=== PATIENT | male | born 1975 | race Caucasian/White ===

== ENCOUNTER 2017-04-14 18:55 | Emergency (ER) | payer BC ==
[~2017-04-14] VITALS: Ht 193 cm; Wt 93.2 kg
[~2017-04-14 18:55] MED LIST: ACET325T96 PO; AMPH20TA2 PO; OMEP20CA59 PO; PRO BIOTIC PO; VENL150C56 PO
[2017-04-14 19:00] VITALS: TEMP 36.8; Ht 193 cm; Wt 93.2 kg
[2017-04-14] MEDS ORDERED: ESCI1TAB6 PO (19:06)
[2017-04-14] MEDS ORDERED: LXP10 PO (19:06)
[2017-04-14] MEDS ORDERED: ATV5X PO (19:06)
[2017-04-14] MEDS ORDERED: OXYCODONE HCL IR 5 MG TAB (IMMEDIATE RELEASE) PO STA (19:14)
[2017-04-14] MEDS ORDERED: ONDANSETRON 4MG OD TAB PO ONE (19:15)
--- NOTE | 2017-04-14 20:13 | DIAGNOSTIC IMAGING REPORT ---
RIGHT RIBS UNILATERAL WITH PA CHEST CLINICAL HISTORY: right rib pain fall Right COMPARISON STUDY: Chest 11/28/2012. FINDINGS: The lungs are clear. The heart is normal in size. No pleural effusions. No pneumothorax. No rib fractures. IMPRESSION: No rib fractures. No pneumothorax. Electronically signed by: Eric Renee M.D. 04/14/2017 8:11 PM Dictated Date/Time: 04/14/2017 8:09 PM
--- NOTE | 2017-04-14 20:15 | EMERGENCY ROOM VISIT NOTE ---
History First contact with patient: 19:08 Chief Complaint: RIB PAIN Stated Complaint: FELL OUT OF H[place]MOCK, RIGHT CHEST/RIB PAIN History of Present Illness The patient is a 42 year old male who presents to the Emergency Room with complaints of right anterior rib pain. The patient states that he went to get into a freestanding hammock and missed and fell out. He states that he fell onto the ground, striking his right ribs on the concrete and the base of the hammock. The patient complains of marked pain in the right lower anterior and lateral ribs. He rates his discomfort an 8/10. He took ibuprofen with no significant improvement. He states he also scraped his left foot on the concrete but denies any pain in his foot. He is able to walk without difficulty. He denies striking his head or having loss of consciousness. He denies any nausea or vomiting. He denies any abdominal pain. Review of Systems A 10 system review of systems was completed with positives and pertinent negatives listed in the HPI. Past Medical/Surgical History Medical Problems: (1) ALS (amyotrophic lateral sclerosis) (2) Bronchitis (3) Depression (4) Vasectomy Social History Smoking Status: Never Smoker Alcohol Use: occasionally Drug Use: none Marital Status: Occupation Status: employed Current/Historical Medications Scheduled Amphetamine-Dextroamphetamine 20MG (Adderall 20MG), 20 MG PO BID Escitalopram Oxalate (Lexapro), 1 TAB PO DAILY Escitalopram Oxalate (Escitalopram Oxalate), 1 TAB PO DAILY Lorazepam (Lorazepam), 2 TAB PO HS Omeprazole (Prilosec), 20 MG PO QAM Scheduled PRN Oxycodone Ir (Roxicodone Ir), 1-2 TAB PO Q4H PRN for Pain Physical Exam Vital Signs Date Time Temp Pulse Resp B/P (MAP) Pulse Ox O2 Delivery O2 Flow Rate FiO2 04/14/17 22:18 82 20 126/76 98 04/14/17 21:15 90 18 128/81 98 Room Air 04/14/17 19:00 36.8 105 18 135/85 95 Room Air Physical Exam VITALS: Vitals are noted on the nurse's note and reviewed by myself. Vital signs stable. The patient is afebrile. He is not hypoxic. GENERAL: This is a 42-year-old male, in no acute distress, nondiaphoretic, well- developed well-nourished. SKIN: The skin was without rashes, erythema, edema, or bruising. There is no tenting of the skin. Capillary reflex less than 2 seconds. HEAD: Normocephalic atraumatic. EARS: The external ears are normal in appearance. EYES: Pupils equal round and reactive to light and accommodation. Conjunctivae without injection, sclerae without icterus. Extraocular movements intact. NOSE: Patent, turbinates without inflammation or discharge. MOUTH: Mucous membranes moist. Tonsils are not enlarged. Pharynx without erythema or exudate. Uvula midline. Airway patent. Tongue does not deviate. NECK: Supple without nuchal rigidity. No JVD. HEART: Regular rate and rhythm without murmurs gallops or rubs. LUNGS: Clear to auscultation bilaterally without wheezes, rales or rhonchi. There is marked anterior chest wall tenderness. No retractions or accessory muscle use. ABDOMEN: Positive bowel sounds x 4. Soft, nontender, without masses or organomegaly. MUSCULOSKELETAL: No muscle atrophy, erythema, or edema noted. Full range of motion in all extremities. No tenderness to palpation. Normal gait. Strength 5/5 throughout. NEURO: Patient was alert and oriented to person place and time. No focal neurological deficits. Medical Decision & Procedures ER Provider Diagnostic Interpretation: RIGHT RIBS UNILATERAL WITH PA CHEST CLINICAL HISTORY: right rib pain fall Right COMPARISON STUDY: Chest 11/28/2012. FINDINGS: The lungs are clear. The heart is normal in size. No pleural effusions. No pneumothorax. No rib fractures. IMPRESSION: No rib fractures. No pneumothorax. Laboratory Results 04/14/17 20:44 Red Blood Count 4.83, Mean Corpuscular Volume 89.9, Mean Corpuscular Hemoglobin 31.3, Mean Corpuscular Hemoglobin Concent 34.8, Mean Platelet Volume 10.7, Neutrophils (%) (Auto) 64.0, Lymphocytes (%) (Auto) 26.1, Monocytes (%) (Auto) 7.4, Eosinophils (%) (Auto) 2.0, Basophils (%) (Auto) 0.5, Neutrophils # (Auto) 3.52, Lymphocytes # (Auto) 1.44, Monocytes # (Auto) 0.41, Eosinophils # (Auto) 0.11, Basophils # (Auto) 0.03 Test 04/14/17 20:44 04/14/17 20:48 White Blood Count 5.51 K/uL (4.8-10.8) Red Blood Count 4.83 M/uL (4.7-6.1) Hemoglobin 15.1 g/dL (14.0-18.0) Hematocrit 43.4 % (42-52) Mean Corpuscular Volume 89.9 fL (80-100) Mean Corpuscular Hemoglobin 31.3 pg (25-34) Mean Corpuscular Hemoglobin Concent 34.8 g/dl (32-36) Platelet Count 232 K/uL (130-400) Mean Platelet Volume 10.7 fL (7.4-10.4) Neutrophils (%) (Auto) 64.0 % Lymphocytes (%) (Auto) 26.1 % Monocytes (%) (Auto) 7.4 % Eosinophils (%) (Auto) 2.0 % Basophils (%) (Auto) 0.5 % Neutrophils # (Auto) 3.52 K/uL (1.4-6.5) Lymphocytes # (Auto) 1.44 K/uL (1.2-3.4) Monocytes # (Auto) 0.41 K/uL (0.11-0.59) Eosinophils # (Auto) 0.11 K/uL (0-0.5) Basophils # (Auto) 0.03 K/uL (0-0.2) RDW Standard Deviation 38.8 fL (36.4-46.3) RDW Coefficient of Variation 12.0 % (11.5-14.5) Immature Granulocyte % (Auto) 0.0 % Immature Granulocyte # (Auto) 0.00 K/uL (0.00-0.02) Bedside Hemoglobin 15.0 g/dl (14.0-18.0) Bedside Hematocrit 44 % (42-52) Bedside Sodium 141 mEq/L (135-144) Bedside Potassium 3.6 mEq/L (3.3-5.0) Bedside Chloride 100 mEq/L (101-112) Bedside Total CO2 24 mEq/l (24-31) Anion Gap 22.0 mmol/L (16-25) Bedside Blood Urea Nitrogen 8 mg/dl (7-18) Bedside Creatinine 0.9 mg/dl (0.6-1.3) Bedside Glucose (other) 113 mg/dl (70-99) Bedside Ionized Calcium ([place]) 1.22 mmol/l (1.12-1.32) Medications Administered Medications (Trade) Dose Ordered Sig/Terrell Route Start Time Stop Time Status Last Admin Dose Admin Oxycodone HCl (Roxicodone Immediate Rel Tab) 5 mg NOW STAT PO 04/14/17 19:14 04/14/17 19:15 DC 04/14/17 19:29 5 MG Ondansetron HCl (Zofran Odt) 4 mg ONE ONCE PO 04/14/17 19:15 04/14/17 19:16 DC 04/14/17 19:29 4 MG Oxycodone HCl (Roxicodone Immediate Rel 5MG Home Pack) 1 homepack UD ONCE PO 04/14/17 21:00 04/14/17 21:01 DC 04/14/17 22:10 1 HOMEPACK ED Course The patient was seen and examined. Previous visits were reviewed. The patient sustained a mechanical fall just prior to arrival. He complains of right anterior and lateral rib pain. An x-ray does not reveal any acute rib fracture , pneumothorax or hemothorax. The patient was given OxyIR and Zofran in the emergency department. The patient did not initially have any abdominal tenderness on examination. After the studies were obtained, I did a repeat abdominal examination. The patient does have mild tenderness in the right upper quadrant. An IV was initiated, i-STAT and CBC were obtained. CT scan of the abdomen and pelvis with IV and oral contrast, trauma prep, was ordered. At the time of sign out, CT scan of the abdomen and pelvis was pending. The case was signed out to Lis Steele PA-C. Please see her dictation for CT results and disposition. The patient will be treated with oxycodone for the rib contusion. He should follow-up with his family doctor in one week for a recheck and repeat x-ray. He should return with any worsening symptoms. Medical Decision DIFFERENTIAL DIAGNOSIS: Aortic dissection, myocarditis, pericarditis, cervical disc disease, costochondritis, herpes zoster, rib fracture, pleuritis, pneumonia , pulmonary embolus, tension pneumothorax, anxiety disorder, somatoform disorder , choledocholithiasis, status, esophagitis, esophageal spasm, esophageal reflux , esophageal rupture, pancreatitis, peptic ulcer disease, cardiac ischemia, ST elevation [place], acute coronary syndrome, arrhythmia, coronary artery vasospasm. vavular heart disease, coronary artery disease, among others. [facility] Drug Monitoring Program Search Results: patient reviewed within database, no issues identified Impression Primary Impression: Rib pain on right side Additional Impressions: Fall Upper abdominal pain Departure Information Dispostion Home / Self-Care Condition GOOD Prescriptions Oxycodone Ir (Roxicodone Ir) 5 Mg Tab 1-2 TAB PO Q4H Y for Pain, #36 TAB For Initial Treatment Prov: Rachna Lott PA-C 04/14/17 Referrals Vinayak Guillen M.D.([facility]) (PCP) Patient Instructions ED Contusion Rib, [facility] Additional Instructions Ibuprofen 600 mg every 6-8 hours or moderate pain Oxy IR 1-2 tablets every 4-6 hrs as needed for worse pain. No driving or alcohol use with Oxy IR. Contact your family doctor to schedule a follow-up appointment in 1 week for recheck and potential repeat x-rays if symptoms persist Return with any worsening symptoms Problem Qualifiers
[2017-04-14] MEDS ORDERED: OPTIRAY 320 IV PRN (20:45)
[2017-04-14] MEDS ORDERED: OXYC1TAB3 PO (20:47)
[2017-04-14] MEDS ORDERED: OXYCODONE IR HOME PACK PO ONE (21:00)
[2017-04-14 21:05] LABS: ISTAT CREATININE 0.9 mg/dl (0.6-1.3); ISTAT IONIZED CALCIUM 1.22 mmol/l (1.12-1.32)
[2017-04-14 21:25] LABS: BASO % 0.5 %; BASO ABS # 0.03 K/uL (0-0.2); COMPLETE YES; HEMATOCRIT 43.4 % (42-52); LYMPH % 26.1 %; LYMPH ABS # 1.44 K/uL (1.2-3.4); MEAN CELL VOLUME 89.9 fL (80-100); MEAN CORPUSCULAR HEMOGLOBIN 31.3 pg (25-34); MEAN CORPUSCULAR HGB CONC 34.8 g/dl (32-36); MEAN PLATELET VOLUME 10.7 fL (7.4-10.4); MONO % 7.4 %; PLATELET COUNT 232 K/uL (130-400); RED BLOOD COUNT 4.83 M/uL (4.7-6.1); WHITE BLOOD COUNT 5.51 K/uL (4.8-10.8)
--- NOTE | 2017-04-14 21:32 | DIAGNOSTIC IMAGING REPORT ---
ABDOMEN AND PELVIS CT WITH IV AND ORAL CONTRAST CT DOSE: 463.93 mGy.cm HISTORY: Right upper quadrant pain. Fall. TECHNIQUE: Multiaxial CT images of the abdomen and pelvis were performed following the use of intravenous and oral contrast. A dose lowering technique was utilized adhering to the principles of ALARA. COMPARISON STUDY: Abdomen and pelvis CT 11/28/2012. FINDINGS: The lung bases are clear. No pneumoperitoneum. No pneumatosis. No fractures within the visualized osseous structures. Stable 5 mm hypodense lesion within the inferior right hepatic lobe. This is too small to characterize but favors a cyst. The spleen, pancreas, gallbladder, adrenal glands, and kidneys are unremarkable. No retroperitoneal lymphadenopathy. Normal bladder. No bowel wall thickening or obstruction. The appendix appears surgically absent. IMPRESSION: No acute traumatic process within the abdomen or pelvis. Electronically signed by: Eric Renee M.D. 04/14/2017 9:31 PM Dictated Date/Time: 04/14/2017 9:24 PM
--- NOTE | 2017-04-14 22:05 | EMERGENCY ROOM VISIT NOTE ---
ED Visit Note ED NOTE: Care of this 42-year-old white male patient was signed out to me from Elham Lott PA-C, at change of shift. Please refer to her dictation for the complete history, physical and ED course to this point. Briefly, patient and a fall, injuring his right ribs. Initial rib and chest x-rays were negative for acute fracture or pneumothorax. On repeat examination the patient had right upper quadrant pain, thus CT scan of the abdomen and pelvis with IV contrast was ordered. CT scan did not note any acute post traumatic findings in the abdomen or the pelvis. Radiographic studies were reviewed with the patient and his significant other. Supportive care measures were reinforced. He was given an oxycodone home pack. ABDOMEN AND PELVIS CT WITH IV AND ORAL CONTRAST CT DOSE: 463.93 mGy.cm HISTORY: Right upper quadrant pain. Fall. TECHNIQUE: Multiaxial CT images of the abdomen and pelvis were performed following the use of intravenous and oral contrast. A dose lowering technique was utilized adhering to the principles of ALARA. COMPARISON STUDY: Abdomen and pelvis CT 11/28/2012. FINDINGS: The lung bases are clear. No pneumoperitoneum. No pneumatosis. No fractures within the visualized osseous structures. Stable 5 mm hypodense lesion within the inferior right hepatic lobe. This is too small to characterize but favors a cyst. The spleen, pancreas, gallbladder, adrenal glands, and kidneys are unremarkable. No retroperitoneal lymphadenopathy. Normal bladder. No bowel wall thickening or obstruction. The appendix appears surgically absent. IMPRESSION: No acute traumatic process within the abdomen or pelvis.
[2017-04-14 22:18] VITALS: BP 126/76; PULSE 82; O2SAT 98
== END 2017-04-14 22:22 | disposition home or self-care (01) ==
LOC: C.EDB 18:57 → C.EDD 22:22
DX: S29.9XXA Unspecified injury of thorax, initial encounter (principal); R07.81 Pleurodynia; W17.89XA Other fall from one level to another, initial encounter; F32.9 Major depressive disorder, single episode, unspecified; Z79.899 Other long term (current) drug therapy

== ENCOUNTER 2020-02-14 16:17 | Inpatient (IN) ==
[2020-02-14 16:53] LABS: Basophils # (auto) 0.03 K/uL (0-0.2); Basophils % (auto) 0.5 %; Eosinophils # (auto) 0.05 K/uL (0-0.5); Eosinophils % (auto) 0.8 %; Hematocrit (blood only) 48.2 % (42-52); Hemoglobin 16.6 g/dL (14.0-18.0); Immature Granulocytes # (auto) 0.01 K/uL (0.00-0.02); Immature Granulocytes % (auto) 0.2 %; Lymphocytes # (auto) 1.21 K/uL (1.2-3.4); Lymphocytes % (auto) 18.9 %; Mean Corpuscular Hgb Conc 34.4 g/dL (32-36); Mean Corpuscular Volume 92.9 fL (80-100); Monocytes # (auto) 0.46 K/uL (0.11-0.59); Monocytes % (auto) 7.2 %; Neutrophils # (auto) 4.63 K/uL (1.4-6.5); Neutrophils % (auto) 72.4 %; Platelet Count 169 K/uL (130-400); RDW Coefficient of Variation 12.7 % (11.5-14.5); RDW Standard Deviation 42.8 fL (36.4-46.3); Red Blood Count 5.19 M/uL (4.7-6.1); White Blood Count 6.39 K/uL (4.8-10.8)
[2020-02-14 16:54] LABS: Albumin Level 3.7 gm/dl (3.4-5.0); BUN Creatinine Ratio 16.4 (10-20); Calcium 8.3 mg/dl (8.5-10.1); Creatinine Clr Calc Pharmacy 161.2 ml/min; Est GFR (African American) 135.4; Est GFR (Non-African American) 116.9; Potassium 3.5 mmol/L (3.5-5.1)
[2020-02-14 16:57] LABS: INR 1.1 (0.9-1.1); Partial Thromboplastin Ratio 0.9; Partial Thromboplastin Time 25.9 Seconds (21.0-31.0); Prothrombin Time 11.9 Seconds (9.0-12.0)
[2020-02-14] MEDS ORDERED: OPTIRAY 320 125ml IV PRN (17:07)
[2020-02-14 17:18] LABS: Albumin Globulin Ratio 0.9 (0.9-2); Bilirubin,Total 0.8 mg/dl (0.2-1); Globulin 3.9 gm/dl (2.5-4.0); Total Protein 7.6 gm/dl (6.4-8.2); Troponin I 0.069 ng/ml (0-0.045)
--- NOTE | 2020-02-14 17:26 | Emergency Department Note ---
History of Present Illness General Chief complaint: Chest Pain Stated complaint: CHEST PAIN, SOB Time Seen by Provider: 02/14/20 16:42 Source: patient Limitations: no limitations History of Present Illness Provider complaint: sob Onset (ago): hour(s) Location: chest Radiation: non-radiation Severity: moderate Maximum Pain Intensity: 2 Exacerbated By: + movement Associated symptoms: no cough, no nausea/vomiting and no syncope Treatments prior to arrival: none This is a 44-year-old male with a history of ALS who presents after sudden onset of shortness of breath today. Patient states he has felt well and been working from home and abruptly noted that he was short of breath which was worse when he attempted to walk to the bathroom. Patient states he did feel lightheaded and dizzy but did not pass out. Patient had a sense of rapid heart rate accompanying this, no skipping or fluttering. Patient denies any prior history of asthma or COPD, denies any was ever smoker. No prior history of heart problems. Patient states that this point the ALS had not yet affected his breathing in any way. Patient states he does have chronic lower extremity edema, right greater than left, and recently has started wearing compression stockings. No history of DVT/PE in him or any family member. No other recent change in diet or medication. Patient does feel improved with the oxygen that was applied here by nursing staff. Pt seen during a time of high acuity and national emergency pandemic while wearing PPE. Home Medications Home Medications Medication Instructions Recorded Confirmed Type dextroamphetamine-amphetamine 30 mg PO BID 01/31/19 02/14/20 History escitalopram oxalate 20 mg PO QAM 01/31/19 02/14/20 History omeprazole 20 mg PO QAM 01/31/19 02/14/20 History lorazepam [Ativan] 1 mg PO DIRECTED PRN 06/17/19 02/14/20 History multivitamin 1 tab PO DAILY 07/09/19 02/14/20 History mirtazapine 15 mg PO HS 02/14/20 02/14/20 History ondansetron HCl [Zofran] 4 mg PO BID PRN 02/14/20 02/14/20 History Allergies Allergy/AdvReac Type Severity Reaction Status Date / Time tramadol AdvReac Unknown GI Verified 02/14/20 17:48 discomfort Past Med/Surg History Medical History ADD (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 ALS (amyotrophic lateral sclerosis) (Acute) GERD (gastroesophageal reflux disease) Surgical History H/O rhinoplasty History of vasectomy S/P left knee arthroscopy Family History Father Pulmonary embolism Mother Hypertension Social History Preferred Language: Thai Communication Ability: Effective Clerical Order Filler Required: No Beliefs That Will Affect Care: None marital status: Current Living Situation: Family current occupational status: employed Other Information That Helps Us Care for You: No Feels Safe at Home: Yes Safety Concerns: Feels Safe At This Time Smoking Status: Never smoker Do You Dip or Chew Tobacco: No ; Second Hand Exposure: No ; Tobacco Cessation Education Requested by Patient: No Hx Alcohol Use: Yes Alcohol type: hard liquor Hx Substance Use: No Review of Systems See HPI for pertinent positives & negatives. and A total of 10 systems reviewed and were otherwise negative Physical Exam Vital Signs Vital Signs - 24 hr 02/14/20 16:17 02/14/20 16:18 02/14/20 16:37 Temperature 37.0 C Temperature Source Oral Pulse Rate 143 H 144 H Pulse Rate from SpO2 Sensor 144 H Respiratory Rate 28 H 26 H Blood Pressure 129/99 129/99 Blood Pressure Mean 111 109 Pulse Oximetry 93 93 Oxygen Delivery Method Room Air Nasal Cannula Oxygen Flow Rate 2 Sepsis Recent Fever Within 48 Hours No Sepsis New/Unexplained Change in Mental Status No Sepsis Action Taken by Nursing No Action Required Oxygen Flow Rate - Titration Pulse Oximetry Post Tiitration 02/14/20 16:40 02/14/20 16:43 02/14/20 16:44 Temperature Temperature Source Pulse Rate 132 H Pulse Rate from SpO2 Sensor 132 H Respiratory Rate 22 Blood Pressure 123/98 Blood Pressure Mean 102 Pulse Oximetry 89 L 89 L 96 Oxygen Delivery Method Room Air Nasal Cannula Room Air Oxygen Flow Rate 0 2 Sepsis Recent Fever Within 48 Hours Sepsis New/Unexplained Change in Mental Status Sepsis Action Taken by Nursing Oxygen Flow Rate - Titration 2 4 Pulse Oximetry Post Tiitration 89 L 92 02/14/20 17:00 02/14/20 17:20 02/14/20 17:30 Temperature Temperature Source Pulse Rate 139 H 130 H 130 H Pulse Rate from SpO2 Sensor 139 H 131 H 129 H Respiratory Rate 27 H 28 H 27 H Blood Pressure 115/93 127/97 122/96 Blood Pressure Mean 97 121 99 Pulse Oximetry 97 100 98 Oxygen Delivery Method Nasal Cannula Oxygen Flow Rate 4 Sepsis Recent Fever Within 48 Hours Sepsis New/Unexplained Change in Mental Status Sepsis Action Taken by Nursing Oxygen Flow Rate - Titration Pulse Oximetry Post Tiitration 02/14/20 18:00 Temperature Temperature Source Pulse Rate 135 H Pulse Rate from SpO2 Sensor 135 H Respiratory Rate 24 Blood Pressure 130/102 H Blood Pressure Mean 105 Pulse Oximetry 99 Oxygen Delivery Method Nasal Cannula Oxygen Flow Rate 4 Sepsis Recent Fever Within 48 Hours Sepsis New/Unexplained Change in Mental Status Sepsis Action Taken by Nursing Oxygen Flow Rate - Titration Pulse Oximetry Post Tiitration GENERAL: alert, well appearing, well nourished, no distress, non-toxic EYE EXAM: normal conjunctiva, PERRL and EOM's grossly intact OROPHARYNX: no exudate, no erythema, lips, buccal mucosa, and tongue normal and mucous membranes are moist NECK: supple, no nuchal rigidity, no adenopathy, non-tender LUNGS: Clear to auscultation. Normal chest wall mechanics, no w/r/r HEART: no murmurs, S1 normal and S2 normal, sinus tachycardia at 140 on telemetry ABDOMEN: abdomen soft, non-tender, normo-active bowel sounds, no masses, no rebound or guarding. BACK: Back is symmetrical on inspection and there is no deformity, no midline tenderness, no CVA tenderness. SKIN: no rashes and no bruising UPPER EXTREMITIES: upper extremities are grossly normal. FROM, nml pulses b/l. Mild muscular atrophy noted bilaterally. LOWER EXTREMITIES: Bilateral 2+ pitting edema, right greater than left. No palpable mass, no calf tenderness FROM, nml pulses b/l. Mild muscular atrophy noted. NEURO EXAM: Normal sensorium, cranial nerves II-XII grossly intact, normal speech, no gross weakness of arms, no gross weakness of legs. Gross sensation intact. Course Course 1731: Pt updated on results. 1740: Discussed with Dr. Gunter. States heparin vs tPA should discussed with the patient. 1750: Patient comfortable with the plan to initiate heparin. He is aware that should his condition worsen they could reconsider additional use of TPA. 1800: Case discussed with Estephanie Keenan hospitalist service. Dr. Powers will at the accepting attending. Administered Medications Acetaminophen (Tylenol) 650 mg PO Q4H PRN PRN Reason: Pain Stop: 03/16/20 19:56 Last Admin: 02/15/20 20:11 Dose: 650 mg Documented by: [id number] Amphetamine/Dextroamphetamine (Adderall) 30 mg PO BID@0800,1200 [facility] Stop: 02/29/20 07:59 Last Admin: 02/15/20 12:54 Dose: Not Given Documented by: [id number] Admin: 02/15/20 07:59 Dose: Not Given Documented by: [id number] Escitalopram Oxalate (Lexapro Tab) 20 mg PO QAM [facility] Stop: 03/16/20 08:59 Last Admin: 02/15/20 07:54 Dose: 20 mg Documented by: [id number] Heparin Sodium/Dextrose (Heparin Sodium/Dextrose) 25,000 units in 500 mls @ 27 mls/hr IV .[id number] [facility]; Protocol Stop: 03/15/20 17:59 Last Titration: 02/15/20 19:10 Dose: 1,350 units/hr, 27 mls/hr Documented by: [id number] Cosigned by: [id number] Admin: 02/15/20 13:45 Dose: 1,350 units/hr, 27 mls/hr Documented by: [id number] Cosigned by: [id number] Titration: 02/15/20 12:47 Dose: 1,350 units/hr, 27 mls/hr Documented by: [id number] Cosigned by: [id number] Titration: 02/15/20 07:17 Dose: 1,350 units/hr, 27 mls/hr Documented by: [id number] Cosigned by: [id number] Titration: 02/15/20 00:59 Dose: 1,350 units/hr, 27 mls/hr Documented by: [id number] Cosigned by: [id number] Admin: 02/14/20 18:43 Dose: 1,450 units/hr, 29 mls/hr Documented by: [id number] Cosigned by: [id number] Lorazepam (Ativan) 1 mg PO DAILY PRN PRN Reason: Anxiety/Agitation Stop: 03/16/20 13:07 Last Admin: 02/15/20 13:45 Dose: 1 mg Documented by: [id number] Lorazepam (Ativan) 1 mg PO HS PRN PRN Reason: Insomnia Stop: 03/16/20 22:15 Last Admin: 02/15/20 22:35 Dose: 1 mg Documented by: [id number] Mirtazapine (Remeron) 15 mg PO HS [facility] Stop: 03/15/20 20:59 Last Admin: 02/15/20 20:10 Dose: 15 mg Documented by: [id number] Admin: 02/14/20 21:27 Dose: 15 mg Documented by: [id number] Multivitamins (Multivitamin Tab) 1 tab PO DAILY [facility] Stop: 03/16/20 08:59 Last Admin: 02/15/20 07:54 Dose: 1 tab Documented by: [id number] Pantoprazole Sodium (Protonix) 40 mg PO QAM [facility] Stop: 03/16/20 08:59 Last Admin: 02/15/20 07:54 Dose: 40 mg Documented by: [id number] Discontinued Medications Heparin Sodium (Porcine) (Heparin Sodium (Porcine)) Confirm Administered Dose 5,000 units .ROUTE .STK-MED ONE Stop: 02/14/20 18:39 Last Admin: 02/14/20 20:24 Dose: Not Given Documented by: [id number] Admin: 02/14/20 18:44 Dose: 5,000 units Documented by: [id number] Cosigned by: [id number] Heparin Sodium (Porcine) (Heparin Sodium (Porcine)) Confirm Administered Dose 5,000 units .ROUTE .STK-MED ONE Stop: 02/14/20 18:40 Last Admin: 02/14/20 18:45 Dose: Not Given Documented by: [id number] Heparin Sodium/Dextrose () 1 ea IV NOW STA; Protocol Stop: 02/14/20 17:57 Last Admin: 02/14/20 18:44 Dose: 1 ea Documented by: [id number] Ioversol (Optiray 320 125ml) 120 ml IV ONCE PRN PRN Reason: Interaction Checking Stop: 02/18/20 17:06 Last Admin: 02/14/20 17:07 Dose: 120 ml Documented by: [id number] Lorazepam (Ativan) 0.5 mg PO NOW STA Stop: 02/14/20 21:28 Last Admin: 02/14/20 21:40 Dose: 0.5 mg Documented by: [id number] Critical Care Time Critical Care Time: Yes Total Critical Care Time: 62 Critical care of 62 min performed to assess and manage high likelihood of life- threatening PE, involving labs/imaging/anticoagulation performed with assessment to evaluate submassive PE diagnosis with frequent reassessment. This time includes bedside time, treatment discussions with patient/family/consultants, documentation time and excludes procedure time. Medical Decision Making Differential Diagnosis Differential diagnoses includes but is not limited to pneumonia, bronchitis, COPD/Asthma exacerbation, pneumothorax, pulmonary embolism, congestive heart failure, acute coronary syndrome Medical Records Attestation: I reviewed the patient's medical records. Home Medications Current Medication List: was personally reviewed by me Laboratory Data Attestation: I reviewed the patient's lab results. Result diagrams: 02/15/20 04:21 02/15/20 04:21 Lab Results 02/14/20 02/14/20 02/14/20 Range/Units 16:30 16:30 16:30 WBC 6.39 (4.8-10.8) K/uL RBC 5.19 (4.7-6.1) M/uL Hgb 16.6 (14.0-18.0) g/dL Hct 48.2 (42-52) % MCV 92.9 (80-100) fL MCH 32.0 (25-34) pg MCHC 34.4 (32-36) g/dL RDW Std Deviation 42.8 (36.4-46.3) fL RDW Coeff of Hussain 12.7 (11.5-14.5) % Plt Count 169 (130-400) K/uL MPV 11.0 H (7.4-10.4) fL Immature Gran % (Auto) 0.2 % Neut % (Auto) 72.4 % Lymph % (Auto) 18.9 % Martin % (Auto) 7.2 % Eos % (Auto) 0.8 % Baso % (Auto) 0.5 % Immature Gran # (Auto) 0.01 (0.00-0.02) K/uL Neut # (Auto) 4.63 (1.4-6.5) K/uL Lymph # (Auto) 1.21 (1.2-3.4) K/uL Martin # (Auto) 0.46 (0.11-0.59) K/uL Eos # (Auto) 0.05 (0-0.5) K/uL Baso # (Auto) 0.03 (0-0.2) K/uL PT 11.9 (9.0-12.0) Seconds INR 1.1 (0.9-1.1) APTT 25.9 (21.0-31.0) Seconds PTT Ratio 0.9 Sodium 142 (136-145) mmol/L Potassium 3.5 (3.5-5.1) mmol/L Chloride 109 H (98-107) mmol/L Carbon Dioxide 26 (21-32) mmol/L Anion Gap 7.0 (3-11) BUN 11 (7-18) mg/dl Creatinine 0.67 (0.6-1.4) mg/dl Est Cr Clr Drug Dosing 161.2 ml/min Est GFR ( Amer) 135.4 Est GFR (Non-Af Amer) 116.9 BUN/Creatinine Ratio 16.4 (10-20) Glucose 96 (70-99) mg/dl Calcium 8.3 L (8.5-10.1) mg/dl Total Bilirubin 0.8 (0.2-1) mg/dl AST 35 (15-37) U/L ALT 71 (12-78) U/L Alkaline Phosphatase 161 H (45-117) U/L Troponin I 0.069 H* (0-0.045) ng/ml Total Protein 7.6 (6.4-8.2) gm/dl Albumin 3.7 (3.4-5.0) gm/dl Globulin 3.9 (2.5-4.0) gm/dl Albumin/Globulin Ratio 0.9 (0.9-2) Lipase 112 (73-393) U/L Imaging Data Radiologist's Impression: [place], [place] [phone] CT Scan Report Patient: CRIS STEEN Date: 02/14/20 MR#: [id number]: [id number] Acct ID:[id number]: [address] Date: [address] Zip: [place] [address] Age: 44Location: ED Sex: M Room/Bed: Att Phy:Diagnosis: CHEST PAIN, SOB Rema Phy: Vinayak Guillen MD(JOBY)Service Date: 02/14/20 [facility] Phy: Vinayak Guillen MD(JOBY)Interpreting Phy: Beau Hunt MD Admit Phy: Ordering Phy: Erica Barbour, cc: ~ CT ANGIOGRAM OF THE CHEST CLINICAL HISTORY: Atypical chest pain and shortness of breath. Possible pulmonary embolism. COMPARISON STUDY: Chest x-ray April 2017 TECHNIQUE: Following the IV administration of 320 mL of Optiray-320, CT angiogram of the thorax was performed from the thoracic inlet to the lung bases utilizing the pulmonary embolus protocol. Images are reviewed in the axial, sagittal, and coronal planes. IV contrast was administered without complication. MIP imaging was performed. A dose lowering technique was utilized adhering to the principles of ALARA. CT DOSE: 559.53 mGycm FINDINGS: There is a partially visualized nonspecific 9 mm right lobe hepatic hypodensity. No pathologically enlarged axillary mediastinal or hilar lymph nodes were visualized. There was no evidence of thoracic aortic dilatation. There are extensive bilateral pulmonary artery filling defects with a saddle embolus measuring 7 mm in diameter. There is slight flattening of the interventricular septum raises the possibility of mild right ventricular strain. No pleural effusions are visualized. There is a 7 mm left upper lobe pulmonary nodule. Follow-up per Fleischner criteria is recommended. There is bilateral gynecomastia IMPRESSION: 1. Extensive bilateral pulmonary embolism with a saddle embolus measuring 7 mm in diameter. Equivocal evidence of right ventricular strain 2. 7 mm left upper lobe pulmonary nodule. Please refer to below summary of Fleischner criteria recommendations for follow-up of incidental CT nodules (Cecelia Yang, Guidelines for management of small pulmonary nodules detected on CT scans: A statement from the Fleischner Society, Radiology 237: [phone].) SOLID NODULES Solitary nodule size: <6 mm * low risk patients: no follow-up needed * high risk patients: optional CT at 12 months Solitary nodule size: 6-8 mm * low risk patients: follow-up at 6-12 months, then consider further follow-up at 18-24 months * high risk patients: initial follow-up CT at 6-12 months and then at 18-24 months if no change Solitary nodule size: >8 mm * either low or high risk patients - consider follow-up CT at 3 months, and/or CT-PET, and/or biopsy Multiple nodules size: <6 mm * low risk patients: no routine follow-up * high risk patients: optional CT at 12 months Multiple nodules size: 6-8 mm * low risk patients: follow-up at 3-6 months, then consider further follow-up at 18-24 months * high risk patients: follow-up at 3-6 months, then at 18-24 months if no change Multiple nodules size: >8 mm * low risk patients: follow-up at 3-6 months, then consider further follow-up at 18-24 months * high risk patients: follow-up at 3-6 months, then at 18-24 months if no change Note: newly detected indeterminate nodule in persons 35 years of age or older. * low risk patients: minimal or absent history of smoking and/or other known risk factors * high risk patients: history of smoking or of other known risk factors (e.g. first degree relative with lung cancer, or exposure to asbestos, radon, uranium) * if a nodule up to 8 mm is partly solid or is ground glass further follow-up is required after 24 months to exclude possible slow growing adenocarcinoma (DEDRA) SUBSOLID NODULES Solitary pure ground-glass nodule * nodule size <6 mm - no CT follow-up required * nodule size >=6 mm - follow-up CT at 6-12 months, then every 2 years until 5 years Solitary part-solid nodule * nodule size <6 mm - no CT follow-up required * nodule size >=6 mm - follow-up CT at 3-6 months. If unchanged, and solid component remains <6 mm, then annual follow-up for 5 years Multiple subsolid nodules * nodule size <6 mm - follow-up CT at 3-6 months, consider further follow-up at 2 and 4 years if stable * nodule size >=6 mm - follow-up CT at 3-6 months, subsequent management based on the most suspicious nodule(s) ACT 112: Negative or not required by law. Electronically signed by: Beau Hunt M.D. 02/14/2020 5:24 PM ECG Data Attestation: I personally reviewed and interpreted this ECG as follows: Indication: + SOB/dyspnea Rate (beats per minute): 139 Rhythm: + sinus tachycardia ECG Intervals/blocks: + Normal QRS and + Normal QT ECG [place]: + Normal ECG ST segments: + Normal ST segments Blood Pressure Blood Pressure Findings: Normal blood pressure MDM Narrative Pt here ill appearing with tachycardia, tachypnea, and hypoxia. Given abrupt onset of symptoms and lack of other symptoms or history to suggest alternative etiology, high concern for PE. Discussed with pt labs and CT instead of cxr. Pt sent to CT CHEMO with nurse while on oxygen. BP stable despite other VS abnormalities. CT revealed saddle PE with RV strain. Given elevated trop and significant symptoms, I discussed the case with Dr. Gunter as while pt with a submassive PE, I felt he may be a good candidate for tPA. Dr Gunter stated the decision could be left up to the patient. Discussed risks/benefits of tPA vs heparin drip with the patient and he opted for heparin. CAse discussed with hospitalist. An order was placed for continuous cardiac monitoring. The monitor shows a rate of _138_ with sinus tachycardia_ rhythm. Impression & Plan Pulmonary embolism, Dyspnea, Tachycardia, Elevated troponin, ALS (amyotrophic lateral sclerosis) Discharge Plan Visit Data *Final* Discharge Date/Time: 02/14/20 18:56 Chief Complaint: Chest Pain Stated Complaint: CHEST PAIN, SOB ED Provider: Erica Barbour Discharge Problem: Pulmonary embolism, Dyspnea, Tachycardia, Elevated troponin, ALS (amyotrophic lateral sclerosis) Patient Disposition: Admitted As Inpatient Discharge Instructions Interventions: ED Discharge Assessment Last Done: 02/14/20 18:56
[2020-02-14] MEDS ORDERED: HEPARIN SOD 5,000 UNIT/0.5 ML VIAL ONE (18:39)
[2020-02-14] MEDS: HEPARIN SODIUM/DEXTROSE 25,000 UNITS/500 ML BAG IV SCH (18:43)
[2020-02-14] MEDS: HEPARIN SOD 5,000 UNIT/0.5 ML VIAL ONE ×2 (18:44→20:24)
[2020-02-14] MEDS ORDERED: ICU PROTOCOL FOR HYPERGLYCEMIA PRN (19:24)
--- NOTE | 2020-02-14 20:16 | History & Physical Report ---
Date of Service February 14, 2020 Assessment & Plan (1) Acute saddle pulmonary embolism: (2) Elevated troponin: -Admit to ICU -Patient presenting from home with reports of sudden onset of shortness of breath -In the ED, CTA chest showing extensive bilateral pulmonary embolism with saddle pulmonary embolism, possible right heart strain -Possible provoked PE due to patient's somewhat sedentary state secondary to ALS. Patient also reports his father had pulmonary embolism. -Tachycardic, tachypneic, hypoxic. Oxygen saturations improved with 4 L of oxygen via nasal cannula. BP stable -IV heparin bolus and drip started in ED, will continue -Initial troponin 0.069, continue to trend, likely secondary to demand ischemia/right heart strain -Echo -BL LE venous Doppler (3) ALS (amyotrophic lateral sclerosis): -No acute issues -Follows with neurology at [facility] (4) ADD (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: -Continue Adderall (5) GERD (gastroesophageal reflux disease): -Continue PPI (6) Pulmonary nodule: -CT chest shows 7 mm left upper lobe pulmonary nodule -Outpatient follow-up (7) DVT prophylaxis: -On IV heparin drip Admission and Anticipated Discharge Date Admission Date: February 14, 2020 History of Present Illness Chief Complaint: Shortness of breath Primary Care Provider: Vinayak Guillen MD 44-year-old male with PMH ALS, ADD, GERD, and other problems listed below who presents to the ED for evaluation of shortness of breath. Patient reports that he had sudden onset of shortness of breath while sitting at his computer desk today. He reports associated lightheadedness and dizziness however no syncopal event. No chest pain. Over the past 1 month, patient has noted increasing swelling to his legs and feet, right greater than left. He has been intermittently using compression stockings. Patient reports he otherwise has been feeling well recently. Patient has ALS and continues to be ambulatory with a walker. No abdominal pain, nausea, vomiting, diarrhea. Denies cough and sputum production. No fevers or chills. He denies any urinary symptoms. In the ED, CTA chest shows extensive bilateral pulmonary embolism with saddle pulmonary embolism, possible evidence of right heart strain. Labs show mildly elevated troponin 0.069. Patient is tachycardic, tachypneic, hypoxic room air. BP is stable. Oxygen saturations improved with oxygen via nasal cannula. Patient was given a heparin bolus and started on a drip. Allergies Allergy/AdvReac Type Severity Reaction Status Date / Time tramadol AdvReac Unknown GI Verified 02/14/20 17:48 discomfort Home Medications Home Medications Medication Instructions Recorded Confirmed Type dextroamphetamine-amphetamine 30 mg PO BID 01/31/19 02/14/20 History escitalopram oxalate 20 mg PO QAM 01/31/19 02/14/20 History omeprazole 20 mg PO QAM 01/31/19 02/14/20 History lorazepam [Ativan] 1 mg PO DIRECTED PRN 06/17/19 02/14/20 History multivitamin 1 tab PO DAILY 07/09/19 02/14/20 History mirtazapine 15 mg PO HS 02/14/20 02/14/20 History ondansetron HCl [Zofran] 4 mg PO BID PRN 02/14/20 02/14/20 History Past Med/Surg History Medical History ADD (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 ALS (amyotrophic lateral sclerosis) (Acute) GERD (gastroesophageal reflux disease) Surgical History H/O rhinoplasty History of vasectomy S/P left knee arthroscopy Family History Father Pulmonary embolism Mother Hypertension Social History Preferred Language: Tanzanian Communication Ability: Effective Ctc Operator Required: No Beliefs That Will Affect Care: None marital status: Current Living Situation: Family current occupational status: employed Other Information That Helps Us Care for You: No Feels Safe at Home: Yes Safety Concerns: Feels Safe At This Time Smoking Status: Never smoker Do You Dip or Chew Tobacco: No ; Second Hand Exposure: No ; Tobacco Cessation Education Requested by Patient: No Hx Alcohol Use: Yes Alcohol type: hard liquor Hx Substance Use: No Review of Systems Review of Systems: ROS per HPI, all other systems reviewed and negative Physical Exam Constitutional: WD/WN, vitals as above Eyes: PERRL, conjunctivae normal, anicteric sclerae ENMT: external ear and nose normal, oropharynx normal Respiratory: normal respiratory effort, lungs clear to auscultation Cardiovascular: Rate/Rhythm: regular rhythm and + tachycardic Vessels: normal peripheral pulses Extremities: + edema (+3 edema RLE, +2 edema LLE) Gastrointestinal (Abdomen): normal bowel sounds, soft, nontender, no hepatosplenomegaly Musculoskeletal: Extremities: no cyanosis and no clubbing Some mild weakness noted throughout secondary to ALS Skin: no rashes, warm and dry Neurologic: PERRL, EOMI, accommodation nl, no face palsy, no dysarthria Psychiatric: A+Ox3, euthymic affect Results & Data Results & Data ([facility]) Vital Signs (Past 12 Hours) Vital Signs Temp Pulse Pulse Resp BP BP Pulse Ox 02/14/20 19:38 37 C 119 H 27 H 118/93 99 02/14/20 18:30 131 H 28 H 130/92 97 02/14/20 18:00 135 H 24 130/102 H 99 02/14/20 17:30 130 H 27 H 122/96 98 02/14/20 17:20 130 H 28 H 127/97 100 02/14/20 17:00 139 H 27 H 115/93 97 02/14/20 16:44 132 H 22 123/98 96 02/14/20 16:43 89 L 02/14/20 16:40 89 L 02/14/20 16:18 37.0 C 144 H 26 H 129/99 93 02/14/20 16:17 143 H 28 H 129/99 93 Laboratory Results Short CBC 02/14/20 Range/Units 16:30 WBC 6.39 (4.8-10.8) K/uL Hgb 16.6 (14.0-18.0) g/dL Hct 48.2 (42-52) % Plt Count 169 (130-400) K/uL BMP 02/14/20 16:30 Sodium 142 Potassium 3.5 Chloride 109 H Carbon Dioxide 26 BUN 11 Creatinine 0.67 Glucose 96 Calcium 8.3 L Cardiac Enzymes 02/14/20 Range/Units 16:30 Troponin I 0.069 H* (0-0.045) ng/ml Liver Function 02/14/20 Range/Units 16:30 Total Bilirubin 0.8 (0.2-1) mg/dl AST 35 (15-37) U/L ALT 71 (12-78) U/L Alkaline Phosphatase 161 H (45-117) U/L Albumin 3.7 (3.4-5.0) gm/dl Diagnostic Findings CHEST CTA IMPRESSION: 1. Extensive bilateral pulmonary embolism with a saddle embolus measuring 7 mm in diameter. Equivocal evidence of right ventricular strain 2. 7 mm left upper lobe pulmonary nodule. Code Status & VTE Plan Code Status Patient is a full code as per my discussion with him. VTE Prophylaxis Plan VTE Prophylaxis will be ordered: No Supervising Physician Co-Signing Physician Notes Attending Addendum: care coordinated with FREDDIE Landaverde please refer to her notes for full details, I agree with her notes patient seen and examined, records reviewed by myself as well on exam, patient seen sitting up in bed, comfortable, having dinner States he feels improved compared to admission, comfortable on 2 L of nasal cannula Denies active shortness of breath, chest pain, palpitations, dizziness, nausea no other symptoms VS noted and reviewed oriented x 3 , not in distress, speaks in sentences with no effort nor accessory muscle use Tachycardic, regular rhythm, no murmurs clear breath sounds bilaterally non distended, soft, nontender Positive grade 1 right lower extremity edema, erythema, warmth Positive motor strength 4/5 on all extremities WBC 6.3 Hg 16[address] angios: IMPRESSION: 1. Extensive bilateral pulmonary embolism with a saddle embolus measuring 7 mm in diameter. Equivocal evidence of right ventricular strain 2. 7 mm left upper lobe pulmonary nodule. ASSESSMENT AND PLAN Acute bilateral pulmonary embolism Risk factor: Poor mobility secondary to ALS Troponin mildly elevated Cardiogram ordered Monitor closely in the ICU Continue Heparin drip If patient decompensates, may need TPA Possible right lower extremity DVT Already on anticoagulation with heparin Doppler studies ordered other diagnoses and plan of care as per FREDDIE Antonio MD
--- NOTE | 2020-02-14 20:20 | Critical Care Consultation ---
Date of Consultation February 14, 2020 Assessment & Plan (1) Acute saddle pulmonary embolism: - Patient presented to the ED after sudden onset of shortness of breath found to be hypoxic and tachycardic. - CTA of the chest showed extensive bilateral pulmonary embolism with a saddle embolus measuring 7 mm in diameter. Equivocal evidence of right ventricular strain (would be consistent with tachycardia and mildly elevated troponin) -Currently he is maintaining sats with 4 L nasal cannula which has somewhat relieved symptomatic dyspnea, will wean as tolerated -He is started on heparin drip, however he is considered to be high risk for decompensation given size of PE. In the event of decompensation, will administer TPA. This plan has been discussed with the patient. No contraindications identified. -Denies smoking or history of pulmonary disease -Blood pressure stable without need for vasopressors at this time Continuous hemodynamic monitoring in ICU for now -Concern for culprit DVT in the right lower extremity with unilateral swelling x1 month. Will follow-up lower extremity Doppler -Follow-up echo (2) ALS (amyotrophic lateral sclerosis): Currently no acute issues, follows with neurology at [facility] Present on Admission?: Yes (3) Elevated troponin: Mildly elevated troponin 0.06, likely secondary to right heart strain secondary to PE No ST elevations on EKG Is already on heparin drip for PE, will continue to trend for now (4) GERD (gastroesophageal reflux disease): Continue PPI Present on Admission?: Yes (5) ADD (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: Continue home meds Present on Admission?: Yes (6) DVT prophylaxis: SCDs, currently on heparin drip (7) Pulmonary nodule: CTA revealed incidental finding of 7 mm left upper lobe pulmonary nodule, will likely need follow-up imaging as outpatient History of Present Illness Attending Physician: Rey Antonio MD History of Present Illness Mr. Moffett is a pleasant 44-year-old male with PMH of ALS, GERD. He is semi- independent at home but is lost some dexterity in his hands and requires a walker to ambulate. He presented to the emergency department earlier today after experiencing a sudden onset of shortness of breath while he was working from home. Prior to this event, patient had recently started having unilateral swelling in the right lower extremity without pain, and was thought to be attributed with ALS and was wearing compression stockings. On arrival to the ED he was found to be hypoxic and tachycardic, and required supplemental oxygen. He was taken for a CTA of the chest which revealed an extensive saddle pulmonary embolism with evidence of right heart strain. Blood pressure has continued to be hemodynamically stable and options of heparin drip with bolus and TPA were discussed with the patient. Patient elected for heparin drip, will administer TPA if patient begins to decompensate. Thus far he has not shown evidence of decompensation, and is currently maintaining sats on 4 L nasal cannula, not requiring vasopressors, heart rate 120s to 130s. Patient admitted to ICU for close observation overnight as he is high risk for clinical decompensation which would indicate need for emergent TPA administration. Currently patient reports mild shortness of breath which he states has improved since oxygen has been administered and he does report a very mild and dull chest pain which he thinks is associated with breathing. He denies headache, dizziness, sore throat, recent illness, fevers, palpitations, nausea or vomiting, abdominal pain. He denies history of bleeding disorders, GI bleed, or hemorrhages. He does report a recent fall from a week ago which he states he fell on his shoulder and did not hit his head. There is a small healing bruise on the left arm. He has no history of recent surgeries. Allergies Allergy/AdvReac Type Severity Reaction Status Date / Time tramadol AdvReac Unknown GI Verified 02/14/20 17:48 discomfort Home Medications Home Medications Medication Instructions Recorded Confirmed Type dextroamphetamine-amphetamine 30 mg PO BID 01/31/19 02/14/20 History escitalopram oxalate 20 mg PO QAM 01/31/19 02/14/20 History omeprazole 20 mg PO QAM 01/31/19 02/14/20 History lorazepam [Ativan] 1 mg PO DIRECTED PRN 06/17/19 02/14/20 History multivitamin 1 tab PO DAILY 07/09/19 02/14/20 History mirtazapine 15 mg PO HS 02/14/20 02/14/20 History ondansetron HCl [Zofran] 4 mg PO BID PRN 02/14/20 02/14/20 History Patient History Medical History ADD (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 ALS (amyotrophic lateral sclerosis) (Acute) GERD (gastroesophageal reflux disease) Surgical History H/O rhinoplasty History of vasectomy S/P left knee arthroscopy Family History Father Pulmonary embolism Mother Hypertension Social History Preferred Language: Serbian Communication Ability: Effective Ash Pit Worker Required: No Beliefs That Will Affect Care: None marital status: Current Living Situation: Family current occupational status: employed Other Information That Helps Us Care for You: No Feels Safe at Home: Yes Safety Concerns: Feels Safe At This Time Smoking Status: Never smoker Do You Dip or Chew Tobacco: No ; Second Hand Exposure: No ; Tobacco Cessation Education Requested by Patient: No Hx Alcohol Use: Yes Alcohol type: hard liquor Hx Substance Use: No Review of Systems Review of Systems: All systems reviewed & are unremarkable except as noted in HPI & below Physical Exam Constitutional: cooperative and comfortable Eyes: PERRL, conjunctivae normal, anicteric sclerae ENMT: external ear and nose normal, oropharynx normal Neck: trachea midline, no thyromegaly Respiratory: normal respiratory effort, lungs clear to auscultation symmetric chest movement; no labored breathing and does not use accessory muscles Mild tachypnea with respiratory rate in the low 20s Cardiovascular: RRR, no murmur, no edema Rate/Rhythm: + tachycardic Heart Sounds: normal S1 and normal S2 Vessels: no JVD Extremities: normal capillary refill Unilateral edema in the right lower extremity Gastrointestinal (Abdomen): normal bowel sounds, soft, nontender, no hepatosplenomegaly Skin: no rashes, warm and dry Neurologic: Generalized weakness and decreased dexterity and be upper and lower extremities Psychiatric: A+Ox3, euthymic affect Results & Data Results & Data ([facility]) Vital Signs (Past 12 Hours) Vital Signs Temp Pulse Pulse Resp BP BP Pulse Ox 02/14/20 19:38 37 C 119 H 27 H 118/93 99 02/14/20 18:30 131 H 28 H 130/92 97 02/14/20 18:00 135 H 24 130/102 H 99 02/14/20 17:30 130 H 27 H 122/96 98 02/14/20 17:20 130 H 28 H 127/97 100 02/14/20 17:00 139 H 27 H 115/93 97 02/14/20 16:44 132 H 22 123/98 96 02/14/20 16:43 89 L 02/14/20 16:40 89 L 02/14/20 16:18 37.0 C 144 H 26 H 129/99 93 02/14/20 16:17 143 H 28 H 129/99 93 Laboratory Results Laboratory Results - last 24 hr 02/14/20 02/14/20 02/14/20 16:30 16:30 16:30 WBC 6.39 RBC 5.19 Hgb 16.6 Hct 48.2 MCV 92.9 MCH 32.0 MCHC 34.4 RDW Std Deviation 42.8 RDW Coeff of Hussain 12.7 Plt Count 169 MPV 11.0 H Immature Gran % (Auto) 0.2 Neut % (Auto) 72.4 Lymph % (Auto) 18.9 Crosby % (Auto) 7.2 Eos % (Auto) 0.8 Baso % (Auto) 0.5 Immature Gran # (Auto) 0.01 Neut # (Auto) 4.63 Lymph # (Auto) 1.21 Crosby # (Auto) 0.46 Eos # (Auto) 0.05 Baso # (Auto) 0.03 PT 11.9 INR 1.1 APTT 25.9 PTT Ratio 0.9 Sodium 142 Potassium 3.5 Chloride 109 H Carbon Dioxide 26 Anion Gap 7.0 BUN 11 Creatinine 0.67 Est Cr Clr Drug Dosing 161.2 Est GFR ( Amer) 135.4 Est GFR (Non-Af Amer) 116.9 BUN/Creatinine Ratio 16.4 Glucose 96 POC Glucose Calcium 8.3 L Total Bilirubin 0.8 AST 35 ALT 71 Alkaline Phosphatase 161 H Troponin I 0.069 H* Total Protein 7.6 Albumin 3.7 Globulin 3.9 Albumin/Globulin Ratio 0.9 Lipase 112 Nasal Screen MRSA (PCR) 02/14/20 02/14/20 19:52 19:58 WBC RBC Hgb Hct MCV MCH MCHC RDW Std Deviation RDW Coeff of Hussain Plt Count MPV Immature Gran % (Auto) Neut % (Auto) Lymph % (Auto) Crosby % (Auto) Eos % (Auto) Baso % (Auto) Immature Gran # (Auto) Neut # (Auto) Lymph # (Auto) Crosby # (Auto) Eos # (Auto) Baso # (Auto) PT INR APTT PTT Ratio Sodium Potassium Chloride Carbon Dioxide Anion Gap BUN Creatinine Est Cr Clr Drug Dosing Est GFR ( Amer) Est GFR (Non-Af Amer) BUN/Creatinine Ratio Glucose POC Glucose 109 H Calcium Total Bilirubin AST ALT Alkaline Phosphatase Troponin I Total Protein Albumin Globulin Albumin/Globulin Ratio Lipase Nasal Screen MRSA (PCR) [place] [address] Inpt Consult Level 5 Patient Type New History Comprehensive Exam Comprehensive Diagnoses Acute saddle pulmonary embolism I26.92 ALS (amyotrophic lateral sclerosis) G12.21 Elevated troponin R79.89 GERD (gastroesophageal reflux disease) K21.9 ADD (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 F98.8 DVT prophylaxis Z29.9 Pulmonary nodule R91.1
[2020-02-14] MEDS ORDERED: LORazepam 0.5 MG TAB PO STA (21:27)
[2020-02-14] MEDS: MIRTAZAPINE TAB 15 MG TAB PO SCH (21:27)
[2020-02-15 00:54] LABS: Partial Thromboplastin Ratio 2.6
[2020-02-15 00:57] LABS: Partial Thromboplastin Time 73.1 Seconds (21.0-31.0)
[2020-02-15 04:50] LABS: Hemoglobin 15.5 g/dL (14.0-18.0); Mean Corpuscular Hemoglobin 31.6 pg (25-34); Mean Corpuscular Hgb Conc 33.7 g/dL (32-36); Mean Corpuscular Volume 93.7 fL (80-100); Mean Platelet Volume 11.3 fL (7.4-10.4); Platelet Count 173 K/uL (130-400); RDW Coefficient of Variation 12.9 % (11.5-14.5); RDW Standard Deviation 43.6 fL (36.4-46.3); Red Blood Count 4.91 M/uL (4.7-6.1); White Blood Count 7.97 K/uL (4.8-10.8)
[2020-02-15 05:10] LABS: BUN Creatinine Ratio 13.4 (10-20); Calcium 8.7 mg/dl (8.5-10.1); Creatinine Clr Calc Pharmacy 143.4 ml/min; Est GFR (African American) 127.2; Est GFR (Non-African American) 109.8; Potassium 3.6 mmol/L (3.5-5.1)
[2020-02-15 05:28] LABS: Troponin I 0.588 ng/ml (0-0.045)
--- NOTE | 2020-02-15 06:43 | Electrocardiogram Report ---
Test Reason : Blood Pressure : / mmHG Vent. Rate : 139 BPM Atrial Rate : 139 BPM P-R Int : 134 ms QRS Dur : 086 ms QT Int : 286 ms P-R-T Axes : 065 060 079 degrees QTc Int : 435 ms Poor data quality, interpretation may be adversely affected Sinus tachycardia Nonspecific ST and T wave abnormality Abnormal ECG When compared with ECG of 17-NOV-2010 21:09, Nonspecific T wave abnormality, improved in Anterolateral leads Confirmed by Rakesh Morris ([id number]) on 02/15/2020 6:42:24 AM Referred By: REFERRED SELF Confirmed By:Rakesh Morris
--- NOTE | 2020-02-15 07:15 | Ultrasound Report ---
US venous doppler LE BI CLINICAL HISTORY: Leg swelling COMPARISON STUDY: No previous studies for comparison. FINDINGS: Grayscale, color-flow, Doppler spectral waveform analysis was performed On the left, the veins were fully compressible from the groin to the popliteal fossa. There is normal augmentation. There is normal color-flow. The calf veins on the left. On the right, the common femoral superficial femoral veins appear patent. There is thrombus within th e right popliteal vein extending into the trifurcation veins of the calf. Note is also made of thromb us within perforating veins within the right popliteal fossa. IMPRESSION: 1. Acute right lower extremity DVT 2. No evidence of left lower extremity DVT ACT 112: Negative or not required by law. Electronically signed by: Beau Hunt M.D. 02/15/2020 7:13 AM
[2020-02-15 07:30] LABS: Partial Thromboplastin Ratio 2.4
[2020-02-15 07:31] LABS: Partial Thromboplastin Time 65.8 Seconds (21.0-31.0)
[2020-02-15] MEDS: MULTIVITAMIN TAB PO SCH (07:54)
[2020-02-15] MEDS: ESCITALOPRAM OXALATE 20 MG TAB PO SCH (07:54)
[2020-02-15] MEDS: PANTOprazole 40 MG TAB PO SCH (07:54)
[2020-02-15] MEDS: AMPHETAMINE ASP/SULF/DEXTRAMPH 10 MG TAB PO SCH ×2 (07:59→12:54)
--- NOTE | 2020-02-15 09:21 | Critical Care Progress Note ---
Date of Service February 15, 2020 Assessment & Plan (1) Acute saddle pulmonary embolism: Impression: 44-year-old male with history of ALS admitted with submassive PE with borderline hemodynamics. Is admitted to ICU for observation. Options for lytics were discussed with the patient initially however he elected to proceed with heparin. He is done well with improvement in his hemodynamics over night. Recommendations: 1. Submassive PE with right heart strain: Heart rate oxygenation and clinical status are improving with heparin. Continue heparin. He will need heparin for at least 5 days. Will check formal echo cardiogram. Troponin decreasing. May require follow-up echocardiogram in 3 months if significant pulmonary hypertension is identified. Given the idiopathic nature of his clot and large clot burden, would recommend lifelong anticoagulation unless there is a significant contraindication. No indication for testing for inherited thrombophilia as it would be unlikely to alter management. Would continue telemetry. If the patient's condition should worsen, salvage thrombolysis could be considered. 2. Lower extremity DVT: Should be treated by heparin. No sign of phlegmasia cerulea dolens. No indication for IVC interruption. 3. Left upper lobe pulmonary nodule. The patient will require a follow-up CT scan in 6 to 12 months. 4. ALS: Continue expectant management. Patient appears to be hemodynamically stable with his PE. At this point time he appears stable to transfer out of the ICU to the floor on telemetry. He was advised to monitor for signs of increasing shortness of breath, chest pain, palpitations, syncope, or presyncope and should notify us immediately. Will continue to follow for pulmonary issues. (2) Cor pulmonale, acute: (3) Acute hypoxemic respiratory failure: Admission and Anticipated Discharge Date Admission Date: February 14, 2020 Subjective Patient states his breathing is better. He is not experience any palpitations or chest pain or chest pressure. No lower extremity pain or swelling. He is on 4 L of oxygen and feels that his breathing is comfortable currently. No hemoptysis. Review of Systems Review of Systems: Please refer to admission H&P. No additions or deletions Physical Exam Constitutional: WD/WN, vitals as above Neck: trachea midline, no thyromegaly Respiratory: normal respiratory effort, lungs clear to auscultation Cardiovascular: Rate/Rhythm: regular rate and + tachycardic Heart Sounds: normal S1 and normal S2 No accentuated S2 or S3. No RV heave or tap Gastrointestinal (Abdomen): normal bowel sounds, soft, nontender, no hepatosplenomegaly Musculoskeletal: Extremities: extremities normal to inspection Skin: no rashes, warm and dry Neurologic: Nonfocal exam Lymphatic: no cervical lymphadenopathy Results & Data Results & Data ([facility]) Vital Signs (Past 12 Hours) Vital Signs Temp Pulse Resp BP Pulse Ox 02/15/20 06:00 93 H 17 98 02/15/20 05:27 94 H 16 93/75 L 97 02/15/20 05:00 96 H 22 97 02/15/20 04:27 96 H 15 107/77 97 02/15/20 04:00 36.6 C 96 H 17 98 02/15/20 03:27 104 H 17 108/79 97 02/15/20 03:00 98 H 17 98 02/15/20 02:27 102 H 15 108/81 98 02/15/20 02:00 104 H 18 97 02/15/20 01:27 104 H 17 97/74 L 96 02/15/20 01:00 111 H 19 96 02/15/20 00:27 109 H 15 115/88 97 02/15/20 00:00 107 H 17 96 02/14/20 23:27 126 H 24 119/93 96 02/14/20 23:00 112 H 25 H 99 02/14/20 22:58 112 H 02/14/20 22:56 37.5 C 02/14/20 22:27 111 H 17 106/85 97 02/14/20 22:00 114 H 19 99 02/14/20 21:28 124 H 20 118/87 97 Laboratory Results 02/15/20 04:21 02/15/20 04:21 Diagnostic Findings No new films Coding Level of Care Code 79880 Subseq Hosp Care Lvl 3 Diagnoses Acute saddle pulmonary embolism I26.92 Cor pulmonale, acute I26.09 Acute hypoxemic respiratory failure J96.01
[2020-02-15] MEDS: LORazepam 1 MG TAB PO PRN ×2 (13:45→22:35)
[2020-02-15] MEDS: HEPARIN SODIUM/DEXTROSE 25,000 UNITS/500 ML BAG IV SCH (13:45)
--- NOTE | 2020-02-15 14:56 | Hospitalist Progress Note ---
Date of Service February 15, 2020 Assessment & Plan (1) Acute saddle pulmonary embolism: (2) Elevated troponin: Acute saddle pulmonary embolism Acute right lower extremity DVT CTA:Extensive bilateral pulmonary embolism with a saddle embolus measuring 7 mm in diameter. Equivocal evidence of right ventricular strain. 7 mm left upper lobe pulmonary nodule. Venous Doppler: Acute right lower extremity DVT. No evidence of left lower extremity DVT Head CT:No acute intracranial abnormality. Mild right posterior scalp swelling. ECHO: The left ventricle is normal in size. There is normal left ventricular wall thickness. Flattened septum is consistent with RV pressure/volume overload. EF 50 to 55%. The right ventricle is moderate to severely dilated. The inferior vena cava is moderately dilated. The right ventricle systolic pressure is elevated at 40 to 50 mmHg. Hypercoagulable work-up as outpatient Continue IV heparin Monitor for hemodynamic changes Supplemental oxygen as needed Appreciate critical care input Likely would require lifelong anticoagulation Monitor for any bleeding issues Needs repeat echo in 3 months Urinary retention Bladder scan PRN We will consider Jean Baptiste placement if requires recurrent straight cath (3) ALS (amyotrophic lateral sclerosis): Follows with neurology at [facility] Stable (4) ADD (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: Continue Adderall (5) GERD (gastroesophageal reflux disease): Continue PPI (6) Pulmonary nodule: CT as above Will need repeat CT chest in 6 to 12 months (7) DVT prophylaxis: On IV heparin drip Admission and Anticipated Discharge Date Admission Date: February 14, 2020 Subjective Patient is seen and examined at bedside Has mild pleuritic chest discomfort Tachycardic on monitor Had urinary retention Denies any leg pain Also denies any shortness of breath, dizziness, nausea, abdominal pain Offers no other complaints Review of Systems Review of Systems: All systems reviewed & are unremarkable except as noted in HPI & below Physical Exam Physical Exam: Physical Exam: Vitals signs as noted above General Appearance:Moderately built and nourished, no apparent distress Head: normocephalic, Atraumatic Eyes: normal inspection, EOMI Neck: supple, Trachea midline Respiratory/Chest: Normal breath sounds, CTA, No accessory muscle use Cardiovascular: S1, S2, No murmur, +Tachycardia Abdomen/GI:Soft, Non tender, Bowel sounds present Extremities/Musculoskelatal:normal inspection, no edema Neurologic/Psych:AAOX3, R>L Extremity weakness due to ALS, movies all extremities Skin: normal color, warm Results & Data Results & Data ([facility]) Vital Signs (Past 12 Hours) Vital Signs Temp Pulse Resp BP Pulse Ox 02/15/20 09:00 111 H 20 98 02/15/20 08:27 111 H 18 113/80 96 02/15/20 08:00 112 H 27 H 96 02/15/20 07:27 37 C 101 H 18 102/79 99 02/15/20 07:00 98 H 18 100 02/15/20 06:00 93 H 17 98 02/15/20 05:27 94 H 16 93/75 L 97 02/15/20 05:00 96 H 22 97 02/15/20 04:27 96 H 15 107/77 97 02/15/20 04:00 36.6 C 96 H 17 98 02/15/20 03:27 104 H 17 108/79 97 02/15/20 03:00 98 H 17 98 Laboratory Results Short CBC 02/14/20 02/15/20 Range/Units 16:30 04:21 WBC 6.39 7.97 (4.8-10.8) K/uL Hgb 16.6 15.5 (14.0-18.0) g/dL Hct 48.2 46.0 (42-52) % Plt Count 169 173 (130-400) K/uL BMP 02/14/20 02/15/20 16:30 04:21 Sodium 142 144 Potassium 3.5 3.6 Chloride 109 H 108 H Carbon Dioxide 26 31 BUN 11 11 Creatinine 0.67 0.78 Glucose 96 111 H Calcium 8.3 L 8.7 Cardiac Enzymes 02/14/20 02/14/20 02/15/20 Range/Units 16:30 21:43 04:21 Troponin I 0.069 H* 1.000 H* 0.588 H* (0-0.045) ng/ml Liver Function 02/14/20 Range/Units 16:30 Total Bilirubin 0.8 (0.2-1) mg/dl AST 35 (15-37) U/L ALT 71 (12-78) U/L Alkaline Phosphatase 161 H (45-117) U/L Albumin 3.7 (3.4-5.0) gm/dl
[2020-02-15] MEDS: MIRTAZAPINE TAB 15 MG TAB PO SCH (20:10)
[2020-02-15] MEDS: ACETAMINOPHEN 325 MG TAB PO PRN (20:11)
[2020-02-16 04:31] LABS: Hematocrit (blood only) 44.4 % (42-52); Hemoglobin 14.9 g/dL (14.0-18.0); Mean Corpuscular Hemoglobin 31.5 pg (25-34); Mean Corpuscular Hgb Conc 33.6 g/dL (32-36); Mean Corpuscular Volume 93.9 fL (80-100); Platelet Count 168 K/uL (130-400); RDW Coefficient of Variation 12.8 % (11.5-14.5); RDW Standard Deviation 44.1 fL (36.4-46.3); Red Blood Count 4.73 M/uL (4.7-6.1); White Blood Count 6.46 K/uL (4.8-10.8)
[2020-02-16 04:50] LABS: BUN Creatinine Ratio 13.2 (10-20); Calcium 8.4 mg/dl (8.5-10.1); Creatinine Clr Calc Pharmacy 170.3 ml/min; Est GFR (African American) 136.3; Est GFR (Non-African American) 117.6; Potassium 3.8 mmol/L (3.5-5.1)
[2020-02-16 05:24] LABS: Partial Thromboplastin Ratio 2.2
[2020-02-16 05:45] LABS: Partial Thromboplastin Time 61.4 Seconds (21.0-31.0)
[2020-02-16] MEDS: AMPHETAMINE ASP/SULF/DEXTRAMPH 10 MG TAB PO SCH ×2 (07:53→13:04)
[2020-02-16] MEDS: ESCITALOPRAM OXALATE 20 MG TAB PO SCH (07:53)
[2020-02-16] MEDS: MULTIVITAMIN TAB PO SCH (07:53)
[2020-02-16] MEDS: PANTOprazole 40 MG TAB PO SCH (07:53)
[2020-02-16] MEDS: HEPARIN SODIUM/DEXTROSE 25,000 UNITS/500 ML BAG IV SCH (09:45)
--- NOTE | 2020-02-16 10:07 | Critical Care Progress Note ---
Date of Service February 16, 2020 Assessment & Plan (1) Acute saddle pulmonary embolism: Impression: 44-year-old male with history of ALS admitted with submassive PE with borderline hemodynamics. Is admitted to ICU for observation. Options for lytics were discussed with the patient initially however he elected to proceed with heparin. He is done well with improvement in his hemodynamics over night. Recommendations: 1. Submassive PE with right heart strain: Heart rate oxygenation and clinical status are improving with heparin. Continue heparin. He will need heparin for at least 5 days. Can start oral anticoagulation in the next 24 to 48 hours if his hematuria clears. Could use novel oral anticoagulant or Coumadin. If Coumadin is selected, will require 24 hours overlap with INR greater than or equal to 2 prior to discontinuation of Coumadin. Given the findings on his echo, the patient will require follow-up echocardiogram in 3 months. Given the idiopathic nature of his clot and large clot burden, would recommend lifelong anticoagulation unless there is a significant contraindication. No indication for testing for inherited thrombophilia as it would be unlikely to alter management. Would continue telemetry. If the patient's condition should worsen, salvage thrombolysis could be considered. 2. Lower extremity DVT: Should be treated by heparin. No sign of phlegmasia cerulea dolens. No indication for IVC interruption. 3. Left upper lobe pulmonary nodule. The patient will require a follow-up CT scan in 6 to 12 months. 4. ALS: Continue expectant management. 5. Urinary retention now with hematuria post Jean Baptiste placement: This will be complicated by a need for longstanding anticoagulation. Defer to primary service who ordered Jean Baptiste placement 6. PT OT consultations and out of bed as tolerated. Patient appears to be hemodynamically stable with his PE. Okay to transfer out of the ICU to the floor on telemetry. He was advised to monitor for signs of increasing shortness of breath, chest pain, palpitations, syncope, or presyncope and should notify us immediately. Will continue to follow for pulmonary issues. (2) Cor pulmonale, acute: (3) Acute hypoxemic respiratory failure: Admission and Anticipated Discharge Date Admission Date: February 14, 2020 Subjective Patient is awake alert and conversant. No chest pain or palpitations. His heart rate is decreased down below 100. He remains bedbound. He would like to get out of bed. He is experiencing significant hematuria. He had a Jean Baptiste catheter placed due to him feeling that he could not void. Review of Systems Review of Systems: Unchanged from prior Physical Exam Constitutional: WD/WN, vitals as above Neck: trachea midline, no thyromegaly Respiratory: normal respiratory effort, lungs clear to auscultation Cardiovascular: Rate/Rhythm: regular rate and + tachycardic Heart Sounds: normal S1 and normal S2 Gastrointestinal (Abdomen): normal bowel sounds, soft, nontender, no hepatosplenomegaly Musculoskeletal: Extremities: extremities normal to inspection Skin: no rashes, warm and dry Lymphatic: no cervical lymphadenopathy Results & Data Results & Data ([facility]) Vital Signs (Past 12 Hours) Vital Signs Temp Pulse Resp BP Pulse Ox 02/16/20 08:30 111 H 20 98 02/16/20 08:28 102 H 14 102/72 98 02/16/20 08:00 36.8 C 106 H 20 97 02/16/20 07:30 108 H 18 96 02/16/20 07:28 104 H 22 103/82 96 02/16/20 07:00 76 13 98 02/16/20 06:00 65 14 97 02/16/20 05:30 84 16 109/68 98 02/16/20 05:00 79 15 99 02/16/20 04:30 75 15 94/72 L 98 02/16/20 04:00 37 C 70 20 98 02/16/20 03:30 79 13 101/71 96 02/16/20 03:00 80 15 97 02/16/20 02:30 83 18 89/65 L 96 02/16/20 02:00 81 16 98 02/16/20 01:30 81 18 85/64 L 98 02/16/20 01:00 88 15 97 02/16/20 00:29 89 17 90/63 L 98 02/16/20 00:28 90 19 90/63 L 98 02/16/20 00:00 36.9 C 93 H 16 97 02/15/20 23:30 92 H 16 90/57 L 97 02/15/20 23:00 93 H 17 96 02/15/20 22:30 89 16 95/6 L 96 Laboratory Results 02/16/20 04:08 02/16/20 04:08 Diagnostic Findings Echo: 02/15/2020. Left ventricular normal size and function. Flattened septum consistent with RV volume pressure overload. EF of 50 to 55%. Dilatation of the right ventricle with right ventricular systolic pressure estimated at 40-50 Coding Level of Care Code 56317 Subseq Hosp Care Lvl 3 Diagnoses Acute saddle pulmonary embolism I26.92 Cor pulmonale, acute I26.09 Acute hypoxemic respiratory failure J96.01
[2020-02-16] MEDS: LORazepam 1 MG TAB PO PRN ×2 (13:30→21:19)
--- NOTE | 2020-02-16 13:55 | Hospitalist Progress Note ---
Date of Service February 16, 2020 Assessment & Plan (1) Acute saddle pulmonary embolism: (2) Elevated troponin: Acute saddle pulmonary embolism Acute right lower extremity DVT CTA:Extensive bilateral pulmonary embolism with a saddle embolus measuring 7 mm in diameter. Equivocal evidence of right ventricular strain. 7 mm left upper lobe pulmonary nodule. Venous Doppler: Acute right lower extremity DVT. No evidence of left lower extremity DVT Head CT:No acute intracranial abnormality. Mild right posterior scalp swelling. ECHO: The left ventricle is normal in size. There is normal left ventricular wall thickness. Flattened septum is consistent with RV pressure/volume overload. EF 50 to 55%. The right ventricle is moderate to severely dilated. The inferior vena cava is moderately dilated. The right ventricle systolic pressure is elevated at 40 to 50 mmHg. Hypercoagulable work-up as outpatient Continue IV heparin Monitor for hemodynamic changes Supplemental oxygen as needed Appreciate critical care input Likely would require lifelong anticoagulation Needs repeat echo in 3 months Consider starting on oral anticoagulation next 24 to 48 hours if no recurrence of hematuria Urinary retention Hematuria Likely due to traumatic catheter monitor H&H Consider Urology eval as needed No gross hematuria currently (3) ALS (amyotrophic lateral sclerosis): Follows with neurology at [facility] Stable (4) ADD (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: Continue Adderall (5) GERD (gastroesophageal reflux disease): Continue PPI (6) Pulmonary nodule: CT as above Will need repeat CT chest in 6 to 12 months (7) DVT prophylaxis: On IV heparin drip Admission and Anticipated Discharge Date Admission Date: February 14, 2020 Subjective Patient is seen and examined at bedside Had hematuria overnight Tachycardia better Pleuritic chest discomfort improved Denies any leg pain Also denies any shortness of breath, dizziness, nausea, abdominal pain Offers no other complaints on IV heparin Review of Systems Review of Systems: All systems reviewed & are unremarkable except as noted in HPI & below Physical Exam Physical Exam: Physical Exam: Vitals signs as noted above General Appearance:Moderately built and nourished, no apparent distress Head: normocephalic, Atraumatic Eyes: normal inspection, EOMI Neck: supple, Trachea midline Respiratory/Chest: Normal breath sounds, CTA, No accessory muscle use Cardiovascular: S1, S2, No murmur, +Tachycardia Abdomen/GI:Soft, Non tender, Bowel sounds present Extremities/Musculoskelatal:normal inspection, no edema Neurologic/Psych:AAOX3, R>L Extremity weakness due to ALS, moves all extremities Skin: normal color, warm Results & Data Results & Data ([facility]) Vital Signs (Past 12 Hours) Vital Signs Temp Pulse Resp BP Pulse Ox 02/16/20 12:28 85 13 89/66 L 94 02/16/20 12:00 36.8 C 93 H 15 93 02/16/20 11:28 100 H 21 106/78 94 02/16/20 10:28 91 H 19 99/73 L 97 02/16/20 10:00 94 H 18 96 02/16/20 09:28 109 H 17 116/100 97 02/16/20 08:30 111 H 20 98 02/16/20 08:28 102 H 14 102/72 98 02/16/20 08:00 36.8 C 106 H 20 97 02/16/20 07:30 108 H 18 96 02/16/20 07:28 104 H 22 103/82 96 02/16/20 07:00 76 13 98 02/16/20 06:00 65 14 97 02/16/20 05:30 84 16 109/68 98 02/16/20 05:00 79 15 99 02/16/20 04:30 75 15 94/72 L 98 02/16/20 04:00 37 C 70 20 98 02/16/20 03:30 79 13 101/71 96 02/16/20 03:00 80 15 97 02/16/20 02:30 83 18 89/65 L 96 02/16/20 02:00 81 16 98 Laboratory Results Short CBC 02/16/20 Range/Units 04:08 WBC 6.46 (4.8-10.8) K/uL Hgb 14.9 (14.0-18.0) g/dL Hct 44.4 (42-52) % Plt Count 168 (130-400) K/uL BMP 02/16/20 04:08 Sodium 141 Potassium 3.8 Chloride 106 Carbon Dioxide 30 BUN 9 Creatinine 0.66 Glucose 102 H Calcium 8.4 L
[2020-02-16 16:19] LABS: Hematocrit (blood only) 42.7 % (42-52); Hemoglobin 14.6 g/dL (14.0-18.0)
[2020-02-16] MEDS: ACETAMINOPHEN 325 MG TAB PO PRN (19:39)
[2020-02-16] MEDS: MIRTAZAPINE TAB 15 MG TAB PO SCH (21:19)
[2020-02-17] MEDS: HEPARIN SODIUM/DEXTROSE 25,000 UNITS/500 ML BAG IV SCH (04:16)
[2020-02-17 04:51] LABS: Hematocrit (blood only) 46.4 % (42-52); Hemoglobin 15.5 g/dL (14.0-18.0); Mean Corpuscular Hemoglobin 31.4 pg (25-34); Mean Corpuscular Hgb Conc 33.4 g/dL (32-36); Mean Corpuscular Volume 94.1 fL (80-100); Mean Platelet Volume 11.2 fL (7.4-10.4); Platelet Count 183 K/uL (130-400); RDW Coefficient of Variation 12.7 % (11.5-14.5); RDW Standard Deviation 43.4 fL (36.4-46.3); Red Blood Count 4.93 M/uL (4.7-6.1); White Blood Count 5.96 K/uL (4.8-10.8)
[2020-02-17 05:09] LABS: BUN Creatinine Ratio 13.6 (10-20); Calcium 8.7 mg/dl (8.5-10.1); Creatinine Clr Calc Pharmacy 158.5 ml/min; Est GFR (Non-African American) 114.8; Potassium 3.8 mmol/L (3.5-5.1)
[2020-02-17 05:16] LABS: Partial Thromboplastin Ratio 1.8
[2020-02-17 05:25] LABS: Partial Thromboplastin Time 50.7 Seconds (21.0-31.0)
[2020-02-17] MEDS: AMPHETAMINE ASP/SULF/DEXTRAMPH 10 MG TAB PO SCH ×2 (08:05→11:55)
[2020-02-17] MEDS: PANTOprazole 40 MG TAB PO SCH (08:05)
[2020-02-17] MEDS: MULTIVITAMIN TAB PO SCH (08:05)
[2020-02-17] MEDS: ESCITALOPRAM OXALATE 20 MG TAB PO SCH (08:05)
--- NOTE | 2020-02-17 14:32 | Pulmonology Progress Note ---
Date of Service February 17, 2020 Assessment & Plan (1) Acute saddle pulmonary embolism: Impression: 44-year-old male with history of ALS admitted with submassive PE with borderline hemodynamics. Is admitted to ICU for observation. Options for lytics were discussed with the patient initially however he elected to proceed with heparin. He is done well with improvement in his hemodynamics overnight. Recommendations: 1. Submassive PE with right heart strain: Continue anticoagulation with he pallavi. Would recommend switching to a novel anticoagulant upon discharge. Will likely need a follow-up echo in 2 to 3 months to follow-up on the acute cor pulmonale. Will need pulmonary follow-up. 2. Lower extremity DVT: Continue anticoagulation as above. 3. Left upper lobe pulmonary nodule. The patient will require a follow-up CT scan in 6 to 12 months. 4. ALS: Continue expectant management. Pulmonary will sign off. Please call us with questions. Thank you for the consult. (2) Cor pulmonale, acute: (3) Acute hypoxemic respiratory failure: Admission and Anticipated Discharge Date Admission Date: February 14, 2020 Subjective Patient denies any chest pain, fevers, chills, night sweats or shortness of breath. Saturating well on room air. Physical Exam Constitutional: WD/WN, vitals as above Eyes: PERRL, conjunctivae normal, anicteric sclerae Neck: trachea midline, no thyromegaly Respiratory: normal respiratory effort, lungs clear to auscultation Cardiovascular: Rate/Rhythm: regular rate and regular rhythm Heart Sounds: normal S1 and normal S2 Gastrointestinal (Abdomen): normal bowel sounds, soft, nontender, no hepatosplenomegaly Musculoskeletal: Extremities: extremities normal to inspection Skin: no rashes, warm and dry Lymphatic: no cervical lymphadenopathy Results & Data Results & Data ([facility]) Vital Signs (Past 12 Hours) Vital Signs Temp Pulse Pulse Resp BP BP Pulse Ox 02/17/20 11:00 99.0 F 87 21 98/78 L 98 02/17/20 08:14 99.0 F 98 H 20 110/78 100 02/17/20 08:00 70 02/17/20 04:09 98.2 F 91 H 18 103/68 96 PG Care Time/CCT Total # of Minutes Spent Total Time Spent with Patient: Total time spent is greater than 50% in coor dination of care (as documented) at patient's floor/unit and/or counseling patient: Coding Level of Care Code 03711 Subseq Hosp Care Lvl 2 Diagnoses Acute saddle pulmonary embolism I26.92 Cor pulmonale, acute I26.09 Acute hypoxemic respiratory failure J96.01
[2020-02-17] MEDS ORDERED: LOPERAMIDE HCL 2 MG CAP PO PRN (16:41)
--- NOTE | 2020-02-17 19:20 | Hospitalist Progress Note ---
Date of Service February 17, 2020 Assessment & Plan (1) Acute saddle pulmonary embolism: (2) Elevated troponin: Acute saddle pulmonary embolism Acute right lower extremity DVT CTA:Extensive bilateral pulmonary embolism with a saddle embolus measuring 7 mm in diameter. Equivocal evidence of right ventricular strain. 7 mm left upper lobe pulmonary nodule. Venous Doppler: Acute right lower extremity DVT. No evidence of left lower extremity DVT Head CT:No acute intracranial abnormality. Mild right posterior scalp swelling. ECHO: The left ventricle is normal in size. There is normal left ventricular wall thickness. Flattened septum is consistent with RV pressure/volume overload. EF 50 to 55%. The right ventricle is moderate to severely dilated. The inferior vena cava is moderately dilated. The right ventricle systolic pressure is elevated at 40 to 50 mmHg. Hypercoagulable work-up as outpatient Continue IV heparin Monitor for hemodynamic changes Appreciate critical care input Likely would require lifelong anticoagulation Needs repeat echo in 3 months Saturating well on room air Pleuritic chest discomfort resolved Patient prefers to be switched to Eliquis as able Plan to switch to oral anticoagulants as able Urinary retention Hematuria Likely due to traumatic catheter monitor H&H Consider Urology eval as needed hematuria resolving Hb stable (3) ALS (amyotrophic lateral sclerosis): Follows with neurology at [facility] Stable (4) ADD (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: Continue Adderall (5) GERD (gastroesophageal reflux disease): Continue PPI (6) Pulmonary nodule: CT as above Will need repeat CT chest in 6 to 12 months (7) DVT prophylaxis: On IV heparin drip Admission and Anticipated Discharge Date Admission Date: February 14, 2020 Subjective Patient is seen and examined at bedside Hematuria resolving Hb stable Saturating well on room air No new complaints Pleuritic chest discomfort resolved Reports diarrhea from IBS (says usual for him) Denies chest pain, SOB, dizziness, nausea, abdominal pain on IV heparin Review of Systems Review of Systems: All systems reviewed & are unremarkable except as noted in HPI & below Physical Exam Physical Exam: Physical Exam: Vitals signs as noted above General Appearance:Moderately built and nourished, no apparent distress Head: normocephalic, Atraumatic Eyes: normal inspection, EOMI Neck: supple, Trachea midline Respiratory/Chest: Normal breath sounds, CTA, No accessory muscle use Cardiovascular: S1, S2, No murmur, +Tachycardia Abdomen/GI:Soft, Non tender, Bowel sounds present Extremities/Musculoskelatal:normal inspection, no edema Neurologic/Psych:AAOX3, R>L Extremity weakness due to ALS, moves all extremities Skin: normal color, warm Results & Data Results & Data ([facility]) Vital Signs (Past 12 Hours) Vital Signs Temp Pulse Pulse Resp BP Pulse Ox 02/17/20 16:35 37.1 C 95 H 22 120/74 97 02/17/20 16:00 86 02/17/20 11:00 37.2 C 87 21 98/78 L 98 02/17/20 08:14 37.2 C 98 H 20 110/78 100 02/17/20 08:00 70 Laboratory Results Short CBC 02/17/20 Range/Units 04:08 WBC 5.96 (4.8-10.8) K/uL Hgb 15.5 (14.0-18.0) g/dL Hct 46.4 (42-52) % Plt Count 183 (130-400) K/uL BMP 02/17/20 04:08 Sodium 141 Potassium 3.8 Chloride 107 Carbon Dioxide 30 BUN 9 Creatinine 0.70 Glucose 93 Calcium 8.7
[2020-02-17] MEDS: LORazepam 1 MG TAB PO PRN (21:38)
[2020-02-17] MEDS: MIRTAZAPINE TAB 15 MG TAB PO SCH (21:38)
[2020-02-18] MEDS: HEPARIN SODIUM/DEXTROSE 25,000 UNITS/500 ML BAG IV SCH ×2 (00:01→10:52)
[2020-02-18 04:54] LABS: Hematocrit (blood only) 45.4 % (42-52); Hemoglobin 15.6 g/dL (14.0-18.0); Mean Corpuscular Hemoglobin 31.5 pg (25-34); Mean Corpuscular Hgb Conc 34.4 g/dL (32-36); Mean Corpuscular Volume 91.5 fL (80-100); Platelet Count 202 K/uL (130-400); RDW Coefficient of Variation 12.6 % (11.5-14.5); RDW Standard Deviation 41.8 fL (36.4-46.3); Red Blood Count 4.96 M/uL (4.7-6.1); White Blood Count 6.29 K/uL (4.8-10.8)
[2020-02-18 05:01] LABS: Partial Thromboplastin Ratio 1.8
[2020-02-18] MEDS ORDERED: KETOROLAC TROMETHAMINE 15 MG/ML VIAL IV PRN (08:58)
[2020-02-18] MEDS: AMPHETAMINE ASP/SULF/DEXTRAMPH 10 MG TAB PO SCH ×2 (09:14→10:55)
[2020-02-18] MEDS: MoRPHine SULFATE 2 MG/ML CARP IV PRN ×3 (09:14→22:25)
[2020-02-18] MEDS: PANTOprazole 40 MG TAB PO SCH (10:53)
[2020-02-18] MEDS: MULTIVITAMIN TAB PO SCH (10:53)
[2020-02-18] MEDS: ESCITALOPRAM OXALATE 20 MG TAB PO SCH (10:53)
[2020-02-18] MEDS: ACETAMINOPHEN 325 MG TAB PO PRN ×2 (11:07→20:46)
[2020-02-18] MEDS: LORazepam 1 MG TAB PO PRN (16:27)
--- NOTE | 2020-02-18 16:58 | Electrocardiogram Report ---
Test Reason : Blood Pressure : / mmHG Vent. Rate : 098 BPM Atrial Rate : 098 BPM P-R Int : 140 ms QRS Dur : 088 ms QT Int : 370 ms P-R-T Axes : 055 033 055 degrees QTc Int : 472 ms Normal sinus rhythm Normal ECG When compared with ECG of 14-FEB-2020 16:18, HR has decreased by 42 bpm Confirmed by Rakesh Morris [id number] on 02/18/2020 4:58:19 PM Referred By: REFERRED SELF Confirmed By:Rakesh Morris
--- NOTE | 2020-02-18 17:20 | Hospitalist Progress Note ---
Date of Service February 18, 2020 Assessment & Plan (1) Acute saddle pulmonary embolism: (2) Elevated troponin: Acute saddle pulmonary embolism Acute right lower extremity DVT CTA:Extensive bilateral pulmonary embolism with a saddle embolus measuring 7 mm in diameter. Equivocal evidence of right ventricular strain. 7 mm left upper lobe pulmonary nodule. Venous Doppler: Acute right lower extremity DVT. No evidence of left lower extremity DVT Head CT:No acute intracranial abnormality. Mild right posterior scalp swelling. ECHO: The left ventricle is normal in size. There is normal left ventricular wall thickness. Flattened septum is consistent with RV pressure/volume overload. EF 50 to 55%. The right ventricle is moderate to severely dilated. The inferior vena cava is moderately dilated. The right ventricle systolic pressure is elevated at 40 to 50 mmHg. Hypercoagulable work-up as outpatient Continue IV heparin Monitor for hemodynamic changes Appreciate critical care input Likely would require lifelong anticoagulation Needs repeat echo in 3 months Saturating well on room air Pleuritic chest intermittently Plan to transition to Eliquis tomorrow if no recurrence of hematuria Urinary retention Hematuria Likely due to traumatic catheter monitor H&H Consider Urology eval as needed hematuria resolved Hb stable Voiding trial tomorrow (3) ALS (amyotrophic lateral sclerosis): Follows with neurology at [facility] Stable (4) ADD (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: Continue Adderall (5) GERD (gastroesophageal reflux disease): Continue PPI (6) Pulmonary nodule: CT as above Will need repeat CT chest in 6 to 12 months (7) DVT prophylaxis: On IV heparin drip Admission and Anticipated Discharge Date Admission Date: February 14, 2020 Subjective Patient is seen and examined at bedside Hematuria resolved Patient prefers to do voiding trial tomorrow Had transient right sided pleuritic pain this morning Saturating well on room air Denies SOB, dizziness, nausea, abdominal pain on IV heparin Review of Systems Review of Systems: All systems reviewed & are unremarkable except as noted in HPI & below Physical Exam Physical Exam: Physical Exam: Vitals signs as noted above General Appearance:Moderately built and nourished, no apparent distress Head: normocephalic, Atraumatic Eyes: normal inspection, EOMI Neck: supple, Trachea midline Respiratory/Chest: Normal breath sounds, CTA, No accessory muscle use Cardiovascular: S1, S2, No murmur Abdomen/GI:Soft, Non tender, Bowel sounds present Extremities/Musculoskelatal:normal inspection, no edema Neurologic/Psych:AAOX3, R>L Extremity weakness due to ALS, moves all extremities Skin: normal color, warm Results & Data Results & Data ([facility]) Vital Signs (Past 12 Hours) Vital Signs Temp Pulse Resp BP BP Pulse Ox 02/18/20 11:22 37.0 C 86 21 119/78 98 02/18/20 07:38 36.8 C 80 15 108/74 96 Laboratory Results Short CBC 02/18/20 Range/Units 04:17 WBC 6.29 (4.8-10.8) K/uL Hgb 15.6 (14.0-18.0) g/dL Hct 45.4 (42-52) % Plt Count 202 (130-400) K/uL Cardiac Enzymes 02/18/20 Range/Units 09:06 Troponin I < 0.015 (0-0.045) ng/ml
[2020-02-18] MEDS: MIRTAZAPINE TAB 15 MG TAB PO SCH (21:20)
[2020-02-19] MEDS: LORazepam 1 MG TAB PO PRN ×3 (00:33→21:13)
[2020-02-19] MEDS: HEPARIN SODIUM/DEXTROSE 25,000 UNITS/500 ML BAG IV SCH ×2 (04:45→21:12)
[2020-02-19 07:19] LABS: Hemoglobin 15.8 g/dL (14.0-18.0); Mean Corpuscular Hemoglobin 31.3 pg (25-34); Mean Corpuscular Hgb Conc 33.6 g/dL (32-36); Mean Corpuscular Volume 93.3 fL (80-100); Mean Platelet Volume 11.1 fL (7.4-10.4); Platelet Count 205 K/uL (130-400); RDW Coefficient of Variation 12.7 % (11.5-14.5); Red Blood Count 5.04 M/uL (4.7-6.1); White Blood Count 5.87 K/uL (4.8-10.8)
[2020-02-19 07:44] LABS: Partial Thromboplastin Ratio 1.9
[2020-02-19 07:46] LABS: BUN Creatinine Ratio 11.3 (10-20); Calcium 8.8 mg/dl (8.5-10.1); Creatinine Clr Calc Pharmacy 170.9 ml/min; Est GFR (African American) 135.4; Est GFR (Non-African American) 116.9; Potassium 3.7 mmol/L (3.5-5.1)
[2020-02-19 07:52] LABS: Partial Thromboplastin Time 52.1 Seconds (21.0-31.0)
[2020-02-19] MEDS: PANTOprazole 40 MG TAB PO SCH (08:01)
[2020-02-19] MEDS: MULTIVITAMIN TAB PO SCH (08:01)
[2020-02-19] MEDS: ESCITALOPRAM OXALATE 20 MG TAB PO SCH (08:02)
[2020-02-19] MEDS: AMPHETAMINE ASP/SULF/DEXTRAMPH 10 MG TAB PO SCH ×2 (08:02→13:06)
--- NOTE | 2020-02-19 13:37 | Hospitalist Progress Note ---
Date of Service February 19, 2020 Assessment & Plan (1) Acute saddle pulmonary embolism: Acute saddle pulmonary embolism Acute right lower extremity DVT likely secondary to prolonged bedrest given the history of ALS CTA:Extensive bilateral pulmonary embolism with a saddle embolus measuring 7 mm in diameter. Equivocal evidence of right ventricular strain. 7 mm left upper lobe pulmonary nodule. Venous Doppler: Acute right lower extremity DVT. No evidence of left lower extremity DVT Head CT:No acute intracranial abnormality. Mild right posterior scalp swelling. ECHO: The left ventricle is normal in size. There is normal left ventricular wall thickness. Flattened septum is consistent with RV pressure/volume overload. EF 50 to 55%. The right ventricle is moderate to severely dilated. The inferior vena cava is moderately dilated. The right ventricle systolic pressure is elevated at 40 to 50 mmHg. Has been on intravenous heparin for the last few days Plan to start Eliquis on discharge tomorrow Denies any significant symptoms Hypercoagulable work-up as outpatient Continue IV heparin Monitor for hemodynamic changes Appreciate critical care input Likely would require lifelong anticoagulation-given the history of ALS and decreased mobility Needs repeat echo in 3 months Saturating well on room air Pleuritic chest intermittently Plan to transition to Eliquis tomorrow if no recurrence of hematuria (2) Elevated troponin: Urinary retention Hematuria Likely due to traumatic catheter monitor H&H Consider Urology eval as needed hematuria resolved We will DC Jean Baptiste catheter today (3) ALS (amyotrophic lateral sclerosis): Follows with neurology at [facility] Stable-has right-sided weakness more than the left (4) ADD (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: Continue Adderall (5) GERD (gastroesophageal reflux disease): Continue PPI (6) Pulmonary nodule: CT as above Will need repeat CT chest in 6 to 12 months (7) DVT prophylaxis: On IV heparin drip Admission and Anticipated Discharge Date Admission Date: February 14, 2020 Anticipated date of discharge: 02/20/20 Subjective Patient was seen and examined in medical telemetry unit He has ALS with right side being affected more than the left and was admitted with saddle pulmonary emboli Remains generally weak but denies any other significant symptoms He has been getting physical therapy and states that he wants to go home Review of Systems Review of Systems: All systems reviewed and are unremarkable except as noted below Musculoskeletal: Has ALS with right-side being affected more than the left. Has neurogenic bladder with occasional incontinence Physical Exam Physical Exam: Lying in bed without any acute distress Constitutional: well developed, well nourished and + ill appearing; no acute distress ENMT: external ear and nose normal, oropharynx normal Neck: trachea midline, no thyromegaly Respiratory: normal respiratory effort, lungs clear to auscultation Cardiovascular: Rate/Rhythm: regular rate and regular rhythm Heart Sounds: no murmur Gastrointestinal (Abdomen): Inspection/Auscultation: abdomen normal to inspection and normal bowel sounds; abdomen not distended Percussion/Palpation: abdomen soft; abdomen nontender Musculoskeletal: Has deformities involving the flexures joints in the limbs. No acute arthritis in any joints. Neurologic: moves all extremities (With decreased movements more on the right than the left side) Speech / Cognition: normal speech Motor/Sensory: no tremor Has flexural deformities involving the extremities Lymphatic: no cervical or axillary lymphadenopathy Results & Data Results & Data ([facility]) Vital Signs (Past 12 Hours) Vital Signs Temp Pulse Pulse Resp BP BP Pulse Ox 02/19/20 11:34 36.5 C 99 H 16 106/72 97 02/19/20 10:00 80 02/19/20 07:33 37.2 C 89 16 96/59 L 94 02/19/20 04:43 36.6 C 91 H 20 102/69 96 02/19/20 01:59 105 H Laboratory Results Short CBC 02/19/20 Range/Units 06:50 WBC 5.87 (4.8-10.8) K/uL Hgb 15.8 (14.0-18.0) g/dL Hct 47.0 (42-52) % Plt Count 205 (130-400) K/uL BMP 02/19/20 06:50 Sodium 138 Potassium 3.7 Chloride 104 Carbon Dioxide 29 BUN 8 Creatinine 0.67 Glucose 94 Calcium 8.8 Cardiac Enzymes 02/18/20 Range/Units 16:46 Troponin I < 0.015 (0-0.045) ng/ml Medications Administered Current Inpatient Medications Acetaminophen (Tylenol) 650 mg PO Q4H PRN PRN Reason: Pain Stop: 03/16/20 19:56 Last Admin: 02/18/20 20:46 Dose: 650 mg Documented by: Amphetamine/Dextroamphetamine (Adderall) 30 mg PO BID@0800,1200 [facility] Stop: 02/29/20 07:59 Last Admin: 02/19/20 13:06 Dose: Not Given Documented by: Escitalopram Oxalate (Lexapro Tab) 20 mg PO QAM [facility] Stop: 03/16/20 08:59 Last Admin: 02/19/20 08:02 Dose: 20 mg Documented by: Heparin Sodium/Dextrose (Heparin Sodium/Dextrose) 25,000 units in 500 mls @ 27 mls/hr IV .[id number] [facility]; Protocol Stop: 03/15/20 17:59 Last Titration: 02/19/20 09:00 Dose: 1,350 units/hr, 27 mls/hr Documented by: Loperamide HCl (Imodium) 2 mg PO PRN PRN PRN Reason: Diarrhea Stop: 03/18/20 16:40 Last Admin: 02/17/20 17:00 Dose: 2 mg Documented by: Lorazepam (Ativan) 1 mg PO DAILY PRN PRN Reason: Anxiety/Agitation Stop: 03/16/20 13:07 Last Admin: 02/18/20 16:27 Dose: 1 mg Documented by: Lorazepam (Ativan) 1 mg PO HS PRN PRN Reason: Insomnia Stop: 03/16/20 22:15 Last Admin: 02/19/20 00:33 Dose: 1 mg Documented by: Mirtazapine (Remeron) 15 mg PO HS [facility] Stop: 03/15/20 20:59 Last Admin: 02/18/20 21:20 Dose: 15 mg Documented by: Morphine Sulfate (Morphine Sulfate) 2 mg IV Q6H PRN PRN Reason: Pain Stop: 03/03/20 09:03 Last Admin: 02/18/20 22:25 Dose: 2 mg Documented by: Multivitamins (Multivitamin Tab) 1 tab PO DAILY [facility] Stop: 03/16/20 08:59 Last Admin: 02/19/20 08:01 Dose: 1 tab Documented by: Pantoprazole Sodium (Protonix) [facility] Stop: 03/16/20 08:59 Last Admin: 02/19/20 08:01 Dose: 40 mg Documented by:
[2020-02-19] MEDS: ACETAMINOPHEN 325 MG TAB PO PRN (18:31)
[2020-02-19] MEDS: MIRTAZAPINE TAB 15 MG TAB PO SCH (21:13)
[2020-02-20] MEDS: HEPARIN SODIUM/DEXTROSE 25,000 UNITS/500 ML BAG IV SCH (02:23)
[2020-02-20 08:22] LABS: Basophils # (auto) 0.02 K/uL (0-0.2); Basophils % (auto) 0.4 %; Eosinophils # (auto) 0.15 K/uL (0-0.5); Eosinophils % (auto) 3.2 %; Hematocrit (blood only) 45.8 % (42-52); Hemoglobin 15.8 g/dL (14.0-18.0); Immature Granulocytes # (auto) 0.01 K/uL (0.00-0.02); Immature Granulocytes % (auto) 0.2 %; Lymphocytes # (auto) 1.25 K/uL (1.2-3.4); Lymphocytes % (auto) 26.4 %; Mean Corpuscular Hemoglobin 31.7 pg (25-34); Mean Corpuscular Hgb Conc 34.5 g/dL (32-36); Mean Platelet Volume 11.3 fL (7.4-10.4); Monocytes # (auto) 0.52 K/uL (0.11-0.59); Neutrophils # (auto) 2.78 K/uL (1.4-6.5); Neutrophils % (auto) 58.8 %; Platelet Count 200 K/uL (130-400); RDW Coefficient of Variation 12.7 % (11.5-14.5); RDW Standard Deviation 42.4 fL (36.4-46.3); Red Blood Count 4.98 M/uL (4.7-6.1); White Blood Count 4.73 K/uL (4.8-10.8)
[2020-02-20] MEDS: ESCITALOPRAM OXALATE 20 MG TAB PO SCH (08:43)
[2020-02-20] MEDS: PANTOprazole 40 MG TAB PO SCH (08:43)
[2020-02-20] MEDS: MULTIVITAMIN TAB PO SCH (08:43)
[2020-02-20 08:44] LABS: BUN Creatinine Ratio 14.4 (10-20); Calcium 9.3 mg/dl (8.5-10.1); Creatinine Clr Calc Pharmacy 183.2 ml/min; Est GFR (African American) 140.8; Est GFR (Non-African American) 121.5; Magnesium 2.3 mg/dl (1.8-2.4); Potassium 3.9 mmol/L (3.5-5.1)
[2020-02-20 08:45] LABS: Phosphorus 3.5 mg/dl (2.5-4.9)
[2020-02-20] MEDS: AMPHETAMINE ASP/SULF/DEXTRAMPH 10 MG TAB PO SCH ×2 (08:48→13:13)
[2020-02-20 10:39] LABS: Partial Thromboplastin Ratio 1.9
[2020-02-20 10:41] LABS: Partial Thromboplastin Time 53.9 Seconds (21.0-31.0)
--- NOTE | 2020-02-20 10:52 | Hospitalist Progress Note ---
Date of Service February 20, 2020 Assessment & Plan (1) Acute saddle pulmonary embolism: Acute saddle pulmonary embolism Acute right lower extremity DVT likely secondary to prolonged bedrest given the history of ALS CTA:Extensive bilateral pulmonary embolism with a saddle embolus measuring 7 mm in diameter. Equivocal evidence of right ventricular strain. 7 mm left upper lobe pulmonary nodule. Venous Doppler: Acute right lower extremity DVT. No evidence of left lower extremity DVT Head CT:No acute intracranial abnormality. Mild right posterior scalp swelling. ECHO: The left ventricle is normal in size. There is normal left ventricular wall thickness. Flattened septum is consistent with RV pressure/volume overload. EF 50 to 55%. The right ventricle is moderate to severely dilated. The inferior vena cava is moderately dilated. The right ventricle systolic pressure is elevated at 40 to 50 mmHg. Has been on intravenous heparin for the last few days Plan to start Eliquis on discharge tomorrow Denies any significant symptoms Will start Eliquis 10 mg twice daily for 7 days and then 5 mg twice daily to continue Most likely going to be a lifelong medication given his history of ALS with decreased movements Hypercoagulable work-up as outpatient Continue IV heparin Monitor for hemodynamic changes Appreciate critical care input Likely would require lifelong anticoagulation-given the history of ALS and decreased mobility Needs repeat echo in 3 months Saturating well on room air Pleuritic chest intermittently Plan to transition to Eliquis tomorrow if no recurrence of hematuria (2) Elevated troponin: Urinary retention Hematuria Likely due to traumatic catheter monitor H&H Consider Urology eval as needed hematuria resolved We will DC Jean Baptiste catheter on 02/19/2020 Has been passing urine normally (3) ALS (amyotrophic lateral sclerosis): Follows with neurology at [facility] Stable-has right-sided weakness more than the left No worsening and/or new symptoms secondary to ALS (4) ADD (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: Continue Adderall (5) GERD (gastroesophageal reflux disease): Continue PPI (6) Pulmonary nodule: CT as above Will need repeat CT chest in 6 to 12 months (7) DVT prophylaxis: On IV heparin drip Admission and Anticipated Discharge Date Admission Date: February 14, 2020 Anticipated date of discharge: 02/20/20 Subjective Patient was seen and examined in medical telemetry unit He has ALS with right side being affected more than the left and was admitted with saddle pulmonary emboli Remains generally weak but denies any other significant symptoms He has been getting physical therapy and states that he wants to go home 02/20/2020 The patient was seen and examined in medical floor He does not have any complaints as of today Denies any fever and/or chills, any abdominal pain nausea and or vomiting or any problem with urination Will be discharged home this afternoon Review of Systems Review of Systems: All systems reviewed and are unremarkable except as noted below Musculoskeletal: Has ALS with right-side being affected more than the left. Has neurogenic bladder with occasional incontinence Physical Exam Physical Exam: Sitting on a chair without any acute distress Constitutional: well developed, well nourished and + ill appearing; no acute distress ENMT: external ear and nose normal, oropharynx normal Neck: trachea midline, no thyromegaly Respiratory: normal respiratory effort, lungs clear to auscultation Cardiovascular: Rate/Rhythm: regular rate and regular rhythm Heart Sounds: no murmur Gastrointestinal (Abdomen): Inspection/Auscultation: abdomen normal to inspection and normal bowel sounds; abdomen not distended Percussion/Palpation: abdomen soft; abdomen nontender Neurologic: moves all extremities (With decreased movements more on the right than the left side) Speech / Cognition: normal speech Motor/Sensory: no tremor Lymphatic: no cervical or axillary lymphadenopathy Results & Data Results & Data ([facility]) Vital Signs (Past 12 Hours) Vital Signs Temp Pulse Pulse Resp BP Pulse Ox 02/20/20 07:13 62 02/20/20 06:48 36.7 C 73 15 92/58 L 96 02/20/20 03:39 36.5 C 77 15 99/61 L 96 02/19/20 23:39 36.3 C L 88 15 101/60 95 02/19/20 22:53 114 H Laboratory Results Short CBC 02/20/20 Range/Units 07:50 WBC 4.73 L (4.8-10.8) K/uL Hgb 15.8 (14.0-18.0) g/dL Hct 45.8 (42-52) % Plt Count 200 (130-400) K/uL BMP 02/20/20 07:50 Sodium 138 Potassium 3.9 Chloride 104 Carbon Dioxide 28 BUN 9 Creatinine 0.61 Glucose 91 Calcium 9.3 Medications Administered Current Inpatient Medications Acetaminophen (Tylenol) 650 mg PO Q4H PRN PRN Reason: Pain Stop: 03/16/20 19:56 Last Admin: 02/19/20 18:31 Dose: 650 mg Documented by: Amphetamine/Dextroamphetamine (Adderall) 30 mg PO BID@0800,1200 [facility] Stop: 02/29/20 07:59 Last Admin: 02/20/20 08:48 Dose: Not Given Documented by: Escitalopram Oxalate (Lexapro Tab) [facility] Stop: 03/16/20 08:59 Last Admin: 02/20/20 08:43 Dose: 20 mg Documented by: Heparin Sodium/Dextrose (Heparin Sodium/Dextrose) 25,000 units in 500 mls @ 27 mls/hr IV .[id number] [facility]; Protocol Stop: 03/15/20 17:59 Last Titration: 02/20/20 10:49 Dose: 1,350 units/hr, 27 mls/hr Documented by: Loperamide HCl (Imodium) 2 mg PO PRN PRN PRN Reason: Diarrhea Stop: 03/18/20 16:40 Last Admin: 02/17/20 17:00 Dose: 2 mg Documented by: Lorazepam (Ativan) 1 mg PO DAILY PRN PRN Reason: Anxiety/Agitation Stop: 03/16/20 13:07 Last Admin: 02/19/20 14:28 Dose: 1 mg Documented by: Lorazepam (Ativan) 1 mg PO HS PRN PRN Reason: Insomnia Stop: 03/16/20 22:15 Last Admin: 02/19/20 21:13 Dose: 1 mg Documented by: Mirtazapine (Remeron) 15 mg PO HS [facility] Stop: 03/15/20 20:59 Last Admin: 02/19/20 21:13 Dose: 15 mg Documented by: Morphine Sulfate (Morphine Sulfate) 2 mg IV Q6H PRN PRN Reason: Pain Stop: 03/03/20 09:03 Last Admin: 02/18/20 22:25 Dose: 2 mg Documented by: Multivitamins (Multivitamin Tab) 1 tab PO DAILY [facility] Stop: 03/16/20 08:59 Last Admin: 02/20/20 08:43 Dose: 1 tab Documented by: Pantoprazole Sodium (Protonix) 40 mg PO [facility] Stop: 03/16/20 08:59 Last Admin: 02/20/20 08:43 Dose: 40 mg Documented by:
[2020-02-20] MEDS ORDERED: APIXABAN 5 MG TABLET PO SCH (11:00)
[2020-02-20] MEDS: ACETAMINOPHEN 325 MG TAB PO PRN (11:44)
--- NOTE | 2020-02-21 08:25 | Discharge Summary ---
Date of Service February 21, 2020 Admission HPI Per Admitting Provider 44-year-old male with PMH ALS, ADD, GERD, and other problems listed below who presents to the ED for evaluation of shortness of breath. Patient reports that he had sudden onset of shortness of breath while sitting at his computer desk today. He reports associated lightheadedness and dizziness however no syncopal event. No chest pain. Over the past 1 month, patient has noted increasing swelling to his legs and feet, right greater than left. He has been intermittently using compression stockings. Patient reports he otherwise has been feeling well recently. Patient has ALS and continues to be ambulatory with a walker. No abdominal pain, nausea, vomiting, diarrhea. Denies cough and sputum production. No fevers or chills. He denies any urinary symptoms. In the ED, CTA chest shows extensive bilateral pulmonary embolism with saddle pulmonary embolism, possible evidence of right heart strain. Labs show mildly elevated troponin 0.069. Patient is tachycardic, tachypneic, hypoxic room air. BP is stable. Oxygen saturations improved with oxygen via nasal cannula. Patient was given a heparin bolus and started on a drip. Admission Exam Per Admitting Provider Constitutional: WD/WN, vitals as above Eyes: PERRL, conjunctivae normal, anicteric sclerae ENMT: external ear and nose normal, oropharynx normal Respiratory: normal respiratory effort, lungs clear to auscultation Cardiovascular: Rate/Rhythm: regular rhythm and + tachycardic Vessels: normal peripheral pulses Extremities: + edema (+3 edema RLE, +2 edema LLE) Gastrointestinal (Abdomen): normal bowel sounds, soft, nontender, no hepatosplenomegaly Musculoskeletal: Extremities: no cyanosis and no clubbing Some mild weakness noted throughout secondary to ALS Skin: no rashes, warm and dry Neurologic: PERRL, EOMI, accommodation nl, no face palsy, no dysarthria Psychiatric: A+Ox3, euthymic affect Principal Diagnosis Acute saddle pulmonary embolism, right lower extremity DVT, amyotrophic lateral sclerosis, Discharge Exam Constitutional well developed, well nourished and + ill appearing; no acute distress ENMT external ear and nose normal, oropharynx normal Neck trachea midline, no thyromegaly Respiratory normal respiratory effort, lungs clear to auscultation Cardiovascular Rate/Rhythm: regular rate and regular rhythm Heart Sounds: no murmur Gastrointestinal (Abdomen) Inspection/Auscultation: abdomen normal to inspection and normal bowel sounds; abdomen not distended Percussion/Palpation: abdomen soft; abdomen nontender Neurologic moves all extremities (With decreased movements more on the right than the left side) Speech / Cognition: normal speech Motor/Sensory: no tremor Lymphatic no cervical or axillary lymphadenopathy Discharge Data Allergies Allergy/AdvReac Type Severity Reaction Status Date / Time tramadol AdvReac Unknown GI Verified 02/14/20 17:48 discomfort Consultations 02/14/20 18:03 ED Decision to Admit Stat 02/14/20 19:24 Consult Case Management - Discharge Planning Routine Consult [employer] Routine Ordered Studies 02/14/20 16:57 CT angio chest PE protocol Stat 02/14/20 19:24 US venous doppler [facility] Urgent Hospital Course (1) Acute saddle pulmonary embolism: Acute saddle pulmonary embolism Acute right lower extremity DVT likely secondary to prolonged bedrest given the history of ALS CTA:Extensive bilateral pulmonary embolism with a saddle embolus measuring 7 mm in diameter. Equivocal evidence of right ventricular strain. 7 mm left upper lobe pulmonary nodule. Venous Doppler: Acute right lower extremity DVT. No evidence of left lower extremity DVT Head CT:No acute intracranial abnormality. Mild right posterior scalp swelling. ECHO: The left ventricle is normal in size. There is normal left ventricular wall thickness. Flattened septum is consistent with RV pressure/volume overload. EF 50 to 55%. The right ventricle is moderate to severely dilated. The inferior vena cava is moderately dilated. The right ventricle systolic pressure is elevated at 40 to 50 mmHg. Has been on intravenous heparin for the last few days Plan to start Eliquis on discharge tomorrow Denies any significant symptoms Will start Eliquis 10 mg twice daily for 7 days and then 5 mg twice daily to continue Most likely going to be a lifelong medication given his history of ALS with decreased movements Hypercoagulable work-up as outpatient Continue IV heparin Monitor for hemodynamic changes Appreciate critical care input Likely would require lifelong anticoagulation-given the history of ALS and decreased mobility Needs repeat echo in 3 months Saturating well on room air Pleuritic chest intermittently Plan to transition to Eliquis tomorrow if no recurrence of hematuria (2) Elevated troponin: Urinary retention Hematuria Likely due to traumatic catheter monitor H&H Consider Urology eval as needed hematuria resolved We will DC Jean Baptiste catheter on 02/19/2020 Has been passing urine normally (3) ALS (amyotrophic lateral sclerosis): Follows with neurology at [facility] Stable-has right-sided weakness more than the left No worsening and/or new symptoms secondary to ALS (4) ADD (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: Continue Adderall (5) GERD (gastroesophageal reflux disease): Continue PPI (6) Pulmonary nodule: CT as above Will need repeat CT chest in 6 to 12 months (7) DVT prophylaxis: On IV heparin drip Total Time Total Time Spent Total Time Spent (In Minutes): 35 minutes Total Time Includes: Examination of the Patient, Discharge Planning, Medication Reconciliation and Communication With Other Providers Discharge Plan Discharge Items Patient Disposition: Home - Home Health Services Reason For Visit: SADDLE PE Discharge Diagnosis: Acute saddle pulmonary embolism, right lower extremity DVT, amyotrophic lateral sclerosis, Condition on Discharge: Fair Activity: Resume your previous activity Non-emergency contact: Primary Care Provider Call non-emergency contact if: you have any medication questions and your symptoms worsen Follow-up/Referrals: Vinayak Guillen MD [Primary Care Provider] - 02/26/20 11:20 am (02/26/2020 11:20 AM Provider Vinayak Guillen MD Department Family Practice [facility] ) Diet: Regular Addtl Attending Provider Instructions: Please take precaution to avoid fall Continue Eliquis as advised You have a benign looking 7 mm left upper lobe pulmonary nodule: Follow-up CT recommended at 6 to 12-month. Pending Studies at Discharge: No Stand-Alone Forms: My [facility], Smoking Cessation Medications and DC Order Prescriptions: New Eliquis 5 mg tablet 5 mg PO UD Qty: 60 RF: 0 Continued dextroamphetamine-amphetamine 20 mg tablet 30 mg PO BID RF: 0 omeprazole 20 mg capsule,delayed release(DR/EC) 20 mg PO QAM RF: 0 escitalopram oxalate 20 mg tablet 20 mg PO QAM RF: 0 lorazepam [Ativan] 1 mg Tablet 1 mg PO DIRECTED PRN (Reason: Sleep) RF: 0 multivitamin Tablet 1 tab PO DAILY RF: 0 ondansetron HCl [Zofran] 4 mg tablet 4 mg PO BID PRN (Reason: Nausea) RF: 0 mirtazapine 15 mg tablet 15 mg PO HS RF: 0 Discharge Orders: Discharge Order (Routine); Ordered 02/20/20 Ordered By: Samuel Piedra Admission Data Admit Date/Time: 02/14/20 18:13 Attending Provider: Samuel Piedra Admit Provider: Rey Antonio Primary Care Provider: Vinayak Guillen Other Providers: Rey Antonio ; Artie Gunter ; Miki Butterfield ; [facility], [facility] Other Interventions: Discharge Summary Assessment (RN) Last Done: 02/20/20 13:10 DC Date/Time DO NOT enter until pt leaves facility: 02/20/20 14:28
== END 2020-02-20 14:28 | disposition home health service (06) | DRG 175 ==
LOC: ED 16:17 → 1E 18:13 → SUATTDRO 18:13 → 1E 18:56 → 2W 02-18 17:32 → UNDODISIN 02-20 13:45

== ENCOUNTER 2023-08-14 18:46 | Inpatient (IN) ==
[2023-08-14] MEDS: SODIUM CHLORIDE 0.9% 1,000 ML IV SCH ×2 (19:00→20:02)
--- NOTE | 2023-08-14 19:07 | Emergency Department Note ---
Impression & Plan Weakness, ALS (amyotrophic lateral sclerosis), Abdominal pain ED Provider Note NAME: CRIS STEEN AGE: 48 SEX: M : 1975 ARRIVES VIA: Ambulance INFORMANT: Patient ED PROVIDER(S): Austin Gomez DO CHIEF COMPLAINT: weakness HPI: Patient is a 48-year-old male who presents the ER with a past medical history of PE, ALS, ADD, GERD for weakness. He had COVID 3 weeks ago and since being home he has not been eating or drinking much. He feels very weak. He denies any headache or change in vision. No chest pain or shortness of breath. He admits to belly pain. No dysuria, urgency, or frequency. No other exacerbating or remitting factors. Additional history obtained from who was present at bedside who notes that she is able to take care of him. ADDITIONAL HISTORY OBTAINED: Per HPI Chronic Medical/Social Conditions Affecting Care: Per HPI PAST MEDICAL HISTORY:See Below PAST SURGICAL HISTORY:See Below FAMILY HISTORY:See Below SOCIAL HISTORY:See Below HOME MEDICATIONS:See Below ALLERGIES:See Below VITALS:See Below PHYSICAL EXAMINATION: GENERAL: Sitting up in bed, alert, well appearing, well nourished, no distress, non-toxic EYE EXAM: normal conjunctiva. PERRL and EOM's grossly intact. OROPHARYNX: mucous membranes are dry NECK: supple, no nuchal rigidity, no adenopathy, non-tender LUNGS: Clear to auscultation. Normal chest wall mechanics HEART: no murmurs, S1 normal and S2 normal ABDOMEN: abdomen soft, non-tender, normo-active bowel sounds, no masses, no rebound or guarding. SKIN: no rashes and no bruising UPPER EXTREMITIES: upper extremities are grossly normal. LOWER EXTREMITIES: No pitting edema. NEURO EXAM: Normal sensorium, cranial nerves II-XII grossly intact, normal speech, no gross weakness of arms, no weakness of legs. MEDICAL DECISION MAKING: Patient is a 48-year-old male who presents ER with past medical history of ALS for the above-stated complaint. IV established blood work was obtained. Labs show mild leukopenia at 4.3 thousand. No significant anemia. BMP with mild hypokalemia at 3.1. Mag slightly low at 1.5. LFTs bilirubin was unremarkable. Potassium was repleted orally. Troponin was negative. Lipase is normal. UA was clean. CT abdomen pelvis showed ileus versus enteritis with a slightly dilated small bowel at 2.9. Patient was updated and would prefer to stay due to the weakness and muscle cramps. External Records Reviewed: Previous admission for saddle PE to the [facility] on March 2020 Consults/Care Managements Discussions: Per MDM Triage Nursing notes reviewed. Limited review of prior medical records performed Vital Signs: reviewed and remarkable for tachy Differential diagnosis: Infection, dehydration, metabolic abnormality, hypo/hyperglycemia, electrolyte disturbance, anemia, hypoxia, cardiac sources, intracerebral event, toxicologic, neurologic, as well as other pathologies. ER treatment provided: See below Diagnostics interpreted by me include EKG and cardiac monitoring as listed below: -Cardiac Monitoring: An order was placed for continuous cardiac monitoring. The monitor shows a rate of 104 with sinus rhythm. -ECG: none -Laboratory studies:Interpreted by me as stated above in MDM and shown below. Imaging studies: Xrays: As interpreted by me: Portable AP upright 1 view of the chest shows no focal CTs show: CT abdomen pelvis as described above Procedures:none Critical Care: None Past Med/Surg History Medical History COVID-19 History of pulmonary embolism ADD (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 GERD (gastroesophageal reflux disease) ALS (amyotrophic lateral sclerosis) Surgical History History of vasectomy H/O rhinoplasty S/P left knee arthroscopy Family History Father Pulmonary embolism Mother Hypertension Social History Smoking Status: Never smoker Second Hand Exposure: No; Do You Dip or Chew Tobacco: No; Hx Alcohol Use: Yes Alcohol type: hard liquor Hx Substance Use: No Preferred Language: Russian Communication Ability: Effective Human Resources Hr Generalist Required: No Beliefs That Will Affect Care: None marital status: Current Living Situation: Family current occupational status: employed Feels Safe at Home: Yes Assistive Devices: Walker Allergies Allergies Allergy/AdvReac Type Severity Reaction Status Date / Time tramadol AdvReac Unknown GI Verified 02/12/21 23:43 discomfort Home Meds Home Medications Medication Instructions Recorded Confirmed dextroamphetamine-amphetamine 20 20 mg PO TID 01/31/19 07/25/23 mg tablet escitalopram oxalate 20 mg tablet 20 mg PO QAM 01/31/19 07/25/23 omeprazole 20 mg capsule,delayed 20 mg PO QAM 01/31/19 07/25/23 release apixaban 5 mg tablet (Eliquis) 5 mg PO BID 11/19/20 07/25/23 mirtazapine 30 mg tablet 30 mg PO HS 02/05/21 07/25/23 Benadryl 2 cap PO HS 07/25/23 07/25/23 gabapentin 100 mg capsule 100 mg PO . @AM,MIDDAY 07/25/23 07/25/23 hyoscyamine sulfate 0.375 mg 0.375 mg PO BID 07/25/23 07/25/23 tablet,extended release,12 hr ipratropium 0.5 mg-albuterol 3 mg 3 ml inhalation Q6H PRN WHEEZING 07/25/23 07/25/23 (2.5 mg base)/3 mL nebulization OR SOB soln Previous Rx's Medication Instructions Recorded clonazepam 0.5 mg tablet (Klonopin) 0.5 mg PO HS #10 tabs 07/18/22 ondansetron 4 mg disintegrating 4 mg PO Q6H PRN nausea and 07/25/23 tablet vomiting #14 tabs Results & Data (ED) Vital Signs Vital Signs - 24 hr 08/14/23 19:00 08/14/23 19:05 08/14/23 19:26 Temperature 36.9 C Temperature Source Oral Pulse Rate 107 H 105 H Pulse Rate [Apical] Respiratory Rate 19 Blood Pressure 133/88 Blood Pressure [Right Arm] Blood Pressure Mean 103 Blood Pressure Mean [Right Arm] Pulse Oximetry 98 98 Oxygen Delivery Method Room Air Room Air Sepsis Recent Fever Within 48 Hours No Sepsis New/Unexplained Change in Mental Status No Sepsis Action Taken by Nursing No Action Required 08/14/23 22:50 08/14/23 23:44 Temperature Temperature Source Pulse Rate 101 H Pulse Rate [Apical] 107 H Respiratory Rate 18 Blood Pressure Blood Pressure [Right Arm] 132/92 Blood Pressure Mean Blood Pressure Mean [Right Arm] 105 Pulse Oximetry 99 Oxygen Delivery Method Room Air Sepsis Recent Fever Within 48 Hours Sepsis New/Unexplained Change in Mental Status Sepsis Action Taken by Nursing Laboratory Data 08/14/23 19:24 08/14/23 19:24 Lab Results 08/14/23 08/14/23 08/14/23 Range/Units 19:21 19:24 Unknown WBC 4.33 L (4.8-10.8) K/ul RBC 4.61 L (4.70-6.10) M/uL Hgb 13.6 L (14.0-18.0) g/dl Hct 42.1 (42.0-52.0) % MCV 91.3 (80.0-100.0) fL MCH 29.5 (25.0-34.0) pg MCHC 32.3 (32.0-36.0) g/dL RDW Std Deviation 42.8 (36.4-46.3) fL RDW Coeff of Hussain 13.0 (11.5-14.5) % Plt Count 215 (130-400) K/uL MPV 11.4 (9.4-12.4) fL Immature Gran % (Auto) 0.2 % Neut % (Auto) 70.2 % Lymph % (Auto) 21.2 % [place] % (Auto) 7.2 % Eos % (Auto) 0.7 % Baso % (Auto) 0.5 % Neut # (Auto) 3.04 (1.40-6.50) K/uL Lymph # (Auto) 0.92 L (1.20-3.40) K/uL [place] # (Auto) 0.31 (0.11-0.59) K/uL Eos # (Auto) 0.03 (0.00-0.50) K/uL Baso # (Auto) 0.02 (0.00-0.20) K/uL Immature Gran # (Auto) 0.01 (0.01-0.20) K/uL APTT 28.5 (21.0-31.0) Seconds PTT Ratio 1.0 Sodium 140 (136-145) mmol/L Potassium 3.1 L (3.5-5.1) mmol/L Chloride 110 H (98-107) mmol/L Carbon Dioxide 23 (21-32) mmol/L Anion Gap 7 (3-11) BUN 7 (6-23) mg/dl Creatinine < 0.20 L (0.6-1.4) mg/dl Est Cr Clr Drug Dosing 539.9 ml/min Est GFR ( Amer) > 150.0 ml/min Est GFR (Non-Af Amer) > 150.0 ml/min BUN/Creatinine Ratio TNP Glucose 74 (70-99(Fasting)) mg/dl Calcium 7.1 L (8.6-10.3) mg/dl Magnesium 1.5 L (1.7-2.4) mg/dl Total Bilirubin 0.4 (0.2-1.0) mg/dl AST 23 (13-39) U/L ALT 22 (7-52) U/L Alkaline Phosphatase 52 (34-104) U/L Troponin I High Sens 3.0 (0-20) pg/ml Total Protein 5.3 L (6.0-8.3) gm/dl Albumin 3.0 L (3.4-5.0) gm/dl Globulin 2.3 L (2.5-4.0) gm/dl Albumin/Globulin Ratio 1.3 (0.9-2) Lipase 14 (11-82) U/L Urine Color Dark Yellow Urine Appearance Clear (Clear) Urine pH 5.0 (4.5-7.5) Ur Specific [place] 1.032 H (1.000-1.030) Urine Protein Negative (Negative) Urine Glucose (UA) Negative (Negative) Urine Ketones 2+ H (Negative) Urine Blood Negative (Negative) Urine Nitrite Positive A (Negative) Urine Bilirubin Negative (Negative) Urine Urobilinogen Negative (Negative) Ur Leukocyte Esterase Negative (Negative) Urine WBC (Auto) 1-5 (0-5) /hpf Urine RBC (Auto) 0-4 (0-4) /hpf U Hyaline Cast (Auto) 0 (0-5) /lpf U Epithel Cells (Auto) 0-5 (0-5) /lpf Urine Bacteria (Auto) Negative (Negative) Urine Yeast Not Reportable Administered Medications Discontinued Medications Sodium Chloride (Nss) 1,000 mls @ 999 mls/hr IV .Q1H1M CESAR Stop: 08/14/23 21:15 Last Infusion: 08/14/23 21:45 Dose: Infused Documented By: NRArsh Admin: 08/14/23 20:02 Dose: 999 mls/hr Documented By: Infusion: 08/14/23 20:02 Dose: Infused Documented By: Admin: 08/14/23 19:00 Dose: 999 mls/hr Documented By: LILO Ioversol (Optiray 320 500ml) 82 ml IV ONCE ONE Stop: 08/14/23 20:48 Last Admin: 08/14/23 20:48 Dose: 82 ml Documented By: PAMELA Morphine Sulfate (Morphine Sulfate 2 Mg/Ml Carp) 2 mg IV NOW STA Stop: 08/14/23 21:52 Last Admin: 08/14/23 21:55 Dose: 2 mg Documented By: LILO Ondansetron HCl (Ondansetron Inj 2 Mg/Ml 2 Ml Vial) 4 mg IV NOW STA Stop: 08/14/23 21:52 Last Admin: 08/14/23 21:55 Dose: 4 mg Documented By: LILO Potassium Chloride (Potassium Chloride Crtab 20 Meq Tabcr) 40 meq PO NOW STA Stop: 08/14/23 21:35 Last Admin: 08/14/23 21:55 Dose: 20 meq Documented By: LILO Potassium Chloride (Potassium Chloride 20 Meq/15 Ml Udc) 40 meq PO NOW STA Stop: 08/14/23 22:40 Last Admin: 08/14/23 22:47 Dose: 20 meq Documented By: LILO Imaging Data Radiologist's Impression: Abdomen/Pelvis CT 08/14/23 19:05 Exam(s): CT ABDOMEN + PELVIS With Contrast IV Amt: 82 ML OPTIRAY 320 EXAM: CT Abdomen and Pelvis With Intravenous Contrast CLINICAL HISTORY: Reason for exam: abd pain. TECHNIQUE: Axial computed tomography images of the abdomen and pelvis with intravenous contrast. CTDI is 18.42 mGy and DLP is 1055.6 mGy-cm. Automated exposure control was utilized for the study. A dose lowering technique was utilized adhering to the principles of ALARA. CONTRAST: Patient received 82 ML OPTIRAY 320 of IV contrast COMPARISON: No relevant prior studies available. FINDINGS: Lung bases: Unremarkable. No mass. No consolidation. ABDOMEN: Liver: Unremarkable. No focal hepatic lesion. Gallbladder and bile ducts: Unremarkable. No calcified stones. No ductal dilation. Pancreas: Atrophy of the pancreas. No ductal dilation. Spleen: Unremarkable. No splenomegaly. Adrenals: Unremarkable. No mass. Kidneys and ureters: Unremarkable. No hydronephrosis or delayed nephrogram. Stomach and bowel: Mild fecal retention, correlate for constipation. Fluid filled small bowel measuring up to 2.9 cm, correlate for enteritis/ileus. No definite bowel obstruction identified however, if symptoms worsen, consider repeat exam with oral contrast. PELVIS: Appendix: No findings to suggest acute appendicitis. Bladder: Unremarkable. No mass. Reproductive: Vasectomy clips. ABDOMEN and PELVIS: Intraperitoneal space: Unremarkable. No free air. No significant fluid collection. Bones/joints: Degenerative changes of the spine. No acute fracture. No dislocation. Soft tissues: Unremarkable. Vasculature: Unremarkable. No abdominal aortic aneurysm. Lymph nodes: Unremarkable. No enlarged lymph nodes. IMPRESSION: Mild fecal retention, correlate for constipation. Fluid filled small bowel measuring up to 2.9 cm, correlate for enteritis/ileus. No definite bowel obstruction identified however, if symptoms worsen, consider repeat exam with oral contrast. Electronically signed by: Chriss Barkley MD 08/14/23 21:54 PM Discharge Plan Visit Data Chief Complaint: Illness ED Provider: Austin Gomez Discharge Problem: Weakness, ALS (amyotrophic lateral sclerosis), Abdominal pain Forms Stand Alone Forms: [facility] Prescriptions Prescriptions: No Action dextroamphetamine-amphetamine 20 mg tablet 20 mg PO TID omeprazole 20 mg capsule,delayed release(DR/EC) 20 mg PO QAM escitalopram oxalate 20 mg tablet 20 mg PO QAM mirtazapine 30 mg tablet 30 mg PO HS clonazepam [Klonopin] 0.5 mg tablet 0.5 mg PO HS Qty: 10 0RF Rx Instructions: administer 30 minutes before bedtime ipratropium-albuterol 0.5 mg-3 mg(2.5 mg base)/3 mL solution for nebulization 3 ml INHALATION Q6H PRN (Reason: WHEEZING OR SOB) hyoscyamine sulfate 0.375 mg tablet extended release 12 hr 0.375 mg PO BID gabapentin 100 mg capsule 100 mg PO . @AM,MIDDAY Rx Instructions: am and midday Benadryl 2 cap PO HS Rx Instructions: unknown dose ondansetron 4 mg tablet,disintegrating 4 mg PO Q6H PRN (Reason: nausea and vomiting) Qty: 14 0RF Eliquis 5 mg tablet 5 mg PO BID Referrals Referrals: Keith Cross MD [Primary Care Provider] - Discharge Problem: Abdominal pain Qualifiers: Abdominal location: unspecified location Qualified Code(s): R10.9 - Unspecified abdominal pain
[2023-08-14 19:44] LABS: Basophils # (auto) 0.02 K/uL (0.00-0.20); Basophils % (auto) 0.5 %; Eosinophils # (auto) 0.03 K/uL (0.00-0.50); Eosinophils % (auto) 0.7 %; Hematocrit (blood only) 42.1 % (42.0-52.0); Hemoglobin 13.6 g/dl (14.0-18.0); Immature Granulocytes # (auto) 0.01 K/uL (0.01-0.20); Immature Granulocytes % (auto) 0.2 %; Lymphocytes # (auto) 0.92 K/uL (1.20-3.40); Lymphocytes % (auto) 21.2 %; Mean Corpuscular Hemoglobin 29.5 pg (25.0-34.0); Mean Corpuscular Hgb Conc 32.3 g/dL (32.0-36.0); Mean Corpuscular Volume 91.3 fL (80.0-100.0); Mean Platelet Volume 11.4 fL (9.4-12.4); Monocytes # (auto) 0.31 K/uL (0.11-0.59); Monocytes % (auto) 7.2 %; Neutrophils # (auto) 3.04 K/uL (1.40-6.50); Neutrophils % (auto) 70.2 %; Platelet Count 215 K/uL (130-400); RDW Standard Deviation 42.8 fL (36.4-46.3); Red Blood Count 4.61 M/uL (4.70-6.10); White Blood Count 4.33 K/ul (4.8-10.8)
[2023-08-14 20:01] LABS: Alanine Aminotransferase 22 U/L (7-52); Albumin Globulin Ratio 1.3 (0.9-2); Alkaline Phosphatase 52 U/L (34-104); Anion Gap 7 (3-11); Aspartate Aminotransferase 23 U/L (13-39); Bilirubin,Total 0.4 mg/dl (0.2-1.0); Blood Urea Nitrogen 7 mg/dl (6-23); Calcium 7.1 mg/dl (8.6-10.3); Carbon Dioxide 23 mmol/L (21-32); Chloride 110 mmol/L (98-107); Creatinine Clr Calc Pharmacy 539.9 ml/min; Est GFR (African American) > 150.0 ml/min; Est GFR (Non-African American) > 150.0 ml/min; Globulin 2.3 gm/dl (2.5-4.0); Glucose 74 mg/dl (70-99(Fasting)); Lipase 14 U/L (11-82); Potassium 3.1 mmol/L (3.5-5.1); Sodium 140 mmol/L (136-145); Total Protein 5.3 gm/dl (6.0-8.3)
[2023-08-14] MEDS ORDERED: OPTIRAY 320 500ml IV ONE (20:47)
[2023-08-14] MEDS ORDERED: POTASSIUM CHLORIDE CRTAB 20 MEQ TABCR PO STA (21:34)
[2023-08-14] MEDS ORDERED: MoRPHine SULFATE 2 MG/ML CARP IV STA (21:51)
[2023-08-14] MEDS ORDERED: ONDANSETRON INJ 2 MG/ML 2 ML VIAL IV STA (21:51)
--- NOTE | 2023-08-14 21:55 | CT Scan Report ---
Exam(s): CT ABDOMEN + PELVIS With Contrast IV Amt: 82 ML OPTIRAY 320 EXAM: CT Abdomen and Pelvis With Intravenous Contrast CLINICAL HISTORY: Reason for exam: abd pain. TECHNIQUE: Axial computed tomography images of the abdomen and pelvis with intravenous contrast. CTDI is 18.42 mGy and DLP is 1055.6 mGy-cm. Automated exposure control was utilized for the study. A dose lowering technique was utilized adhering to the principles of ALARA. CONTRAST: Patient received 82 ML OPTIRAY 320 of IV contrast COMPARISON: No relevant prior studies available. FINDINGS: Lung bases: Unremarkable. No mass. No consolidation. ABDOMEN: Liver: Unremarkable. No focal hepatic lesion. Gallbladder and bile ducts: Unremarkable. No calcified stones. No ductal dilation. Pancreas: Atrophy of the pancreas. No ductal dilation. Spleen: Unremarkable. No splenomegaly. Adrenals: Unremarkable. No mass. Kidneys and ureters: Unremarkable. No hydronephrosis or delayed nephrogram. Stomach and bowel: Mild fecal retention, correlate for constipation. Fluid filled small bowel measuring up to 2.9 cm, correlate for enteritis/ileus. No definite bowel obstruction identified however, if symptoms worsen, consider repeat exam with oral contrast. PELVIS: Appendix: No findings to suggest acute appendicitis. Bladder: Unremarkable. No mass. Reproductive: Vasectomy clips. ABDOMEN and PELVIS: Intraperitoneal space: Unremarkable. No free air. No significant fluid collection. Bones/joints: Degenerative changes of the spine. No acute fracture. No dislocation. Soft tissues: Unremarkable. Vasculature: Unremarkable. No abdominal aortic aneurysm. Lymph nodes: Unremarkable. No enlarged lymph nodes. IMPRESSION: Mild fecal retention, correlate for constipation. Fluid filled small bowel measuring up to 2.9 cm, correlate for enteritis/ileus. No definite bowel obstruction identified however, if symptoms worsen, consider repeat exam with oral contrast. Electronically signed by: Chriss Barkley MD 08/14/23 21:54 PM
[2023-08-14 22:31] LABS: Appearance Urine Clear (Clear); Bacteria Urine Automated Negative (Negative); Bilirubin Urine Negative (Negative); Blood Urine Negative (Negative); Cast Urine Automated 0 /lpf (0-5); Color Urine Dark Yellow; Epithelial Cell Urine Auto 0-5 /lpf (0-5); Glucose Urine UA Negative (Negative); Ketones Urine 2+ (Negative); Leukocyte Esterase Urine Negative (Negative); Nitrite Urine Positive (Negative); Protein Urine Negative (Negative); RBC Urine Automated 0-4 /hpf (0-4); Specific Gravity Urine 1.032 (1.000-1.030); Urobilinogen Urine Negative (Negative)
[2023-08-14] MEDS ORDERED: POTASSIUM CHLORIDE 20 MEQ/15 ML UDC PO STA (22:39)
[2023-08-15] MEDS ORDERED: POTASSIUM CHLORIDE 20 MEQ in LACTATED RINGER'S 1,000 ML IV ONE (00:04)
[2023-08-15 00:25] LABS: Partial Thromboplastin Time 28.5 Seconds (21.0-31.0)
[2023-08-15 00:25] LABS: Magnesium 1.5 mg/dl (1.7-2.4)
[2023-08-15] MEDS ORDERED: SOD PHOSPHATE/SOD BIPHOSPHATE ENEMA 132 ML BTL PR STA (00:41)
[2023-08-15] MEDS ORDERED: MAGNESIUM SULFATE / D5W 1 GM/100 ML BAG IV STA (00:44)
[2023-08-15] MEDS ORDERED: MAGNESIUM SULFATE / D5W 1 GM/100 ML BAG IV ONE (00:55)
[2023-08-15] MEDS ORDERED: KETOROLAC TROMETHAMINE 15 MG/ML VIAL IV ONE (01:02)
[2023-08-15] MEDS ORDERED: cefTRIAXone SODIUM 2,000 MG/50 ML BAG IV STA (01:03)
--- NOTE | 2023-08-15 01:39 | History & Physical Report ---
Date of Service August 15, 2023 Assessment & Plan (1) Sepsis: Plan: Chronic leukopenia with tachycardia Multifactorial: complicated UTI Otitis media left Obstipation symptoms in the setting of progressive disability from ALS, history of IBS as per records Uncontrolled GERD history PE/DVT on Eliquis orthostatic hypotension as per records anxiety/mood disorder/ADD, at baseline Deconditioning post recent COVID illness, improved respiratory symptoms post Paxlovid course Hyperglycemia rule out DM Medical telemetry CS, Ceftriaxone for complicated UTI and otitis media ENT consult for otitis media if without improvement Bowel regimen Increase once daily PPI dose to twice daily dosing PT OT eval Nutrition consult Condom catheter for incontinence symptoms as per request Check hemoglobin A1c DVT prophylaxis. Eliquis Full code Patient requesting updates providers. Ms. Nellie Moffett, contact #[phone]. Text document was generated using Corepair voice recognition software. It may contain grammatical or spelling errors. Kindly contact undersigned for clarification of any documentation item in question. History of Present Illness Chief Complaint: Weakness Primary Care Provider: Keith Cross MD History obtained from patient, family, and records. Medical history significant for history PE/DVT on Eliquis, ALS, orthostatic hypotension as per records, anxiety/mood disorder/ADD, GERD, IBS as per records, chronic back pain. Last [facility] confinement February 2020 for acute saddle PE/DVT. Patient discharged on Eliquis. Recent ER visit 3 weeks ago for cough, GI upset and nausea symptoms attributed to COVID-19 illness. Transient hypotension at the ER. Patient discharged from the ER following hospitalist evaluation. Patient later completed Paxlovid prescription from PCP. Improved cough/congestion symptoms. Increasing generalized weakness since COVID-19 illness. Patient having trouble getting out of bed into his chair. Unable to work. Poor appetite. Denies headache, chest pain, SOB. Worsening GERD symptoms. Achy lower abdominal discomfort with nausea, no emesis. No bowel movement for 5 days which is unusual for him. No improvement with OTC laxatives. Patient also complaining of persistent left ear discomfort/tinnitus attributed to earwax by PCP 2 months ago. Patient unaware of otorrhea symptoms Patient also prescribed topical antibiotic/steroid Rx "to break down the wax" as per . Patient inquiring about medications to make her "stronger and eat better." Condom catheter requested for urinary incontinence symptoms. Patient sent to ER after evaluation by outpatient provider yesterday. 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 Allergies Allergy/AdvReac Type Severity Reaction Status Date / Time tramadol AdvReac Unknown GI Verified 02/12/21 23:43 discomfort Home Medications Medication Instructions Recorded Confirmed Type dextroamphetamine-amphetamine 20 20 mg PO TID 01/31/19 08/15/23 History mg tablet escitalopram oxalate 20 mg tablet 20 mg PO QAM 01/31/19 08/15/23 History omeprazole 20 mg capsule,delayed 20 mg PO QAM 01/31/19 08/15/23 History release apixaban 5 mg tablet (Eliquis) 5 mg PO BID 11/19/20 08/15/23 History mirtazapine 30 mg tablet 15 mg PO HS 02/05/21 08/15/23 History clonazepam 0.5 mg tablet (Klonopin) 0.5 mg PO HS #10 tabs 07/18/22 08/15/23 Rx Benadryl 2 cap PO HS 07/25/23 07/25/23 History gabapentin 100 mg capsule 100 mg PO TID 07/25/23 08/15/23 History hyoscyamine sulfate 0.375 mg 0.375 mg PO BID 07/25/23 08/15/23 History tablet,extended release,12 hr ipratropium 0.5 mg-albuterol 3 mg 3 ml inhalation Q6H PRN WHEEZING 07/25/23 07/25/23 History (2.5 mg base)/3 mL nebulization OR SOB soln ondansetron 4 mg disintegrating 4 mg PO Q6H PRN nausea and 07/25/23 Rx tablet vomiting #14 tabs neomycin 3.5 mg-polymyxin 10,000 08/15/23 History unit-hydrocort 10 mg/mL eye drop,susp Past Med/Surg History Medical History COVID-19 History of pulmonary embolism ADD (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 GERD (gastroesophageal reflux disease) ALS (amyotrophic lateral sclerosis) Surgical History History of vasectomy H/O rhinoplasty S/P left knee arthroscopy Family History Father Pulmonary embolism Mother Hypertension Social History Smoking Status: Never smoker Second Hand Exposure: No; Do You Dip or Chew Tobacco: No; Hx Alcohol Use: Yes Alcohol type: hard liquor Hx Substance Use: No Preferred Language: Macedonian Communication Ability: Effective Architectural Associate Required: No Beliefs That Will Affect Care: None marital status: Current Living Situation: Family current occupational status: employed Feels Safe at Home: Yes Assistive Devices: Walker Review of Systems Review of Systems: As per HPI, all other systems reviewed and negative Physical Exam Physical Exam: GENERAL: Slightly uncomfortable, chronically ill, chronic dysarthria, no respi ratory distress SKIN: Normal color, warm HEENT: [place] palpebral conjunctivae, no ptosis, dry buccal mucosa; : No tragal tenderness, yellow-brown discharge noted at the EAC, TM not fully visualized NECK : Supple, no tenderness CHEST : Decreased breath sounds, no tenderness HEART : RRR, no obvious murmurs ABDOMEN: Some distention, minimal hypogastric tenderness EXTREMITIES : No LE swelling/tenderness, no other conspicuous deformities noted NEUROLOGIC : Coherent, facial asymmetry noted during speech, chronic dysarthria, MMTs; BUE 1/5, BLE 2/5, gait and stance not assessed Results & Data Results & Data Vital Signs (Past 12 Hours) Vital Signs Temp Pulse Pulse Resp BP BP Pulse Ox 08/15/23 00:54 100 H 16 118/87 96 08/14/23 23:44 101 H 08/14/23 22:50 107 H 18 132/92 99 08/14/23 19:26 105 H 08/14/23 19:05 98 08/14/23 19:00 36.9 C 107 H 19 133/88 98 O2 Del Method 08/15/23 00:54 Room Air 08/14/23 23:44 08/14/23 22:50 Room Air 08/14/23 19:26 08/14/23 19:05 Room Air 08/14/23 19:00 Room Air Laboratory Results Laboratory Results WBC 4.33 K/ul (4.8-10.8) L 08/14/23 19: RBC 4.61 M/uL (4.70-6.10) L 08/14/23 19:24 Hgb 13.6 g/dl (14.0-18.0) L 08/14/23 19:24 Hct 42.1 % (42.0-52.0) 08/14/23 19: MCV 91.3 fL (80.0-100.0) 08/14/23 19: MCH 29.5 pg (25.0-34.0) 08/14/23 19: MCHC 32.3 g/dL (32.0-36.0) 08/14/23: RDW Std Deviation 42.8 fL (36.4-46.3) 08/14/23: RDW Coeff of Hussain 13.0 % (11.5-14.5) 08/14/23: Plt Count 215 K/uL (130-400) 08/14/23 19: MPV 11.4 fL (9.4-12.4) 08/14/23 19:24 Immature Gran % (Auto) 0.2 % 08/14/23 19:24 Neut % (Auto) 70.2 % 08/14/23 19:24 Lymph % (Auto) 21.2 % 08/14/23 19:24 [place] % (Auto) 7.2 % 08/14/23 19:24 Eos % (Auto) 0.7 % 08/14/23 19: Baso % (Auto) 0.5 % 08/14/23 19:24 Neut # (Auto) 3.04 K/uL (1.40-6.50) 08/14/23 19:24 Lymph # (Auto) 0.92 K/uL (1.20-3.40) L 08/14/23 19: [place] # (Auto) 0.31 K/uL (0.11-0.59) 08/14/23 19:24 Eos # (Auto) 0.03 K/uL (0.00-0.50) 08/14/23 19:24 Baso # (Auto) 0.02 K/uL (0.00-0.20) 08/14/23 19:24 Immature Gran # (Auto) 0.01 K/uL (0.01-0.20) 08/14/23 19:24 APTT 28.5 Seconds (21.0-31.0) 08/14/23 19:21 PTT Ratio 1.0 08/14/23 19:21 Sodium 140 mmol/L (136-145) 08/14/23 19:24 Potassium 3.1 mmol/L (3.5-5.1) L 08/14/23 19:24 Chloride 110 mmol/L (98-107) H 08/14/23 19:24 Carbon Dioxide 23 mmol/L (21-32) 08/14/23 19:24 Anion Gap 7 (3-11) 08/14/23 19:24 BUN 7 mg/dl (6-23) 08/14/23 19:24 Creatinine < 0.20 mg/dl (0.6-1.4) L 08/14/23 19:24 Est Cr Clr Drug Dosing 539.9 ml/min 08/14/23 19:24 Est GFR ( Amer) > 150.0 ml/min 08/14/23 19:24 Est GFR (Non-Af Amer) > 150.0 ml/min 08/14/23 19:24 BUN/Creatinine Ratio TNP 08/14/23 19:24 Glucose 74 mg/dl (70-99(Fasting)) 08/14/23 19:24 Calcium 7.1 mg/dl (8.6-10.3) L 08/14/23 19:24 Magnesium 1.5 mg/dl (1.7-2.4) L 08/14/23 19:24 Total Bilirubin 0.4 mg/dl (0.2-1.0) 08/14/23 19:24 AST 23 U/L (13-39) 08/14/23 19:24 ALT 22 U/L (7-52) 08/14/23 19:24 Alkaline Phosphatase 52 U/L (34-104) 08/14/23 19:24 Troponin I High Sens 3.0 pg/ml (0-20) 08/14/23 19:24 Total Protein 5.3 gm/dl (6.0-8.3) L 08/14/23 19:24 Albumin 3.0 gm/dl (3.4-5.0) L 08/14/23 19:24 Globulin 2.3 gm/dl (2.5-4.0) L 08/14/23 19:24 Albumin/Globulin Ratio 1.3 (0.9-2) 08/14/23 19:24 Lipase 14 U/L (11-82) 08/14/23 19:24 Urine Color Dark Yellow 08/14/23 Unknown Urine Appearance Clear (Clear) 08/14/23 Unknown Urine pH 5.0 (4.5-7.5) 08/14/23 Unknown Ur Specific [place] 1.032 (1.000-1.030) H 08/14/23 Unknown Urine Protein Negative (Negative) 08/14/23 Unknown Urine Glucose (UA) Negative (Negative) 08/14/23 Unknown Urine Ketones 2+ (Negative) H 08/14/23 Unknown Urine Blood Negative (Negative) 08/14/23 Unknown Urine Nitrite Positive (Negative) A 08/14/23 Unknown Urine Bilirubin Negative (Negative) 08/14/23 Unknown Urine Urobilinogen Negative (Negative) 08/14/23 Unknown Ur Leukocyte Esterase Negative (Negative) 08/14/23 Unknown Urine WBC (Auto) 1-5 /hpf (0-5) 08/14/23 Unknown Urine RBC (Auto) 0-4 /hpf (0-4) 08/14/23 Unknown U Hyaline Cast (Auto) 0 /lpf (0-5) 08/14/23 Unknown U Epithel Cells (Auto) 0-5 /lpf (0-5) 08/14/23 Unknown Urine Bacteria (Auto) Negative (Negative) 08/14/23 Unknown Urine Yeast Not Reportable 08/14/23 Unknown Impressions Abdomen/Pelvis CT 08/14/23 19:05 Exam(s): CT ABDOMEN + PELVIS With Contrast IV Amt: 82 ML OPTIRAY 320 EXAM: CT Abdomen and Pelvis With Intravenous Contrast CLINICAL HISTORY: Reason for exam: abd pain. TECHNIQUE: Axial computed tomography images of the abdomen and pelvis with intravenous contrast. CTDI is 18.42 mGy and DLP is 1055.6 mGy-cm. Automated exposure control was utilized for the study. A dose lowering technique was utilized adhering to the principles of ALARA. CONTRAST: Patient received 82 ML OPTIRAY 320 of IV contrast COMPARISON: No relevant prior studies available. FINDINGS: Lung bases: Unremarkable. No mass. No consolidation. ABDOMEN: Liver: Unremarkable. No focal hepatic lesion. Gallbladder and bile ducts: Unremarkable. No calcified stones. No ductal dilation. Pancreas: Atrophy of the pancreas. No ductal dilation. Spleen: Unremarkable. No splenomegaly. Adrenals: Unremarkable. No mass. Kidneys and ureters: Unremarkable. No hydronephrosis or delayed nephrogram. Stomach and bowel: Mild fecal retention, correlate for constipation. Fluid filled small bowel measuring up to 2.9 cm, correlate for enteritis/ileus. No definite bowel obstruction identified however, if symptoms worsen, consider repeat exam with oral contrast. PELVIS: Appendix: No findings to suggest acute appendicitis. Bladder: Unremarkable. No mass. Reproductive: Vasectomy clips. ABDOMEN and PELVIS: Intraperitoneal space: Unremarkable. No free air. No significant fluid collection. Bones/joints: Degenerative changes of the spine. No acute fracture. No dislocation. Soft tissues: Unremarkable. Vasculature: Unremarkable. No abdominal aortic aneurysm. Lymph nodes: Unremarkable. No enlarged lymph nodes. IMPRESSION: Mild fecal retention, correlate for constipation. Fluid filled small bowel measuring up to 2.9 cm, correlate for enteritis/ileus. No definite bowel obstruction identified however, if symptoms worsen, consider repeat exam with oral contrast. Electronically signed by: Chriss Barkley MD 08/14/23 21:54 PM Diagnostic Findings Chest x-ray as per my interpretation atelectasis, elevated right hemidiaphragm
[2023-08-15] MEDS ORDERED: APIXABAN 5 MG TABLET PO STA (01:44)
[2023-08-15] MEDS ORDERED: DOCUSATE SODIUM/SENNA 50/8.6MG TAB PO STA (01:44)
[2023-08-15] MEDS ORDERED: clonazePAM 0.5 MG TAB PO STA (01:44)
[2023-08-15] MEDS ORDERED: POLYETHYLENE (MIRALAX) 17 GM PACK PO STA (01:44)
[2023-08-15] MEDS ORDERED: ACETAMINOPHEN 325 MG TAB PO PRN (01:50)
[2023-08-15] MEDS ORDERED: POLYETHYLENE (MIRALAX) 17 GM PACK PO PRN (01:50)
[2023-08-15] MEDS ORDERED: PANTOprazole 40 MG TAB PO STA (01:57)
[2023-08-15 04:39] LABS: Basophils # (auto) 0.05 K/uL (0.00-0.20); Eosinophils # (auto) 0.05 K/uL (0.00-0.50); Hematocrit (blood only) 39.2 % (42.0-52.0); Immature Granulocytes # (auto) 0.01 K/uL (0.01-0.20); Immature Granulocytes % (auto) 0.2 %; Lymphocytes # (auto) 1.39 K/uL (1.20-3.40); Lymphocytes % (auto) 26.9 %; Mean Corpuscular Hemoglobin 29.7 pg (25.0-34.0); Mean Corpuscular Hgb Conc 33.2 g/dL (32.0-36.0); Mean Corpuscular Volume 89.5 fL (80.0-100.0); Mean Platelet Volume 11.9 fL (9.4-12.4); Monocytes # (auto) 0.47 K/uL (0.11-0.59); Monocytes % (auto) 9.1 %; Neutrophils # (auto) 3.19 K/uL (1.40-6.50); Neutrophils % (auto) 61.8 %; Platelet Count 233 K/uL (130-400); RDW Coefficient of Variation 13.1 % (11.5-14.5); RDW Standard Deviation 42.9 fL (36.4-46.3); Red Blood Count 4.38 M/uL (4.70-6.10); White Blood Count 5.16 K/ul (4.8-10.8)
[2023-08-15 05:00] LABS: Anion Gap 4 (3-11); BUN Creatinine Ratio 27.3 (10-20); Blood Urea Nitrogen 6 mg/dl (6-23); Calcium 8.2 mg/dl (8.6-10.3); Carbon Dioxide 27 mmol/L (21-32); Chloride 105 mmol/L (98-107); Creatinine Clr Calc Pharmacy 490.8 ml/min; Est GFR (African American) > 150.0 ml/min; Est GFR (Non-African American) > 150.0 ml/min; Glucose 112 mg/dl (70-99(Fasting)); Magnesium 2.5 mg/dl (1.7-2.4); Potassium 4.1 mmol/L (3.5-5.1); Sodium 136 mmol/L (136-145)
[2023-08-15] MEDS ORDERED: LACTULOSE SYRUP 30 GM/45 ML UDP PO STA (05:03)
--- OUTSIDE RECORDS SUMMARY | 2023-08-15 05:05 | External Medical Summary | Summary of Care ---
Author Name Unknown Organization [facility] Address [address] [place] [address] Phone [phone] Care Team Providers Care Needle Polisher Name Role Phone Keith Cross MD Primary Care Provider [phone] Reason for Visit * Reason Onset Date Comments Advice 07/26/2023 Encounter Details Date Type Department Care Team (Late st Contact Info) Description 07/26/2023 Telephone Family Practice [facility] [address] [place] [address] Keith Cross MD [address] [place] [address] Advice Allergies Active Allergy Reactions Criticality Noted Date Comments Tramadol Hcl 12/08/2011 Gi upset documented as of this encounter (statuses as of 07/26/2023) Medications Medication Sig Dispensed Refills Start Date End Date Status escitalopram (LEXAPRO) 10 MG Tablet Take 2 Tablets by mouth in the morning. 0 04/28/2016 Active Amphetamine-Dextro amphetamine 30 MG Tablet Take 1 Tablet by mouth in the morning and 1 Tablet before bedtime. 30mg in the morning and 30 mg at lunch. 0 Active Multiple Vitamins-Minerals (MULTIVITAMIN ADULT) TABS Take by mouth. 0 Active Mirtazapine 30 MG Oral Tablet Take 1 Tablet by mouth at bedtime. 30 Tab 5 04/29/2020 Active Gabapentin 100 MG Oral Capsule (Neurontin) TAKE 1 CAPSULE BY MOUTH TWO TIMES DAILY 0 04/13/2022 Active clonazePAM 0.5 MG Oral Tablet (KlonoPIN) Take 1 Tablet (0.5 mg) by mouth every night at bedtime. 90 Tablet 1 07/18/2022 Active Omeprazole 20 MG Oral Capsule Delayed Release (PriLOSEC)Indicati ons:Gastroesophage al reflux disease without esophagitis 1 daily in the AM 90 Capsule 3 09/29/2022 Active Apixaban 5 MG Oral Tablet (Eliquis) TAKE 1 TABLET BY MOUTH TWO TIMES DAILY 180 Tablet 0 05/17/2023 Active Dicyclomine HCl 10 MG Oral Capsule (Bentyl) TAKE 1 CAPSULE BY MOUTH FOUR TIMES DAILY NEEDED NEEDED FOR DIARRHEA AND ABDOMINAL PAIN 120 Capsule 5 06/19/2023 Active Neomycin-Polymyxin -HC 3.5-49735-5 Otic Solution Administer 4 Drops into ears in the morning and 4 Drops at noon and 4 Drops before bedtime. To affected ear, for 10 days.. 10 mL 1 06/19/2023 Active Hyoscyamine Sulfate ER 0.375 MG Oral Tablet Extended Release 12 Hour (Levbid) Take 1 Tablet by mouth 2 times a day as needed for Cramping. For abdominal pain. Do not cut, crush or chew 60 Tablet 2 06/19/2023 Active Nirmatrelvir&Riton avir 300/100 20 x 150 MG & 10 x 100MG Oral Tablet Therapy Pack (Paxlovid)Indicati ons:COVID-19 Take 2 pink tablets of Nirmatrelvir and 1 white tablet of Ritonavir two times a day by mouth. 30 Tablet 0 07/26/2023 Active HYDROcodone Bit-Homatrop MBr 5-1.5 MG/5ML Oral Solution (Hycodan)Indicatio ns:COVID-19 Take 5 mL by mouth every 6 hours as needed for Cough. 120 mL 0 07/26/2023 Active documented as of this encounter (statuses as of 07/26/2023) Active Problems Problem Noted Date Diagnosed Date Depression with anxiety 06/16/2023 Personal history of DVT (deep vein thrombosis) 0 04/09/2021 History of pulmonary embolism 04/09/2021 ALS (amyotrophic lateral sclerosis) 05/02/2016 Orthostatic hypotension 12/18/2015 GERD (gastroesophageal reflux disease) 6 Irritable bowel syndrome with diarrhea 1 Attention deficit disorder without hyperactivity documented as of this encounter (statuses as of 07/26/2023) Resolved Problems Problem Noted Date Diagnosed Date Resolved Date ALEXA (generalized anxiety disorder) 04/08/2021 06/16/2023 Acute deep vein thrombosis ( DVT) of distal vein of lower extremity 03/03/2020 04/09/2021 Pulmonary embolism 03/03/2020 Hand weakness 12/30/2015 04/08/2021 Chronic maxillary sinusitis 12/18/2015 02/09/2017 Trigger finger 09/15/2015 02/09/2017 Right chronic serous otitis media 09/15/2015 02/09/2017 Penile adhesions 05/22/2015 09/15/2015 Muscle cramps 05/22/2015 09/15/2015 Fatigue 05/11/2015 05/22/2015 Snoring 05/11/2015 09/15/2015 Slow transit constipation 05/11/2015 Strep sore throat 11/14/2014 05/11/2015 Acute sinusitis 10/10/2014 05/11/2015 Dermatitis 03/04/2014 05/11/2015 Vitamin D deficiency 09/24/2013 015 TMJ disease 09/24/2013 04/29/2020 Pain in shoulder 01/25/2013 05/22/2015 Chronic appendicitis 12/05/2012 013 General medical exam 11/07/2012 020 Overview: Sees Dr Rivera--[facility] for cardiovascular condition 11/07/2012 05/22/2015 Nausea 11/07/2012 05/22/2015 Overview: ICD-10 update of inactive term Cervical pain (neck) 11/07/2012 015 Spasm of muscle 11/07/2012 05/22/2015 Left knee pain 05/03/2012 11/07/2012 Back spasm 05/03/2012 11/07/2012 TMJ (temporomandibular joint syndrome) 05/03/2012 11/07/2012 Dizziness - light-headed 02/13/2012 Urticaria 02/13/2012 11/07/2012 Rib pain 12/08/2011 11/07/2012 Acute bronchitis, complicated 11/25/2010 05/26/2011 Malaise and fatigue 01/19/2010 11/07/19 13 Lumbago 01/30/2009 04/08/2021 Other acne 01/30/2009 05/22/2015 Recurrent major depressive d isorder, in full remission 06/16/2023 Overview: ICD-10 update of inactive term documented as of this encounter (statuses as of 07/26/2023) Immunizations Name Administration Dates Next Due COVID-19 mRNA, LNP-s, No Pre serve, 2-Dose Series (Moderna) 02/01/2021,12/28/2020 SEASONAL INFLUENZA, PF, 6 M & Above, IM , (FLULAVAL or FLUZONE) 06/16/2023,07/26/2022,07/09/2021, 0 ,07/05/2018 Season Influenza, Cell Culte r, 18+ Yrs, With Preserv (Flucelvax) 07/25/2013 Seasonal Influenza, Quadriva lent, No Preserve, IM 08/11/2016 Seasonal Influenza, Split, I IV3, With Preserve, Inj 07/24/2014,07/05/2012,06/25/2011, 0 ,05/26/2009 TDAP (age 10 and older)(Boostrix) 09/27/2018 TDAP (age 11 and older)(Adacel) 01/30/2009 documented as of this encounter Social History Tobacco Use Types Packs/Day Years Used Date Smoking Tobacco: Never Smokeless Tobacco: Never Alcohol Use Standard Drinks/Week Comments Yes 0.8 (1 standard drink = 0.6 oz p ure alcohol) rare social PHQ-2 Answer Date Recorded PHQ-2 Score 1 02/26/2020 Hunger Vital Sign Answer Date Recorded Within the past 12 months, y ou worried that your food would run out before you got the money to buy more. Never true 04/20/20 22 Within the past 12 months, t he food you bought just didn't last and you didn't have money to get more. Never true 04/20/2022 Sex and Gender Information Value Date Recorded Sex Assigned at Male 01/03/2019 10:21 AM EDT Gender Identity Male 01/03/2019 10:21 AM EDT Sexual Orientation Straight 01/03/2019 10 :21 AM EDT Job Start Date Occupation Industry Not on file Not on file Not on file documented as of this encounter Miscellaneous Notes * Telephone Encounter - Gee Nathan RN - 07/26/2023 3:00 PM EST Discussed Nellie's previous message with Dr. Cross regarding Paxlovid. Per Dr. Cross, patient doesnot have to take it. Called and spoke with patient's spouse Nellie and informed her of Dr. Cross's previous message andalso of message above. She verbalized understanding. * Telephone Encounter - Alberto Dasilva [facility] - 07/26/2023 2:17 PM EST [facility] the [facility] has to call and verify that patient doesn't have egfr less than 60. And make sure they have an accurate med list. This info was verbally provided to Suleiman ([facility]) so they canfill prescription. Thank you, Suleiman Dasilva, PharmD Clinical Pharmacist [facility] ([facility]) 07/26/23 2:22 PM [phone] * Telephone Encounter - Shannon Harris CPhT - 07/26/2023 2:15 PM EST [employer] calling with questions regarding Paxlovid Rx. Warm transfer to Suleiman Schmidt Thank you, Shannon Harris Tech 1 Assistant Director Of Public Works [facility] ([facility]) (formerly Telepharmacy) 07/26/2023, 2:16 PM * Telephone Encounter - Keith Cross MD - 07/26/2023 2:09 PM EST Paxlovid and Hycodan sent. * Telephone Encounter - Gee Nathan RN - 07/26/2023 1:26 PM EST Received call from patient's spouse Nellie (patient was in background). Please see below: Emergency Department Follow Up: When was patient seen: 07/25/2023 Which ED: [facility] What were they seen for: fever, cough, congestion, body aches, chest pain What testing did they have done: cxr, ekg, lab work, xray , urine tests, and respiratory panel swab What did ED think was wrong (dx): positive covid-19 test Any new medications prescribed: zofran for mucous going down into his stomach; also saline nasal spray; spouse states he was prescribed albuterol nebulizer from [facility] clinic - states nebulizer is giving the patient relief; also states they have suction at home, but have not needed to use that; How is patient feeling today: states patient is experiencing chest pain and body aches from his cough; states patient is taking Tylenol which is helping with fever but not with pain. Patient is requesting pain medication for a few days to get him through while he is coughing Nellie also asking about Paxlovid - she said the hospital told her it can be hard on the GI tract.Nellie said the patient is in a frail spot and does not want to give him anything that will upset his stomach. Nellie said the patient's symptoms started this past Monday07/23/2023. Pharmacy confirmed. Please advise. Nellie can be reached at her mobile number at [phone] documented in this encounter Plan of Treatment Upcoming Encounters Date Type Department Care Team (Late st Contact Info) Description 08/01/2023 11:00 AM EST Telemedicine [facility] [address] [place] [address] Keith Cross MD [address] [place] [id number] 06/17/2024 9:00 AM EDT Office Visit Family Practice [facility] [address] [address] Keith Cross MD [address] [id number] Health Maintenance Due Date Last Done Comments Hepatitis B (1 of 3 - 3-dose series) 1975 Lipid Panel 11/07/2017 11/07/2012 Cologuard 2020 Colonoscopy 2020 Colorectal Cancer Screening 2020 Fecal Occult Blood Test 2020 Sigmoidoscopy 2020 Depression Screening 02/25/2021 02/26/2020 COVID-19 Vaccine (2022- season) 2023 02/01/2021, 12/28/2020 DTaP,Tdap,and Td Vaccines (3 - Td or Tdap) 09/27/2028 09/27/2018, 01/30/2009 Hepatitis C Screening Completed 04/16/2016 Pneumococcal Vaccine: Pediatrics (0 to 5 Years) and At-Risk Patients (6 to 64 Years) Aged Out 12/26/2016 No longer eligible based on patient's age to complete this topic Influenza Vaccine (FLU shot) Completed 02/2023, 07/26/2022, 07/26/2022, Additional history exists GARDASIL-HPV IMMUNIZATION SERIES Aged Out No longer eligible based on patient's age to complete this topic MENINGOCOCCAL (MENACTRA/MENVEO) Aged Out No longer eligible based on patient's age to complete this topic documented as of this encounter Medical Devices Implanted Type Area Silviculture Professor Device Identifier Shelf Expiration Date Model / Serial / Lot Graft Bone Cartilage Costl 6cm - [id number] Implanted:Qty: 1 on 06/22/2016 by Any Tovar MD at [facility] N/A: Nose [employer] 04/16/2021 [id number] / / documented as of this encounter Visit Diagnoses Diagnosis COVID-19- Primary documented in this encounter Advance Directives Latest Code Status on File Code Status Date Activated Date Inactivated Comments Full Code 07/24/2015 7:58 AM 07/24/2015 3:54 PM Thi s order reflects the patients wishes and were consensually agreed upon. Care Teams Needle Polisher Relationship Specialty Start Date End Date Keith Cross MD [address] [place] [id number] PCP - General Family Medicine 03/23/21 documented as of this encounter
--- OUTSIDE RECORDS SUMMARY | 2023-08-15 05:05 | External Medical Summary | Summary of Care ---
Author Name Unknown Organization [facility] Address [address] [place] [address] Phone [phone] Care Team Providers Care Business Continuity Planning Director Name Role Phone Keith Cross MD Primary Care Provider [phone] Reason for Visit * Reason Comments Acute Encounter Details Date Type Department Care Team (Late st Contact Info) Description 08/14/2023 5:00 PM EST Telemedicine [facility] [address] [place] [address] Adin Cox CRNP [address] [place] [address] Post covid-19 condition, unspecified* Allergies Active Allergy Reactions Criticality Noted Date Comments Tramadol Hcl 12/08/2011 Gi upset documented as of this encounter (statuses as of 08/14/2023) Medications Medication Sig Dispensed Refills Start Date [...] the AM 90 Capsule 3 09/29/2022 Active Dicyclomine HCl 10 MG Oral Capsule (Bentyl) TAKE 1 CAPSULE BY MOUTH FOUR TIMES DAILY NEEDED NEEDED FOR DIARRHEA AND ABDOMINAL PAIN 120 Capsule 5 06/19/2023 Active Neomycin-Polymyxin -HC 3.5-68702-0 Otic Solution Administer 4 Drops into ears [...] for Cough. 120 mL 0 07/26/2023 Active Apixaban 5 MG Oral Tablet (Eliquis) TAKE 1 TABLET BY MOUTH TWO TIMES DAILY 180 Tablet 0 08/07/2023 Active documented as of this encounter (statuses as of 08/14/2023) Active Problems Problem Noted Date Diagnosed Date Depression with anxiety 06/16/2023 Personal history of DVT (deep vein thrombosis) 0 04/09/2021 History of pulmonary embolism 04/09/2021 ALS (amyotrophic lateral sclerosis) 05/02/2016 Orthostatic hypotension 12/18/2015 GERD (gastroesophageal reflux disease) 6 Irritable bowel syndrome with diarrhea 1 Attention deficit disorder without hyperactivity documented as of this encounter (statuses as of 08/14/2023) Resolved Problems Problem Noted Date Diagnosed Date [...] as of this encounter (statuses as of 08/14/2023) Immunizations Name Administration Dates Next Due COVID-19 [...] on file documented as of this encounter Progress Notes * Adin Cox CRNP - 08/14/2023 4:56 PM EST Images from the original note were not included. History of Present Illness No chief complaint on file. Patient location: HOME. I was in a hospital or clinic location. After connecting through televideo,patient was verified with two unique identifiers. Patient (or authorized legal sales representative) was then informed that this was a Telemedicine visit and being conducted confidentially over secure lines. Methods to assure confidentiality were taken. Patient acknowledged consent and understanding of pr ivacy and security of the Telemedicine visit. The patient agreed to participate. Brief Clinical History Mr. Moffett is a 48 year old man last seen in Family Medicine 1 month ago (06-16-23). He has h/o ALS (amyotrophic lateral sclerosis) (HCC). Pt was diagnosed with Covid 3 weeks ago. He was [facility] at [facility] where he was diagnosed. Pttook a 5 day course of Paxlovid. He was also using albuterol nebulizer and mucinex at home which gave pt significant improvement as relates to congestion and SOB. However, pt still having a lot of complaints as discussed below. Pt is complaining of fatigue, vertigo, loss of appetite, pain and tingling in the extremities, bodyaches, dehydration, and weakness. Today urinated for the first time in 24 hours. Dark yellow. Pt complains of constipation. Pt had productive cough, sob, and loss of taste but thinks cough has slightly improved. Overall, the patient and his state that they feel overwhelmed by his illness. They feel that they have tried everything and are unable to do anymore than what they have been doing. Patient is progressively getting weaker day by day. Discussed with the patient that should consider hospitalization. There is not much that I can do with the telehealth visit for him at this point. Patient and his agree that they would like to behospitalized. I discussed with them the option of taking the patient in via personal vehicle or calling the ambulance. They feel unable to take the patient in his current condition by personal vehicle. They are planning to call the ambulance. Reviewed last labs Latest Reference Range & Units 09/17/19 15:35 02/20/20 00:00 Sodium 135 - 146 mmol/L 143 Potassium 3.5 - 5.1 mmol/L 4.2 POTASSIUM-OUTSIDE LAB 3.5 - 5.1 MMOL/L 3.9 (E) Chloride 98 - 107 mmol/L 101 CO2 22 - 32 mmol/L 27 BUN 6 - 20 mg/dL 9 Creatinine 0.6 - 1.2 mg/dL 0.8 CREATININE-OUTSIDE LAB 0.6 - 1.4 MG/DL 0.61 (E) Estimated Glomerular Filtration Rate >60 >60.0 EGFR-OUTSIDE LAB ML/MIN/1.73M2 121.5 (E) Anion Gap 7 - 15 mmol/L 15 Glucose 70 - 120 mg/dL 82 GLUCOSE-OUTSIDE LAB 70 - 99 MG/DL 91 (E) Calcium 8.4 - 10.2 mg/dL 10.0 PHOSPHORUS-OUTSIDE LAB 2.5 - 4.9 MG/DL 3.5 (E) Protein 6.0 - 8.3 g/dL 7.3 Folic Acid >4.5 ng/mL >20.0 1,25-DIHYDROXY VITAMIN D Rpt VITD,1,25(OH)2 TOTAL 18 - 72 pg/mL 35 VITD2,1,25(OH)2 pg/mL <8 VITD3,1,25(OH)2 pg/mL 35 TSH 0.27 - 4.2 uIU/mL 0.83 T4, Free 0.9 - 1.7 ng/dL 1.23 CBC WITH WBC DIFFERENTIAL Rpt ! WBC 4.00 - 10.80 K/uL 4.54 RBC 4.50 - 5.25 M/uL 5.61 (H) HGB 14.0 - 16.8 g/dL 17.6 (H) HCT 40.0 - 48.4 % 52.2 (H) PLT 140 - 400 K/uL 231 Vitamin B12 232 - 1,245 pg/mL 446 Albumin 3.8 - 5.0 g/dL 4.6 AST 10 - 50 U/L 33 ALT 10 - 50 U/L 47 Alkaline Phosphatase 0 - 153 U/L 91 Bilirubin, Total 0 - 1.2 mg/dL 0.7 Review of Systems Constitutional: Positive for activity change and fatigue. HENT: Positive for congestion. Eyes: Negative. Respiratory: Positive for shortness of breath. Cardiovascular: Negative. Gastrointestinal: Positive for constipation. Endocrine: Negative. Genitourinary: Positive for decreased urine volume. Musculoskeletal: Positive for myalgias. Skin: Negative. Neurological: Positive for dizziness and weakness. Physical Exam There were no vitals taken for this visit. Unable to do physical exam due to telehealth visit Assessment and Plan (U09.9) Post covid-19 condition, unspecified (primary encounter diagnosis) Plan: The patient has multiple complaints of post COVID syndrome including fatigue, weakness, vertigo, dizziness, loss of appetite, decreased urine output, dehydration. The patient and his are planning to call the ambulance to come to their house and take them [facility] for hospitalization. Wrap-Up Pt is to head to the ER for worsening of post covid symptoms. Pt expresses understanding and satisfaction with plan. Time: I spent a total of 20-29 minutes (exact time 20 mins) on the date of service in preparation, delivery, and documentation of the care provided to Alberto Moffett excluding any time spent in the performance of separately billed services. FREDDIE Marshall documented in this encounter Plan of Treatment Upcoming Encounters Date Type Department Care Team (Late st Contact Info) Description 06/17/2024 9:00 AM EDT Office Visit Family Practice [facility] [address] [place] [address] Keith Cross MD [address] [place] [address] Health Maintenance Due Date Last Done Comments Hepatitis B (1 of 3 - 3-dose series) 1975 Lipid Panel 11/07/2017 11/07/2012 Cologuard 2020 Colonoscopy 2020 Colorectal Cancer Screening 2020 Fecal Occult Blood Test 2020 Sigmoidoscopy 2020 Depression Screening 02/25/2021 02/26/2020 COVID-19 Vaccine (3 - season) 2023 02/01/2021, 12/28/2020 DTaP,Tdap,and Td Vaccines [...] this encounter Medical Devices Implanted Type Area Hazardous Substances Engineer Device Identifier Shelf Expiration Date Model / Serial / Lot Graft Bone Cartilage Costl 6cm - [id number] Implanted:Qty: 1 on 06/22/2016 by Any Tovar MD [place] [facility] [place]: Nose [employer] 04/16/2021 [id number] / / documented as of this encounter Visit Diagnoses Diagnosis Post covid-19 condition, unspecified- Primary documented in this encounter Advance Directives Latest Code Status on File Code Status Date Activated Date Inactivated Comments Full Code 07/24/2015 7:58 AM 07/24/2015 3:54 PM Thi s order reflects the patients wishes and were consensually agreed upon. Care Teams Business Continuity Planning Director Relationship Specialty Start Date End Date Keith Cross MD [address] [facility] [place] [address] PCP - General Family Medicine 03/23/21 documented as of this encounter
--- OUTSIDE RECORDS SUMMARY | 2023-08-15 05:05 | External Medical Summary | Summary of Care ---
Author Name Unknown Organization [facility] Address [address] [place] [address] Phone [phone] Care Team Providers Care Continuity Tester Name Role Phone Keith Cross MD Primary Care Provider [phone] Reason for Visit * Reason Onset Date Comments Advice 07/26/2023 Encounter Details Date Type Department Care Team (Late st Contact Info) Description 07/26/2023 Telephone Family Practice [facility] [address] [place] [address] Keith Cross MD [address] [place] [address] Advice Allergies Active [...] 120 Capsule 5 06/19/2023 Active Neomycin-Polymyxin -HC 3.5-22984-1 Otic Solution Administer 4 Drops into ears [...] encounter Miscellaneous Notes * Telephone Encounter - Alberto Dasilva [facility] - 07/26/2023 2:17 PM EST Per hernandez policy the [facility] has to call and verify that patient doesn't have egfr less than 60. And make sure they have an accurate med list. This info was verbally provided to Suleiman ([facility]) so they canfill prescription. Thank you, Suleiman Dasilva, PharmD Clinical Pharmacist [facility] ([facility]) 07/26/23 2:22 PM [phone] * Telephone Encounter - Shannon Harris CPhT - 07/26/2023 2:15 PM EST [employer] calling with questions regarding Paxlovid Rx. Warm transfer to Suleiman Schmidt Thank you, Shannon Harris, Tech 1 Fly Frame Tender [facility] ([facility]) (formerly Telepharmacy) 07/26/2023, 2:16 PM * Telephone Encounter - Keith Cross MD - 07/26/2023 2:09 PM EST Paxlovid and Hycodan sent. * Telephone Encounter - Gee Nathan RN - 07/26/2023 1:26 PM EST Received call from patient's spouse Nellie (patient was in background). Please see below: Emergency Department Follow Up: When was patient seen: 07/25/2023 Which ED: [facility] ER What were they seen for: fever, [...] states he was prescribed albuterol nebulizer from [facility] clinic - states nebulizer is [...] be reached at her mobile number at [phone] documented in this encounter Plan of Treatment Upcoming Encounters Date Type Department Care Team (Late st Contact Info) Description 08/01/2023 11:00 AM EST Telemedicine Family Practice [facility] [address] [place] [address] Keith Cross MD [address] [place] [address] 06/17/2024 9:00 AM EDT Office Visit Family Practice [facility] [address] [place] [address] Keith Cross MD [address] [place] [address] Health Maintenance Due Date Last Done Comments Hepatitis B (1 of 3 - 3-dose series) 1975 Lipid Panel 11/07/2017 11/07/2012 Cologuard 2020 Colonoscopy 2020 Colorectal Cancer Screening 2020 Fecal Occult Blood Test 2020 Sigmoidoscopy 2020 Depression Screening 02/25/2021 02/26/2020 COVID-19 Vaccine (3 - 2022- season) 2023 02/01/2021, 12/28/2020 DTaP,Tdap,and Td Vaccines [...] this encounter Medical Devices Implanted Type Area Revenue Specialist Device Identifier Shelf Expiration Date Model / Serial / Lot Graft Bone Cartilage Costl 6cm - [id number] Implanted:Qty: 1 on 06/22/2016 by Any Tovar [place] [facility] [place] Nose [employer] 04/16/2021 [id number] / / documented as of this encounter Visit Diagnoses Diagnosis COVID-19- Primary documented in this encounter Advance Directives Latest Code Status on File Code Status Date Activated Date Inactivated Comments Full Code 07/24/2015 7:58 AM 07/24/2015 3:54 PM Thi s order reflects the patients wishes and were consensually agreed upon. Care Teams Continuity Tester Relationship Specialty Start Date End Date Keith Cross MD [address] [place] [address] PCP - General Family Medicine 03/23/21 documented as of this encounter
--- OUTSIDE RECORDS SUMMARY | 2023-08-15 05:05 | External Medical Summary | Summary of Care ---
Author Name Unknown Organization [facility] Address [address] [place] [address] Phone [phone] Care Team Providers Care Juice Standardizer Name Role Phone Jaclyn Gamboa MD Primary Care Provider [phone] Reason for Visit * Reason Comments eRx-Medication Refill Encounter Details Date Type Department Care Team (Late st Contact Info) Description 08/06/2023 Refill Family Practice [facility] [address] [place] [address] Jaclyn Gamboa MD [address] [place] [address] Allergies Active Allergy Reactions Criticality Noted Date Comments Tramadol Hcl 12/08/2011 Gi upset documented as of this encounter (statuses as of 08/07/2023) Medications Medication Sig Dispensed Refills Start Date End Date Status escitalopram (LEXAPRO) 10 MG Tablet Take 2 Tablets by mouth in the morning. 0 6 Active Amphetamine-Dext roamphetamine 30 MG Tablet Take 1 Tablet by mouth in the morning and 1 Tablet before bedtime. 30mg in the morning and 30 mg at lunch. 0 Active Multiple Vitamins-Mineral s (MULTIVITAMIN ADULT) TABS Take by mouth. 0 Active Mirtazapine 30 MG Oral Tablet Take 1 Tablet by mouth at bedtime. 30 Tab 5 0 Active Gabapentin 100 MG Oral Capsule (Neurontin) TAKE 1 CAPSULE BY MOUTH TWO TIMES DAILY 0 2 Active clonazePAM 0.5 MG Oral Tablet (KlonoPIN) Take 1 Tablet (0.5 mg) by mouth every night at bedtime. 90 Tablet 1 2 Active Omeprazole 20 MG Oral Capsule Delayed Release (PriLOSEC)Indica tions:Gastroesop hageal reflux disease without esophagitis 1 daily in the AM 90 Capsule 3 3 Active Dicyclomine HCl 10 MG Oral Capsule (Bentyl) TAKE 1 CAPSULE BY MOUTH FOUR TIMES DAILY NEEDED NEEDED FOR DIARRHEA AND ABDOMINAL PAIN 120 Capsule 5 3 Active Neomycin-Polymyx in-HC 3.5-62817-6 Otic Solution Administer 4 Drops into ears in the morning and 4 Drops at noon and 4 Drops before bedtime. To affected ear, for 10 days.. 10 mL 1 3 Active Hyoscyamine Sulfate ER 0.375 MG Oral Tablet Extended Release 12 Hour (Levbid) Take 1 Tablet by mouth 2 times a day as needed for Cramping. For abdominal pain. Do not cut, crush or chew 60 Tablet 2 3 Active Nirmatrelvir&Rit onavir 300/100 20 x 150 MG & 10 x 100MG Oral Tablet Therapy Pack (Paxlovid)Indica tions:COVID-19 Take 2 pink tablets of Nirmatrelvir and 1 white tablet of Ritonavir two times a day by mouth. 30 Tablet 0 3 Active HYDROcodone Bit-Homatrop MBr 5-1.5 MG/5ML Oral Solution (Hycodan)Indicat ions:COVID-19 Take 5 mL by mouth every 6 hours as needed for Cough. 120 mL 0 3 Active Apixaban 5 MG Oral Tablet (Eliquis) TAKE 1 TABLET BY MOUTH TWO TIMES DAILY 180 Tablet 0 3 Active Apixaban 5 MG Oral Tablet (Eliquis) TAKE 1 TABLET BY MOUTH TWO TIMES DAILY 180 Tablet 0 3 08/07/20 23 Discontinued documented as of this encounter (statuses as of 08/07/2023) Active Problems Problem Noted Date Diagnosed Date Depression with anxiety 06/16/2023 Personal history of DVT (deep vein thrombosis) 0 04/09/2021 History of pulmonary embolism 04/09/2021 ALS (amyotrophic lateral sclerosis) 05/02/2016 Orthostatic hypotension 12/18/2015 GERD (gastroesophageal reflux disease) 6 Irritable bowel syndrome with diarrhea 1 Attention deficit disorder without hyperactivity documented as of this encounter (statuses as of 08/07/2023) Resolved Problems Problem Noted Date Diagnosed Date Resolved Date ALEXA (generalized anxiety disorder) 04/08/2021 06/16/2023 Acute deep vein thrombosis ( DVT) of distal vein of lower extremity 03/03/2020 04/09/2021 Pulmonary embolism 03/03/2020 1 Hand weakness 12/30/2015 04/08/2021 Chronic maxillary sinusitis [...] as of this encounter (statuses as of 08/07/2023) Immunizations Name Administration Dates Next Due COVID-19 mRNA, LNP-s, No Pre serve, 2-Dose Series (Moderna) 02/01/2021,12/28/2020 SEASONAL INFLUENZA, PF, 6 M & Above, IM , (FLULAVAL or FLUZONE) 06/16/2023,07/26/2022,07/09/2021, 0 ,07/05/2018 Season Influenza, Cell Culte r, 18+ Yrs, With Preserv (Flucelvax) 07/25/2013 Seasonal Influenza, Quadriva lent, No Preserve, IM 08/11/2016 Seasonal Influenza, Split, I IV3, With Preserve, Inj 07/24/2014,07/05/2012,06/25/2011, 0 10,05/26/2009 TDAP (age 10 and older)(Boostrix) 09/27/2018 TDAP [...] encounter Miscellaneous Notes * Telephone Encounter - Jaclyn Gamboa MD - 08/07/2023 12:59 PM ESTSigned Prescriptions: Disp Refills Apixaban 5 MG Oral Tablet (Eliquis) 180 Ta*0 Sig: TAKE 1 TABLET BY MOUTH TWO TIMES DAILY Authorizing Provider: JACLYN GAMBOA * Telephone Encounter - Tiffanie Streeter [facility] - 08/07/2023 12:21 PM EST Pending Prescriptions: Disp Refills Eliquis 5 MG Oral Tablet [Pharmacy Med Nam*180 Ta*0 Sig: TAKE 1 TABLET BY MOUTH TWO TIMES DAILY * Telephone Encounter - Tiffanie Streeter RP - 08/07/2023 12:19 PM EST Unable to authorize medication refills for pended medication(s) at this time. Part of the protocol criteria used for refill authorization was not satisfied. Patient needs labs within last year. Last Labs were 02/2020. CMP and CBC on order. Please approve if appropriate. Thank you, Tiffanie Streeter [facility] Clinical Pharmacist Centralized Clinical Pharmacy Services (CCPS) (formerly Telepharmacy) 08/07/23 12:19 PM [phone] * Telephone Encounter - Tiffanie Streeter RPh - 08/07/2023 12:19 PM EST Did you pend patient's preferred pharmacy and medication before forwarding?yes Pharmacy: [id number] [place] [address] [place] Pending Prescriptions: Disp Refills Apixaban 5 MG Oral Tablet (Eliquis) [Phar*180 Ta*0 Sig: TAKE 1 TABLET BY MOUTH TWO TIMES DAILY Last Visit: 06/16/2023 (in office), 04/29/2020 (telemedicine) Next Visit: 06/17/2024 If no future appointments scheduled, and last appointment is greater than a year ago, please schedule patient for a follow-up appointment Last date the medication was ordered: 05/17/2023 Is this request for a controlled substance?No Urine Drug Screen:No results found for this or any previous visit. Patient Phone Numbers Labs: Lab Results Component Value Date/Time CREAT 0.61 02/20/2020 12:00 AM CREAT 0.8 09/17/2019 03:35 PM POTASSIUM 3.9 02/20/2020 12:00 AM POTASSIUM 4.2 09/17/2019 03:35 PM TSH 0.83 09/17/2019 03:35 PM LDLCALC 104 11/07/2012 09:32 AM LDLDIRECT NOT APPLICABLE 11/07/2012 09:32 AM ALT 47 09/17/2019 03:35 PM documented in this encounter Plan of Treatment Upcoming Encounters Date Type Department Care Team (Late st Contact Info) Description 06/17/2024 9:00 AM EDT Office Visit [facility] [address] [address] Jaclyn Gamboa MD [address] [place] [place] [address] Health Maintenance Due Date Last Done Comments [...] this encounter Medical Devices Implanted Type Area Meat And Seafood Clerk Device Identifier Shelf Expiration Date Model / Serial / Lot Graft Bone Cartilage Costl 6cm - [id number] Implanted:Qty: 1 on 06/22/2016 by Any Tovar MD at [place] [facility] [place]A: Nose [employer] 04/16/2021 [id number] / / documented as of this encounter Advance Directives Latest Code Status on File Code Status Date Activated Date Inactivated Comments Full Code 07/24/2015 7:58 AM 07/24/2015 3:54 PM Thi s order reflects the patients wishes and were consensually agreed upon. Care Teams Juice Standardizer Relationship Specialty Start Date End Date Jaclyn Gamboa MD [address] [place] [address] PCP - General Family Medicine 03/23/21 documented as of this encounter
--- OUTSIDE RECORDS SUMMARY | 2023-08-15 05:05 | External Medical Summary | Summary of Care ---
Author Name Unknown Organization [facility] Address [address] [place] [address] Phone [phone] Care Team Providers Care Teacher Of The Deaf/Hard Of Hearing Name Role Phone Keith Cross MD Primary Care Provider [phone] Reason for Visit * Reason Onset Date Comments Advice 08/14/2023 Encounter Details Date Type Department Care Team (Late st Contact Info) Description 08/14/2023 Telephone Family Practice [facility] [address] [facility] [place] [address] Keith Cross MD [address] [facility] [place] [address] Advice Allergies Active Allergy Reactions Criticality [...] 120 Capsule 5 06/19/2023 Active Neomycin-Polymyxin -HC 3.5-85390-9 Otic Solution Administer 4 Drops into ears [...] encounter Miscellaneous Notes * Telephone Encounter - Ruby Mcclain OSA - 08/14/2023 8:36 AM EST Patient gave verbal permission to speak with his advise good for today only. documented in this encounter Plan of Treatment Upcoming Encounters Date Type Department Care Team (Late st Contact Info) Description 08/15/2023 9:00 AM EST Telemedicine [facility] [address] [facility] [place] [address] Liliya Beltran MD [address] [facility] [place] [address] 06/17/2024 9:00 AM EDT Office Visit [facility] [address] [place] [address] Keith Cross MD [address] [place] [address] Health Maintenance Due Date Last Done Comments Hepatitis B (1 of 3 - 3-dose series) 1975 Lipid Panel 11/07/2017 11/07/2012 Cologuard 2020 Colonoscopy 2020 Colorectal Cancer Screening 2020 Fecal Occult Blood Test 2020 Sigmoidoscopy 2020 Depression Screening 02/25/2021 02/26/2020 COVID-19 Vaccine ( season) 2023 02/01/2021, 12/28/2020 DTaP,Tdap,and Td Vaccines [...] this encounter Medical Devices Implanted Type Area Ironmolder Device Identifier Shelf Expiration Date Model / Serial / Lot Graft Bone Cartilage Costl 6cm - [id number] Implanted:Qty: 1 on 06/22/2016 by Any Tovar MD at OR [facility] [place] N/A: Nose [employer] 04/16/2021 [id number] / / documented as of this encounter Advance Directives Latest Code Status on File Code Status Date Activated Date Inactivated Comments Full Code 07/24/2015 7:58 AM 07/24/2015 3:54 PM Thi s order reflects the patients wishes and were consensually agreed upon. Care Teams Teacher Of The Deaf/Hard Of Hearing Relationship Specialty Start Date End Date Keith Cross MD [address] [place] [address] PCP - General Family Medicine 03/23/21 documented as of this encounter
--- OUTSIDE RECORDS SUMMARY | 2023-08-15 05:06 | External Medical Summary | Summary of Care ---
Author Name Unknown Organization [facility] Address [address] [place] [address] Phone [phone] Care Team Providers Care Grinding Wheel Facer Name Role Phone Keith Cross MD Primary Care Provider [phone] Reason for Visit * Reason Onset Date Comments Advice 07/26/2023 Encounter Details Date Type Department Care Team (Late st Contact Info) Description 07/26/2023 Telephone Family Practice [facility] [address] [place] [id number] Keith Cross MD [address] [place] [address] Advice Allergies Active [...] 120 Capsule 5 06/19/2023 Active Neomycin-Polymyxin -HC [id number] Otic Solution Administer 4 Drops into ears [...] Notes * Telephone Encounter - Alberto Dasilva [facility] - 07/26/2023 2:17 PM EST Per hernandez policy the [facility] has to call and verify that patient doesn't have egfr less than 60. And make sure they have an accurate med list. This info was verbally provided to Suleiman ([facility]) so they canfill prescription. Thank you, Suleiman Dasilva, PharmD Clinical Pharmacist [facility] ([facility]) 07/26/23 2:22 PM [phone] * Telephone Encounter - Shannon Harris CPhT - 07/26/2023 2:15 PM EST [employer] calling with questions regarding Paxlovid Rx. Warm transfer to Suleiman Schmidt Thank you, Shannon Harris, Tech 1 Maintenance Apprentice [facility] ([facility]) (formerly Telepharmacy) 07/26/2023, 2:16 PM * Telephone Encounter - Keith Cross MD - 07/26/2023 2:09 PM EST Paxlovid and Hycodan sent. * Telephone Encounter - Gee Nathan RN - 07/26/2023 1:26 PM EST Received call from patient's spouse Nellie (patient was in background). Please see below: Emergency Department Follow Up: When was patient seen: 07/25/2023 Which ED: [facility] ER What were they seen for: fever, [...] states he was prescribed albuterol nebulizer from [facility] clinic - states nebulizer is giving the [...] be reached at her mobile number at [phone] documented in this encounter Plan of Treatment Upcoming Encounters Date Type Department Care Team (Late st Contact Info) Description 08/01/2023 11:00 AM EST Telemedicine Family Practice [facility] [address] [place] [id number] Keith Cross MD [address] [place] [id number] 06/17/2024 9:00 AM EDT Office Visit Family Practice [facility] [address] [place] [address] Keith Cross MD [address] [place] [id number] Health Maintenance Due Date Last Done Comments [...] this encounter Medical Devices Implanted Type Area Senior Sql Server D[employer] Device Identifier Shelf Expiration Date Model / Serial / Lot Graft Bone Cartilage Costl 6cm - [id number] Implanted:Qty: 1 on 06/22/2016 by Any Tovar MD at OR [facility] N/A: Nose [employer] 04/16/2021 [id number] / / documented as of this encounter Visit Diagnoses Diagnosis COVID-19- Primary documented in this encounter Advance Directives Latest Code Status on File Code Status Date Activated Date Inactivated Comments Full Code 07/24/2015 7:58 AM 07/24/2015 3:54 PM Thi s order reflects the patients wishes and were consensually agreed upon. Care Teams Grinding Wheel Facer Relationship Specialty Start Date End Date Keith Cross MD [address] [place] [id number] PCP - General Family Medicine 03/23/21 documented as of this encounter
[2023-08-15 05:57] LABS: Thyroid Stimulating Hormone 1.382 uIu/ml (0.300-4.500)
--- NOTE | 2023-08-15 08:01 | XRay Report ---
SINGLE VIEW CHEST CLINICAL HISTORY: Generalized weakness FINDINGS: An AP, portable, upright chest radiograph is compared to study dated 07/25/2023. The cardio mediastinal silhouette is unremarkable. There is chronic elevation of the right hemidiaphragm and mil d bibasilar atelectasis. Chronic interstitial thickening is similar to previous. The lungs and pleura l spaces are otherwise clear. No pneumothorax is seen. The skeletal structures are osteopenic. The [place] thorax is grossly intact. IMPRESSION: No active disease in the chest. ACT 112: Negative or not required by law. Electronically signed by: Jose Ellington M.D. 08/15/2023 8:00 AM
[2023-08-15 08:52] LABS: Estimated Average Glucose 91 mg/dl; Hemoglobin A1C 4.8 % (4.5-5.6)
[2023-08-15] MEDS ORDERED: NON-FORMULARY MEDICATION (Omeprazole 20 mg capsule,delayed release(DR/EC)) PO SCH (09:00)
[2023-08-15] MEDS ORDERED: GABAPENTIN 100 MG CAP PO SCH (09:00)
[2023-08-15] MEDS: AMPHETAMINE ASP/SULF/DEXTRAMPH 20 MG TAB PO SCH ×3 (09:15→20:47)
[2023-08-15] MEDS: DOCUSATE SODIUM/SENNA 50/8.6MG TAB PO SCH (09:16)
[2023-08-15] MEDS: ESCITALOPRAM OXALATE 20 MG TAB PO SCH (09:16)
[2023-08-15] MEDS: APIXABAN 5 MG TABLET PO SCH ×2 (09:16→20:45)
--- NOTE | 2023-08-15 10:36 | Hospitalist Progress Note ---
Date of Service August 15, 2023 Assessment & Plan (1) Sepsis: Plan: Has chronic leukopenia and tachycardia. Questionable SIRS vs sepsis. Pt felt he may have an ear infection. No pain there, has been hot and cold historically wtih ALS and no clear, billie fever recently. Doubt bacterial ear infection. Also now with questionable GI infection and UA without bacteria but UCx shows Staph species. No known h/o MRSA infection in the past. Cont Rocephin pending culture results and clinical improvement. (2) Abdominal pain: Plan: improved, uncertain if this is related to viral GI illness, but there is no diarrhea and he is now reporting an improvement in his appetite after rehydration efforts overnight. Cont IVF for now. Has a h/o IBS. Cont dicyclomine per home regimen. (3) Neuropathy: Plan: Some intermittent neuropathy of the soles of feet in the past, notably more consistent since recent covid illness. Was on gabapentin 100mg PO TID but not improved. Increase this to 300mg PO TID. Lidocaine patches as needed. Also TSH normal, no evidence of DMII on A1C screening, B12 and folate are WNL, and no evidence of iron deficiency. Vit D was low, however, replacement started. Cont to titrate gabapentin to effect as tolerated. (4) ALS (amyotrophic lateral sclerosis): Plan: chronic, stable. Cont current therapy. Support weakness and turn q2h. Wheelchair bound at baseline. (5) ADD (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: Plan: chronic, stable. Cont Adderall per home regimen. (6) History of pulmonary embolism: Plan: chronic, stable. Continues on apixaban (7) Vitamin D deficiency: Plan: 25 OH Level 12. Ergocalciferol started. Cont 50K units once weekly x 12 weeks as outpatient. DVT prophylaxis. Eliquis Full code Dispo-pending clinical improvement. I spent a total of 60minutes coordinating, documenting, and providing care for this patient excluding time spent in the performance of separately billed services Shira Keating DO [facility] Hospitalist Admission and Anticipated Discharge Date Admission Date: August 15, 2023 Subjective 48-year-old ALS patient presents with worsening neuropathy of the feet. Also noted some abdominal discomfort. Poor p.o. intake prompted a CT abdomen pelvis that revealed a possible fluid-filled small bowel and questionable enteritis. Patient denies any nausea or vomiting. He is feeling better this morning after IV fluids overnight. He was started on Rocephin out of consideration for sepsis. Patient reports no ear pain but feels he may have an ear infection on the left. reports excessive cerumen present that she is treating with drops and irrigation at home. assists with the history at bedside. Outpatient records were reviewed. Physical Exam Physical Exam: CONSTITUTIONAL: WNWD, vitals as above, generally well-appearing, NAD EYES: normal conjunctivae, no scleral icterus ENT: external ear and nose normal, TM clear on the left, external cerumen present on the right, MMM NECK: trachea midline RESPIRATORY: clear to auscultation bilaterally, no crackles, rales or wheezes, normal respiratory effort CARDIOVASCULAR: regular rate and rhythm, S1 and 2 heard without murmurs, gallops or rubs, no JVD, no peripheral edema CHEST: inspection of chest was normal GASTROINTESTINAL: soft, nontender, ND, no guarding MUSCULOSKELETAL: strength 5/5 throughout but limited range of motion and patient is wheelchair bound at baseline, gait not assessed as a result, head is normocephalic and atraumatic, SKIN: warm and dry NEUROLOGIC: patellar DTRs 2+ bilat. PERRL, EOMI, no facial palsy, no dysarthria. Touch, pain and proprioception normal. CN 2-12 grossly intact, no sensory deficit, normal cognition, normal speech, no tremor PSYCHIATRIC: alert cooperative and oriented to person, place and time. Euthymic mood, makes good eye contact, language grossly intact, recent and remote memory grossly intact. Results & Data Results & Data Vital Signs (Past 12 Hours) Vital Signs Pulse Pulse Resp BP BP Pulse Ox O2 Del Method 08/15/23 07:16 85 08/15/23 06:00 92 H 18 116/86 97 Room Air 08/15/23 05:00 84 14 102/82 94 Room Air 08/15/23 04:00 88 15 102/77 98 Room Air 08/15/23 03:00 91 H 15 112/82 98 Room Air 08/15/23 02:47 92 H 16 114/83 98 Room Air 08/15/23 00:54 100 H 16 118/87 96 Room Air 08/14/23 23:44 101 H 08/14/23 22:50 107 H 18 132/92 99 Room Air Laboratory Results Short CBC 08/14/23 08/15/23 Range/Units 19:24 03:42 WBC 4.33 L 5.16 (4.8-10.8) K/ul Hgb 13.6 L 13.0 L (14.0-18.0) g/dl Hct 42.1 39.2 L (42.0-52.0) % Plt Count 215 233 (130-400) K/uL BMP 08/14/23 08/15/23 19:24 03:42 Sodium 140 136 Potassium 3.1 L 4.1 D Chloride 110 H 105 Carbon Dioxide 23 27 BUN 7 6 Creatinine < 0.20 L 0.22 L Glucose 74 112 H Calcium 7.1 L 8.2 L Liver Function 08/14/23 Range/Units 19:24 Total Bilirubin 0.4 (0.2-1.0) mg/dl AST 23 (13-39) U/L ALT 22 (7-52) U/L Alkaline Phosphatase 52 (34-104) U/L Albumin 3.0 L (3.4-5.0) gm/dl Urine 08/14/23 Range/Units Unknown Urine Color Dark Yellow Urine Appearance Clear (Clear) Urine pH 5.0 (4.5-7.5) Ur Specific [place] 1.032 H (1.000-1.030) Urine Protein Negative (Negative) Urine Glucose (UA) Negative (Negative) Diagnostic Findings Chest X-Ray 08/14/23 19:05 SINGLE VIEW CHEST CLINICAL HISTORY: Generalized weakness FINDINGS: An AP, portable, upright chest radiograph is compared to study dated 07/25/2023. The cardiomediastinal silhouette is unremarkable. There is chronic elevation of the right hemidiaphragm and mild bibasilar atelectasis. Chronic interstitial thickening is similar to previous. The lungs and pleural spaces are otherwise clear. No pneumothorax is seen. The skeletal structures are osteopenic. The bony thorax is grossly intact. IMPRESSION: No active disease in the chest. ACT 112: Negative or not required by law. Electronically signed by: Jose Ellington M.D. 08/15/2023 8:00 AM Medications Administered Current Inpatient Medications Acetaminophen (Acetaminophen 325 Mg Tab) 650 mg PO QID PRN PRN Reason: pain/fever Stop: 09/14/23 01:49 Acetaminophen/Codeine Phosphate (Acetaminophen W/Codeine #3 1 Tab) 1 tab PO QID PRN PRN Reason: pain not relieved by tylenol Stop: 09/14/23 01:49 Amphetamine/Dextroamphetamine (Amphetamine Asp/Sulf/Dextramph 20 Mg Tab) 20 mg PO TID [facility] Stop: 08/29/23 08:59 Last Admin: 08/15/23 09:15 Dose: 20 mg Apixaban (Apixaban 5 Mg Tablet) 5 mg PO BID [facility] Stop: 09/14/23 08:59 Last Admin: 08/15/23 09:16 Dose: 5 mg Clonazepam (Clonazepam 0.5 Mg Tab) 0.5 mg PO [facility] Stop: 09/14/23 20:59 Escitalopram Oxalate (Escitalopram Oxalate 20 Mg Tab) 20 mg PO QAM [facility] Stop: 09/14/23 08:59 Last Admin: 08/15/23 09:16 Dose: 20 mg Gabapentin (Gabapentin 100 Mg Cap) 100 mg PO TID [facility] Stop: 09/14/23 08:59 Last Admin: 08/15/23 09:16 Dose: 100 mg Potassium Chloride 20 meq/ (Lactated Ringer's) 1,010 mls @ 75 mls/hr IV .[id number] ONE Stop: 08/15/23 13:23 Last Admin: 08/15/23 02:27 Dose: 75 mls/hr Ceftriaxone Sodium 2,000 mg/ (Dextrose) 70 mls @ 100 mls/hr IV Q24H [facility]; Protocol Stop: 08/26/23 01:59 Mirtazapine (Mirtazapine Tab 15 Mg Tab) 15 mg PO [facility] Stop: 09/14/23 20:59 Pantoprazole Sodium (Pantoprazole 40 Mg Tab) 40 mg PO BID [facility] Stop: 09/14/23 20:59 Polyethylene Glycol (Polyethylene (Miralax) 17 Gm Pack) 17 gm PO DAILY PRN PRN Reason: Constipation Stop: 09/14/23 01:49 Senna/Docusate Sodium (Docusate Sodium/Senna 50/8.6mg Tab) 1 tab PO QAM [facility] Stop: 09/14/23 08:59 Last Admin: 08/15/23 09:16 Dose: 1 tab (2) Abdominal pain Abdominal location: unspecified location Qualified Code(s): R10.9 - Unspecified abdominal pain
[2023-08-15] MEDS ORDERED: ONDANSETRON 4 MG OD TAB PO PRN (13:02)
[2023-08-15 13:56] LABS: C Reactive Protein < 0.50 mg/dl (0-0.5); Iron 69 mcg/dl (35-175); Unsaturated Iron Binding Cap 141 mcg/dl (155-355)
[2023-08-15 14:13] LABS: Ferritin 165.3 ng/ml (8-388); Folate (Folic Acid),Ser orPlas 8.65 ng/ml (>5.38)
[2023-08-15] MEDS: DICYCLOMINE HCL 10 MG CAP PO SCH ×2 (14:29→20:47)
[2023-08-15] MEDS: NEOMYCIN/POLYMYX/HYDROCORT OT SOLN 10 ML BTL OT SCH ×2 (14:30→20:51)
[2023-08-15] MEDS: GABAPENTIN 300 MG CAP PO SCH ×2 (14:30→20:47)
[2023-08-15] MEDS ORDERED: SODIUM CHLORIDE 0.9% 1,000 ML IV SCH (20:15)
[2023-08-15] MEDS: MIRTAZAPINE TAB 15 MG TAB PO SCH (20:46)
[2023-08-15] MEDS: HYOSCYAMINE SULFATE 0.375 MG TABCR PO SCH (20:47)
[2023-08-15] MEDS: clonazePAM 0.25 MG TAB PO SCH (20:48)
[2023-08-15] MEDS: PANTOprazole 40 MG TAB PO SCH (20:49)
[2023-08-15] MEDS ORDERED: clonazePAM 0.5 MG TAB PO SCH (21:00)
[2023-08-16] MEDS ORDERED: cefTRIAXone SODIUM 2,000 MG in DEXTROSE 5% 50 ML IV SCH (02:00)
[2023-08-16] MEDS: ACETAMINOPHEN W/CODEINE #3 1 TAB PO PRN ×3 (04:06→22:54)
--- NOTE | 2023-08-16 04:37 | Communication Note ---
Date of Service: August 16, 2023 Patient with increased junky cough symptoms not present on admission yesterday. Possibly associated with reflux as per RN. Chest x-ray as per my interpretation no obvious infiltrate, elevated right hemidiaphragm COVID-19 swab positive AP Junky cough symptoms possible aspiration pneumonitis ? COVID rebound, history Paxlovid intake Unasyn in place of ceftriaxone (latter antibiotic currently being given for UTI, otitis media) Aspiration precautions, SOAPSTONER eval COVID-19 precautions for now
[2023-08-16] MEDS ORDERED: FAMOTIDINE 20 MG in SYRINGE 3 ML IV ONE (04:45)
[2023-08-16 05:26] LABS: Influenza A virus by PCR Negative (Neg); Influenza B virus by PCR Negative (Neg); RSV by PCR Negative (Neg)
[2023-08-16] MEDS: AMPICILLIN/SULBACTAM SOD 3,000 MG in SODIUM CHLOR 0.9% MINI-B 100 ML IV SCH ×4 (05:31→22:26)
[2023-08-16 05:44] LABS: SARS CoV2 RNA(COVID-19) Ceph POSITIVE (Negative)
[2023-08-16 06:58] LABS: Hematocrit (blood only) 40.7 % (42.0-52.0); Hemoglobin 13.2 g/dl (14.0-18.0); Mean Corpuscular Hemoglobin 29.9 pg (25.0-34.0); Mean Corpuscular Hgb Conc 32.4 g/dL (32.0-36.0); Mean Corpuscular Volume 92.3 fL (80.0-100.0); Mean Platelet Volume 11.6 fL (9.4-12.4); Platelet Count 206 K/uL (130-400); RDW Coefficient of Variation 13.2 % (11.5-14.5); RDW Standard Deviation 44.6 fL (36.4-46.3); Red Blood Count 4.41 M/uL (4.70-6.10); White Blood Count 6.19 K/ul (4.8-10.8)
[2023-08-16 07:30] LABS: Anion Gap 6 (3-11); BUN Creatinine Ratio 21.9 (10-20); Blood Urea Nitrogen 7 mg/dl (6-23); Calcium 8.4 mg/dl (8.6-10.3); Carbon Dioxide 27 mmol/L (21-32); Chloride 106 mmol/L (98-107); Creatinine Clr Calc Pharmacy 273.1 ml/min; Est GFR (African American) > 150.0 ml/min; Est GFR (Non-African American) > 150.0 ml/min; Glucose 84 mg/dl (70-99(Fasting)); Potassium 3.9 mmol/L (3.5-5.1); Sodium 139 mmol/L (136-145)
--- NOTE | 2023-08-16 07:55 | Hospitalist Progress Note ---
Date of Service August 16, 2023 Assessment & Plan (1) Sepsis: Plan: Has chronic leukopenia and tachycardia. Questionable SIRS vs sepsis. Pt felt he may have an ear infection. No pain there, has been hot and cold historically wtih ALS and no clear, billie fever recently. Doubt bacterial ear infection. Also now with questionable GI infection and UA without bacteria but UCx shows Staph species. No known h/o MRSA infection in the past. Cont Rocephin pending culture results and clinical improvement. (2) Abdominal pain: Plan: improved, uncertain if this is related to viral GI illness, but there is no diarrhea and he is now reporting an improvement in his appetite after rehydration efforts overnight. Has a h/o IBS. Cont dicyclomine per home regimen. (3) Neuropathy: Plan: Some intermittent neuropathy of the soles of feet in the past, notably more consistent since recent covid illness. Was on gabapentin 100mg PO TID but not improved. Increase this to 300mg PO TID. Lidocaine patches as needed. Also TSH normal, no evidence of DMII on A1C screening, B12 and folate are WNL, and no evidence of iron deficiency. Vit D was low, however, replacement started. Cont to titrate gabapentin to effect as tolerated. (4) ALS (amyotrophic lateral sclerosis): Plan: chronic, stable. Cont current therapy. Support weakness and turn q2h. Wheelchair bound at baseline. (5) ADD (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: Plan: chronic, stable. Cont Adderall per home regimen. (6) History of pulmonary embolism: Plan: chronic, stable. Continues on apixaban (7) Vitamin D deficiency: Plan: 25 OH Level 12. Ergocalciferol started. Cont 50K units once weekly DVT prophylaxis. Eliquis Full code Dispo-pending clinical improvement. Admission and Anticipated Discharge Date Admission Date: August 15, 2023 Subjective 48-year-old ALS patient presents with worsening neuropathy of the feet. Also noted some abdominal discomfort. Poor p.o. intake prompted a CT abdomen pelvis that revealed a possible fluid-filled small bowel and questionable enteritis. Patient denies any nausea or vomiting. Currently laying in bed in NAD, reports feeling much better since coming to the hospital. He was started on Rocephin out of consideration for sepsis. Pt's also present at the bedside and helps w/ hx. Currently no fever, chills, chest pain, shortness of breath or abd. pain. Overnight reportedly w/ increased cough however pt states he feels well. CXR obtained by rodding anode worker - no signs of pna. Review of Systems Review of Systems: All systems reviewed & are unremarkable except as noted in Subjective Physical Exam Physical Exam: CONSTITUTIONAL: WNWD, M in NAD EYES: normal conjunctivae, no scleral icterus ENT: external ear and nose normal, MMM NECK: supple RESPIRATORY: clear to auscultation bilaterally, no crackles, rales or wheezes, normal respiratory effort CARDIOVASCULAR: regular rate and rhythm, S1 and 2 heard without murmurs CHEST: inspection of chest was normal GASTROINTESTINAL: soft, nontender, ND, no guarding MUSCULOSKELETAL: strength 5/5 throughout but limited range of motion and patient is wheelchair bound at baseline, gait not assessed as a result, head is normocephalic and atraumatic, SKIN: warm and dry NEURO/PSYCH: alert cooperative and oriented to person, place and time. Euthymic mood, normal cognition, normal speech, no tremor Results & Data Results & Data Vital Signs (Past 12 Hours) Vital Signs Temp Pulse Pulse Resp BP Pulse Ox O2 Del Method 08/16/23 07:15 36.8 C 102 H 16 131/87 94 Room Air 08/16/23 04:29 36.6 C 98 H 20 119/75 98 Room Air 08/16/23 00:43 36.6 C 101 H 20 129/86 98 Room Air 08/15/23 22:01 109 H 08/15/23 20:00 Room Air Laboratory Results 08/16/23 08/16/23 08/15/23 Range/Units 06:03 04:44 03:42 WBC 6.19 (4.8-10.8) K/ul RBC 4.41 L (4.70-6.10) M/uL Hgb 13.2 L (14.0-18.0) g/dl Hct 40.7 L (42.0-52.0) % MCV 92.3 (80.0-100.0) fL MCH 29.9 (25.0-34.0) pg MCHC 32.4 (32.0-36.0) g/dL RDW Std Deviation 44.6 (36.4-46.3) fL RDW Coeff of Hussain 13.2 (11.5-14.5) % Plt Count 206 (130-400) K/uL MPV 11.6 (9.4-12.4) fL ESR 15 (0-15) mm/hr Sodium 139 (136-145) mmol/L Potassium 3.9 (3.5-5.1) mmol/L Chloride 106 (98-107) mmol/L Carbon Dioxide 27 (21-32) mmol/L Anion Gap 6 (3-11) BUN 7 (6-23) mg/dl Creatinine 0.32 L (0.6-1.4) mg/dl Est Cr Clr Drug Dosing 273.1 ml/min Est GFR ( Amer) > 150.0 ml/min Est GFR (Non-Af Amer) > 150.0 ml/min BUN/Creatinine Ratio 21.9 H (10-20) Glucose 84 (70-99(Fasting)) mg/dl Estimat Average Glucose 91 mg/dl Hemoglobin A1c 4.8 (4.5-5.6) % Calcium 8.4 L (8.6-10.3) mg/dl Iron 69 (35-175) mcg/dl Unsaturated IBC 141 L (155-355) mcg/dl Ferritin 165.3 (8-388) ng/ml C-Reactive Protein < 0.50 (0-0.5) mg/dl Vitamin B12 716 (180-914) pg/ml 25-OH Vitamin D Total (30-100) ng/ml Folate 8.65 (>5.38) ng/ml SARS-CoV-2 (PCR) POSITIVE A* (Negative) Influenza Type A (PCR) Negative (Neg) Influenza Type B (PCR) Negative (Neg) RSV (RT-PCR) Negative (Neg) 08/14/23 Range/Units 19:21 WBC (4.8-10.8) K/ul RBC (4.70-6.10) M/uL Hgb (14.0-18.0) g/dl Hct (42.0-52.0) % MCV (80.0-100.0) fL MCH (25.0-34.0) pg MCHC (32.0-36.0) g/dL RDW Std Deviation (36.4-46.3) fL RDW Coeff of Hussain (11.5-14.5) % Plt Count (130-400) K/uL MPV (9.4-12.4) fL ESR (0-15) mm/hr Sodium (136-145) mmol/L Potassium (3.5-5.1) mmol/L Chloride (98-107) mmol/L Carbon Dioxide (21-32) mmol/L Anion Gap (3-11) BUN (6-23) mg/dl Creatinine (0.6-1.4) mg/dl Est Cr Clr Drug Dosing ml/min Est GFR ( Amer) ml/min Est GFR (Non-Af Amer) ml/min BUN/Creatinine Ratio (10-20) Glucose (70-99(Fasting)) mg/dl Estimat Average Glucose mg/dl Hemoglobin A1c (4.5-5.6) % Calcium (8.6-10.3) mg/dl Iron (35-175) mcg/dl Unsaturated IBC (155-355) mcg/dl Ferritin (8-388) ng/ml C-Reactive Protein (0-0.5) mg/dl Vitamin B12 (180-914) pg/ml 25-OH Vitamin D Total 12.2 L (30-100) ng/ml Folate (>5.38) ng/ml SARS-CoV-2 (PCR) (Negative) Influenza Type A (PCR) (Neg) Influenza Type B (PCR) (Neg) RSV (RT-PCR) (Neg) Medications Administered Current Inpatient Medications Acetaminophen (Acetaminophen 325 Mg Tab) 650 mg PO QID PRN PRN Reason: pain/fever Stop: 09/14/23 01:49 Acetaminophen/Codeine Phosphate (Acetaminophen W/Codeine #3 1 Tab) 1 tab PO QID PRN PRN Reason: pain not relieved by tylenol Stop: 09/14/23 01:49 Last Admin: 08/16/23 04:06 Dose: 1 tab Amphetamine/Dextroamphetamine (Amphetamine Asp/Sulf/Dextramph 20 Mg Tab) 20 mg PO TID@0800,1100,1430 [facility] Stop: 08/30/23 07:59 Apixaban (Apixaban 5 Mg Tablet) 5 mg PO BID [facility] Stop: 09/14/23 08:59 Last Admin: 08/15/23 20:45 Dose: 5 mg Clonazepam (Clonazepam 0.25 Mg Tab) 0.25 mg PO HS [facility] Stop: 09/14/23 20:59 Last Admin: 08/15/23 20:48 Dose: Not Given Dicyclomine HCl (Dicyclomine Hcl 10 Mg Cap) 10 mg PO TID [facility] Stop: 09/14/23 13:59 Last Admin: 08/15/23 20:47 Dose: 10 mg Ergocalciferol (Ergocalciferol 50,000 Units 1250 Mcg Cap) 50,000 units PO Q5D@0900 [facility] Stop: 08/31/23 09:01 Escitalopram Oxalate (Escitalopram Oxalate 20 Mg Tab) 20 mg PO QAM [facility] Stop: 09/14/23 08:59 Last Admin: 08/15/23 09:16 Dose: 20 mg Gabapentin (Gabapentin 300 Mg Cap) 300 mg PO TID [facility] Stop: 09/14/23 13:59 Last Admin: 08/15/23 20:47 Dose: 300 mg Guaifenesin (Guaifenesin 600 Mg Tabcr) 600 mg PO Q12 [facility] Stop: 09/15/23 08:59 Hyoscyamine (Hyoscyamine Sulfate 0.375 Mg Tabcr) 0.375 mg PO BID [facility] Stop: 09/14/23 20:59 Last Admin: 08/15/23 20:47 Dose: 0.375 mg Ampicillin Sodium/Sulbactam Sodium 3,000 mg/ Sodium Chloride 100 mls @ 100 mls/hr IV Q6H [facility] Stop: 08/23/23 05:14 Last Infusion: 08/16/23 06:42 Dose: Infused Mirtazapine (Mirtazapine Tab 15 Mg Tab) 15 mg PO HS [facility] Stop: 09/14/23 20:59 Last Admin: 08/15/23 20:46 Dose: 15 mg Neomycin/Polymyxin/Hydrocortisone (Neomycin/Polymyx/Hydrocort Ot Soln 10 Ml Btl) 4 drops OT TID [facility] Stop: 09/14/23 13:59 Last Admin: 08/15/23 20:51 Dose: 4 drops Ondansetron HCl (Ondansetron 4 Mg Od Tab) 4 mg PO Q6H PRN PRN Reason: nausea and vomiting Stop: 09/14/23 13:01 Pantoprazole Sodium (Pantoprazole 40 Mg Tab) 40 mg PO BID [facility] Stop: 09/14/23 20:59 Last Admin: 08/15/23 20:49 Dose: 40 mg Polyethylene Glycol (Polyethylene (Miralax) 17 Gm Pack) 17 gm PO DAILY PRN PRN Reason: Constipation Stop: 09/14/23 01:49 Senna/Docusate Sodium (Docusate Sodium/Senna 50/8.6mg Tab) 1 tab PO QAM [facility] Stop: 09/14/23 08:59 Last Admin: 08/15/23 09:16 Dose: 1 tab (2) Abdominal pain Abdominal location: unspecified location Qualified Code(s): R10.9 - Unspecified abdominal pain
--- NOTE | 2023-08-16 08:32 | XRay Report ---
XR chest 1V portable CLINICAL HISTORY: cough TECHNIQUE: Single frontal radiograph of the chest was obtained. Comparison: Comparison is made to chest radiograph 08/14/2023 FINDINGS: No lines and tubes are seen. The cardiomediastinal silhouette is normal. The lungs are clear. No evid ence of pleural effusion or pneumothorax. IMPRESSION: No acute abnormalities and in particular no radiographic evidence of pneumonia. ACT 112: Negative or not required by law. Electronically signed by: Keny Cantu M.D. 08/16/2023 8:31 AM
[2023-08-16] MEDS ORDERED: ERGOCALCIFEROL 50,000 UNITS 1250 MCG CAP PO SCH (09:00)
[2023-08-16] MEDS: DOCUSATE SODIUM/SENNA 50/8.6MG TAB PO SCH (09:22)
[2023-08-16] MEDS: NEOMYCIN/POLYMYX/HYDROCORT OT SOLN 10 ML BTL OT SCH ×3 (09:22→21:10)
[2023-08-16] MEDS: ESCITALOPRAM OXALATE 20 MG TAB PO SCH (09:22)
[2023-08-16] MEDS: HYOSCYAMINE SULFATE 0.375 MG TABCR PO SCH ×2 (09:22→21:16)
[2023-08-16] MEDS: APIXABAN 5 MG TABLET PO SCH ×2 (09:22→21:15)
[2023-08-16] MEDS: DICYCLOMINE HCL 10 MG CAP PO SCH ×3 (09:22→21:15)
[2023-08-16] MEDS: guaiFENesin 600 MG TABCR PO SCH ×2 (09:23→21:16)
[2023-08-16] MEDS: PANTOprazole 40 MG TAB PO SCH ×2 (09:23→21:16)
[2023-08-16] MEDS: GABAPENTIN 300 MG CAP PO SCH ×3 (09:23→21:15)
[2023-08-16] MEDS: AMPHETAMINE ASP/SULF/DEXTRAMPH 20 MG TAB PO SCH ×3 (09:31→15:39)
[2023-08-16] MEDS ORDERED: bisacodyL 10 MG SUPP PR STA (13:23)
[2023-08-16] MEDS: POLYETHYLENE (MIRALAX) 17 GM PACK PO SCH (13:36)
[2023-08-16] MEDS: clonazePAM 0.25 MG TAB PO SCH (21:15)
[2023-08-16] MEDS: MIRTAZAPINE TAB 15 MG TAB PO SCH (21:16)
[2023-08-17 05:22] LABS: Hematocrit (blood only) 42.2 % (42.0-52.0); Hemoglobin 13.5 g/dl (14.0-18.0); Mean Corpuscular Hemoglobin 29.7 pg (25.0-34.0); Platelet Count 202 K/uL (130-400); RDW Coefficient of Variation 13.4 % (11.5-14.5); RDW Standard Deviation 45.6 fL (36.4-46.3); Red Blood Count 4.54 M/uL (4.70-6.10); White Blood Count 4.32 K/ul (4.8-10.8)
[2023-08-17] MEDS: AMPICILLIN/SULBACTAM SOD 3,000 MG in SODIUM CHLOR 0.9% MINI-B 100 ML IV SCH ×2 (05:32→11:23)
[2023-08-17 05:34] LABS: Anion Gap 5 (3-11); BUN Creatinine Ratio 18.2 (10-20); Blood Urea Nitrogen 4 mg/dl (6-23); Calcium 8.5 mg/dl (8.6-10.3); Carbon Dioxide 29 mmol/L (21-32); Chloride 104 mmol/L (98-107); Creatinine Clr Calc Pharmacy 397.3 ml/min; Est GFR (African American) > 150.0 ml/min; Est GFR (Non-African American) > 150.0 ml/min; Glucose 102 mg/dl (70-99(Fasting)); Phosphorus 3.9 mg/dl (2.5-4.9); Potassium 3.7 mmol/L (3.5-5.1); Sodium 138 mmol/L (136-145)
[2023-08-17] MEDS: PANTOprazole 40 MG TAB PO SCH (08:09)
[2023-08-17] MEDS: POLYETHYLENE (MIRALAX) 17 GM PACK PO SCH (08:09)
[2023-08-17] MEDS: HYOSCYAMINE SULFATE 0.375 MG TABCR PO SCH (08:09)
[2023-08-17] MEDS: GABAPENTIN 300 MG CAP PO SCH ×2 (08:10→13:40)
[2023-08-17] MEDS: guaiFENesin 600 MG TABCR PO SCH (08:10)
[2023-08-17] MEDS: ESCITALOPRAM OXALATE 20 MG TAB PO SCH (08:11)
[2023-08-17] MEDS: DOCUSATE SODIUM/SENNA 50/8.6MG TAB PO SCH (08:11)
[2023-08-17] MEDS: APIXABAN 5 MG TABLET PO SCH (08:11)
[2023-08-17] MEDS: DICYCLOMINE HCL 10 MG CAP PO SCH (08:11)
[2023-08-17] MEDS: NEOMYCIN/POLYMYX/HYDROCORT OT SOLN 10 ML BTL OT SCH ×2 (08:12→13:40)
[2023-08-17] MEDS: AMPHETAMINE ASP/SULF/DEXTRAMPH 20 MG TAB PO SCH ×3 (08:17→13:40)
[2023-08-17] MEDS ORDERED: ADVANCED PROBIOTIC 1250 MG CAPSULE PO SCH (11:00)
--- NOTE | 2023-08-17 11:22 | Discharge Summary ---
Date of Service August 17, 2023 Admission HPI Per Admitting Provider History obtained from patient, family, and records. Medical history significant for history PE/DVT on Eliquis, ALS, orthostatic hypotension as per records, anxiety/mood disorder/ADD, GERD, IBS as per records, chronic back pain. Last [facility] confinement February 2020 for acute saddle PE/DVT. Patient discharged on Eliquis. Recent ER visit 3 weeks ago for cough, GI upset and nausea symptoms attributed to COVID-19 illness. Transient hypotension at the ER. Patient discharged from the ER following hospitalist evaluation. Patient later completed Paxlovid prescription from PCP. Improved cough/congestion symptoms. Increasing generalized weakness since COVID-19 illness. Patient having trouble getting out of bed into his chair. Unable to work. Poor appetite. Denies headache, chest pain, SOB. Worsening GERD symptoms. Achy lower abdominal discomfort with nausea, no emesis. No bowel movement for 5 days which is unusual for him. No improvement with OTC laxatives. Patient also complaining of persistent left ear discomfort/tinnitus attributed to earwax by PCP 2 months ago. Patient unaware of otorrhea symptoms Patient also prescribed topical antibiotic/steroid Rx "to break down the wax" as per . Patient inquiring about medications to make her "stronger and eat better." Condom catheter requested for urinary incontinence symptoms. Patient sent to ER after evaluation by outpatient provider yesterday. 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 Admission Exam Per Admitting Provider GENERAL: Slightly uncomfortable, chronically ill, chronic dysarthria, no respiratory distress SKIN: Normal color, warm HEENT: [place] palpebral conjunctivae, no ptosis, dry buccal mucosa; : No tragal tenderness, yellow-brown discharge noted at the EAC, TM not fully visualized NECK : Supple, no tenderness CHEST : Decreased breath sounds, no tenderness HEART : RRR, no obvious murmurs ABDOMEN: Some distention, minimal hypogastric tenderness EXTREMITIES : No LE swelling/tenderness, no other conspicuous deformities noted NEUROLOGIC : Coherent, facial asymmetry noted during speech, chronic dysarthria, MMTs; BUE 1/5, BLE 2/5, gait and stance not assessed Principal Diagnosis Sepsis, UTI in the setting of ALS and recent covid infection Discharge Exam CONSTITUTIONAL: WNWD, M in NAD EYES: normal conjunctivae, no scleral icterus ENT: external ear and nose normal, MMM NECK: supple RESPIRATORY: clear to auscultation bilaterally, no crackles, rales or wheezes, normal respiratory effort CARDIOVASCULAR: regular rate and rhythm, S1 and 2 heard without murmurs CHEST: inspection of chest was normal GASTROINTESTINAL: soft, nontender, ND, no guarding MUSCULOSKELETAL: strength 5/5 throughout but limited range of motion and patient is wheelchair bound at baseline, gait not assessed as a result, head is normocephalic and atraumatic, SKIN: warm and dry NEURO/PSYCH: alert cooperative and oriented to person, place and time. Euthymic mood, normal cognition, normal speech, no tremor Discharge Data Allergies Allergy/AdvReac Type Severity Reaction Status Date / Time lactose AdvReac Unknown Diarrhea Verified 08/15/23 12:12 tramadol AdvReac Unknown GI Verified 02/12/21 23:43 discomfort Consultations 08/14/23 23:53 ED Decision to Admit Stat Ordered Studies 08/14/23 19:05 CT Abd and Pelvis [CT abd pelvis IV con only] Stat FINDINGS: Lung bases: Unremarkable. No mass. No consolidation. ABDOMEN: Liver: Unremarkable. No focal hepatic lesion. Gallbladder and bile ducts: Unremarkable. No calcified stones. No ductal dilation. Pancreas: Atrophy of the pancreas. No ductal dilation. Spleen: Unremarkable. No splenomegaly. Adrenals: Unremarkable. No mass. Kidneys and ureters: Unremarkable. No hydronephrosis or delayed nephrogram. Stomach and bowel: Mild fecal retention, correlate for constipation. Fluid filled small bowel measuring up to 2.9 cm, correlate for enteritis/ileus. No definite bowel obstruction identified however, if symptoms worsen, consider repeat exam with oral contrast. PELVIS: Appendix: No findings to suggest acute appendicitis. Bladder: Unremarkable. No mass. Reproductive: Vasectomy clips. ABDOMEN and PELVIS: Intraperitoneal space: Unremarkable. No free air. No significant fluid collection. Bones/joints: Degenerative changes of the spine. No acute fracture. No dislocation. Soft tissues: Unremarkable. Vasculature: Unremarkable. No abdominal aortic aneurysm. Lymph nodes: Unremarkable. No enlarged lymph nodes. IMPRESSION: Mild fecal retention, correlate for constipation. Fluid filled small bowel measuring up to 2.9 cm, correlate for enteritis/ileus. No definite bowel obstruction identified however, if symptoms worsen, consider repeat exam with oral contrast. Hospital Course (1) Sepsis: Has chronic leukopenia and tachycardia. Questionable SIRS vs sepsis. Pt felt he may have an ear infection. No pain there, has been hot and cold historically wtih ALS and no clear, billie fever recently. Doubt bacterial ear infection. Also now with questionable GI infection and UA without bacteria but UCx shows Staph species. No known h/o MRSA infection in the past. Pt was started on Rocephin, switched to Unasyn, clinically much improved. Ucultx and sensitivities now available. Will discharge on PO Bactrim. (2) Abdominal pain: improved, uncertain if this is related to viral GI illness, but there is no diarrhea and he is now reporting an improvement in his appetite after rehydration. Has a h/o IBS. Cont dicyclomine per home regimen. (3) Neuropathy: Some intermittent neuropathy of the soles of feet in the past, notably more consistent since recent covid illness. Was on gabapentin 100mg PO TID but not improved. Increased this to 300mg PO TID. Lidocaine patches as needed. Also TSH normal, no evidence of DMII on A1C screening, B12 and folate are WNL, and no evidence of iron deficiency. Vit D was low, however, replacement started. Cont to titrate gabapentin to effect as tolerated. (4) ALS (amyotrophic lateral sclerosis): chronic, stable. Cont current therapy. Support weakness and turn q2h. Wheelchair bound at baseline. 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 Cont Adderall per home regimen. (6) History of pulmonary embolism: chronic, stable. Continues on apixaban (7) Vitamin D deficiency: 25 OH Level 12. Ergocalciferol started. Cont 50K units once weekly Total Time Total Time Spent Total Time Spent (In Minutes): 40 Discharge Plan Discharge Items Patient Disposition: Home - Home Health Services Reason For Visit: SEPSIS Discharge Diagnosis: Sepsis, UTI in the setting of ALS and recent covid infection Activity: Per Instructions section Non-emergency contact: Primary Care Provider Call non-emergency contact if: you have any medication questions and your symptoms worsen Follow-up/Referrals: Keith Cross MD [Primary Care Provider] - (Date & Time 08/23/2023 11:00 AM Provider Keith Cross MD Department Family [facility] ) Diet: Regular Addtl Attending Provider Instructions: Follow up with your primary care doctor within 1 week. The appointment was scheduled for you for 08/23/2023. Your gabapentin dose was increased to 300 three times a day. Finish antibiotic course as prescribed. You were also started on vit. D supplement, take it as prescribed and further follow up with your primary care physician. Pending Studies at Discharge: Yes Studies:: final blood cultx results Stand-Alone Forms: My [facility], Smoking Cessation Medications and DC Order Prescriptions: New gabapentin 300 mg Capsule 300 mg PO TID 10 Days Qty: 30 0RF Advanced Probiotic 625 mg (10 billion cell) Capsule 2 cap PO DAILY Qty: 10 0RF ergocalciferol (vitamin D2) 1,250 mcg (50,000 unit) Capsule 50,000 unit PO Q7D Qty: 7 0RF sulfamethoxazole-trimethoprim [Bactrim DS] 800-160 mg tablet 1 tab PO BID 4 Days Qty: 8 0RF Continued dextroamphetamine-amphetamine 20 mg tablet 20 mg PO TID omeprazole 20 mg capsule,delayed release(DR/EC) 20 mg PO QAM escitalopram oxalate 20 mg tablet 20 mg PO QAM mirtazapine 30 mg tablet 15 mg PO HS ipratropium-albuterol 0.5 mg-3 mg(2.5 mg base)/3 mL solution for nebulization 3 ml INHALATION Q6H PRN (Reason: WHEEZING OR SOB) hyoscyamine sulfate 0.375 mg tablet extended release 12 hr 0.375 mg PO BID Benadryl 2 cap PO HS Rx Instructions: unknown dose ondansetron 4 mg tablet,disintegrating 4 mg PO Q6H PRN (Reason: nausea and vomiting) Qty: 14 0RF Eliquis 5 mg tablet 5 mg PO BID [id number] 3.5-10,000-1 mg/mL-unit/mL-% solution 4 drp OTL TID clonazepam 0.5 mg tablet 0.25 mg PO HS dicyclomine 10 mg capsule 10 mg PO TID Discontinued gabapentin 100 mg capsule 100 mg PO TID Rx Instructions: am and midday Discharge Orders: Discharge Order (Routine); Ordered 08/17/23 Ordered By: Amando Garica Admission Data Admit Date/Time: 08/15/23 01:43 Attending Provider: Amando Garcia Admit Provider: Calvin Salazar Primary Care Provider: Keith Cross Other Providers: Calvin Salazar; Shira Keating
== END 2023-08-17 16:09 | disposition home or self-care (01) | DRG 872 ==
LOC: ED 18:46 → SUATTDRO 08-15 01:43 → EDINP 08-15 01:43 → 2N 08-15 02:32 → 2W 08-16 07:45

== ENCOUNTER 2023-11-14 18:34 | Inpatient (IN) ==
--- NOTE | 2023-11-14 19:41 | XRay Report ---
SINGLE VIEW CHEST CLINICAL HISTORY: Atypical chest pain. FINDINGS: An AP, portable, upright chest radiograph is compared to study dated 08/16/2023. Correlation is made with chest CT dated 02/28. The cardiomediastinal silhouette is unremarkable. Chronic intersti tial thickening is similar to previous. There is bibasilar scarring/atelectasis. No airspace consolid ation or large pleural effusion is identified. No pneumothorax is seen. The skeletal structures are o steopenic. The bony thorax is grossly intact. IMPRESSION: No acute cardiopulmonary abnormality. ACT 112: Negative or not required by law. Electronically signed by: Jose Ellington M.D. 11/14/2023 7:40 PM
[2023-11-14 19:56] LABS: Basophils # (auto) 0.07 K/uL (0.00-0.20); Basophils % (auto) 0.6 %; Eosinophils # (auto) 0.07 K/uL (0.00-0.50); Eosinophils % (auto) 0.6 %; Hematocrit (blood only) 45.6 % (42.0-52.0); Hemoglobin 14.6 g/dl (14.0-18.0); Immature Granulocytes # (auto) 0.03 K/uL (0.01-0.20); Immature Granulocytes % (auto) 0.3 %; Lymphocytes # (auto) 0.86 K/uL (1.20-3.40); Lymphocytes % (auto) 7.2 %; Mean Corpuscular Hemoglobin 28.9 pg (25.0-34.0); Mean Corpuscular Volume 90.3 fL (80.0-100.0); Mean Platelet Volume 11.8 fL (9.4-12.4); Monocytes % (auto) 3.4 %; Neutrophils # (auto) 10.51 K/uL (1.40-6.50); Neutrophils % (auto) 87.9 %; Platelet Count 241 K/uL (130-400); RDW Coefficient of Variation 12.4 % (11.5-14.5); RDW Standard Deviation 40.5 fL (36.4-46.3); Red Blood Count 5.05 M/uL (4.70-6.10); White Blood Count 11.94 K/ul (4.8-10.8)
--- NOTE | 2023-11-14 20:15 | Emergency Department Note ---
Impression & Plan SBO (small bowel obstruction), Acute hypoxemic respiratory failure ED Provider Note HISTORY OF PRESENT ILLNESS: Patient is a 48-year-old male presenting with shortness of breath and abdominal pain. provides most of the history secondary to patient's pain level. He has a history of ALS and is not currently on any medications for this. He has become progressively more short of breath in the last 48 hours. reports that he has been coughing up clear mucus and secretions. Reports that the patient has not had a bowel movement in the last few days. Reports that he has been constipated and despite stool softeners at home he has not had a bowel movement. No chest pain. No reported fevers. called 911 given patient's work of breathing. On EMS arrival patient was found to be 90% on room air. He was placed on 4 L nasal cannula with improvement in his saturations. On arrival to the emergency department, the patient reports that he is having generalized abdominal pain for the last 2 to 3 days. ROS: as above PHYSICAL EXAM: Constitutional: Patient appears in moderate distress. HENT: Head: Normocephalic and atraumatic. Eyes: EOMI, PERRL Mouth/Throat: Mucous membranes moist. Neck: Trachea midline. Neck supple. Cardiovascular: Tachycardic with regular rhythm. No murmurs, rubs or gallops. Intact distal pulses. Pulmonary/Chest: No respiratory distress. Breath sounds clear and equal bilaterally. No wheezes or rales. No chest wall tenderness to palpation. Abdominal: Abdomen soft, no rebound or guarding. Generalized tenderness to palpation. Musculoskeletal: No edema, tenderness or deformity noted. Skin: Warm and dry. No rash, erythema, pallor or cyanosis Psychiatric: Appropriate mood and affect for situation. Neurological: Alert and keenly responsive. CN II-XII grossly intact MDM: - Vitals signs showed tachycardia - History obtained via patient and patient's . History as above. - Chronic conditions affecting care: ALS - Differential diagnoses include, but are not limited to: Constipation; small bowel obstruction; pneumonia; viral syndrome; dehydration; electrolyte - Order placed for continuous cardiac monitoring. At this time, monitor showed rate of 110 bpm with normal sinus rhythm, per my interpretation. - External medical records reviewed. Discharge summary dated 08/17/2023 was reviewed. Patient was admitted at that time for sepsis secondary to UTI and recent COVID infection - EKG interpreted by myself showed normal sinus rhythm. Rate 96 bpm. QT 366. No acute ischemic changes. - Laboratory workup interpreted by myself showed leukocytosis (WBC 11.94) with left shift; stable electrolytes; normal troponin; normal procalcitonin; normal lactate - CXR negative for pneumonia, per my interpretation - UA negative for infection - CT abdomen/pelvis wo contrast markedly distended stomach with fluid and gas present and dilated loops of small bowel measuring up to 3.4 cm consistent with a small bowel obstruction - Viral respiratory panel negative. - Patient given 2L NS, 1g IV tylenol and 4 mg IV zofran. - Patient was hypoxic on 4 L nasal cannula with saturations of 88%. Requested high flow nasal cannula be started with improvement in the patient's saturations. - Discussed NG tube placement with patient's . Will plan to take off high flow and attempt on oxime mask for continuous oxygenation with an NG tube in place to help decompress his small bowel obstruction. - Discussion was had with case management rn about patient's case and need for admission - Hospitalist consulted for admission - [facility] ASSESSMENT AND PLAN: Diagnosis: acute hypoxemic respiratory failure; small bowel obstruction Plan: admit Past Med/Surg History Medical History COVID-19 History of pulmonary embolism ADD (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 GERD (gastroesophageal reflux disease) ALS (amyotrophic lateral sclerosis) Surgical History History of vasectomy H/O rhinoplasty S/P left knee arthroscopy Family History Father Pulmonary embolism Mother Hypertension Social History Smoking Status: Never smoker Second Hand Exposure: No; Do You Dip or Chew Tobacco: No; Hx Alcohol Use: No Hx Substance Use: No Preferred Language: Guatemalan Communication Ability: Effective Manager Field Required: No Beliefs That Will Affect Care: None marital status: Current Living Situation: Spouse current occupational status: employed Feels Safe at Home: Yes Assistive Devices: BiPap Allergies Allergies Allergy/AdvReac Type Severity Reaction Status Date / Time lactose AdvReac Unknown Diarrhea Verified 11/14/23 20:29 tramadol AdvReac Unknown GI Verified 11/14/23 20:29 discomfort Home Meds Home Medications Medication Instructions Recorded Confirmed dextroamphetamine-amphetamine 20 20 mg PO TID 01/31/19 11/14/23 mg tablet escitalopram oxalate 20 mg tablet 20 mg PO QAM 01/31/19 11/14/23 omeprazole 20 mg capsule,delayed 20 mg PO QAM 01/31/19 11/14/23 release apixaban 5 mg tablet (Eliquis) 5 mg PO BID 11/19/20 11/14/23 hyoscyamine sulfate 0.375 mg 0.375 mg PO BID 07/25/23 11/14/23 tablet,extended release,12 hr ipratropium 0.5 mg-albuterol 3 mg 3 ml inhalation Q6H PRN WHEEZING 07/25/23 11/14/23 (2.5 mg base)/3 mL nebulization OR SOB soln dicyclomine 10 mg capsule 10 mg PO TID 08/15/23 11/14/23 clonazepam 0.5 mg tablet 0.25 mg PO Q OTHER DAY 11/14/23 11/14/23 gabapentin 300 mg capsule 300 mg PO TID 11/14/23 11/14/23 glycopyrrolate 1 mg tablet 1 mg PO HS 11/14/23 11/14/23 mirtazapine 15 mg tablet 15 mg PO HS 11/14/23 11/14/23 Previous Rx's Medication Instructions Recorded ondansetron 4 mg disintegrating 4 mg PO Q6H PRN nausea and 07/25/23 tablet vomiting #14 tabs ergocalciferol (vitamin D2) 1,250 50,000 unit PO Q7D #7 caps 08/17/23 mcg (50,000 unit) capsule Results & Data (ED) Vital Signs Vital Signs - 24 hr 11/14/23 18:29 11/14/23 18:48 11/14/23 19:36 Temperature 36.9 C Temperature Source Oral Pulse Rate 119 H 110 H Pulse Rate [Finger] Pulse Rhythm Pulse Rhythm [Finger] Pulse Strength [Finger] Respiratory Rate 15 Respiratory Effort / Characteristics Non-Labored Spontaneous Respiratory Depth Normal Normal Respiratory Pattern Regular Regular Blood Pressure 150/113 H Blood Pressure [Right Arm] Blood Pressure Mean 125 Blood Pressure Mean [Right Arm] Pulse Oximetry 97 Oxygen Delivery Method Nasal Cannula Room Air Oxygen Flow Rate 4 Fraction of Inspired Oxygen SaO2/FiO2 Ratio Sepsis Recent Fever Within 48 Hours No Sepsis New/Unexplained Change in Mental Status N/A Sepsis Action Taken by Nursing No Action Required 11/14/23 19:36 11/14/23 19:38 11/14/23 20:27 Temperature Temperature Source Pulse Rate Pulse Rate [Finger] 110 H Pulse Rhythm Irregular Pulse Rhythm [Finger] Pulse Strength [Finger] Respiratory Rate 22 25 H Respiratory Effort / Characteristics Non-Labored Spontaneous Respiratory Depth Respiratory Pattern Blood Pressure Blood Pressure [Right Arm] Blood Pressure Mean Blood Pressure Mean [Right Arm] Pulse Oximetry 93 93 Oxygen Delivery Method Room Air Room Air High Flow Nasal Cannula Oxygen Flow Rate 40 Fraction of Inspired Oxygen 50 SaO2/FiO2 Ratio Sepsis Recent Fever Within 48 Hours Sepsis New/Unexplained Change in Mental Status Sepsis Action Taken by Nursing 11/14/23 21:39 11/14/23 22:10 11/14/23 22:55 Temperature Temperature Source Pulse Rate 110 H Pulse Rate [Finger] 109 H 115 H Pulse Rhythm Pulse Rhythm [Finger] Regular Regular Pulse Strength [Finger] Normal Normal Respiratory Rate 26 H 20 Respiratory Effort / Characteristics SOB on Exertion Respiratory Depth Normal Normal Respiratory Pattern Regular Regular Blood Pressure Blood Pressure [Right Arm] 136/93 132/90 Blood Pressure Mean Blood Pressure Mean [Right Arm] 107 104 Pulse Oximetry 97 Oxygen Delivery Method High Flow Nasal Cannula High Flow Nasal Cannula Oxygen Flow Rate 40 40 Fraction of Inspired Oxygen 40 SaO2/FiO2 Ratio 242 Sepsis Recent Fever Within 48 Hours Sepsis New/Unexplained Change in Mental Status Sepsis Action Taken by Nursing Laboratory Data 11/14/23 19:30 11/14/23 19:30 Lab Results 11/14/23 11/14/23 11/14/23 Range/Units 19:30 20:28 21:13 WBC 11.94 H (4.8-10.8) K/ul RBC 5.05 (4.70-6.10) M/uL Hgb 14.6 (14.0-18.0) g/dl Hct 45.6 (42.0-52.0) % MCV 90.3 (80.0-100.0) fL MCH 28.9 (25.0-34.0) pg MCHC 32.0 (32.0-36.0) g/dL RDW Std Deviation 40.5 (36.4-46.3) fL RDW Coeff of Hussain 12.4 (11.5-14.5) % Plt Count 241 (130-400) K/uL MPV 11.8 (9.4-12.4) fL Immature Gran % (Auto) 0.3 % Neut % (Auto) 87.9 % Lymph % (Auto) 7.2 % Davison % (Auto) 3.4 % Eos % (Auto) 0.6 % Baso % (Auto) 0.6 % Neut # (Auto) 10.51 H (1.40-6.50) K/uL Lymph # (Auto) 0.86 L (1.20-3.40) K/uL Davison # (Auto) 0.40 (0.11-0.59) K/uL Eos # (Auto) 0.07 (0.00-0.50) K/uL Baso # (Auto) 0.07 (0.00-0.20) K/uL Immature Gran # (Auto) 0.03 (0.01-0.20) K/uL PT 11.4 (9.0-12.0) Seconds INR 1.0 (0.9-1.1) APTT 28 (21-31) Seconds PTT Ratio 1.0 Sodium 139 (136-145) mmol/L Potassium 4.1 (3.5-5.1) mmol/L Chloride 100 (98-107) mmol/L Carbon Dioxide 30 (21-32) mmol/L Anion Gap 9 (3-11) BUN 8 (6-23) mg/dl Creatinine 0.22 L (0.6-1.4) mg/dl Est Cr Clr Drug Dosing 396.1 ml/min Est GFR ( Amer) > 150.0 ml/min Est GFR (Non-Af Amer) > 150.0 ml/min BUN/Creatinine Ratio 36.4 H (10-20) Glucose 103 H (70-99(Fasting)) mg/dl Lactate 1.1 (0.4-2.0) mmol/L Calcium 9.6 (8.6-10.3) mg/dl Total Bilirubin 0.5 (0.2-1.0) mg/dl AST 25 (13-39) U/L ALT 17 (7-52) U/L Alkaline Phosphatase 72 (34-104) U/L Troponin I High Sens 4.9 (0-20) pg/ml Total Protein 7.6 (6.0-8.3) gm/dl Albumin 4.3 (3.4-5.0) gm/dl Globulin 3.3 (2.5-4.0) gm/dl Albumin/Globulin Ratio 1.3 (0.9-2) Procalcitonin 0.05 (0-0.5) ng/ml Urine Color Urine Appearance (Clear) Urine pH (4.5-7.5) Ur Specific [place] (1.000-1.030) Urine Protein (Negative) Urine Glucose (UA) (Negative) Urine Ketones (Negative) Urine Blood (Negative) Urine Nitrite (Negative) Urine Bilirubin (Negative) Urine Urobilinogen (Negative) Ur Leukocyte Esterase (Negative) Adenovirus (PCR) Not Detected (NotDetected) B. pertussis DNA (PCR) Not Detected (NotDetected) B.parapertussis DNA PCR Not Detected (NotDetected) C. pneumoniae DNA (PCR) Not Detected (NotDetected) Coronavirus OC43 (PCR) Not Detected (NotDetected) Coronavirus HKU1 (PCR) Not Detected (NotDetected) Coronavirus 229E (PCR) Not Detected (NotDetected) SARS-CoV-2 (PCR) Not Detected (NotDetected) Coronavirus NL63 (PCR) Not Detected (NotDetected) Human Metapneumovir PCR Not Detected (NotDetected) Influenza Type A (PCR) Not Detected (NotDetected) Influenza Type B (PCR) Not Detected (NotDetected) M. pneumoniae (PCR) Not Detected (NotDetected) Parainfluenza 1 (PCR) Not Detected (NotDetected) Parainfluenza 2 (PCR) Not Detected (NotDetected) Parainfluenza 3 (PCR) Not Detected (NotDetected) Parainfluenza 4 (PCR) Not Detected (NotDetected) RSV (PCR) Not Detected (NotDetected) Entero/Rhino (PCR) Not Detected (NotDetected) 11/14/23 Range/Units 22:10 WBC (4.8-10.8) K/ul RBC (4.70-6.10) M/uL Hgb (14.0-18.0) g/dl Hct (42.0-52.0) % MCV (80.0-100.0) fL MCH (25.0-34.0) pg MCHC (32.0-36.0) g/dL RDW Std Deviation (36.4-46.3) fL RDW Coeff of Hussain (11.5-14.5) % Plt Count (130-400) K/uL MPV (9.4-12.4) fL Immature Gran % (Auto) % Neut % (Auto) % Lymph % (Auto) % [place]ison % (Auto) % Eos % (Auto) % Baso % (Auto) % Neut # (Auto) (1.40-6.50) K/uL Lymph # (Auto) (1.20-3.40) K/uL [place] # (Auto) (0.11-0.59) K/uL Eos # (Auto) (0.00-0.50) K/uL Baso # (Auto) (0.00-0.20) K/uL Immature Gran # (Auto) (0.01-0.20) K/uL PT (9.0-12.0) Seconds INR (0.9-1.1) APTT (21-31) Seconds PTT Ratio Sodium (136-145) mmol/L Potassium (3.5-5.1) mmol/L Chloride (98-107) mmol/L Carbon Dioxide (21-32) mmol/L Anion Gap (3-11) BUN (6-23) mg/dl Creatinine (0.6-1.4) mg/dl Est Cr Clr Drug Dosing ml/min Est GFR ( Amer) ml/min Est GFR (Non-Af Amer) ml/min BUN/Creatinine Ratio (10-20) Glucose (70-99(Fasting)) mg/dl Lactate (0.4-2.0) mmol/L Calcium (8.6-10.3) mg/dl Total Bilirubin (0.2-1.0) mg/dl AST (13-39) U/L ALT (7-52) U/L Alkaline Phosphatase (34-104) U/L Troponin I High Sens (0-20) pg/ml Total Protein (6.0-8.3) gm/dl Albumin (3.4-5.0) gm/dl Globulin (2.5-4.0) gm/dl Albumin/Globulin Ratio (0.9-2) Procalcitonin (0-0.5) ng/ml Urine Color Yellow Urine Appearance Clear (Clear) Urine pH 6.5 (4.5-7.5) Ur Specific [place] 1.025 (1.000-1.030) Urine Protein Negative (Negative) Urine Glucose (UA) Negative (Negative) Urine Ketones 1+ H (Negative) Urine Blood Negative (Negative) Urine Nitrite Negative (Negative) Urine Bilirubin Negative (Negative) Urine Urobilinogen Negative (Negative) Ur Leukocyte Esterase Negative (Negative) Adenovirus (PCR) (NotDetected) B. pertussis DNA (PCR) (NotDetected) B.parapertussis DNA PCR (NotDetected) C. pneumoniae DNA (PCR) (NotDetected) Coronavirus OC43 (PCR) (NotDetected) Coronavirus HKU1 (PCR) (NotDetected) Coronavirus 229E (PCR) (NotDetected) SARS-CoV-2 (PCR) (NotDetected) Coronavirus NL63 (PCR) (NotDetected) Human Metapneumovir PCR (NotDetected) Influenza Type A (PCR) (NotDetected) Influenza Type B (PCR) (NotDetected) M. pneumoniae (PCR) (NotDetected) Parainfluenza 1 (PCR) (NotDetected) Parainfluenza 2 (PCR) (NotDetected) Parainfluenza 3 (PCR) (NotDetected) Parainfluenza 4 (PCR) (NotDetected) RSV (PCR) (NotDetected) Entero/Rhino (PCR) (NotDetected) Administered Medications Discontinued Medications Sodium Chloride (Nss) 1,000 mls @ 999 mls/hr IV .Q1H1M ONE Stop: 11/14/23 21:32 Last Infusion: 11/14/23 21:59 Dose: Infused Documented By: Admin: 11/14/23 20:52 Dose: 999 mls/hr Documented By: CLINTON Acetaminophen (Ofirmev) 1,000 mg in 100 mls @ 400 mls/hr IV NOW STA Stop: 11/14/23 21:37 Last Infusion: 11/14/23 21:59 Dose: Infused Documented By: Admin: 11/14/23 21:36 Dose: 400 mls/hr Documented By: CLINTON Ondansetron HCl (Ondansetron Inj 2 Mg/Ml 2 Ml Vial) 4 mg IV NOW STA Stop: 11/14/23 21:42 Last Admin: 11/14/23 21:43 Dose: 4 mg Documented By: CLINTON Imaging Data Radiologist's Impression: Chest X-Ray 11/14/23 18:51 SINGLE VIEW CHEST CLINICAL HISTORY: Atypical chest pain. FINDINGS: An AP, portable, upright chest radiograph is compared to study dated 08/16/2023. Correlation is made with chest CT dated 02/28. The cardiomediastinal silhouette is unremarkable. Chronic interstitial thickening is similar to previous. There is bibasilar scarring/atelectasis. No airspace consolidation or large pleural effusion is identified. No pneumothorax is seen. The skeletal structures are osteopenic. The bony thorax is grossly intact. IMPRESSION: No acute cardiopulmonary abnormality. ACT 112: Negative or not required by law. Electronically signed by: Jose Ellington M.D. 11/14/2023 7:40 PM Abdomen/Pelvis CT 11/14/23 20:21 Exam(s): CT ABDOMEN + PELVIS Without Contrast EXAM: CT Abdomen and Pelvis Without Intravenous Contrast CLINICAL HISTORY: Reason for exam: abdominal pain. TECHNIQUE: Axial computed tomography images of the abdomen and pelvis without intravenous contrast. CTDI is 15.2 mGy and DLP is 870.66 mGy-cm. Automated exposure control was utilized for the study. A dose lowering technique was utilized adhering to the principles of ALARA. COMPARISON: No relevant prior studies available. FINDINGS: Lung bases: Bibasilar atelectasis, left greater than right. ABDOMEN: Liver: Small hepatic cysts. Gallbladder and bile ducts: Unremarkable. No calcified stones. No ductal dilation. Pancreas: Unremarkable. No ductal dilation. Spleen: Unremarkable. No splenomegaly. Adrenals: Unremarkable. No mass. Kidneys and ureters: Unremarkable. No obstructing stones. No hydronephrosis. Stomach and bowel: The stomach is markedly distended fluid and gas. Dilated loops of small bowel measuring up to 3.4 cm, characteristic of moderate small bowel obstruction. No clear transition point. No mucosal thickening. PELVIS: Appendix: Postoperative changes near the cecum may be secondary to prior appendectomy. The appendix is not visualized.. Bladder: Distended. No stones. Reproductive: Postoperative changes in the bilateral scrotal regions. ABDOMEN and PELVIS: Intraperitoneal space: Unremarkable. No free air. No significant fluid collection. Bones/joints: No acute fracture. No dislocation. Soft tissues: Unremarkable. Vasculature: Unremarkable. No abdominal aortic aneurysm. Lymph nodes: Unremarkable. No enlarged lymph nodes. IMPRESSION: The stomach is markedly distended fluid and gas. Dilated loops of small bowel measuring up to 3.4 cm, characteristic of moderate small bowel obstruction. No clear transition point. Electronically signed by: Minoo Mac MD 11/14/23 21:08 PM Discharge Plan Visit Data Chief Complaint: Shortness of Breath/Dyspnea ED Provider: Ceci Anderson Discharge Problem: SBO (small bowel obstruction), Acute hypoxemic respiratory failure Forms Stand Alone Forms: [facility] Prescriptions Prescriptions: No Action dextroamphetamine-amphetamine 20 mg tablet 20 mg PO TID omeprazole 20 mg capsule,delayed release(DR/EC) 20 mg PO QAM escitalopram oxalate 20 mg tablet 20 mg PO QAM ipratropium-albuterol 0.5 mg-3 mg(2.5 mg base)/3 mL solution for nebulization 3 ml INHALATION Q6H PRN (Reason: WHEEZING OR SOB) hyoscyamine sulfate 0.375 mg tablet extended release 12 hr 0.375 mg PO BID ondansetron 4 mg tablet,disintegrating 4 mg PO Q6H PRN (Reason: nausea and vomiting) Qty: 14 0RF Eliquis 5 mg tablet 5 mg PO BID dicyclomine 10 mg capsule 10 mg PO TID ergocalciferol (vitamin D2) 1,250 mcg (50,000 unit) Capsule 50,000 unit PO Q7D Qty: 7 0RF Rx Instructions: Sun glycopyrrolate 1 mg tablet 1 mg PO HS clonazepam 0.5 mg tablet 0.25 mg PO Q OTHER DAY Rx Instructions: Give @ hs gabapentin 300 mg capsule 300 mg PO TID mirtazapine 15 mg tablet 15 mg PO HS Referrals Referrals: Keith Cross MD [Primary Care Provider] -
[2023-11-14 20:30] LABS: Alanine Aminotransferase 17 U/L (7-52); Albumin Globulin Ratio 1.3 (0.9-2); Albumin Level 4.3 gm/dl (3.4-5.0); Alkaline Phosphatase 72 U/L (34-104); Anion Gap 9 (3-11); Aspartate Aminotransferase 25 U/L (13-39); BUN Creatinine Ratio 36.4 (10-20); Bilirubin,Total 0.5 mg/dl (0.2-1.0); Blood Urea Nitrogen 8 mg/dl (6-23); Calcium 9.6 mg/dl (8.6-10.3); Carbon Dioxide 30 mmol/L (21-32); Chloride 100 mmol/L (98-107); Creatinine Clr Calc Pharmacy 396.1 ml/min; Est GFR (African American) > 150.0 ml/min; Est GFR (Non-African American) > 150.0 ml/min; Globulin 3.3 gm/dl (2.5-4.0); Glucose 103 mg/dl (70-99(Fasting)); Potassium 4.1 mmol/L (3.5-5.1); Sodium 139 mmol/L (136-145); Total Protein 7.6 gm/dl (6.0-8.3)
[2023-11-14 20:36] LABS: Troponin I High Sensitivity 4.9 pg/ml (0-20)
[2023-11-14] MEDS: SODIUM CHLORIDE 0.9% 1,000 ML IV ONE (20:52)
--- NOTE | 2023-11-14 21:09 | CT Scan Report ---
Exam(s): CT ABDOMEN + PELVIS Without Contrast EXAM: CT Abdomen and Pelvis Without Intravenous Contrast CLINICAL HISTORY: Reason for exam: abdominal pain. TECHNIQUE: Axial computed tomography images of the abdomen and pelvis without intravenous contrast. CTDI is 15.2 mGy and DLP is 870.66 mGy-cm. Automated exposure control was utilized for the study. A dose lowering technique was utilized adhering to the principles of ALARA. COMPARISON: No relevant prior studies available. FINDINGS: Lung bases: Bibasilar atelectasis, left greater than right. ABDOMEN: Liver: Small hepatic cysts. Gallbladder and bile ducts: Unremarkable. No calcified stones. No ductal dilation. Pancreas: Unremarkable. No ductal dilation. Spleen: Unremarkable. No splenomegaly. Adrenals: Unremarkable. No mass. Kidneys and ureters: Unremarkable. No obstructing stones. No hydronephrosis. Stomach and bowel: The stomach is markedly distended fluid and gas. Dilated loops of small bowel measuring up to 3.4 cm, characteristic of moderate small bowel obstruction. No clear transition point. No mucosal thickening. PELVIS: Appendix: Postoperative changes near the cecum may be secondary to prior appendectomy. The appendix is not visualized.. Bladder: Distended. No stones. Reproductive: Postoperative changes in the bilateral scrotal regions. ABDOMEN and PELVIS: Intraperitoneal space: Unremarkable. No free air. No significant fluid collection. Bones/joints: No acute fracture. No dislocation. Soft tissues: Unremarkable. Vasculature: Unremarkable. No abdominal aortic aneurysm. Lymph nodes: Unremarkable. No enlarged lymph nodes. IMPRESSION: The stomach is markedly distended fluid and gas. Dilated loops of small bowel measuring up to 3.4 cm, characteristic of moderate small bowel obstruction. No clear transition point. Electronically signed by: Minoo Mac MD 11/14/23 21:08 PM
[2023-11-14 21:25] LABS: Adenovirus PCR Not Detected (NotDetected); Bordetella parapertussis PCR Not Detected (NotDetected); Bordetella pertussis PCR Not Detected (NotDetected); Chlamydia pneumoniae PCR Not Detected (NotDetected); Coronavirus 229E PCR Not Detected (NotDetected); Coronavirus CoV-2 (COVID19)PCR Not Detected (NotDetected); Coronavirus HKU1 PCR Not Detected (NotDetected); Coronavirus NL63 PCR Not Detected (NotDetected); Coronavirus OC43PCR Not Detected (NotDetected); Human Metapneumovirus PCR Not Detected (NotDetected); Influenza A PCR Not Detected (NotDetected); Influenza B PCR Not Detected (NotDetected); Mycoplasma pneumoniae PCR Not Detected (NotDetected); Parainfluenza Virus 1 PCR Not Detected (NotDetected); Parainfluenza Virus 2 PCR Not Detected (NotDetected); Parainfluenza Virus 3 PCR Not Detected (NotDetected); Parainfluenza Virus 4 PCR Not Detected (NotDetected); Respiratory Syncytial VirusPCR Not Detected (NotDetected); Rhinovirus/Enterovirus PCR Not Detected (NotDetected)
[2023-11-14] MEDS: ACETAMINOPHEN 1,000 MG/100 ML VIAL IV STA (21:36)
[2023-11-14 21:38] LABS: Partial Thromboplastin Time 28 Seconds (21-31); Prothrombin Time 11.4 Seconds (9.0-12.0)
[2023-11-14] MEDS: ONDANSETRON INJ 2 MG/ML 2 ML VIAL IV STA (21:43)
[2023-11-14 22:21] LABS: Appearance Urine Clear (Clear); Bilirubin Urine Negative (Negative); Blood Urine Negative (Negative); Color Urine Yellow; Glucose Urine UA Negative (Negative); Ketones Urine 1+ (Negative); Leukocyte Esterase Urine Negative (Negative); Nitrite Urine Negative (Negative); Protein Urine Negative (Negative); Specific Gravity Urine 1.025 (1.000-1.030); Urobilinogen Urine Negative (Negative); pH Urine 6.5 (4.5-7.5)
[2023-11-15] MEDS ORDERED: LORazepam 1 MG TAB SL STA (01:20)
--- NOTE | 2023-11-15 01:34 | History & Physical Report ---
Date of Service November 15, 2023 Assessment & Plan (1) Acute hypoxemic respiratory failure: Plan: 48-year-old male with past medical history significant for orthostatic hypotension, irritable bowel syndrome with diarrhea, GERD, ALS, attention deficit disorder without hyperactivity, history of DVT and history of PE, depression with anxiety was brought in because of shortness of breath and abdominal pain. Patient states he did not move his bowels for last 3 to 4 days. States when he came in was having abdominal pain about 4-5/10 in severity associated with nausea currently pain is down to 3/10 in severity. No vomiting. No fevers. No chest pain . Was feeling short of breath. No runny nose or sore throat. No cough. Normal bladder movements. Patient states he is wheelchair-bound for last 3 years. He could not move his extremities. Able to eat regular food and swallows okay but has to be fed. Currently on 5 L he saturating okay. S/p NG tube in the ER.States uses BiPAP while sleeping without oxygen. Acute hypoxemic respiratory failure Currently requiring 5 l oxygen Chest x-ray looks fine. Patient has no vomitings. Does not seem to be aspirated History of PE but patient is on Eliquis But will do CTA chest rule out PE or any other causes Continue oxygen supplementation Probably could be distress from small bowel obstruction with underlying ALS If not improving will consult pulmonary Close monitor Small bowel obstruction S/p NG tube N.p.o. IV fluids IV antiemetics as needed IV Dilaudid as needed Surgery consult in a.m. ALS Nonambulatory status Uses BiPAP while sleeping Close monitor History of DVT and PE Holding Eliquis until able to take p.o. IV heparin Attention deficit disorder without hyperactivity Depression with anxiety Restart home p.o. medications when able to take p.o. Can place him on IV Ativan as needed for now if needed. GERD IV Protonix Neuropathy On gabapentin Restart when able to take p.o. DVT prophylaxis IV heparin Disposition Telemetry Full code Addendum: Ct chest No PE But showing opacification of left and right lower lobe. Placed on iv zosyn and doxy and consulted pulmonary. History of Present Illness Chief Complaint: Shortness of breath and abdominal pain Primary Care Provider: Keith Cross MD 48-year-old male with past medical history significant for orthostatic hypotension, irritable bowel syndrome with diarrhea, GERD, ALS, attention deficit disorder without hyperactivity, history of DVT and history of PE, depr ession with anxiety was brought in because of shortness of breath and abdominal pain. Patient states he did not move his bowels for last 3 to 4 days. States when he came in was having abdominal pain about 4-5/10 in severity associated with nausea currently pain is down to 3/10 in severity. No vomiting. No fevers. No chest pain . Was feeling short of breath. No runny nose or sore throat. No cough. Normal bladder movements. Patient states he is wheelchair- bound for last 3 years. He could not move his extremities. Able to eat regular food and swallows okay but has to be fed. Currently on 5 L he saturating okay. S/p NG tube in the ER.States uses BiPAP while sleeping without oxygen. Past medical history. As mentioned above. Past surgical history. Circumcision. Graft rib cartilage to face. Knee arthroscopy. Rhinoplasty. Appendectomy. Revision of ulnar nerve at elbow left side. Vasectomy. Social history. . No smoking. Alcohol rare. No drug use Family history. Father had blood clot. Depression. Mother had hypertension. Maternal grandfather had mouth cancer. Stroke. Maternal grandmother had hypertension. Paternal grandfather had MT. Allergies Allergy/AdvReac Type Severity Reaction Status Date / Time lactose AdvReac Unknown Diarrhea Verified 11/14/23 20:29 tramadol AdvReac Unknown GI Verified 11/14/23 20:29 discomfort Home Medications Medication Instructions Recorded Confirmed Type dextroamphetamine-amphetamine 20 20 mg PO TID 01/31/19 11/14/23 History mg tablet escitalopram oxalate 20 mg tablet 20 mg PO QAM 01/31/19 11/14/23 History omeprazole 20 mg capsule,delayed 20 mg PO QAM 01/31/19 11/14/23 History release apixaban 5 mg tablet (Eliquis) 5 mg PO BID 11/19/20 11/14/23 History hyoscyamine sulfate 0.375 mg 0.375 mg PO BID 07/25/23 11/14/23 History tablet,extended release,12 hr ipratropium 0.5 mg-albuterol 3 mg 3 ml inhalation Q6H PRN WHEEZING 07/25/23 11/14/23 History (2.5 mg base)/3 mL nebulization OR SOB soln ondansetron 4 mg disintegrating 4 mg PO Q6H PRN nausea and 07/25/23 11/14/23 Rx tablet vomiting #14 tabs dicyclomine 10 mg capsule 10 mg PO TID 08/15/23 11/14/23 History ergocalciferol (vitamin D2) 1,250 50,000 unit PO Q7D #7 caps 08/17/23 11/14/23 Rx mcg (50,000 unit) capsule clonazepam 0.5 mg tablet 0.25 mg PO Q OTHER DAY 11/14/23 11/14/23 History gabapentin 300 mg capsule 300 mg PO TID 11/14/23 11/14/23 History glycopyrrolate 1 mg tablet 1 mg PO HS 11/14/23 11/14/23 History mirtazapine 15 mg tablet 15 mg PO HS 11/14/23 11/14/23 History Past Med/Surg History Medical History COVID-19 History of pulmonary embolism ADD (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 GERD (gastroesophageal reflux disease) ALS (amyotrophic lateral sclerosis) Surgical History History of vasectomy H/O rhinoplasty S/P left knee arthroscopy Family History Father Pulmonary embolism Mother Hypertension Social History Smoking Status: Never smoker Second Hand Exposure: No; Do You Dip or Chew Tobacco: No; Hx Alcohol Use: No Hx Substance Use: No Preferred Language: Thai Communication Ability: Impaired 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 Heart- regular rhythm; no murmur, no gallop. Abdomen- absent bowel sounds, soft, nontender, no distension. Extremities- mild pretibial edema, no erythema seen. Neuro- alert, oriented x 3; PERRL, no facial palsy; no dysarthria; not able to move extremities. Skin- warm & dry Results & Data Results & Data Vital Signs (Past 12 Hours) Vital Signs Temp Pulse Pulse Pulse Resp BP BP 11/15/23 00:00 116 H 20 118/85 11/14/23 23:49 11/14/23 22:55 110 H 11/14/23 22:10 115 H 20 132/90 11/14/23 22:01 110 H 20 11/14/23 21:39 109 H 26 H 136/93 11/14/23 20:27 110 H 25 H 11/14/23 19:38 22 11/14/23 19:36 11/14/23 19:36 11/14/23 18:48 110 H 11/14/23 18:29 36.9 C 119 H 15 150/113 H Pulse Ox O2 Del Method O2 Flow Rate FiO2 11/15/23 00:00 98 Oxymask 5 11/14/23 23:49 96 Oxymask, High Flow Nasal Cannula 40 11/14/23 22:55 11/14/23 22:10 97 High Flow Nasal Cannula 40 40 11/14/23 22:01 97 High Flow Nasal Cannula 40 40 11/14/23 21:39 High Flow Nasal Cannula 40 11/14/23 20:27 93 High Flow Nasal Cannula 40 50 11/14/23 19:38 93 Room Air 11/14/23 19:36 Room Air 11/14/23 19:36 Room Air 11/14/23 18:48 11/14/23 18:29 97 Nasal Cannula 4 Diagnostic Findings Laboratory Results WBC 11.94 K/ul (4.8-10.8) H 11/14/23 19:30 RBC 5.05 M/uL (4.70-6.10) 11/14/23 19:30 Hgb 14.6 g/dl (14.0-18.0) 11/14/23 19:30 Hct 45.6 % (42.0-52.0) 11/14/23 19:30 MCV 90.3 fL (80.0-100.0) 11/14/23 19:30 MCH 28.9 pg (25.0-34.0) 11/14/23 19: MCHC 32.0 g/dL (32.0-36.0) 11/14/23: RDW Std Deviation 40.5 fL (36.4-46.3) 11/14/23: RDW Coeff of Hussain 12.4 % (11.5-14.5) 11/14/23: Plt Count 241 K/uL (130-400) 11/14/23: MPV 11.8 fL (9.4-12.4) 11/14/23 19: Immature Gran % (Auto) 0.3 % 11/14/23 19: Neut % (Auto) 87.9 % 11/14/23 19: Lymph % (Auto) 7.2 % 11/14/23: [place] % (Auto) 3.4 % 11/14/23 19: Eos % (Auto) 0.6 % 11/14/23: Baso % (Auto) 0.6 % 11/14/23 19:30 Neut # (Auto) 10.51 K/uL (1.40-6.50) H 11/14/23 19: Lymph # (Auto) 0.86 K/uL (1.20-3.40) L 11/14/23 19:30 [place] # (Auto) 0.40 K/uL (0.11-0.59) 11/14/23 19: Eos # (Auto) 0.07 K/uL (0.00-0.50) 11/14/23: Baso # (Auto) 0.07 K/uL (0.00-0.20) 11/14/23: Immature Gran # (Auto) 0.03 K/uL (0.01-0.20) 11/14/23 19: PT 11.4 Seconds (9.0-12.0) 11/14/23 19: INR 1.0 (0.9-1.1) 11/14/23 19: APTT 28 Seconds (21-31) 11/14/23: PTT Ratio 1.0 11/14/23 19: Sodium 139 mmol/L (136-145) 11/14/23 19:30 Potassium 4.1 mmol/L (3.5-5.1) 11/14/23 19:30 Chloride 100 mmol/L (98-107) 11/14/23 19:30 Carbon Dioxide 30 mmol/L (21-32) 11/14/23 19:30 Anion Gap 9 (3-11) 11/14/23 19:30 BUN 8 mg/dl (6-23) 11/14/23 19:30 Creatinine 0.22 mg/dl (0.6-1.4) L 11/14/23 19:30 Est Cr Clr Drug Dosing 396.1 ml/min 11/14/23 19:30 Est GFR ( Amer) > 150.0 ml/min 11/14/23 19:30 Est GFR (Non-Af Amer) > 150.0 ml/min 11/14/23 19:30 BUN/Creatinine Ratio 36.4 (10-20) H 11/14/23 19:30 Glucose 103 mg/dl (70-99(Fasting)) H 11/14/23 19:30 Lactate 1.1 mmol/L (0.4-2.0) 11/14/23 21:13 Calcium 9.6 mg/dl (8.6-10.3) 11/14/23 19:30 Total Bilirubin 0.5 mg/dl (0.2-1.0) 11/14/23 19:30 AST 25 U/L (13-39) 11/14/23 19:30 ALT 17 U/L (7-52) 11/14/23 19:30 Alkaline Phosphatase 72 U/L (34-104) 11/14/23 19:30 Troponin I High Sens 4.9 pg/ml (0-20) 11/14/23 19:30 Total Protein 7.6 gm/dl (6.0-8.3) 11/14/23 19:30 Albumin 4.3 gm/dl (3.4-5.0) 11/14/23 19:30 Globulin 3.3 gm/dl (2.5-4.0) 11/14/23 19:30 Albumin/Globulin Ratio 1.3 (0.9-2) 11/14/23 19:30 Procalcitonin 0.05 ng/ml (0-0.5) 11/14/23 19:30 Urine Color Yellow 11/14/23 22:10 Urine Appearance Clear (Clear) 11/14/23 22:10 Urine pH 6.5 (4.5-7.5) 11/14/23 22:10 Ur Specific [place] 1.025 (1.000-1.030) 11/14/23 22:10 Urine Protein Negative (Negative) 11/14/23 22:10 Urine Glucose (UA) Negative (Negative) 11/14/23 22:10 Urine Ketones 1+ (Negative) H 11/14/23 22:10 Urine Blood Negative (Negative) 11/14/23 22:10 Urine Nitrite Negative (Negative) 11/14/23 22:10 Urine Bilirubin Negative (Negative) 11/14/23 22:10 Urine Urobilinogen Negative (Negative) 11/14/23 22:10 Ur Leukocyte Esterase Negative (Negative) 11/14/23 22:10 Adenovirus (PCR) Not Detected (NotDetected) 11/14/23 20:28 B. pertussis DNA (PCR) Not Detected (NotDetected) 11/14/23 20:28 B.parapertussis DNA PCR Not Detected (NotDetected) 11/14/23 20:28 C. pneumoniae DNA (PCR) Not Detected (NotDetected) 11/14/23 20:28 Coronavirus OC43 (PCR) Not Detected (NotDetected) 11/14/23 20:28 Coronavirus HKU1 (PCR) Not Detected (NotDetected) 11/14/23 20:28 Coronavirus 229E (PCR) Not Detected (NotDetected) 11/14/23 20:28 SARS-CoV-2 (PCR) Not Detected (NotDetected) 11/14/23 20:28 Coronavirus NL63 (PCR) Not Detected (NotDetected) 11/14/23 20:28 Human Metapneumovir PCR Not Detected (NotDetected) 11/14/23 20:28 Influenza Type A (PCR) Not Detected (NotDetected) 11/14/23 20:28 Influenza Type B (PCR) Not Detected (NotDetected) 11/14/23 20:28 M. pneumoniae (PCR) Not Detected (NotDetected) 11/14/23 20:28 Parainfluenza 1 (PCR) Not Detected (NotDetected) 11/14/23 20:28 Parainfluenza 2 (PCR) Not Detected (NotDetected) 11/14/23 20:28 Parainfluenza 3 (PCR) Not Detected (NotDetected) 11/14/23 20:28 Parainfluenza 4 (PCR) Not Detected (NotDetected) 11/14/23 20:28 RSV (PCR) Not Detected (NotDetected) 11/14/23 20:28 Entero/Rhino (PCR) Not Detected (NotDetected) 11/14/23 20:28 Impressions Chest X-Ray 11/14/23 18:51 SINGLE VIEW CHEST CLINICAL HISTORY: Atypical chest pain. FINDINGS: An AP, portable, upright chest radiograph is compared to study dated 08/16/2023. Correlation is made with chest CT dated 02/28. The cardiomediastinal silhouette is unremarkable. Chronic interstitial thickening is similar to previous. There is bibasilar scarring/atelectasis. No airspace consolidation or large pleural effusion is identified. No pneumothorax is seen. The skeletal structures are osteopenic. The bony thorax is grossly intact. IMPRESSION: No acute cardiopulmonary abnormality. ACT 112: Negative or not required by law. Electronically signed by: Jose Ellington M.D. 11/14/2023 7:40 PM Abdomen/Pelvis CT 11/14/23 20:21 Exam(s): CT ABDOMEN + PELVIS Without Contrast EXAM: CT Abdomen and Pelvis Without Intravenous Contrast CLINICAL HISTORY: Reason for exam: abdominal pain. TECHNIQUE: Axial computed tomography images of the abdomen and pelvis without intravenous contrast. CTDI is 15.2 mGy and DLP is 870.66 mGy-cm. Automated exposure control was utilized for the study. A dose lowering technique was utilized adhering to the principles of ALARA. COMPARISON: No relevant prior studies available. FINDINGS: Lung bases: Bibasilar atelectasis, left greater than right. ABDOMEN: Liver: Small hepatic cysts. Gallbladder and bile ducts: Unremarkable. No calcified stones. No ductal dilation. Pancreas: Unremarkable. No ductal dilation. Spleen: Unremarkable. No splenomegaly. Adrenals: Unremarkable. No mass. Kidneys and ureters: Unremarkable. No obstructing stones. No hydronephrosis. Stomach and bowel: The stomach is markedly distended fluid and gas. Dilated loops of small bowel measuring up to 3.4 cm, characteristic of moderate small bowel obstruction. No clear transition point. No mucosal thickening. PELVIS: Appendix: Postoperative changes near the cecum may be secondary to prior appendectomy. The appendix is not visualized.. Bladder: Distended. No stones. Reproductive: Postoperative changes in the bilateral scrotal regions. ABDOMEN and PELVIS: Intraperitoneal space: Unremarkable. No free air. No significant fluid collection. Bones/joints: No acute fracture. No dislocation. Soft tissues: Unremarkable. Vasculature: Unremarkable. No abdominal aortic aneurysm. Lymph nodes: Unremarkable. No enlarged lymph nodes. IMPRESSION: The stomach is markedly distended fluid and gas. Dilated loops of small bowel measuring up to 3.4 cm, characteristic of moderate small bowel obstruction. No clear transition point. Electronically signed by: Minoo Mac MD 11/14/23 21:08 PM ECG Additional Comments: ECG. Normal sinus rhythm at rate 96. No acute ST changes seen. Code Status & VTE Plan VTE Prophylaxis Plan VTE Prophylaxis will be ordered: Yes
[2023-11-15] MEDS: OPTIRAY 320 125ml IV ONE (01:52)
[2023-11-15] MEDS ORDERED: Heparin IV Adult Wt-Based Standard *NO* INITIAL Bolus Protocol IV STA (02:14)
[2023-11-15] MEDS: LORazepam 0.5 MG TAB SL STA (02:17)
[2023-11-15] MEDS: D5W AND NSS 1,000 ML IV SCH (02:32)
[2023-11-15] MEDS: HEPARIN SODIUM/DEXTROSE 25,000 UNITS/500 ML BAG IV SCH (02:32)
--- NOTE | 2023-11-15 03:02 | CT Scan Report ---
Exam(s): CTA CHEST IV Amt: 117 ML OPTIRAY 320 EXAM: CT Angiography Chest With Intravenous Contrast CLINICAL HISTORY: Reason for exam: PE. TECHNIQUE: Axial computed tomographic angiography images of the chest with intravenous contrast. CTDI is 13.46 mGy and DLP is 421.08 mGy-cm. Automated exposure control was utilized for the study. A dose lowering technique was utilized adhering to the principles of ALARA. MIP reconstructed images were created and reviewed. COMPARISON: 02/14/2020 FINDINGS: Pulmonary arteries: Unremarkable. No CT evidence of pulmonary embolism. Aorta: No acute findings. No thoracic aortic aneurysm. Lungs: Complete opacification of the left lower lobe bronchi and the medial posterior right lower lobe bronchi. Centrilobular opacities throughout the left lower lobe likely representing endobronchial spread of infection. Pleural space: Unremarkable. No significant effusion. No pneumothorax. Heart: Unremarkable. No cardiomegaly. No significant pericardial effusion. No evidence of RV dysfunction. Bones/joints: No acute fracture. No dislocation. Soft tissues: Unremarkable. Lymph nodes: Unremarkable. No enlarged lymph nodes. Liver: 1.2 cm simple cyst in the posterior right lobe of the liver. Stomach and bowel: Severe gastric distention. IMPRESSION: 1. No CT evidence of pulmonary embolism. 2. Complete opacification of the left lower lobe bronchi and the medial posterior right lower lobe bronchi with centrilobular opacities throughout the left lower lobe likely representing endobronchial spread of infection. 3. Severe gastric distention. Electronically signed by: Curt Pedraza M.D. 11/15/23 03:01 AM
[2023-11-15 04:22] LABS: Basophils # (auto) 0.03 K/uL (0.00-0.20); Basophils % (auto) 0.4 %; Hemoglobin 12.7 g/dl (14.0-18.0); Immature Granulocytes # (auto) 0.02 K/uL (0.01-0.20); Immature Granulocytes % (auto) 0.3 %; Lymphocytes % (auto) 9.9 %; Mean Corpuscular Hemoglobin 28.5 pg (25.0-34.0); Mean Corpuscular Volume 92.1 fL (80.0-100.0); Mean Platelet Volume 11.8 fL (9.4-12.4); Monocytes # (auto) 0.37 K/uL (0.11-0.59); Monocytes % (auto) 5.2 %; Neutrophils # (auto) 5.94 K/uL (1.40-6.50); Neutrophils % (auto) 84.2 %; Platelet Count 219 K/uL (130-400); RDW Coefficient of Variation 12.4 % (11.5-14.5); RDW Standard Deviation 41.6 fL (36.4-46.3); Red Blood Count 4.45 M/uL (4.70-6.10); White Blood Count 7.06 K/ul (4.8-10.8)
[2023-11-15 04:43] LABS: Anion Gap 6 (3-11); Blood Urea Nitrogen 9 mg/dl (6-23); Calcium 8.6 mg/dl (8.6-10.3); Carbon Dioxide 31 mmol/L (21-32); Chloride 102 mmol/L (98-107); Creatinine Clr Calc Pharmacy 435.8 ml/min; Est GFR (African American) > 150.0 ml/min; Est GFR (Non-African American) > 150.0 ml/min; Glucose 127 mg/dl (70-99(Fasting)); Magnesium 1.9 mg/dl (1.7-2.4); Potassium 3.6 mmol/L (3.5-5.1); Sodium 139 mmol/L (136-145)
[2023-11-15] MEDS: PIPER/TAZO 4.5g in D5W MINI-B 100 ML IV ONE (06:52)
--- NOTE | 2023-11-15 07:42 | Electrocardiogram Report ---
Test Reason : Blood Pressure : / mmHG Vent. Rate : 096 BPM Atrial Rate : 096 BPM P-R Int : 128 ms QRS Dur : 084 ms QT Int : 366 ms P-R-T Axes : 043 060 078 degrees QTc Int : 462 ms Normal sinus rhythm Abnormal ECG When compared with ECG of 25-JUL-2023 12:01, T wave inversion no longer evident in Lateral leads Criteria for Possible Old Septal infarct no longer present Confirmed by Keith Sanz ([id number]) on 11/15/2023 7:42:16 AM Referred By: REFERRED SELF Confirmed By:Keith Sanz
[2023-11-15] MEDS: DOXYCYCLINE HYCLATE 100 MG in DEXTROSE 5% MINI-B 100 ML IV SCH (08:21)
[2023-11-15] MEDS: ACETAMINOPHEN 1,000 MG/100 ML VIAL IV PRN (08:21)
--- OUTSIDE RECORDS SUMMARY | 2023-11-15 09:31 | External Medical Summary | Summary of Care ---
Author Name Unknown Organization [facility] Address [address] [place] [address] Phone [phone] Care Team Providers Care Photonics Technician Name Role Phone Keith Cross MD Primary Care Provider [phone] Reason for Visit * Reason Onset Date Comments Hospital Follow-Up 08/18/2023 MARI Encounter Details Date Type Department Care Team ([facility] st Contact Info) Description 08/18/2023 Telephone [place] [address] [place] [address] Vandana England, FARHAT Hospital Follow-Up (MARI) Allergies Active Allergy Reactions Criticality Noted Date Comments Tramadol Hcl 12/08/2011 Gi upset documented as of this encounter (statuses as of 08/21/2023) Medications Medication Sig Dispensed Refills Start Date [...] 120 Capsule 5 06/19/2023 Active Neomycin-Polymyxin -HC [id number] Otic Solution Administer 4 Drops into ears [...] TIMES DAILY 180 Tablet 0 08/07/2023 Active Ondansetron HCl 4 MG Oral Tablet Take 1 Tablet by mouth every 6 hours as needed for Nausea. 30 Tablet 0 08/18/2023 Active documented as of this encounter (statuses as of 08/21/2023) Active Problems Problem Noted Date Diagnosed Date Depression with anxiety 06/16/2023 Personal history of DVT (deep vein thrombosis) 0 04/09/2021 History of pulmonary embolism 04/09/2021 ALS (amyotrophic lateral sclerosis) 05/02/2016 Orthostatic hypotension 12/18/2015 GERD (gastroesophageal reflux disease) 6 Irritable bowel syndrome with diarrhea 1 Attention deficit disorder without hyperactivity documented as of this encounter (statuses as of 08/21/2023) Resolved Problems Problem Noted Date Diagnosed Date [...] as of this encounter (statuses as of 08/21/2023) Immunizations Name Administration Dates Next Due COVID-19 mRNA, LNP-s, No Pre serve, 2-Dose Series (Moderna) 02/01/2021,12/28/2020 SEASONAL INFLUENZA, PF, 6 M & Above, IM , (FLULAVAL or FLUZONE) 06/16/2023,07/26/2022,07/09/2021, 0 20,07/05/2018 Season Influenza, Cell Culte r, 18+ Yrs, [...] encounter Miscellaneous Notes * Telephone Encounter - Vandana England RN - 08/18/2023 1:14 PM EST Transitions of Care Note Reason for Referral:Recent Admission Phone visit for follow up: MRAI #1 Admitted to: [facility], Date: 08/15/2023 Discharged to: Home, Date: 08/17/2023 Diagnosis driving hospitalization: Sepsis, UTI in the setting of ALS and recent Covid Infection Attempted MARI - no answer. Message left to return call [phone] or . Vandana England RN Transitions of Care Note Reason for Referral:Recent Admission Phone visit for follow up: MARI #2 Admitted to: [facility], Date: 08/15/2023 Discharged to: Home, Date: 08/17/2023 Diagnosis driving hospitalization: Sepsis, UTI in the setting of ALS and recent Covid Infection Attempted MARI - no answer. Message left to return call [phone] or . Vandana England RN documented in this encounter Plan of Treatment Upcoming Encounters Date Type Department Care Team (Late st Contact Info) Description 08/23/2023 11:00 AM EST Office Visit [facility] [address] [place] [phone] Keith Cross MD [address] [place] [phone] 06/17/2024 9:00 AM EDT Office Visit [facility] [address] [place] [address] Keith Cross MD [address] [place] [phone] Health Maintenance Due Date Last Done Comments [...] this encounter Medical Devices Implanted Type Area Truck Driver Heavy Device Identifier Shelf Expiration Date Model / Serial / Lot Graft Bone Cartilage Costl 6cm - [id number] Implanted:Qty: 1 on 06/22/2016 by Any Tovar MD at [facility] N/A: Nose [employer] 04/16/2021 [id number] / / documented as of this encounter Advance Directives Latest Code Status on File Code Status Date Activated Date Inactivated Comments Full Code 07/24/2015 7:58 AM 07/24/2015 3:54 PM Thi s order reflects the patients wishes and were consensually agreed upon. Care Teams Photonics Technician Relationship Specialty Start Date End Date Keith Cross MD [address] [place] [id number] PCP - General Family Medicine 03/23/21 documented as of this encounter
--- OUTSIDE RECORDS SUMMARY | 2023-11-15 09:31 | External Medical Summary | Summary of Care ---
Author Name Unknown Organization [facility] Address [address] [place] [address] Phone [phone] Care Team Providers Care Florist Helper Name Role Phone Keith Cross MD Primary Care Provider [phone] Reason for Visit * Reason Onset Date Comments Hospital Follow-Up Covid 4 weeks ago, but went to hospital for Chest pain and dehydrated. That's when they found covid. Hospital Follow-Up 08/23/2023 Encounter Details Date Type Department Care Team (Late st Contact Info) Description 08/23/2023 11:00 AM EST Office [facility] [address] [facility] [place] [address] Keith Cross MD [address] [place] [address] Hospital discharge follow-up*; ALS (amyotrophic lateral sclerosis) (HCC); Personal history of DVT (deep vein thrombosis); History of pulmonary embolism; Irritable bowel syndrome with diarrhea Allergies Active Allergy Reactions Criticality Noted Date Comments Tramadol Hcl 12/08/2011 Gi upset documented as of this encounter (statuses as of 08/23/2023) Medications Medication Sig Dispensed Refills Start Date End Date Status escitalopram (LEXAPRO) 10 MG Tablet Take 2 Tablets by mouth in the morning. 0 04/28/2016 Active Amphetamine-Dext roamphetamine 30 MG Tablet Take 20 mg by mouth in the morning and 20 mg before bedtime. 30mg in the morning and 30 mg at lunch. 0 Active Multiple Vitamins-Mineral s (MULTIVITAMIN ADULT) TABS Take by mouth. 0 Active Mirtazapine 30 MG Oral Tablet Take 1 Tablet by mouth at bedtime. 30 Tab 5 04/29/2020 Active clonazePAM 0.5 MG Oral Tablet (KlonoPIN) Take 1 Tablet (0.5 mg) by mouth every night at bedtime. 90 Tablet 1 07/18/2022 Active Additional Information Patient taking differently: 0.25 mgOral QHS, Reported on 08/23/2023 Omeprazole 20 MG Oral Capsule Delayed Release (PriLOSEC)Indica tions:Gastroesop hageal reflux disease without esophagitis 1 daily in the AM 90 Capsule 3 09/29/2022 Active Dicyclomine HCl 10 MG Oral Capsule (Bentyl) TAKE 1 CAPSULE BY MOUTH FOUR TIMES DAILY NEEDED NEEDED FOR DIARRHEA AND ABDOMINAL PAIN 120 Capsule 5 06/19/2023 Active Neomycin-Polymyx in-HC 3.5-52413-8 Otic Solution Administer 4 Drops into ears [...] or chew 60 Tablet 2 06/19/2023 Active Apixaban 5 MG Oral Tablet (Eliquis) TAKE 1 TABLET BY MOUTH TWO TIMES DAILY 180 Tablet 0 08/07/2023 Active Ondansetron HCl 4 MG Oral Tablet Take 1 Tablet by mouth every 6 hours as needed for Nausea. 30 Tablet 0 08/18/2023 Active Vitamin D (Ergocalciferol) 08454 UNIT Oral Capsule Take 1 Capsule by mouth once a week. 0 Active polyethylene glycol 3350 119 gram OR POWD Take 119 g by mouth once. 0 Active Gabapentin 300 MG Oral Capsule (Neurontin) Take 1 Capsule by mouth in the morning and 1 Capsule at noon and 1 Capsule before bedtime. 90 Capsule 5 08/23/2023 Active Gabapentin 100 MG Oral Capsule (Neurontin) Take 3 Capsules by mouth in the morning and 3 Capsules at noon and 3 Capsules before bedtime. 0 04/13/2022 3 Discontinue d(Discharge d) Nirmatrelvir&Rit onavir 300/100 20 x 150 MG & 10 x 100MG Oral Tablet Therapy Pack (Paxlovid)Indica tions:NICHOLASID-19 Take 2 pink tablets of Nirmatrelvir and 1 white tablet of Ritonavir two times a day by mouth. 30 Tablet 0 07/26/2023 3 Discontinue d(Medicatio n List Clean Up) HYDROcodone Bit-Homatrop MBr 5-1.5 MG/5ML Oral Solution (Hycodan)Indicat ions:COVID-19 Take 5 mL by mouth every 6 hours as needed for Cough. 120 mL 0 07/26/2023 3 Discontinue d(Discharge d) documented as of this encounter (statuses as of 08/23/2023) Active Problems Problem Noted Date Diagnosed Date Depression with anxiety 06/16/2023 Personal history of DVT (deep vein thrombosis) 0 04/09/2021 History of pulmonary embolism 04/09/2021 ALS (amyotrophic lateral sclerosis) 05/02/2016 Orthostatic hypotension 12/18/2015 GERD (gastroesophageal reflux disease) 6 Irritable bowel syndrome with diarrhea 1 Attention deficit disorder without hyperactivity documented as of this encounter (statuses as of 08/23/2023) Resolved Problems Problem Noted Date Diagnosed Date [...] as of this encounter (statuses as of 08/23/2023) Immunizations Name Administration Dates Next Due COVID-19 mRNA, LNP-s, No Pre serve, 2-Dose Series (Moderna) 02/01/2021,12/28/2020 Season Influenza, Cell Cultu re, 18+ Yrs, With Preserv (Flucelvax) 07/25/2013 Seasonal Influenza, PF, 6 M & above, IM , (FluLaval or Fluzone) 06/16/2023,07/26/2022,07/09/2021, 0 20,07/05/2018 Seasonal Influenza, Quadriva lent, No Preserve, IM [...] on file documented as of this encounter Last Filed Vital Signs Vital Sign Reading Time Taken Comments Blood Pressure 110/78 08/23/2023 11:06 AM EST Pulse 88 08/23/2023 11:06 AM EST Temperature - - Respiratory Rate - - Oxygen Saturation - - Inhaled Oxygen Concentration - - Weight - - Height - - Body Mass Index - - documented in this encounter Progress Notes * Keith Cross MD - 08/23/2023 11:07 AM EST SUBJECTIVE: Alberto Moffett is a 48 year old male. Chief Complaint Patient presents with Hospital Follow-Up Covid 4 weeks ago, but went to hospital for Chest pain and dehydrated. That's when they found covid. Hospital Follow-Up HPI: Here with s/o for hospital follow up for COVID with dehydration. He had a rough clinical course dueto his ALS but came out of things relatively unscathed. We reviewed his medication and hospitalization today. Patient Active Problem List Diagnosis Code Irritable bowel syndrome with diarrhea K58.0 Attention deficit disorder without hyperactivity F98.8 GERD (gastroesophageal reflux disease) K21.9 Orthostatic hypotension I95.1 ALS (amyotrophic lateral sclerosis) ([facility]) G12.21 Personal history of DVT (deep vein thrombosis) Z86.718 History of pulmonary embolism Z86.711 Depression with anxiety F41.8 Current Outpatient Medications Medication Sig Dispense Refill escitalopram (LEXAPRO) 10 MG Tablet Take 2 Tablets by mouth in the morning. Amphetamine-Dextroamphetamine 30 MG Tablet Take 20 mg by mouth in the morning and 20 mg before bedtime. 30mg in the morning and 30 mg at lunch. Multiple Vitamins-Minerals (MULTIVITAMIN ADULT) TABS Take by mouth. Mirtazapine 30 MG Oral Tablet Take 1 Tablet by mouth at bedtime. 30 Tab 5 clonazePAM 0.5 MG Oral Tablet (KlonoPIN) Take 1 Tablet (0.5 mg) by mouth every night at bedtime. (Patient taking differently: Take 0.5 Tablets by mouth every night at bedtime.) 90 Tablet 1 Omeprazole 20 MG Oral Capsule Delayed Release (PriLOSEC) 1 daily in the AM 90 Capsule 3 Dicyclomine HCl 10 MG Oral Capsule (Bentyl) TAKE 1 CAPSULE BY MOUTH FOUR TIMES DAILY NEEDED NEEDED FOR DIARRHEA AND ABDOMINAL PAIN 120 Capsule 5 Oajqeans-Gocqsvunw-UA 3.5-51308-9 Otic Solution Administer 4 Drops into ears in the morning and 4 Drops at noon and 4 Drops before bedtime. To affected ear, for 10 days.. 10 mL 1 Hyoscyamine Sulfate ER 0.375 MG Oral Tablet Extended Release 12 Hour (Levbid) Take 1 Tablet by mouth 2 times a day as needed for Cramping. For abdominal pain. Do not cut, crush or chew 60 Tablet 2 Apixaban 5 MG Oral Tablet (Eliquis) TAKE 1 TABLET BY MOUTH TWO TIMES DAILY 180 Tablet 0 Ondansetron HCl 4 MG Oral Tablet Take 1 Tablet by mouth every 6 hours as needed for Nausea. 30 Tablet 0 Vitamin D (Ergocalciferol) 78106 UNIT Oral Capsule Take 1 Capsule by mouth once a week. polyethylene glycol 3350 119 gram OR POWD Take 119 g by mouth once. Gabapentin 300 MG Oral Capsule (Neurontin) Take 1 Capsule by mouth in the morning and 1 Capsule at noon and 1 Capsule before bedtime. 90 Capsule 5 No current facility-administered medications for this visit. Allergy: Review of patient's allergies indicates: Allergen Reactions Ultram [Tramadol Hcl] Gi upset OBJECTIVE: BP 110/78 | Pulse 88 Gen: wheelchair bound 2/2 ALS; no distress Lungs: no rhonchi or wheeze Heart: rrr, no mrg Ext: muscle wasting noted; no edema ASSESSMENT AND PLAN: (Z09) Hospital discharge follow-up (primary encounter diagnosis) Plan: DISCH MED RECON CUR MED LIS (G12.21) ALS (amyotrophic lateral sclerosis) (HCC) Plan: stable -addition of gabapentin 300 mg TID has helped immensely (Z86.718) Personal history of DVT (deep vein thrombosis) Plan: continue eliquis (Z86.711) History of pulmonary embolism Plan: see above (K58.0) Irritable bowel syndrome with diarrhea Plan: stable Follow up as needed. No other complaints were offered at this time. Keith Cross MD documented in this encounter Plan of Treatment Upcoming Encounters Date Type Department Care Team (Late st Contact Info) Description 06/17/2024 9:00 AM EDT Office Visit Family Practice [facility] [address] [place] [place] [address] Keith Cross MD [address] [place] [place] [address] Health Maintenance Due Date Last Done Comments [...] this encounter Medical Devices Implanted Type Area Thermodynamics Professor Device Identifier Shelf Expiration Date Model / Serial / Lot Graft Bone Cartilage Costl 6cm - [id number] Implanted:Qty: 1 on 06/22/2016 by Any Tovar MD at [facility] N/A: Nose [employer] 04/16/2021 [id number] / / documented as of this encounter Visit Diagnoses Diagnosis Hospital discharge follow-up- Primary Other follow-up examination ALS (amyotrophic lateral sclerosis) (HCC) Amyotrophic lateral sclerosis Personal history of DVT (deep vein thrombosis) Personal history of venous thrombosis and embolism History of pulmonary embolism Personal history of pulmonary embolism Irritable bowel syndrome with diarrhea Irritable bowel syndrome documented in this encounter Advance Directives Latest Code Status on File Code Status Date Activated Date Inactivated Comments Full Code 07/24/2015 7:58 AM 07/24/2015 3:54 PM Thi s order reflects the patients wishes and were consensually agreed upon. Care Teams Florist Helper Relationship Specialty Start Date End Date Keith Cross MD [address] [facility] [place] [address] PCP - General Family Medicine 03/23/21 documented as of this encounter"
--- OUTSIDE RECORDS SUMMARY | 2023-11-15 09:31 | External Medical Summary | Summary of Care ---
Author Name Unknown Organization [facility] Address [address] [place] [address] Phone [phone] Care Team Providers Care Mold Carpenter Name Role Phone Jaclyn Gamboa MD Primary Care Provider [phone] Reason for Visit * Reason Comments eRx-Medication Refill Encounter Details Date Type Department Care Team (Late st Contact Info) Description 09/01/2023 Refill Family Practice [facility] [address] [place] [address] Jaclyn Gamboa MD [address] [place] [address] Allergies Active Allergy Reactions Criticality Noted Date Comments Tramadol Hcl 12/08/2011 Gi upset documented as of this encounter (statuses as of 09/05/2023) Medications Medication Sig Dispensed Refills Start Date [...] 120 Capsule 5 06/19/2023 Active Neomycin-Polymyx in-HC 3.5-74443-0 Otic Solution Administer 4 Drops into ears in the morning and 4 Drops at noon and 4 Drops before bedtime. To affected ear, for 10 days.. 10 mL 1 06/19/2023 Active Apixaban 5 MG Oral Tablet (Eliquis) TAKE 1 TABLET BY MOUTH TWO TIMES DAILY 180 Tablet 0 08/07/2023 Active Ondansetron HCl 4 MG Oral Tablet Take 1 Tablet by mouth every 6 hours as needed for Nausea. 30 Tablet 0 08/18/2023 Active polyethylene glycol 3350 119 gram OR POWD Take 119 g by mouth once. 0 Active Gabapentin 300 MG Oral Capsule (Neurontin) Take 1 Capsule by mouth in the morning and 1 Capsule at noon and 1 Capsule before bedtime. 90 Capsule 5 08/23/2023 Active Hyoscyamine Sulfate ER 0.375 MG Oral Tablet Extended Release 12 Hour (Levbid) TAKE 1 TABLET BY MOUTH 2 TIMES A DAY NEEDED FOR CRAMPING OR ABDOMINAL PAIN. DO NOT CUT, CRUSH, OR CHEW 60 Tablet 2 09/05/2023 Active Hyoscyamine Sulfate ER 0.375 MG Oral Tablet Extended Release 12 Hour (Levbid) Take 1 Tablet by mouth 2 times a day as needed for Cramping. For abdominal pain. Do not cut, crush or chew 60 Tablet 2 06/19/2023 09/05/20 23 Discontinued documented as of this encounter (statuses as of 09/05/2023) Active Problems Problem Noted Date Diagnosed Date Depression with anxiety 06/16/2023 Personal history of DVT (deep vein thrombosis) 0 04/09/2021 History of pulmonary embolism 04/09/2021 ALS (amyotrophic lateral sclerosis) 05/02/2016 Orthostatic hypotension 12/18/2015 GERD (gastroesophageal reflux disease) 6 Irritable bowel syndrome with diarrhea 1 Attention deficit disorder without hyperactivity documented as of this encounter (statuses as of 09/05/2023) Resolved Problems Problem Noted Date Diagnosed Date [...] as of this encounter (statuses as of 09/05/2023) Immunizations Name Administration Dates Next Due COVID-19 [...] Telephone Encounter - Jaclyn Gamboa MD - 09/05/2023 9:21 AM ESTSigned Prescriptions: Disp Refills Hyoscyamine Sulfate ER 0.375 MG Oral Table*60 Tab*2 Sig: TAKE 1 TABLET BY MOUTH 2 TIMES A DAY NEEDED FOR CRAMPING OR ABDOMINAL PAIN. DO NOT CUT, CRUSH, OR CHEW Authorizing Provider: JACLYN GAMBOA * Telephone Encounter - Elham Moseley LPN - 09/05/2023 8:58 AM ESTPending Prescriptions: Disp Refills Hyoscyamine Sulfate ER 0.375 MG Oral Table*60 Tab*2 Sig: TAKE 1 TABLET BY MOUTH 2 TIMES A DAY NEEDED FOR CRAMPING OR ABDOMINAL PAIN. DO NOT CUT, CRUSH, OR CHEW * Telephone Encounter - Gloria Lindquist - 09/02/2023 5:19 AM ESTPending Prescriptions: Disp Refills Hyoscyamine Sulfate ER 0.375 MG Oral Table*60 Tab*2 Sig: TAKE 1TABLET BY MOUTH 2 TIMES A DAY NEEDED FOR CRAMPING OR ABDOMINAL PAIN. DO NOT CUT, CRUSH, OR CHEW-- documented in this encounter Plan of Treatment Upcoming Encounters Date Type Department Care Team (Late st Contact Info) Description 06/17/2024 9:00 AM EDT Office Visit [facility] [address] [place] [address] Jaclyn Gamboa MD [address] [place] [address] Health Maintenance Due Date Last Done Comments Hepatitis B (1 of 3 - 3-dose series) 1975 Lipid Panel 11/07/2017 11/07/2012 Cologuard 2020 Colonoscopy 2020 Colorectal Cancer Screening 2020 Fecal Occult Blood Test 2020 Sigmoidoscopy 2020 Depression Screening 02/25/2021 02/26/2020 COVID-19 Vaccine ( - 2022- season) 2023 02/01/2021, 12/28/2020 DTaP,Tdap,and [...] this encounter Medical Devices Implanted Type Area Kier Tender Device Identifier Shelf Expiration Date Model / Serial / Lot Graft Bone Cartilage Costl 6cm - [id number] Implanted:Qty: 1 on 06/22/2016 by Any Tovar MD at OR [facility] N/A: Nose [employer] 04/16/2021 [id number] / / documented as of this encounter Advance Directives Latest Code Status on File Code Status Date Activated Date Inactivated Comments Full Code 07/24/2015 7:58 AM 07/24/2015 3:54 PM Thi s order reflects the patients wishes and were consensually agreed upon. Care Teams Mold Carpenter Relationship Specialty Start Date End Date Jaclyn Gamboa MD [address] [facility] [place] [address] PCP - General Family Medicine 03/23/21 documented as of this encounter
--- OUTSIDE RECORDS SUMMARY | 2023-11-15 09:31 | External Medical Summary | Summary of Care ---
Author Name Unknown Organization [facility] Address [address] [place] [address] Phone [phone] Care Team Providers Care Ranch Hand Livestock Name Role Phone Jaclyn Gamboa MD Primary Care Provider [phone] Reason for Visit * Reason Comments eRx-Medication Refill Encounter Details Date Type Department Care Team (Late st Contact Info) Description 09/13/2023 Refill Family Practice [facility] [address] [place] [address] Jaclyn Gamboa MD [address] [facility] [place] [address] Encounter for long-term (current) use of medications*; Gastroesophageal reflux disease without esophagitis Allergies Active Allergy Reactions Criticality Noted Date Comments Tramadol Hcl 12/08/2011 Gi upset documented as of this encounter (statuses as of 09/14/2023) Medications Medication Sig Dispensed Refills Start Date [...] differently: 0.25 mgOral QHS, Reported on 08/23/2023 Dicyclomine HCl 10 MG Oral Capsule (Bentyl) TAKE 1 CAPSULE BY MOUTH FOUR TIMES DAILY NEEDED NEEDED FOR DIARRHEA AND ABDOMINAL PAIN 120 Capsule 5 06/19/2023 Active Neomycin-Polymyx in-HC 3.5-20559-7 Otic Solution Administer 4 Drops into ears [...] OR CHEW 60 Tablet 2 09/05/2023 Active Vitamin D (Ergocalciferol) 92906 UNIT Oral Capsule Take 1 Capsule by mouth once a week. 12 Capsule 0 09/05/2023 Active Omeprazole 20 MG Oral Capsule Delayed Release (PriLOSEC)Indica tions:Gastroesop hageal reflux disease without esophagitis TAKE 1 CAPSULE BY MOUTH EVERY MORNING 90 Capsule 1 09/14/2023 Active Omeprazole 20 MG Oral Capsule Delayed Release (PriLOSEC)Indica tions:Gastroesop hageal reflux disease without esophagitis 1 daily in the AM 90 Capsule 3 09/29/2022 09/14/19 24 Discontinued documented as of this encounter (statuses as of 09/14/2023) Active Problems Problem Noted Date Diagnosed Date Depression with anxiety 06/16/2023 Personal history of DVT (deep vein thrombosis) 0 04/09/2021 History of pulmonary embolism 04/09/2021 ALS (amyotrophic lateral sclerosis) 05/02/2016 Orthostatic hypotension 12/18/2015 GERD (gastroesophageal reflux disease) 6 Irritable bowel syndrome with diarrhea 1 Attention deficit disorder without hyperactivity documented as of this encounter (statuses as of 09/14/2023) Resolved Problems Problem Noted Date Diagnosed Date [...] as of this encounter (statuses as of 09/14/2023) Immunizations Name Administration Dates Next Due COVID-19 [...] encounter Miscellaneous Notes * Telephone Encounter - Jacquelyn Mahoney RPh - 09/14/2023 8:52 AM ESTSigned Prescriptions: Disp Refills Omeprazole 20 MG Oral Capsule Delayed Rele*90 Cap*1 Sig: TAKE 1CAPSULE BY MOUTH EVERY MORNINGAuthorizing Provider: JACLYN GAMBOA User: JACQUELYN MAHONEY- documented in this encounter Plan of Treatment Upcoming Encounters Date Type Department Care Team (Late st Contact Info) Description 06/17/2024 9:00 AM EDT Office Visit Family [facility] [address] [facility] [place] [address] Jaclyn Gamboa MD [address] [place] [address] Scheduled Orders Name Type Priority Associated Diagnoses Orde r Schedule VITAMIN B12 Lab Routine Encounter for long-term (current) use of medications Expected: 09/21/2023 (Approximate), Expires: 09/14/2024 MAGNESIUM Lab Routine Encounter for long-term (current) use of medications Expected: 09/21/2023 (Approximate), Expires: 09/14/2024 LIPID PANEL WITH DIRECT LDL IF TG IS HIGH Lab Routine Encounter for long-term (current) use of medications Expected: 09/21/2023 (Approximate), Expires: 09/14/2024 Health Maintenance Due Date Last Done Comments [...] this encounter Medical Devices Implanted Type Area Billing And Quality Technician Device Identifier Shelf Expiration Date Model / Serial / Lot Graft Bone Cartilage Costl 6cm - [id number] Implanted:Qty: 1 on 06/22/2016 by Any Tovar MD at OR [facility] N/A: Nose [employer] 04/16/2021 [id number] / / documented as of this encounter Visit Diagnoses Diagnosis Encounter for long-term (current) use of medications- Primary Encounter for long-term (current) use of other medications Gastroesophageal reflux disease without esophagitis Esophageal reflux documented in this encounter Advance Directives Latest Code Status on File Code Status Date Activated Date Inactivated Comments Full Code 07/24/2015 7:58 AM 07/24/2015 3:54 PM Thi s order reflects the patients wishes and were consensually agreed upon. Care Teams Ranch Hand Livestock Relationship Specialty Start Date End Date Jaclyn Gamboa MD [address] [place] [address] PCP - General Family Medicine 03/23/21 documented as of this encounter
--- OUTSIDE RECORDS SUMMARY | 2023-11-15 09:31 | External Medical Summary | Summary of Care ---
Author Name Unknown Organization [facility] Address [address] [place] [address] Phone [phone] Care Team Providers Care Practical Nursing Teacher Name Role Phone Jaclyn Gamboa MD Primary Care Provider [phone] [phone] Reason for Visit * Reason Comments eRx-Medication Refill Encounter Details Date Type Department Care Team (Late st Contact Info) Description 11/01/2023 Refill Family Practice [facility] [address] [place] [address] Jaclyn Gamboa MD [address] [place] [address] Allergies Active Allergy Reactions Criticality Noted Date Comments Tramadol Hcl 12/08/2011 Gi upset documented as of this encounter (statuses as of 11/01/2023) Medications Medication Sig Dispensed Refills Start Date [...] 120 Capsule 5 06/19/2023 Active Neomycin-Polymyx in-HC 3.5-22923-3 Otic Solution Administer 4 Drops into ears in the morning and 4 Drops at noon and 4 Drops before bedtime. To affected ear, for 10 days.. 10 mL 1 06/19/2023 Active Ondansetron HCl 4 MG Oral Tablet [...] OR CHEW 60 Tablet 2 09/05/2023 Active Omeprazole 20 MG Oral Capsule Delayed Release (PriLOSEC)Indica tions:Gastroesop hageal reflux disease without esophagitis TAKE 1 CAPSULE BY MOUTH EVERY MORNING 90 Capsule 1 09/14/2023 Active Vitamin D (Ergocalciferol) 02785 UNIT Oral Capsule Take 1 Capsule by mouth once a week. 12 Capsule 0 10/06/2023 Active Apixaban 5 MG Oral Tablet (Eliquis) TAKE 1 TABLET BY MOUTH TWO TIMES DAILY 180 Tablet 0 11/01/2023 Active Apixaban 5 MG Oral Tablet (Eliquis) TAKE 1 TABLET BY MOUTH TWO TIMES DAILY 180 Tablet 0 08/07/2023 11/01/19 24 Discontinued documented as of this encounter (statuses as of 11/01/2023) Active Problems Problem Noted Date Diagnosed Date Depression with anxiety 06/16/2023 Personal history of DVT (deep vein thrombosis) 0 04/09/2021 History of pulmonary embolism 04/09/2021 ALS (amyotrophic lateral sclerosis) 05/02/2016 Orthostatic hypotension 12/18/2015 GERD (gastroesophageal reflux disease) 6 Irritable bowel syndrome with diarrhea 1 Attention deficit disorder without hyperactivity documented as of this encounter (statuses as of 11/01/2023) Resolved Problems Problem Noted Date Diagnosed Date [...] medical exam 11/07/2012 020 Overview: Sees Dr Rivera--[place] Screening for cardiovascular condition 11/07/2012 05/22/2015 Nausea [...] as of this encounter (statuses as of 11/01/2023) Immunizations Name Administration Dates Next Due COVID-19 [...] Telephone Encounter - Jaclyn Gamboa MD - 11/01/2023 4:48 PM ESTSigned Prescriptions: Disp Refills Apixaban 5 MG Oral Tablet (Eliquis) 180 Ta*0 Sig: TAKE 1 TABLET BY MOUTH TWO TIMES DAILY Authorizing Provider: JACLYN GAMBOA * Telephone Encounter - Jose Manzanares [facility] - 11/01/2023 3:05 PM ESTPending Prescriptions: Disp Refills Eliquis 5 MG Oral Tablet [Pharmacy Med Nam*180 Ta*0 Sig: TAKE 1 TABLET BY MOUTH TWO TIMES DAILY * Telephone Encounter - Jose Manzanares [facility] - 11/01/2023 3:04 PM EST Unable to authorize medication refills at this time. Patient did not meet protocol requirements. Patient needs current labs. Please approve if appropriate. Thanks, Jose Manzanares, R.Ph. Clinical Pharmacist [facility] [phone] 11/01/2023,3:04 PM Pending Prescriptions: Disp Refills Eliquis 5 MG Oral Tablet [Pharmacy Med Nam*180 Ta*0 Sig: TAKE 1 TABLET BY MOUTH TWO TIMES DAILY Last Visit: 08/23/2023 (in office), 04/29/2020 (telemedicine) Next Visit: 06/17/2024 If no future appointments scheduled, and last appointment is greater than a year ago, please schedule patient for a follow-up appointment Last date the medication was ordered: 08-07-23 Pharmacy: [id number]- [place] Is this request for a controlled substance?No [...] 9:00 AM EDT Office Visit Family Practice [facility] [address] [place] [address] Jaclyn Gamboa MD [address] [place] [address] Health Maintenance Due Date Last Done Comments Hepatitis B (1 of 3 - 19+ 3-dose series) 1994 Lipid Panel 11/07/2017 11/07/2012 Cologuard 2020 Colonoscopy [...] this encounter Medical Devices Implanted Type Area Casino Dealer Device Identifier Shelf Expiration Date Model / Serial / Lot Graft Bone Cartilage Costl 6cm - [id number] Implanted:Qty: 1 on 06/22/2016 by Any Tovar MD [place] [facility] [place]/A: Nose [employer] 04/16/2021 [id number] / / documented as of this encounter Advance Directives Latest Code Status on File Code Status Date Activated Date Inactivated Comments Full Code 07/24/2015 7:58 AM 07/24/2015 3:54 PM Thi s order reflects the patients wishes and were consensually agreed upon. Care Teams Practical Nursing Teacher Relationship Specialty Start Date End Date Jaclyn Gamboa MD [address] [facility] [place] [address] PCP - General Family Medicine 03/23/21 documented as of this encounter
--- OUTSIDE RECORDS SUMMARY | 2023-11-15 09:31 | External Medical Summary | Summary of Care ---
Author Name Unknown Organization [facility] Address [address] [place] [address] Phone [phone] Care Team Providers Care Head Refrigeration Engineer Name Role Phone Jaclyn Gamboa MD Primary Care Provider [phone] [phone] Reason for Visit * Reason Onset Date Comments Medication Refill 10/05/2023 Encounter Details Date Type Department Care Team (Late st Contact Info) Description 10/05/[address] [facility] [address] [facility] [place] [address] Jaclyn Gamboa MD [address] [place] [facility] [place] [address] Allergies Active Allergy Reactions Criticality Noted Date Comments Tramadol Hcl 12/08/2011 Gi upset documented as of this encounter (statuses as of 10/06/2023) Medications Medication Sig Dispensed Refills Start Date End Date Status escitalopram (LEXAPRO) 10 MG Tablet Take 2 Tablets by mouth in the morning. 0 04/28/2016 Active Amphetamine-Dextr oamphetamine 30 MG Tablet Take 20 mg by [...] ABDOMINAL PAIN 120 Capsule 5 06/19/2023 Active Neomycin-Polymyxi n-HC 3.5-92557-8 Otic Solution Administer 4 Drops into ears [...] Omeprazole 20 MG Oral Capsule Delayed Release (PriLOSEC)Indicat ions:Gastroesopha geal reflux disease without esophagitis TAKE 1 CAPSULE BY MOUTH EVERY MORNING 90 Capsule 1 09/14/2023 Active Vitamin D (Ergocalciferol) 33942 UNIT Oral Capsule Take 1 Capsule by mouth once a week. 12 Capsule 0 10/06/2023 Active Vitamin D (Ergocalciferol) 47069 UNIT Oral Capsule Take 1 Capsule by mouth once a week. 12 Capsule 0 09/05/2023 Discontinue d(Refill) documented as of this encounter (statuses as of 10/06/2023) Active Problems Problem Noted Date Diagnosed Date Depression with anxiety 06/16/2023 Personal history of DVT (deep vein thrombosis) 0 04/09/2021 History of pulmonary embolism 04/09/2021 ALS (amyotrophic lateral sclerosis) 05/02/2016 Orthostatic hypotension 12/18/2015 GERD (gastroesophageal reflux disease) 6 Irritable bowel syndrome with diarrhea 1 Attention deficit disorder without hyperactivity documented as of this encounter (statuses as of 10/06/2023) Resolved Problems Problem Noted Date Diagnosed Date [...] as of this encounter (statuses as of 10/06/2023) Immunizations Name Administration Dates Next Due COVID-19 [...] Telephone Encounter - Jaclyn Gamboa MD - 10/06/2023 12:05 PM ESTSigned Prescriptions: Disp Refills Vitamin D (Ergocalciferol) 35058 UNIT Oral*12 Cap*0 Sig: Take 1 Capsule by mouth once a week. Authorizing Provider: JACLYN GAMBOA * Telephone Encounter - Carolyn Abdullahi LPN - 10/05/2023 3:01 PM ESTPending Prescriptions: Disp Refills Vitamin D (Ergocalciferol) 45179 UNIT Oral*12 Cap*0 Sig: Take 1 Capsule by mouth once a week. * Telephone Encounter - Glenna Toribio OSA - 10/05/2023 12:02 PM EST Did you pend patient's preferred pharmacy and medication before forwarding?yes Pharmacy: [id number] [place] Pending Prescriptions: Disp Refills Vitamin D (Ergocalciferol) 58331 UNIT Ora*12 Cap*0 Sig: Take 1 Capsule by mouth once a week. Last Visit: 08/23/2023 (in office), 04/29/2020 (telemedicine) Next Visit: 06/17/2024 If no future appointments scheduled, and last appointment is greater than a year ago, please schedule patient for a follow-up appointment Last date the medication was ordered: 09.05.23 Is this request for a controlled substance?No [...] 9:00 AM EDT Office Visit Family Practice [facility] [address] [facility] [place] [address] Jaclyn Gamboa MD 132 [facility] [place] [address] Health Maintenance Due Date Last Done Comments [...] this encounter Medical Devices Implanted Type Area Relationship Consultant Device Identifier Shelf Expiration Date Model / Serial / Lot Graft Bone Cartilage Costl 6cm - [id number] Implanted:Qty: 1 on 06/22/2016 [place] T[place]ar [place] [facility] [place]A: Nose [employer] 04/16/2021 [id number] / / documented as of this encounter Advance Directives Latest Code Status on File Code Status Date Activated Date Inactivated Comments Full Code 07/24/2015 7:58 AM 07/24/2015 3:54 PM Thi s order reflects the patients wishes and were consensually agreed upon. Care Teams Head Refrigeration Engineer Relationship Specialty Start Date End Date Jaclyn Gamboa MD [address] [facility] [place] [address] PCP - General Family Medicine 03/23/21 documented as of this encounter
--- OUTSIDE RECORDS SUMMARY | 2023-11-15 09:31 | External Medical Summary | Continuity of Care Document ---
Author Name Unknown Organization [address] Claudine [place] [address] Address [address] [facility] [address] [place] [id number] Care Team Providers Care Technical Writing Lead/Mgr Name Role Phone Keith Cross Primary Care Physician [phone] [id number] Date[facility]s): 10/24/23 - 10/24/[address] [facility] [place] [address] [facility], [address], Entrance [address] [place] [address] [phone] Encounter Diagnosis Increased oropharyngeal secretions(Discharge Diagnosis) - 10/25/23 Spasm(Discharge Diagnosis) - 10/25/23 Amyotrophic lateral sclerosis(Discharge Diagnosis) - 10/25/23 Neuromuscular respiratory weakness(Discharge Diagnosis) - 10/25/23 Discharge Disposition: Home or Self Care Attending Physician: MD Shawna, [facility]3] Referring Physician: MD Cross Anthony J Allergies, Adverse Reactions, Alerts Substance Reaction Severity Status Ultram gi upset Active Immunizations Given and Recorded Vaccine Date Status Refusal Reason pneumococcal 23-valent vaccine 12/26/16 Given Medications Adderall Start: 07/21/16 9:46:00 EST, 20 mg =, PO, tid, Refills: 0 Start Date: 07/21/16 Status: Ordered albuterol-ipratropium 2.5 mg-0.5 mg/3 mL inhalation solution Start: 07/20/23 11:21:00 EST, 3 mL, inhaled, q6h, Disp# 180 mL, Refills: 3, PRN: as needed for shortness of breath or wheezing, Pharmacy: [id number] Start Date: 07/20/23 Stop Date: 07/14/24 Status: Ordered Benadryl Start: 04/17/23 12:28:00 EDT, 2 tabs, PO, Daily, unknown dose Start Date: 04/17/23 Status: Ordered clonazePAM 0.25 mg oral tablet, disintegrating Start: 07/19/23 12:23:00 EST, 1 tab, PO, qhs Start Date: 07/19/23 Status: Ordered dicyclomine 10 mg oral capsule TAKE 1 CAPSULE BY MOUTH FOUR TIMES DAILY NEEDED FOR DIARRHEA AND ABDOMINAL PAIN Start Date: 11/03/21 Status: Ordered Eliquis 5 mg oral tablet Start: 03/24/21 12:28:00 EDT, 1 tab, PO, bid Start Date: 03/24/21 Status: Ordered gabapentin Start: 05/30/22 11:39:00 EDT, See Instructions, 300mg qNoon, 600mg qHS Start Date: 05/30/22 Status: Ordered glycopyrrolate 1 mg oral tablet Start: 10/25/23 15:10:00 EST, 1 tab, PO, tid, Disp# 90 tab, Refills: 5, PRN: secretions, Pharmacy: [facility][id number] Start Date: 10/25/23 Stop Date: 04/22/24 Status: Ordered guaiFENesin 400 mg oral tablet Start: 10/25/23 15:11:00 EST, 1 tab, PO, qid, Disp# 120 tab, Refills: 5, PRN: secretions, Pharmacy:[id number] Start Date: 10/25/23 Stop Date: 04/22/24 Status: Ordered hyoscyamine 0.375 mg oral tablet, extended release TAKE 1 TABLET BY MOUTH 2 TIMES A DAY NEEDED FOR CRAMPING OR ABDOMINAL PAIN. DO NOT CUT, CRUSH, OR CHEW Start Date: 07/19/23 Status: Ordered Lexapro Start: 05/31/17 12:30:00 EDT, 20 mg =, PO, Daily Start Date: 05/31/17 Status: Ordered LORazepam 1 mg oral tablet Start: 10/20/20 10:40:00 EST, See Instructions, Disp# 120 tab, Refills: 3, TAKE 1 TO 2 TABLETS BY MOUTH AT BEDTIME NEEDED FOR SLEEP AND 1 TABLET IN THE AFTERNOON. MAY TAKE 1 TABLET EVERY 6 HOURS NEEDED FOR ANXIETY, Pharmacy: [facility]... Start Date: 10/20/20 Status: Ordered magnesium oxide 400 mg (241.3 mg elemental magnesium) oral tablet Start: 10/25/23 15:11:00 EST, 1 tab, PO, Daily, Disp# 30 tab, Refills: 5, Pharmacy: [facility][id number] Start Date: 10/25/23 Stop Date: 04/22/24 Status: Ordered mirtazapine Start: 12/28/22 12:27:00 EDT, 15 mg =, PO, qhs Start Date: 12/28/22 Status: Ordered multivitamin Start: 11/03/21 12:26:00 EST, 1 tab, PO, Daily Start Date: 11/03/21 Status: Ordered omeprazole Start: 07/21/16 9:47:00, 20 mg =, PO, Daily Start Date: 07/21/16 Status: Ordered pneumococcal vaccine (PPSV23) Start: 12/26/16 14:45:00, 0.5 mL, IM, ONCE, Disp# 0.5 mL, given to patient Start Date: 12/26/16 Status: Ordered Zofran 4 mg oral tablet Start: 07/15/19 12:29:00 EST, 1 tab, PO, bid, Disp# 60 tab, Refills: 1, PRN: as needed for nausea/vomiting, Pharmacy: [id number] Start Date: 07/15/19 Status: Ordered Problem List Condition Confirmation Course Effective Dates Status Health St atus Informant Amyotrophic lateral sclerosis Confirmed Active IBS (irritable bowel syndrome) Confirmed Active Muscle cramps Confirmed Active High risk medications (not anticoagulants) long-term use Confirmed Active Acid reflux Confirmed Active Tachycardia Confirmed Active Depression Confirmed Active Diagnosis Diagnosis Type Effective Dates Health Status Clinical Service Informant Amyotrophic lateral sclerosis Discharge Diagnosis 10/25/23 Non-Specified Increased oropharyngeal secretions Discharge Diagnosis 10/25/23 Non-Specified Spasm Discharge Diagnosis 10/25/23 Non-Specified Neuromuscular respiratory weakness Discharge Diagnosis 10/25/23 Non-Specified Procedures Procedure Date Related Diagnosis Body Site Status Rhinoplasty 06/2016 Completed Appendectomy 12/2012 Completed Surgery 1 08/2011 Completed Procedure 2 Completed 1ulnar nerve relocation- left 2ongrown toe nail removal Social History Social History Type Response Smoking Status Never smoked cigaret nguyễn Sex Male Patient Care team information Care Team Personnel Name: MD [place], Keith Cooper Position: Referring DIRECT Member Role: Primary Care Provider Address: Address: [facility] [address] [facility] [place] [address] [place] Care Team Related Persons Name: ROLANDO PEMBERTON Address: home No Address Provided
--- OUTSIDE RECORDS SUMMARY | 2023-11-15 09:31 | External Medical Summary | Summary of Care ---
Author Name Unknown Organization [facility] Address [address] [place] [address] Phone [phone] Care Team Providers Care Shingle Trimmer Name Role Phone Jaclyn Gamboa MD Primary Care Provider [phone] Reason for Visit * Reason Onset Date Comments Medication Refill 09/05/2023 Encounter Details Date Type Department Care Team (Late st Contact Info) Description 09/05/2023 Refill Family Practice [facility] [address] [facility] [place] [address] Jaclyn Gamboa MD [address] [place] [facility] [address] Allergies Active Allergy Reactions Criticality Noted [...] (PriLOSEC)Indicat ions:Gastroesopha geal reflux disease without esophagitis 1 daily in the AM 90 Capsule 3 09/29/2022 Active Dicyclomine HCl 10 MG Oral Capsule (Bentyl) TAKE 1 CAPSULE BY MOUTH FOUR TIMES DAILY NEEDED NEEDED FOR DIARRHEA AND ABDOMINAL PAIN 120 Capsule 5 06/19/2023 Active Neomycin-Polymyxi n-HC 3.5-67077-3 Otic Solution Administer 4 Drops into ears [...] before bedtime. 90 Capsule 5 08/23/2023 Active Vitamin D (Ergocalciferol) 42151 UNIT Oral Capsule Take 1 Capsule by mouth once a week. 12 Capsule 0 09/05/2023 Active Vitamin D (Ergocalciferol) 73745 UNIT Oral Capsule Take 1 Capsule by mouth once a week. 0 Discontinue d(Refill) documented as of this encounter [...] Encounter - Jaclyn Gamboa MD - 09/05/2023 8:56 AM ESTSigned Prescriptions: Disp Refills Vitamin D (Ergocalciferol) 61177 UNIT Oral*12 Cap*0 Sig: Take 1 Capsule by mouth once a week. Authorizing Provider: JACLYN GAMBOA * Telephone Encounter - Elham Moseley LPN - 09/05/2023 8:52 AM ESTPending Prescriptions: Disp Refills Vitamin D (Ergocalciferol) 52001 UNIT Oral* Sig: Take 1 Capsule by mouth once a week. * Telephone Encounter - Marylou Guzman OSA - 09/05/2023 8:00 AM EST Did you pend patient's preferred pharmacy and medication before forwarding?no Pharmacy: [facility] [id number] [place] Pending Prescriptions: Disp Refills Vitamin D (Ergocalciferol) 43996 UNIT Ora* Sig: Take 1 Capsule by mouth once a week. Last Visit: 08/23/2023 (in office), 04/29/2020 (telemedicine) Next Visit: 06/17/2024 If no future appointments scheduled, and last appointment is greater than a year ago, please schedule patient for a follow-up appointment Last date the medication was ordered: Self reported Is this request for a controlled substance?No [...] AM EDT Office Visit Family [facility] [address] [place] [address] Jaclyn Gamboa MD [address] [place] [address] Health Maintenance Due Date Last Done Comments [...] this encounter Medical Devices Implanted Type Area Boat Mechanic Device Identifier Shelf Expiration Date Model / Serial / Lot Graft Bone Cartilage Costl 6cm - [id number] Implanted:Qty: 1 on 06/22/2016 by Any Tovar MD at [place] [facility] [place]A: Nose [employer] 04/16/2021 [id number] / / documented as of this encounter Advance Directives Latest Code Status on File Code Status Date Activated Date Inactivated Comments Full Code 07/24/2015 7:58 AM 07/24/2015 3:54 PM Thi s order reflects the patients wishes and were consensually agreed upon. Care Teams Shingle Trimmer Relationship Specialty Start Date End Date Jaclyn Gamboa MD [address] [place] [address] PCP - General Family Medicine 03/23/21 documented as of this encounter
--- OUTSIDE RECORDS SUMMARY | 2023-11-15 09:32 | External Medical Summary | Summary of Care ---
Author Name Unknown Organization [facility] Address [address] [place] [address] Phone [phone] Care Team Providers Care Retail Office Manager Name Role Phone Keith Cross MD Primary Care Provider [phone] [phone] Reason for Visit * Reason Onset Date Comments Hospital Follow-Up 08/18/2023 MARI Encounter Details Date Type Department Care Team ([facility] st Contact Info) Description 08/18/[address] [address] Vandana England, FARHAT Hospital Follow-Up (MARI) Allergies Active Allergy Reactions Criticality Noted Date Comments Tramadol Hcl 12/08/2011 Gi upset documented as of this encounter (statuses as of 08/18/2023) Medications Medication Sig Dispensed Refills Start Date [...] 120 Capsule 5 06/19/2023 Active Neomycin-Polymyxin -HC 3.5-25131-2 Otic Solution Administer 4 Drops into ears [...] as of this encounter (statuses as of 08/18/2023) Active Problems Problem Noted Date Diagnosed Date Depression with anxiety 06/16/2023 Personal history of DVT (deep vein thrombosis) 0 04/09/2021 History of pulmonary embolism 04/09/2021 ALS (amyotrophic lateral sclerosis) 05/02/2016 Orthostatic hypotension 12/18/2015 GERD (gastroesophageal reflux disease) 6 Irritable bowel syndrome with diarrhea 1 Attention deficit disorder without hyperactivity documented as of this encounter (statuses as of 08/18/2023) Resolved Problems Problem Noted Date Diagnosed Date [...] as of this encounter (statuses as of 08/18/2023) Immunizations Name Administration Dates Next Due COVID-19 [...] Admission Phone visit for follow up: MARI #1 Admitted to: [facility], Date: 08/15/2023 Discharged to: Home, Date: 08/17/2023 Diagnosis driving hospitalization: Sepsis, UTI in the setting of ALS and recent Covid Infection New medications: Gabapentin 300 mg, Advanced Probiotic, Vitmain D2, Bactrim DS Discontinued medication: Gabapentin 100 mg Attempted MARI - no answer. Message left to return call [phone] or . Vandana England RN documented in this encounter Plan of Treatment Upcoming Encounters Date Type Department Care Team (Late st Contact Info) Description 08/23/2023 11:00 AM EST Office Visit [facility] [address] [place] [address] Keith Cross MD [address] [place] [address] 06/17/2024 9:00 AM EDT Office Visit [facility] [address] [place] [address] Keith Cross MD [address] [place] [address] Health Maintenance Due Date Last Done Comments Hepatitis B (1 of 3 - 3-dose series) 1975 Lipid Panel 11/07/2017 11/07/2012 Cologuard 2020 Colonoscopy 2020 Colorectal Cancer Screening 2020 Fecal Occult Blood Test 2020 Sigmoidoscopy 2020 Depression Screening 02/25/2021 02/26/2020 COVID-19 Vaccine (3 - 2022-24 season) 2023 02/01/2021, 12/28/2020 DTaP,Tdap,and Td Vaccines [...] this encounter Medical Devices Implanted Type Area Manager Industrial Device Identifier Shelf Expiration Date Model / Serial / Lot Graft Bone Cartilage Costl 6cm - [id number] Implanted:Qty: 1 on 06/22/2016 by Any Tovar MD at [place] [facility] [place] N/A: Nose [employer] 04/16/2021 [id number] / / documented as of this encounter Advance Directives Latest Code Status on File Code Status Date Activated Date Inactivated Comments Full Code 07/24/2015 7:58 AM 07/24/2015 3:54 PM Thi s order reflects the patients wishes and were consensually agreed upon. Care Teams Retail Office Manager Relationship Specialty Start Date End Date Keith Cross MD [address] [facility] [place] [address] PCP - General Family Medicine 03/23/21 documented as of this encounter
--- NOTE | 2023-11-15 09:41 | Surgery Consultation ---
Date of Consultation November 15, 2023 Assessment & Plan (1) Acute hypoxemic respiratory failure: (2) SBO (small bowel obstruction): Plan 48 year-old male with history of ALS, pulmonary embolism, GERD, presented to emergency room with shortness of breath and abdominal pain with associated nausea and no bowel movement for [address] scan with SBO with no clear transition point. He had very distended stomach and NGT placed in which he had 750 cc removed. Abdomen, soft, nondistended, nontender and now passing flatus. Plan: No emergent surgical intervention required at this time. Continue NGT for decompression now given distended stomach Continue IV fluids, pain management and antiemetics as needed Continue medical management will follow along Dr. Cox has seen and examined patient, agrees with above. Supervising Physician Co-Signing Physician Notes I have seen and examined the patient personally and agree with the above assessment and plan. Currently on exam his abdomen is soft, nondistended and nontender. He has been passing flatus. Given his distended stomach, we will continue the NG tube for now. Will advance his diet slowly given his bowel function status. We will continue to follow along. History of Present Illness Reason for Consultation: SBO Requesting Physician: Catie Antonio MD Attending Physician: Rey Antonio MD History of Present Illness 48-year-old male with past medical history significant for orthostatic hypotension, irritable bowel syndrome with diarrhea, GERD, ALS, attention deficit disorder without hyperactivity, history of DVT and history of PE, depression with anxiety was brought in because of shortness of breath and abdominal pain. States he was having some abdominal pain with distention for 3 days. Unable to have bowel movement for 5 days per . Had nausea but no vomiting. Was also having shortness of breath. Currently states he is feeling better but has headache. No abdominal pain. Abdomen does not feel distended any longer and is passing gas. Allergies Allergy/AdvReac Type Severity Reaction Status Date / Time lactose AdvReac Unknown Diarrhea Verified 11/14/23 20:29 tramadol AdvReac Unknown GI Verified 11/14/23 20:29 discomfort Home Medications Medication Instructions Recorded Confirmed Type dextroamphetamine-amphetamine 20 20 mg PO TID 01/31/19 11/14/23 History mg tablet escitalopram oxalate 20 mg tablet 20 mg PO QAM 01/31/19 11/14/23 History omeprazole 20 mg capsule,delayed 20 mg PO QAM 01/31/19 11/14/23 History release apixaban 5 mg tablet (Eliquis) 5 mg PO BID 11/19/20 11/14/23 History hyoscyamine sulfate 0.375 mg 0.375 mg PO BID 07/25/23 11/14/23 History tablet,extended release,12 hr ipratropium 0.5 mg-albuterol 3 mg 3 ml inhalation Q6H PRN WHEEZING 07/25/23 11/14/23 History (2.5 mg base)/3 mL nebulization OR SOB soln ondansetron 4 mg disintegrating 4 mg PO Q6H PRN nausea and 07/25/23 11/14/23 Rx tablet vomiting #14 tabs dicyclomine 10 mg capsule 10 mg PO TID 08/15/23 11/14/23 History ergocalciferol (vitamin D2) 1,250 50,000 unit PO Q7D #7 caps 08/17/23 11/14/23 Rx mcg (50,000 unit) capsule clonazepam 0.5 mg tablet 0.25 mg PO Q OTHER DAY 11/14/23 11/14/23 History gabapentin 300 mg capsule 300 mg PO TID 11/14/23 11/14/23 History glycopyrrolate 1 mg tablet 1 mg PO HS 11/14/23 11/14/23 History mirtazapine 15 mg tablet 15 mg PO HS 11/14/23 11/14/23 History Patient History Medical History COVID-19 History of pulmonary embolism ADD (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 GERD (gastroesophageal reflux disease) ALS (amyotrophic lateral sclerosis) Surgical History History of vasectomy H/O rhinoplasty S/P left knee arthroscopy Family History Father Pulmonary embolism Mother Hypertension Social History Smoking Status: Never smoker Second Hand Exposure: No; Do You Dip or Chew Tobacco: No; Hx Alcohol Use: No Hx Substance Use: No Preferred Language: Kyrgyz Communication Ability: Effective Smash Fixer Required: No Beliefs That Will Affect Care: None marital status: Current Living Situation: Spouse current occupational status: employed Feels Safe at Home: Yes Assistive Devices: Hospital Bed, Mechanical Lift, Nebulizer, Wheelchair and Other Review of Systems Review of Systems: All systems reviewed & are unremarkable except as noted in HPI & below Physical Exam Constitutional: WD/WN, vitals as above cooperative; no acute distress and not ill appearing Respiratory: normal respiratory effort; no respiratory distress, no labored breathing and no retractions Gastrointestinal (Abdomen): Inspection/Auscultation: abdomen normal to inspection; abdomen not distended Percussion/Palpation: abdomen soft; abdomen nontender, no guarding, abdomen not rigid and abdomen not firm NGT with dark bilious/brown output Skin: no rashes, warm and dry Psychiatric: A+Ox3, euthymic affect Results & Data Vital Signs (Past 12 Hours) Vital Signs Pulse Pulse Pulse Resp BP Pulse Ox Pulse Ox 11/15/23 08:36 96 H 11/15/23 07:55 102 H 19 131/85 95 11/15/23 06:34 91 H 20 131/89 96 11/15/23 04:00 103 H 17 123/87 98 11/15/23 03:10 11/15/23 03:10 98 11/15/23 03:00 98 11/15/23 03:00 102 H 20 126/88 98 11/15/23 02:42 105 H 11/15/23 00:00 116 H 20 118/85 98 11/14/23 23:49 96 11/14/23 22:55 110 H 11/14/23 22:10 115 H 20 132/90 97 11/14/23 22:01 110 H 20 97 O2 Del Method O2 Del Method O2 Flow Rate FiO2 11/15/23 08:36 11/15/23 07:55 Room Air 11/15/23 06:34 Room Air 11/15/23 04:00 Oxymask 2 11/15/23 03:10 Oxymask 2 11/15/23 03:10 Oxymask 2 11/15/23 03:00 Oxymask 11/15/23 03:00 Oxymask 2 11/15/23 02:42 11/15/23 00:00 Oxymask 5 11/14/23 23:49 Oxymask, High Flow Nasal Cannula 40 11/14/23 22:55 11/14/23 22:10 High Flow Nasal Cannula 40 40 11/14/23 22:01 High Flow Nasal Cannula 40 40 Laboratory Results 11/15/23 11/15/23 11/15/23 Range/Units 14:51 13:03 11:10 WBC (4.8-10.8) K/ul RBC (4.70-6.10) M/uL Hgb (14.0-18.0) g/dl Hct (42.0-52.0) % MCV (80.0-100.0) fL MCH (25.0-34.0) pg MCHC (32.0-36.0) g/dL RDW Std Deviation (36.4-46.3) fL RDW Coeff of Hussain (11.5-14.5) % Plt Count (130-400) K/uL MPV (9.4-12.4) fL Immature Gran % (Auto) % Neut % (Auto) % Lymph % (Auto) % [place] % (Auto) % Eos % (Auto) % Baso % (Auto) % Neut # (Auto) (1.40-6.50) K/uL Lymph # (Auto) (1.20-3.40) K/uL [place] # (Auto) (0.11-0.59) K/uL Eos # (Auto) (0.00-0.50) K/uL Baso # (Auto) (0.00-0.20) K/uL Immature Gran # (Auto) (0.01-0.20) K/uL PT (9.0-12.0) Seconds INR (0.9-1.1) APTT (21-31) Seconds PTT Ratio Heparin Anti-Xa, Unfract Pending 0.72 H* 1.33 H* (0.3-0.7) IU/ml Sodium (136-145) mmol/L Potassium (3.5-5.1) mmol/L Chloride (98-107) mmol/L Carbon Dioxide (21-32) mmol/L Anion Gap (3-11) BUN (6-23) mg/dl Creatinine (0.6-1.4) mg/dl Est Cr Clr Drug Dosing ml/min Est GFR ( Amer) ml/min Est GFR (Non-Af Amer) ml/min BUN/Creatinine Ratio (10-20) Glucose (70-99(Fasting)) mg/dl Lactate (0.4-2.0) mmol/L Calcium (8.6-10.3) mg/dl Magnesium (1.7-2.4) mg/dl Total Bilirubin (0.2-1.0) mg/dl AST (13-39) U/L ALT (7-52) U/L Alkaline Phosphatase (34-104) U/L Troponin I High Sens (0-20) pg/ml Total Protein (6.0-8.3) gm/dl Albumin (3.4-5.0) gm/dl Globulin (2.5-4.0) gm/dl Albumin/Globulin Ratio (0.9-2) Procalcitonin (0-0.5) ng/ml Urine Color Urine Appearance (Clear) Urine pH (4.5-7.5) Ur Specific [place] (1.000-1.030) Urine Protein (Negative) Urine Glucose (UA) (Negative) Urine Ketones (Negative) Urine Blood (Negative) Urine Nitrite (Negative) Urine Bilirubin (Negative) Urine Urobilinogen (Negative) Ur Leukocyte Esterase (Negative) Adenovirus (PCR) (NotDetected) B. pertussis DNA (PCR) (NotDetected) B.parapertussis DNA PCR (NotDetected) C. pneumoniae DNA (PCR) (NotDetected) Coronavirus OC43 (PCR) (NotDetected) Coronavirus HKU1 (PCR) (NotDetected) Coronavirus 229E (PCR) (NotDetected) SARS-CoV-2 (PCR) (NotDetected) Coronavirus NL63 (PCR) (NotDetected) Human Metapneumovir PCR (NotDetected) Influenza Type A (PCR) (NotDetected) Influenza Type B (PCR) (NotDetected) M. pneumoniae (PCR) (NotDetected) Parainfluenza 1 (PCR) (NotDetected) Parainfluenza 2 (PCR) (NotDetected) Parainfluenza 3 (PCR) (NotDetected) Parainfluenza 4 (PCR) (NotDetected) RSV (PCR) (NotDetected) Entero/Rhino (PCR) (NotDetected) 11/15/23 11/15/23 11/14/23 Range/Units 08:36 03:39 22:10 WBC 7.06 (4.8-10.8) K/ul RBC 4.45 L (4.70-6.10) M/uL Hgb 12.7 L (14.0-18.0) g/dl Hct 41.0 L (42.0-52.0) % MCV 92.1 (80.0-100.0) fL MCH 28.5 (25.0-34.0) pg MCHC 31.0 L (32.0-36.0) g/dL RDW Std Deviation 41.6 (36.4-46.3) fL RDW Coeff of Hussain 12.4 (11.5-14.5) % Plt Count 219 (130-400) K/uL MPV 11.8 (9.4-12.4) fL Immature Gran % (Auto) 0.3 % Neut % (Auto) 84.2 % Lymph % (Auto) 9.9 % [place] % (Auto) 5.2 % Eos % (Auto) 0.0 % Baso % (Auto) 0.4 % Neut # (Auto) 5.94 (1.40-6.50) K/uL Lymph # (Auto) 0.70 L (1.20-3.40) K/uL [place] # (Auto) 0.37 (0.11-0.59) K/uL Eos # (Auto) 0.00 (0.00-0.50) K/uL Baso # (Auto) 0.03 (0.00-0.20) K/uL Immature Gran # (Auto) 0.02 (0.01-0.20) K/uL PT (9.0-12.0) Seconds INR (0.9-1.1) APTT (21-31) Seconds PTT Ratio Heparin Anti-Xa, Unfract > 1.50 H* (0.3-0.7) IU/ml Sodium 139 (136-145) mmol/L Potassium 3.6 (3.5-5.1) mmol/L Chloride 102 (98-107) mmol/L Carbon Dioxide 31 (21-32) mmol/L Anion Gap 6 (3-11) BUN 9 (6-23) mg/dl Creatinine < 0.20 L (0.6-1.4) mg/dl Est Cr Clr Drug Dosing 435.8 ml/min Est GFR ( Amer) > 150.0 ml/min Est GFR (Non-Af Amer) > 150.0 ml/min BUN/Creatinine Ratio TNP (10-20) Glucose 127 H (70-99(Fasting)) mg/dl Lactate (0.4-2.0) mmol/L Calcium 8.6 (8.6-10.3) mg/dl Magnesium 1.9 (1.7-2.4) mg/dl Total Bilirubin (0.2-1.0) mg/dl AST (13-39) U/L ALT (7-52) U/L Alkaline Phosphatase (34-104) U/L Troponin I High Sens (0-20) pg/ml Total Protein (6.0-8.3) gm/dl Albumin (3.4-5.0) gm/dl Globulin (2.5-4.0) gm/dl Albumin/Globulin Ratio (0.9-2) Procalcitonin (0-0.5) ng/ml Urine Color Yellow Urine Appearance Clear (Clear) Urine pH 6.5 (4.5-7.5) Ur Specific [place] 1.025 (1.000-1.030) Urine Protein Negative (Negative) Urine Glucose (UA) Negative (Negative) Urine Ketones 1+ H (Negative) Urine Blood Negative (Negative) Urine Nitrite Negative (Negative) Urine Bilirubin Negative (Negative) Urine Urobilinogen Negative (Negative) Ur Leukocyte Esterase Negative (Negative) Adenovirus (PCR) (NotDetected) B. pertussis DNA (PCR) (NotDetected) B.parapertussis DNA PCR (NotDetected) C. pneumoniae DNA (PCR) (NotDetected) Coronavirus OC43 (PCR) (NotDetected) Coronavirus HKU1 (PCR) (NotDetected) Coronavirus 229E (PCR) (NotDetected) SARS-CoV-2 (PCR) (NotDetected) Coronavirus NL63 (PCR) (NotDetected) Human Metapneumovir PCR (NotDetected) Influenza Type A (PCR) (NotDetected) Influenza Type B (PCR) (NotDetected) M. pneumoniae (PCR) (NotDetected) Parainfluenza 1 (PCR) (NotDetected) Parainfluenza 2 (PCR) (NotDetected) Parainfluenza 3 (PCR) (NotDetected) Parainfluenza 4 (PCR) (NotDetected) RSV (PCR) (NotDetected) Entero/Rhino (PCR) (NotDetected) 11/14/23 11/14/23 11/14/23 Range/Units 21:13 20:28 19:30 WBC 11.94 H (4.8-10.8) K/ul RBC 5.05 (4.70-6.10) M/uL Hgb 14.6 (14.0-18.0) g/dl Hct 45.6 (42.0-52.0) % MCV 90.3 (80.0-100.0) fL MCH 28.9 (25.0-34.0) pg MCHC 32.0 (32.0-36.0) g/dL RDW Std Deviation 40.5 (36.4-46.3) fL RDW Coeff of Hussain 12.4 (11.5-14.5) % Plt Count 241 (130-400) K/uL MPV 11.8 (9.4-12.4) fL Immature Gran % (Auto) 0.3 % Neut % (Auto) 87.9 % Lymph % (Auto) 7.2 % [place] % (Auto) 3.4 % Eos % (Auto) 0.6 % Baso % (Auto) 0.6 % Neut # (Auto) 10.51 H (1.40-6.50) K/uL Lymph # (Auto) 0.86 L (1.20-3.40) K/uL [place] # (Auto) 0.40 (0.11-0.59) K/uL Eos # (Auto) 0.07 (0.00-0.50) K/uL Baso # (Auto) 0.07 (0.00-0.20) K/uL Immature Gran # (Auto) 0.03 (0.01-0.20) K/uL PT 11.4 (9.0-12.0) Seconds INR 1.0 (0.9-1.1) APTT 28 (21-31) Seconds PTT Ratio 1.0 Heparin Anti-Xa, Unfract (0.3-0.7) IU/ml Sodium 139 (136-145) mmol/L Potassium 4.1 (3.5-5.1) mmol/L Chloride 100 (98-107) mmol/L Carbon Dioxide 30 (21-32) mmol/L Anion Gap 9 (3-11) BUN 8 (6-23) mg/dl Creatinine 0.22 L (0.6-1.4) mg/dl Est Cr Clr Drug Dosing 396.1 ml/min Est GFR ( Amer) > 150.0 ml/min Est GFR (Non-Af Amer) > 150.0 ml/min BUN/Creatinine Ratio 36.4 H (10-20) Glucose 103 H (70-99(Fasting)) mg/dl Lactate 1.1 (0.4-2.0) mmol/L Calcium 9.6 (8.6-10.3) mg/dl Magnesium (1.7-2.4) mg/dl Total Bilirubin 0.5 (0.2-1.0) mg/dl AST 25 (13-39) U/L ALT 17 (7-52) U/L Alkaline Phosphatase 72 (34-104) U/L Troponin I High Sens 4.9 (0-20) pg/ml Total Protein 7.6 (6.0-8.3) gm/dl Albumin 4.3 (3.4-5.0) gm/dl Globulin 3.3 (2.5-4.0) gm/dl Albumin/Globulin Ratio 1.3 (0.9-2) Procalcitonin 0.05 (0-0.5) ng/ml Urine Color Urine Appearance (Clear) Urine pH (4.5-7.5) Ur Specific [place] (1.000-1.030) Urine Protein (Negative) Urine Glucose (UA) (Negative) Urine Ketones (Negative) Urine Blood (Negative) Urine Nitrite (Negative) Urine Bilirubin (Negative) Urine Urobilinogen (Negative) Ur Leukocyte Esterase (Negative) Adenovirus (PCR) Not Detected (NotDetected) B. pertussis DNA (PCR) Not Detected (NotDetected) B.parapertussis DNA PCR Not Detected (NotDetected) C. pneumoniae DNA (PCR) Not Detected (NotDetected) Coronavirus OC43 (PCR) Not Detected (NotDetected) Coronavirus HKU1 (PCR) Not Detected (NotDetected) Coronavirus 229E (PCR) Not Detected (NotDetected) SARS-CoV-2 (PCR) Not Detected (NotDetected) Coronavirus NL63 (PCR) Not Detected (NotDetected) Human Metapneumovir PCR Not Detected (NotDetected) Influenza Type A (PCR) Not Detected (NotDetected) Influenza Type B (PCR) Not Detected (NotDetected) M. pneumoniae (PCR) Not Detected (NotDetected) Parainfluenza 1 (PCR) Not Detected (NotDetected) Parainfluenza 2 (PCR) Not Detected (NotDetected) Parainfluenza 3 (PCR) Not Detected (NotDetected) Parainfluenza 4 (PCR) Not Detected (NotDetected) RSV (PCR) Not Detected (NotDetected) Entero/Rhino (PCR) Not Detected (NotDetected) Diagnostic Findings Exam(s): CT ABDOMEN + PELVIS Without Contrast EXAM: CT Abdomen and Pelvis Without Intravenous Contrast CLINICAL HISTORY: Reason for exam: abdominal pain. TECHNIQUE: Axial computed tomography images of the abdomen and pelvis without intravenous contrast. CTDI is 15.2 mGy and DLP is 870.66 mGy-cm. Automated exposure control was utilized for the study. A dose lowering technique was utilized adhering to the principles of ALARA. COMPARISON: No relevant prior studies available. FINDINGS: Lung bases: Bibasilar atelectasis, left greater than right. ABDOMEN: Liver: Small hepatic cysts. Gallbladder and bile ducts: Unremarkable. No calcified stones. No ductal dilation. Pancreas: Unremarkable. No ductal dilation. Spleen: Unremarkable. No splenomegaly. Adrenals: Unremarkable. No mass. Kidneys and ureters: Unremarkable. No obstructing stones. No hydronephrosis. Stomach and bowel: The stomach is markedly distended fluid and gas. Dilated loops of small bowel measuring up to 3.4 cm, characteristic of moderate small bowel obstruction. No clear transition point. No mucosal thickening. PELVIS: Appendix: Postoperative changes near the cecum may be secondary to prior appendectomy. The appendix is not visualized.. Bladder: Distended. No stones. Reproductive: Postoperative changes in the bilateral scrotal regions. ABDOMEN and PELVIS: Intraperitoneal space: Unremarkable. No free air. No significant fluid collection. Bones/joints: No acute fracture. No dislocation. Soft tissues: Unremarkable. Vasculature: Unremarkable. No abdominal aortic aneurysm. Lymph nodes: Unremarkable. No enlarged lymph nodes. IMPRESSION: The stomach is markedly distended fluid and gas. Dilated loops of small bowel measuring up to 3.4 cm, characteristic of moderate small bowel obstruction. No clear transition point.
[2023-11-15 10:05] LABS: ANTI-Xa, UFH(UnfractionatedHep > 1.50 IU/ml (0.3-0.7)
[2023-11-15] MEDS: PANTOprazole 40 MG in SYRINGE 0 ML IV SCH (11:03)
[2023-11-15 11:58] LABS: ANTI-Xa, UFH(UnfractionatedHep 1.33 IU/ml (0.3-0.7)
--- NOTE | 2023-11-15 12:36 | Pulmonary Consultation ---
Date of Consultation November 15, 2023 Assessment & Plan (1) Acute hypoxemic respiratory failure: (2) Pneumonia: Plan Impression: 48-year-old male with ALS admitted with partial small bowel obstruction. CT scan of the chest shows mucoid impaction of the left lower lobe with some associated peripheral tree-in-bud opacities. This is likely secondary to the patient's abdominal process disease unable to perform usual pulmonary toilet including coughing and clearing secretions. Has been initiated on broad- spectrum antibiotics. General surgery consultation is pending. Recommendations: 1. Mucoid impaction left lower lobe: This is a direct sequelae of the patient's abdominal distention and inability to cough and take deep breaths. No indication for bronchoscopy currently. Would recommend addressing his abdominal issues at which point in time pulmonary toilet including incentive spirometry, flutter valve, and consideration for hypertonic saline might be appropriate. Trying to perform these interventions currently would likely be ineffectual due to the patient's current abdominal issues. 2. Hypoxemia: Secondary to #1 3. Cannot rule out a potential infectious component in the left lower lobe. Seems reasonable to treat the patient with antibiotics. Would de-escalate down to Unasyn as the patient does not require antipseudomonal coverage. Can transition to Augmentin once he is able to take orals. Recommend a 7-day course of antimicrobial therapy and follow-up CT imaging in 8 weeks with his outpatient pulmonary providers in [place]. Patient appears to be doing well clinically. Pulmonary will sign off at this point in time. Feel free to contact us with questions or concerns History of Present Illness Attending Physician: Rey Antonio MD History of Present Illness Asked by hospitalist to assist in evaluation management this patient with an abnormal CT scan. History is obtained from discussion with the patient as well as with his at bedside. Patient is a 48-year-old male with a history of ALS. He is followed at the multidisciplinary clinic at [facility] which includes a facility service manager. He does have a BiPAP at home which he uses on a fairly regular basis although has not been able to use it recently due to significant nasal and sinus congestion. He is using saline sinus irrigation which is beneficial. Patient was brought to the emergency room early this morning with shortness of breath and abdominal pain. He has not had a bowel movement in several days. He was found to be mildly hypoxemic. He had a CT of the chest to evaluate for thromboembolic disease which showed no evidence of PE but did show mucoid impaction in the lower lobes. He has been initiated on Zosyn and doxycycline. An NG tube was placed. Surgical consultation is pending for a moderate small bowel obstruction without obvious transition point on CT scan. Allergies Allergy/AdvReac Type Severity Reaction Status Date / Time lactose AdvReac Unknown Diarrhea Verified 11/14/23 20:29 tramadol AdvReac Unknown GI Verified 11/14/23 20:29 discomfort Home Medications Medication Instructions Recorded Confirmed Type dextroamphetamine-amphetamine 20 20 mg PO TID 01/31/19 11/14/23 History mg tablet escitalopram oxalate 20 mg tablet 20 mg PO QAM 01/31/19 11/14/23 History omeprazole 20 mg capsule,delayed 20 mg PO QAM 01/31/19 11/14/23 History release apixaban 5 mg tablet (Eliquis) 5 mg PO BID 11/19/20 11/14/23 History hyoscyamine sulfate 0.375 mg 0.375 mg PO BID 07/25/23 11/14/23 History tablet,extended release,12 hr ipratropium 0.5 mg-albuterol 3 mg 3 ml inhalation Q6H PRN WHEEZING 07/25/23 11/14/23 History (2.5 mg base)/3 mL nebulization OR SOB soln ondansetron 4 mg disintegrating 4 mg PO Q6H PRN nausea and 07/25/23 11/14/23 Rx tablet vomiting #14 tabs dicyclomine 10 mg capsule 10 mg PO TID 08/15/23 11/14/23 History ergocalciferol (vitamin D2) 1,250 50,000 unit PO Q7D #7 caps 08/17/23 11/14/23 Rx mcg (50,000 unit) capsule clonazepam 0.5 mg tablet 0.25 mg PO Q OTHER DAY 11/14/23 11/14/23 History gabapentin 300 mg capsule 300 mg PO TID 11/14/23 11/14/23 History glycopyrrolate 1 mg tablet 1 mg PO HS 11/14/23 11/14/23 History mirtazapine 15 mg tablet 15 mg PO HS 11/14/23 11/14/23 History Patient History Medical History COVID-19 History of pulmonary embolism ADD (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 GERD (gastroesophageal reflux disease) ALS (amyotrophic lateral sclerosis) Surgical History History of vasectomy H/O rhinoplasty S/P left knee arthroscopy Family History Father Pulmonary embolism Mother Hypertension Social History Smoking Status: Never smoker Second Hand Exposure: No; Do You Dip or Chew Tobacco: No; Hx Alcohol Use: No Hx Substance Use: No Preferred Language: Paraguayan Communication Ability: 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 No additions or deletions Physical Exam Constitutional: + ill appearing, + thin and + in distres s Neck: trachea midline, no thyromegaly Respiratory: no respiratory distress, no labored breathing, no cough and not tachypneic Auscultation: + rhonchi; no wheezes Cardiovascular: Rate/Rhythm: regular rate and regular rhythm Heart Sounds: no murmur Gastrointestinal (Abdomen): Inspection/Auscultation: + abdomen distended; + abnormal bowel sounds Neurologic: moves all extremities (With decreased movements more on the right than the left side) Speech / Cognition: normal speech Motor/Sensory: no tremor Lymphatic: no cervical or axillary lymphadenopathy Results & Data Results & Data Vital Signs (Past 12 Hours) Vital Signs Pulse Pulse Resp BP Pulse Ox Pulse Ox O2 Del Method 11/15/23 11:02 99 H 21 116/85 100 Room Air 11/15/23 08:36 96 H 11/15/23 07:55 102 H 19 131/85 95 Room Air 11/15/23 06:34 91 H 20 131/89 96 Room Air 11/15/23 04:00 103 H 17 123/87 98 Oxymask 11/15/23 03:10 Oxymask 11/15/23 03:10 98 Oxymask 11/15/23 03:00 98 11/15/23 03:00 102 H 20 126/88 98 Oxymask 11/15/23 02:42 105 H O2 Del Method O2 Flow Rate 11/15/23 11:02 11/15/23 08:36 11/15/23 07:55 11/15/23 06:34 11/15/23 04:00 2 11/15/23 03:10 2 11/15/23 03:10 2 11/15/23 03:00 Oxymask 11/15/23 03:00 2 11/15/23 02:42 Critical Care Results & Data Vital Signs (Past 12 Hours) Vital Signs Pulse Pulse Resp BP Pulse Ox Pulse Ox O2 Del Method 11/15/23 11:02 99 H 21 116/85 100 Room Air 11/15/23 08:36 96 H 11/15/23 07:55 102 H 19 131/85 95 Room Air 11/15/23 06:34 91 H 20 131/89 96 Room Air 11/15/23 04:00 103 H 17 123/87 98 Oxymask 11/15/23 03:10 Oxymask 11/15/23 03:10 98 Oxymask 11/15/23 03:00 98 11/15/23 03:00 102 H 20 126/88 98 Oxymask 11/15/23 02:42 105 H O2 Del Method O2 Flow Rate 11/15/23 11:02 11/15/23 08:36 11/15/23 07:55 11/15/23 06:34 11/15/23 04:00 2 11/15/23 03:10 2 11/15/23 03:10 2 11/15/23 03:00 Oxymask 11/15/23 03:00 2 11/15/23 02:42 Lab & Micro Results (Past 24 Hours) RBC 4.45 M/uL (4.70-6.10) L 11/15/23 WBC 7.06 K/ul (4.8-10.8) 11/15/23 Hgb 12.7 g/dl (14.0-18.0) L 11/15/23 Hct 41.0 % (42.0-52.0) L 11/15/23 MCV 92.1 fL (80.0-100.0) 11/15/23 MCH 28.5 pg (25.0-34.0) 11/15/23 MCHC 31.0 g/dL (32.0-36.0) L 11/15/23 RDW Standard Deviation 41.6 fL (36.4-46.3) 11/15/23 RDW Coefficient of Variation 12.4 % (11.5-14.5) 11/15/23 Plt Count 219 K/uL (130-400) 11/15/23 MPV 11.8 fL (9.4-12.4) 11/15/23 Neutrophils (%) (Auto) 84.2 % 11/15/23 Lymphocytes (%) (Auto) 9.9 % 11/15/23 Monocytes # (Auto) 0.37 K/uL (0.11-0.59) 11/15/23 Eosinophils # (Auto) 0.00 K/uL (0.00-0.50) 11/15/23 Immature Granulocyte % (Auto) 0.3 % 11/15/23 Neutrophils # (Auto) 5.94 K/uL (1.40-6.50) 11/15/23 Lymphocytes # (Auto) 0.70 K/uL (1.20-3.40) L 11/15/23 Monocytes # (Auto) 0.37 K/uL (0.11-0.59) 11/15/23 Eosinophils # (Auto) 0.00 K/uL (0.00-0.50) 11/15/23 Basophils # (Auto) 0.03 K/uL (0.00-0.20) 11/15/23 Immature Granulocyte # (Auto) 0.02 K/uL (0.01-0.20) 4 Na 139 mmol/L (136-145) 11/15/23 K 3.6 mmol/L (3.5-5.1) 11/15/23 Cl 102 mmol/L (98-107) 11/15/23 CO2 31 mmol/L (21-32) 11/15/23 Anion Gap 6 (3-11) 11/15/23 BUN 9 mg/dl (6-23) 11/15/23 Creatinine < 0.20 mg/dl (0.6-1.4) L 11/15/23 Estimated GFR ( Amer) > 150.0 ml/min 11/15/23 Estimated GFR (Non-Af Amer) > 150.0 ml/min 11/15/23 BUN/Creatinine Ratio TNP 11/15/23 Glu 127 mg/dl (70-99(Fasting)) H 11/15/23 Ca 8.6 mg/dl (8.6-10.3) 11/15/23 Total Bilirubin 0.5 mg/dl (0.2-1.0) 11/14/23 AST 25 U/L (13-39) 11/14/23 ALT 17 U/L (7-52) 11/14/23 Alkaline Phosphatase 72 U/L (34-104) 11/14/23 TP 7.6 gm/dl (6.0-8.3) 11/14/23 Albumin 4.3 gm/dl (3.4-5.0) 11/14/23 Globulin 3.3 gm/dl (2.5-4.0) 11/14/23 Albumin/Globulin Ratio 1.3 (0.9-2) 11/14/23 Mg 1.9 mg/dl (1.7-2.4) 11/15/23 03:39 Calcium Level 8.6 mg/dl (8.6-10.3) 11/15/23 03:39 Prothromb Time International Ratio 1.0 (0.9-1.1) 11/14/23 19:3 0 Diagnostic Findings (Past 24 Hours) Chest X-Ray 11/14/23 18:51 SINGLE VIEW CHEST CLINICAL HISTORY: Atypical chest pain. FINDINGS: An AP, portable, upright chest radiograph is compared to study dated 08/16/2023. Correlation is made with chest CT dated 02/28. The cardiomediastinal silhouette is unremarkable. Chronic interstitial thickening is similar to previous. There is bibasilar scarring/atelectasis. No airspace consolidation or large pleural effusion is identified. No pneumothorax is seen. The skeletal structures are osteopenic. The bony thorax is grossly intact. IMPRESSION: No acute cardiopulmonary abnormality. ACT 112: Negative or not required by law. Electronically signed by: Jose Ellington M.D. 11/14/2023 7:40 PM Abdomen/Pelvis CT 11/14/23 20:21 Exam(s): CT ABDOMEN + PELVIS Without Contrast EXAM: CT Abdomen and Pelvis Without Intravenous Contrast CLINICAL HISTORY: Reason for exam: abdominal pain. TECHNIQUE: Axial computed tomography images of the abdomen and pelvis without intravenous contrast. CTDI is 15.2 mGy and DLP is 870.66 mGy-cm. Automated exposure control was utilized for the study. A dose lowering technique was utilized adhering to the principles of ALARA. COMPARISON: No relevant prior studies available. FINDINGS: Lung bases: Bibasilar atelectasis, left greater than right. ABDOMEN: Liver: Small hepatic cysts. Gallbladder and bile ducts: Unremarkable. No calcified stones. No ductal dilation. Pancreas: Unremarkable. No ductal dilation. Spleen: Unremarkable. No splenomegaly. Adrenals: Unremarkable. No mass. Kidneys and ureters: Unremarkable. No obstructing stones. No hydronephrosis. Stomach and bowel: The stomach is markedly distended fluid and gas. Dilated loops of small bowel measuring up to 3.4 cm, characteristic of moderate small bowel obstruction. No clear transition point. No mucosal thickening. PELVIS: Appendix: Postoperative changes near the cecum may be secondary to prior appendectomy. The appendix is not visualized.. Bladder: Distended. No stones. Reproductive: Postoperative changes in the bilateral scrotal regions. ABDOMEN and PELVIS: Intraperitoneal space: Unremarkable. No free air. No significant fluid collection. Bones/joints: No acute fracture. No dislocation. Soft tissues: Unremarkable. Vasculature: Unremarkable. No abdominal aortic aneurysm. Lymph nodes: Unremarkable. No enlarged lymph nodes. IMPRESSION: The stomach is markedly distended fluid and gas. Dilated loops of small bowel measuring up to 3.4 cm, characteristic of moderate small bowel obstruction. No clear transition point. Electronically signed by: Minoo Mac MD 11/14/23 21:08 PM Chest CTA 11/15/23 01:20 Exam(s): CTA CHEST IV Amt: 117 ML OPTIRAY 320 EXAM: CT Angiography Chest With Intravenous Contrast CLINICAL HISTORY: Reason for exam: PE. TECHNIQUE: Axial computed tomographic angiography images of the chest with intravenous contrast. CTDI is 13.46 mGy and DLP is 421.08 mGy-cm. Automated exposure control was utilized for the study. A dose lowering technique was utilized adhering to the principles of ALARA. MIP reconstructed images were created and reviewed. COMPARISON: 02/14/2020 FINDINGS: Pulmonary arteries: Unremarkable. No CT evidence of pulmonary embolism. Aorta: No acute findings. No thoracic aortic aneurysm. Lungs: Complete opacification of the left lower lobe bronchi and the medial posterior right lower lobe bronchi. Centrilobular opacities throughout the left lower lobe likely representing endobronchial spread of infection. Pleural space: Unremarkable. No significant effusion. No pneumothorax. Heart: Unremarkable. No cardiomegaly. No significant pericardial effusion. No evidence of RV dysfunction. Bones/joints: No acute fracture. No dislocation. Soft tissues: Unremarkable. Lymph nodes: Unremarkable. No enlarged lymph nodes. Liver: 1.2 cm simple cyst in the posterior right lobe of the liver. Stomach and bowel: Severe gastric distention. IMPRESSION: 1. No CT evidence of pulmonary embolism. 2. Complete opacification of the left lower lobe bronchi and the medial posterior right lower lobe bronchi with centrilobular opacities throughout the left lower lobe likely representing endobronchial spread of infection. 3. Severe gastric distention. Electronically signed by: Curt Pedraza M.D. 11/15/23 03:01 AM I & O Totals 24 Hours 11/14/23 11/15/23 11/16/23 06:59 06:59 06:59 Intake Total 1100 / 1100 1363.75 / 1363.75 Output Total 1000 / 1000 Balance 100 / 100 1363.75 / 1363.75 Cumulative 11/14/23 18:29 thru 11/15/23 12:14 Intake Total 2463.75 Output Total 1000 Balance 1463.75 RT Ventilator Mngmt (Last Documented) Ventilator Ordered Settings Respiratory Rate 21 11/15/23 11:02 Fraction of Inspired Oxygen 40 11/14/23 22:10 Ventilator - PT Measurements Respiratory Rate 21 PG Care Time/CCT Total # of Minutes Spent Total Time Spent with Patient: Total time spent is greater than 50% in coordination of care (as documented) at patient's floor/unit and/or counseling patient: Coding Level of Care Code 70268 IN/OBS CONSULT LVL 4,60M Diagnoses Acute hypoxemic respiratory failure J96.01 Pneumonia J18.9
[2023-11-15 13:56] LABS: ANTI-Xa, UFH(UnfractionatedHep 0.72 IU/ml (0.3-0.7)
[2023-11-15] MEDS: AMPICILLIN/SULBACTAM SOD 3,000 MG in SODIUM CHLOR 0.9% MINI-B 100 ML IV SCH (14:24)
[2023-11-15] MEDS ORDERED: PIPERACILLIN/TAZOBACTAM 4.5 GM in DEXTROSE 5% MINI-B 100 ML IV SCH (15:00)
[2023-11-15 15:20] LABS: ANTI-Xa, UFH(UnfractionatedHep 0.53 IU/ml (0.3-0.7)
[2023-11-15] MEDS: HYDROmorphone INJ 0.5 MG/0.5 ML SYR IV PRN (16:50)
--- NOTE | 2023-11-15 18:01 | Hospitalist Progress Note ---
Date of Service November 15, 2023 Assessment & Plan (1) Acute hypoxemic respiratory failure: Plan: per admitting service notes with addendum: 48-year-old male with past medical history significant for orthostatic hypotension, irritable bowel syndrome with diarrhea, GERD, ALS, attention deficit disorder without hyperactivity, history of DVT and history of PE, depression with anxiety was brought in because of shortness of breath and abdominal pain. Patient states he did not move his bowels for last 3 to 4 days. States when he came in was having abdominal pain about 4-5/10 in severity associated with nausea currently pain is down to 3/10 in severity. No vomiting. No fevers. No chest pain . Was feeling short of breath. No runny nose or sore throat. No cough. Normal bladder movements. Patient states he is wheelchair-bound for last 3 years. He could not move his extremities. Able to eat regular food and swallows okay but has to be fed. Currently on 5 L he saturating okay. S/p NG tube in the ER.States uses BiPAP while sleeping without oxygen. Acute hypoxemic respiratory failure Bilateral Lower Lobe Pneumonia Currently requiring 5 l oxygen Chest x-ray looks fine. Patient has no vomitings. Does not seem to be a spirated History of PE but patient is on Eliquis But will do CTA chest rule out PE or any other causes Continue oxygen supplementation Probably could be distress from small bowel obstruction with underlying ALS If not improving will consult pulmonary Close monitor 11/[address] evidence of pulmonary embolism. 2. Complete opacification of the left lower lobe bronchi and the medial posterior right lower lobe bronchi with centrilobular opacities throughout the left lower lobe likely representing endobronchial spread of infection. 3. Severe gastric distention. transitioned to Unasyn IV Day 1 Adult Education Manager consulted Small bowel obstruction S/p NG tube N.p.o. IV fluids IV antiemetics as needed IV Dilaudid as needed Surgery consult in a.m. 11/14 continue conservative measures IV fluids monitor electrolytes ALS Quadriplegia in the setting of ALS Nonambulatory status Uses BiPAP while sleeping Close monitor History of DVT and PE Holding Eliquis until able to take p.o. IV heparin Attention deficit disorder without hyperactivity Depression with anxiety Restart home p.o. medications when able to take p.o. Can place him on IV Ativan as needed for now if needed. GERD IV Protonix Neuropathy On gabapentin Restart when able to take p.o. DVT prophylaxis IV heparin Disposition Telemetry Full code Admission and Anticipated Discharge Date Admission Date: November 15, 2023 Subjective ff up for SBO, pneumonia, etc seen resting in bed, not in distress uncomfortable, reporting laryngeal spasm due to NGT no chest pain, dyspnea, palpitations, dizziness no abdominal pain ,nausea no other new symptoms patient's at bedside supplementing history and ROS Review of Systems Review of Systems: all noted and negative except for above Physical Exam Physical Exam: General- oriented x 3, not in distress, speaks in sentences with no effort or accessory muscle use Eyes- anicteric Neck- no JVD Lungs- mild rhonchi at the bases Heart- normal rate, regular rhythm; no murmurs Abdomen- hypoactive bowel sounds, nondistended, soft, nontender Extremities- no pretibial edema, no calf tenderness Neuro- alert, oriented x 3; (+) weakness on all extremities Skin- warm & dry Results & Data Results & Data Vital Signs (Past 12 Hours) Vital Signs Pulse Pulse Resp BP Pulse Ox O2 Del Method O2 Flow Rate 11/15/23 17:00 84 16 122/80 100 Oxymask 2 11/15/23 15:39 99 H 11/15/23 11:02 99 H 21 116/85 100 Room Air 11/15/23 08:36 96 H 11/15/23 07:55 102 H 19 131/85 95 Room Air 11/15/23 06:34 91 H 20 131/89 96 Room Air all noted and reviewed including below
[2023-11-15] MEDS: LORazepam 0.25 MG in SYRINGE 0.125 ML IV PRN (23:01)
[2023-11-15 23:31] LABS: ANTI-Xa, UFH(UnfractionatedHep 0.44 IU/ml (0.3-0.7)
[2023-11-16] MEDS: ONDANSETRON INJ 2 MG/ML 2 ML VIAL IV PRN (02:47)
[2023-11-16] MEDS ORDERED: PROMETHAZINE HCL 6.25 MG in SODIUM CHLORIDE 0.9% 50 ML IV PRN (03:48)
[2023-11-16] MEDS ORDERED: LORazepam 0.25 MG in SYRINGE 0.125 ML IV PRN (03:49)
--- NOTE | 2023-11-16 04:01 | Communication Note ---
Date of Service: November 16, 2023 Patient with abdominal pain, nausea vomiting episode reminiscent of Lexapro withdrawal as per RN. AP Lexapro withdrawal Resume Lexapro CT abdomen pelvis if abdominal pain unimproved after resumption of medication given ongoing IV anticoagulation.
[2023-11-16] MEDS: PROMETHAZINE HCL 6.25 MG in SODIUM CHLORIDE 0.9% 50 ML IV STA (04:16)
[2023-11-16] MEDS: ESCITALOPRAM OXALATE 20 MG TAB PO SCH (04:19)
[2023-11-16 06:13] LABS: Basophils # (auto) 0.03 K/uL (0.00-0.20); Eosinophils # (auto) 0.03 K/uL (0.00-0.50); Hematocrit (blood only) 36.4 % (42.0-52.0); Hemoglobin 11.7 g/dl (14.0-18.0); Lymphocytes # (auto) 0.67 K/uL (1.20-3.40); Lymphocytes % (auto) 22.3 %; Mean Corpuscular Hemoglobin 29.1 pg (25.0-34.0); Mean Corpuscular Hgb Conc 32.1 g/dL (32.0-36.0); Mean Corpuscular Volume 90.5 fL (80.0-100.0); Mean Platelet Volume 11.5 fL (9.4-12.4); Monocytes # (auto) 0.24 K/uL (0.11-0.59); Neutrophils # (auto) 2.04 K/uL (1.40-6.50); Neutrophils % (auto) 67.7 %; Platelet Count 147 K/uL (130-400); RDW Coefficient of Variation 12.2 % (11.5-14.5); RDW Standard Deviation 40.6 fL (36.4-46.3); Red Blood Count 4.02 M/uL (4.70-6.10); White Blood Count 3.01 K/ul (4.8-10.8)
[2023-11-16] MEDS: DEXTROAMPHETAMINE/AMPHETAMINE IR 20 MG TAB PO SCH (06:14)
[2023-11-16 06:31] LABS: ANTI-Xa, UFH(UnfractionatedHep 0.32 IU/ml (0.3-0.7)
[2023-11-16 06:36] LABS: Alanine Aminotransferase 11 U/L (7-52); Albumin Globulin Ratio 1.4 (0.9-2); Albumin Level 3.3 gm/dl (3.4-5.0); Alkaline Phosphatase 49 U/L (34-104); Anion Gap 4 (3-11); Aspartate Aminotransferase 14 U/L (13-39); Bilirubin,Total 0.3 mg/dl (0.2-1.0); Blood Urea Nitrogen 2 mg/dl (6-23); Calcium 8.2 mg/dl (8.6-10.3); Carbon Dioxide 34 mmol/L (21-32); Chloride 103 mmol/L (98-107); Creatinine Clr Calc Pharmacy 446.6 ml/min; Est GFR (African American) > 150.0 ml/min; Est GFR (Non-African American) > 150.0 ml/min; Globulin 2.3 gm/dl (2.5-4.0); Glucose 106 mg/dl (70-99(Fasting)); Magnesium 1.7 mg/dl (1.7-2.4); Potassium 2.9 mmol/L (3.5-5.1); Sodium 141 mmol/L (136-145); Total Protein 5.6 gm/dl (6.0-8.3)
[2023-11-16] MEDS: PANTOprazole 40 MG TAB PO SCH (08:34)
[2023-11-16] MEDS: GABAPENTIN 300 MG CAP PO SCH (08:35)
--- NOTE | 2023-11-16 10:15 | XRay Report ---
KUB HISTORY: Acute generalized abdominal pain with small bowel obstruction ff up sbo COMPARISON: CT 11/14/2023 FINDINGS: There is decreased gaseous distention of the stomach and small bowel compared to the prior study. Mild persistent mid abdominal small bowel wall thickening with air filled loops of large bowel . Moderate fecal retention of the colon. Surgical clips of the scrotum. No renal calculi. No ureteral calculi. No pneumoperitoneum or pneumatosis. No fracture. IMPRESSION: There is decreased gaseous distention of the stomach and small bowel suggestive of resolving obstruct ion. Continued follow-up recommended. ACT 112: Negative or not required by law. The above report was generated using voice recognition software. It may contain grammatical, syntax o r spelling errors. Electronically signed by: Chang Cadena M.D. 11/16/2023 10:14 AM
--- NOTE | 2023-11-16 11:29 | Surgery Progress Note ---
Date of Service November 16, 2023 Assessment & Plan (1) Acute hypoxemic respiratory failure: (2) SBO (small bowel obstruction): Plan 48 year-old male with history of ALS, pulmonary embolism, GERD, presented to emergency room with shortness of breath and abdominal pain with associated nausea and no bowel movement for [address] scan with SBO with no clear transition point. 11/16/2023: no abdominal pain, n,v NGT removed yesterday KUB with resolving obstruction + bowel function Plan: okay for clear liquids continue medical management Discussed with DR. Cox who agrees with above. Admission and Anticipated Discharge Date Admission Date: November 15, 2023 Subjective no abdominal pain no abdominal bloating no nausea or vomiting had bowel movement yesterday and continues to pass a lot of gas Physical Exam Constitutional: cooperative and comfortable; no acute distress Respiratory: normal respiratory effort; no respiratory distress Gastrointestinal (Abdomen): Inspection/Auscultation: abdomen normal to inspection; abdomen not distended Percussion/Palpation: abdomen soft; abdomen nontender, no guarding, abdomen not rigid and abdomen not firm Skin: no rashes, warm and dry Results & Data Vital Signs (Past 12 Hours) Vital Signs Temp Pulse Pulse Resp BP Pulse Ox O2 Del Method 11/16/23 11:12 36.8 C 87 19 122/79 100 Oxymask 11/16/23 08:00 Oxymask 11/16/23 07:18 36.4 C L 80 16 110/70 99 Oxymask 11/16/23 03:50 35.8 C L 88 20 137/85 100 Oxymask 11/16/23 00:02 36.4 C 91 H 18 144/84 H 99 Oxymask 11/16/23 00:00 93 H O2 Flow Rate 11/16/23 11:12 3.0 11/16/23 08:00 3 11/16/23 07:18 4 11/16/23 03:50 11/16/23 00:02 11/16/23 00:00 Laboratory Results 11/16/23 11/15/23 11/15/23 Range/Units 05:36 22:49 14:51 WBC 3.01 L (4.8-10.8) K/ul RBC 4.02 L (4.70-6.10) M/uL Hgb 11.7 L (14.0-18.0) g/dl Hct 36.4 L (42.0-52.0) % MCV 90.5 (80.0-100.0) fL MCH 29.1 (25.0-34.0) pg MCHC 32.1 (32.0-36.0) g/dL RDW Std Deviation 40.6 (36.4-46.3) fL RDW Coeff of Hussain 12.2 (11.5-14.5) % Plt Count 147 (130-400) K/uL MPV 11.5 (9.4-12.4) fL Immature Gran % (Auto) 0.0 % Neut % (Auto) 67.7 % Lymph % (Auto) 22.3 % [place] % (Auto) 8.0 % Eos % (Auto) 1.0 % Baso % (Auto) 1.0 % Neut # (Auto) 2.04 (1.40-6.50) K/uL Lymph # (Auto) 0.67 L (1.20-3.40) K/uL [place] # (Auto) 0.24 (0.11-0.59) K/uL Eos # (Auto) 0.03 (0.00-0.50) K/uL Baso # (Auto) 0.03 (0.00-0.20) K/uL Immature Gran # (Auto) 0.00 L (0.01-0.20) K/uL Heparin Anti-Xa, Unfract 0.32 0.44 0.53 (0.3-0.7) IU/ml Sodium 141 (136-145) mmol/L Potassium 2.9 L (3.5-5.1) mmol/L Chloride 103 (98-107) mmol/L Carbon Dioxide 34 H (21-32) mmol/L Anion Gap 4 (3-11) BUN 2 L (6-23) mg/dl Creatinine < 0.20 L (0.6-1.4) mg/dl Est Cr Clr Drug Dosing 446.6 ml/min Est GFR ( Amer) > 150.0 ml/min Est GFR (Non-Af Amer) > 150.0 ml/min BUN/Creatinine Ratio TNP Glucose 106 H (70-99(Fasting)) mg/dl Calcium 8.2 L (8.6-10.3) mg/dl Magnesium 1.7 (1.7-2.4) mg/dl Total Bilirubin 0.3 (0.2-1.0) mg/dl AST 14 (13-39) U/L ALT 11 (7-52) U/L Alkaline Phosphatase 49 (34-104) U/L Total Protein 5.6 L D (6.0-8.3) gm/dl Albumin 3.3 L (3.4-5.0) gm/dl Globulin 2.3 L (2.5-4.0) gm/dl Albumin/Globulin Ratio 1.4 (0.9-2) 11/15/23 11/15/23 Range/Units 13:03 11:10 WBC (4.8-10.8) K/ul RBC (4.70-6.10) M/uL Hgb (14.0-18.0) g/dl Hct (42.0-52.0) % MCV (80.0-100.0) fL MCH (25.0-34.0) pg MCHC (32.0-36.0) g/dL RDW Std Deviation (36.4-46.3) fL RDW Coeff of Hussain (11.5-14.5) % Plt Count (130-400) K/uL MPV (9.4-12.4) fL Immature Gran % (Auto) % Neut % (Auto) % Lymph % (Auto) % [place] % (Auto) % Eos % (Auto) % Baso % (Auto) % Neut # (Auto) (1.40-6.50) K/uL Lymph # (Auto) (1.20-3.40) K/uL [place] # (Auto) (0.11-0.59) K/uL Eos # (Auto) (0.00-0.50) K/uL Baso # (Auto) (0.00-0.20) K/uL Immature Gran # (Auto) (0.01-0.20) K/uL Heparin Anti-Xa, Unfract 0.72 H* 1.33 H* (0.3-0.7) IU/ml Sodium (136-145) mmol/L Potassium (3.5-5.1) mmol/L Chloride (98-107) mmol/L Carbon Dioxide (21-32) mmol/L Anion Gap (3-11) BUN (6-23) mg/dl Creatinine (0.6-1.4) mg/dl Est Cr Clr Drug Dosing ml/min Est GFR ( Amer) ml/min Est GFR (Non-Af Amer) ml/min BUN/Creatinine Ratio Glucose (70-99(Fasting)) mg/dl Calcium (8.6-10.3) mg/dl Magnesium (1.7-2.4) mg/dl Total Bilirubin (0.2-1.0) mg/dl AST (13-39) U/L ALT (7-52) U/L Alkaline Phosphatase (34-104) U/L Total Protein (6.0-8.3) gm/dl Albumin (3.4-5.0) gm/dl Globulin (2.5-4.0) gm/dl Albumin/Globulin Ratio (0.9-2) Diagnostic Findings KUB HISTORY: Acute generalized abdominal pain with small bowel obstruction ff up sbo COMPARISON: CT 11/14/2023 FINDINGS: There is decreased gaseous distention of the stomach and small bowel compared to the prior study. Mild persistent mid abdominal small bowel wall thickening with air filled loops of large bowel. Moderate fecal retention of the colon. Surgical clips of the scrotum. No renal calculi. No ureteral calculi. No pneumoperitoneum or pneumatosis. No fracture. IMPRESSION: There is decreased gaseous distention of the stomach and small bowel suggestive of resolving obstruction. Continued follow-up recommended.
[2023-11-16] MEDS: POTASSIUM CHLORIDE / WTR 10 MEQ/100 ML PLCT IV SCH (12:21)
[2023-11-16] MEDS: POTASSIUM CHLORIDE 20 MEQ/15 ML UDC PO STA (12:56)
--- NOTE | 2023-11-16 17:40 | Hospitalist Progress Note ---
Date of Service November 16, 2023 Assessment & Plan (1) Acute hypoxemic respiratory failure: Plan: per admitting service notes with addendum: 48-year-old male with past medical history significant for orthostatic hypotension, irritable bowel syndrome with diarrhea, GERD, ALS, attention deficit disorder without hyperactivity, history of DVT and history of PE, depression with anxiety was brought in because of shortness of breath and abdominal pain. Patient states he did not move his bowels for last 3 to 4 days. States when he came in was having abdominal pain about 4-5/10 in severity associated with nausea currently pain is down to 3/10 in severity. No vomiting. No fevers. No chest pain . Was feeling short of breath. No runny nose or sore throat. No cough. Normal bladder movements. Patient states he is wheelchair-bound for last 3 years. He could not move his extremities. Able to eat regular food and swallows okay but has to be fed. Currently on 5 L he saturating okay. S/p NG tube in the ER.States uses BiPAP while sleeping without oxygen. Acute hypoxemic respiratory failure Bilateral Lower Lobe Pneumonia Currently requiring 5 l oxygen Chest x-ray looks fine. Patient has no vomitings. Does not seem to be a spirated History of PE but patient is on Eliquis But will do CTA chest rule out PE or any other causes Continue oxygen supplementation Probably could be distress from small bowel obstruction with underlying ALS If not improving will consult pulmonary Close monitor 11/[address] evidence of pulmonary embolism. 2. Complete opacification of the left lower lobe bronchi and the medial posterior right lower lobe bronchi with centrilobular opacities throughout the left lower lobe likely representing endobronchial spread of infection. 3. Severe gastric distention. transitioned to Unasyn IV Day 1 Wild Life Photographer consulted 11/15 clinically improving continue Unasyn Day 2 Small bowel obstruction S/p NG tube N.p.o. IV fluids IV antiemetics as needed IV Dilaudid as needed Surgery consult in a.m. 11/14 continue conservative measures IV fluids monitor electrolytes 11/15 clinically improving KUB: SBO resolving clear liquids today ALS Quadriplegia in the setting of ALS Nonambulatory status Uses BiPAP while sleeping Close monitor History of DVT and PE Holding Eliquis until able to take p.o. IV heparin 11/15 transition from heparin to Eliquis tonight at 9pm Attention deficit disorder without hyperactivity Depression with anxiety usual medications resumed GERD Protonix Neuropathy On gabapentin DVT prophylaxis IV heparin-> Rafal Disposition pending lives at home with his Full code Admission and Anticipated Discharge Date Admission Date: November 15, 2023 Subjective ff up for SBO, pneumonia, etc seen resting in bed, awake tries to converse more states he feels improved today abdominal pain is better no nausea breathing also better no other symptoms Review of Systems Review of Systems: all noted and negative except for above Physical Exam Physical Exam: General- oriented x 3, not in distress, speaks in sentences with no effort or accessory muscle use Eyes- anicteric Neck- no JVD Lungs- mild rales at the bases no wheezing good air entry Heart- normal rate, regular rhythm; no murmurs Abdomen- normal bowel sounds, nondistended, soft, no tenderness Extremities- no pretibial edema, no calf tenderness Neuro- alert, oriented x 2; no new gross focal neurologic deficits Skin- warm & dry Results & Data Results & Data Vital Signs (Past 12 Hours) Vital Signs Temp Pulse Pulse Resp BP Pulse Ox O2 Del Method 11/16/23 15:34 105 H 21 144/87 H 100 Oxymask 11/16/23 15:19 81 11/16/23 15:16 36.7 C 96 H 20 128/79 100 Oxymask 11/16/23 11:12 36.8 C 87 19 122/79 100 Oxymask 11/16/23 08:00 Oxymask 11/16/23 07:18 36.4 C L 80 16 110/70 99 Oxymask O2 Flow Rate 11/16/23 15:34 4 11/16/23 15:19 11/16/23 15:16 3 11/16/23 11:12 3.0 11/16/23 08:00 3 11/16/23 07:18 4 all noted and reviewed including below
[2023-11-16] MEDS: MIRTAZAPINE TAB 15 MG TAB PO SCH (20:21)
[2023-11-16] MEDS: APIXABAN 5 MG TABLET PO SCH (21:21)
[2023-11-16] MEDS: clonazePAM 0.25 MG TAB PO SCH (21:21)
[2023-11-17 06:26] LABS: Basophils # (auto) 0.04 K/uL (0.00-0.20); Basophils % (auto) 1.1 %; Eosinophils # (auto) 0.06 K/uL (0.00-0.50); Eosinophils % (auto) 1.6 %; Hematocrit (blood only) 35.1 % (42.0-52.0); Hemoglobin 11.3 g/dl (14.0-18.0); Immature Granulocytes # (auto) 0.01 K/uL (0.01-0.20); Immature Granulocytes % (auto) 0.3 %; Lymphocytes # (auto) 0.93 K/uL (1.20-3.40); Lymphocytes % (auto) 24.9 %; Mean Corpuscular Hemoglobin 29.3 pg (25.0-34.0); Mean Corpuscular Hgb Conc 32.2 g/dL (32.0-36.0); Mean Corpuscular Volume 90.9 fL (80.0-100.0); Monocytes # (auto) 0.32 K/uL (0.11-0.59); Monocytes % (auto) 8.6 %; Neutrophils # (auto) 2.37 K/uL (1.40-6.50); Neutrophils % (auto) 63.5 %; Platelet Count 142 K/uL (130-400); RDW Coefficient of Variation 12.3 % (11.5-14.5); Red Blood Count 3.86 M/uL (4.70-6.10); White Blood Count 3.73 K/ul (4.8-10.8)
[2023-11-17 06:28] LABS: Alanine Aminotransferase 10 U/L (7-52); Albumin Globulin Ratio 1.5 (0.9-2); Albumin Level 3.1 gm/dl (3.4-5.0); Alkaline Phosphatase 46 U/L (34-104); Anion Gap 2 (3-11); Aspartate Aminotransferase 15 U/L (13-39); Bilirubin,Total 0.4 mg/dl (0.2-1.0); Blood Urea Nitrogen 2 mg/dl (6-23); Calcium 8.2 mg/dl (8.6-10.3); Carbon Dioxide 34 mmol/L (21-32); Chloride 104 mmol/L (98-107); Creatinine Clr Calc Pharmacy 467.7 ml/min; Est GFR (African American) > 150.0 ml/min; Est GFR (Non-African American) > 150.0 ml/min; Globulin 2.1 gm/dl (2.5-4.0); Glucose 99 mg/dl (70-99(Fasting)); Magnesium 1.7 mg/dl (1.7-2.4); Potassium 3.5 mmol/L (3.5-5.1); Sodium 140 mmol/L (136-145); Total Protein 5.2 gm/dl (6.0-8.3)
--- NOTE | 2023-11-17 10:54 | Surgery Progress Note ---
Date of Service November 17, 2023 Assessment & Plan (1) Acute hypoxemic respiratory failure: (2) SBO (small bowel obstruction): Plan 48 year-old male with history of ALS, pulmonary embolism, GERD, presented to emergency room with shortness of breath and abdominal pain with associated nausea and no bowel movement for [address] scan with SBO with no clear transition point. He had very distended stomach and NGT placed in which he had 750 cc removed. 11/17/2023: Abdomen, soft, nondistended, nontender and +return of bowel function Plan: SBO resolved Advance diet as tolerated our services signing off Discussed with Dr. liu who agrees with above Admission and Anticipated Discharge Date Admission Date: November 15, 2023 Subjective feeling better no abdominal pain tolerating clear liquids no n,v passing flatus Physical Exam Constitutional: WD/WN, vitals as above cooperative and comfortable; no acute distress and not ill appearing Gastrointestinal (Abdomen): Inspection/Auscultation: abdomen normal to inspection; abdomen not distended Percussion/Palpation: abdomen soft; abdomen nontender, no guarding, abdomen not rigid and abdomen not firm Skin: no rashes, warm and dry Psychiatric: Orientation: alert and oriented x 3 Results & Data Vital Signs (Past 12 Hours) Vital Signs Temp Pulse Pulse Resp BP Pulse Ox O2 Del Method 11/17/23 07:57 36.6 C 61 19 139/66 98 Oxymask 11/17/23 07:26 82 11/17/23 03:00 36.8 C 77 18 100/66 100 Oxymask 11/16/23 23:52 97 H 11/16/23 23:08 O2 Del Method O2 Flow Rate O2 Flow Rate 11/17/23 07:57 4.0 11/17/23 07:26 11/17/23 03:00 11/16/23 23:52 11/16/23 23:08 Oxymask 3 Laboratory Results 11/17/23 Range/Units 05:45 WBC 3.73 L (4.8-10.8) K/ul RBC 3.86 L (4.70-6.10) M/uL Hgb 11.3 L (14.0-18.0) g/dl Hct 35.1 L (42.0-52.0) % MCV 90.9 (80.0-100.0) fL MCH 29.3 (25.0-34.0) pg MCHC 32.2 (32.0-36.0) g/dL RDW Std Deviation 41.0 (36.4-46.3) fL RDW Coeff of Hussain 12.3 (11.5-14.5) % Plt Count 142 (130-400) K/uL MPV 12.0 (9.4-12.4) fL Immature Gran % (Auto) 0.3 % Neut % (Auto) 63.5 % Lymph % (Auto) 24.9 % [place] % (Auto) 8.6 % Eos % (Auto) 1.6 % Baso % (Auto) 1.1 % Neut # (Auto) 2.37 (1.40-6.50) K/uL Lymph # (Auto) 0.93 L (1.20-3.40) K/uL [place] # (Auto) 0.32 (0.11-0.59) K/uL Eos # (Auto) 0.06 (0.00-0.50) K/uL Baso # (Auto) 0.04 (0.00-0.20) K/uL Immature Gran # (Auto) 0.01 (0.01-0.20) K/uL Sodium 140 (136-145) mmol/L Potassium 3.5 D (3.5-5.1) mmol/L Chloride 104 (98-107) mmol/L Carbon Dioxide 34 H (21-32) mmol/L Anion Gap 2 L (3-11) BUN 2 L (6-23) mg/dl Creatinine < 0.20 L (0.6-1.4) mg/dl Est Cr Clr Drug Dosing 467.7 ml/min Est GFR ( Amer) > 150.0 ml/min Est GFR (Non-Af Amer) > 150.0 ml/min BUN/Creatinine Ratio TNP Glucose 99 (70-99(Fasting)) mg/dl Calcium 8.2 L (8.6-10.3) mg/dl Magnesium 1.7 (1.7-2.4) mg/dl Total Bilirubin 0.4 (0.2-1.0) mg/dl AST 15 (13-39) U/L ALT 10 (7-52) U/L Alkaline Phosphatase 46 (34-104) U/L Total Protein 5.2 L (6.0-8.3) gm/dl Albumin 3.1 L (3.4-5.0) gm/dl Globulin 2.1 L (2.5-4.0) gm/dl Albumin/Globulin Ratio 1.5 (0.9-2)
--- NOTE | 2023-11-17 19:25 | Hospitalist Progress Note ---
Date of Service November 17, 2023 Assessment & Plan (1) Acute hypoxemic respiratory failure: Plan: per admitting service notes with addendum: 48-year-old male with past medical history significant for orthostatic hypotension, irritable bowel syndrome with diarrhea, GERD, ALS, attention deficit disorder without hyperactivity, history of DVT and history of PE, depression with anxiety was brought in because of shortness of breath and abdominal pain. Patient states he did not move his bowels for last 3 to 4 days. States when he came in was having abdominal pain about 4-5/10 in severity associated with nausea currently pain is down to 3/10 in severity. No vomiting. No fevers. No chest pain . Was feeling short of breath. No runny nose or sore throat. No cough. Normal bladder movements. Patient states he is wheelchair-bound for last 3 years. He could not move his extremities. Able to eat regular food and swallows okay but has to be fed. Currently on 5 L he saturating okay. S/p NG tube in the ER.States uses BiPAP while sleeping without oxygen. Acute hypoxemic respiratory failure Bilateral Lower Lobe Pneumonia Currently requiring 5 l oxygen Chest x-ray looks fine. Patient has no vomitings. Does not seem to be a spirated History of PE but patient is on Eliquis But will do CTA chest rule out PE or any other causes Continue oxygen supplementation Probably could be distress from small bowel obstruction with underlying ALS If not improving will consult pulmonary Close monitor 11/[address] evidence of pulmonary embolism. 2. Complete opacification of the left lower lobe bronchi and the medial posterior right lower lobe bronchi with centrilobular opacities throughout the left lower lobe likely representing endobronchial spread of infection. 3. Severe gastric distention. transitioned to Unasyn IV Day 1 Functional Mental Disability Teacher consulted 11/15 clinically improving continue Unasyn Day 2 11/16 Continues to improve Home CoughAssist device to be brought in by from home today Continue suctioning as needed Continue Unasyn day #3 Small bowel obstruction S/p NG tube N.p.o. IV fluids IV antiemetics as needed IV Dilaudid as needed Surgery consult in a.m. 11/14 continue conservative measures IV fluids monitor electrolytes 11/15 clinically improving KUB: SBO resolving clear liquids today 11/16 Tolerating clear liquid diet well Will advance to soft diet today ALS Quadriplegia in the setting of ALS Nonambulatory status Uses BiPAP while sleeping Close monitor History of DVT and PE Holding Eliquis until able to take p.o. IV heparin 11/15 transition from heparin to Eliquis tonight at 9pm 11/16 Usual Eliquis has been resumed Attention deficit disorder without hyperactivity Depression with anxiety usual medications resumed GERD Protonix Neuropathy On gabapentin DVT prophylaxis IV heparin->now on usual Eliquis Disposition pending lives at home with his Full code Admission and Anticipated Discharge Date Admission Date: November 15, 2023 Subjective Follow-up for small bowel obstruction, pneumonia with hypoxia, etc. Seen resting in bed, awake and alert Not in distress, answering questions appropriately Patient's at the bedside visiting Patient states he has no abdominal pain today Tolerating clear liquid diet well Positive flatus and BMs Breathing also improving Good amount of mucus retrieved today via deep suctioning by corporate staff accountant No other new symptom Review of Systems Review of Systems: all noted and negative except for above Physical Exam Physical Exam: General- oriented x 3, not in distress, speaks in sentences with no effort or accessory muscle use Eyes- anicteric Neck- no JVD Lungs-mild rhonchi bilaterally, improved compared to yesterday No wheezes Heart- normal rate, regular rhythm; no murmurs Abdomen- normal bowel sounds, nondistended, soft, nontender Extremities- no pretibial edema, no calf tenderness Neuro- alert, oriented x 3; no new gross focal neurologic deficits Skin- warm & dry Results & Data Results & Data Vital Signs (Past 12 Hours) Vital Signs Temp Pulse Pulse Resp BP Pulse Ox O2 Del Method 11/17/23 15:32 111 H 11/17/23 15:26 36.8 C 108 H 16 119/76 100 Oxymask 11/17/23 12:18 36.5 C 93 H 18 113/67 100 Oxymask 11/17/23 07:57 36.6 C 61 19 139/66 98 Oxymask 11/17/23 07:45 Oxymask 11/17/23 07:26 82 O2 Flow Rate 11/17/23 15:32 11/17/23 15:26 5.0 11/17/23 12:18 7 11/17/23 07:57 4.0 11/17/23 07:45 3 11/17/23 07:26 all noted and reviewed including below
[2023-11-18 05:04] LABS: Basophils # (auto) 0.04 K/uL (0.00-0.20); Basophils % (auto) 0.9 %; Eosinophils # (auto) 0.12 K/uL (0.00-0.50); Eosinophils % (auto) 2.6 %; Hemoglobin 11.4 g/dl (14.0-18.0); Lymphocytes # (auto) 1.11 K/uL (1.20-3.40); Lymphocytes % (auto) 24.4 %; Mean Corpuscular Hemoglobin 29.2 pg (25.0-34.0); Mean Corpuscular Hgb Conc 32.6 g/dL (32.0-36.0); Mean Corpuscular Volume 89.7 fL (80.0-100.0); Mean Platelet Volume 12.1 fL (9.4-12.4); Monocytes % (auto) 6.6 %; Neutrophils # (auto) 2.97 K/uL (1.40-6.50); Neutrophils % (auto) 65.5 %; Platelet Count 157 K/uL (130-400); RDW Coefficient of Variation 12.3 % (11.5-14.5); RDW Standard Deviation 39.8 fL (36.4-46.3); White Blood Count 4.54 K/ul (4.8-10.8)
[2023-11-18 05:24] LABS: Alanine Aminotransferase 14 U/L (7-52); Albumin Globulin Ratio 1.5 (0.9-2); Albumin Level 3.1 gm/dl (3.4-5.0); Alkaline Phosphatase 53 U/L (34-104); Anion Gap 3 (3-11); Aspartate Aminotransferase 20 U/L (13-39); Bilirubin,Total 0.4 mg/dl (0.2-1.0); Blood Urea Nitrogen 3 mg/dl (6-23); Calcium 8.2 mg/dl (8.6-10.3); Carbon Dioxide 34 mmol/L (21-32); Chloride 103 mmol/L (98-107); Creatinine Clr Calc Pharmacy 467.7 ml/min; Est GFR (African American) > 150.0 ml/min; Est GFR (Non-African American) > 150.0 ml/min; Globulin 2.1 gm/dl (2.5-4.0); Glucose 94 mg/dl (70-99(Fasting)); Magnesium 1.6 mg/dl (1.7-2.4); Potassium 3.3 mmol/L (3.5-5.1); Sodium 140 mmol/L (136-145); Total Protein 5.2 gm/dl (6.0-8.3)
[2023-11-18] MEDS: MAGNESIUM SULFATE / D5W 1 GM/100 ML BAG IV ONE (06:58)
[2023-11-18] MEDS: POTASSIUM CHLORIDE CRTAB 20 MEQ TABCR PO STA (07:00)
[2023-11-18] MEDS ORDERED: MAGNESIUM SULFATE / D5W 1 GM/100 ML BAG IV ONE (09:23)
[2023-11-18] MEDS: POTASSIUM CHLORIDE 20 MEQ/15 ML UDC PO STA (10:19)
[2023-11-18] MEDS: SCOPOLAMINE 1 MG TDSY TD SCH (14:50)
[2023-11-18] MEDS: ADVANCED PROBIOTIC 625 MG CAPSULE PO SCH (14:50)
[2023-11-18] MEDS: DICLOFENAC SOD 1% GEL 100 GM TUBE EXT SCH (14:56)
--- NOTE | 2023-11-18 15:28 | Hospitalist Progress Note ---
Date of Service November 18, 2023 Assessment & Plan (1) Acute hypoxemic respiratory failure: Plan: per admitting service notes with addendum: 48-year-old male with past medical history significant for orthostatic hypotension, irritable bowel syndrome with diarrhea, GERD, ALS, attention deficit disorder without hyperactivity, history of DVT and history of PE, depression with anxiety was brought in because of shortness of breath and abdominal pain. Patient states he did not move his bowels for last 3 to 4 days. States when he came in was having abdominal pain about 4-5/10 in severity associated with nausea currently pain is down to 3/10 in severity. No vomiting. No fevers. No chest pain . Was feeling short of breath. No runny nose or sore throat. No cough. Normal bladder movements. Patient states he is wheelchair-bound for last 3 years. He could not move his extremities. Able to eat regular food and swallows okay but has to be fed. Currently on 5 L he saturating okay. S/p NG tube in the ER.States uses BiPAP while sleeping without oxygen. Acute hypoxemic respiratory failure Bilateral Lower Lobe Pneumonia Currently requiring 5 l oxygen Chest x-ray looks fine. Patient has no vomitings. Does not seem to be a spirated History of PE but patient is on Eliquis But will do CTA chest rule out PE or any other causes Continue oxygen supplementation Probably could be distress from small bowel obstruction with underlying ALS If not improving will consult pulmonary Close monitor 11/[address] evidence of pulmonary embolism. 2. Complete opacification of the left lower lobe bronchi and the medial posterior right lower lobe bronchi with centrilobular opacities throughout the left lower lobe likely representing endobronchial spread of infection. 3. Severe gastric distention. transitioned to Unasyn IV Day 1 Environmental Education Specialist consulted 11/15 clinically improving continue Unasyn Day 2 11/16 Continues to improve Home CoughAssist device to be brought in by from home today Continue suctioning as needed Continue Unasyn day #3 11/17 clinically improving on room air now continue Unasyn Day # 4 Small bowel obstruction S/p NG tube N.p.o. IV fluids IV antiemetics as needed IV Dilaudid as needed Surgery consult in a.m. 11/14 continue conservative measures IV fluids monitor electrolytes 11/15 clinically improving KUB: SBO resolving clear liquids today 11/16 Tolerating clear liquid diet well Will advance to soft diet today 11/17 tolerating soft diet ALS Quadriplegia in the setting of ALS Nonambulatory status Uses BiPAP while sleeping Close monitor History of DVT and PE Holding Eliquis until able to take p.o. IV heparin 11/15 transition from heparin to Eliquis tonight at 9pm 11/16 Usual Eliquis has been resumed 11/17 on usual Eliquis Attention deficit disorder without hyperactivity Depression with anxiety usual medications resumed GERD Protonix Neuropathy On gabapentin DVT prophylaxis IV heparin->now on usual Eliquis Disposition anticipate d/c home on Monday lives at home with his Full code Admission and Anticipated Discharge Date Admission Date: November 15, 2023 Subjective Follow-up for small bowel obstruction, etc. Seen resting in bed, awake and alert, brighter, comfortable States he continues to feel improved today Breathing is better, less cough No abdominal pain, tolerating diet well Positive BMs Reporting some muscle discomfort- posterior neck No other symptom Review of Systems Review of Systems: all noted and negative except for above Physical Exam Physical Exam: General- oriented x 3, not in distress, speaks in sentences with no effort or accessory muscle use Eyes- anicteric Neck- no JVD Lungs-mild rhonchi at the bases Heart- normal rate, regular rhythm; no murmurs Abdomen- normal bowel sounds, nondistended, soft, nontender Extremities- no pretibial edema, no calf tenderness Neuro- alert, oriented x 3; no new gross focal neurologic deficits Skin- warm & dry Results & Data Results & Data Vital Signs (Past 12 Hours) Vital Signs Temp Pulse Pulse Resp BP Pulse Ox O2 Del Method 11/18/23 15:12 111 H 11/18/23 11:36 74 11/18/23 11:00 36.3 C L 91 H 16 134/81 97 Room Air 11/18/23 08:04 36.6 C 90 16 132/81 98 Room Air 11/18/23 08:00 Room Air all noted and reviewed including below
[2023-11-18] MEDS: CHECK SCOPOLAMINE PATCH PLACEMENT SCH (16:08)
[2023-11-18] MEDS: diphenhydrAMINE HCL 25 MG/10 ML UDC PO ONE (17:40)
--- NOTE | 2023-11-18 20:26 | XRay Report ---
XR chest 1V portable CLINICAL HISTORY: ff pneumonia TECHNIQUE: Single frontal radiograph of the chest was obtained. Comparison: Comparison is made to chest radiograph 11/14/2023 FINDINGS: No lines and tubes are seen. The cardiomediastinal silhouette is normal. Atelectasis is noted in the right lung base. No evidence of pleural effusion or pneumothorax. IMPRESSION: No acute abnormality and in particular no radiographic evidence of pneumonia. ACT 112: Negative or not required by law. Electronically signed by: Keny Cantu M.D. 11/18/2023 8:24 PM
[2023-11-19 05:28] LABS: Basophils # (auto) 0.04 K/uL (0.00-0.20); Basophils % (auto) 0.9 %; Eosinophils # (auto) 0.23 K/uL (0.00-0.50); Eosinophils % (auto) 5.2 %; Hematocrit (blood only) 37.3 % (42.0-52.0); Hemoglobin 12.3 g/dl (14.0-18.0); Immature Granulocytes # (auto) 0.01 K/uL (0.01-0.20); Immature Granulocytes % (auto) 0.2 %; Lymphocytes # (auto) 1.21 K/uL (1.20-3.40); Lymphocytes % (auto) 27.5 %; Mean Corpuscular Hemoglobin 29.4 pg (25.0-34.0); Mean Corpuscular Volume 89.2 fL (80.0-100.0); Mean Platelet Volume 12.2 fL (9.4-12.4); Monocytes # (auto) 0.34 K/uL (0.11-0.59); Monocytes % (auto) 7.7 %; Neutrophils # (auto) 2.57 K/uL (1.40-6.50); Neutrophils % (auto) 58.5 %; Platelet Count 160 K/uL (130-400); RDW Coefficient of Variation 12.5 % (11.5-14.5); RDW Standard Deviation 40.9 fL (36.4-46.3); Red Blood Count 4.18 M/uL (4.70-6.10)
[2023-11-19 06:05] LABS: Alanine Aminotransferase 16 U/L (7-52); Albumin Globulin Ratio 1.3 (0.9-2); Albumin Level 3.3 gm/dl (3.4-5.0); Alkaline Phosphatase 70 U/L (34-104); Anion Gap 5 (3-11); Aspartate Aminotransferase 20 U/L (13-39); Bilirubin,Total 0.3 mg/dl (0.2-1.0); Blood Urea Nitrogen 3 mg/dl (6-23); Calcium 8.7 mg/dl (8.6-10.3); Carbon Dioxide 30 mmol/L (21-32); Chloride 104 mmol/L (98-107); Creatinine Clr Calc Pharmacy 467.7 ml/min; Est GFR (African American) > 150.0 ml/min; Est GFR (Non-African American) > 150.0 ml/min; Globulin 2.5 gm/dl (2.5-4.0); Glucose 101 mg/dl (70-99(Fasting)); Potassium 3.6 mmol/L (3.5-5.1); Sodium 139 mmol/L (136-145); Total Protein 5.8 gm/dl (6.0-8.3)
[2023-11-19] MEDS ORDERED: ACETAMINOPHEN 325 MG TAB PO PRN (12:57)
[2023-11-19] MEDS: DEXTROAMPHETAMINE/AMPHETAMINE IR 20 MG TAB PO SCH (14:38)
--- NOTE | 2023-11-19 15:13 | Hospitalist Progress Note ---
Date of Service November 19, 2023 Assessment & Plan (1) Acute hypoxemic respiratory failure: Plan: per admitting service notes with addendum: 48-year-old male with past medical history significant for orthostatic hypotension, irritable bowel syndrome with diarrhea, GERD, ALS, attention deficit disorder without hyperactivity, history of DVT and history of PE, depression with anxiety was brought in because of shortness of breath and abdominal pain. Patient states he did not move his bowels for last 3 to 4 days. States when he came in was having abdominal pain about 4-5/10 in severity associated with nausea currently pain is down to 3/10 in severity. No vomiting. No fevers. No chest pain . Was feeling short of breath. No runny nose or sore throat. No cough. Normal bladder movements. Patient states he is wheelchair-bound for last 3 years. He could not move his extremities. Able to eat regular food and swallows okay but has to be fed. Currently on 5 L he saturating okay. S/p NG tube in the ER.States uses BiPAP while sleeping without oxygen. Acute hypoxemic respiratory failure Bilateral Lower Lobe Pneumonia Currently requiring 5 l oxygen Chest x-ray looks fine. Patient has no vomitings. Does not seem to be aspirated History of PE but patient is on Eliquis But will do CTA chest rule out PE or any other causes Continue oxygen supplementation Probably could be distress from small bowel obstruction with underlying ALS If not improving will consult pulmonary Close monitor 11/[address] evidence of pulmonary embolism. 2. Complete opacification of the left lower lobe bronchi and the medial posterior right lower lobe bronchi with centrilobular opacities throughout the left lower lobe likely representing endobronchial spread of infection. 3. Severe gastric distention. transitioned to Unasyn IV Day 1 Managing Broker consulted 11/15 clinically improving continue Unasyn Day 2 11/16 Continues to improve Home CoughAssist device to be brought in by from home today Continue suctioning as needed Continue Unasyn day #3 11/17 clinically improving on room air now continue Unasyn Day # 4 11/18 improved on Unasyn Day 5 transition to Augmentin upon discharge Small bowel obstruction S/p NG tube N.p.o. IV fluids IV antiemetics as needed IV Dilaudid as needed Surgery consult in a.m. 11/14 continue conservative measures IV fluids monitor electrolytes 11/15 clinically improving KUB: SBO resolving clear liquids today 11/16 Tolerating clear liquid diet well Will advance to soft diet today 11/17 tolerating soft diet 11/18 (+) BMs doing well on soft diet ALS Quadriplegia in the setting of ALS Nonambulatory status Uses BiPAP while sleeping Close monitor History of DVT and PE Holding Eliquis until able to take p.o. IV heparin 11/15 transition from heparin to Eliquis tonight at 9pm 11/16 Usual Eliquis has been resumed 11/18 on Eliquis Attention deficit disorder without hyperactivity Depression with anxiety usual medications resumed GERD Protonix Neuropathy On gabapentin DVT prophylaxis IV heparin->now on usual Eliquis Disposition anticipate d/c home on Monday lives at home with his Full code Admission and Anticipated Discharge Date Admission Date: November 15, 2023 Subjective ff up for acute hypoxic respiratory failure etc seen resting in bed, comfortable on room air feels fine overall breathing is better, minimal cough no abdominal pain tolerating diet well no other new symptoms Review of Systems Review of Systems: all noted and negative except for above Physical Exam Physical Exam: General- oriented x 3, not in distress, speaks in sentences with no effort or accessory muscle use Eyes- anicteric Neck- no JVD Lungs- clear breath sounds bilaterally, no rales/wheezes Heart- normal rate, regular rhythm; no murmurs Abdomen- normal bowel sounds, nondistended, soft, no tenderness Extremities- no pretibial edema, no calf tenderness Neuro- alert, oriented x 3; no new gross focal neurologic deficits Skin- warm & dry Results & Data Results & Data Vital Signs (Past 12 Hours) Vital Signs Temp Pulse Pulse Resp BP Pulse Ox O2 Del Method 11/19/23 11:25 36.5 C 103 H 18 114/78 98 Room Air 11/19/23 10:44 Room Air 11/19/23 07:52 82 11/19/23 07:30 36.2 C L 96 H 16 115/75 97 Room Air 11/19/23 04:00 36.2 C L 86 18 105/71 94 Room Air all noted and reviewed including below
[2023-11-20 06:29] LABS: Basophils # (auto) 0.04 K/uL (0.00-0.20); Basophils % (auto) 0.8 %; Eosinophils # (auto) 0.28 K/uL (0.00-0.50); Eosinophils % (auto) 5.7 %; Hematocrit (blood only) 40.6 % (42.0-52.0); Hemoglobin 13.4 g/dl (14.0-18.0); Immature Granulocytes # (auto) 0.01 K/uL (0.01-0.20); Immature Granulocytes % (auto) 0.2 %; Lymphocytes # (auto) 1.26 K/uL (1.20-3.40); Lymphocytes % (auto) 25.7 %; Mean Corpuscular Hemoglobin 29.3 pg (25.0-34.0); Mean Corpuscular Volume 88.8 fL (80.0-100.0); Mean Platelet Volume 12.2 fL (9.4-12.4); Monocytes # (auto) 0.36 K/uL (0.11-0.59); Monocytes % (auto) 7.3 %; Neutrophils # (auto) 2.96 K/uL (1.40-6.50); Neutrophils % (auto) 60.3 %; Platelet Count 156 K/uL (130-400); RDW Coefficient of Variation 12.8 % (11.5-14.5); RDW Standard Deviation 41.5 fL (36.4-46.3); Red Blood Count 4.57 M/uL (4.70-6.10); White Blood Count 4.91 K/ul (4.8-10.8)
[2023-11-20 06:37] LABS: Alanine Aminotransferase 20 U/L (7-52); Albumin Globulin Ratio 1.4 (0.9-2); Albumin Level 3.5 gm/dl (3.4-5.0); Alkaline Phosphatase 73 U/L (34-104); Anion Gap 5 (3-11); Aspartate Aminotransferase 27 U/L (13-39); Bilirubin,Total 0.4 mg/dl (0.2-1.0); Blood Urea Nitrogen 3 mg/dl (6-23); Calcium 8.7 mg/dl (8.6-10.3); Carbon Dioxide 30 mmol/L (21-32); Chloride 102 mmol/L (98-107); Creatinine Clr Calc Pharmacy 407.6 ml/min; Est GFR (African American) > 150.0 ml/min; Est GFR (Non-African American) > 150.0 ml/min; Globulin 2.5 gm/dl (2.5-4.0); Glucose 92 mg/dl (70-99(Fasting)); Magnesium 1.9 mg/dl (1.7-2.4); Potassium 3.7 mmol/L (3.5-5.1); Sodium 137 mmol/L (136-145)
--- NOTE | 2023-11-20 11:54 | Discharge Summary ---
Discharge Summary Date of Service November 20, 2023 Notes For Next Care Provider Medication Changes From Visit Augmentin 875 mg p.o. x 3 more tablets to complete 7-day course MiraLAX daily Probiotics daily Admission HPI Per Admitting Provider 48-year-old male with past medical history significant for orthostatic hypotension, irritable bowel syndrome with diarrhea, GERD, ALS, attention deficit disorder without hyperactivity, history of DVT and history of PE, depression with anxiety was brought in because of shortness of breath and abdominal pain. Patient states he did not move his bowels for last 3 to 4 days. States when he came in was having abdominal pain about 4-5/10 in severity associated with nausea currently pain is down to 3/10 in severity. No vomiting. No fevers. No chest pain . Was feeling short of breath. No runny nose or sore throat. No cough. Normal bladder movements. Patient states he is wheelchair-bound for last 3 years. He could not move his extremities. Able to eat regular food and swallows okay but has to be fed. Currently on 5 L he saturating okay. S/p NG tube in the ER.States uses BiPAP while sleeping without oxygen. Past medical history. As mentioned above. Past surgical history. Circumcision. Graft rib cartilage to face. Knee arthroscopy. Rhinoplasty. Appendectomy. Revision of ulnar nerve at elbow left side. Vasectomy. Social history. . No smoking. Alcohol rare. No drug use Family history. Father had blood clot. Depression. Mother had hypertension. Maternal grandfather had mouth cancer. Stroke. Maternal grandmother had hypertension. Paternal grandfather had [place]. Principal Dx & Hospital Course #1 = Principal Diagnosis (1) Acute hypoxemic respiratory failure: per admitting service notes with addendum: 48-year-old male with past medical history significant for orthostatic hypotension, irritable bowel syndrome with diarrhea, GERD, ALS, attention deficit disorder without hyperactivity, history of DVT and history of PE, depression with anxiety was brought in because of shortness of breath and abdominal pain. Patient states he did not move his bowels for last 3 to 4 days. States when he came in was having abdominal pain about 4-5/10 in severity associated with nausea currently pain is down to 3/10 in severity. No vomiting. No fevers. No chest pain . Was feeling short of breath. No runny nose or sore throat. No cough. Normal bladder movements. Patient states he is wheelchair-bound for last 3 years. He could not move his extremities. Able to eat regular food and swallows okay but has to be fed. Currently on 5 L he saturating okay. S/p NG tube in the ER.States uses BiPAP while sleeping without oxygen. Acute hypoxemic respiratory failure Bilateral Lower Lobe Pneumonia Currently requiring 5 l oxygen Chest x-ray looks fine. Patient has no vomitings. Does not seem to be aspirated History of PE but patient is on Eliquis But will do CTA chest rule out PE or any other causes Continue oxygen supplementation /6 CT angiogram of the chest: 1. No CT evidence of pulmonary embolism. 2. Complete opacification of the left lower lobe bronchi and the medial posterior right lower lobe bronchi with centrilobular opacities throughout the left lower lobe likely representing endobronchial spread of infection. 3. Severe gastric distention. Pulmonology service consulted Transition to Unasyn IV Provided with nebs, CoughAssist device, suctioning Patient gradually improved Weaned off oxygen supplement Doing well on room air Finish 1 1/2 days of Augmentin to complete 7-day course of antibiotic therapy Continue with CoughAssist device and suctioning at home Small bowel obstruction S/p NG tube N.p.o. IV fluids IV antiemetics as needed IV Dilaudid as needed General surgery consulted Recommended conservative management Patient clinically improved KUB: SBO resolving Diet advanced slowly Doing well on discharge today Tolerating diet well On Bentyl and Levsin scheduled at home, advised to change to as needed only ALS Quadriplegia in the setting of ALS Nonambulatory status Uses BiPAP while sleeping History of DVT and PE Initial bleed placed on IV heparin Transition to usual Eliquis Attention deficit disorder without hyperactivity Depression with anxiety usual medications resumed GERD Protonix Neuropathy On gabapentin DC home PCP follow-up in 1 week plan of care discussed with patient and his at bedside in detail and at length all questions answered They are understanding, agreeable, comfortable with the plan of care Discharge Exam General- oriented x 3, not in distress, speaks in sentences with no effort or accessory muscle use Eyes- anicteric Neck- no JVD Lungs- clear breath sounds bilaterally, no rales/wheezes Heart- normal rate, regular rhythm; no murmurs Abdomen- normal bowel sounds, nondistended, soft, nontender Extremities- no pretibial edema, no calf tenderness Neuro- alert, oriented x 3; no new gross focal neurologic deficits Skin- warm & dry Updated Medication List Medication Instructions Recorded Confirmed Type dextroamphetamine-amphetamine 20 20 mg PO TID 01/31/19 11/14/23 History mg tablet escitalopram oxalate 20 mg tablet 20 mg PO QAM 01/31/19 11/14/23 History omeprazole 20 mg capsule,delayed 20 mg PO QAM 01/31/19 11/14/23 History release apixaban 5 mg tablet (Eliquis) 5 mg PO BID 11/19/20 11/14/23 History ipratropium 0.5 mg-albuterol 3 mg 3 ml inhalation Q6H PRN WHEEZING 07/25/23 11/14/23 History (2.5 mg base)/3 mL nebulization OR SOB soln ondansetron 4 mg disintegrating 4 mg PO Q6H PRN nausea and 07/25/23 11/14/23 Rx tablet vomiting #14 tabs ergocalciferol (vitamin D2) 1,250 50,000 unit PO Q7D #7 caps 08/17/23 11/14/23 Rx mcg (50,000 unit) capsule clonazepam 0.5 mg tablet 0.25 mg PO Q OTHER DAY 11/14/23 11/14/23 History gabapentin 300 mg capsule 300 mg PO TID 11/14/23 11/14/23 History glycopyrrolate 1 mg tablet 1 mg PO HS 11/14/23 11/14/23 History mirtazapine 15 mg tablet 15 mg PO HS 11/14/23 11/14/23 History amoxicillin 875 mg-potassium 1 tab PO BID #3 tabs 11/20/23 Rx clavulanate 125 mg tablet dicyclomine 10 mg capsule 10 mg PO TID PRN abdominal 11/20/23 11/14/23 Rx cramping 30 days #0 caps hyoscyamine sulfate 0.375 mg 0.375 mg PO BID PRN abdominal 11/20/23 Rx tablet,extended release,12 hr cramping 30 days #14 tabs polyethylene glycol 3350 17 17 g PO DAILY #238 grams 11/20/23 Rx gram/dose oral powder (Miralax) Hospital Stay Data Consultations 11/14/23 23:14 ED Decision to Admit Stat 11/15/23 08:00 Consult General Surgery Routine Consult Pulmonology Routine Diagnostic Imagining Performed Laboratory Results WBC 4.91 K/ul (4.8-10.8) 11/20/23 06:02 RBC 4.57 M/uL (4.70-6.10) L 11/20/23 06:02 Hgb 13.4 g/dl (14.0-18.0) L 11/20/23 06:02 Hct 40.6 % (42.0-52.0) L 11/20/23 06:02 MCV 88.8 fL (80.0-100.0) 11/20/23 06:02 MCH 29.3 pg (25.0-34.0) 11/20/23 06:02 MCHC 33.0 g/dL (32.0-36.0) 11/20/23 06:02 RDW Std Deviation 41.5 fL (36.4-46.3) 11/20/23 06:02 RDW Coeff of Hussain 12.8 % (11.5-14.5) 11/20/23 06:02 Plt Count 156 K/uL (130-400) 11/20/23 06:02 MPV 12.2 fL (9.4-12.4) 11/20/23 06:02 Immature Gran % (Auto) 0.2 % 11/20/23 06:02 Neut % (Auto) 60.3 % 11/20/23 06:02 Lymph % (Auto) 25.7 % 11/20/23 06:02 [place] % (Auto) 7.3 % 11/20/23 06:02 Eos % (Auto) 5.7 % 11/20/23 06:02 Baso % (Auto) 0.8 % 11/20/23 06:02 Neut # (Auto) 2.96 K/uL (1.40-6.50) 11/20/23 06:02 Lymph # (Auto) 1.26 K/uL (1.20-3.40) 11/20/23 06:02 [place] # (Auto) 0.36 K/uL (0.11-0.59) 11/20/23 06:02 Eos # (Auto) 0.28 K/uL (0.00-0.50) 11/20/23 06:02 Baso # (Auto) 0.04 K/uL (0.00-0.20) 11/20/23 06:02 Immature Gran # (Auto) 0.01 K/uL (0.01-0.20) 11/20/23 06:02 PT 11.4 Seconds (9.0-12.0) 11/14/23 19:30 INR 1.0 (0.9-1.1) 11/14/23 19:30 APTT 28 Seconds (21-31) 11/14/23 19:30 PTT Ratio 1.0 11/14/23 19:30 Heparin Anti-Xa, Unfract 0.32 IU/ml (0.3-0.7) 11/16/23 05:36 Sodium 137 mmol/L (136-145) 11/20/23 06:02 Potassium 3.7 mmol/L (3.5-5.1) 11/20/23 06:02 Chloride 102 mmol/L (98-107) 11/20/23 06:02 Carbon Dioxide 30 mmol/L (21-32) 11/20/23 06:02 Anion Gap 5 (3-11) 11/20/23 06:02 BUN 3 mg/dl (6-23) L 11/20/23 06:02 Creatinine < 0.20 mg/dl (0.6-1.4) L 11/20/23 06:02 Est Cr Clr Drug Dosing 407.6 ml/min 11/20/23 06:02 Est GFR ( Amer) > 150.0 ml/min 11/20/23 06:02 Est GFR (Non-Af Amer) > 150.0 ml/min 11/20/23 06:02 BUN/Creatinine Ratio TNP 11/20/23 06:02 Glucose 92 mg/dl (70-99(Fasting)) 11/20/23 06:02 Lactate 1.1 mmol/L (0.4-2.0) 11/14/23 21:13 Calcium 8.7 mg/dl (8.6-10.3) 11/20/23 06:02 Magnesium 1.9 mg/dl (1.7-2.4) 11/20/23 06:02 Total Bilirubin 0.4 mg/dl (0.2-1.0) 11/20/23 06:02 AST 27 U/L (13-39) 11/20/23 06:02 ALT 20 U/L (7-52) 11/20/23 06:02 Alkaline Phosphatase 73 U/L (34-104) 11/20/23 06:02 Troponin I High Sens 4.9 pg/ml (0-20) 11/14/23 19:30 Total Protein 6.0 gm/dl (6.0-8.3) 11/20/23 06:02 Albumin 3.5 gm/dl (3.4-5.0) 11/20/23 06:02 Globulin 2.5 gm/dl (2.5-4.0) 11/20/23 06:02 Albumin/Globulin Ratio 1.4 (0.9-2) 11/20/23 06:02 Procalcitonin 0.05 ng/ml (0-0.5) 11/14/23 19:30 Urine Color Yellow 11/14/23 22:10 Urine Appearance Clear (Clear) 11/14/23 22:10 Urine pH 6.5 (4.5-7.5) 11/14/23 22:10 Ur Specific [place] 1.025 (1.000-1.030) 11/14/23 22:10 Urine Protein Negative (Negative) 11/14/23 22:10 Urine Glucose (UA) Negative (Negative) 11/14/23 22:10 Urine Ketones 1+ (Negative) H 11/14/23 22:10 Urine Blood Negative (Negative) 11/14/23 22:10 Urine Nitrite Negative (Negative) 11/14/23 22:10 Urine Bilirubin Negative (Negative) 11/14/23 22:10 Urine Urobilinogen Negative (Negative) 11/14/23 22:10 Ur Leukocyte Esterase Negative (Negative) 11/14/23 22:10 Adenovirus (PCR) Not Detected (NotDetected) 11/14/23 20:28 B. pertussis DNA (PCR) Not Detected (NotDetected) 11/14/23 20:28 B.parapertussis DNA PCR Not Detected (NotDetected) 11/14/23 20:28 C. pneumoniae DNA (PCR) Not Detected (NotDetected) 11/14/23 20:28 Coronavirus OC43 (PCR) Not Detected (NotDetected) 11/14/23 20:28 Coronavirus HKU1 (PCR) Not Detected (NotDetected) 11/14/23 20:28 Coronavirus 229E (PCR) Not Detected (NotDetected) 11/14/23 20:28 SARS-CoV-2 (PCR) Not Detected (NotDetected) 11/14/23 20:28 Coronavirus NL63 (PCR) Not Detected (NotDetected) 11/14/23 20:28 Human Metapneumovir PCR Not Detected (NotDetected) 11/14/23 20:28 Influenza Type A (PCR) Not Detected (NotDetected) 11/14/23 20:28 Influenza Type B (PCR) Not Detected (NotDetected) 11/14/23 20:28 M. pneumoniae (PCR) Not Detected (NotDetected) 11/14/23 20:28 Parainfluenza 1 (PCR) Not Detected (NotDetected) 11/14/23 20:28 Parainfluenza 2 (PCR) Not Detected (NotDetected) 11/14/23 20:28 Parainfluenza 3 (PCR) Not Detected (NotDetected) 11/14/23 20:28 Parainfluenza 4 (PCR) Not Detected (NotDetected) 11/14/23 20:28 RSV (PCR) Not Detected (NotDetected) 11/14/23 20:28 Entero/Rhino (PCR) Not Detected (NotDetected) 11/14/23 20:28 Impressions Abdomen/Pelvis CT 11/14/23 20:21 Exam(s): CT ABDOMEN + PELVIS Without Contrast EXAM: CT Abdomen and Pelvis Without Intravenous Contrast CLINICAL HISTORY: Reason for exam: abdominal pain. TECHNIQUE: Axial computed tomography images of the abdomen and pelvis without intravenous contrast. CTDI is 15.2 mGy and DLP is 870.66 mGy-cm. Automated exposure control was utilized for the study. A dose lowering technique was utilized adhering to the principles of ALARA. COMPARISON: No relevant prior studies available. FINDINGS: Lung bases: Bibasilar atelectasis, left greater than right. ABDOMEN: Liver: Small hepatic cysts. Gallbladder and bile ducts: Unremarkable. No calcified stones. No ductal dilation. Pancreas: Unremarkable. No ductal dilation. Spleen: Unremarkable. No splenomegaly. Adrenals: Unremarkable. No mass. Kidneys and ureters: Unremarkable. No obstructing stones. No hydronephrosis. Stomach and bowel: The stomach is markedly distended fluid and gas. Dilated loops of small bowel measuring up to 3.4 cm, characteristic of moderate small bowel obstruction. No clear transition point. No mucosal thickening. PELVIS: Appendix: Postoperative changes near the cecum may be secondary to prior appendectomy. The appendix is not visualized.. Bladder: Distended. No stones. Reproductive: Postoperative changes in the bilateral scrotal regions. ABDOMEN and PELVIS: Intraperitoneal space: Unremarkable. No free air. No significant fluid collection. Bones/joints: No acute fracture. No dislocation. Soft tissues: Unremarkable. Vasculature: Unremarkable. No abdominal aortic aneurysm. Lymph nodes: Unremarkable. No enlarged lymph nodes. IMPRESSION: The stomach is markedly distended fluid and gas. Dilated loops of small bowel measuring up to 3.4 cm, characteristic of moderate small bowel obstruction. No clear transition point. Electronically signed by: Minoo Mac MD 11/14/23 21:08 PM Chest CTA 11/15/23 01:20 Exam(s): CTA CHEST IV Amt: 117 ML OPTIRAY 320 EXAM: CT Angiography Chest With Intravenous Contrast CLINICAL HISTORY: Reason for exam: PE. TECHNIQUE: Axial computed tomographic angiography images of the chest with intravenous contrast. CTDI is 13.46 mGy and DLP is 421.08 mGy-cm. Automated exposure control was utilized for the study. A dose lowering technique was utilized adhering to the principles of ALARA. MIP reconstructed images were created and reviewed. COMPARISON: 02/14/2020 FINDINGS: Pulmonary arteries: Unremarkable. No CT evidence of pulmonary embolism. Aorta: No acute findings. No thoracic aortic aneurysm. Lungs: Complete opacification of the left lower lobe bronchi and the medial posterior right lower lobe bronchi. Centrilobular opacities throughout the left lower lobe likely representing endobronchial spread of infection. Pleural space: Unremarkable. No significant effusion. No pneumothorax. Heart: Unremarkable. No cardiomegaly. No significant pericardial effusion. No evidence of RV dysfunction. Bones/joints: No acute fracture. No dislocation. Soft tissues: Unremarkable. Lymph nodes: Unremarkable. No enlarged lymph nodes. Liver: 1.2 cm simple cyst in the posterior right lobe of the liver. Stomach and bowel: Severe gastric distention. IMPRESSION: 1. No CT evidence of pulmonary embolism. 2. Complete opacification of the left lower lobe bronchi and the medial posterior right lower lobe bronchi with centrilobular opacities throughout the left lower lobe likely representing endobronchial spread of infection. 3. Severe gastric distention. Electronically signed by: Curt Pedraza M.D. 11/15/23 03:01 AM KUB X-Ray 11/16/23 08:40 KUB HISTORY: Acute generalized abdominal pain with small bowel obstruction ff up sbo COMPARISON: CT 11/14/2023 FINDINGS: There is decreased gaseous distention of the stomach and small bowel compared to the prior study. Mild persistent mid abdominal small bowel wall thickening with air filled loops of large bowel. Moderate fecal retention of the colon. Surgical clips of the scrotum. No renal calculi. No ureteral calculi. No pneumoperitoneum or pneumatosis. No fracture. IMPRESSION: There is decreased gaseous distention of the stomach and small bowel suggestive of resolving obstruction. Continued follow-up recommended. ACT 112: Negative or not required by law. The above report was generated using voice recognition software. It may contain grammatical, syntax or spelling errors. Electronically signed by: Chang Cadena M.D. 11/16/2023 10:14 AM Chest X-Ray 11/18/23 13:57 XR chest 1V portable CLINICAL HISTORY: ff pneumonia TECHNIQUE: Single frontal radiograph of the chest was obtained. Comparison: Comparison is made to chest radiograph 11/14/2023 FINDINGS: No lines and tubes are seen. The cardiomediastinal silhouette is normal. Atel ectasis is noted in the right lung base. No evidence of pleural effusion or pneumothorax. IMPRESSION: No acute abnormality and in particular no radiographic evidence of pneumonia. ACT 112: Negative or not required by law. Electronically signed by: Keny Cantu M.D. 11/18/2023 8:24 PM Discharge Instructions Given to Patient (Per Discharging Provider) PLEASE REFER TO YOUR NEW MEDICATION LIST AND FOLLOW INSTRUCTIONS CAREFULLY. YOUR NEW MEDICATIONS INCLUDE: Augmentin-antibiotic for pneumonia Miralax- stool softener Please take a probiotic daily for at least 1 month. ([employer] recommended). PLEASE CALL YOUR PRIMARY CARE PHYSICIAN OR RETURN TO THE ER IF WITH WORSENING OF SYMPTOMS, INCLUDING Shortness of breath, cough, fevers or chills, Abdominal pain, nausea vomiting, etc. FOLLOW UP WITH PRIMARY CARE PHYSICIAN OUTLINED ABOVE. Total Time Total Time Spent Total Time Spent (In Minutes): >30 minutes
== END 2023-11-20 15:07 | disposition home or self-care (01) | DRG 388 ==
LOC: ED 18:34 → EDINP 11-15 01:03 → SUATTDRO 11-15 01:03 → 4W 11-15 02:14

== ENCOUNTER 2024-02-05 20:28 | Inpatient (IN) ==
--- OUTSIDE RECORDS SUMMARY | 2024-02-05 20:33 | External Medical Summary | Summary of Care ---
Author Name Unknown Organization [facility] Address [address] [place] [address] Phone [phone] Care Team Providers Care Director Of Physical Therapy Name Role Phone Keith Cross MD Primary Care Provider [phone] Encounter Details Date Type Department Care Team (Late st Contact Info) Description 11/27/2023 11:00 AM EDT Telemedicine Family [facility] [address] [place] [address] Keith Cross MD [address] [place] [address] Hospital discharge follow-up*; Partial small bowel obstruction (HCC); ALS (amyotrophic lateral sclerosis) (HCC); Personal history of DVT (deep vein thrombosis); History of pulmonary embolism; Gastroesophageal reflux disease without esophagitis Allergies Active Allergy Reactions Criticality Noted Date Comments Tramadol Hcl 12/08/2011 Gi upset documented as of this encounter (statuses as of 11/27/2023) Medications Medication Sig Dispensed Refills Start Date [...] 120 Capsule 5 06/19/2023 Active Neomycin-Polymyxi n-HC 3.5-22007-4 Otic Solution Administer 4 Drops into ears [...] Capsule 1 09/14/2023 Active Vitamin D (Ergocalciferol) 62810 UNIT Oral Capsule Take 1 Capsule by mouth once a week. 12 Capsule 0 10/06/2023 Active Apixaban 5 MG Oral Tablet (Eliquis) TAKE 1 TABLET BY MOUTH TWO TIMES DAILY 180 Tablet 0 11/01/2023 Active Scopolamine 1 MG/3DAYS Transdermal Patch 72 Hour (Transderm Scop) Place 1 Patch over 72 hours topically on the skin every 3 days. 10 Patch 12 11/14/2023 Active LORazepam 1 MG Oral Tablet (Ativan) Take 1 Tablet by mouth every 6 hours as needed for Anxiety. 0 11/21/2023 Active Bisacodyl 10 MG Rectal Suppository (Dulcolax) Administer 1 Suppository into the rectum daily as needed for Constipation. Do not use for more than 1 week. 20 Suppository 1 11/27/2023 Active documented as of this encounter (statuses as of 11/27/2023) Active Problems Problem Noted Date Diagnosed Date Depression with anxiety 06/16/2023 Personal history of DVT (deep vein thrombosis) 0 04/09/2021 History of pulmonary embolism 04/09/2021 ALS (amyotrophic lateral sclerosis) 05/02/2016 Orthostatic hypotension 12/18/2015 GERD (gastroesophageal reflux disease) 6 Irritable bowel syndrome with diarrhea 1 Attention deficit disorder without hyperactivity documented as of this encounter (statuses as of 11/27/2023) Resolved Problems Problem Noted Date Diagnosed Date [...] as of this encounter (statuses as of 11/27/2023) Immunizations Name Administration Dates Next Due COVID-19 mRNA, LNP-s, No Pre serve, 2-Dose Series (Moderna) 02/01/2021,12/28/2020 COVID-19 mRNA, LNP-s, No Pre serve, 2-Dose Series (Pfizer) 09/01/2021 Pneumococcal Polysaccharide PPV23 (Pneumovax) 12/26/2016 Season Influenza, Cell Cultu re, 18+ Yrs, With Preserv (Flucelvax) 07/25/2013 Seasonal Influenza Virus Vac cine, Unspecified Formulation 07/26/2022,07/09/2021,09/19/2019,07/05,08/11/2016,07/24/2014,07/05/2012 ,06/25/2011,06/11/2010,05/26/2009 Seasonal Influenza, PF, 6 M & above, IM , (FluLaval or Fluzone) 06/16/2023,07/26/2022,07/09/2021,09/19,07/05/2018 Seasonal Influenza, Quadriva lent, No Preserve, IM 08/11/2016 Seasonal Influenza, Split, I IV3, With Preserve, Inj 07/24/2014,07/05/2012,06/25/2011,06/11,05/26/2009 TDAP (age 10 and older)(Boostrix) 09/27/2018 TDAP [...] as of this encounter Progress Notes * Keith Cross MD - 11/27/2023 11:46 AM EDT Patient location: HOME. I was in a hospital or clinic location. After connecting through televideo,patient was verified with two unique identifiers. Patient (or authorized legal enrollment representative) was then informed that this was a Telemedicine visit and being conducted confidentially over secure lines. Methods to assure confidentiality were taken. Patient acknowledged consent and understanding of pr ivacy and security of the Telemedicine visit. The patient agreed to participate. SUBJECTIVE: Alberto Moffett is a 48 year old male. No chief complaint on file. HPI: Video hospital f/u for PSBO felt to be multifactorial and related to ALS and medication/dehydration. He was treated conservatively and discharged in stable condition. He has not moved his bowel since he completed his antibiotics, however he is not distended and has no pain. He has been eating small meals with yogurt, etc. No fevers/chills. Patient Active Problem List Diagnosis Code Irritable bowel syndrome with diarrhea K58.0 Attention deficit disorder without hyperactivity F98.8 GERD (gastroesophageal reflux disease) K21.9 Orthostatic hypotension I95.1 ALS (amyotrophic lateral sclerosis) ([facility]) G12.21 Personal history of DVT (deep vein thrombosis) Z86.718 History of pulmonary embolism Z86.711 Depression with anxiety F41.8 Current Outpatient Medications Medication Sig Dispense Refill Bisacodyl 10 MG Rectal Suppository (Dulcolax) Administer 1 Suppository into the rectum daily as needed for Constipation. Do not use for more than 1 week. 20 Suppository 1 escitalopram (LEXAPRO) 10 MG Tablet Take 2 [...] every night at bedtime.) 90 Tablet 1 Dicyclomine HCl 10 MG Oral Capsule (Bentyl) TAKE 1 CAPSULE BY MOUTH FOUR TIMES DAILY NEEDED NEEDED FOR DIARRHEA AND ABDOMINAL PAIN 120 Capsule 5 Zlgmxwin-Jettmfhij-SF 3.5-67111-5 Otic Solution Administer 4 Drops into ears in the morning and 4 Drops at noon and 4 Drops before bedtime. To affected ear, for 10 days.. 10 mL 1 Ondansetron HCl 4 MG Oral Tablet Take 1 Tablet by mouth every 6 hours as needed for Nausea. 30 Tablet 0 polyethylene glycol 3350 119 gram OR POWD Take 119 g by mouth once. Gabapentin 300 MG Oral Capsule (Neurontin) Take 1 Capsule by mouth in the morning and 1 Capsule at noon and 1 Capsule before bedtime. 90 Capsule 5 Hyoscyamine Sulfate ER 0.375 MG Oral Tablet Extended Release 12 Hour (Levbid) TAKE 1 TABLET BY MOUTH 2 TIMES A DAY NEEDED FOR CRAMPING OR ABDOMINAL PAIN. DO NOT CUT, CRUSH, OR CHEW 60 Tablet 2 Omeprazole 20 MG Oral Capsule Delayed Release (PriLOSEC) TAKE 1 CAPSULE BY MOUTH EVERY MORNING 90 Capsule 1 Vitamin D (Ergocalciferol) 90958 UNIT Oral Capsule Take 1 Capsule by mouth once a week. 12 Capsule 0 Apixaban 5 MG Oral Tablet (Eliquis) TAKE 1 TABLET BY MOUTH TWO TIMES DAILY 180 Tablet 0 Scopolamine 1 MG/3DAYS Transdermal Patch 72 Hour (Transderm Scop) Place 1 Patch over 72 hours topically on the skin every 3 days. 10 Patch 12 LORazepam 1 MG Oral Tablet (Ativan) Take 1 Tablet by mouth every 6 hours as needed for Anxiety. No current facility-administered medications for this visit. Allergy: Review of patient's allergies indicates: Allergen Reactions Ultram [Tramadol Hcl] Gi upset OBJECTIVE: There were no vitals taken for this visit. Gen: nad ASSESSMENT AND PLAN: (Z09) Hospital discharge follow-up (primary encounter diagnosis) Plan: continue current chronic medications (K56.600) Partial small bowel obstruction (HCC) Plan: okay to use bisacodyl suppository followed by saline enema if needed (G12.21) ALS (amyotrophic lateral sclerosis) (HCC) Plan: management per ALS clinic [facility] (Z86.718) Personal history of DVT (deep vein thrombosis) Plan: continue eliquis (Z86.711) History of pulmonary embolism Plan: continue eliquis (K21.9) Gastroesophageal reflux disease without esophagitis Plan: stable Follow up as needed. No other complaints were offered at this time. Keith Cross MD documented in this encounter Plan of Treatment Upcoming Encounters Date Type Department Care Team (Late st Contact Info) Description 06/17/2024 9:00 AM EDT Office Visit Family [facility] [address] [place] [address] Keith Cross MD [address] [place] [address] Health Maintenance Due Date Last Done Comments Hepatitis B (1 of 3 - 19+ 3-dose series) 1994 Lipid Panel 11/07/2017 11/07/2012 Cologuard 2020 Colonoscopy 2020 Colorectal Cancer Screening 2020 Fecal Occult Blood Test 2020 Sigmoidoscopy 2020 Depression Screening 02/25/2021 02/26/2020 COVID-19 Vaccine (4 - 2022- season) 2023 09/01/2021, 02/01/2021, 12/28/2020 DTaP,Tdap,and Td Vaccines (3 - [...] this encounter Medical Devices Implanted Type Area Die Technician Device Identifier Shelf Expiration Date Model / Serial / Lot Graft Bone Cartilage Costl 6cm - [id number] Implanted:Qty: 1 on 06/22/2016 by Any Tovar MD at [facility] N/A: Nose [employer] 04/16/2021 [id number] / / documented as of this encounter Visit Diagnoses Diagnosis Hospital discharge follow-up- Primary Other follow-up examination Partial small bowel obstruction (HCC) Unspecified intestinal obstruction ALS (amyotrophic lateral sclerosis) (HCC) Amyotrophic lateral sclerosis Personal history of DVT (deep vein thrombosis) Personal history of venous thrombosis and embolism History of pulmonary embolism Personal history of pulmonary embolism Gastroesophageal reflux disease without esophagitis Esophageal reflux documented in this encounter Advance Directives Latest Code Status on File Code Status Date Activated Date Inactivated Comments Full Code 07/24/2015 7:58 AM 07/24/2015 3:54 PM Thi s order reflects the patients wishes and were consensually agreed upon. Care Teams Director Of Physical Therapy Relationship Specialty Start Date End Date Keith Cross MD [address] [place] [address] PCP - General Family Medicine 03/23/21 documented as of this encounter
--- OUTSIDE RECORDS SUMMARY | 2024-02-05 20:33 | External Medical Summary | Summary of Care ---
Author Name Unknown Organization [facility] Address [address] [place] [address] Phone [phone] Care Team Providers Care Wooden Furniture Polisher Name Role Phone Keith Cross MD Primary Care Provider [phone] Reason for Visit * Reason Onset Date Comments Medication Update 11/14/2023 Encounter Details Date Type Department Care Team (Late st Contact Info) Description 11/14/2023 Telephone Family Practice [facility] [address] [facility] [place] [address] Keith Cross MD [address] [facility] [place] [address] Medication Update Allergies Active Allergy Reactions Criticality Noted Date Comments Tramadol Hcl 12/08/2011 Gi upset documented as of this encounter (statuses as of 11/15/2023) Medications Medication Sig Dispensed Refills Start Date End Date Status escitalopram (LEXAPRO) 10 MG Tablet Take 2 Tablets by mouth in the morning. 0 04/28/2016 Active Amphetamine-Dextro amphetamine 30 MG Tablet Take 20 mg by [...] 120 Capsule 5 06/19/2023 Active Neomycin-Polymyxin -HC 3.5-78137-3 Otic Solution Administer 4 Drops into ears [...] (PriLOSEC)Indicati ons:Gastroesophage al reflux disease without esophagitis TAKE 1 CAPSULE BY MOUTH EVERY MORNING 90 Capsule 1 09/14/2023 Active Vitamin D (Ergocalciferol) 37480 UNIT Oral Capsule Take 1 Capsule by mouth once a week. 12 Capsule 0 10/06/2023 Active Apixaban 5 MG Oral Tablet (Eliquis) TAKE 1 TABLET BY MOUTH TWO TIMES DAILY 180 Tablet 0 11/01/2023 Active Scopolamine 1 MG/3DAYS Transdermal Patch 72 Hour (Transderm Scop) Place 1 Patch over 72 hours topically on the skin every 3 days. 10 Patch 12 11/14/2023 Active documented as of this encounter (statuses as of 11/15/2023) Active Problems Problem Noted Date Diagnosed Date Depression with anxiety 06/16/2023 Personal history of DVT (deep vein thrombosis) 0 04/09/2021 History of pulmonary embolism 04/09/2021 ALS (amyotrophic lateral sclerosis) 05/02/2016 Orthostatic hypotension 12/18/2015 GERD (gastroesophageal reflux disease) 6 Irritable bowel syndrome with diarrhea 1 Attention deficit disorder without hyperactivity documented as of this encounter (statuses as of 11/15/2023) Resolved Problems Problem Noted Date Diagnosed Date [...] as of this encounter (statuses as of 11/15/2023) Immunizations Name Administration Dates Next Due COVID-19 [...] encounter Miscellaneous Notes * Telephone Encounter - Alma Rosa Boyd LPN - 11/15/2023 8:32 AM EST Left message for pt to call back. * Telephone Encounter - Keith Cross MD - 11/14/2023 6:08 PM EST Call patient and let him/Nellie know that I sent the patches they requested to the pharmacy documented in this encounter Plan of Treatment Upcoming Encounters Date Type Department Care Team (Late st Contact Info) Description 06/17/2024 9:00 AM EDT Office Visit Family Practice [facility] [address] [place] [address] Keith Cross MD [address] [place] [address] Health Maintenance Due Date Last Done Comments [...] this encounter Medical Devices Implanted Type Area Couples Therapist Device Identifier Shelf Expiration Date Model / Serial / Lot Graft Bone Cartilage Costl 6cm - [id number] Implanted:Qty: 1 on 06/22/2016 by Any Tovar MD at [place] [facility] N/A: Nose [employer] 04/16/2021 [id number] / / documented as of this encounter Advance Directives Latest Code Status on File Code Status Date Activated Date Inactivated Comments Full Code 07/24/2015 7:58 AM 07/24/2015 3:54 PM Thi s order reflects the patients wishes and were consensually agreed upon. Care Teams Wooden Furniture Polisher Relationship Specialty Start Date End Date Keith Cross MD [address] [place] [address] PCP - General Family Medicine 03/23/21 documented as of this encounter
--- OUTSIDE RECORDS SUMMARY | 2024-02-05 20:33 | External Medical Summary | Summary of Care ---
Author Name Unknown Organization [facility] Address [address] [place] [address] Phone [phone] Care Team Providers Care Interior Design Principal Name Role Phone Jaclyn Gamboa MD Primary Care Provider [phone] Reason for Visit * Reason Comments eRx-Medication Refill Encounter Details Date Type Department Care Team (Late st Contact Info) Description 11/01/2023 Refill Family Practice [facility] [address] [place] [address] Jaclyn Gamboa MD [address] [place] [address] Allergies Active Allergy Reactions Criticality Noted Date Comments Tramadol Hcl 12/08/2011 Gi upset documented as of this encounter (statuses as of 11/21/2023) Medications Medication Sig Dispensed Refills Start Date [...] 120 Capsule 5 06/19/2023 Active Neomycin-Polymyx in-HC 3.5-14075-5 Otic Solution Administer 4 Drops into ears [...] Capsule 1 09/14/2023 Active Vitamin D (Ergocalciferol) 61742 UNIT Oral Capsule Take 1 Capsule by [...] as of this encounter (statuses as of 11/21/2023) Active Problems Problem Noted Date Diagnosed Date Depression with anxiety 06/16/2023 Personal history of DVT (deep vein thrombosis) 0 04/09/2021 History of pulmonary embolism 04/09/2021 ALS (amyotrophic lateral sclerosis) 05/02/2016 Orthostatic hypotension 12/18/2015 GERD (gastroesophageal reflux disease) 6 Irritable bowel syndrome with diarrhea 1 Attention deficit disorder without hyperactivity documented as of this encounter (statuses as of 11/21/2023) Resolved Problems Problem Noted Date Diagnosed Date [...] medical exam 11/07/2012 020 Overview: Sees Dr Rivera--[place] Screening for cardiovascular condition 11/07/2012 05/22/2015 Nausea [...] as of this encounter (statuses as of 11/21/2023) Immunizations Name Administration Dates Next Due COVID-19 [...] GAMBOA * Telephone Encounter - Jose Manzanares [facility] - 11/01/2023 3:05 PM ESTPending Prescriptions: Disp Refills Eliquis 5 MG Oral Tablet [Pharmacy Med Nam*180 Ta*0 Sig: TAKE 1 TABLET BY MOUTH TWO TIMES DAILY * Telephone Encounter - Jose Manzanares [facility] - 11/01/2023 3:04 PM EST Unable to authorize medication refills at this time. Patient did not meet protocol requirements. Patient needs current labs. Please approve if appropriate. Thanks, Jose Manzanares, Yannick.Ph. Clinical Pharmacist [facility] [phone] [id number] 11/01/2023,3:04 PM Pending Prescriptions: Disp Refills Eliquis [...] the medication was ordered: 08-07-23 Pharmacy: [facility] [id number] [place] Is this request for a controlled [...] Contact Info) Description 11/27/2023 11:00 AM EDT Office Visit Family Practice [facility] [address] [place] [address] Jaclyn Gamboa MD [address] [place] [address] 06/17/2024 9:00 AM EDT Office Visit Family Practice [facility] [address] [place] [address] Jaclyn Gamboa MD [address] [place] [address] Health Maintenance Due Date Last Done Comments Hepatitis B (1 of 3 - 19+ 3-dose series) 1994 Lipid Panel 11/07/2017 11/07/2012 Cologuard 2020 Colonoscopy 2020 Colorectal Cancer Screening 2020 Fecal Occult Blood Test 2020 Sigmoidoscopy 2020 Depression Screening 02/25/2021 02/26/2020 COVID-19 Vaccine (2022- season) 2023 09/01/2021, 02/01/2021, 12/28/2020 DTaP,Tdap,and Td [...] this encounter Medical Devices Implanted Type Area Mold Stamper And Repairer Device Identifier Shelf Expiration Date Model / Serial / Lot Graft Bone Cartilage Costl 6cm - [id number] Implanted:Qty: 1 on 06/22/2016 by Any Tovar MD at [place] [facility] N/A: Nose [employer] 04/16/2021 [id number] / / documented as of this encounter Advance Directives Latest Code Status on File Code Status Date Activated Date Inactivated Comments Full Code 07/24/2015 7:58 AM 07/24/2015 3:54 PM Thi s order reflects the patients wishes and were consensually agreed upon. Care Teams Interior Design Principal Relationship Specialty Start Date End Date Jaclyn Gamboa MD [address] [place] [address] PCP - General Family Medicine 03/23/21 documented as of this encounter
--- OUTSIDE RECORDS SUMMARY | 2024-02-05 20:33 | External Medical Summary | Summary of Care ---
Author Name Unknown Organization [facility] Address [address] [place] [address] Phone [phone] Care Team Providers Care Painting And Coating Worker Name Role Phone Keith Cross MD Primary Care Provider [phone] Reason for Visit * Reason Onset Date Comments Advice 11/29/2023 Encounter Details Date Type Department Care Team (Late st Contact Info) Description 11/29/2023 Telephone Family Practice [facility] [address] [place] [address] Keith Cross MD [address] [facility] [place] [address] Advice Allergies Active Allergy Reactions Criticality Noted Date Comments Tramadol Hcl 12/08/2011 Gi upset documented as of this encounter (statuses as of 11/29/2023) Medications Medication Sig Dispensed Refills Start Date [...] 120 Capsule 5 06/19/2023 Active Neomycin-Polymyxi n-HC 3.5-38460-2 Otic Solution Administer 4 Drops into ears [...] Capsule 1 09/14/2023 Active Vitamin D (Ergocalciferol) 61394 UNIT Oral Capsule Take 1 Capsule by [...] as of this encounter (statuses as of 11/29/2023) Active Problems Problem Noted Date Diagnosed Date Depression with anxiety 06/16/2023 Personal history of DVT (deep vein thrombosis) 0 04/09/2021 History of pulmonary embolism 04/09/2021 ALS (amyotrophic lateral sclerosis) 05/02/2016 Orthostatic hypotension 12/18/2015 GERD (gastroesophageal reflux disease) 6 Irritable bowel syndrome with diarrhea 1 Attention deficit disorder without hyperactivity documented as of this encounter (statuses as of 11/29/2023) Resolved Problems Problem Noted Date Diagnosed Date [...] as of this encounter (statuses as of 11/29/2023) Immunizations Name Administration Dates Next Due COVID-19 [...] the money to buy more. Never true 11/27/19 24 Within the past 12 months, t he food you bought just didn't last and you didn't have money to get more. Never true 11/27/2023 Sex and Gender Information Value Date Recorded Sex Assigned at Male 01/03/2019 10:21 AM EDT Gender Identity Male 01/03/2019 10:21 AM EDT Sexual Orientation Straight 01/03/2019 10 :21 AM EDT Job Start Date Occupation Industry Not on file Not on file Not on file documented as of this encounter Miscellaneous Notes * Telephone Encounter - Celeste Kaplan LPN - 11/29/2023 2:01 PM EDT Spoke with Jeannine, She wanted to discuss patient's allergies. They did not have any listed in their system. Advised Tramadol is listed with GI upset. No further questions. * Telephone Encounter - Mindy Hurtado OSA - 11/29/2023 1:58 PM EDT Reason for patient's call: Jeannine: [facility] Home Health to discuss patient Allergy List. Caller was transferred to Celeste at the nurse line. documented in this encounter Plan of Treatment Upcoming Encounters Date Type Department Care Team (Late st Contact Info) Description 06/17/2024 9:00 AM EDT Office Visit Family Practice [facility] [address] [place] [address] Keith Cross MD [address] [place] [address] Health Maintenance Due Date Last Done Comments Hepatitis B (1 of 3 - 19+ 3-dose series) 1994 Lipid Panel 11/07/2017 11/07/2012 Cologuard 2020 Colonoscopy 2020 Colorectal Cancer Screening 2020 Fecal Occult Blood Test 2020 Sigmoidoscopy 2020 Depression Screening 02/25/2021 02/26/2020 COVID-19 Vaccine ( season) 2023 09/01/2021, 02/01/2021, 12/28/2020 DTaP,Tdap,and Td [...] this encounter Medical Devices Implanted Type Area Logging Rafter Laborer Device Identifier Shelf Expiration Date Model / Serial / Lot Graft Bone Cartilage Costl 6cm - [id number] Implanted:Qty: 1 on 06/22/2016 [place] [facility] [place]: Nose [employer] 04/16/2021 [id number] / / documented as of this encounter Advance Directives Latest Code Status on File Code Status Date Activated Date Inactivated Comments Full Code 07/24/2015 7:58 AM 07/24/2015 3:54 PM Thi s order reflects the patients wishes and were consensually agreed upon. Care Teams Painting And Coating Worker Relationship Specialty Start Date End Date Keith Cross MD [address] [place] [address] PCP - General Family Medicine 03/23/21 documented as of this encounter
--- OUTSIDE RECORDS SUMMARY | 2024-02-05 20:33 | External Medical Summary | Summary of Care ---
Author Name Unknown Organization [facility] Address [address] [place] [address] Phone [phone] Care Team Providers Care Sandwich Wrapper Name Role Phone Keith Cross MD Primary Care Provider [phone] [phone] Reason for Visit * Reason Onset Date Comments Medication Refill 09/05/2023 Encounter Details Date Type Department Care Team (Late st Contact Info) Description 09/05/2023 Refill Family Practice [facility] [address] [place] [address] Keith Cross MD [address] [place] [address] Allergies Active Allergy Reactions Criticality Noted Date Comments Tramadol Hcl 12/08/2011 Gi upset documented as of this encounter (statuses as of 11/17/2023) Medications Medication Sig Dispensed Refills Start Date [...] at bedtime. 30 Tab 5 0 Active clonazePAM 0.5 MG Oral Tablet (KlonoPIN) Take 1 Tablet (0.5 mg) by mouth every night at bedtime. 90 Tablet 1 2 Active Additional Information Patient taking differently: 0.25 mgOral QHS, Reported on 08/23/2023 Dicyclomine HCl 10 MG Oral Capsule (Bentyl) TAKE 1 CAPSULE BY MOUTH FOUR TIMES DAILY NEEDED NEEDED FOR DIARRHEA AND ABDOMINAL PAIN 120 Capsule 5 3 Active Neomycin-Polymyx in-HC 3.5-30060-3 Otic Solution Administer 4 Drops into ears in the morning and 4 Drops at noon and 4 Drops before bedtime. To affected ear, for 10 days.. 10 mL 1 3 Active Ondansetron HCl 4 MG Oral Tablet Take 1 Tablet by mouth every 6 hours as needed for Nausea. 30 Tablet 0 3 Active polyethylene glycol 3350 119 gram OR POWD Take 119 g by mouth once. 0 Active Gabapentin 300 MG Oral Capsule (Neurontin) Take 1 Capsule by mouth in the morning and 1 Capsule at noon and 1 Capsule before bedtime. 90 Capsule 5 3 Active Hyoscyamine Sulfate ER 0.375 MG Oral Tablet Extended Release 12 Hour (Levbid) TAKE 1 TABLET BY MOUTH 2 TIMES A DAY NEEDED FOR CRAMPING OR ABDOMINAL PAIN. DO NOT CUT, CRUSH, OR CHEW 60 Tablet 2 3 Active Omeprazole 20 MG Oral Capsule Delayed Release (PriLOSEC)Indica tions:Gastroesop hageal reflux disease without esophagitis 1 daily in the AM 90 Capsule 3 3 09/14/19 24 Discontinued Apixaban 5 MG Oral Tablet (Eliquis) TAKE 1 TABLET BY MOUTH TWO TIMES DAILY 180 Tablet 0 3 11/01/19 24 Discontinued Vitamin D (Ergocalciferol) 28210 UNIT Oral Capsule Take 1 Capsule by mouth once a week. 12 Capsule 0 3 10/05/19 24 Discontinued(Ref ill) documented as of this encounter (statuses as of 11/17/2023) Active Problems Problem Noted Date Diagnosed Date Depression with anxiety 06/16/2023 Personal history of DVT (deep vein thrombosis) 0 04/09/2021 History of pulmonary embolism 04/09/2021 ALS (amyotrophic lateral sclerosis) 05/02/2016 Orthostatic hypotension 12/18/2015 GERD (gastroesophageal reflux disease) 6 Irritable bowel syndrome with diarrhea 1 Attention deficit disorder without hyperactivity documented as of this encounter (statuses as of 11/17/2023) Resolved Problems Problem Noted Date Diagnosed Date [...] as of this encounter (statuses as of 11/17/2023) Immunizations Name Administration Dates Next Due COVID-19 [...] on file documented as of this encounter Plan of Treatment Upcoming Encounters Date Type Department Care Team (Late st Contact Info) Description 06/17/2024 9:00 AM EDT Office Visit [facility] [address] [place] [address] Keith Cross MD [address] [place] [address] Health Maintenance Due Date Last Done Comments [...] this encounter Medical Devices Implanted Type Area Building Dismantler Device Identifier Shelf Expiration Date Model / Serial / Lot Graft Bone Cartilage Costl 6cm - [id number] Implanted:Qty: 1 on 06/22/2016 by Any Tovar [place] [facility] [place] Nose [employer] 04/16/2021 [id number] / / documented as of this encounter Advance Directives Latest Code Status on File Code Status Date Activated Date Inactivated Comments Full Code 07/24/2015 7:58 AM 07/24/2015 3:54 PM Thi s order reflects the patients wishes and were consensually agreed upon. Care Teams Sandwich Wrapper Relationship Specialty Start Date End Date Keith Cross MD [address] [place] [address] PCP - General Family Medicine 03/23/21 documented as of this encounter
--- OUTSIDE RECORDS SUMMARY | 2024-02-05 20:33 | External Medical Summary | Continuity of Care Document ---
Author Name Unknown Organization [place] [address] [address] Address [address] [address] [place] [id number] Care Team Providers Care Firebrick Layer Name Role Phone Keith Cross Primary Care Physician [phone] [id number] Date(s): 01/24/24 - 01/24/[address] [place] [address] [facility] [place] [address], [address], Entrance [address] [place] [address] [phone] Discharge Disposition: Home or Self Care Attending Physician: MD Migdalia, Blanquita Higgins Referring Physician: MD Shawna, [place] Allergies, Adverse Reactions, Alerts Substance Criticality Severity Reaction Reaction Severity Status Ultram gi upset Active Immunizations Given and Recorded Vaccine Date Status Refusal Reason pneumococcal 23-valent vaccine 12/26/16 Given Medications Adderall Start: 07/21/16 9:46:00 AM EST, 20 mg =, PO, tid, Refills: 0 Start Date: 07/21/16 Status: Ordered albuterol-ipratropium 2.5 mg-0.5 mg/3 mL inhalation solution Start: 07/20/23 11:21:00 AM EST, 3 mL, inhaled, q6h, Disp# 180 mL, Refills: 3, PRN: as needed for shortness of breath or wheezing, Pharmacy: [id number] Start Date: 07/20/23 Stop Date: 07/14/24 Status: Ordered Benadryl Start: 04/17/23 12:28:00 PM EDT, 2 tabs, PO, Daily, unknown dose Start Date: 04/17/23 Status: Ordered clonazePAM 0.25 mg oral tablet, disintegrating Start: 07/19/23 12:23:00 PM EST, 1 tab, PO, qhs Start Date: 07/19/23 Status: Ordered dicyclomine 10 mg oral capsule TAKE 1 CAPSULE BY MOUTH FOUR TIMES DAILY NEEDED FOR DIARRHEA AND ABDOMINAL PAIN Start Date: 11/03/21 Status: Ordered Eliquis 5 mg oral tablet Start: 03/24/21 12:28:00 PM EDT, 1 tab, PO, bid Start Date: 03/24/21 Status: Ordered gabapentin Start: 05/30/22 11:39:00 AM EDT, See Instructions, 300mg qNoon, 600mg qHS Start Date: 05/30/22 Status: Ordered glycopyrrolate 1 mg oral tablet Start: 10/25/23 3:10:00 PM EST, 1 tab, PO, tid, Disp# 90 tab, Refills: 5, PRN: secretions, Pharmacy:[id number] Start Date: 10/25/23 Stop Date: 04/22/24 Status: Ordered guaiFENesin 400 mg oral tablet Start: 10/25/23 3:11:00 PM EST, 1 tab, PO, qid, Disp# 120 tab, Refills: 5, PRN: secretions, Pharmacy: [id number] Start Date: 10/25/23 Stop Date: 04/22/24 Status: Ordered hyoscyamine 0.375 mg oral tablet, extended release TAKE 1 TABLET BY MOUTH 2 TIMES A DAY NEEDED FOR CRAMPING OR ABDOMINAL PAIN. DO NOT CUT, CRUSH, OR CHEW Start Date: 07/19/23 Status: Ordered Lexapro Start: 05/31/17 12:30:00 PM EDT, 20 mg =, PO, Daily Start Date: 05/31/17 Status: Ordered LORazepam 1 mg oral tablet Start: 10/20/20 10:40:00 AM EST, See Instructions, Disp# 120 tab, Refills: 3, TAKE 1 TO 2 TABLETS BY MOUTH AT BEDTIME NEEDED FOR SLEEP AND 1 TABLET IN THE AFTERNOON. MAY TAKE 1 TABLET EVERY 6 HOURS NEEDED FOR ANXIETY, Pharmacy: [id number] Start Date: 10/20/20 Status: Ordered magnesium oxide 400 mg (241.3 mg elemental magnesium) oral tablet Start: 10/25/23 3:11:00 PM EST, 1 tab, PO, Daily, Disp# 30 tab, Refills: 5, Pharmacy: [id number] Start Date: 10/25/23 Stop Date: 04/22/24 Status: Ordered mirtazapine Start: 12/28/22 12:27:00 PM EDT, 15 mg =, PO, qhs Start Date: 12/28/22 Status: Ordered multivitamin Start: 11/03/21 12:26:00 PM EST, 1 tab, PO, Daily Start Date: 11/03/21 Status: Ordered omeprazole Start: 07/21/16 9:47:00 AM EST, 20 mg =, PO, Daily Start Date: 07/21/16 Status: Ordered pneumococcal vaccine (PPSV23) Start: 12/26/16 2:45:00 PM EDT, 0.5 mL, IM, ONCE, Disp# 0.5 mL, given to patient Start Date: 12/26/16 Status: Ordered Zofran 4 mg oral tablet Start: 07/15/19 12:29:00 PM EST, 1 tab, PO, bid, Disp# 60 tab, Refills: 1, PRN: as needed for nausea/vomiting, Pharmacy: [id number] Start Date: 07/15/19 Status: Ordered Problem List Condition Confirmation Course Effective Dates Status Health St atus Informant Amyotrophic lateral sclerosis Confirmed Active IBS (irritable bowel syndrome) Confirmed Active Muscle cramps Confirmed Active High risk medications (not anticoagulants) long-term use Confirmed Active Acid reflux Confirmed Active Tachycardia Confirmed Active Depression Confirmed Active Procedures Procedure Date Related Diagnosis Body Site [...] Member Role: Primary Care Provider Address: Address: [address] [place] [address] [place] Care Team Related Persons Name: ROLANDO PEMBERTON Address: home No Address Provided
--- OUTSIDE RECORDS SUMMARY | 2024-02-05 20:33 | External Medical Summary | Summary of Care ---
Author Name Unknown Organization [facility] Address [address] [place] [address] Phone [phone] Care Team Providers Care Retail Leasing Agent Name Role Phone Keith Cross MD Primary Care Provider [phone] Reason for Visit * Reason Onset Date Comments Hospital Follow-Up 11/21/2023 [facility] 11/19 Encounter Details Date Type Department Care Team (Late st Contact Info) Description 11/21/2023 Telephone Ancillary [facility] [address] [place] [address] Tianna Marinelli, RN Hospital Follow-Up ([facility] 11/19) Allergies Active Allergy Reactions Criticality Noted Date Comments Tramadol Hcl 12/08/2011 Gi upset documented as of this encounter (statuses as of 11/22/2023) Medications Medication Sig Dispensed Refills Start Date [...] 120 Capsule 5 06/19/2023 Active Neomycin-Polymyxi n-HC 3.5-12864-8 Otic Solution Administer 4 Drops into ears [...] Capsule 1 09/14/2023 Active Vitamin D (Ergocalciferol) 94244 UNIT Oral Capsule Take 1 Capsule by [...] as needed for Anxiety. 0 11/21/2023 Active Amoxicillin-Pot Clavulanate 875-125 MG Oral Tablet (Augmentin) Take 1 Tablet by mouth in the morning and 1 Tablet before bedtime. 0 11/20/2023 11/21/2023 documented as of this encounter (statuses as of 11/22/2023) Active Problems Problem Noted Date Diagnosed Date Depression with anxiety 06/16/2023 Personal history of DVT (deep vein thrombosis) 0 04/09/2021 History of pulmonary embolism 04/09/2021 ALS (amyotrophic lateral sclerosis) 05/02/2016 Orthostatic hypotension 12/18/2015 GERD (gastroesophageal reflux disease) 6 Irritable bowel syndrome with diarrhea 1 Attention deficit disorder without hyperactivity documented as of this encounter (statuses as of 11/22/2023) Resolved Problems Problem Noted Date Diagnosed Date [...] as of this encounter (statuses as of 11/22/2023) Immunizations Name Administration Dates Next Due COVID-19 [...] encounter Miscellaneous Notes * Telephone Encounter - Tianna Marinelli RN - 11/22/2023 11:35 AM EDT Transitions of Care Note Reason for Referral:Recent Admission Phone visit for follow up: MARI Admitted to: [facility], Date: 11/14 Discharged to: home, Date: 11/19 Diagnosis driving hospitalization: Small bowel obstruction Pneumonia with acute hypoxia Another message left for pt including date/time of follow up appt * Telephone Encounter - Tianna Marinelli RN - 11/21/2023 11:08 AM EDT Transitions of Care Note Reason for Referral:Recent Admission Phone visit for follow up: MARI Admitted to: [facility], Date: 11/14 Discharged to: home, Date: 11/19 Diagnosis driving hospitalization: Small bowel obstruction Pneumonia with acute hypoxia Message left for pt. If he reaches the call center he can be transferred to [place] at [phone]. Thank you. documented in this encounter Plan of Treatment Upcoming Encounters Date Type Department Care Team (Late st Contact Info) Description 11/27/2023 11:00 AM EDT Office Visit [facility] [address] [place] [address] Keith Cross MD [address] [place] [address] 06/17/2024 9:00 AM EDT Office Visit [facility] [address] [place] [address] Keith Cross MD [address] [place] [address] Health Maintenance Due Date Last Done Comments [...] this encounter Medical Devices Implanted Type Area Director Of Residential Services Device Identifier Shelf Expiration Date Model / Serial / Lot Graft Bone Cartilage Costl 6cm - [id number] Implanted:Qty: 1 on 06/22/2016 by Any Tovar MD [place] [facility] [place]: Nose [employer] 04/16/2021 [id number] / / documented as of this encounter Advance Directives Latest Code Status on File Code Status Date Activated Date Inactivated Comments Full Code 07/24/2015 7:58 AM 07/24/2015 3:54 PM Thi s order reflects the patients wishes and were consensually agreed upon. Care Teams Retail Leasing Agent Relationship Specialty Start Date End Date Keith Cross MD [address] [facility] [place] [address] PCP - General Family Medicine 03/23/21 documented as of this encounter
--- OUTSIDE RECORDS SUMMARY | 2024-02-05 20:33 | External Medical Summary | Summary of Care ---
Author Name Unknown Organization [facility] Address [address] [place] [address] Phone [phone] Care Team Providers Care Linux System Admin Name Role Phone Jaclyn Gamboa MD Primary Care Provider [phone] [phone] Reason for Visit * Reason Onset Date Comments Medication Refill 12/26/2023 Encounter Details Date Type Department Care Team (Late st Contact Info) Description 12/26/2023 Refill Family Practice [facility] [address] [facility] [place] [id number] Jaclyn Gamboa MD [address] [facility] [place] [address] Allergies Active Allergy Reactions Criticality Noted Date Comments Tramadol Hcl 12/08/2011 Gi upset documented as of this encounter (statuses as of 12/26/2023) Medications Medication Sig Dispensed Refills Start Date [...] 120 Capsule 5 06/19/2023 Active Neomycin-Polymyx in-HC 3.5-11809-1 Otic Solution Administer 4 Drops into ears [...] EVERY MORNING 90 Capsule 1 09/14/2023 Active Apixaban 5 MG Oral Tablet (Eliquis) [...] 1 week. 20 Suppository 1 11/27/2023 Active diazePAM 2 MG Oral Tablet (Valium)Indicati ons:Benign paroxysmal 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 30 Tablet 0 12/12/2023 Active Vitamin D (Ergocalciferol) 85649 UNIT Oral Capsule Take 1 Capsule by mouth once a week. 12 Capsule 0 12/26/2023 Active Vitamin D (Ergocalciferol) 74427 UNIT Oral Capsule Take 1 Capsule by mouth once a week. 12 Capsule 0 10/06/2023 4 Discontinu ed(Refill) documented as of this encounter (statuses as of 12/26/2023) Active Problems Problem Noted Date Diagnosed Date Depression with anxiety 06/16/2023 Personal history of DVT (deep vein thrombosis) 0 04/09/2021 History of pulmonary embolism 04/09/2021 ALS (amyotrophic lateral sclerosis) 05/02/2016 Orthostatic hypotension 12/18/2015 GERD (gastroesophageal reflux disease) 6 Irritable bowel syndrome with diarrhea 1 Attention deficit disorder without hyperactivity documented as of this encounter (statuses as of 12/26/2023) Resolved Problems Problem Noted Date Diagnosed Date [...] as of this encounter (statuses as of 12/26/2023) Immunizations Name Administration Dates Next Due COVID-19 [...] Telephone Encounter - Jaclyn Gamboa MD - 12/26/2023 7:09 PM EDTSigned Prescriptions: Disp Refills Vitamin D (Ergocalciferol) 72547 UNIT Oral*12 Cap*0 Sig: Take 1 Capsule by mouth once a week. Authorizing Provider: JACLYN GAMBOA * Telephone Encounter - Radha Silva LPN - 12/26/2023 12:38 PM EDTPending Prescriptions: Disp Refills Vitamin D (Ergocalciferol) 54097 UNIT Oral*12 Cap*0 Sig: Take 1 Capsule by mouth once a week. * Telephone Encounter - Marylou Guzman OSA - 12/26/2023 12:25 PM EDT Did you pend patient's preferred pharmacy and medication before forwarding?no Pharmacy: [id number] [place] Pending Prescriptions: Disp Refills Vitamin D (Ergocalciferol) 96925 UNIT Ora*12 Cap*0 Sig: Take 1 Capsule by mouth once a week. Last Visit: 08/23/2023 (in office), 11/27/2023 (telemedicine) Next Visit: 06/17/2024 If no future appointments scheduled, and last appointment is greater than a year ago, please schedule patient for a follow-up appointment Last date the medication was ordered: 10.06.22 Is this request for a controlled substance?No [...] 06/17/2024 9:00 AM EDT Office Visit Family [facility] [address] [place] [address] Jaclyn Gamboa MD [address] [place] [address] Health Maintenance Due Date Last Done Comments Hepatitis B (1 of 3 - 19+ 3-dose series) 1994 Lipid Panel 11/07/2017 11/07/2012 Cologuard 2020 Colonoscopy 2020 Colorectal Cancer Screening 2020 Fecal Occult Blood Test 2020 Sigmoidoscopy 2020 COVID-19 Vaccine ( season) 2023 09/01/2021, 02/01/2021, [...] this encounter Medical Devices Implanted Type Area Lithoduplicator Operator Device Identifier Shelf Expiration Date Model / Serial / Lot Graft Bone Cartilage Costl 6cm - [id number] Implanted:Qty: 1 on 06/22/2016 [place] [facility] [place] Nose [employer] 04/16/2021 [id number] / / documented as of this encounter Advance Directives Latest Code Status on File Code Status Date Activated Date Inactivated Comments Full Code 07/24/2015 7:58 AM 07/24/2015 3:54 PM Thi s order reflects the patients wishes and were consensually agreed upon. Care Teams Linux System Admin Relationship Specialty Start Date End Date Jaclyn Gamboa MD [address] [place] [address] PCP - General Family Medicine 03/23/21 documented as of this encounter
--- OUTSIDE RECORDS SUMMARY | 2024-02-05 20:33 | External Medical Summary | Summary of Care ---
Author Name Unknown Organization [facility] Address [address] [place] [address] Phone [phone] Care Team Providers Care Front Desk Officer Name Role Phone Jaclyn Gamboa MD Primary Care Provider [phone] Reason for Visit * Reason Comments eRx-Medication Refill Encounter Details Date Type Department Care Team (Late st Contact Info) Description 01/24/2024 Refill Family Practice [facility] [address] [place] [address] Jaclyn Gamboa MD [address] [place] [address] Allergies Active Allergy Reactions Criticality Noted Date Comments Tramadol Hcl 12/08/2011 Gi upset documented as of this encounter (statuses as of 01/25/2024) Medications Medication Sig Dispensed Refills Start Date [...] 120 Capsule 5 3 Active Neomycin-Polymyx in-HC 3.5-05188-2 Otic Solution Administer 4 Drops into ears [...] BY MOUTH EVERY MORNING 90 Capsule 1 4 Active Scopolamine 1 MG/3DAYS Transdermal Patch 72 Hour (Transderm Scop) Place 1 Patch over 72 hours topically on the skin every 3 days. 10 Patch 12 4 Active LORazepam 1 MG Oral Tablet (Ativan) Take 1 Tablet by mouth every 6 hours as needed for Anxiety. 0 4 Active Bisacodyl 10 MG Rectal Suppository (Dulcolax) Administer 1 Suppository into the rectum daily as needed for Constipation. Do not use for more than 1 week. 20 Suppository 1 4 Active diazePAM 2 MG Oral Tablet (Valium)Indicati ons:Benign paroxysmal 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 30 Tablet 0 4 Active Vitamin D (Ergocalciferol) 20126 UNIT Oral Capsule Take 1 Capsule by mouth once a week. 12 Capsule 0 4 Active Apixaban 5 MG Oral Tablet (Eliquis) TAKE 1 TABLET BY MOUTH TWO TIMES DAILY 180 Tablet 0 4 Active Apixaban 5 MG Oral Tablet (Eliquis) TAKE 1 TABLET BY MOUTH TWO TIMES DAILY 180 Tablet 0 4 01/25/20 24 Discontinued documented as of this encounter (statuses as of 01/25/2024) Active Problems Problem Noted Date Diagnosed Date Depression with anxiety 06/16/2023 Personal history of DVT (deep vein thrombosis) 0 04/09/2021 History of pulmonary embolism 04/09/2021 ALS (amyotrophic lateral sclerosis) 05/02/2016 Orthostatic hypotension 12/18/2015 GERD (gastroesophageal reflux disease) 6 Irritable bowel syndrome with diarrhea 1 Attention deficit disorder without hyperactivity documented as of this encounter (statuses as of 01/25/2024) Resolved Problems Problem Noted Date Diagnosed Date [...] as of this encounter (statuses as of 01/25/2024) Immunizations Name Administration Dates Next Due COVID-19 [...] Telephone Encounter - Jaclyn Gamboa MD - 01/25/2024 12:02 PM EDTSigned Prescriptions: Disp Refills Apixaban 5 MG Oral Tablet (Eliquis) 180 Ta*0 Sig: TAKE 1 TABLET BY MOUTH TWO TIMES DAILY Authorizing Provider: JACLYN GAMBOA * Telephone Encounter - Ceci Rider [facility] - 01/25/2024 7:58 AM EDTPending Prescriptions: Disp Refills Eliquis 5 MG Oral Tablet [Pharmacy Med Nam*180 Ta*0 Sig: TAKE 1 TABLET BY MOUTH TWO TIMES DAILY * Telephone Encounter - Ceci Rider [facility] - 01/25/2024 7:58 AM EDT Unable to authorize medication refills at this time. Part of the criteria used for refill authorization was not satisfied. Patient needs current labs. Please approve if appropriate. Pending Prescriptions: Disp Refills Apixaban 5 MG Oral Tablet (Eliquis) [Phar*180 Ta*0 Sig: TAKE 1 TABLET BY MOUTH TWO TIMES DAILY Last Visit: 08/23/2023 (in office), 11/27/2023 (telemedicine) Next Visit: 06/17/2024 If no future appointments scheduled, and last appointment is greater than a year ago, please schedule patient for a follow-up appointment Last date the medication was ordered: 11/01/23 Pharmacy: [id number]- [place] Is this request for a controlled substance? No Urine Drug Screen:No results found for this or any previous visit. Patient Phone Numbers Labs: Lab Results Component Value Date/Time CREAT 0.61 02/20/2020 12:00 AM CREAT 0.8 09/17/2019 03:35 PM POTASSIUM 3.9 02/20/2020 12:00 AM POTASSIUM 4.2 09/17/2019 03:35 PM TSH 0.83 09/17/2019 03:35 PM LDLCALC 104 11/07/2012 09:32 AM LDLDIRECT NOT APPLICABLE 11/07/2012 09:32 AM ALT 47 09/17/2019 03:35 PM Ceci Richardson Clinical Pharmacist [facility] ([facility]) (Formerly Telepharmacy) [phone] 01/25/2024, 7:58 AM documented in this encounter Plan of Treatment Upcoming Encounters Date Type Department Care Team (Late st Contact Info) Description 04/02/2024 2:00 PM EDT Office Visit [facility] [address] [place] [address] Tushar Obando, DPT [address] [place] [address] 06/17/2024 9:00 AM EDT Office Visit Family Practice [facility] [address] [place] [address] Jaclyn Gamboa MD [address] [place] [address] Health Maintenance Due Date Last Done Comments Hepatitis B (1 of 3 - 19+ 3-dose series) 1994 Lipid Panel 11/07/2017 11/07/2012 Cologuard 2020 Colonoscopy 2020 Colorectal Cancer Screening 2020 Fecal Occult Blood Test 2020 Sigmoidoscopy 2020 COVID-19 Vaccine (2022- season) 2023 09/01/2021, 02/01/2021, [...] Medical Devices Implanted Type Area Director Of Manufacturing Device Identifier Shelf Expiration Date Model / Serial / Lot Graft Bone Cartilage Costl 6cm - [id number] Implanted:Qty: 1 on 06/22/2016 by Any Tovar MD [place] [facility] [place] Nose [employer] 04/16/2021 [id number] / / documented as of this encounter Advance Directives Latest Code Status on File Code Status Date Activated Date Inactivated Comments Full Code 07/24/2015 7:58 AM 07/24/2015 3:54 PM Thi s order reflects the patients wishes and were consensually agreed upon. Care Teams Front Desk Officer Relationship Specialty Start Date End Date Jaclyn Gamboa MD [address] [facility] [place] [address] PCP - General Family Medicine 03/23/21 documented as of this encounter
--- OUTSIDE RECORDS SUMMARY | 2024-02-05 20:33 | External Medical Summary | Summary of Care ---
Author Name Unknown Organization [facility] Address [address] [place] [address] Phone [phone] Care Team Providers Care International Marketing Executive Name Role Phone Keith Cross MD Primary Care Provider [phone] Reason for Visit * Reason Onset Date Comments FYI 11/22/2023 Encounter Details Date Type Department Care Team (Late st Contact Info) Description 11/22/2023 Telephone Family Practice [facility] [address] [employer] [facility] [place] [address] Keith Cross MD [address] [employer] [facility] [address] FYI Allergies Active Allergy Reactions Criticality Noted Date Comments Tramadol Hcl 12/08/2011 Gi upset documented as of this encounter (statuses as of 11/24/2023) Medications Medication Sig Dispensed Refills Start Date [...] 120 Capsule 5 06/19/2023 Active Neomycin-Polymyxin -HC 3.5-46364-7 Otic Solution Administer 4 Drops into ears [...] Capsule 1 09/14/2023 Active Vitamin D (Ergocalciferol) 39648 UNIT Oral Capsule Take 1 Capsule by [...] as needed for Anxiety. 0 11/21/2023 Active documented as of this encounter (statuses as of 11/24/2023) Active Problems Problem Noted Date Diagnosed Date Depression with anxiety 06/16/2023 Personal history of DVT (deep vein thrombosis) 0 04/09/2021 History of pulmonary embolism 04/09/2021 ALS (amyotrophic lateral sclerosis) 05/02/2016 Orthostatic hypotension 12/18/2015 GERD (gastroesophageal reflux disease) 6 Irritable bowel syndrome with diarrhea 1 Attention deficit disorder without hyperactivity documented as of this encounter (statuses as of 11/24/2023) Resolved Problems Problem Noted Date Diagnosed Date [...] as of this encounter (statuses as of 11/24/2023) Immunizations Name Administration Dates Next Due COVID-19 [...] encounter Miscellaneous Notes * Telephone Encounter - Gladys Robledo LPN - 11/24/2023 12:23 PM EDT noted * Telephone Encounter - Kacey Wheatley OSA - 11/22/2023 4:25 PM EDT Irving from [facility] occupational therapy called to say he will be seeing Pt. 11/26 per the Pt request. documented in this encounter Plan of Treatment Upcoming Encounters Date Type Department Care Team (Late st Contact Info) Description 11/27/2023 11:00 AM EDT Telemedicine [facility] [address] [place] [address] Keith Cross MD [address] [place] [address] 06/17/2024 9:00 AM EDT Office Visit Family [facility] [address] [place] [address] Keith Cross MD [address] [place] [address] Health Maintenance Due Date Last Done Comments [...] this encounter Medical Devices Implanted Type Area Sports Coordinator Device Identifier Shelf Expiration Date Model / Serial / Lot Graft Bone Cartilage Costl 6cm - [id number] Implanted:Qty: 1 on 06/22/2016 by Any Tovar MD at OR [facility] [place] N/A: Nose [employer] 04/16/2021 [id number] / / documented as of this encounter Advance Directives Latest Code Status on File Code Status Date Activated Date Inactivated Comments Full Code 07/24/2015 7:58 AM 07/24/2015 3:54 PM Thi s order reflects the patients wishes and were consensually agreed upon. Care Teams International Marketing Executive Relationship Specialty Start Date End Date Keith Cross MD [address] [place] [address] PCP - General Family Medicine 03/23/21 documented as of this encounter
--- OUTSIDE RECORDS SUMMARY | 2024-02-05 20:33 | External Medical Summary | Summary of Care ---
Author Name Unknown Organization [facility] Address [address] [place] [address] Phone [phone] Care Team Providers Care Belly Dancer Name Role Phone Keith Cross MD Primary Care Provider [phone] Reason for Visit * Reason Onset Date Comments Advice 12/05/2023 Encounter Details Date Type Department Care Team (Late st Contact Info) Description 12/05/2023 Telephone Family Practice [facility] [address] [facility] [place] [address] Keith Cross MD [address] [facility] [place] [address] Advice Allergies Active Allergy Reactions Criticality Noted Date Comments Tramadol Hcl 12/08/2011 Gi upset documented as of this encounter (statuses as of 12/07/2023) Medications Medication Sig Dispensed Refills Start Date [...] 120 Capsule 5 06/19/2023 Active Neomycin-Polymyxi n-HC 3.5-26376-0 Otic Solution Administer 4 Drops into ears [...] Capsule 1 09/14/2023 Active Vitamin D (Ergocalciferol) 31840 UNIT Oral Capsule Take 1 Capsule by [...] as of this encounter (statuses as of 12/07/2023) Active Problems Problem Noted Date Diagnosed Date Depression with anxiety 06/16/2023 Personal history of DVT (deep vein thrombosis) 0 04/09/2021 History of pulmonary embolism 04/09/2021 ALS (amyotrophic lateral sclerosis) 05/02/2016 Orthostatic hypotension 12/18/2015 GERD (gastroesophageal reflux disease) 6 Irritable bowel syndrome with diarrhea 1 Attention deficit disorder without hyperactivity documented as of this encounter (statuses as of 12/07/2023) Resolved Problems Problem Noted Date Diagnosed Date [...] as of this encounter (statuses as of 12/07/2023) Immunizations Name Administration Dates Next Due COVID-19 [...] Miscellaneous Notes * Telephone Encounter - Tianna Marienlli RN - 12/07/2023 9:19 AM EDT See myg encounter. * Telephone Encounter - Keith Cross MD - 12/06/2023 9:21 PM EDT I recommend meclizine which can be purchased over the counter. * Telephone Encounter - Elvira Hopson LPN - 12/06/2023 7:44 AM EDT They are looking for suggestions for vertigo. * Telephone Encounter - Keith Cross MD - 12/05/2023 5:45 PM EDT Patient's significant other makes his calls for him. Someone needs to call her, find out what it isexactly that she wants/needs from me, then I can respond appropriately. She does have my personal cell phone number but has been leaving me multiple lengthy messages. * Telephone Encounter - Elvira Hopson LPN - 12/05/2023 5:08 PM EDT Copied from s/o chart. I forgot to send this yesterday- we had not yet used the suppository, and Suleiman was able to go a bit on his own. Thanks for your suggestions. Hopefully things will continue to go on their own. We have suppository on hand should we need it. Thanks again. Suleiman is still having issues with dizziness and vertigo. He has stopped the motion sickness tabletsbut resumed the patch to control secretions- fortunately his bms are continuing to occur more frequently without needed the suppository. Any suggestions for the vertigo? Please respond here as Suleiman isnt cheating his phone. Thanks Nellie and Suleiman Moffett documented in this encounter Plan of Treatment Upcoming Encounters Date Type Department Care Team (Late st Contact Info) Description 06/17/2024 9:00 AM EDT Office Visit Family Practice [facility] [address] [place] [address] Keith Cross MD [address] [place] [address] Health Maintenance Due Date Last Done Comments [...] this encounter Medical Devices Implanted Type Area Refinery Operator Assistant Device Identifier Shelf Expiration Date Model / Serial / Lot Graft Bone Cartilage Costl 6cm - [id number] Implanted:Qty: 1 on 06/22/2016 by Any Tovar MD at OR [facility] [place] N/A: Nose [employer] 04/16/2021 [id number] / / documented as of this encounter Advance Directives Latest Code Status on File Code Status Date Activated Date Inactivated Comments Full Code 07/24/2015 7:58 AM 07/24/2015 3:54 PM Thi s order reflects the patients wishes and were consensually agreed upon. Care Teams Belly Dancer Relationship Specialty Start Date End Date Keith Cross MD 132 [facility] [place] [address] PCP - General Family Medicine 03/23/21 documented as of this encounter
--- OUTSIDE RECORDS SUMMARY | 2024-02-05 20:33 | External Medical Summary | Summary of Care ---
Author Name Unknown Organization [facility] Address [address] [place] [address] Phone [phone] Care Team Providers Care Rail Assembler Name Role Phone Keith Cross MD Primary Care Provider [phone] Encounter Details Date Type Department Care Team (Late st Contact Info) Description 08/17/2023 Telephone Family Practice [facility] [address] [place] [address] Keith Cross MD [address] [facility] [place] [id number] Allergies Active Allergy Reactions Criticality Noted Date Comments Tramadol Hcl 12/08/2011 Gi upset documented as of this encounter (statuses as of 11/16/2023) Medications Medication Sig Dispensed Refills Start Date End Date Status escitalopram (LEXAPRO) 10 MG Tablet Take 2 Tablets by mouth in the morning. 0 6 Active Amphetamine-Dex troamphetamine 30 MG Tablet Take 20 mg by mouth in the morning and 20 mg before bedtime. 30mg in the morning and 30 mg at lunch. 0 Active Multiple Vitamins-Minera ls (MULTIVITAMIN ADULT) TABS Take by mouth. 0 [...] ABDOMINAL PAIN 120 Capsule 5 3 Active Neomycin-Polymy jhon-HC 3.5-72571-4 Otic Solution Administer 4 Drops into ears in the morning and 4 Drops at noon and 4 Drops before bedtime. To affected ear, for 10 days.. 10 mL 1 3 Active Ondansetron HCl 4 MG Oral Tablet Take 1 Tablet by mouth every 6 hours as needed for Nausea. 30 Tablet 0 3 Active Gabapentin 100 MG Oral Capsule (Neurontin) Take 3 Capsules by mouth in the morning and 3 Capsules at noon and 3 Capsules before bedtime. 0 2 08/23/20 23 Discontinued(Dis charged) Omeprazole 20 MG Oral Capsule Delayed Release (PriLOSEC)Indic ations:Gastroes ophageal reflux disease without esophagitis 1 daily in the AM 90 Capsule 3 3 09/14/19 24 Discontinued Hyoscyamine Sulfate ER 0.375 MG Oral Tablet Extended Release 12 Hour (Levbid) Take 1 Tablet by mouth 2 times a day as needed for Cramping. For abdominal pain. Do not cut, crush or chew 60 Tablet 2 3 09/05/20 23 Discontinued Nirmatrelvir&Ri tonavir 300/100 20 x 150 MG & 10 x 100MG Oral Tablet Therapy Pack (Paxlovid)Indic ations:COVID-19 Take 2 pink tablets of Nirmatrelvir and 1 white tablet of Ritonavir two times a day by mouth. 30 Tablet 0 3 08/23/20 23 Discontinued(Med ication List Clean Up) HYDROcodone Bit-Homatrop MBr 5-1.5 MG/5ML Oral Solution (Hycodan)Indica tions:COVID-19 Take 5 mL by mouth every 6 hours as needed for Cough. 120 mL 0 3 08/23/20 23 Discontinued(Dis charged) Apixaban 5 MG Oral Tablet (Eliquis) TAKE 1 TABLET BY MOUTH TWO TIMES DAILY 180 Tablet 0 3 11/01/19 24 Discontinued documented as of this encounter (statuses as of 11/16/2023) Active Problems Problem Noted Date Diagnosed Date Depression with anxiety 06/16/2023 Personal history of DVT (deep vein thrombosis) 0 04/09/2021 History of pulmonary embolism 04/09/2021 ALS (amyotrophic lateral sclerosis) 05/02/2016 Orthostatic hypotension 12/18/2015 GERD (gastroesophageal reflux disease) 6 Irritable bowel syndrome with diarrhea 1 Attention deficit disorder without hyperactivity documented as of this encounter (statuses as of 11/16/2023) Resolved Problems Problem Noted Date Diagnosed Date [...] as of this encounter (statuses as of 11/16/2023) Immunizations Name Administration Dates Next Due COVID-19 [...] encounter Miscellaneous Notes * Telephone Encounter - Hawa Mcmahan LPN - 08/18/2023 4:30 PM EST Called pt, let detailed message on identified vm * Telephone Encounter - Keith Cross MD - 08/18/2023 12:07 PM EST Sent to [facility] * Telephone Encounter - Hawa Mcmahan LPN - 08/18/2023 11:46 AM EST Looks like pt was at hospital and prescribed. Pt has appt with you 08/23/2023. Are you willing to send in medication for ongoing nausea since having covid? * Telephone Encounter - Glenna Toribio OSA - 08/17/2023 3:30 PM EST There is a refill request for medication Ondansetron ODT 4mg tablet but I have nothing in the medication list for it documented in this encounter Plan of Treatment Upcoming Encounters Date Type Department Care Team (Late st Contact Info) Description 06/17/2024 9:00 AM EDT Office Visit Family Practice [facility] [address] [place] [address] Keith Cross MD [address] [place] [address] Health Maintenance Due Date Last Done Comments [...] this encounter Medical Devices Implanted Type Area Industrial Health Engineer Device Identifier Shelf Expiration Date Model / Serial / Lot Graft Bone Cartilage Costl 6cm - [id number] Implanted:Qty: 1 on 06/22/2016 by [place]ar [place] [facility] [place]A: Nose [employer] 04/16/2021 [id number] / / documented as of this encounter Advance Directives Latest Code Status on File Code Status Date Activated Date Inactivated Comments Full Code 07/24/2015 7:58 AM 07/24/2015 3:54 PM Thi s order reflects the patients wishes and were consensually agreed upon. Care Teams Rail Assembler Relationship Specialty Start Date End Date Keith Cross MD [address] [place] [address] PCP - General Family Medicine 03/23/21 documented as of this encounter
--- OUTSIDE RECORDS SUMMARY | 2024-02-05 20:33 | External Medical Summary | Summary of Care ---
Author Name Unknown Organization [facility] Address [address] [place] [address] Phone [phone] Care Team Providers Care Corporate Quality Engineer Name Role Phone Keith Cross MD Primary Care Provider [phone] Reason for Visit * Reason Onset Date Comments Advice 12/12/2023 Encounter Details Date Type Department Care Team (Late st Contact Info) Description 12/12/2023 Telephone Family Practice [facility] [address] [place] [address] Keith Cross MD [address] [facility] [address] Advice Allergies Active Allergy Reactions Criticality Noted Date Comments Tramadol Hcl 12/08/2011 Gi upset documented as of this encounter (statuses as of 12/12/2023) Medications Medication Sig Dispensed Refills Start Date [...] 120 Capsule 5 06/19/2023 Active Neomycin-Polymyxi n-HC 3.5-42755-0 Otic Solution Administer 4 Drops into ears [...] Capsule 1 09/14/2023 Active Vitamin D (Ergocalciferol) 86078 UNIT Oral Capsule Take 1 Capsule by [...] 11/27/2023 Active diazePAM 2 MG Oral Tablet (Valium)Indicatio ns:Benign paroxysmal 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 30 Tablet 0 12/12/2023 Active documented as of this encounter (statuses as of 12/12/2023) Active Problems Problem Noted Date Diagnosed Date Depression with anxiety 06/16/2023 Personal history of DVT (deep vein thrombosis) 0 04/09/2021 History of pulmonary embolism 04/09/2021 ALS (amyotrophic lateral sclerosis) 05/02/2016 Orthostatic hypotension 12/18/2015 GERD (gastroesophageal reflux disease) 6 Irritable bowel syndrome with diarrhea 1 Attention deficit disorder without hyperactivity documented as of this encounter (statuses as of 12/12/2023) Resolved Problems Problem Noted Date Diagnosed Date [...] as of this encounter (statuses as of 12/12/2023) Immunizations Name Administration Dates Next Due COVID-19 [...] Telephone Encounter - Gee Nathan RN - 12/12/2023 10:47 AM EDT Please see patient message encounter from 12/07/2023 for more information. * Telephone Encounter - Wendy Mccabe OSA - 12/12/2023 9:01 AM EDT Patient is still experiencing Vertigo and would like additional suggestions documented in this encounter Plan of Treatment Upcoming Encounters Date Type Department Care Team (Late st Contact Info) Description 06/17/2024 9:00 AM EDT Office Visit Family Practice [facility] [address] [place] [address] Keith Cross MD [address] [place] [address] Health Maintenance Due Date Last Done Comments [...] this encounter Medical Devices Implanted Type Area Floorworker Device Identifier Shelf Expiration Date Model / Serial / Lot Graft Bone Cartilage Costl 6cm - [id number] Implanted:Qty: 1 on 06/22/2016 by Any Tovar MD at [place] [facility] [place] N/A: Nose [employer] 04/16/2021 [id number] / / documented as of this encounter Advance Directives Latest Code Status on File Code Status Date Activated Date Inactivated Comments Full Code 07/24/2015 7:58 AM 07/24/2015 3:54 PM Th is order reflects the patients wishes and were consensually agreed upon. Care Teams Corporate Quality Engineer Relationship Specialty Start Date End Date Keith Cross MD [address] [place] [address] PCP - General Family Medicine 03/23/21 documented as of this encounter
--- NOTE | 2024-02-05 20:42 | Emergency Department Note ---
Impression & Plan Acute dyspnea, Acute hypoxemic respiratory failure, Pneumonia, Sepsis ED Provider Note HISTORY OF PRESENT ILLNESS: Patient is a 48-year-old male presenting with shortness of breath and hypoxia. Patient reportedly has had progressively worsening shortness of breath over the last 4 days. He does not normally wear any oxygen at baseline. He became significantly worse today and was having increased work of breathing so family called 911. On EMS arrival, the patient was found to have sats in the mid 80s. He was started on 15 L nonrebreather. Patient denies any recent fevers in the last few days. Denies any recent sick contact exposures. Denies any chest pain. He does have a history of pulmonary embolism and is on Eliquis. Denies any missed doses. ROS: as above PHYSICAL EXAM: Constitutional: Patient appears in no acute distress. HENT: Head: Normocephalic and atraumatic. Eyes: EOMI, PERRL Mouth/Throat: Mucous membranes moist. Neck: Trachea midline. Neck supple. Cardiovascular: Tachycardic with regular rhythm. No murmurs, rubs or gallops. Intact distal pulses. Pulmonary/Chest: No respiratory distress. Breath sounds clear and equal bilaterally. No wheezes or rales. No chest wall tenderness to palpation. Abdominal: Abdomen soft, no tenderness, rebound or guarding. Musculoskeletal: No edema, tenderness or deformity noted. Skin: Warm and dry. No rash, erythema, pallor or cyanosis Psychiatric: Appropriate mood and affect for situation. Neurological: Alert and keenly responsive. CN II-XII grossly intact, moving all extremities equally and fully. MDM: - Vitals signs showed fever and tachycardia - History obtained via patient and EMS. History as above. - Chronic conditions affecting care: ALS; PE (on Eliquis) - Differential diagnoses include, but are not limited to: Congestive heart failure; acute coronary syndrome; COPD/asthma exacerbation; pulmonary edema; pulmonary embolism; pneumonia; pneumothorax; viral syndrome = - Order placed for continuous cardiac monitoring. At this time, monitor showed rate of 135 bpm with sinus rhythm, per my interpretation. - External medical records reviewed. Discharge summary dated 11/10/2023 was reviewed. Patient was admitted at that time for acute hypoxemic respiratory failure, bilateral lower lobe pneumonia and a small bowel obstruction. - EKG interpreted by myself showed normal sinus rhythm. Rate 77 bpm. QT 314. No acute ischemic changes. - Laboratory workup interpreted by myself showed normal WBC; hyponatremia (Na 132); hyperglycemia (glucose 148); normal BNP; normal troponin; normal lactate; normal procalcitonin - Blood cultures obtained - Patient given 2.5L NS in ER. Empirically started on IV rocephin. - VBG showed respiratory acidosis (pH 7.35; pCO2 73) - CXR showed right-sided pneumonia, per my interpretation. - Viral respiratory panel negative - CT PE negative for PE. Noted to have consolidation/collapse of the majority of the right lower lobe with debris-filled right lower lobe bronchi. Also have patchy pulmonary opacities with posterior right upper lobe. - IV zosyn added to antibiotic coverage. - Patient given 1g IV tylenol in ER for elevated temperature. - Given duoneb treatment and mucomyst for cough assist. - Discussion was had with correctional case manager about patient's case and need for admission - Hospitalist consulted for admission - [facility]. I have personally spent 34 minutes of critical care time in the direct management of this patient. This includes bedside care, interpretation of diagnostic studies, and testing, discussion with consultants, patient, and family members, and other required patient management activities. This 34 minutes is in excess of all separately billable procedures. 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 GERD (gastroesophageal reflux disease) ALS (amyotrophic lateral sclerosis) (Acute) Medical History COVID-19 History of pulmonary embolism ADD (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 GERD (gastroesophageal reflux disease) ALS (amyotrophic lateral sclerosis) Surgical History History of vasectomy H/O rhinoplasty S/P left knee arthroscopy Family History Father Pulmonary embolism Mother Hypertension Social History Smoking Status: Unknown if ever smoked Second Hand Exposure: No; Do You Dip or Chew Tobacco: No; Hx Alcohol Use: No Hx Substance Use: No Preferred Language: [place] Communication Ability: Effective Cleaner Furniture Required: No Beliefs That Will Affect Care: None marital status: Current Living Situation: Spouse current occupational status: employed Feels Safe at Home: Yes Assistive Devices: Hospital Bed, Mechanical Lift, Nebulizer, Wheelchair and Other Allergies Allergies Allergy/AdvReac Type Severity Reaction Status Date / Time tramadol AdvReac Unknown GI Verified 02/05/24 22:52 discomfort Home Meds Home Medications Medication Instructions Recorded Confirmed escitalopram oxalate 20 mg tablet 20 mg PO QAM 01/31/19 02/05/24 omeprazole 20 mg capsule,delayed 20 mg PO QAM 01/31/19 02/05/24 release apixaban 5 mg tablet (Eliquis) 5 mg PO BID 11/19/20 02/05/24 ipratropium 0.5 mg-albuterol 3 mg 3 ml inhalation Q6H PRN WHEEZING 07/25/23 02/05/24 (2.5 mg base)/3 mL nebulization OR SOB soln gabapentin 300 mg capsule 300 mg PO TID 11/14/23 02/05/24 mirtazapine 15 mg tablet 15 mg PO HS 11/14/23 02/05/24 clonazepam 0.5 mg tablet 0.25 - 0.5 mg PO HS 02/05/24 02/05/24 dextroamphetamine-amphetamine 15 15 mg PO TID 02/05/24 02/05/24 mg tablet scopolamine base 1 mg over 3 days 1 patch topical [id number] 02/05/24 02/05/24 transdermal patch Previous Rx's Medication Instructions Recorded ondansetron 4 mg disintegrating 4 mg PO Q6H PRN nausea and 07/25/23 tablet vomiting #14 tabs ergocalciferol (vitamin D2) 1,250 50,000 unit PO Q7D #7 caps 12/07/23 mcg (50,000 unit) capsule Results & Data (ED) Vital Signs Vital Signs - 24 hr 02/05/24 20:22 02/05/24 20:34 02/05/24 20:52 Temperature 37.4 C Temperature Source Oral Pulse Rate 106 H 80 Pulse Rhythm Regular Pulse Strength Normal Respiratory Rate 25 H Respiratory Effort / Characteristics Non-Labored Spontaneous Respiratory Depth Normal Respiratory Pattern Regular Blood Pressure 144/99 H Blood Pressure [Right Arm] Blood Pressure Mean 114 Blood Pressure Mean [Right Arm] Blood Pressure Position Semi-fowlers Blood Pressure Position [Right Arm] Pulse Oximetry 94 98 Oxygen Delivery Method Nasal Cannula Nasal Cannula Oxygen Flow Rate 6 6 Sepsis Recent Fever Within 48 Hours No Sepsis New/Unexplained Change in Mental Status N/A Sepsis Action Taken by Nursing Physician Notified 02/05/24 20:52 02/05/24 20:52 02/05/24 21:09 Temperature 37.4 C Temperature Source Oral Pulse Rate 134 H Pulse Rhythm Regular Pulse Strength Respiratory Rate 25 H 25 H Respiratory Effort / Characteristics Short of Breath SOB on Exertion Respiratory Depth Shallow Respiratory Pattern Blood Pressure Blood Pressure [Right Arm] 144/99 H Blood Pressure Mean Blood Pressure Mean [Right Arm] 114 Blood Pressure Position Blood Pressure Position [Right Arm] Semi-fowlers Pulse Oximetry 98 98 98 Oxygen Delivery Method Nasal Cannula Nasal Cannula Nasal Cannula Oxygen Flow Rate 6 6 5 Sepsis Recent Fever Within 48 Hours Sepsis New/Unexplained Change in Mental Status Sepsis Action Taken by Nursing 02/05/24 22:00 Temperature Temperature Source Pulse Rate Pulse Rhythm Pulse Strength Respiratory Rate Respiratory Effort / Characteristics Respiratory Depth Respiratory Pattern Blood Pressure Blood Pressure [Right Arm] Blood Pressure Mean Blood Pressure Mean [Right Arm] Blood Pressure Position Blood Pressure Position [Right Arm] Pulse Oximetry 98 Oxygen Delivery Method Nasal Cannula Oxygen Flow Rate Sepsis Recent Fever Within 48 Hours Sepsis New/Unexplained Change in Mental Status Sepsis Action Taken by Nursing Laboratory Data 02/05/24 20:33 02/05/24 20:33 Lab Results 02/05/24 Range/Units 20:33 WBC 9.59 (4.8-10.8) K/ul RBC 4.66 L (4.70-6.10) M/uL Hgb 14.1 (14.0-18.0) g/dl Hct 42.6 (42.0-52.0) % MCV 91.4 (80.0-100.0) fL MCH 30.3 (25.0-34.0) pg MCHC 33.1 (32.0-36.0) g/dL RDW Std Deviation 42.9 (36.4-46.3) fL RDW Coeff of Hussain 12.7 (11.5-14.5) % Plt Count 300 (130-400) K/uL MPV 11.6 (9.4-12.4) fL Immature Gran % (Auto) 0.2 % Neut % (Auto) 80.6 % Lymph % (Auto) 14.7 % Zavala % (Auto) 4.1 % Eos % (Auto) 0.1 % Baso % (Auto) 0.3 % Neut # (Auto) 7.73 H (1.40-6.50) K/uL Lymph # (Auto) 1.41 (1.20-3.40) K/uL Zavala # (Auto) 0.39 (0.11-0.59) K/uL Eos # (Auto) 0.01 (0.00-0.50) K/uL Baso # (Auto) 0.03 (0.00-0.20) K/uL Immature Gran # (Auto) 0.02 (0.01-0.20) K/uL PT 11.9 (9.0-12.0) Seconds INR 1.1 (0.9-1.1) VBG pH 7.35 L (7.36-7.41) VBG pCO2 73 H (38-50) mmHg VBG pO2 62 mmHg VBG HCO3 40 mmol/L VBG O2 Saturation 91.2 % VBG Base Excess 11.4 mEq/L Sodium 132 L (136-145) mmol/L Potassium 4.2 (3.5-5.1) mmol/L Chloride 90 L (98-107) mmol/L Carbon Dioxide 38 H (21-32) mmol/L Anion Gap 4 (3-11) BUN 7 (6-23) mg/dl Creatinine < 0.20 L (0.6-1.4) mg/dl Est Cr Clr Drug Dosing 393.6 ml/min Est GFR ( Amer) > 150.0 ml/min Est GFR (Non-Af Amer) > 150.0 ml/min BUN/Creatinine Ratio TNP Glucose 148 H (70-99(Fasting)) mg/dl Lactate 1.4 (0.4-2.0) mmol/L Calcium 9.3 (8.6-10.3) mg/dl Magnesium 1.8 (1.7-2.4) mg/dl Total Bilirubin 0.5 (0.2-1.0) mg/dl AST 17 (13-39) U/L ALT 13 (7-52) U/L Alkaline Phosphatase 90 (34-104) U/L Troponin I High Sens 10.9 (0-20) pg/ml B-Natriuretic Peptide 34 (0-100) pg/ml Total Protein 6.9 (6.0-8.3) gm/dl Albumin 3.6 (3.4-5.0) gm/dl Globulin 3.3 (2.5-4.0) gm/dl Albumin/Globulin Ratio 1.1 (0.9-2) Procalcitonin 0.10 (0-0.5) ng/ml Adenovirus (PCR) Not Detected (NotDetected) B. pertussis DNA (PCR) Not Detected (NotDetected) B.parapertussis DNA PCR Not Detected (NotDetected) C. pneumoniae DNA (PCR) Not Detected (NotDetected) Coronavirus OC43 (PCR) Not Detected (NotDetected) Coronavirus HKU1 (PCR) Not Detected (NotDetected) Coronavirus 229E (PCR) Not Detected (NotDetected) SARS-CoV-2 (PCR) Not Detected (NotDetected) Coronavirus NL63 (PCR) Not Detected (NotDetected) Human Metapneumovir PCR Not Detected (NotDetected) Influenza Type A (PCR) Not Detected (NotDetected) Influenza Type B (PCR) Not Detected (NotDetected) M. pneumoniae (PCR) Not Detected (NotDetected) Parainfluenza 1 (PCR) Not Detected (NotDetected) Parainfluenza 2 (PCR) Not Detected (NotDetected) Parainfluenza 3 (PCR) Not Detected (NotDetected) Parainfluenza 4 (PCR) Not Detected (NotDetected) RSV (PCR) Not Detected (NotDetected) Entero/Rhino (PCR) Not Detected (NotDetected) Administered Medications Discontinued Medications Sodium Chloride (Nss) 1,000 mls @ 999 mls/hr IV .Q1H1M CESAR Stop: 02/05/24 21:45 Last Infusion: 02/05/24 22:05 Dose: Infused Documented By: Admin: 02/05/24 20:51 Dose: 999 mls/hr Documented By: CLARISSA Acetaminophen (Ofirmev) 1,000 mg in 100 mls @ 400 mls/hr IV NOW STA Stop: 02/05/24 20:53 Last Infusion: 02/05/24 21:06 Dose: Infused Documented By: Admin: 02/05/24 20:51 Dose: 400 mls/hr Documented By: CLARISSA Ceftriaxone Sodium (Rocephin) 2,000 mg in 50 mls @ 100 mls/hr IV NOW STA Stop: 02/05/24 21:38 Last Infusion: 02/05/24 22:19 Dose: Infused Documented By: Admin: 02/05/24 21:47 Dose: 100 mls/hr Documented By: CLARISSA Piperacillin Sod/Tazobactam Sod (Zosyn) 4.5 gm in 100 mls @ 200 mls/hr IV NOW ONE Stop: 02/05/24 22:58 Last Admin: 02/05/24 22:42 Dose: 200 mls/hr Documented By: CLARISSA Ioversol (Optiray 320 125ml) 104 ml IV ONCE ONE Stop: 02/05/24 22:02 Last Admin: 02/05/24 22:01 Dose: 104 ml Documented By: SHERON Imaging Data Radiologist's Impression: Chest CTA 02/05/24 21:36 Exam(s): CTA CHEST IV Amt: 104 ml opti 320 EXAM: CT Angiography Chest With Intravenous Contrast CLINICAL HISTORY: Reason for exam: PE. TECHNIQUE: Axial computed tomographic angiography images of the chest with intravenous contrast. CTDI is 20.09 mGy and DLP is 678.9 mGy-cm. Automated exposure control was utilized for the study. A dose lowering technique was utilized adhering to the principles of ALARA. MIP reconstructed images were created and reviewed. COMPARISON: 11/15/2023 FINDINGS: Pulmonary arteries: Unremarkable. No CT evidence of pulmonary embolism. Aorta: No acute findings. No thoracic aortic aneurysm. Lungs: Consolidation/collapse of the majority of the right lower lobe with debris-filled right lower lobe bronchi. Patchy pulmonary opacities within the posterior right upper lobe. There is debris within right and left mainstem bronchi. Pleural space: Unremarkable. No significant effusion. No pneumothorax. Heart: Unremarkable. No cardiomegaly. No significant pericardial effusion. No evidence of RV dysfunction. Bones/joints: No acute fracture. No dislocation. Soft tissues: Unremarkable. Lymph nodes: Unremarkable. No enlarged lymph nodes. Liver: 1.4 cm simple cyst within the medial inferior right lobe of the liver. IMPRESSION: 1. No CT evidence of pulmonary embolism. 2. Consolidation/collapse of the majority of the right lower lobe with debris-filled right lower lobe bronchi. 3. Patchy pulmonary opacities within the posterior right upper lobe. 4. Debris within right and left mainstem bronchi. Electronically signed by: Curt Pedraza M.D. 02/05/24 22:28 PM Discharge Plan Visit Data Chief Complaint: Shortness of Breath/Dyspnea Stated Complaint: SOB ED Provider: Ceci Andesron Discharge Problem: Acute dyspnea, Acute hypoxemic respiratory failure, Pneumonia, Sepsis Forms Stand Alone Forms: [facility] Prescriptions Prescriptions: No Action omeprazole 20 mg capsule,delayed release(DR/EC) 20 mg PO QAM escitalopram oxalate 20 mg tablet 20 mg PO QAM ipratropium-albuterol 0.5 mg-3 mg(2.5 mg base)/3 mL solution for nebulization 3 ml INHALATION Q6H PRN (Reason: WHEEZING OR SOB) ondansetron 4 mg tablet,disintegrating 4 mg PO Q6H PRN (Reason: nausea and vomiting) Qty: 14 0RF Eliquis 5 mg tablet 5 mg PO BID ergocalciferol (vitamin D2) 1,250 mcg (50,000 unit) Capsule 50,000 unit PO Q7D Qty: 7 0RF Rx Instructions: Sun gabapentin 300 mg capsule 300 mg PO TID mirtazapine 15 mg tablet 15 mg PO HS scopolamine base 1 mg over 3 days patch 3 day 1 patch topical [id number] clonazepam 0.5 mg tablet 0.25 - 0.5 mg PO HS dextroamphetamine-amphetamine 15 mg tablet 15 mg PO TID Referrals Referrals: Keith Cross MD [Primary Care Provider] -
[2024-02-05] MEDS: SODIUM CHLORIDE 0.9% 1,000 ML IV SCH (20:51)
[2024-02-05] MEDS: ACETAMINOPHEN 1,000 MG/100 ML VIAL IV STA (20:51)
[2024-02-05 20:52] LABS: Base Excess VBG 11.4 mEq/L; HCO3 VBG 40 mmol/L; Oxygen Saturation VBG 91.2 %; PCO2 VBG 73 mmHg (38-50); PO2 VBG 62 mmHg; pH VBG 7.35 (7.36-7.41)
[2024-02-05 21:08] LABS: Basophils # (auto) 0.03 K/uL (0.00-0.20); Basophils % (auto) 0.3 %; Eosinophils # (auto) 0.01 K/uL (0.00-0.50); Eosinophils % (auto) 0.1 %; Hematocrit (blood only) 42.6 % (42.0-52.0); Hemoglobin 14.1 g/dl (14.0-18.0); Immature Granulocytes # (auto) 0.02 K/uL (0.01-0.20); Immature Granulocytes % (auto) 0.2 %; Lymphocytes # (auto) 1.41 K/uL (1.20-3.40); Lymphocytes % (auto) 14.7 %; Mean Corpuscular Hemoglobin 30.3 pg (25.0-34.0); Mean Corpuscular Hgb Conc 33.1 g/dL (32.0-36.0); Mean Corpuscular Volume 91.4 fL (80.0-100.0); Mean Platelet Volume 11.6 fL (9.4-12.4); Monocytes # (auto) 0.39 K/uL (0.11-0.59); Monocytes % (auto) 4.1 %; Neutrophils # (auto) 7.73 K/uL (1.40-6.50); Neutrophils % (auto) 80.6 %; Platelet Count 300 K/uL (130-400); RDW Coefficient of Variation 12.7 % (11.5-14.5); RDW Standard Deviation 42.9 fL (36.4-46.3); Red Blood Count 4.66 M/uL (4.70-6.10); White Blood Count 9.59 K/ul (4.8-10.8)
[2024-02-05 21:26] LABS: Alanine Aminotransferase 13 U/L (7-52); Albumin Globulin Ratio 1.1 (0.9-2); Albumin Level 3.6 gm/dl (3.4-5.0); Alkaline Phosphatase 90 U/L (34-104); Anion Gap 4 (3-11); Aspartate Aminotransferase 17 U/L (13-39); Bilirubin,Total 0.5 mg/dl (0.2-1.0); Blood Urea Nitrogen 7 mg/dl (6-23); Calcium 9.3 mg/dl (8.6-10.3); Carbon Dioxide 38 mmol/L (21-32); Chloride 90 mmol/L (98-107); Creatinine Clr Calc Pharmacy 393.6 ml/min; Est GFR (African American) > 150.0 ml/min; Est GFR (Non-African American) > 150.0 ml/min; Globulin 3.3 gm/dl (2.5-4.0); Glucose 148 mg/dl (70-99(Fasting)); Magnesium 1.8 mg/dl (1.7-2.4); Potassium 4.2 mmol/L (3.5-5.1); Sodium 132 mmol/L (136-145); Total Protein 6.9 gm/dl (6.0-8.3)
[2024-02-05 21:31] LABS: Troponin I High Sensitivity 10.9 pg/ml (0-20)
[2024-02-05 21:36] LABS: INR 1.1 (0.9-1.1); Prothrombin Time 11.9 Seconds (9.0-12.0)
[2024-02-05] MEDS: cefTRIAXone SODIUM 2,000 MG/50 ML BAG IV STA (21:47)
[2024-02-05 21:56] LABS: Adenovirus PCR Not Detected (NotDetected); Bordetella parapertussis PCR Not Detected (NotDetected); Bordetella pertussis PCR Not Detected (NotDetected); Chlamydia pneumoniae PCR Not Detected (NotDetected); Coronavirus 229E PCR Not Detected (NotDetected); Coronavirus CoV-2 (COVID19)PCR Not Detected (NotDetected); Coronavirus HKU1 PCR Not Detected (NotDetected); Coronavirus NL63 PCR Not Detected (NotDetected); Coronavirus OC43PCR Not Detected (NotDetected); Human Metapneumovirus PCR Not Detected (NotDetected); Influenza A PCR Not Detected (NotDetected); Influenza B PCR Not Detected (NotDetected); Mycoplasma pneumoniae PCR Not Detected (NotDetected); Parainfluenza Virus 1 PCR Not Detected (NotDetected); Parainfluenza Virus 2 PCR Not Detected (NotDetected); Parainfluenza Virus 3 PCR Not Detected (NotDetected); Parainfluenza Virus 4 PCR Not Detected (NotDetected); Respiratory Syncytial VirusPCR Not Detected (NotDetected); Rhinovirus/Enterovirus PCR Not Detected (NotDetected)
[2024-02-05] MEDS: OPTIRAY 320 125ml IV ONE (22:01)
--- NOTE | 2024-02-05 22:28 | CT Scan Report ---
Exam(s): CTA CHEST IV Amt: 104 ml opti 320 EXAM: CT Angiography Chest With Intravenous Contrast CLINICAL HISTORY: Reason for exam: PE. TECHNIQUE: Axial computed tomographic angiography images of the chest with intravenous contrast. CTDI is 20.09 mGy and DLP is 678.9 mGy-cm. Automated exposure control was utilized for the study. A dose lowering technique was utilized adhering to the principles of ALARA. MIP reconstructed images were created and reviewed. COMPARISON: 11/15/2023 FINDINGS: Pulmonary arteries: Unremarkable. No CT evidence of pulmonary embolism. Aorta: No acute findings. No thoracic aortic aneurysm. Lungs: Consolidation/collapse of the majority of the right lower lobe with debris-filled right lower lobe bronchi. Patchy pulmonary opacities within the posterior right upper lobe. There is debris within right and left mainstem bronchi. Pleural space: Unremarkable. No significant effusion. No pneumothorax. Heart: Unremarkable. No cardiomegaly. No significant pericardial effusion. No evidence of RV dysfunction. Bones/joints: No acute fracture. No dislocation. Soft tissues: Unremarkable. Lymph nodes: Unremarkable. No enlarged lymph nodes. Liver: 1.4 cm simple cyst within the medial inferior right lobe of the liver. IMPRESSION: 1. No CT evidence of pulmonary embolism. 2. Consolidation/collapse of the majority of the right lower lobe with debris-filled right lower lobe bronchi. 3. Patchy pulmonary opacities within the posterior right upper lobe. 4. Debris within right and left mainstem bronchi. Electronically signed by: Curt Pedraza M.D. 02/05/24 22:28 PM
[2024-02-05] MEDS: PIPERACILLIN/TAZOBACTAM 4.5 GM/100 ML BAG IV ONE (22:42)
[2024-02-05] MEDS: ACETYLCYSTEINE 20% INHAL SOLN 4ML ***DISPENSED BY RESP. INH SCH (23:24)
[2024-02-05] MEDS: ALBUT/IPRATROP 3MG/0.5MG NEB 3 ML VIAL NEB STA (23:24)
[2024-02-05] MEDS: SODIUM CHLORIDE 0.9% 1,000 ML IV ONE (23:34)
[2024-02-05] MEDS: SODIUM CHLORIDE 0.9% 500 ML IV ONE (23:40)
--- NOTE | 2024-02-06 02:12 | History & Physical Report ---
Date of Service February 06, 2024 Assessment & Plan (1) Acute dyspnea: Plan: 48-year-old male with past medical history significant for orthostatic hypotension, irritable bowel syndrome, GERD, ALS, attention deficit disorder without hyperactivity, history of DVT and PE, depression with anxiety who lives at home with his and wheelchair-bound comes in because of shortness of breath going on for last few days. States having a lot of mucus. Denies any fevers. States eats regular food. Denies any headache. No runny nose or sore throat. Patient is somewhat struggling to answer the questions but answering appropriately. Denies chest pain currently. Denies nausea. Denies abdominal pain. States micturating okay. Moving bowels okay. Patient was hypoxic to EMS and Currently requiring 5 L oxygen. acute dyspnea no PE CTA Chest: Consolidation/collapse of the majority of the right lower lobe with debris-filled right lower lobe bronchi. 3. Patchy pulmonary opacities within the posterior right upper lobe. 4. Debris within right and left mainstem bronchi. empirically started on Zosyn nebs continue oxygen supplementation n.p.o. for now IV fluids close monitor speech evaluation pulmonary consult "lower extremity feet cold and discoloration denies any pain will get arterial Doppler ALS quadriplegia in the setting of ALS and nonambulatory status seems on BiPAP while sleeping history of DVT and PE on Eliquis history of attention deficit disorder without hyperactivity depression with anxiety continue home meds GERD on omeprazole neuropathy on gabapentin DVT prophylaxis on Eliquis disposition telemetry full code History of Present Illness Chief Complaint: shortness of breath Primary Care Provider: Keith Cross MD 48-year-old male with past medical history significant for orthostatic hypotension, irritable bowel syndrome, GERD, ALS, attention deficit disorder without hyperactivity, history of DVT and PE, depression with anxiety who lives at home with his and wheelchair-bound comes in because of shortness of breath going on for last few days. States having a lot of mucus. Denies any fevers. States eats regular food. Denies any headache. No runny nose or sore throat. Patient is somewhat struggling to answer the questions but answering appropriately. Denies chest pain currently. Denies nausea. Denies abdominal pain. States micturating okay. Moving bowels okay. Patient was hypoxic to EMS and Currently requiring 5 L oxygen. Past medical history. As mentioned above. Past surgical history. Circumcision. Graft rib cartilage to face. Knee arthroscopy. Rhinoplasty. Appendectomy. Revision of ulnar nerve at elbow left side. Vasectomy. Social history. . No smoking. Alcohol rare. No drug use Family history. Father had blood clot. Depression. Mother had hypertension. Maternal grandfather had mouth cancer. Stroke. Maternal grandmother had hypertension. Paternal grandfather had CO. Allergies Allergy/AdvReac Type Severity Reaction Status Date / Time tramadol AdvReac Unknown GI Verified 02/05/24 22:52 discomfort Home Medications Medication Instructions Recorded Confirmed Type escitalopram oxalate 20 mg tablet 20 mg PO QAM 01/31/19 02/05/24 History omeprazole 20 mg capsule,delayed 20 mg PO QAM 01/31/19 02/05/24 History release apixaban 5 mg tablet (Eliquis) 5 mg PO BID 11/19/20 02/05/24 History ipratropium 0.5 mg-albuterol 3 mg 3 ml inhalation Q6H PRN WHEEZING 07/25/23 02/05/24 History (2.5 mg base)/3 mL nebulization OR SOB soln ondansetron 4 mg disintegrating 4 mg PO Q6H PRN nausea and 07/25/23 02/05/24 Rx tablet vomiting #14 tabs ergocalciferol (vitamin D2) 1,250 50,000 unit PO Q7D #7 caps 08/17/23 02/05/24 Rx mcg (50,000 unit) capsule gabapentin 300 mg capsule 300 mg PO TID 11/14/23 02/05/24 History mirtazapine 15 mg tablet 15 mg PO HS 11/14/23 02/05/24 History clonazepam 0.5 mg tablet 0.25 - 0.5 mg PO HS 02/05/24 02/05/24 History dextroamphetamine-amphetamine 15 15 mg PO TID 02/05/24 02/05/24 History mg tablet scopolamine base 1 mg over 3 days 1 patch topical [id number] 02/05/24 02/05/24 History transdermal patch Past Med/Surg History Problem List (Updated 02/05/24 @ 23:06 by Ceci Anderson MD) Sepsis (Acute) Pneumonia (Acute) Acute hypoxemic respiratory failure (Acute) Acute dyspnea (Acute) Pneumonia Acute hypoxemic respiratory failure (Acute) SBO (small bowel obstruction) (Acute) Vitamin D deficiency Neuropathy Sepsis Abdominal pain (Acute) Weakness (Acute) COVID-19 (Acute) COVID-19 History of pulmonary embolism Fatigue after COVID-19 vaccination (Acute) Pulmonary nodule Acute saddle pulmonary embolism ADD (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 GERD (gastroesophageal reflux disease) ALS (amyotrophic lateral sclerosis) (Acute) Medical History COVID-19 History of pulmonary embolism ADD (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 GERD (gastroesophageal reflux disease) ALS (amyotrophic lateral sclerosis) Surgical History History of vasectomy H/O rhinoplasty S/P left knee arthroscopy Family History Father Pulmonary embolism Mother Hypertension Social History Smoking Status: Never smoker Second Hand Exposure: No; Do You Dip or Chew Tobacco: No; Tobacco Cessation Education Requested by Patient: No Hx Alcohol Use: No Hx Substance Use: No Preferred Language: Indian Communication Ability: Effective Grain Weigher Required: No Beliefs That Will Affect Care: None marital status: Current Living Situation: Spouse current occupational status: employed Other Information That Helps Us Care for You: No Feels Safe at Home: Yes Safety Concerns: Feels Safe At This Time Assistive Devices: Wheelchair Review of Systems Review of Systems: All systems reviewed & are unremarkable except as noted in HPI & below Physical Exam Physical Exam: General- Not in acute distress Head- atraumatic Eyes- PERRL ENT- oropharynx dry Lungs- clear to auscultation no wheezing or crackles. Heart- regular rhythm; no murmur, no gallop. Abdomen- sluggish bowel sounds, soft, nontender, no distension. Extremities- mild pretibial edema, b/l feet cold and mild bluish coloration seen. Feet non tender. Neuro- alert, oriented x 3; PERRL, no facial palsy; no dysarthria; not able to move extremities. Results & Data Results & Data Vital Signs (Past 12 Hours) Vital Signs Temp Pulse Pulse Resp BP BP Pulse Ox 05/28/24 00:24 103 H 02/05/24 23:27 119 H 24 98 02/05/24 23:06 37 C 117 H 20 93/70 L 97 02/05/24 23:00 120 H 20 93/70 L 97 02/05/24 23:00 118 H 26 H 97 02/05/24 23:00 93/70 L 02/05/24 22:30 132 H 22 97 02/05/24 22:30 113/79 02/05/24 22:08 119/83 02/05/24 22:08 131 H 26 H 97 02/05/24 22:07 131 H 13 97 02/05/24 22:00 98 02/05/24 21:30 128 H 25 H 98 02/05/24 21:30 114/80 02/05/24 21:09 98 02/05/24 21:00 132 H 25 H 136/87 97 02/05/24 20:52 37.4 C 25 H 144/99 H 98 02/05/24 20:52 134 H 25 H 98 02/05/24 20:52 98 02/05/24 20:34 80 02/05/24 20:22 37.4 C 106 H 25 H 144/99 H 94 O2 Del Method O2 Flow Rate 02/06/24 00:24 02/05/24 23:27 High Flow Nasal Cannula 5 02/05/24 23:06 High Flow Nasal Cannula 5 02/05/24 23:00 Nasal Cannula 5 02/05/24 23:00 02/05/24 23:00 02/05/24 22:30 02/05/24 22:30 02/05/24 22:08 02/05/24 22:08 02/05/24 22:07 02/05/24 22:00 Nasal Cannula 02/05/24 21:30 02/05/24 21:30 02/05/24 21:09 Nasal Cannula 5 02/05/24 21:00 Nasal Cannula 5 02/05/24 20:52 Nasal Cannula 6 02/05/24 20:52 Nasal Cannula 6 02/05/24 20:52 Nasal Cannula 6 02/05/24 20:34 02/05/24 20:22 Nasal Cannula 6 Diagnostic Findings Laboratory Results WBC 9.59 K/ul (4.8-10.8) 02/05/24 20: RBC 4.66 M/uL (4.70-6.10) L 02/05/24 20: Hgb 14.1 g/dl (14.0-18.0) 02/05/24 20: Hct 42.6 % (42.0-52.0) 02/05/24 20: MCV 91.4 fL (80.0-100.0) 02/05/24: MCH 30.3 pg (25.0-34.0) 02/05/24 20: MCHC 33.1 g/dL (32.0-36.0) 02/05/24: RDW Std Deviation 42.9 fL (36.4-46.3) 02/05/24: RDW Coeff of Hussain 12.7 % (11.5-14.5) 02/05/24: Plt Count 300 K/uL (130-400) 02/05/24: MPV 11.6 fL (9.4-12.4) 02/05/24: Immature Gran % (Auto) 0.2 % 02/05/24: Neut % (Auto) 80.6 % 02/05/24: Lymph % (Auto) 14.7 % 02/05/24: [place] % (Auto) 4.1 % 02/05/24: Eos % (Auto) 0.1 % 02/05/24: Baso % (Auto) 0.3 % 02/05/24: Neut # (Auto) 7.73 K/uL (1.40-6.50) H 02/05/24 20: Lymph # (Auto) 1.41 K/uL (1.20-3.40) 02/05/24: [place] # (Auto) 0.39 K/uL (0.11-0.59) 02/05/24: Eos # (Auto) 0.01 K/uL (0.00-0.50) 02/05/24: Baso # (Auto) 0.03 K/uL (0.00-0.20) 02/05/24: Immature Gran # (Auto) 0.02 K/uL (0.01-0.20) 02/05/24 20:33 PT 11.9 Seconds (9.0-12.0) 02/05/24 20: INR 1.1 (0.9-1.1) 02/05/24 20:33 VBG pH 7.35 (7.36-7.41) L 02/05/24 20:33 VBG pCO2 73 mmHg (38-50) H 02/05/24 20:33 VBG pO2 62 mmHg 02/05/24 20:33 VBG HCO3 40 mmol/L 02/05/24 20:33 VBG O2 Saturation 91.2 % 02/05/24 20:33 VBG Base Excess 11.4 mEq/L 02/05/24 20: Sodium 132 mmol/L (136-145) L 02/05/24 20:33 Potassium 4.2 mmol/L (3.5-5.1) 02/05/24 20: Chloride 90 mmol/L (98-107) L 02/05/24 20: Carbon Dioxide 38 mmol/L (21-32) H 02/05/24 20:33 Anion Gap 4 (3-11) 02/05/24 20:33 BUN 7 mg/dl (6-23) 02/05/24 20:33 Creatinine < 0.20 mg/dl (0.6-1.4) L 02/05/24 20:33 Est Cr Clr Drug Dosing 393.6 ml/min 02/05/24 20:33 Est GFR ( Amer) > 150.0 ml/min 02/05/24 20:33 Est GFR (Non-Af Amer) > 150.0 ml/min 02/05/24 20:33 BUN/Creatinine Ratio TNP 02/05/24 20:33 Glucose 148 mg/dl (70-99(Fasting)) H 02/05/24 20:33 Lactate 1.4 mmol/L (0.4-2.0) 02/05/24 20:33 Calcium 9.3 mg/dl (8.6-10.3) 02/05/24 20:33 Magnesium 1.8 mg/dl (1.7-2.4) 02/05/24 20:33 Total Bilirubin 0.5 mg/dl (0.2-1.0) 02/05/24 20:33 AST 17 U/L (13-39) 02/05/24 20:33 ALT 13 U/L (7-52) 02/05/24 20:33 Alkaline Phosphatase 90 U/L (34-104) 02/05/24 20:33 Troponin I High Sens 10.9 pg/ml (0-20) 02/05/24 20:33 B-Natriuretic Peptide 34 pg/ml (0-100) 02/05/24 20:33 Total Protein 6.9 gm/dl (6.0-8.3) 02/05/24 20:33 Albumin 3.6 gm/dl (3.4-5.0) 02/05/24 20: Globulin 3.3 gm/dl (2.5-4.0) 02/05/24 20:33 Albumin/Globulin Ratio 1.1 (0.9-2) 02/05/24 20:33 Procalcitonin 0.10 ng/ml (0-0.5) 02/05/24 20:33 Nasal Screen MRSA (PCR) Negative (Negative) 02/05/24 22:10 Adenovirus (PCR) Not Detected (NotDetected) 02/05/24 20:33 B. pertussis DNA (PCR) Not Detected (NotDetected) 02/05/24 20:33 B.parapertussis DNA PCR Not Detected (NotDetected) 02/05/24 20:33 C. pneumoniae DNA (PCR) Not Detected (NotDetected) 02/05/24 20:33 Coronavirus OC43 (PCR) Not Detected (NotDetected) 02/05/24 20:33 Coronavirus HKU1 (PCR) Not Detected (NotDetected) 02/05/24 20:33 Coronavirus 229E (PCR) Not Detected (NotDetected) 02/05/24 20:33 SARS-CoV-2 (PCR) Not Detected (NotDetected) 02/05/24 20:33 Coronavirus NL63 (PCR) Not Detected (NotDetected) 02/05/24 20:33 Human Metapneumovir PCR Not Detected (NotDetected) 02/05/24 20:33 Influenza Type A (PCR) Not Detected (NotDetected) 02/05/24 20:33 Influenza Type B (PCR) Not Detected (NotDetected) 02/05/24 20:33 M. pneumoniae (PCR) Not Detected (NotDetected) 02/05/24 20:33 Parainfluenza 1 (PCR) Not Detected (NotDetected) 02/05/24 20:33 Parainfluenza 2 (PCR) Not Detected (NotDetected) 02/05/24 20:33 Parainfluenza 3 (PCR) Not Detected (NotDetected) 02/05/24 20:33 Parainfluenza 4 (PCR) Not Detected (NotDetected) 02/05/24 20:33 RSV (PCR) Not Detected (NotDetected) 02/05/24 20:33 Entero/Rhino (PCR) Not Detected (NotDetected) 02/05/24 20:33 Impressions Chest CTA 02/05/24 21:36 Exam(s): CTA CHEST IV Amt: 104 ml opti 320 EXAM: CT Angiography Chest With Intravenous Contrast CLINICAL HISTORY: Reason for exam: PE. TECHNIQUE: Axial computed tomographic angiography images of the chest with intravenous contrast. CTDI is 20.09 mGy and DLP is 678.9 mGy-cm. Automated exposure control was utilized for the study. A dose lowering technique was utilized adhering to the principles of ALARA. MIP reconstructed images were created and reviewed. COMPARISON: 11/15/2023 FINDINGS: Pulmonary arteries: Unremarkable. No CT evidence of pulmonary embolism. Aorta: No acute findings. No thoracic aortic aneurysm. Lungs: Consolidation/collapse of the majority of the right lower lobe with debris-filled right lower lobe bronchi. Patchy pulmonary opacities within the posterior right upper lobe. There is debris within right and left mainstem bronchi. Pleural space: Unremarkable. No significant effusion. No pneumothorax. Heart: Unremarkable. No cardiomegaly. No significant pericardial effusion. No evidence of RV dysfunction. Bones/joints: No acute fracture. No dislocation. Soft tissues: Unremarkable. Lymph nodes: Unremarkable. No enlarged lymph nodes. Liver: 1.4 cm simple cyst within the medial inferior right lobe of the liver. IMPRESSION: 1. No CT evidence of pulmonary embolism. 2. Consolidation/collapse of the majority of the right lower lobe with debris-filled right lower lobe bronchi. 3. Patchy pulmonary opacities within the posterior right upper lobe. 4. Debris within right and left mainstem bronchi. Electronically signed by: Curt Pedraaz M.D. 02/05/24 22:28 PM ECG Additional Comments: ECG normal sinus rhythm rate 77. minimal voltage criteria for LVH, may be normal variant. Code Status & VTE Plan VTE Prophylaxis Plan VTE Prophylaxis will be ordered: Yes
[2024-02-06] MEDS ORDERED: ALBUT/IPRATROP 3MG/0.5MG NEB 3 ML VIAL INH PRN (03:13)
[2024-02-06] MEDS ORDERED: NITROGLYCERIN SL 0.4 MG/TAB TAB SL PRN (03:13)
[2024-02-06] MEDS: SODIUM CHLORIDE 0.9% 1,000 ML IV SCH (03:23)
[2024-02-06 04:12] LABS: Appearance Urine Clear (Clear); Bacteria Urine Automated None Seen (None Seen); Bilirubin Urine Negative (Negative); Blood Urine 3+ (Negative); Cast Urine Automated 0-2 /lpf (0-2); Color Urine Yellow; Epithelial Cell Urine Auto 0-2 /hpf (0-2); Glucose Urine UA Negative (Negative); Ketones Urine Negative (Negative); Leukocyte Esterase Urine Negative (Negative); Nitrite Urine Negative (Negative); Protein Urine Negative (Negative); RBC Urine Automated >20 /hpf (0-2); Specific Gravity Urine > 1.045 (1.000-1.030); Urobilinogen Urine Negative (Negative); WBC Urine Automated 0-5 /hpf (0-5); pH Urine 5.5 (4.5-7.5)
[2024-02-06 06:11] LABS: Basophils # (auto) 0.02 K/uL (0.00-0.20); Basophils % (auto) 0.3 %; Hematocrit (blood only) 39.2 % (42.0-52.0); Hemoglobin 12.4 g/dl (14.0-18.0); Immature Granulocytes # (auto) 0.01 K/uL (0.01-0.20); Immature Granulocytes % (auto) 0.1 %; Lymphocytes # (auto) 0.32 K/uL (1.20-3.40); Lymphocytes % (auto) 4.2 %; Mean Corpuscular Hemoglobin 29.4 pg (25.0-34.0); Mean Corpuscular Hgb Conc 31.6 g/dL (32.0-36.0); Mean Corpuscular Volume 92.9 fL (80.0-100.0); Mean Platelet Volume 11.3 fL (9.4-12.4); Monocytes # (auto) 0.49 K/uL (0.11-0.59); Monocytes % (auto) 6.4 %; Neutrophils # (auto) 6.83 K/uL (1.40-6.50); Platelet Count 205 K/uL (130-400); RDW Coefficient of Variation 12.9 % (11.5-14.5); RDW Standard Deviation 43.7 fL (36.4-46.3); Red Blood Count 4.22 M/uL (4.70-6.10); White Blood Count 7.67 K/ul (4.8-10.8)
[2024-02-06 06:26] LABS: Anion Gap 4 (3-11); Blood Urea Nitrogen 4 mg/dl (6-23); Calcium 8.2 mg/dl (8.6-10.3); Carbon Dioxide 36 mmol/L (21-32); Chloride 97 mmol/L (98-107); Creatinine Clr Calc Pharmacy 223.6 ml/min; Est GFR (African American) > 150.0 ml/min; Est GFR (Non-African American) > 150.0 ml/min; Glucose 118 mg/dl (70-99(Fasting)); Magnesium 1.6 mg/dl (1.7-2.4); Potassium 3.5 mmol/L (3.5-5.1); Sodium 137 mmol/L (136-145)
[2024-02-06] MEDS: PIPERACILLIN/TAZOBACTAM 4.5 GM in DEXTROSE 5% MINI-B 100 ML IV SCH (06:30)
--- NOTE | 2024-02-06 06:57 | Ultrasound Report ---
RIGHT LOWER EXTREMITY ARTERIAL DOPPLER ULTRASOUND CLINICAL HISTORY: cold feet, bluish discoloration. PVD? COMPARISON STUDY: No previous studies for comparison. TECHNIQUE: Bilateral lower extremity arterial Doppler ultrasound was ordered. Patient deferred imagin g of the left lower extremity. FINDINGS: Mild atherosclerotic plaque within the right lower extremity was noted with triphasic wavef orms within the right common femoral, profunda, superficial femoral, popliteal, anterior tibial, post erior tibial, dorsalis pedis and peroneal arteries. No elevated velocities were noted. Patient deferr ed imaging of the left lower extremity. IMPRESSION: 1. No evidence for a hemodynamically significant stenosis within the right lower extremity. Patent ri ght lower extremity vessels. Mild atherosclerotic plaque. 2. Patient deferred imaging of the left lower extremity. ACT 112: Negative or not required by law. Electronically signed by: Jules Cameron M.D. 02/06/2024 6:56 AM
--- NOTE | 2024-02-06 07:20 | XRay Report ---
XR chest 1V portable CLINICAL HISTORY: Dyspnea. COMPARISON STUDY: Chest CT November 15, 2023. Chest radiograph November 18, 2023. FINDINGS: There is no thorax. Trace right pleural effusion is present. Cardiomediastinal silhouette i s normal. There is no evidence for pulmonary edema. Extensive right lower lung airspace opacity has d eveloped. IMPRESSION: Interval development of extensive right lower lung airspace opacity which may reflect pne umonia or right lower lobe collapse. Underlying mucus plugging cannot be excluded. Radiographic follo w-up to ensure resolution is recommended. Bronchoscopy might be considered. ACT 112: Negative or not required by law. Electronically signed by: Jules Cameron M.D. 02/06/2024 7:19 AM
[2024-02-06] MEDS: ACETYLCYSTEINE 20% INHAL SOLN 4ML ***DISPENSED BY RESP. INH SCH (07:23)
[2024-02-06] MEDS: ALBUT/IPRATROP 3MG/0.5MG NEB 3 ML VIAL NEB SCH (07:23)
[2024-02-06] MEDS: SODIUM CHLOR 7% 4 ML NEB ONE (07:37)
[2024-02-06] MEDS: SODIUM CHLOR 7% 4 ML NEB NEB SCH (07:37)
--- NOTE | 2024-02-06 08:28 | Electrocardiogram Report ---
Test Reason : Blood Pressure : / mmHG Vent. Rate : 077 BPM Atrial Rate : 077 BPM P-R Int : 114 ms QRS Dur : 086 ms QT Int : 314 ms P-R-T Axes : 049 062 087 degrees QTc Int : 355 ms Poor data quality, interpretation may be adversely affected Normal sinus rhythm Minimal voltage criteria for LVH, may be normal variant ( Sokolow-Zapata ) Abnormal ECG When compared with ECG of 14-NOV-2023 19:24, QT has shortened Confirmed by Keith Sanz ([id number]) on 02/06/2024 8:28:22 AM Referred By: REFERRED SELF Confirmed By:Keith Sanz
[2024-02-06] MEDS ORDERED: ETOMIDATE 2 MG/ML 20 ML VIAL IV ONE (08:35)
[2024-02-06] MEDS ORDERED: fentaNYL citrate PF 100 MCG/2 ML VIAL IV ONE (08:35)
--- NOTE | 2024-02-06 08:56 | Critical Care Consultation ---
Date of Consultation February 06, 2024 Assessment & Plan (1) Acute hypercapnic respiratory failure: (2) Aspiration pneumonia: (3) Acute hypoxemic respiratory failure: (4) GERD (gastroesophageal reflux disease): (5) ALS (amyotrophic lateral sclerosis): (6) Aspiration into respiratory tract: (7) Pneumonia: (8) History of pulmonary embolism: Plan Assessment: Pt is a 48 yo male with a hx of ALS who is wheelchair bound with quadriplegia, IBS, GERD, ADD, anxiety and depression, and hx DVT and PE who presents to the hospital on 02/04 for several days of worsening SOB and respiratory distress admitted to the ICU for ongoing respiratory distress and aspiration requiring intubation and mechanical ventilation. Critical care indication: Need for mechanical ventilation Plan: Neurologic CAM ICU unable to obtain due to AMS, now intubated Sedation: fentanyl Analgesia: none at this time Cardiac Pressures today have been largely okay but border on hypotension, noted to have sinus tachycardia through the night into today. Last echo in our system is 2019 with EF 50-55% with right ventricular and IVC dilation. US negative for DVT and CTA neg for PE. Takes eliquis BID for hx PE/DVT. Respiratory Has hx of ALS. CXR showed RLL opacity and chest CTA shows no PE but patchy opacities in right upper lobe with debris in right lower lobe most consistent with aspiration pneumonia. With worsening resp distress and worsened CO2 retention per ABG, pt likely needs intubated and ventilated and may need a bronchoscopy. Pending 's decision as pt is altered. Speech consulted. Per 's request, did call his [facility] neurologist Dr. Hauser. He expressed his concern over the case and that last FEV in Jul was 22%. States they did start to have the conversation about advanced directives at that time and pt and his did not come to a definitive consensus on plan at that point. Dr. Hauser did call and then called me back to state that after his discussion with her, she would like him to be full code and if trial of bipap fails she would like him to be intubated and ventilated and she is okay with tracheostomy if needed at this time. He discussed with her the low probability that he would be extubated given overall poor lung function prior to this episode. came into the ICU and agreeable still with plan to intubate if bipap fails to improve his respiratory status and he will remain full code at this time. Pt was intubated around 11:35 am today. Bronchoscopy done at the same time. See procedure note for more details. Gastrointestinal NPO as he is now intubated. Will insert NG tube and start tube feeds. Will like need to consult GI for PEG tube. Renal/electrolytes Cr on admission <0.20. No acute concerns, will monitor electrolytes daily and replete as needed. Genitourinary No concerns at this time, walters catheter for strict I/O's Endocrine Blood sugars stable. No concerns at this time. Hematologic Hgb 14.1 on admission, 12.4 today likely delusional, no obvious sources of bleeding, will trend CBC daily. Infectious disease No WBC count and afebrile but CTA shows large right lower lobe opacity, seems most consistent with aspiration +/- pneumonia component. Will continue zosyn. Integumentary No concerns at this time Lines/access PIV, walters Prophylaxis DVT ppx: home eliquis to be held today, may start heparin later today or tomorrow GI ppx: IV protonix Thank you the opportunity to participate in this patient's care. Please see attending documentation for further recommendations. Supervising Physician Co-Signing Physician Notes Patient seen and examined with the resident physician. Agree with the assessment and plan aside for any additions/exceptions noted: Patient was seen on pulmonary consult service with my resident physician. He appeared obtunded and had evidence of worsening hypotension. We brought him down to the ICU and intubated him with consent of the patient's . We had extensive discussions with her and the patient's neurologist from [facility] who indicated that he agrees that he would unlikely be extubated bowl and would likely need a tracheostomy if aggressive measures were pursued. He has evidence of extensive right lower lobe pneumonia likely from aspiration pneumonia. I performed a bronchoscopy and send cultures. He now has some worsening hypotension likely related to sedation, positive pressure and septic shock. He is currently on phenylephrine. Will continue with vasopressor support to maintain maps above 65. Will likely need to transition to Levophed as his heart rate has improved after intubation. Continue sedation with p ropofol and fentanyl. Will insert OG tube and start tube feeds. Will involve palliative care in ongoing discussions. Will likely need to pursue a tracheostomy. Will continue with Zosyn and follow culture data from bronchoscopy. MRSA screen was negative. On exam the patient was obtunded. Rhonchorous breath sounds. ABGs were consistent with worsening hypercapnic respiratory failure despite BiPAP support. Patient was intubated with a size 8.0 endotracheal tube. History of Present Illness Reason for Consultation: Aspiration pneumonia, respiratory distress Requesting Physician: Dr. Debbie Tesfaye Attending Physician: Ajit Goff MD History of Present Illness Pt is a 48 yo male with a hx of ALS who is wheelchair bound with quadriplegia, IBS, GERD, ADD, anxiety and depression, and hx DVT and PE who presents to the hospital on 02/04 for several days of worsening SOB and respiratory distress. Saw pt this morning but he appeared in resp distress and would only respond to some questions with yes or no but was largely very lethargic and ill appearing stating "I can't breathe." Otherwise, no other meaningful history could be obtained. Very uncomfortable appearing. Per , normally he is alert and able to converse and usually eats per mouth. No known episode of aspiration the last few days but he does have some reflux. Allergies Allergy/AdvReac Type Severity Reaction Status Date / Time tramadol AdvReac Unknown GI Verified 02/05/24 22:52 discomfort Home Medications Medication Instructions Recorded Confirmed Type escitalopram oxalate 20 mg tablet 20 mg PO QAM 01/31/19 02/05/24 History omeprazole 20 mg capsule,delayed 20 mg PO QAM 01/31/19 02/05/24 History release apixaban 5 mg tablet (Eliquis) 5 mg PO BID 11/19/20 02/05/24 History ipratropium 0.5 mg-albuterol 3 mg 3 ml inhalation Q6H PRN WHEEZING 07/25/23 02/05/24 History (2.5 mg base)/3 mL nebulization OR SOB soln ondansetron 4 mg disintegrating 4 mg PO Q6H PRN nausea and 07/25/23 02/05/24 Rx tablet vomiting #14 tabs ergocalciferol (vitamin D2) 1,250 50,000 unit PO Q7D #7 caps 08/17/23 02/05/24 Rx mcg (50,000 unit) capsule gabapentin 300 mg capsule 300 mg PO TID 11/14/23 02/05/24 History mirtazapine 15 mg tablet 15 mg PO HS 11/14/23 02/05/24 History clonazepam 0.5 mg tablet 0.25 - 0.5 mg PO HS 02/05/24 02/05/24 History dextroamphetamine-amphetamine 15 15 mg PO TID 02/05/24 02/05/24 History mg tablet scopolamine base 1 mg over 3 days 1 patch topical [id number] 02/05/24 02/05/24 History transdermal patch Patient History Medical History COVID-19 History of pulmonary embolism ADD (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 GERD (gastroesophageal reflux disease) ALS (amyotrophic lateral sclerosis) Surgical History History of vasectomy H/O rhinoplasty S/P left knee arthroscopy Family History Father Pulmonary embolism Mother Hypertension Social History Smoking Status: Never smoker Second Hand Exposure: No; Do You Dip or Chew Tobacco: No; Tobacco Cessation Education Requested by Patient: No Hx Alcohol Use: No Hx Substance Use: No Preferred Language: Armenian Communication Ability: Effective Aerospace Stress Engineer Required: No Beliefs That Will Affect Care: None marital status: Current Living Situation: Spouse current occupational status: employed Other Information That Helps Us Care for You: No Feels Safe at Home: Yes Safety Concerns: Feels Safe At This Time Assistive Devices: Wheelchair Review of Systems Review of Systems: All systems reviewed & are unremarkable except as noted in HPI & below Physical Exam Physical Exam: General: Groggy and ill appearing, appears uncomfortable with occasional grimaces does not answer questions aside from occasional yes/no HEENT: Normocephalic, atraumatic, Resp: Increased work of breathing with resp distress noted, Cardio: Regular rhythm but tachycardic, no murmurs GI: Soft and nontender, nondistended, bowel sounds active Skin: Warm, dry, no rashes on visible skin Neuro: Flaccid upper and lower extremities Results & Data Results & Data Vital Signs (Past 12 Hours) Vital Signs Temp Pulse Pulse Resp BP BP Pulse Ox 02/06/24 07:35 37.2 C 112 H 16 108/69 98 02/06/24 07:23 112 H 22 97 02/06/24 04:56 100 02/06/24 03:25 36.6 C 101 H 18 117/79 100 02/06/24 03:12 102 H 02/06/24 03:10 02/06/24 02:30 104 H 18 102/72 99 02/06/24 01:30 104 H 15 105/71 99 02/06/24 01:00 105 H 16 106/75 98 02/06/24 00:24 103 H 02/05/24 23:27 119 H 24 98 02/05/24 23:06 37 C 117 H 20 93/70 L 97 02/05/24 23:00 120 H 20 93/70 L 97 02/05/24 23:00 118 H 26 H 97 02/05/24 23:00 93/70 L 02/05/24 22:30 132 H 22 97 02/05/24 22:30 113/79 02/05/24 22:08 119/83 02/05/24 22:08 131 H 26 H 97 02/05/24 22:07 131 H 13 97 02/05/24 22:00 98 02/05/24 21:30 128 H 25 H 98 02/05/24 21:30 114/80 02/05/24 21:09 98 02/05/24 21:00 132 H 25 H 136/87 97 O2 Del Method O2 Flow Rate 02/06/24 07:35 Nasal Cannula 2 02/06/24 07:23 Nasal Cannula 3 02/06/24 04:56 Nasal Cannula 2 02/06/24 03:25 Nasal Cannula 4 02/06/24 03:12 02/06/24 03:10 Nasal Cannula 4 02/06/24 02:30 Nasal Cannula 5 02/06/24 01:30 02/06/24 01:00 02/06/24 00:24 02/05/24 23:27 High Flow Nasal Cannula 5 02/05/24 23:06 High Flow Nasal Cannula 5 02/05/24 23:00 Nasal Cannula 5 02/05/24 23:00 02/05/24 23:00 02/05/24 22:30 02/05/24 22:30 02/05/24 22:08 02/05/24 22:08 02/05/24 22:07 02/05/24 22:00 Nasal Cannula 02/05/24 21:30 02/05/24 21:30 02/05/24 21:09 Nasal Cannula 5 02/05/24 21:00 Nasal Cannula 5 Resident Activity Tracking Resident Involvement: Resident Care Provided Care Provided: Adult [facility] Medicine
[2024-02-06 09:18] LABS: Base Excess ABG 6.1 mEq/L (-9-1.8); HCO3 ABG 36 mmol/L (19-24); Oxygen Saturation ABG 99.3 % (90-95); PCO2 ABG 83 mmHg (35-46); PO2 ABG 104 mmHg (80-95); pH ABG 7.25 (7.35-7.45)
[2024-02-06 09:19] LABS: Allen Test Pos (Pos)
[2024-02-06] MEDS: DEXTROAMPHETAMINE/AMPHETAMIME IR 5 MG TAB PO SCH (09:50)
[2024-02-06] MEDS: DEXTROAMPHETAMINE/AMPHETAMINE IR 10 MG TAB PO SCH (09:51)
[2024-02-06] MEDS: ESCITALOPRAM OXALATE 20 MG TAB PO SCH (10:43)
[2024-02-06] MEDS: APIXABAN 5 MG TABLET PO SCH (10:43)
[2024-02-06] MEDS: GABAPENTIN 300 MG CAP PO SCH (10:43)
[2024-02-06] MEDS: PANTOprazole 40 MG TAB PO SCH (10:44)
[2024-02-06] MEDS ORDERED: STAT IV Infusion **Titration per Protocol STA ×4 (11:15→12:54)
[2024-02-06 11:20] LABS: iSTAT Allen Test Pass; iSTAT Art Bld Gas pCO2 Correct 72 mmHg (35-46); iSTAT Art Bld Gas pH Corrected 7.295 (7.35-7.45); iSTAT Arterial Blood Gas HCO3 35 meg/L (19-24); iSTAT Arterial Blood Gas pCO2 73 mmHg (35-46); iSTAT Arterial Blood Gas pH 7.29 (7.35-7.45); iSTAT Arterial Blood Gas pO2 107 mmHg (80-95); iSTAT Arterial Blood Gas pO2 C 106; iSTAT Carbon Dioxide 38 mmol/L (24-31); iSTAT FiO2 50 %; iSTAT Hematocrit 37 % (42-52); iSTAT Hemoglobin 12.6 g/dl (14.0-18.0); iSTAT Potassium 3.1 mmol/L (3.3-5.0); iSTAT Site R Radial; iSTAT Sodium 138 mmol/L (135-144)
[2024-02-06] MEDS: NOREPINEPHRINE/D5W 4 MG/250 ML IV ONE (11:30)
[2024-02-06] MEDS: PHENYLEPHRINE HCL 25 MG/250 ML NSS IV ONE (11:30)
[2024-02-06] MEDS: PLASMA-LYTE A 1,000 ML IV SCH (11:32)
[2024-02-06] MEDS: PHENYLEPHRINE/NSS 25 MG/250 ML BAG IV SCH (11:32)
[2024-02-06] MEDS: RAPID SEQUENCE INDUCTION BAG ONE (11:35)
[2024-02-06] MEDS: fentaNYL citrate 2,500 MCG/250 ML BAG IV ONE (11:44)
[2024-02-06] MEDS: fentaNYL citrate 2,500 MCG/250 ML BAG IV SCH (11:44)
--- NOTE | 2024-02-06 11:46 | Procedure Note ---
Procedure Note Date of Service February 06, 2024 Note INTUBATION PROCEDURE NOTE: Dr. Rodrick Burroughs A time-out was completed verifying correct patient, procedure, site, positioning. Patient was evaluated and required intubation for hypoxemic and hypercapnic respiratory failure with GCS of 3. Sedative agent used: 20 mg etomidate Paralysis agent used: None Consent was signed by the patient's as she is the POA. Patient unable to give consent as he is currently obtunded. Number of attempts: 1 Grade view: Not applicable The patient was prepared in the appropriate fashion. Sedation was achieved utilizing etomidate. The patient was easily ventilated using [id number] to achieve adequate oxygenation. A 8.0 Congolese endotracheal tube was placed under GlideScope to 26 cm at the lip. The stylette was removed and balloon was inflated with 10mL of air. Appropriate Colorimetric change was appreciated. Bilateral breath sounds were heard without air sounds in the abdomen. Post Intubation Chest X-ray ordered Patient tolerated the procedure well and there were no immediate complications. Coding CPT Codes Resuscitation - Resuscitation: 67503 Endotracheal Intubation, emergency ([id number]) [facility] [place]arges) Resuscitation Resuscitation: 62955 Endotracheal Intubation, emergency
[2024-02-06] MEDS: fentaNYL BOLUS from BAG IV PRN (11:50)
--- NOTE | 2024-02-06 11:52 | Procedure Note ---
Procedure Note Date of Service February 06, 2024 Note PREOPERATIVE DIAGNOSIS: Right lower lobe collapse and hypoxic/hypercapnic respiratory failure POSTOPERATIVE DIAGNOSIS: Same as above PROCEDURE PERFORMED: Flexible fiberoptic bronchoscopy with bronchial washings of the right lower lobe COMPLICATIONS: None. INDICATION: Evaluate right lower lobe clot PROCEDURE: After the patient was successfully intubated with a size 8 oh tube. Endotracheal tube adapter was placed. Patient was preoxygenated with 100% FiO2 via the ventilator. Consent signed by the patient's who is the POA. Timeout performed immediately prior to the procedure. Scope was introduced via the endotracheal tube adapter. Endotracheal tube was observed to be in adequate position above the kun. Kun was sharp. Trachea appeared normal. Bilateral tracheobronchial tree was inspected. Thick mucoid impaction was noted in the right lower lobe posterior segment. 120 mL's was instilled with sequential aliquots of saline. Fluid was aspirated back. This will be sent for culture and cytology. The left-sided airways were evaluated as well which appeared normal. The scope was withdrawn to the level of the kun. No obvious bleeding or secretions were noted. The scope was then completely withdrawn. Patient tolerated procedure well. Please follow-up cultures from right lower lobe washings and cytology. Coding CPT Codes Pulmonary/Thoracic - Pulmonary and Thoracic: 30727 Dx bronchoscopy/wash ([id number]) [facility] [place] Procedure Codes (Charges) Pulmonary/Thoracic Procedure 1: Pulmonary and Thoracic: 13635 Dx bronchoscopy/wash
--- NOTE | 2024-02-06 11:54 | Communication Note ---
Date of Service: February 06, 2024 CRITICAL CARE TIME - I have personally spent 51 minutes of critical care time in the direct management of this patient. This is a life/limb threatening event. This includes time spent evaluating patient, direct bedside care, chart review, placing orders, interpretation of diagnostic studies, discussion with consultants, patient, and family members, as well as other required patient management activities. This time is exclusive of all separately billable procedures, and teaching time and separate from and in addition to any other critical care service time. Coding Level of Care Code 84166 CRITICAL CARE 1ST 30-74M
[2024-02-06] MEDS: HYDROCORTISONE SOD 100 MG in SYRINGE 0 ML IV STA (12:13)
[2024-02-06] MEDS: PROPOFOL IV EMULSION 10 MG/ML 100 ML VIAL IV ONE (12:14)
[2024-02-06] MEDS: propofoL 1,000 MG/100 ML VIAL IV SCH (12:14)
--- NOTE | 2024-02-06 12:18 | XRay Report ---
SINGLE VIEW CHEST CLINICAL HISTORY: Intubation. FINDINGS: An AP, portable, upright chest radiograph is compared to chest x-ray and chest CT dated 01/10. The examination is degraded by portable technique and patient rotation. An endotracheal tube has been placed. The tip projects approximately 5 cm above the kun. The cardiomediastinal silhoue tte is unremarkable. There is dense airspace consolidation at the right lung base with a small right pleural effusion. Mild patchy airspace consolidation is noted in the right upper lobe. The left lung appears clear. No pneumothorax is seen. The bony thorax is grossly intact. IMPRESSION: 1. An endotracheal tube has been placed as above. 2. Dense airspace consolidation at the right lung base and a small right pleural effusion is similar to previous. This is typical for pneumonia and radiographic follow-up to resolution is recommended.. ACT 112: Negative or not required by law. Electronically signed by: Jose Ellington M.D. 02/06/2024 12:17 PM
--- NOTE | 2024-02-06 12:44 | Billing Data ---
Date of Service February 06, 2024 CRITICAL CARE TIME - I have personally spent 51 minutes of critical care time in the direct management of this patient. This is a life/limb threatening event. This includes time spent evaluating patient, direct bedside care, chart review, placing orders, interpretation of diagnostic studies, discussion with consultants, patient, and family members, as well as other required patient management activities. This time is exclusive of all separately billable procedures, and teaching time and separate from and in addition to any other critical care service time. Coding Level of Care Code 49797 CRITICAL CARE 1ST 30-74M
[2024-02-06 12:51] LABS: iSTAT Allen Test Pass; iSTAT Art Bld Gas pCO2 Correct 38 mmHg (35-46); iSTAT Art Bld Gas pH Corrected 7.527 (7.35-7.45); iSTAT Arterial Blood Gas HCO3 32 meg/L (19-24); iSTAT Arterial Blood Gas pCO2 38 mmHg (35-46); iSTAT Arterial Blood Gas pH 7.53 (7.35-7.45); iSTAT Arterial Blood Gas pO2 103 mmHg (80-95); iSTAT Arterial Blood Gas pO2 C 103; iSTAT Carbon Dioxide 33 mmol/L (24-31); iSTAT FiO2 50 %; iSTAT Hematocrit 34 % (42-52); iSTAT Hemoglobin 11.6 g/dl (14.0-18.0); iSTAT Site R Radial; iSTAT Sodium 135 mmol/L (135-144)
--- NOTE | 2024-02-06 13:01 | Communication Note ---
Date of Service: February 06, 2024 Pall Med Note Consult received/appreciated and chart reviewed. D/w CCM: several discussions with re code/GOC/advancing serious illness which included d/w theiir OS ALS attending. We agreed I will see pt tomorrow as is presently overwhelmed by intensity of the situation. patient is in septic shock. There is a chance he may further acutely decline and surviving this admission might not happen. I am available to engage quickly by phone or zoom/telemed later today/overnight if needed, please page me. Otherwise we agreed I will see pt tomorrow, 02/06. Thank you for allowing us to participate in the ongoing care of this patient. Please don't hesitate to call or page with any additional concerns. Doron Elizalde Pall[facility]
[2024-02-06] MEDS: NOREPINEPHRINE/D5W 4 MG/250 ML PLCT IV SCH (13:04)
--- NOTE | 2024-02-06 13:10 | Communication Note ---
Date of Service: February 06, 2024 Patient was transferred to the ICU after evaluation by the kiln cleaner. He was intubated and underwent bronchoscopy Patient was then started on vasopressors for septic shock Currently sedated with propofol Palliative consulted for goals of care discussion. Plan to continue Zosyn and follow culture from bronchoscopy. MRSA nares negative On physical examination; Constitutional: Intubated; on mechanical ventilation Respiratory: Bilateral mechanical breath sound Cardiovascular: RRR, no murmur, no edema Chest: normal inspection of chest Abdomen: Soft, nondistended Skin: no rashes, warm and dry normal turgor Neurologic: Sedated Assessment/plan Aspiration pneumonia Septic shock Acute hypoxic respiratory failure Patient presented with shortness of breath for last few days CTA chest on admission showed collapse of majority of right lower lobe with debris-filled right lower lobe bronchi. MRSA nares negative Patient currently on mechanical ventilation; vent management as per sod farmer Continue on Zosyn; follow-up on sputum culture Continue hemodynamic support with vasopressors Continue other home meds as appropriate Please note the above document was generated using voice recognition software. It may contain grammatical, syntax or spelling errors. Any formal questions or concerns about the content, text or information contained within the body of this dictation should be directly addressed to the provider for clarification
--- NOTE | 2024-02-06 13:21 | XRay Report ---
SINGLE VIEW CHEST CLINICAL HISTORY: Enteric tube placement. FINDINGS: An AP, portable, upright chest radiograph is compared to chest x-ray performed earlier the same day 02/06/2024 and correlated with chest CT dated 02/05/2024. The examination is degraded by darryl ble technique and patient rotation. An endotracheal tube is unchanged in position. An enteric tube king s been placed. The tip projects below the diaphragm over the proximal stomach. The cardiomediastinal silhouette is unremarkable. There is dense airspace consolidation at the right lung base with a small right pleural effusion. Mild patchy airspace consolidation is noted in the right upper lobe. Questio n developing airspace consolidation at the left lung base. No pneumothorax is seen. The bony thorax i s grossly intact. IMPRESSION: 1. Endotracheal and enteric tubes are in place as above. 2. Dense airspace consolidation at the right lung base and a small right pleural effusion is similar to previous. Question developing airspace consolidation at the left lung base. These findings are typ ical for pneumonia and radiographic follow-up to resolution is recommended. ACT 112: Negative or not required by law. Electronically signed by: Jose Ellington M.D. 02/06/2024 1:20 PM
[2024-02-06 13:52] LABS: Fluid Mono/Macrophage 7 %; Lymphocyte Body Fluid Man 1 %; Neutrophil Body Fluid Man 92 %
[2024-02-06] MEDS: POTASSIUM CHLORIDE / WTR 10 MEQ/100 ML PLCT IV SCH (13:56)
[2024-02-06] MEDS: POTASSIUM CHLORIDE 20 MEQ/15 ML UDC PO STA (13:56)
[2024-02-06] MEDS: MAGNESIUM SULFATE / D5W 1 GM/100 ML BAG IV SCH (13:56)
[2024-02-06] MEDS: ENOXAPARIN INJ 40 MG/0.4 ML SYR SQ ONE (14:12)
[2024-02-06] MEDS: GABAPENTIN 250 MG/5 ML 470 ML BTL PO SCH (14:13)
[2024-02-06] MEDS ORDERED: Nursing to Pharmacy Communication SCH (15:30)
[2024-02-06] MEDS: ACETAMINOPHEN 1,000 MG/100 ML VIAL IV PRN (16:55)
[2024-02-06] MEDS: PLASMA-LYTE A 500 ML IV ONE (17:11)
[2024-02-06] MEDS: PANTOprazole 80 MG in DEXTROSE 5% 100 ML IV STA (17:44)
[2024-02-06] MEDS: HYDROCORTISONE SOD 50 MG in SYRINGE 0 ML IV SCH (17:45)
[2024-02-06] MEDS: TUBE FEEDING WATER FLUSH OG SCH (17:55)
[2024-02-06] MEDS: PANTOprazole 40 MG in SYRINGE 0 ML IV SCH (20:39)
[2024-02-06] MEDS: MIRTAZAPINE TAB 15 MG TAB PO SCH (20:39)
[2024-02-06] MEDS: clonazePAM 0.25 MG OD TAB PO SCH (20:41)
[2024-02-07 05:28] LABS: Anion Gap 8 (3-11); Calcium 8.1 mg/dl (8.6-10.3); Carbon Dioxide 28 mmol/L (21-32); Chloride 97 mmol/L (98-107); Magnesium 2.2 mg/dl (1.7-2.4); Potassium 3.8 mmol/L (3.5-5.1); Sodium 133 mmol/L (136-145)
[2024-02-07 05:45] LABS: Blood Urea Nitrogen 4 mg/dl (6-23); Creatinine Clr Calc Pharmacy 392.9 ml/min; Est GFR (African American) > 150.0 ml/min; Est GFR (Non-African American) > 150.0 ml/min; Glucose 124 mg/dl (70-99(Fasting)); Phosphorus 1.3 mg/dl (2.5-4.9)
[2024-02-07] MEDS ORDERED: POTASSIUM PHOS 3 MMOL/1 ML INFUSION IV STA (05:46)
[2024-02-07] MEDS: POTASSIUM PHOSPHATE 21 MMOL in SODIUM CHLORIDE 0.9% 500 ML IV ONE (06:20)
--- NOTE | 2024-02-07 06:56 | Critical Care Progress Note ---
Date of Service February 07, 2024 Assessment & Plan (1) Acute hypoxemic respiratory failure: (2) GERD (gastroesophageal reflux disease): (3) ALS (amyotrophic lateral sclerosis): (4) Aspiration into respiratory tract: (5) Pneumonia: (6) History of pulmonary embolism: Plan Assessment: Pt is a 48 yo male with a hx of ALS who is wheelchair bound with quadriplegia, IBS, GERD, ADD, anxiety and depression, and hx DVT and PE who presents to the hospital on 02/04 for several days of worsening SOB and respiratory distress admitted to the ICU for ongoing respiratory distress and aspiration requiring intubation and mechanical ventilation. Critical care indication: Need for mechanical ventilation Need for vasopressor support 24 hour events: Stable overnight, continuing to wean down vent settings as tolerated. Also still requiring some levophed for blood pressure support. Noted to have been febrile from around 1:30 pm yesterday and until around 1:30 am last night. Did give dose of 100 mg hydrocortisone IV yesterday followed by 3 doses of q6h hydrocortisone 50 mg so far. Neurologic Spoke to pt's [facility] neurologist yesterday as pt has progressive neurologic disease ALS. They feel with his progressive functional decline that he would be unlikely to be extubated and taken off the vent successfully and will likely need a tracheostomy. He was wheelchair dependent prior to hospitalization. Sees [facility] neurologist Dr. Hauser [phone]. Palliative consulted and to see pt and his sometime today. Cardiac Pressures today have been largely okay but border on hypotension, noted to have sinus tachycardia through the night into today. Last echo in our system is 2019 with EF 50-55% with right ventricular and IVC dilation. US negative for DVT and CTA neg for PE. Takes eliquis BID for hx PE/DVT, on lovenox now for prophylaxis. Respiratory Has hx of ALS. On admission, CXR showed RLL opacity and chest CTA shows no PE but patchy opacities in right upper lobe with debris in right lower lobe most consistent with aspiration pneumonia. With worsening resp distress and worsened CO2 retention per ABG, pt was intubated yesterday and bronchoscopy done showing thick secretions only. At this time, understands it may be difficult or implausible to extubate him and she is okay with need for tracheostomy if needed. Question overall of if worsening resp status was truly due to asp pneumonia or due to progression of ALS with diaphragm involvement, likely a mixture of both. Will discuss likely need for tracheostomy with later today. Gastrointestinal To start tube feeds maybe tonight or tomorrow. Renal/electrolytes Cr on admission <0.20. No acute concerns, will monitor electrolytes daily and replete as needed. Repleting phosphorus this am. Genitourinary No concerns at this time, walters catheter for strict I/O's Endocrine Blood sugars stable. No concerns at this time. Hematologic Hgb 14.1 on admission, 12.4 yesterday to 11.8 today, no obvious sources of bleeding, will trend CBC daily. Infectious disease CTA on admission shows large right lower lobe opacity, seems most consistent with aspiration +/- pneumonia component. Pt did become febrile for about 12 hours yesterday. WBC count elevated in the setting of steroids. Will continue zosyn. Integumentary No concerns at this time Lines/access PIV, walters Prophylaxis DVT ppx: home Eliquis held, hold Lovenox since some blood noted in oral tube last night GI ppx: IV protonix Thank you the opportunity to participate in this patient's care. Please see attending documentation for further recommendations. Admission and Anticipated Discharge Date Admission Date: February 06, 2024 Supervising Physician Co-Signing Physician Notes Patient seen and examined with the resident physician. Agree with the assessment and plan aside for any additions/exceptions noted: Hemodynamic parameters improving and pressors are weaning down. Patient remains on low doses of fentanyl and propofol as needed. We did do an extended spontaneous breathing trial and the patient became very short of breath. Negative inspiratory force was only -3.8 and forced vital capacity was only 500 mL. Patient not a candidate for extubation. We had numerous discussions with the patient's and the patient regarding goals of care. Patient and reiterated that they would like the patient to remain a full code and are agreeable to proceeding with a tracheostomy as soon as tomorrow in light of the patient's advanced ALS and worsening neuromuscular weakness. Discussed with palliative care medicine as well who had a long discussion with the patient's . Otherwise, we will continue with broad-spectrum antibiotics and follow cultures from bronchoscopy. Hold tube feeds and anticoagulation until after tracheostomy is complete. I discussed with my colleague, Dr. Gunter will perform a percutaneous tracheostomy tomorrow. Subjective Today, pt remains intubated and sedated. He does open eyes to verbal stimuli briefly and otherwise appears comfortable this morning, no acute distress. Shakes his head no when asked if he is in pain. Review of Systems Review of Systems: Unable to obtain per HPI. Physical Exam Physical Exam: General: Intubated and sedated. Does open eyes briefly to verbal stimuli and nods yes or no to questions, otherwise appears comfortable HEENT: Normocephalic, atraumatic, Resp: On vent, rhonchi noted throughout lung orozco Cardio: Regular rhythm and rhythm, no murmurs GI: Soft and nontender, nondistended, bowel sounds hypoactive Skin: Warm, dry, no rashes on visible skin Results & Data Results & Data Vital Signs (Past 12 Hours) Vital Signs Temp Pulse Pulse Resp BP BP Pulse Ox 02/07/24 06:30 74 16 98/63 L 98 02/07/24 06:00 81 16 101/65 99 02/07/24 05:00 37.3 C 79 16 104/67 95 02/07/24 04:30 37.4 C 77 16 104/67 98 02/07/24 04:00 37.4 C 81 16 101/63 100 02/07/24 03:30 37.5 C 81 16 104/64 100 02/07/24 03:00 37.4 C 75 16 102/67 99 02/07/24 03:00 02/07/24 02:52 16 02/07/24 02:30 37.4 C 74 16 100/67 99 02/07/24 02:00 37.5 C 74 16 107/69 99 02/07/24 01:30 37.6 C H 65 16 102/66 98 02/07/24 01:00 37.6 C H 73 16 109/72 100 02/07/24 00:30 37.7 C H 75 16 98/65 L 99 02/07/24 00:00 37.7 C H 82 16 97/65 L 99 02/06/24 23:41 88 16 98 02/06/24 23:30 37.9 C H 86 16 89/62 L 98 02/06/24 23:00 38.0 C H 90 16 95/64 L 100 02/06/24 23:00 02/06/24 22:30 38.1 C H 89 16 94/63 L 98 02/06/24 22:00 38.1 C H 87 16 98/66 L 99 02/06/24 21:30 38.2 C H 85 17 89/58 L 99 02/06/24 21:00 38.2 C H 87 16 114/73 100 02/06/24 20:45 38.2 C H 73 16 97/65 L 99 02/06/24 20:30 38.3 C H 83 16 101/67 99 02/06/24 20:00 38.3 C H 82 16 98/64 L 99 02/06/24 20:00 02/06/24 19:55 16 02/06/24 19:45 38.3 C H 90 15 101/70 100 02/06/24 19:30 38.3 C H 86 16 96/63 L 99 02/06/24 19:15 38.3 C H 83 16 90/62 L 99 02/06/24 19:14 02/06/24 19:00 38.3 C H 84 16 93/62 L 99 O2 Del Method FiO2 02/07/24 06:30 Mechanical Vent 40 02/07/24 06:00 Mechanical Vent 40 02/07/24 05:00 Mechanical Vent 40 02/07/24 04:30 Mechanical Vent 40 02/07/24 04:00 Mechanical Vent 40 02/07/24 03:30 Mechanical Vent 40 02/07/24 03:00 Mechanical Vent 40 02/07/24 03:00 40 02/07/24 02:52 40 02/07/24 02:30 Mechanical Vent 40 02/07/24 02:00 Mechanical Vent 40 02/07/24 01:30 Mechanical Vent 40 02/07/24 01:00 Mechanical Vent 40 02/07/24 00:30 Mechanical Vent 40 02/07/24 00:00 Mechanical Vent 40 02/06/24 23:41 40 02/06/24 23:30 Mechanical Vent 40 02/06/24 23:00 Mechanical Vent 40 02/06/24 23:00 40 02/06/24 22:30 Mechanical Vent 40 02/06/24 22:00 Mechanical Vent 40 02/06/24 21:30 Mechanical Vent 40 02/06/24 21:00 Mechanical Vent 40 02/06/24 20:45 Mechanical Vent 40 02/06/24 20:30 Mechanical Vent 40 02/06/24 20:00 Mechanical Vent 40 02/06/24 20:00 Mechanical Vent 40 02/06/24 19:55 40 02/06/24 19:45 Mechanical Vent 40 02/06/24 19:30 Mechanical Vent 40 02/06/24 19:15 Mechanical Vent 40 02/06/24 19:14 40 02/06/24 19:00 Mechanical Vent 40 Resident Activity Tracking Resident Involvement: Resident Care Provided Care Provided: [facility]
[2024-02-07 07:12] LABS: Basophils # (auto) 0.02 K/uL (0.00-0.20); Basophils % (auto) 0.2 %; Hematocrit (blood only) 34.6 % (42.0-52.0); Hemoglobin 11.8 g/dl (14.0-18.0); Immature Granulocytes # (auto) 0.12 K/uL (0.01-0.20); Immature Granulocytes % (auto) 0.9 %; Lymphocytes # (auto) 1.37 K/uL (1.20-3.40); Lymphocytes % (auto) 10.8 %; Mean Corpuscular Hemoglobin 29.8 pg (25.0-34.0); Mean Corpuscular Hgb Conc 34.1 g/dL (32.0-36.0); Mean Corpuscular Volume 87.4 fL (80.0-100.0); Mean Platelet Volume 11.7 fL (9.4-12.4); Monocytes # (auto) 0.92 K/uL (0.11-0.59); Monocytes % (auto) 7.2 %; Neutrophils # (auto) 10.31 K/uL (1.40-6.50); Neutrophils % (auto) 80.9 %; Platelet Count 252 K/uL (130-400); RDW Coefficient of Variation 12.6 % (11.5-14.5); RDW Standard Deviation 40.3 fL (36.4-46.3); Red Blood Count 3.96 M/uL (4.70-6.10); White Blood Count 12.74 K/ul (4.8-10.8)
--- NOTE | 2024-02-07 08:24 | XRay Report ---
XR chest 1V portable CLINICAL HISTORY: Intubation. COMPARISON STUDY: Chest CT February 05, 2024. Chest radiograph February 06, 2024 at 12:44 PM. FINDINGS: Tip of endotracheal tube is 3.9 cm above the kun. Tip of nasogastric tube is below the l ower aspect of this image but at least within the body of the stomach. There is no pneumothorax or pl eural effusion. Cardiomediastinal silhouette is normal. Right mid and right basilar airspace opacity persists. Left basilar opacity similar to prior exam. IMPRESSION: 1. Satisfactory positioning of the endotracheal tube. 2. No significant change in bilateral airspace opacities, greater within the right lung. ACT 112: Negative or not required by law. Electronically signed by: Jules Cameron M.D. 02/07/2024 8:22 AM
--- NOTE | 2024-02-07 08:31 | Hospitalist Progress Note ---
Date of Service February 07, 2024 Assessment & Plan (1) Acute dyspnea: Plan: 48-year-old male with past medical history significant for ALS, orthostatic hypotension, irritable bowel syndrome, GERD, attention deficit disorder without hyperactivity, history of DVT and PE, depression with anxiety, wheelchair-bound at baseline presenting with shortness of breath for the last few days. Acute Hypoxic respiratory Failure Septic Shock RLL collapse Aspiration Pneumonia Pt presenting with SOB CTA chest on admission showed collapse of majority of right lower lobe with concern for pneumonia MRSA nares negative Patient currently intubated, on mechanical ventilation in the ICU; vent management as per ad setter Underwent bronchoscopy, cultures pending Unable to be extubated in setting of progressive ALS (see below), tracheostomy tomorrow Continue on Zosyn; follow-up on cultures Was also in septic shock, continue hemodynamic support with vasopressors Goals of Care discussion- pt and desire full code status, tracheostomy Lower Extremity discoloration Asymptomatic Arterial Doppler with patent arteries on right, pt deferred on left extremity imaging. ALS quadriplegia in the setting of ALS and nonambulatory status On BiPAP while sleeping at home Goals of Care discussion as above Hx of DVT and PE on Eliquis, currently on hold for trach procedure History of attention deficit disorder without hyperactivity Depression with anxiety continue home meds GERD on omeprazole Neuropathy On gabapentin DVT prophylaxis: Eliquis currently on hold for trach procedure Diet: Tube feeds on hold until after trach procedure Disposition: currently in ICU Admission and Anticipated Discharge Date Admission Date: February 06, 2024 Subjective pt was seen with nursing at bedside. Intubated Review of Systems Review of Systems: Unobtainable due to endotracheal tube Physical Exam Physical Exam: General: laying in bed, intubated HEENT: intubated Results & Data Results & Data Vital Signs (Past 12 Hours) Vital Signs Temp Pulse Pulse Resp BP BP Pulse Ox 02/07/24 07:46 78 16 99 02/07/24 06:30 74 16 98/63 L 98 02/07/24 06:00 81 16 101/65 99 02/07/24 05:00 37.3 C 79 16 104/67 95 02/07/24 04:30 37.4 C 77 16 104/67 98 02/07/24 04:00 37.4 C 81 16 101/63 100 02/07/24 03:30 37.5 C 81 16 104/64 100 02/07/24 03:00 37.4 C 75 16 102/67 99 02/07/24 03:00 02/07/24 02:52 16 02/07/24 02:30 37.4 C 74 16 100/67 99 02/07/24 02:00 37.5 C 74 16 107/69 99 02/07/24 01:30 37.6 C H 65 16 102/66 98 02/07/24 01:00 37.6 C H 73 16 109/72 100 02/07/24 00:30 37.7 C H 75 16 98/65 L 99 02/07/24 00:00 37.7 C H 82 16 97/65 L 99 02/06/24 23:41 88 16 98 02/06/24 23:30 37.9 C H 86 16 89/62 L 98 02/06/24 23:00 38.0 C H 90 16 95/64 L 100 02/06/24 23:00 02/06/24 22:30 38.1 C H 89 16 94/63 L 98 02/06/24 22:00 38.1 C H 87 16 98/66 L 99 02/06/24 21:30 38.2 C H 85 17 89/58 L 99 02/06/24 21:00 38.2 C H 87 16 114/73 100 02/06/24 20:45 38.2 C H 73 16 97/65 L 99 O2 Del Method FiO2 02/07/24 07:46 40 02/07/24 06:30 Mechanical Vent 40 02/07/24 06:00 Mechanical Vent 40 02/07/24 05:00 Mechanical Vent 40 02/07/24 04:30 Mechanical Vent 40 02/07/24 04:00 Mechanical Vent 40 02/07/24 03:30 Mechanical Vent 40 02/07/24 03:00 Mechanical Vent 40 02/07/24 03:00 40 02/07/24 02:52 40 02/07/24 02:30 Mechanical Vent 40 02/07/24 02:00 Mechanical Vent 40 02/07/24 01:30 Mechanical Vent 40 02/07/24 01:00 Mechanical Vent 40 02/07/24 00:30 Mechanical Vent 40 02/07/24 00:00 Mechanical Vent 40 02/06/24 23:41 40 02/06/24 23:30 Mechanical Vent 40 02/06/24 23:00 Mechanical Vent 40 02/06/24 23:00 40 02/06/24 22:30 Mechanical Vent 40 02/06/24 22:00 Mechanical Vent 40 02/06/24 21:30 Mechanical Vent 40 02/06/24 21:00 Mechanical Vent 40 02/06/24 20:45 Mechanical Vent 40 Diagnostic Findings Chest X-Ray 02/05/24 20:34 XR chest 1V portable CLINICAL HISTORY: Dyspnea. COMPARISON STUDY: Chest CT November 15, 2023. Chest radiograph November 18, 2023. FINDINGS: There is no thorax. Trace right pleural effusion is present. Cardiomediastinal silhouette is normal. There is no evidence for pulmonary edema. Extensive right lower lung airspace opacity has developed. IMPRESSION: Interval development of extensive right lower lung airspace opacity which may reflect pneumonia or right lower lobe collapse. Underlying mucus plugging cannot be excluded. Radiographic follow-up to ensure resolution is recommended. Bronchoscopy might be considered. ACT 112: Negative or not required by law. Electronically signed by: Jules Cameron M.D. 02/06/2024 7:19 AM Chest CTA 02/05/24 21:36 Exam(s): CTA CHEST IV Amt: 104 ml opti 320 EXAM: CT Angiography Chest With Intravenous Contrast CLINICAL HISTORY: Reason for exam: PE. TECHNIQUE: Axial computed tomographic angiography images of the chest with intravenous contrast. CTDI is 20.09 mGy and DLP is 678.9 mGy-cm. Automated exposure control was utilized for the study. A dose lowering technique was utilized adhering to the principles of ALARA. MIP reconstructed images were created and reviewed. COMPARISON: 11/15/2023 FINDINGS: Pulmonary arteries: Unremarkable. No CT evidence of pulmonary embolism. Aorta: No acute findings. No thoracic aortic aneurysm. Lungs: Consolidation/collapse of the majority of the right lower lobe with debris-filled right lower lobe bronchi. Patchy pulmonary opacities within the posterior right upper lobe. There is debris within right and left mainstem bronchi. Pleural space: Unremarkable. No significant effusion. No pneumothorax. Heart: Unremarkable. No cardiomegaly. No significant pericardial effusion. No evidence of RV dysfunction. Bones/joints: No acute fracture. No dislocation. Soft tissues: Unremarkable. Lymph nodes: Unremarkable. No enlarged lymph nodes. Liver: 1.4 cm simple cyst within the medial inferior right lobe of the liver. IMPRESSION: 1. No CT evidence of pulmonary embolism. 2. Consolidation/collapse of the majority of the right lower lobe with debris-filled right lower lobe bronchi. 3. Patchy pulmonary opacities within the posterior right upper lobe. 4. Debris within right and left mainstem bronchi. Electronically signed by: Curt Pedraza M.D. 02/05/24 22:28 PM Duplex Scan Lower Extremity Artery 02/06/24 03:24 RIGHT LOWER EXTREMITY ARTERIAL DOPPLER ULTRASOUND CLINICAL HISTORY: cold feet, bluish discoloration. PVD? COMPARISON STUDY: No previous studies for comparison. TECHNIQUE: Bilateral lower extremity arterial Doppler ultrasound was ordered. Patient deferred imaging of the left lower extremity. FINDINGS: Mild atherosclerotic plaque within the right lower extremity was noted with triphasic waveforms within the right common femoral, profunda, superficial femoral, popliteal, anterior tibial, posterior tibial, dorsalis pedis and peroneal arteries. No elevated velocities were noted. Patient deferred imaging of the left lower extremity. IMPRESSION: 1. No evidence for a hemodynamically significant stenosis within the right lower extremity. Patent right lower extremity vessels. Mild atherosclerotic plaque. 2. Patient deferred imaging of the left lower extremity. ACT 112: Negative or not required by law. Electronically signed by: Jules Cameron M.D. 02/06/2024 6:56 AM Chest X-Ray 02/06/24 11:44 SINGLE VIEW CHEST CLINICAL HISTORY: Intubation. FINDINGS: An AP, portable, upright chest radiograph is compared to chest x-ray and chest CT dated 02/05/2024. The examination is degraded by portable technique and patient rotation. An endotracheal tube has been placed. The tip projects approximately 5 cm above the kun. The cardiomediastinal silhouette is unremarkable. There is dense airspace consolidation at the right lung base with a small right pleural effusion. Mild patchy airspace consolidation is noted in the right upper lobe. The left lung appears clear. No pneumothorax is seen. The bony thorax is grossly intact. IMPRESSION: 1. An endotracheal tube has been placed as above. 2. Dense airspace consolidation at the right lung base and a small right pleural effusion is similar to previous. This is typical for pneumonia and radiographic follow-up to resolution is recommended.. ACT 112: Negative or not required by law. Electronically signed by: Jose Ellington M.D. 02/06/2024 12:17 PM Chest X-Ray 02/06/24 12:00 SINGLE VIEW CHEST CLINICAL HISTORY: Enteric tube placement. FINDINGS: An AP, portable, upright chest radiograph is compared to chest x-ray performed earlier the same day 02/06/2024 and correlated with chest CT dated 02/05/2024. The examination is degraded by portable technique and patient rotation. An endotracheal tube is unchanged in position. An enteric tube has been placed. The tip projects below the diaphragm over the proximal stomach. The cardiomediastinal silhouette is unremarkable. There is dense airspace consolidation at the right lung base with a small right pleural effusion. Mild patchy airspace consolidation is noted in the right upper lobe. Question developing airspace consolidation at the left lung base. No pneumothorax is seen. The bony thorax is grossly intact. IMPRESSION: 1. Endotracheal and enteric tubes are in place as above. 2. Dense airspace consolidation at the right lung base and a small right pleural effusion is similar to previous. Question developing airspace consolidation at the left lung base. These findings are typical for pneumonia and radiographic follow-up to resolution is recommended. ACT 112: Negative or not required by law. Electronically signed by: Jose Ellington M.D. 02/06/2024 1:20 PM Chest X-Ray 02/07/24 07:00 XR chest 1V portable CLINICAL HISTORY: Intubation. COMPARISON STUDY: Chest CT February 05, 2024. Chest radiograph February 06, 2024 at 12:44 PM. FINDINGS: Tip of endotracheal tube is 3.9 cm above the kun. Tip of nasogastric tube is below the lower aspect of this image but at least within the body of the stomach. There is no pneumothorax or pleural effusion. Cardiomediastinal silhouette is normal. Right mid and right basilar airspace opacity persists. Left basilar opacity similar to prior exam. IMPRESSION: 1. Satisfactory positioning of the endotracheal tube. 2. No significant change in bilateral airspace opacities, greater within the right lung. ACT 112: Negative or not required by law. Electronically signed by: Jules Cameron M.D. 02/07/2024 8:22 AM
[2024-02-07] MEDS: ENOXAPARIN INJ 40 MG/0.4 ML SYR SQ SCH (08:52)
[2024-02-07] MEDS: ESCITALOPRAM OXALATE ORAL SOLN 20 MG/20 ML UDP NG SCH (08:54)
[2024-02-07] MEDS: SCOPOLAMINE 1 MG/72 HR TDSY PATCH TD SCH (08:54)
--- NOTE | 2024-02-07 09:28 | Palliative Care Consultation ---
Date of Consultation February 07, 2024 Assessment & Plan (1) Dyspnea and respiratory abnormalities: asp pna with resp failure now intubtaed d/t progressive ALS resp failure, last FEV1 22% Jul 2023. Followed by [facility] neurologist Dr. Hauser [phone] (2) Weakness generalized: (3) Advanced care planning/counseling discussion: ACP meeting w/pt Nellie Carver face to face at bedside for 45min, we were joined by Chaplain Parker. She tells me she and pt have been in discussions about his progressive illness and had had a few conversations with [facility] neurologist Dr. Hauser [phone]. 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 His daughter graduates [employer] this week and begins as freshman at [employer] this fall. Her tuition is sharply discounted through patient and his desire is to pursue all measures to live as long as possible to be able to keep working. is clear patient wants everything done and she adds, "we want to do everything we can to keep him living for as long as he can until the he is forced to take his last breath, forever and ever Amen." We discussed trach procedure with and steps that follow ie LTACH vs vent SNF. It is unclear if he will qualify for LTACH since he will not be liberated from vent. It is also unclear what home vent support options are available in this region - advised her care mgt will help further clarify the post hospital options. is clear that pt would prefer being home with vent, she will learn to manage and is already his paid caregiver however she notes she is also disabled/was in the towers on 05/22 and she herself was vented/trach and then ultimately liberated. She is committed to his care and feels she can manage his needs with help from home health. (4) Palliative care by specialist: Met with pt/family. Provided overview of Palliative Medicine, a subspecialty that provides specialized medical care for people living with a serious illness by offering a focus on quality of life through reduction of symptom burden/more control over their illness, for both the patient and family. We care for patients of any age/advancing stage of a serious illness and can be provided along with curative treatment. (5) ALS (amyotrophic lateral sclerosis): (6) Acute hypercapnic respiratory failure: (7) Aspiration pneumonia: (8) Aspiration into respiratory tract: Plan as above Thank you for allowing us to participate in the ongoing care of this patient. Please don't hesitate to call or page with any additional concerns. Dr. Elaina Elizalde [facility] Director, Palliative Care History of Present Illness Reason for Consultation: als patient now intubated Attending Physician: Joy cMcabe MD History of Present Illness Suleiman is a 48-year-old gentleman who presented to the emergency department on 02/05/2024 with increased work of breathing/suspected aspiration pneumonia found to be in acute hypoxic respiratory failure immediately requiring high flow nasal cannula oxygen. He significantly worsened through the day and eventually was transmitted to the ICU where he required urgent intubation with worsening hypotension, sinus tachycardia, and increasing CO2 retention per ABG. Patient was intubated and ventilated with plans for bronchoscopy. CT on admission demonstrated a very large right lower lobe opacity, consistent with aspiration versus pneumonia. He was febrile yesterday and his white count is elevated th ough it is noted he is on chronic steroids. He remains on Zosyn IV, vasopressors for septic shock, sedation with propofol. Palliative medicine has been consulted to assist with discussions regarding the goals of care overall. His prognosis is very poor. At baseline, this is a gentleman who has an advanced history of ALS who is wheelchair-bound with quadriplegia, additionally he has IBS, GERD, ADD, anxiety and depression. Prior history also includes DVT and PE. He is followed by [facility] neurology for his [facility] neurologist Dr. Hauser [phone] Chart review indicates patient's spoke with his [facility] neurologist who shared his concern the patient is overall declining and had initiated conversations about advanced directives and advanced illness planning at their last visit. At that time, the neurologist noted the family and patient are unable to come to any consensus. He then called patient's and had a further discussion about the goals of care and updated the critical care team that for now, she requires full code with plans to proceed with tracheostomy if necessary. She is aware that there is an overall low probability he will be extubated given his overall poor lung function (last FEV1 in July 2023 was 22%). NG tube has been placed, GI consult has been placed for PEG consultation. Allergies Allergy/AdvReac Type Severity Reaction Status Date / Time tramadol AdvReac Unknown GI Verified 02/05/24 22:52 discomfort Home Medications Medication Instructions Recorded Confirmed Type escitalopram oxalate 20 mg tablet 20 mg PO QAM 01/31/19 02/05/24 History omeprazole 20 mg capsule,delayed 20 mg PO QAM 01/31/19 02/05/24 History release apixaban 5 mg tablet (Eliquis) 5 mg PO BID 11/19/20 02/05/24 History ipratropium 0.5 mg-albuterol 3 mg 3 ml inhalation Q6H PRN WHEEZING 07/25/23 02/05/24 History (2.5 mg base)/3 mL nebulization OR SOB soln ondansetron 4 mg disintegrating 4 mg PO Q6H PRN nausea and 07/25/23 02/05/24 Rx tablet vomiting #14 tabs ergocalciferol (vitamin D2) 1,250 50,000 unit PO Q7D #7 caps 08/17/23 02/05/24 Rx mcg (50,000 unit) capsule gabapentin 300 mg capsule 300 mg PO TID 11/14/23 02/05/24 History mirtazapine 15 mg tablet 15 mg PO HS 11/14/23 02/05/24 History clonazepam 0.5 mg tablet 0.25 - 0.5 mg PO HS 02/05/24 02/05/24 History dextroamphetamine-amphetamine 15 15 mg PO TID 02/05/24 02/05/24 History mg tablet scopolamine base 1 mg over 3 days 1 patch topical [id number] 02/05/24 02/05/24 History transdermal patch Patient History Medical History COVID-19 History of pulmonary embolism ADD (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 GERD (gastroesophageal reflux disease) ALS (amyotrophic lateral sclerosis) Surgical History History of vasectomy H/O rhinoplasty S/P left knee arthroscopy Family History Father Pulmonary embolism Mother Hypertension Social History Smoking Status: Never smoker Second Hand Exposure: No; Do You Dip or Chew Tobacco: No; Tobacco Cessation Education Requested by Patient: No Hx Alcohol Use: No Hx Substance Use: No Preferred Language: Djiboutian Communication Ability: Impaired Wireless Network Engineer Required: No Beliefs That Will Affect Care: None marital status: Current Living Situation: Spouse current occupational status: employed Other Information That Helps Us Care for You: No Feels Safe at Home: Yes Safety Concerns: Feels Safe At This Time Assistive Devices: CPAP, Mechanical Lift, Scooter/Electric Scooter and Other Review of Systems Review of Systems: Unobtainable due to endotracheal tube and Unobtainable due to reduced consciousness (sedated) Physical Exam Physical Exam: intubated and sedated, +vent bitemp wasting pupils reactive neck without stridor coarse breath sounds tachy s1s2 scaphoid abdomen, BS+ flaccid weakness unable to assess mentation, does not awaken to voice but will furrow brow with sternal rub skin pale, diaphoretic, ashen Results & Data Vital Signs (Past 12 Hours) Vital Signs Temp Pulse Pulse Resp BP BP Pulse Ox 02/07/24 07:46 78 16 99 02/07/24 06:30 74 16 98/63 L 98 02/07/24 06:00 81 16 101/65 99 02/07/24 05:00 37.3 C 79 16 104/67 95 02/07/24 04:30 37.4 C 77 16 104/67 98 02/07/24 04:00 37.4 C 81 16 101/63 100 02/07/24 03:30 37.5 C 81 16 104/64 100 02/07/24 03:00 37.4 C 75 16 102/67 99 02/07/24 03:00 02/07/24 02:52 16 02/07/24 02:30 37.4 C 74 16 100/67 99 02/07/24 02:00 37.5 C 74 16 107/69 99 02/07/24 01:30 37.6 C H 65 16 102/66 98 02/07/24 01:00 37.6 C H 73 16 109/72 100 02/07/24 00:30 37.7 C H 75 16 98/65 L 99 02/07/24 00:00 37.7 C H 82 16 97/65 L 99 02/06/24 23:41 88 16 98 02/06/24 23:30 37.9 C H 86 16 89/62 L 98 02/06/24 23:00 38.0 C H 90 16 95/64 L 100 02/06/24 23:00 02/06/24 22:30 38.1 C H 89 16 94/63 L 98 02/06/24 22:00 38.1 C H 87 16 98/66 L 99 02/06/24 21:30 38.2 C H 85 17 89/58 L 99 O2 Del Method FiO2 02/07/24 07:46 40 02/07/24 06:30 Mechanical Vent 40 02/07/24 06:00 Mechanical Vent 40 02/07/24 05:00 Mechanical Vent 40 02/07/24 04:30 Mechanical Vent 40 02/07/24 04:00 Mechanical Vent 40 02/07/24 03:30 Mechanical Vent 40 02/07/24 03:00 Mechanical Vent 40 02/07/24 03:00 40 02/07/24 02:52 40 02/07/24 02:30 Mechanical Vent 40 02/07/24 02:00 Mechanical Vent 40 02/07/24 01:30 Mechanical Vent 40 02/07/24 01:00 Mechanical Vent 40 02/07/24 00:30 Mechanical Vent 40 02/07/24 00:00 Mechanical Vent 40 02/06/24 23:41 40 02/06/24 23:30 Mechanical Vent 40 02/06/24 23:00 Mechanical Vent 40 02/06/24 23:00 40 02/06/24 22:30 Mechanical Vent 40 02/06/24 22:00 Mechanical Vent 40 02/06/24 21:30 Mechanical Vent 40 Laboratory Results Most recent lab results ABG pH 7.25 (7.35-7.45) L 02/06/24 08:49 ABG pCO2 83 mmHg (35-46) H 02/06/24 08:49 ABG pO2 104 mmHg (80-95) H 02/06/24 08:49 ABG HCO3 36 mmol/L (19-24) H 02/06/24 08:49 ABG O2 Saturation 99.3 % (90-95) H 02/06/24 08:49 Calcium 8.1 mg/dl (8.6-10.3) L 02/08/24 04:33 Phosphorus 2.6 mg/dl (2.5-4.9) 02/08/24 04:33 Magnesium 1.9 mg/dl (1.7-2.4) 02/08/24 04:33 Diagnostic Findings Chest X-Ray 02/05/24 20:34 XR chest 1V portable CLINICAL HISTORY: Dyspnea. COMPARISON STUDY: Chest CT November 15, 2023. Chest radiograph November 18, 2023. FINDINGS: There is no thorax. Trace right pleural effusion is present. Car diomediastinal silhouette is normal. There is no evidence for pulmonary edema. Extensive right lower lung airspace opacity has developed. IMPRESSION: Interval development of extensive right lower lung airspace opacity which may reflect pneumonia or right lower lobe collapse. Underlying mucus plugging cannot be excluded. Radiographic follow-up to ensure resolution is recommended. Bronchoscopy might be considered. ACT 112: Negative or not required by law. Electronically signed by: Jules Cameron M.D. 02/06/2024 7:19 AM Chest CTA 02/05/24 21:36 Exam(s): CTA CHEST IV Amt: 104 ml opti 320 EXAM: CT Angiography Chest With Intravenous Contrast CLINICAL HISTORY: Reason for exam: PE. TECHNIQUE: Axial computed tomographic angiography images of the chest with intravenous contrast. CTDI is 20.09 mGy and DLP is 678.9 mGy-cm. Automated exposure control was utilized for the study. A dose lowering technique was utilized adhering to the principles of ALARA. MIP reconstructed images were created and reviewed. COMPARISON: 11/15/2023 FINDINGS: Pulmonary arteries: Unremarkable. No CT evidence of pulmonary embolism. Aorta: No acute findings. No thoracic aortic aneurysm. Lungs: Consolidation/collapse of the majority of the right lower lobe with debris-filled right lower lobe bronchi. Patchy pulmonary opacities within the posterior right upper lobe. There is debris within right and left mainstem bronchi. Pleural space: Unremarkable. No significant effusion. No pneumothorax. Heart: Unremarkable. No cardiomegaly. No significant pericardial effusion. No evidence of RV dysfunction. Bones/joints: No acute fracture. No dislocation. Soft tissues: Unremarkable. Lymph nodes: Unremarkable. No enlarged lymph nodes. Liver: 1.4 cm simple cyst within the medial inferior right lobe of the liver. IMPRESSION: 1. No CT evidence of pulmonary embolism. 2. Consolidation/collapse of the majority of the right lower lobe with debris-filled right lower lobe bronchi. 3. Patchy pulmonary opacities within the posterior right upper lobe. 4. Debris within right and left mainstem bronchi. Electronically signed by: Curt Pedraza M.D. 02/05/24 22:28 PM Duplex Scan Lower Extremity Artery 02/06/24 03:24 RIGHT LOWER EXTREMITY ARTERIAL DOPPLER ULTRASOUND CLINICAL HISTORY: cold feet, bluish discoloration. PVD? COMPARISON STUDY: No previous studies for comparison. TECHNIQUE: Bilateral lower extremity arterial Doppler ultrasound was ordered. Patient deferred imaging of the left lower extremity. FINDINGS: Mild atherosclerotic plaque within the right lower extremity was noted with triphasic waveforms within the right common femoral, profunda, superficial femoral, popliteal, anterior tibial, posterior tibial, dorsalis pedis and peroneal arteries. No elevated velocities were noted. Patient deferred imaging of the left lower extremity. IMPRESSION: 1. No evidence for a hemodynamically significant stenosis within the right lower extremity. Patent right lower extremity vessels. Mild atherosclerotic plaque. 2. Patient deferred imaging of the left lower extremity. ACT 112: Negative or not required by law. Electronically signed by: Jules Cameron M.D. 02/06/2024 6:56 AM Chest X-Ray 02/06/24 11:44 SINGLE VIEW CHEST CLINICAL HISTORY: Intubation. FINDINGS: An AP, portable, upright chest radiograph is compared to chest x-ray and chest CT dated 02/05/2024. The examination is degraded by portable technique and patient rotation. An endotracheal tube has been placed. The tip projects approximately 5 cm above the kun. The cardiomediastinal silhouette is unremarkable. There is dense airspace consolidation at the right lung base with a small right pleural effusion. Mild patchy airspace consolidation is noted in the right upper lobe. The left lung appears clear. No pneumothorax is seen. The bony thorax is grossly intact. IMPRESSION: 1. An endotracheal tube has been placed as above. 2. Dense airspace consolidation at the right lung base and a small right pleural effusion is similar to previous. This is typical for pneumonia and radiographic follow-up to resolution is recommended.. ACT 112: Negative or not required by law. Electronically signed by: Jose Ellington M.D. 02/06/2024 12:17 PM Chest X-Ray 02/06/24 12:00 SINGLE VIEW CHEST CLINICAL HISTORY: Enteric tube placement. FINDINGS: An AP, portable, upright chest radiograph is compared to chest x-ray performed earlier the same day 02/06/2024 and correlated with chest CT dated 02/05/2024. The examination is degraded by portable technique and patient rotation. An endotracheal tube is unchanged in position. An enteric tube has been placed. The tip projects below the diaphragm over the proximal stomach. The cardiomediastinal silhouette is unremarkable. There is dense airspace consolidation at the right lung base with a small right pleural effusion. Mild patchy airspace consolidation is noted in the right upper lobe. Question developing airspace consolidation at the left lung base. No pneumothorax is seen. The bony thorax is grossly intact. IMPRESSION: 1. Endotracheal and enteric tubes are in place as above. 2. Dense airspace consolidation at the right lung base and a small right pleural effusion is similar to previous. Question developing airspace consolidation at the left lung base. These findings are typical for pneumonia and radiographic follow-up to resolution is recommended. ACT 112: Negative or not required by law. Electronically signed by: Jose Ellington M.D. 02/06/2024 1:20 PM Chest X-Ray 02/07/24 07:00 XR chest 1V portable CLINICAL HISTORY: Intubation. COMPARISON STUDY: Chest CT February 05, 2024. Chest radiograph February 06, 2024 at 12:44 PM. FINDINGS: Tip of endotracheal tube is 3.9 cm above the kun. Tip of nasogastric tube is below the lower aspect of this image but at least within the body of the stomach. There is no pneumothorax or pleural effusion. Cardiomediastinal silhouette is normal. Right mid and right basilar airspace opacity persists. Left basilar opacity similar to prior exam. IMPRESSION: 1. Satisfactory positioning of the endotracheal tube. 2. No significant change in bilateral airspace opacities, greater within the right lung. ACT 112: Negative or not required by law. Electronically signed by: Jules Cameron M.D. 02/07/2024 8:22 AM PG Care Time/CCT Total # of Minutes Spent Total Time Spent with Patient: Total time spent is greater than 50% in coordination of care (as documented) at patient's floor/unit and/or counseling patient:I spent 125 minutes overall addressing this very complex case: 20 min in medical data review/discussion with referring provider(s) and/or preparation for the visit 25 min in direct interaction with the patient/exam 45 min in Advance Care Planning/Goals of Care discussions as detailed above in note (must be >16min) 15 min in subsequent review and synthesis of assessment and plan 20 min communicating with other providers regarding the patient's case: ccm, nursing, care mgt, archivist military history Advanced Care Planning 09303 Advanced Care Planning 30 Min 18610 Advanced Care Planning Additional 30 [place] [address] IN/OBS CONSULT LVL 5,80M (25 - SIGNIFICANT, SEPARATELY IDENTIFIABLE ) Patient Type New Medical Decision Making High Complexity Diagnoses Dyspnea and respiratory abnormalities R06.00; R06.89 Weakness generalized R53.1 Advanced care planning/counseling discussion Z71.89 Palliative care by specialist Z51.5 ALS (amyotrophic lateral sclerosis) G12.21 Acute hypercapnic respiratory failure J96.02 Aspiration pneumonia J69.0 Aspiration into respiratory tract T17.908A Additional Codes Advanced Care Planning - 88480 Advanced Care Planning 30 Min: 64579 Advanced Care Planning 30 Min ([id number]) Advanced Care Planning - 49073 Advanced Care Planning Additional 30 Min: 14759 Advanced Care Planning Additional 30 Min ([id number])
[2024-02-07 10:44] LABS: iSTAT Allen Test Pass; iSTAT Art Bld Gas pCO2 Correct 27 mmHg (35-46); iSTAT Art Bld Gas pH Corrected 7.612 (7.35-7.45); iSTAT Arterial Blood Gas HCO3 27 meg/L (19-24); iSTAT Arterial Blood Gas pCO2 27 mmHg (35-46); iSTAT Arterial Blood Gas pH 7.61 (7.35-7.45); iSTAT Arterial Blood Gas pO2 54 mmHg (80-95); iSTAT Arterial Blood Gas pO2 C 54; iSTAT Carbon Dioxide 28 mmol/L (24-31); iSTAT FiO2 30 %; iSTAT Hematocrit 28 % (42-52); iSTAT Hemoglobin 9.5 g/dl (14.0-18.0); iSTAT Potassium 2.5 mmol/L (3.3-5.0); iSTAT Site R Radial; iSTAT Sodium 134 mmol/L (135-144)
[2024-02-07] MEDS: LORazepam 1 MG in SYRINGE 0.5 ML IV STA (11:48)
[2024-02-07 12:05] LABS: Anion Gap 7 (3-11); Blood Urea Nitrogen 4 mg/dl (6-23); Calcium 7.5 mg/dl (8.6-10.3); Carbon Dioxide 31 mmol/L (21-32); Chloride 98 mmol/L (98-107); Est GFR (African American) > 150.0 ml/min; Est GFR (Non-African American) > 150.0 ml/min; Glucose 115 mg/dl (70-99(Fasting)); Potassium 3.6 mmol/L (3.5-5.1); Sodium 136 mmol/L (136-145)
[2024-02-07] MEDS: POTASSIUM CHLORIDE / WTR 10 MEQ/100 ML PLCT IV SCH (13:51)
--- NOTE | 2024-02-07 15:40 | Billing Data ---
Date of Service February 07, 2024 Coding Level of Care Code 76278 CRITICAL CARE 1ST 30-74M Time Spent (min) 62
[2024-02-07 18:07] LABS: Partial Thromboplastin Ratio 1.2; Partial Thromboplastin Time 31 Seconds (21-31); Prothrombin Time 10.8 Seconds (9.0-12.0)
[2024-02-07] MEDS: clonazePAM 0.25 MG OD TAB PO SCH (20:26)
[2024-02-08 05:06] LABS: Basophils # (auto) 0.01 K/uL (0.00-0.20); Basophils % (auto) 0.2 %; Eosinophils # (auto) 0.02 K/uL (0.00-0.50); Eosinophils % (auto) 0.3 %; Hematocrit (blood only) 29.1 % (42.0-52.0); Hemoglobin 9.7 g/dl (14.0-18.0); Immature Granulocytes # (auto) 0.02 K/uL (0.01-0.20); Immature Granulocytes % (auto) 0.3 %; Lymphocytes # (auto) 1.01 K/uL (1.20-3.40); Lymphocytes % (auto) 15.2 %; Mean Corpuscular Hemoglobin 29.6 pg (25.0-34.0); Mean Corpuscular Hgb Conc 33.3 g/dL (32.0-36.0); Mean Corpuscular Volume 88.7 fL (80.0-100.0); Mean Platelet Volume 11.1 fL (9.4-12.4); Monocytes # (auto) 0.46 K/uL (0.11-0.59); Monocytes % (auto) 6.9 %; Neutrophils # (auto) 5.13 K/uL (1.40-6.50); Neutrophils % (auto) 77.1 %; Platelet Count 197 K/uL (130-400); RDW Coefficient of Variation 13.1 % (11.5-14.5); RDW Standard Deviation 42.4 fL (36.4-46.3); Red Blood Count 3.28 M/uL (4.70-6.10); White Blood Count 6.65 K/ul (4.8-10.8)
[2024-02-08 05:12] LABS: Anion Gap 5 (3-11); Blood Urea Nitrogen 4 mg/dl (6-23); Calcium 8.1 mg/dl (8.6-10.3); Carbon Dioxide 32 mmol/L (21-32); Chloride 99 mmol/L (98-107); Est GFR (African American) > 150.0 ml/min; Est GFR (Non-African American) > 150.0 ml/min; Glucose 74 mg/dl (70-99(Fasting)); Magnesium 1.9 mg/dl (1.7-2.4); Phosphorus 2.6 mg/dl (2.5-4.9); Potassium 2.9 mmol/L (3.5-5.1); Sodium 136 mmol/L (136-145)
[2024-02-08] MEDS: POTASSIUM CHLORIDE 20 MEQ/15 ML UDC NG STA (05:47)
[2024-02-08] MEDS: MAGNESIUM SULFATE / D5W 1 GM/100 ML BAG IV SCH (05:47)
[2024-02-08] MEDS: POTASSIUM CHLORIDE / WTR 10 MEQ/100 ML PLCT IV SCH (05:47)
[2024-02-08] MEDS ORDERED: NOREPINEPHRINE/D5W 4 MG/250 ML PLCT IV SCH (06:15)
[2024-02-08] MEDS: VECURONIUM BROMIDE 10 MG VIAL IV PRN (06:58)
[2024-02-08] MEDS: PROPOFOL BOLUS FROM BAG IV PRN (07:05)
[2024-02-08] MEDS: LIDOCAINE 2% LOCAL 50 ML VIAL ONE (07:30)
--- NOTE | 2024-02-08 07:33 | Procedure Note ---
Procedure Note Date of Service February 08, 2024 Note Procedure: 1. Percutaneous dilatation of 8.o Shiley tracheostomy 2. Bronchoscopy with brushing Indication respiratory failure [employer] Dr. Artie Gunter Anesthesia: Patient was maintained on a propofol infusion. 5 mL bolus was administered as well as infusion at continuous rate. 100 mcg fentanyl bolus and fentanyl infusion 10 mg vecuronium. Consent: Risks and benefits were discussed with the patient's . Consent was verified and timeout was performed prior to starting the procedure. Documentation Lead: Dr. Burroughs Estimated blood loss: Less than 10 mL Procedure: The patient is in the ICU intubated and on the ventilator. He was placed on 100 percent FiO2. A timeout was performed. Consent was verified. Patient was paralyzed and sedation maintained. Once anesthesia was appropriate, neck roll was placed under the shoulders to allow for extension of the neck. Landmarks were easily palpable. An area approximately 1 cm below the cricoid cartilage was cleaned and draped using chlorhexidine. A sterile field was established. Using an 11 blade scalpel, a 1.5 cm longitudinal incision of the trachea was made. Blunt dissection with my index finger and the curved hemostats was conducted down until I could palpate tracheal rings with my index finger. At that point in time,Dr. Burroughs advanced the bronchoscope through the existing endotracheal tube. The bronchoscope was left at the tip of the ET tube. The cuff was deflated and the bronchoscope and endotracheal tube were withdrawn to a level just below the glottis. I was able to observe external ballottement using a curved forceps. Using an 18-gauge over the needle Angiocath, the trachea was entered between the second and third cartilaginous ring. A wire was passed through the catheter into the distal airway and visualized bronchoscopically to be distending into the lower airways. Catheter was removed leaving the wire in place. Stiff dilator was used to dilate the tract and then the Rhino dilator and guiding catheter were advanced over the wire into the airway. The Rhino dilator was removed leaving the wire and guiding catheter in place. A previously tested 8.0 Shiley cuffed tracheostomy had been lubricated and loading on a 28 Romanian delivery catheter. This was advanced over the wire and guiding catheter into the airway. Once the tracheostomy was in place, the loading catheter, guiding catheter, and wire were removed. The bronchoscope was then removed from the endotracheal tube and advanced through the newly placed tracheostomy tube and verified to be within the airway. The balloon was inflated. The inner cannula was replaced and the patient was attached to the ventilator. Good return tidal volumes were obtained. 3 Vicryl stay sutures were placed in the newly placed tracheostomy through the eyelets and at the 6 o'clock position. A drain sponge was placed and trach ties were attached. The roll under the shoulder blades was removed. Patient tolerated the procedure well. Coding CPT Codes ENT - ENT: 32929 Incision of windpipe ([id number]) [facility] [place] (Charges) ENT ENT: 96992 Incision of windpipe
--- NOTE | 2024-02-08 07:42 | Critical Care Progress Note ---
Date of Service February 08, 2024 Assessment & Plan (1) Acute hypoxemic respiratory failure: (2) GERD (gastroesophageal reflux disease): (3) ALS (amyotrophic lateral sclerosis): (4) Aspiration into respiratory tract: (5) Pneumonia: (6) History of pulmonary embolism: Plan Assessment: Pt is a 48 yo male with a hx of ALS who is wheelchair bound with quadriplegia, IBS, GERD, ADD, anxiety and depression, and hx DVT and PE who presents to the hospital on 02/04 for several days of worsening SOB and respiratory distress admitted to the ICU for ongoing respiratory distress and aspiration requiring intubation and mechanical ventilation. Critical care indication: Need for mechanical ventilation Need for vasopressor support 24 hour events: Stable overnight, continues to be afebrile. Tracheostomy performed around 7 am this morning per Dr. Gunter. Neurologic Spoke to pt's [facility] neurologist on admission as pt has progressive neurologic disease ALS. They feel with his progressive functional decline that he would be unlikely to be extubated and taken off the vent successfully and will likely need a tracheostomy. He was wheelchair dependent prior to hospitalization. Sees [facility] neurologist Dr. Hauser [phone]. Palliative consulted yesterday and per their note they want to continue all care and life sustaining treatments until that is no longer possible. Cardiac Pressures today have been largely okay but border on hypotension, sinus tachycardia has resolved. Last echo in our system is 2019 with EF 50-55% with right ventricular and IVC dilation. US negative for DVT and CTA neg for PE. Takes eliquis BID for hx PE/DVT, on lovenox now for prophylaxis (currently being held). Respiratory Has hx of ALS. On admission, CXR showed RLL opacity and chest CTA shows no PE but patchy opacities in right upper lobe with debris in right lower lobe most consistent with aspiration pneumonia. With worsening resp distress and worsened CO2 retention per ABG, pt was intubated yesterday and bronchoscopy done showing thick secretions only. At this time, understands it may be difficult or implausible to extubate him and she is okay with need for tracheostomy if needed. Question overall of if worsening resp status was truly due to asp pneumonia or due to progression of ALS with diaphragm involvement, likely a mixture of both. Will discuss likely need for tracheostomy with later today. Gastrointestinal To start tube feeds maybe tonight or tomorrow. Renal/electrolytes Cr on admission <0.20. No acute concerns, will monitor electrolytes daily and replete as needed. Repleting K+ this am. Genitourinary No concerns at this time, walters catheter for strict I/O's Endocrine Blood sugars stable. No concerns at this time. Hematologic Hgb 14.1 on admission, 12.4, 11.8, 9.7 today, no obvious sources of bleeding, will trend CBC daily. Infectious disease CTA on admission shows large right lower lobe opacity, seems most consistent with aspiration +/- pneumonia component. Pt did become febrile for about 12 hours yesterday. WBC count elevated in the setting of steroids. Will continue zosyn. Integumentary No concerns at this time Lines/access PIV, walters Prophylaxis DVT ppx: home eliquis held, hold lovenox since some blood noted in oral tube two nights ago with continue drop in hemoglobin. GI ppx: IV protonix Thank you the opportunity to participate in this patient's care. Please see attending documentation for further recommendations. Admission and Anticipated Discharge Date Admission Date: February 06, 2024 Subjective Pt is intubated and on vent still this morning. No signs of discomfort or distress this morning. Review of Systems Review of Systems: Unable to obtain per HPI. Physical Exam Physical Exam: General: Intubated still. Does open eyes briefly to verbal stimuli. HEENT: Normocephalic, atraumatic, Resp: On vent, rhonchi noted throughout lung orozco today Cardio: Regular rhythm and rhythm, no murmurs GI: Soft and nontender, nondistended, bowel sounds hypoactive Skin: Warm, dry, no rashes on visible skin Results & Data Results & Data Vital Signs (Past 12 Hours) Vital Signs Temp Pulse Pulse Resp BP BP Pulse Ox 02/08/24 07:20 101/65 02/08/24 07:20 35.8 C L 71 0 L 100 02/08/24 07:18 35.8 C L 80 0 L 100 02/08/24 07:17 122/74 02/08/24 07:17 35.8 C L 88 0 L 100 02/08/24 07:16 35.8 C L 84 0 L 100 02/08/24 07:15 35.8 C L 83 0 L 100 02/08/24 07:15 120/79 02/08/24 07:14 35.9 C L 87 6 L 100 02/08/24 07:12 125/83 02/08/24 07:12 35.9 C L 86 14 100 02/08/24 07:10 35.9 C L 65 12 100 02/08/24 07:10 96/63 L 02/08/24 07:08 35.9 C L 74 14 100 02/08/24 07:07 108/64 02/08/24 07:07 35.9 C L 81 9 L 100 02/08/24 07:06 35.9 C L 80 13 100 02/08/24 07:05 35.9 C L 80 15 100 02/08/24 07:05 100/65 02/08/24 07:04 35.9 C L 77 19 100 02/08/24 07:02 88/54 L 02/08/24 07:02 35.8 C L 77 12 100 02/08/24 07:00 35.9 C L 73 14 100 02/08/24 07:00 91/51 L 02/08/24 06:30 35.9 C L 55 L 12 93/62 L 98 02/08/24 06:17 35.9 C L 63 12 106/69 100 02/08/24 06:00 35.9 C L 64 12 114/66 99 02/08/24 05:49 36.0 C L 65 12 85/55 L 97 02/08/24 05:30 36.0 C L 64 12 78/53 L 98 02/08/24 05:00 36.1 C L 71 12 84/55 L 97 02/08/24 04:30 36.2 C L 61 12 86/54 L 95 02/08/24 04:00 36.3 C L 57 L 12 114/68 95 02/08/24 03:17 94 H 11 L 93 02/08/24 03:00 36.3 C L 69 13 114/67 93 02/08/24 03:00 02/08/24 02:00 36.2 C L 67 15 96/60 L 100 02/08/24 01:30 36.3 C L 75 14 98/64 L 97 02/08/24 01:01 36.3 C L 69 14 96/61 L 96 02/08/24 00:30 63 16 86/59 L 98 02/08/24 00:00 36.4 C L 52 L 16 108/63 91 02/07/24 23:30 36.3 C L 57 L 13 95/59 L 98 02/07/24 23:00 36.3 C L 52 L 14 105/62 95 02/07/24 23:00 02/07/24 22:58 58 L 11 L 97 02/07/24 22:30 36.1 C L 54 L 13 105/62 98 02/07/24 22:00 36.1 C L 53 L 13 97/63 L 94 02/07/24 21:30 36.0 C L 52 L 14 105/68 96 02/07/24 21:00 36.0 C L 55 L 19 97/62 L 93 02/07/24 20:54 11 L 02/07/24 20:30 36.0 C L 54 L 15 102/65 92 02/07/24 20:00 35.8 C L 55 L 15 148/95 H 91 02/07/24 20:00 O2 Del Method FiO2 02/08/24 07:20 02/08/24 07:20 02/08/24 07:18 02/08/24 07:17 02/08/24 07:17 02/08/24 07:16 02/08/24 07:15 02/08/24 07:15 02/08/24 07:14 02/08/24 07:12 02/08/24 07:12 02/08/24 07:10 02/08/24 07:10 02/08/24 07:08 02/08/24 07:07 02/08/24 07:07 02/08/24 07:06 02/08/24 07:05 02/08/24 07:05 02/08/24 07:04 02/08/24 07:02 02/08/24 07:02 02/08/24 07:00 02/08/24 07:00 02/08/24 06:30 Mechanical Vent 40 02/08/24 06:17 Mechanical Vent 40 02/08/24 06:00 Mechanical Vent 40 02/08/24 05:49 Mechanical Vent 40 02/08/24 05:30 Mechanical Vent 40 02/08/24 05:00 Mechanical Vent 40 02/08/24 04:30 Mechanical Vent 40 02/08/24 04:00 Mechanical Vent 40 02/08/24 03:17 02/08/24 03:00 Mechanical Vent 40 02/08/24 03:00 40 02/08/24 02:00 Mechanical Vent 40 02/08/24 01:30 Mechanical Vent 40 02/08/24 01:01 Mechanical Vent 40 02/08/24 00:30 Mechanical Vent 40 02/08/24 00:00 Mechanical Vent 40 02/07/24 23:30 Mechanical Vent 40 02/07/24 23:00 Mechanical Vent 40 02/07/24 23:00 40 02/07/24 22:58 40 02/07/24 22:30 Mechanical Vent 40 02/07/24 22:00 Mechanical Vent 50 02/07/24 21:30 Mechanical Vent 50 02/07/24 21:00 Mechanical Vent 60 02/07/24 20:54 40 02/07/24 20:30 Mechanical Vent 60 02/07/24 20:00 Mechanical Vent 60 02/07/24 20:00 Mechanical Vent 60
--- NOTE | 2024-02-08 08:21 | XRay Report ---
XR chest 1V portable HISTORY: Respiratory failure. COMPARISON: Chest 02/07/2024. FINDINGS: Tracheostomy tube and nasogastric tube remain in good position. Right greater than left pat ilana bibasilar airspace opacities have slightly improved. Suspect trace bilateral pleural effusions. T he heart is normal in size. No evidence for pulmonary edema. No pneumothorax. IMPRESSION: 1. Satisfactory support line placement. 2. Patchy bibasilar airspace opacities have slightly improved. This favors a pneumonia and could be d ue to aspiration. ACT 112: Negative or not required by law. Electronically signed by: Eric Renee M.D. 02/08/2024 8:20 AM
--- NOTE | 2024-02-08 09:07 | Procedure Note ---
Procedure Note Date of Service February 08, 2024 Supervising Physician Co-Signing Physician Notes PREOPERATIVE DIAGNOSIS: ALS with acute on chronic respiratory failure POSTOPERATIVE DIAGNOSIS: ALS with acute on chronic respiratory failure now with tracheostomy PROCEDURE PERFORMED: Flexible fiberoptic bronchoscopy with with clearing of the airways of the right lower lobe COMPLICATIONS: None. INDICATION: Percutaneous placement of tracheostomy and clearance of right lower lobe airways. PROCEDURE: Informed consent was obtained from the patient's prior to the procedure. All questions were answered to the best of my ability and the patient was satisfied. Timeout performed immediately prior to the procedure. The patient was on continuous propofol, fentanyl infusions and also received 8.2 mg of bicarbonate and prior to the initiation of the procedure. Initially the bronchoscope was inserted via the endotracheal tube adapter. Patient was on full ventilator mode and placed on 100% FiO2. I evaluated the bilateral tracheobronchial tree. Thick white secretions were noted emanating from the right lower lobe posterior bronchus. These were aspirated free. 60 cc of saline were utilized to help loosen the secretions and further secretions were aspirated. Scope was then withdrawn from the endotracheal tube. A colleague Dr. Gunter then began the percutaneous tracheostomy procedure. Please see his separate documentation for further details. I then reinserted the diagnostic bronchoscope via the endotracheal tube adapter. We were able to visualize the needle, wire, serial dilators and then tracheostomy after placement of the tracheostomy. I then evaluated the tracheostomy through the tracheostomy adapter. Tracheostomy appeared adequately placed several centimeters above the kun. The tracheostomy was then sutured in place by Dr. Gunter. I then inserted the bronchoscope via the mouth and evaluated the patient's vocal cords and upper airway which appeared to be unremarkable. I then passed the scope through the vocal cords and visualized the trachea. I was also able to visualize the tracheostomy and which appears to be adequately placed with no significant bleeding seen. The scope was then withdrawn. Patient tolerated procedure well. Recommendations: Percutaneous tracheostomy is adequately placed. Will wean vent settings and sedation as able. Coding CPT Codes Pulmonary/Thoracic - Pulmonary and Thoracic: 96116 Bronchoscopy, reclear airway ([id number]) [facility] [place] Codes (Charges) Pulmonary/Thoracic Procedure 1: Pulmonary and Thoracic: 89802 Bronchoscopy, reclear airway
--- NOTE | 2024-02-08 09:12 | Critical Care Progress Note ---
Date of Service February 08, 2024 Assessment & Plan (1) Acute hypoxemic respiratory failure: (2) GERD (gastroesophageal reflux disease): (3) ALS (amyotrophic lateral sclerosis): (4) Aspiration into respiratory tract: (5) Pneumonia: (6) History of pulmonary embolism: Plan Assessment: Pt is a 48 yo male with a hx of ALS who is wheelchair bound with quadriplegia, IBS, GERD, ADD, anxiety and depression, and hx DVT and PE who presents to the hospital on 02/04 for several days of worsening SOB and respiratory distress admitted to the ICU for ongoing respiratory distress and aspiration requiring intubation and mechanical ventilation. Critical care indication: Need for mechanical ventilation Need for vasopressor support 24 hour events: Stable overnight, continues to be afebrile. Tracheostomy performed around 7 am this morning per Dr. Gunter. Neurologic Spoke to pt's [facility] neurologist on admission as pt has progressive neurologic disease ALS. They feel with his progressive functional decline that he would be unlikely to be extubated and taken off the vent successfully and will likely need a tracheostomy. He was wheelchair dependent prior to hospitalization. Sees [facility] neurologist Dr. Hauser [phone]. Palliative consulted yesterday and per their note they want to continue all care and life sustaining treatments until that is no longer possible. Cardiac Pressures today have been largely okay but border on hypotension, sinus tachycardia has resolved. Last echo in our system is 2019 with EF 50-55% with right ventricular and IVC dilation. US negative for DVT and CTA neg for PE. Takes eliquis BID for hx PE/DVT, on lovenox now for prophylaxis (currently being held). Respiratory Has hx of ALS. On admission, CXR showed RLL opacity and chest CTA shows no PE but patchy opacities in right upper lobe with debris in right lower lobe most consistent with aspiration pneumonia. With worsening resp distress and worsened CO2 retention per ABG, pt was intubated yesterday and bronchoscopy done showing thick secretions only. At this time, understands it may be difficult or implausible to extubate him and she is okay with need for tracheostomy if needed. Tracheostomy performed today with consent of and patient. Gastrointestinal To start tube feeds today. Consult GI for Peg tube placement. Renal/electrolytes Cr on admission <0.20. No acute concerns, will monitor electrolytes daily and replete as needed. Repleting K+ this am. Genitourinary No concerns at this time, walters catheter for strict I/O's Endocrine Blood sugars stable. No concerns at this time. Hematologic Hgb 14.1 on admission, 12.4, 11.8, 9.7 today, no obvious sources of bleeding, will trend CBC daily. Infectious disease CTA on admission shows large right lower lobe opacity, seems most consistent with aspiration +/- pneumonia component. Pt did become febrile for about 12 hours yesterday. WBC count elevated in the setting of steroids. Will continue zosyn. Integumentary No concerns at this time Lines/access PIV, walters Prophylaxis DVT ppx: home eliquis held, hold lovenox since some blood noted in oral tube two nights ago with continue drop in hemoglobin and pending peg tube placement. GI ppx: IV protonix Thank you the opportunity to participate in this patient's care. Please see attending documentation for further recommendations. Admission and Anticipated Discharge Date Admission Date: February 06, 2024 Supervising Physician Co-Signing Physician Notes Agree with the assessment and plan aside for any additions/exceptions noted: Patient successfully underwent percutaneous tracheostomy placement today. I also cleared the right lower lobe airways thick mucus secretions. Chest x-ray post procedure. Slightly improved in the right lower lobe and tracheostomy appears appropriately positioned. Will wean vent settings and sedation as able. Patient stable for transfer to LTAC. Will continue Zosyn for the time being for aspiration pneumonia. Hemoglobin with slight downward trend possibly related to hemodilution. No overt signs of bleeding. He did have some blood from the OG tube earlier this hospital stay which has resolved. Will continue Protonix 40 twice daily. Will need to initiate tube feeds shortly. Will consult GI for possible PEG tube. Case management consulted for placement to LTAC. Will need to restart anticoagulation tomorrow if no plans for PEG tube given patient's history of DVT and PE. Wean Levophed as able. Patient required Levophed infusion as we increase the sedation for the tracheostomy procedure. Patient's extensively updated at bedside. Patient was discussed on multidisciplinary rounds with ICU pharmacist, respiratory therapist and bedside nurse. Appreciate assistance from my colleague, Dr. Gunter, for placement of percutaneous tracheostomy. Subjective Pt was intubated this morning but would occasionally open eyes to verbal stimu li. No apparent distress, appears comfortable. Review of Systems Review of Systems: Unable to obtain per HPI. Physical Exam Physical Exam: General: Intubated still. Does open eyes briefly to verbal stimuli. HEENT: Normocephalic, atraumatic, Resp: On vent, rhonchi noted throughout lung orozco today Cardio: Regular rhythm and rhythm, no murmurs GI: Soft and nontender, nondistended, bowel sounds hypoactive Skin: Warm, dry, no rashes on visible skin Results & Data Results & Data Vital Signs (Past 12 Hours) Vital Signs Temp Pulse Pulse Resp BP BP Pulse Ox 02/08/24 08:56 53 L 02/08/24 08:56 02/08/24 08:50 02/08/24 07:30 35.8 C L 73 14 100 02/08/24 07:30 117/77 02/08/24 07:28 35.8 C L 79 14 100 02/08/24 07:27 35.8 C L 82 14 100 02/08/24 07:27 119/79 02/08/24 07:26 35.8 C L 81 0 L 100 02/08/24 07:25 35.8 C L 83 0 L 100 02/08/24 07:25 117/77 02/08/24 07:24 35.8 C L 72 0 L 100 02/08/24 07:22 99/63 L 02/08/24 07:22 35.8 C L 70 0 L 100 02/08/24 07:20 101/65 02/08/24 07:20 35.8 C L 71 0 L 100 02/08/24 07:18 35.8 C L 80 0 L 100 02/08/24 07:17 122/74 02/08/24 07:17 35.8 C L 88 0 L 100 02/08/24 07:16 35.8 C L 84 0 L 100 02/08/24 07:15 35.8 C L 83 0 L 100 02/08/24 07:15 120/79 02/08/24 07:14 35.9 C L 87 6 L 100 02/08/24 07:12 125/83 02/08/24 07:12 35.9 C L 86 14 100 02/08/24 07:10 35.9 C L 65 12 100 02/08/24 07:10 96/63 L 02/08/24 07:08 35.9 C L 74 14 100 02/08/24 07:07 108/64 02/08/24 07:07 35.9 C L 81 9 L 100 02/08/24 07:06 35.9 C L 80 13 100 02/08/24 07:05 35.9 C L 80 15 100 02/08/24 07:05 100/65 02/08/24 07:04 35.9 C L 77 19 100 02/08/24 07:02 88/54 L 02/08/24 07:02 35.8 C L 77 12 100 02/08/24 07:00 35.9 C L 73 14 100 02/08/24 07:00 91/51 L 02/08/24 06:30 35.9 C L 55 L 12 93/62 L 98 02/08/24 06:17 35.9 C L 63 12 106/69 100 02/08/24 06:00 35.9 C L 64 12 114/66 99 02/08/24 05:49 36.0 C L 65 12 85/55 L 97 02/08/24 05:30 36.0 C L 64 12 78/53 L 98 02/08/24 05:00 36.1 C L 71 12 84/55 L 97 02/08/24 04:30 36.2 C L 61 12 86/54 L 95 02/08/24 04:00 36.3 C L 57 L 12 114/68 95 02/08/24 03:17 94 H 11 L 93 02/08/24 03:00 36.3 C L 69 13 114/67 93 02/08/24 03:00 02/08/24 02:00 36.2 C L 67 15 96/60 L 100 02/08/24 01:30 36.3 C L 75 14 98/64 L 97 02/08/24 01:01 36.3 C L 69 14 96/61 L 96 02/08/24 00:30 63 16 86/59 L 98 02/08/24 00:00 36.4 C L 52 L 16 108/63 91 02/07/24 23:30 36.3 C L 57 L 13 95/59 L 98 02/07/24 23:00 36.3 C L 52 L 14 105/62 95 02/07/24 23:00 02/07/24 22:58 58 L 11 L 97 02/07/24 22:30 36.1 C L 54 L 13 105/62 98 02/07/24 22:00 36.1 C L 53 L 13 97/63 L 94 02/07/24 21:30 36.0 C L 52 L 14 105/68 96 O2 Del Method FiO2 02/08/24 08:56 02/08/24 08:56 Trach Collar 02/08/24 08:50 70 02/08/24 07:30 02/08/24 07:30 02/08/24 07:28 02/08/24 07:27 02/08/24 07:27 02/08/24 07:26 02/08/24 07:25 02/08/24 07:25 02/08/24 07:24 02/08/24 07:22 02/08/24 07:22 02/08/24 07:20 02/08/24 07:20 02/08/24 07:18 02/08/24 07:17 02/08/24 07:17 02/08/24 07:16 02/08/24 07:15 02/08/24 07:15 02/08/24 07:14 02/08/24 07:12 02/08/24 07:12 02/08/24 07:10 02/08/24 07:10 02/08/24 07:08 02/08/24 07:07 02/08/24 07:07 02/08/24 07:06 02/08/24 07:05 02/08/24 07:05 02/08/24 07:04 02/08/24 07:02 02/08/24 07:02 02/08/24 07:00 02/08/24 07:00 02/08/24 06:30 Mechanical Vent 40 02/08/24 06:17 Mechanical Vent 40 02/08/24 06:00 Mechanical Vent 40 02/08/24 05:49 Mechanical Vent 40 02/08/24 05:30 Mechanical Vent 40 02/08/24 05:00 Mechanical Vent 40 02/08/24 04:30 Mechanical Vent 40 02/08/24 04:00 Mechanical Vent 40 02/08/24 03:17 02/08/24 03:00 Mechanical Vent 40 02/08/24 03:00 40 02/08/24 02:00 Mechanical Vent 40 02/08/24 01:30 Mechanical Vent 40 02/08/24 01:01 Mechanical Vent 40 02/08/24 00:30 Mechanical Vent 40 02/08/24 00:00 Mechanical Vent 40 02/07/24 23:30 Mechanical Vent 40 02/07/24 23:00 Mechanical Vent 40 02/07/24 23:00 40 02/07/24 22:58 40 02/07/24 22:30 Mechanical Vent 40 02/07/24 22:00 Mechanical Vent 50 02/07/24 21:30 Mechanical Vent 50 Resident Activity Tracking Resident Involvement: Resident Care Provided Care Provided: Adult [facility] Medicine
--- NOTE | 2024-02-08 09:14 | Billing Data ---
Date of Service February 08, 2024 CRITICAL CARE TIME - I have personally spent 37 minutes of critical care time in the direct management of this patient. This is a life/limb threatening event. This includes time spent evaluating patient, direct bedside care, chart review, placing orders, interpretation of diagnostic studies, discussion with consultants, patient, and family members, as well as other required patient management activities. This time is exclusive of all separately billable procedures, and teaching time and separate from and in addition to any other critical care service time. Coding Level of Care Code 14494 CRITICAL CARE 1ST 30-74M
[2024-02-08 10:16] LABS: Hematocrit (blood only) 29.5 % (42.0-52.0); Hemoglobin 9.9 g/dl (14.0-18.0); Mean Corpuscular Hemoglobin 29.4 pg (25.0-34.0); Mean Corpuscular Hgb Conc 33.6 g/dL (32.0-36.0); Mean Corpuscular Volume 87.5 fL (80.0-100.0); Mean Platelet Volume 11.6 fL (9.4-12.4); Platelet Count 252 K/uL (130-400); RDW Standard Deviation 41.4 fL (36.4-46.3); Red Blood Count 3.37 M/uL (4.70-6.10); White Blood Count 8.54 K/ul (4.8-10.8)
[2024-02-08] MEDS: PEPTAMEN 1.5 CAL 1,000 ML BAG OG SCH (10:32)
[2024-02-08] MEDS: oxyCODONE HCL IR 5 MG TAB (IMMEDIATE RELEASE) PO PRN (11:31)
--- NOTE | 2024-02-08 12:08 | Gastrointestinal Consultation ---
Date of Consultation February 08, 2024 Assessment & Plan (1) Decreased oral intake: 2/2 advanced ALS. Discussed with patient at bedside. He participates in his consent/plan of care. -Keep NPO after midnight -PEG placement in AM -Will need to continue to hold anticoagulation -Will defer pre-op dose of antibiotics as patient is already on broad spectrum IV antibiotics. Supervising Physician Co-Signing Physician Notes Agree with KISHA Madrigal as above Abd: Soft, NT, ND, +BS Continue current therapy and supportive care Will proceed with PEG tube placement in the AM History of Present Illness Reason for Consultation: Need for alternative nutrition Attending Physician: Joy Mccabe MD History of Present Illness Patient is a 48 yo male with ALS with quadriplegia, IBS, GERD, ADD, anxiety, depression, & h/o DVT/PE who presented to the hospital for worsening SOB & respiratory distress admitted to the ICU for ongoing respiratory distress and aspiration that ultimately required intubation and mechanical ventilation. It was felt by neuro that due to his advanced ALS it would be unlikely that extubation would be possible so patient underwent trach placement. Palliative conversation has occurred and patient would like to proceed with PEG tube for ongoing nutritional needs. He is currently on IV Zosyn. H/H 9.9/29.5. He takes Eliquis for history of DVT/PE. Anticoagulation on hold. Allergies Allergy/AdvReac Type Severity Reaction Status Date / Time tramadol AdvReac Unknown GI Verified 02/05/24 22:52 discomfort Home Medications Medication Instructions Recorded Confirmed Type escitalopram oxalate 20 mg tablet 20 mg PO QAM 01/31/19 02/05/24 History omeprazole 20 mg capsule,delayed 20 mg PO QAM 01/31/19 02/05/24 History release apixaban 5 mg tablet (Eliquis) 5 mg PO BID 11/19/20 02/05/24 History ipratropium 0.5 mg-albuterol 3 mg 3 ml inhalation Q6H PRN WHEEZING 07/25/23 02/05/24 History (2.5 mg base)/3 mL nebulization OR SOB soln ondansetron 4 mg disintegrating 4 mg PO Q6H PRN nausea and 07/25/23 02/05/24 Rx tablet vomiting #14 tabs ergocalciferol (vitamin D2) 1,250 50,000 unit PO Q7D #7 caps 12/07/23 05/27/24 Rx mcg (50,000 unit) capsule gabapentin 300 mg capsule 300 mg PO TID 11/14/23 02/05/24 History mirtazapine 15 mg tablet 15 mg PO HS 11/14/23 02/05/24 History clonazepam 0.5 mg tablet 0.25 - 0.5 mg PO HS 02/05/24 02/05/24 History dextroamphetamine-amphetamine 15 15 mg PO TID 02/05/24 02/05/24 History mg tablet scopolamine base 1 mg over 3 days 1 patch topical [id number] 02/05/24 02/05/24 History transdermal patch Patient History Medical History COVID-19 History of pulmonary embolism ADD (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 GERD (gastroesophageal reflux disease) ALS (amyotrophic lateral sclerosis) Surgical History History of vasectomy H/O rhinoplasty S/P left knee arthroscopy Family History Father Pulmonary embolism Mother Hypertension Social History Smoking Status: Never smoker Second Hand Exposure: No; Do You Dip or Chew Tobacco: No; Tobacco Cessation Education Requested by Patient: No Hx Alcohol Use: No Hx Substance Use: No Preferred Language: [place]i Communication Ability: Impaired Polishing Machine Tender Required: No Beliefs That Will Affect Care: None marital status: Current Living Situation: Spouse current occupational status: employed Other Information That Helps Us Care for You: No Feels Safe at Home: Yes Safety Concerns: Feels Safe At This Time Assistive Devices: CPAP, Mechanical Lift, Scooter/Electric Scooter and Other Review of Systems Constitutional: Patient notes pain at time of visit Physical Exam Constitutional: no acute distress Respiratory: mechanically ventilated with trach in place Gastrointestinal (Abdomen): normal bowel sounds, soft, nontender, no hepatosplenomegaly No visible scarring Results & Data Vital Signs (Past 12 Hours) Vital Signs Temp Pulse Pulse Resp BP BP Pulse Ox 02/08/24 10:23 02/08/24 09:15 36.0 C L 62 14 97 02/08/24 09:15 107/70 02/08/24 09:00 36.0 C L 54 L 14 96 02/08/24 09:00 89/63 L 02/08/24 08:56 53 L 02/08/24 08:56 02/08/24 08:50 02/08/24 08:45 36.1 C L 58 L 14 96 02/08/24 08:45 89/59 L 02/08/24 08:30 36.0 C L 52 L 14 97 02/08/24 08:30 99/64 L 02/08/24 08:15 113/74 02/08/24 08:15 36.0 C L 51 L 14 100 02/08/24 08:10 82/59 L 02/08/24 08:10 36.0 C L 65 14 100 02/08/24 08:07 93/65 L 02/08/24 08:07 35.9 C L 62 14 100 02/08/24 08:05 35.9 C L 63 14 100 02/08/24 08:05 98/64 L 02/08/24 08:02 105/68 02/08/24 08:02 35.9 C L 66 14 100 02/08/24 08:00 106/69 02/08/24 08:00 35.9 C L 64 14 100 02/08/24 07:57 109/71 02/08/24 07:57 35.9 C L 63 14 100 02/08/24 07:55 118/77 02/08/24 07:55 35.9 C L 66 14 100 02/08/24 07:52 124/79 02/08/24 07:52 35.8 C L 64 14 100 02/08/24 07:50 35.9 C L 62 14 100 02/08/24 07:50 118/77 02/08/24 07:47 35.9 C L 74 14 100 02/08/24 07:47 124/83 02/08/24 07:45 125/80 02/08/24 07:45 35.9 C L 79 14 100 02/08/24 07:42 35.8 C L 74 14 100 02/08/24 07:42 121/81 02/08/24 07:40 35.9 C L 65 14 100 02/08/24 07:40 109/72 02/08/24 07:37 115/76 02/08/24 07:35 123/79 02/08/24 07:32 112/72 02/08/24 07:30 35.8 C L 73 14 100 02/08/24 07:30 117/77 02/08/24 07:28 35.8 C L 79 14 100 02/08/24 07:27 35.8 C L 82 14 100 02/08/24 07:27 119/79 02/08/24 07:26 35.8 C L 81 0 L 100 02/08/24 07:25 35.8 C L 83 0 L 100 02/08/24 07:25 117/77 02/08/24 07:24 35.8 C L 72 0 L 100 02/08/24 07:22 99/63 L 02/08/24 07:22 35.8 C L 70 0 L 100 02/08/24 07:20 76 14 99 02/08/24 07:20 101/65 02/08/24 07:20 35.8 C L 71 0 L 02/08/24 07:18 35.8 C L 80 0 L 02/08/24 07:17 122/74 02/08/24 07:17 35.8 C L 88 0 L 02/08/24 07:16 35.8 C L 84 0 L 02/08/24 07:15 35.8 C L 83 0 L 100 02/08/24 07:15 120/79 02/08/24 07:14 35.9 C L 87 6 L 100 02/08/24 07:12 125/83 02/08/24 07:12 35.9 C L 86 14 100 02/08/24 07:10 35.9 C L 65 12 100 02/08/24 07:10 96/63 L 02/08/24 07:08 35.9 C L 74 14 100 02/08/24 07:07 108/64 02/08/24 07:07 35.9 C L 81 9 L 100 02/08/24 07:06 35.9 C L 80 13 100 02/08/24 07:05 35.9 C L 80 15 100 02/08/24 07:05 100/65 02/08/24 07:04 35.9 C L 77 19 100 02/08/24 07:02 88/54 L 02/08/24 07:02 35.8 C L 77 12 100 02/08/24 07:00 35.9 C L 73 14 100 02/08/24 07:00 91/51 L 02/08/24 06:30 35.9 C L 55 L 12 93/62 L 98 02/08/24 06:17 35.9 C L 63 12 106/69 100 02/08/24 06:00 35.9 C L 64 12 114/66 99 02/08/24 05:49 36.0 C L 65 12 85/55 L 97 02/08/24 05:30 36.0 C L 64 12 78/53 L 98 02/08/24 05:00 36.1 C L 71 12 84/55 L 97 02/08/24 04:30 36.2 C L 61 12 86/54 L 95 02/08/24 04:00 36.3 C L 57 L 12 114/68 95 02/08/24 03:17 94 H 11 L 93 02/08/24 03:00 36.3 C L 69 13 114/67 93 02/08/24 03:00 02/08/24 02:00 36.2 C L 67 15 96/60 L 100 02/08/24 01:30 36.3 C L 75 14 98/64 L 97 02/08/24 01:01 36.3 C L 69 14 96/61 L 96 02/08/24 00:30 63 16 86/59 L 98 02/08/24 00:00 36.4 C L 52 L 16 108/63 91 O2 Del Method FiO2 02/08/24 10:23 Mechanical Vent 02/08/24 09:15 02/08/24 09:15 02/08/24 09:00 02/08/24 09:00 02/08/24 08:56 02/08/24 08:56 Trach Collar 02/08/24 08:50 70 02/08/24 08:45 02/08/24 08:45 02/08/24 08:30 02/08/24 08:30 02/08/24 08:15 02/08/24 08:15 02/08/24 08:10 02/08/24 08:10 02/08/24 08:07 02/08/24 08:07 02/08/24 08:05 02/08/24 08:05 02/08/24 08:02 02/08/24 08:02 02/08/24 08:00 02/08/24 08:00 02/08/24 07:57 02/08/24 07:57 02/08/24 07:55 02/08/24 07:55 02/08/24 07:52 02/08/24 07:52 02/08/24 07:50 02/08/24 07:50 02/08/24 07:47 02/08/24 07:47 02/08/24 07:45 02/08/24 07:45 02/08/24 07:42 02/08/24 07:42 02/08/24 07:40 02/08/24 07:40 02/08/24 07:37 02/08/24 07:35 02/08/24 07:32 02/08/24 07:30 02/08/24 07:30 02/08/24 07:28 02/08/24 07:27 02/08/24 07:27 02/08/24 07:26 02/08/24 07:25 02/08/24 07:25 02/08/24 07:24 02/08/24 07:22 02/08/24 07:22 02/08/24 07:20 100 02/08/24 07:20 02/08/24 07:20 02/08/24 07:18 02/08/24 07:17 02/08/24 07:17 02/08/24 07:16 02/08/24 07:15 02/08/24 07:15 02/08/24 07:14 02/08/24 07:12 02/08/24 07:12 02/08/24 07:10 02/08/24 07:10 02/08/24 07:08 02/08/24 07:07 02/08/24 07:07 02/08/24 07:06 02/08/24 07:05 02/08/24 07:05 02/08/24 07:04 02/08/24 07:02 02/08/24 07:02 02/08/24 07:00 02/08/24 07:00 02/08/24 06:30 Mechanical Vent 40 02/08/24 06:17 Mechanical Vent 40 02/08/24 06:00 Mechanical Vent 40 02/08/24 05:49 Mechanical Vent 40 02/08/24 05:30 Mechanical Vent 40 02/08/24 05:00 Mechanical Vent 40 02/08/24 04:30 Mechanical Vent 40 02/08/24 04:00 Mechanical Vent 40 02/08/24 03:17 02/08/24 03:00 Mechanical Vent 40 02/08/24 03:00 40 02/08/24 02:00 Mechanical Vent 40 02/08/24 01:30 Mechanical Vent 40 02/08/24 01:01 Mechanical Vent 40 02/08/24 00:30 Mechanical Vent 40 02/08/24 00:00 Mechanical Vent 40 PG Care Time/CCT Total # of Minutes Spent Total Time Spent with Patient: Total time spent is greater than 50% in coordination of care (as documented) at patient's floor/unit and/or counseling patient: Coding Level of Care Code 40198 IN/OBS CONSULT LVL 4,60M Diagnoses Decreased oral intake R63.8
[2024-02-08 12:30] LABS: Anion Gap 5 (3-11); Blood Urea Nitrogen 4 mg/dl (6-23); Calcium 7.8 mg/dl (8.6-10.3); Carbon Dioxide 30 mmol/L (21-32); Chloride 99 mmol/L (98-107); Creatinine Clr Calc Pharmacy 437.7 ml/min; Est GFR (African American) > 150.0 ml/min; Est GFR (Non-African American) > 150.0 ml/min; Glucose 78 mg/dl (70-99(Fasting)); Potassium 4.2 mmol/L (3.5-5.1); Sodium 134 mmol/L (136-145)
--- NOTE | 2024-02-08 14:50 | Hospitalist Progress Note ---
Date of Service February 08, 2024 Assessment & Plan (1) Acute dyspnea: Plan: 48-year-old male with past medical history significant for ALS, orthostatic hypotension, irritable bowel syndrome, GERD, attention deficit disorder without hyperactivity, history of DVT and PE, depression with anxiety, wheelchair-bound at baseline presenting with shortness of breath for the last few days. Acute Hypoxic respiratory Failure Severe sepsis with septic shock POA RLL collapse Aspiration Pneumonia Pt presenting with SOB CTA chest on admission showed collapse of majority of right lower lobe with concern for pneumonia MRSA nares negative Patient was intubated, on mechanical ventilation in the ICU Underwent bronchoscopy, cultures pending Unable to be extubated in setting of progressive ALS (see below), s/p tracheostomy on 02/07 Continue on Zosyn; follow-up on cultures Was also in septic shock, continue hemodynamic support with vasopressors Goals of Care discussion- pt and desire full code status, tracheostomy, PEG Lower Extremity discoloration Asymptomatic Arterial Doppler with patent arteries on right, pt deferred on left extremity imaging. ALS quadriplegia in the setting of ALS and nonambulatory status On BiPAP while sleeping at home Goals of Care discussion as above -s/p tracheostomy on 02/07 -PEG tube to be placed by GI Hx of DVT and PE on Eliquis, currently on hold for trach procedure History of attention deficit disorder without hyperactivity Depression with anxiety continue home meds GERD on omeprazole Neuropathy On gabapentin DVT prophylaxis: Eliquis currently on hold for procedure Diet: OG Tube feeds currently, plan for PEG placement Disposition: currently in ICU, paln for LTAC Admission and Anticipated Discharge Date Admission Date: February 06, 2024 Subjective Seen after trach placement. per nursing had received pain Meds as he was in pain after the procedure. Unarousable. Review of Systems Review of Systems: All systems reviewed & are unremarkable except as noted in Subjective Physical Exam Physical Exam: General: laying in bed, eyes closed, resting comfortably HEENT: trach in place CV: RRR Resp: Breath sounds clear on anterior chest Extremities: Waffle boots on lower extremities Results & Data Results & Data Vital Signs (Past 12 Hours) Vital Signs Temp Pulse Resp BP Pulse Ox O2 Del Method FiO2 02/08/24 14:45 36.6 C 63 14 96 02/08/24 14:45 114/71 02/08/24 14:30 77/57 L 02/08/24 14:30 36.5 C 61 14 96 02/08/24 14:15 94/62 L 02/08/24 14:15 36.4 C L 49 L 14 95 02/08/24 14:00 36.4 C L 55 L 14 96 02/08/24 14:00 88/61 L 02/08/24 13:45 36.4 C L 48 L 14 96 02/08/24 13:45 105/72 02/08/24 13:30 93/65 L 02/08/24 13:30 36.3 C L 66 14 98 02/08/24 13:15 74/56 L 02/08/24 13:15 36.3 C L 73 14 94 02/08/24 13:00 36.2 C L 58 L 14 96 02/08/24 13:00 83/54 L 02/08/24 12:45 77/55 L 02/08/24 12:45 36.1 C L 59 L 14 94 02/08/24 12:30 35.9 C L 56 L 14 94 02/08/24 12:30 85/58 L 02/08/24 12:15 35.1 C L 57 L 14 94 02/08/24 12:15 108/68 02/08/24 12:00 121/75 02/08/24 12:00 36.2 C L 56 L 14 93 02/08/24 12:00 30 02/08/24 11:45 36.2 C L 55 L 14 95 02/08/24 11:45 98/63 L 02/08/24 11:30 36.2 C L 50 L 14 97 02/08/24 11:30 123/74 02/08/24 11:15 36.2 C L 58 L 14 95 02/08/24 11:15 108/66 02/08/24 11:12 59 L 14 96 30 02/08/24 11:00 36.2 C L 57 L 14 95 02/08/24 10:45 36.2 C L 49 L 14 97 02/08/24 10:45 123/79 02/08/24 10:30 36.1 C L 54 L 14 96 02/08/24 10:30 96/65 L 02/08/24 10:23 Mechanical Vent 02/08/24 10:15 36.1 C L 57 L 14 95 02/08/24 10:15 91/65 L 02/08/24 10:00 36.1 C L 59 L 14 100 02/08/24 10:00 103/66 02/08/24 09:45 36.0 C L 54 L 14 100 02/08/24 09:45 103/66 02/08/24 09:30 36.0 C L 66 14 98 02/08/24 09:30 83/59 L 02/08/24 09:15 36.0 C L 62 14 97 02/08/24 09:15 107/70 02/08/24 09:00 36.0 C L 54 L 14 96 02/08/24 09:00 89/63 L 02/08/24 08:56 53 L 02/08/24 08:56 Trach Collar 02/08/24 08:50 70 02/08/24 08:45 36.1 C L 58 L 14 96 02/08/24 08:45 89/59 L 02/08/24 08:30 36.0 C L 52 L 14 97 02/08/24 08:30 99/64 L 02/08/24 08:15 113/74 02/08/24 08:15 36.0 C L 51 L 14 100 02/08/24 08:10 82/59 L 02/08/24 08:10 36.0 C L 65 14 100 02/08/24 08:07 93/65 L 02/08/24 08:07 35.9 C L 62 14 100 02/08/24 08:05 35.9 C L 63 14 100 02/08/24 08:05 98/64 L 02/08/24 08:02 105/68 02/08/24 08:02 35.9 C L 66 14 100 02/08/24 08:00 106/69 02/08/24 08:00 35.9 C L 64 14 100 02/08/24 07:57 109/71 02/08/24 07:57 35.9 C L 63 14 02/08/24 07:55 118/77 02/08/24 07:55 35.9 C L 66 14 100 02/08/24 07:52 124/79 02/08/24 07:52 35.8 C L 64 14 02/08/24 07:50 35.9 C L 62 14 02/08/24 07:50 118/77 02/08/24 07:47 35.9 C L 74 14 02/08/24 07:47 124/83 02/08/24 07:45 125/80 02/08/24 07:45 35.9 C L 79 14 02/08/24 07:42 35.8 C L 74 14 100 02/08/24 07:42 121/81 02/08/24 07:40 35.9 C L 65 14 02/08/24 07:40 109/72 02/08/24 07:37 115/76 02/08/24 07:35 123/79 02/08/24 07:32 112/72 02/08/24 07:30 35.8 C L 73 14 02/08/24 07:30 117/77 02/08/24 07:28 35.8 C L 79 14 02/08/24 07:27 35.8 C L 82 14 02/08/24 07:27 119/79 02/08/24 07:26 35.8 C L 81 0 L 02/08/24 07:25 35.8 C L 83 0 L 02/08/24 07:25 117/77 02/08/24 07:24 35.8 C L 72 0 L 02/08/24 07:22 99/63 L 02/08/24 07:22 35.8 C L 70 0 L 02/08/24 07:20 76 14 99 100 02/08/24 07:20 101/65 02/08/24 07:20 35.8 C L 71 0 L 02/08/24 07:18 35.8 C L 80 0 L 02/08/24 07:17 122/74 02/08/24 07:17 35.8 C L 88 0 L 02/08/24 07:16 35.8 C L 84 0 L 02/08/24 07:15 35.8 C L 83 0 L 02/08/24 07:15 120/79 02/08/24 07:14 35.9 C L 87 6 L 100 02/08/24 07:12 125/83 02/08/24 07:12 35.9 C L 86 14 02/08/24 07:10 35.9 C L 65 12 100 02/08/24 07:10 96/63 L 02/08/24 07:08 35.9 C L 74 14 100 02/08/24 07:07 108/64 02/08/24 07:07 35.9 C L 81 9 L 100 02/08/24 07:06 35.9 C L 80 13 100 02/08/24 07:05 35.9 C L 80 15 100 02/08/24 07:05 100/65 02/08/24 07:04 35.9 C L 77 19 100 02/08/24 07:02 88/54 L 02/08/24 07:02 35.8 C L 77 12 100 02/08/24 07:00 35.9 C L 73 14 100 02/08/24 07:00 91/51 L 02/08/24 06:30 35.9 C L 55 L 12 93/62 L 98 Mechanical Vent 40 02/08/24 06:17 35.9 C L 63 12 106/69 100 Mechanical Vent 40 02/08/24 06:00 35.9 C L 64 12 114/66 99 Mechanical Vent 40 02/08/24 05:49 36.0 C L 65 12 85/55 L 97 Mechanical Vent 40 02/08/24 05:30 36.0 C L 64 12 78/53 L 98 Mechanical Vent 40 02/08/24 05:00 36.1 C L 71 12 84/55 L 97 Mechanical Vent 40 02/08/24 04:30 36.2 C L 61 12 86/54 L 95 Mechanical Vent 40 02/08/24 04:00 36.3 C L 57 L 12 114/68 95 Mechanical Vent 40 02/08/24 03:17 94 H 11 L 93 02/08/24 03:00 36.3 C L 69 13 114/67 93 Mechanical Vent 40 02/08/24 03:00 40
[2024-02-08] MEDS: oxyCODONE HCL SOLN 5 MG/5 ML UDC NG PRN (18:03)
[2024-02-08] MEDS: fentaNYL citrate PF 100 MCG/2 ML VIAL IV PRN (19:35)
[2024-02-09 05:34] LABS: iSTAT Allen Test Pass; iSTAT Art Bld Gas pCO2 Correct 39 mmHg (35-46); iSTAT Art Bld Gas pH Corrected 7.492 (7.35-7.45); iSTAT Arterial Blood Gas HCO3 30 meg/L (19-24); iSTAT Arterial Blood Gas pCO2 39 mmHg (35-46); iSTAT Arterial Blood Gas pH 7.49 (7.35-7.45); iSTAT Arterial Blood Gas pO2 68 mmHg (80-95); iSTAT Arterial Blood Gas pO2 C 68; iSTAT Carbon Dioxide 31 mmol/L (24-31); iSTAT FiO2 30 %; iSTAT Hematocrit 28 % (42-52); iSTAT Hemoglobin 9.5 g/dl (14.0-18.0); iSTAT Potassium 3.4 mmol/L (3.3-5.0); iSTAT Site R Radial; iSTAT Sodium 135 mmol/L (135-144)
--- NOTE | 2024-02-09 06:40 | Critical Care Progress Note ---
Date of Service February 09, 2024 Assessment & Plan (1) Acute hypoxemic respiratory failure: (2) GERD (gastroesophageal reflux disease): (3) ALS (amyotrophic lateral sclerosis): (4) Aspiration into respiratory tract: (5) Pneumonia: (6) History of pulmonary embolism: Plan Assessment: Pt is a 48 yo male with a hx of ALS who is wheelchair bound with quadriplegia, IBS, GERD, ADD, anxiety and depression, and hx DVT and PE who presents to the hospital on 02/04 for several days of worsening SOB and respiratory distress admitted to the ICU for ongoing respiratory distress and aspiration requiring intubation and mechanical ventilation. Critical care indication: Need for mechanical ventilation Need for vasopressor support 24 hour events: Stable overnight, tracheostomy performed yesterday morning by Dr. Gunter. Remains on levophed for hypotension. Plan for PEG tube placement today per GI and start feeds after. Neurologic Spoke to pt's [facility] neurologist on admission as pt has progressive neurologic disease ALS. They feel with his progressive functional decline that he would be unlikely to be extubated and taken off the vent successfully and will likely need a tracheostomy. He was wheelchair dependent prior to hospitalization. Sees [facility] neurologist Dr. Hauser [phone]. Palliative consulted and per their note they want to continue all care and life sustaining treatments until that is no longer possible. Cardiac Pressures today have been largely okay but border on hypotension, sinus tachycardia has resolved. Last echo in our system is 2019 with EF 50-55% with right ventricular and IVC dilation. US negative for DVT and CTA neg for PE. Takes eliquis BID for hx PE/DVT, on lovenox now for prophylaxis (currently being held). Respiratory Has hx of ALS. On admission, CXR showed RLL opacity and chest CTA shows no PE but patchy opacities in right upper lobe with debris in right lower lobe most consistent with aspiration pneumonia. Pt was intubated for several days for worsened resp status. Question overall of if worsening resp status was truly due to asp pneumonia or due to progression of ALS with diaphragm involvement, likely a mixture of both. Tracheostomy performed 02/[address] Gunter. Gastrointestinal To start tube feeds today. Consult GI for Peg tube placement. Renal/electrolytes Cr on admission <0.20. No acute concerns, will monitor electrolytes daily and replete as needed. Repleting K+ this am. Genitourinary No concerns at this time, walters catheter for strict I/O's Endocrine Blood sugars stable. No concerns at this time. Hematologic Hgb 14.1 on admission, 12.4, 11.8, 9.7, 10.1 today no obvious sources of bleeding, will trend CBC daily. Infectious disease CTA on admission shows large right lower lobe opacity, seems most consistent with aspiration +/- pneumonia component. Will continue zosyn. Integumentary No concerns at this time Lines/access PIV, walters Prophylaxis DVT ppx: home eliquis held, hold lovenox since some blood noted in oral tube three nights ago with continue drop in hemoglobin and pending peg tube placement. GI ppx: IV protonix Thank you the opportunity to participate in this patient's care. Please see attending documentation for further recommendations. Admission and Anticipated Discharge Date Admission Date: February 06, 2024 Supervising Physician Co-Signing Physician Notes Patient seen and examined with resident physician. Agree with the note side for any additions/exceptions noted: Unfortunately, GI was unable to place a PEG tube today. Will consult surgery for potential PEG tube placement. Will continue to hold tube feeds until the matter is resolved. Hold anticoagulation for today. Patient requiring low-dose of Levophed probably related to sedation. Will start midodrine once able to take medications via GI tract. Will check random cortisol level and consider reinitiating hydrocortisone depending on level. Continue full vent support at this time. Continue as needed opiates. Will start oxycodone 5 mg every 6 hours scheduled for pain control. Discussion with case management and patient/ deciding upon potential LTAC locations. Patient stable for transfer to LTAC when decision has been made and availability is present. Continue antibiotics for total 7 days. Chest x-ray reveals improved infiltrate in the right lower lobe. Subjective Today, pt is seen at bedside. He was initially sleeping but awoke easily to verbal stimuli. He denies pain anywhere, difficulty breathing, or any complaints at the moment. Review of Systems Review of Systems: Per HPI. Physical Exam Physical Exam: General: With trach on ventilator, asleep initially but easily able to be awakened and responsive by head nods HEENT: Normocephalic, atraumatic, Resp: On vent trhough trach, scattered rhonchi noted throughout lung orozco today improved from yesterday Cardio: Regular rhythm and rhythm, no murmurs GI: Soft and nontender, nondistended, bowel sounds hypoactive Skin: Warm, dry, no rashes on visible skin Results & Data Results & Data Vital Signs (Past 12 Hours) Vital Signs Temp Pulse Pulse Resp BP BP Pulse Ox 02/09/24 05:56 14 02/09/24 04:00 96/57 L 02/09/24 04:00 36.9 C 55 L 14 96 02/09/24 04:00 02/09/24 03:40 59 L 15 96 02/09/24 03:00 94/55 L 02/09/24 03:00 36.8 C 60 14 96 02/09/24 02:00 91/57 L 02/09/24 01:59 36.9 C 55 L 17 95 02/09/24 01:00 101/62 02/09/24 01:00 36.9 C 57 L 14 94 02/09/24 00:30 100/63 02/09/24 00:30 36.9 C 57 L 14 95 02/09/24 00:00 96/65 L 02/09/24 00:00 36.6 C 57 L 12 94 02/09/24 00:00 62 02/09/24 00:00 36.8 C 56 L 14 125/94 96 02/09/24 00:00 02/08/24 23:30 36.6 C 59 L 14 95 02/08/24 23:30 94/65 L 02/08/24 23:20 61 16 96 02/08/24 23:15 36.5 C 57 L 14 94 02/08/24 23:00 116/70 02/08/24 23:00 36.5 C 53 L 14 96 02/08/24 22:30 101/69 02/08/24 22:30 36.5 C 56 L 16 94 02/08/24 22:15 36.5 C 89/63 L 02/08/24 22:00 36.5 C 56 L 14 94 02/08/24 22:00 95/64 L 02/08/24 21:00 36.6 C 59 L 16 94 02/08/24 21:00 132/76 02/08/24 20:00 121/69 02/08/24 20:00 36.7 C 55 L 14 95 02/08/24 19:40 02/08/24 19:40 02/08/24 19:25 55 L 15 94 02/08/24 19:00 36.8 C 54 L 14 98 02/08/24 19:00 110/68 O2 Del Method FiO2 02/09/24 05:56 30 02/09/24 04:00 02/09/24 04:00 02/09/24 04:00 30 02/09/24 03:40 30 02/09/24 03:00 02/09/24 03:00 02/09/24 02:00 02/09/24 01:59 02/09/24 01:00 02/09/24 01:00 02/09/24 00:30 02/09/24 00:30 02/09/24 00:00 02/09/24 00:00 02/09/24 00:00 02/09/24 00:00 Mechanical Vent 30 02/09/24 00:00 30 02/08/24 23:30 02/08/24 23:30 02/08/24 23:20 30 02/08/24 23:15 02/08/24 23:00 02/08/24 23:00 02/08/24 22:30 02/08/24 22:30 02/08/24 22:15 02/08/24 22:00 02/08/24 22:00 02/08/24 21:00 02/08/24 21:00 02/08/24 20:00 02/08/24 20:00 02/08/24 19:40 Mechanical Vent 30 02/08/24 19:40 30 02/08/24 19:25 30 02/08/24 19:00 02/08/24 19:00 Resident Activity Tracking Resident Involvement: Resident Care Provided Care Provided: Adult Hospital Medicine
[2024-02-09 07:18] LABS: Anion Gap 6 (3-11); Blood Urea Nitrogen 3 mg/dl (6-23); Calcium 7.7 mg/dl (8.6-10.3); Carbon Dioxide 30 mmol/L (21-32); Chloride 100 mmol/L (98-107); Creatinine Clr Calc Pharmacy 421.1 ml/min; Est GFR (African American) > 150.0 ml/min; Est GFR (Non-African American) > 150.0 ml/min; Glucose 80 mg/dl (70-99(Fasting)); Magnesium 1.8 mg/dl (1.7-2.4); Potassium 3.5 mmol/L (3.5-5.1); Sodium 136 mmol/L (136-145)
[2024-02-09 07:22] LABS: Basophils # (auto) 0.02 K/uL (0.00-0.20); Basophils % (auto) 0.3 %; Eosinophils # (auto) 0.02 K/uL (0.00-0.50); Eosinophils % (auto) 0.3 %; Hematocrit (blood only) 30.3 % (42.0-52.0); Hemoglobin 10.1 g/dl (14.0-18.0); Immature Granulocytes # (auto) 0.01 K/uL (0.01-0.20); Immature Granulocytes % (auto) 0.2 %; Lymphocytes # (auto) 1.42 K/uL (1.20-3.40); Lymphocytes % (auto) 22.8 %; Mean Corpuscular Hgb Conc 33.3 g/dL (32.0-36.0); Mean Corpuscular Volume 87.1 fL (80.0-100.0); Mean Platelet Volume 11.2 fL (9.4-12.4); Monocytes # (auto) 0.37 K/uL (0.11-0.59); Monocytes % (auto) 5.9 %; Neutrophils % (auto) 70.5 %; Platelet Count 275 K/uL (130-400); Red Blood Count 3.48 M/uL (4.70-6.10); White Blood Count 6.24 K/ul (4.8-10.8)
[2024-02-09] MEDS: SODIUM CHLORIDE 0.9% 500 ML IV SCH (08:30)
--- NOTE | 2024-02-09 08:32 | History & Physical Bridge Note ---
Date of Service February 09, 2024 History & Physical Bridge Note I have reviewed the History & Physical and in the interval since the performance of the History & Physical I have noted the following changes of clinical significance: no changes noted. Continue to hold NG tube feeds, continue to hold anticoagulation, & proceed with PEG today. Supervising Physician Co-Signing Physician Notes Agree with KISHA Madrigal as above Abd: Soft, NT, ND, +BS Consent for PEG tube obtained from Proceed with PEG tube placement now Continue current therapy and supportive care.
--- NOTE | 2024-02-09 08:44 | Anesthesiology Consultation ---
Date of Service February 09, 2024 Assessment & Plan Chart Review Chart Review: Acceptable Risk for Surgery Consults Requested none ASA ASA4 Proposed Anesthesia Anesthesia Type: MAC Risk / Benefits Reviewed With: PT / POA / Parent / Guardian, Accepts Plan and Informed Consent Obtained Additional Comments: pt on norepi 0.09 mcg/kg/min preop vent settings tv 370 [id number] 30%fio2 peep 5 History Surgery Operation Date: 02/09/24 16:30 Proposed Procedures p Esophagogastroduodenoscopy with Gastric Tube Placement Dr Rashad Solorzano, DO Height/Weight Height: 6 ft 2 in Weight: 65.9 kg Allergies Allergy/AdvReac Type Severity Reaction Status Date / Time tramadol AdvReac Unknown GI Verified 02/05/24 22:52 discomfort Medications Home Medications Medication Instructions Recorded Confirmed Last Taken escitalopram oxalate 20 mg tablet 20 mg PO QAM 01/31/19 02/05/24 02/05/24 omeprazole 20 mg capsule,delayed 20 mg PO QAM 01/31/19 02/05/24 02/05/24 release apixaban 5 mg tablet (Eliquis) 5 mg PO BID 11/19/20 02/05/24 02/05/24 ipratropium 0.5 mg-albuterol 3 mg 3 ml inhalation Q6H PRN WHEEZING 07/25/23 02/05/24 Unknown (2.5 mg base)/3 mL nebulization OR SOB soln ondansetron 4 mg disintegrating 4 mg PO Q6H PRN nausea and 07/25/23 02/05/24 Unknown tablet vomiting #14 tabs ergocalciferol (vitamin D2) 1,250 50,000 unit PO Q7D #7 caps 08/17/23 02/05/24 02/04/24 mcg (50,000 unit) capsule gabapentin 300 mg capsule 300 mg PO TID 11/14/23 02/05/24 02/05/24 mirtazapine 15 mg tablet 15 mg PO HS 11/14/23 02/05/24 02/04/24 clonazepam 0.5 mg tablet 0.25 - 0.5 mg PO HS 02/05/24 02/05/24 02/04/24 dextroamphetamine-amphetamine 15 15 mg PO TID 02/05/24 02/05/24 Unknown mg tablet scopolamine base 1 mg over 3 days 1 patch topical [id number] 02/05/24 02/05/24 02/04/24 transdermal patch Active Medications Generic Name Dose Route Start Last Admin Trade Name Freq PRN Reason Stop Dose Admin Clonazepam 0.5 mg 02/07/24 21:00 02/08/24 21:05 Clonazepam 0.25 Mg Od Tab PO 03/08/24 20:59 0.5 mg HS CESAR Administration Enoxaparin Sodium 40 mg 02/07/24 09:00 02/07/24 08:52 Enoxaparin Inj 40 Mg/0.4 Ml Syr SQ 03/08/24 08:59 40 mg QAM CESAR Administration Enteral Nutritional Formula 1,000 ml 02/06/24 17:00 02/08/24 10:32 Peptamen 1.5 Harman 1,000 Ml Bag OG 03/07/24 16:59 1,000 ml .See Protocol CESAR Administration Protocol Escitalopram Oxalate 20 mg 02/07/24 09:00 02/07/24 08:54 Escitalopram Oxalate Oral Soln 20 Mg/20 Ml Udp NG 03/08/24 08:59 20 mg QAM CESAR Administration Fentanyl Citrate 50 mcg 02/08/24 10:02 02/09/24 05:31 Fentanyl Citrate Pf 100 Mcg/2 Ml Vial IV 02/22/24 10:01 50 mcg Q2H PRN Administration severe pain 7-10 Gabapentin 300 mg 02/06/24 14:00 02/08/24 21:05 Gabapentin 250 Mg/5 Ml 470 Ml Btl PO 03/07/24 13:59 300 mg TID CESAR Administration Piperacillin Sod/Tazobactam 100 mls @ 25 mls/hr 02/06/24 06:00 02/09/24 06:20 Sod 4.5 gm/ Dextrose IV 02/13/24 05:59 25 mls/hr Q8H CESAR Administration Protocol Norepinephrine Bitartrate 4 mg in 250 mls @ 20.756 mls/hr 02/06/24 13:00 02/09/24 07:06 Levophed/D5w IV 03/07/24 12:59 0.09 mcg/kg/min .Q12H3M CESAR 20.8 mls/hr Titration Protocol 0.09 MCG/KG/MIN Acetaminophen 1,000 mg in 100 mls @ 400 mls/hr 02/06/24 16:40 02/08/24 15:26 Ofirmev IV 02/09/24 16:39 Infused Q8H PRN Infusion Fever Pantoprazole Sodium 40 mg/ 10 mls @ 5 mls/min 02/06/24 21:00 02/08/24 21:14 Syringe IV 03/07/24 20:59 5 mls/min BID CESAR Administration Mirtazapine 15 mg 02/06/24 21:00 02/08/24 21:05 Mirtazapine Tab 15 Mg Tab PO 03/07/24 20:59 15 mg HS CESAR Administration Oxycodone HCl 5 mg 02/08/24 13:11 02/08/24 18:03 Oxycodone Hcl Soln 5 Mg/5 Ml Udc NG 02/22/24 13:10 5 mg Q6H PRN Administration Moderate Pain (Scale 4, 5, 6) Scopolamine 1 patch 02/07/24 09:00 02/07/24 08:54 Scopolamine 1 Mg/72 Hr Tdsy Patch TD 03/08/24 08:59 1 patch Q3D CESAR Administration Sterile Water 175 ml 02/06/24 17:00 02/09/24 04:48 Tube Feeding Water Flush OG 03/07/24 16:59 Not Given Q4H CESAR NPO Date Last Intake of Fluids: 02/09/24 Time Last Intake of Fluids: 23:59 Date Last Intake of Solids: 02/08/24 Time Last Intake of Solids: 23:59 Past Medical History Medical History (Updated 02/09/24 @ 08:40 by Gladys Reynolds DO) Depression (11/28/12) Bronchitis (11/28/12) History of ventilator dependency Acute hypoxemic respiratory failure Acute dyspnea SBO (small bowel obstruction) History of pulmonary embolism ADD (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 GERD (gastroesophageal reflux disease) ALS (amyotrophic lateral sclerosis) Exercise / Class Metabolic Activity IV < 2 Limit ADL/Bedbound Past Family History Family History Father Pulmonary embolism Mother Hypertension Past Surgical History Surgical History (Updated 02/09/24 @ 08:40 by Gladys Reynolds DO) Hx of tracheostomy History of vasectomy H/O rhinoplasty S/P left knee arthroscopy Past Anesthesia History No Hx of Anesthesia Complications and No Family Hx of Anesthesia Complications History of PONV No Hx of PONV and No Hx of Motion Sickness Social History Smoking Status: Never smoker Do You Dip or Chew Tobacco: No Hx Alcohol Use: No Alcohol type: hard liquor alcohol intake frequency: holidays/special occasions only Hx Substance Use: No substance use type: does not use Physical Exam Vital Signs Last Vital Signs Temp 36.9 C 02/09/24 04:00 Pulse 66 02/09/24 07:39 Resp 14 02/09/24 07:18 BP 96/57 L 02/09/24 04:00 Pulse Ox 97 02/09/24 07:18 O2 Del Method Mechanical Vent 02/09/24 00:00 O2 Flow Rate 2 02/06/24 09:30 FiO2 30 02/09/24 07:18 ENMT Mouth: no TMJ abnormality Mallampati Class: Other (trach placed yesterday) Neck normal visual inspection and trachea midline; neck extension not limited Respiratory normal respiratory effort Auscultation: + diminished lung sounds, + crackles and + rhonchi Cardiovascular Rate/Rhythm: regular rate and regular rhythm Heart Sounds: no murmur Musculoskeletal als with quadrillegia Neurologic als with quadriplegia Psychiatric nit participating in exam Testing Laboratory Results 02/09/24 05:44 02/09/24 05:44 PT 10.8 Seconds (9.0-12.0) 02/07/24 17:09 INR 1.0 (0.9-1.1) 02/07/24 17:09 APTT 31 Seconds (21-31) 02/07/24 17:09 Urine Color Yellow 02/06/24 03:56 Urine Appearance Clear (Clear) 02/06/24 03:56 Urine pH 5.5 (4.5-7.5) 02/06/24 03:56 Ur Specific [place] > 1.045 (1.000-1.030) H 02/06/24 03:56 Urine Protein Negative (Negative) 02/06/24 03:56 Urine Glucose (UA) Negative (Negative) 02/06/24 03:56 Urine Ketones Negative (Negative) 02/06/24 03:56 Urine Nitrite Negative (Negative) 02/06/24 03:56 Ur Leukocyte Esterase Negative (Negative) 02/06/24 03:56 Urine WBC (Auto) 0-5 /hpf (0-5) 02/06/24 03:56 Urine RBC (Auto) >20 /hpf (0-2) H 02/06/24 03:56 U Hyaline Cast (Auto) 0-2 /lpf (0-2) 02/06/24 03:56 U Epithel Cells (Auto) 0-2 /hpf (0-2) 02/06/24 03:56 Urine Bacteria (Auto) None Seen (None Seen) 02/06/24 03:56 02/06/24 11:40 Gram Stain - Final Bronch Wash,Right Lower Lobe Bronchial Culture - Final Light normal toro. 02/05/24 21:17 Aerobic Blood Culture - Preliminary Blood No growth in Aerobic bottle after 48 hours. Anaerobic Blood Culture - Preliminary No growth in Anaerobic bottle after 48 hours. 02/05/24 20:33 Aerobic Blood Culture - Preliminary Blood No growth in Aerobic bottle after 48 hours. Anaerobic Blood Culture - Preliminary No growth in Anaerobic bottle after 48 hours. 02/06/24 11:40 Acid Fast Bacilli Smear - Final Ba Lavage,Right Lower Lobe 02/06/24 11:40 Fungal Smear - Final Bronch Wash,Right Lower Lobe 02/08/24 22:54 POC Glucose 104 H
--- NOTE | 2024-02-09 09:22 | XRay Report ---
XR chest 1V portable CLINICAL HISTORY: intubated pt TECHNIQUE: Single frontal radiograph of the chest was obtained. Comparison: Comparison is made to chest radiograph 02/08/2024 FINDINGS: Tracheostomy tube and enteric tube are unchanged. The cardiomediastinal silhouette is normal. Right l ower lung airspace opacity has improved from prior exam. No evidence of pleural effusion or pneumotho rax. IMPRESSION: Right lower lung airspace opacity has improved from prior exam and may represent improving atelectasi s, pneumonia, and/or aspiration. ACT 112: Negative or not required by law. Electronically signed by: Keny Cantu M.D. 02/09/2024 9:21 AM
--- NOTE | 2024-02-09 10:18 | Billing Data ---
Date of Service February 09, 2024 Coding Level of Care Code 95512 CRITICAL CARE 1ST 30-74M Time Spent (min) 39
[2024-02-09] MEDS: LIDOCAINE 2% 2 ML VIAL/AMP(20MG/ML) INFIL ONE (10:22)
[2024-02-09] MEDS: PROPOFOL IV EMULSION 10 MG/ML 20 ML VIAL IV ONE (10:23)
--- NOTE | 2024-02-09 10:35 | GI REPORT ---
Patient Name: Alberto Moffett Procedure Date: 02/09/2024 9:13 AM Date of : 1975 Admit Type: Inpatient Age: 48 Gender: Male Attending MD: Shimon Solorzano DO, Procedure: Upper GI endoscopy Providers: Shimon Solorzano DO Referring MD: Referred Self, Joy Mccabe MD Indications: ALS with inability to swallow Medicines: Monitored Anesthesia Care Complications: No immediate complications. Estimated Blood Loss: Estimated blood loss: none. Procedure: Pre-Anesthesia Assessment: - Prior to the procedure, a History and Physical was performed, and patient medications and allergies were reviewed. The patient's tolerance of previous anesthesia was also reviewed. The risks and benefits of the procedure and the sedation options and risks were discussed with the patient. All questions were answered, and informed consent was obtained. Prior Anticoagulants: The patient has taken Eliquis (apixaban), last dose was 4 days prior to procedure. ASA Grade Assessment: IV - A patient with severe systemic disease that is a constant threat to life. After reviewing the risks and benefits, the patient was deemed in satisfactory condition to undergo the procedure. After obtaining informed consent, the endoscope was passed under direct vision. Throughout the procedure, the patient's blood pressure, pulse, and oxygen saturations were monitored continuously. The Endoscope was introduced through the mouth, and advanced to the second part of duodenum. The upper GI endoscopy was accomplished without difficulty. The patient tolerated the procedure well. Findings: The esophagus was normal. Localized mild inflammation characterized by erythema was found in the gastric body. Placement of an externally removable PEG with no T-fasteners was attempted but could not be successfully completed as 1:1 rebound was noted at the xiphoid process, not allowing for proper placement of PEG tube. The needle was passed. The examined duodenum was normal. Impression: - Normal esophagus. - Gastritis. - Normal examined duodenum. - An externally removable PEG placement was attempted but could not be successfully completed. The needle was passed. - No specimens collected. Recommendation: - Refer to a surgeon today for G-tube placement in the OR. - Continue present medications. Shimon Solorzano DO 02/09/2024 10:34:59 AM This report has been signed electronically. Note Initiated On: 02/09/2024 9:13 AM Number of Addenda: 0 I attest to the content of the Intraoperative Record and orders documented therein, exceptions below {[id number]}
[2024-02-09] MEDS: oxyCODONE HCL SOLN 5 MG/5 ML UDC NG SCH (12:00)
[2024-02-09] MEDS: ESCITALOPRAM OXALATE ORAL SOLN 20 MG/20 ML UDP PEG SCH (13:19)
--- NOTE | 2024-02-09 13:29 | Anesthesiology Progress Note ---
Date of Service February 09, 2024 Anesthesia Post Procedure Vital Signs Vital Signs: Temp Pulse Pulse Resp BP BP Pulse Ox 02/09/24 10:30 36.8 C 85 14 100 02/09/24 10:28 36.8 C 81 15 100 02/09/24 09:53 81 14 100 02/09/24 09:17 36.9 C 68 16 120/76 97 02/09/24 09:00 36.9 C 86 16 98 02/09/24 09:00 120/76 02/09/24 08:41 36.9 C 116 H 17 116/71 97 02/09/24 08:00 02/09/24 08:00 02/09/24 07:39 66 02/09/24 07:27 37.0 C 62 14 100 02/09/24 07:18 58 L 14 97 02/09/24 05:56 14 02/09/24 04:00 96/57 L 02/09/24 04:00 36.9 C 55 L 14 96 02/09/24 04:00 02/09/24 03:40 59 L 15 96 02/09/24 03:00 94/55 L 02/09/24 03:00 36.8 C 60 14 96 02/09/24 02:00 91/57 L 02/09/24 01:59 36.9 C 55 L 17 95 02/09/24 01:00 101/62 02/09/24 01:00 36.9 C 57 L 14 94 02/09/24 00:30 100/63 02/09/24 00:30 36.9 C 57 L 14 95 02/09/24 00:00 96/65 L 02/09/24 00:00 36.6 C 57 L 12 94 02/09/24 00:00 62 02/09/24 00:00 36.8 C 56 L 14 125/94 96 02/09/24 00:00 02/08/24 23:30 36.6 C 59 L 14 95 02/08/24 23:30 94/65 L 02/08/24 23:20 61 16 96 02/08/24 23:15 36.5 C 57 L 14 94 02/08/24 23:00 116/70 02/08/24 23:00 36.5 C 53 L 14 96 02/08/24 22:30 101/69 02/08/24 22:30 36.5 C 56 L 16 94 02/08/24 22:15 36.5 C 89/63 L 02/08/24 22:00 36.5 C 56 L 14 94 02/08/24 22:00 95/64 L 02/08/24 21:00 36.6 C 59 L 16 94 02/08/24 21:00 132/76 02/08/24 20:00 121/69 02/08/24 20:00 36.7 C 55 L 14 95 02/08/24 19:40 02/08/24 19:40 02/08/24 19:25 55 L 15 94 02/08/24 19:00 36.8 C 54 L 14 98 02/08/24 19:00 110/68 02/08/24 18:00 36.7 C 73 14 97 02/08/24 18:00 109/67 02/08/24 17:45 90/59 L 02/08/24 17:45 36.8 C 14 97 02/08/24 17:30 36.8 C 14 97 02/08/24 17:30 87/57 L 02/08/24 17:15 36.8 C 56 L 13 96 02/08/24 17:15 85/56 L 02/08/24 17:00 36.8 C 63 14 96 02/08/24 17:00 89/55 L 02/08/24 16:45 97/60 L 02/08/24 16:45 36.8 C 14 95 02/08/24 16:15 15 96 02/08/24 16:15 118/67 02/08/24 16:00 14 95 02/08/24 16:00 92/62 L 02/08/24 16:00 02/08/24 15:45 36.8 C 14 97 02/08/24 15:45 109/68 02/08/24 15:30 36.8 C 14 97 02/08/24 15:30 112/70 02/08/24 15:15 36.7 C 13 95 02/08/24 15:15 105/65 02/08/24 15:04 63 15 96 02/08/24 15:00 36.7 C 55 L 14 94 02/08/24 15:00 97/64 L 02/08/24 14:45 36.6 C 63 14 96 02/08/24 14:45 114/71 02/08/24 14:30 77/57 L 02/08/24 14:30 36.5 C 61 14 96 02/08/24 14:15 94/62 L 02/08/24 14:15 36.4 C L 49 L 14 95 02/08/24 14:00 36.4 C L 55 L 14 96 02/08/24 14:00 88/61 L 02/08/24 13:45 36.4 C L 48 L 14 96 02/08/24 13:45 105/72 02/08/24 13:30 93/65 L 02/08/24 13:30 36.3 C L 66 14 98 O2 Del Method FiO2 02/09/24 10:30 02/09/24 10:28 02/09/24 09:53 100 02/09/24 09:17 Mechanical Vent 02/09/24 09:00 02/09/24 09:00 02/09/24 08:41 02/09/24 08:00 Mechanical Vent 40 02/09/24 08:00 40 02/09/24 07:39 02/09/24 07:27 02/09/24 07:18 30 02/09/24 05:56 30 02/09/24 04:00 02/09/24 04:00 02/09/24 04:00 02/09/24 03:40 30 02/09/24 03:00 02/09/24 03:00 02/09/24 02:00 02/09/24 01:59 02/09/24 01:00 02/09/24 01:00 02/09/24 00:30 02/09/24 00:30 02/09/24 00:00 02/09/24 00:00 02/09/24 00:00 02/09/24 00:00 Mechanical Vent 30 02/09/24 00:00 30 02/08/24 23:30 02/08/24 23:30 02/08/24 23:20 30 02/08/24 23:15 02/08/24 23:00 02/08/24 23:00 02/08/24 22:30 02/08/24 22:30 02/08/24 22:15 02/08/24 22:00 02/08/24 22:00 02/08/24 21:00 02/08/24 21:00 02/08/24 20:00 02/08/24 20:00 02/08/24 19:40 Mechanical Vent 30 02/08/24 19:40 30 02/08/24 19:25 30 02/08/24 19:00 02/08/24 19:00 02/08/24 18:00 02/08/24 18:00 02/08/24 17:45 02/08/24 17:45 02/08/24 17:30 02/08/24 17:30 02/08/24 17:15 02/08/24 17:15 02/08/24 17:00 02/08/24 17:00 02/08/24 16:45 02/08/24 16:45 02/08/24 16:15 02/08/24 16:15 02/08/24 16:00 02/08/24 16:00 02/08/24 16:00 30 02/08/24 15:45 02/08/24 15:45 02/08/24 15:30 02/08/24 15:30 02/08/24 15:15 02/08/24 15:15 02/08/24 15:04 30 02/08/24 15:00 02/08/24 15:00 02/08/24 14:45 02/08/24 14:45 02/08/24 14:30 02/08/24 14:30 02/08/24 14:15 02/08/24 14:15 02/08/24 14:00 02/08/24 14:00 02/08/24 13:45 02/08/24 13:45 02/08/24 13:30 02/08/24 13:30 Pain Intensity Neck: Pain Intensity: 7 Transfer of Care Handoff Completed per policy Notes Mental Status: alert / awake / arousable Patient Amnestic to Procedure: Yes Nausea / Vomiting: adequately controlled Pain: adequately controlled Airway Patency, RR, SpO2: stable & adequate BP & HR: stable & adequate Hydration State: stable & adequate Anesthetic Complications: no major complications apparent and Pt Satisfied with anesthetic care
[2024-02-09] MEDS: HYDROmorphone INJ 1 MG/ML SYRINGE IV PRN (14:15)
--- NOTE | 2024-02-09 14:47 | Hospitalist Progress Note ---
Date of Service February 09, 2024 Assessment & Plan (1) Aspiration pneumonia: (2) Weakness generalized: Plan 48-year-old male with past medical history significant for ALS, orthostatic hypotension, irritable bowel syndrome, GERD, attention deficit disorder without hyperactivity, history of DVT and PE, depression with anxiety, wheelchair-bound at baseline presenting with shortness of breath for the last few days. Acute Hypoxic respiratory Failure Severe sepsis with septic shock POA RLL collapse Aspiration Pneumonia Pt presenting with SOB CTA chest on admission showed collapse of majority of right lower lobe with concern for pneumonia MRSA nares negative Patient was intubated, on mechanical ventilation in the ICU Underwent bronchoscopy, cultures pending Unable to be extubated in setting of progressive ALS (see below), s/p tracheostomy on 02/07 Continue on Zosyn; follow-up on cultures Was also in septic shock, continue hemodynamic support with vasopressors Goals of Care discussion- pt and desire full code status, tracheostomy, PEG Lower Extremity discoloration Asymptomatic Arterial Doppler with patent arteries on right, pt deferred on left extremity imaging. ALS quadriplegia in the setting of ALS and nonambulatory status On BiPAP while sleeping at home Goals of Care discussion as above -s/p tracheostomy on 02/07 -PEG tube to be placed by GI unsuccessful, surgery consulted for placement Hx of DVT and PE on Eliquis, currently on hold for trach procedure History of attention deficit disorder without hyperactivity Depression with anxiety continue home meds GERD on omeprazole Neuropathy On gabapentin DVT prophylaxis: Eliquis currently on hold for procedure Diet: OG Tube feeds currently on hold, plan for PEG placement Disposition: currently in ICU, paln for LTAC Admission and Anticipated Discharge Date Admission Date: February 06, 2024 Subjective pt seen while down in the ICU. Sleepy but more awake today. Nodding to questions asked, denies pain. Review of Systems Review of Systems: All systems reviewed & are unremarkable except as noted in Subjective Physical Exam Physical Exam: General: laying in bed, eyes closed, resting comfortably HEENT: trach in place CV: RRR Resp: Breath sounds clear on anterior chest Abd: soft Extremities: SCDs on lower extremities Results & Data Results & Data Vital Signs (Past 12 Hours) Vital Signs Temp Pulse Pulse Resp BP BP Pulse Ox 02/09/24 14:25 88/61 L 02/09/24 14:18 36.9 C 83 14 100 02/09/24 14:05 105/72 02/09/24 14:00 36.9 C 93 H 15 100 02/09/24 14:00 111/73 02/09/24 13:55 126/78 02/09/24 13:51 36.9 C 88 19 91 02/09/24 13:45 109/70 02/09/24 13:36 36.9 C 67 14 99 02/09/24 13:35 115/71 02/09/24 13:33 36.9 C 68 15 96 02/09/24 13:00 129/73 02/09/24 13:00 36.7 C 58 L 15 82 L 02/09/24 12:55 151/93 H 02/09/24 12:52 36.5 C 116 H 14 96 02/09/24 12:50 132/71 02/09/24 12:48 36.8 C 78 14 93 02/09/24 12:45 136/76 02/09/24 12:44 36.8 C 89 17 99 02/09/24 12:35 36.8 C 79 14 99 02/09/24 12:26 36.7 C 64 14 100 02/09/24 12:25 116/69 02/09/24 12:20 111/64 02/09/24 12:15 108/67 02/09/24 12:00 02/09/24 10:46 36.7 C 69 14 100 02/09/24 10:45 109/66 02/09/24 10:45 36.7 C 71 14 100 02/09/24 10:40 36.7 C 70 14 100 02/09/24 10:40 104/67 02/09/24 10:35 108/69 02/09/24 10:35 36.7 C 80 17 100 02/09/24 10:30 36.8 C 85 14 100 02/09/24 10:28 36.8 C 81 15 100 02/09/24 09:53 81 14 100 02/09/24 09:17 36.9 C 68 16 120/76 97 02/09/24 09:00 36.9 C 86 16 98 02/09/24 09:00 120/76 02/09/24 08:41 36.9 C 116 H 17 116/71 97 02/09/24 08:00 02/09/24 08:00 02/09/24 07:39 66 02/09/24 07:27 37.0 C 62 14 100 02/09/24 07:18 58 L 14 97 02/09/24 05:56 14 02/09/24 04:00 96/57 L 02/09/24 04:00 36.9 C 55 L 14 96 02/09/24 04:00 02/09/24 03:40 59 L 15 96 02/09/24 03:00 94/55 L 02/09/24 03:00 36.8 C 60 14 96 O2 Del Method FiO2 02/09/24 14:25 02/09/24 14:18 02/09/24 14:05 02/09/24 14:00 02/09/24 14:00 02/09/24 13:55 02/09/24 13:51 02/09/24 13:45 02/09/24 13:36 02/09/24 13:35 02/09/24 13:33 02/09/24 13:00 02/09/24 13:00 02/09/24 12:55 02/09/24 12:52 02/09/24 12:50 02/09/24 12:48 02/09/24 12:45 02/09/24 12:44 02/09/24 12:35 02/09/24 12:26 02/09/24 12:25 02/09/24 12:20 02/09/24 12:15 02/09/24 12:00 40 02/09/24 10:46 02/09/24 10:45 02/09/24 10:45 02/09/24 10:40 02/09/24 10:40 02/09/24 10:35 02/09/24 10:35 02/09/24 10:30 02/09/24 10:28 02/09/24 09:53 100 02/09/24 09:17 Mechanical Vent 02/09/24 09:00 02/09/24 09:00 02/09/24 08:41 02/09/24 08:00 Mechanical Vent 40 02/09/24 08:00 40 02/09/24 07:39 02/09/24 07:27 02/09/24 07:18 30 02/09/24 05:56 30 02/09/24 04:00 02/09/24 04:00 02/09/24 04:00 30 02/09/24 03:40 30 02/09/24 03:00 02/09/24 03:00
--- NOTE | 2024-02-09 16:04 | Surgery Consultation ---
<Statement entered by Ozzy Lopez DO - 02/09/24 20:23> I have seen and examined this patient with the surgical PA, I agree with the plan. Date of Consultation February 09, 2024 Assessment & Plan (1) Decreased oral intake: This is a 48yM with a PMH of progressing ALS, GERD, h/o PE on blood thinners/eliquis who presented to the [facility] ED on 02/05/24 with shortness of breath. Workup revealed pneumonia and he ultimately required intubation then eventual trach placement. He remains ventilated. Patient and family wish to proceed with all treatments and has been in discussions with palliative regarding PEG tube for nutrition and medications. He is agreeable to a PEG tube and GI was consulted on the patient and a PEG was attempted today without success. Therefore our services have been consulted for consideration of a surgical G tube. Patient wishes to be able to get back to work again. Family on board with this. Apparently pt may be transferred to [facility] over the wknd where they also have services to attempt PEG tube. If patient remains admitted to the hospital we can try a 2nd attempt at PEG tube and revert to open gastrostomy tube in the OR if needed this upcoming Monday. Please hold blood thinners in anticipation for any surgical/procedures to be performed on 02/11 if remains in house. otherwise if transferred they can consider attempting PEG tube at outside facility, although it was unsuccessful here they may have a hard time getting it. History of Present Illness Attending Physician: Joy Mccabe MD History of Present Illness This is a 48yM with a PMH of progressing ALS, GERD, h/o PE on blood thinners/eliquis who presented to the [facility] ED on 02/05/24 with shortness of breath. Workup revealed pneumonia and he ultimately required intubation then eventual trach placement. Patient and family wish to proceed with all treatments and has been in discussions with palliative regarding PEG tube for nutrition and medications. He is agreeable to a PEG tube and GI was consulted on the patient and a PEG was attempted today without success. Therefore our services have been consulted for consideration of a surgical G tube. Patient wishes to be able to get back to work again. Family on board with his wishes. Apparently pt may be transferred to [facility] over the wknd where they also have services to attempt PEG tube. Allergies Allergy/AdvReac Type Severity Reaction Status Date / Time tramadol AdvReac Unknown GI Verified 02/05/24 22:52 discomfort Home Medications Medication Instructions Recorded Confirmed Type escitalopram oxalate 20 mg tablet 20 mg PO QAM 01/31/19 02/05/24 History omeprazole 20 mg capsule,delayed 20 mg PO QAM 01/31/19 02/05/24 History release apixaban 5 mg tablet (Eliquis) 5 mg PO BID 11/19/20 02/05/24 History ipratropium 0.5 mg-albuterol 3 mg 3 ml inhalation Q6H PRN WHEEZING 07/25/23 02/05/24 History (2.5 mg base)/3 mL nebulization OR SOB soln ondansetron 4 mg disintegrating 4 mg PO Q6H PRN nausea and 07/25/23 02/05/24 Rx tablet vomiting #14 tabs ergocalciferol (vitamin D2) 1,250 50,000 unit PO Q7D #7 caps 08/17/23 02/05/24 Rx mcg (50,000 unit) capsule gabapentin 300 mg capsule 300 mg PO TID 11/14/23 02/05/24 History mirtazapine 15 mg tablet 15 mg PO HS 11/14/23 02/05/24 History clonazepam 0.5 mg tablet 0.25 - 0.5 mg PO HS 02/05/24 02/05/24 History dextroamphetamine-amphetamine 15 15 mg PO TID 02/05/24 02/05/24 History mg tablet scopolamine base 1 mg over 3 days 1 patch topical [id number] 02/05/24 02/05/24 History transdermal patch Patient History Medical History Depression (11/28/12) Bronchitis (11/28/12) History of ventilator dependency Acute hypoxemic respiratory failure Acute dyspnea SBO (small bowel obstruction) History of pulmonary embolism ADD (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 GERD (gastroesophageal reflux disease) ALS (amyotrophic lateral sclerosis) Surgical History Hx of tracheostomy History of vasectomy H/O rhinoplasty S/P left knee arthroscopy Family History Father Pulmonary embolism Mother Hypertension Social History Smoking Status: Never smoker Second Hand Exposure: No; Do You Dip or Chew Tobacco: No; Tobacco Cessation Education Requested by Patient: No Hx Alcohol Use: No Hx Substance Use: No Preferred Language: Korean Communication Ability: Impaired Theatre Director Required: No Beliefs That Will Affect Care: None marital status: Current Living Situation: Spouse current occupational status: employed Other Information That Helps Us Care for You: No Feels Safe at Home: Yes Safety Concerns: Feels Safe At This Time Assistive Devices: CPAP, Mechanical Lift, Scooter/Electric Scooter and Other Review of Systems Review of Systems: Other pt on vent via trach. majority of HPI obtained from family at bedside and medical providers caring for patient Physical Exam Physical Exam: awake Constitutional: + thin Neck: + trach Respiratory: on vent via trach Gastrointestinal (Abdomen): Percussion/Palpation: abdomen soft; abdomen nontender Results & Data Vital Signs (Past 12 Hours) Vital Signs Temp Pulse Pulse Resp BP BP Pulse Ox 02/09/24 15:55 76 14 100 02/09/24 14:25 88/61 L 02/09/24 14:18 98.4 F 83 14 100 02/09/24 14:05 105/72 02/09/24 14:00 98.4 F 93 H 15 100 02/09/24 14:00 111/73 02/09/24 13:55 126/78 02/09/24 13:51 98.4 F 88 19 91 02/09/24 13:45 109/70 02/09/24 13:36 98.4 F 67 14 99 02/09/24 13:35 115/71 02/09/24 13:33 98.4 F 68 15 96 02/09/24 13:00 129/73 02/09/24 13:00 98.1 F 58 L 15 82 L 02/09/24 12:55 151/93 H 02/09/24 12:52 97.7 F 116 H 14 96 02/09/24 12:50 132/71 02/09/24 12:48 98.2 F 78 14 93 02/09/24 12:45 136/76 02/09/24 12:44 98.2 F 89 17 99 02/09/24 12:35 98.2 F 79 14 99 02/09/24 12:26 98.1 F 64 14 100 02/09/24 12:25 116/69 02/09/24 12:20 111/64 02/09/24 12:15 108/67 02/09/24 12:00 02/09/24 10:46 98.1 F 69 14 100 02/09/24 10:45 109/66 02/09/24 10:45 98.1 F 71 14 100 02/09/24 10:40 98.1 F 70 14 100 02/09/24 10:40 104/67 02/09/24 10:35 108/69 02/09/24 10:35 98.1 F 80 17 100 02/09/24 10:30 98.2 F 85 14 100 02/09/24 10:28 98.2 F 81 15 100 02/09/24 09:53 81 14 100 02/09/24 09:17 98.4 F 68 16 120/76 97 02/09/24 09:00 98.4 F 86 16 98 02/09/24 09:00 120/76 02/09/24 08:41 98.4 F 116 H 17 116/71 97 02/09/24 08:00 02/09/24 08:00 02/09/24 07:39 66 02/09/24 07:27 98.6 F 62 14 100 02/09/24 07:18 58 L 14 97 02/09/24 05:56 14 O2 Del Method FiO2 02/09/24 15:55 02/09/24 14:25 02/09/24 14:18 02/09/24 14:05 02/09/24 14:00 02/09/24 14:00 02/09/24 13:55 02/09/24 13:51 02/09/24 13:45 02/09/24 13:36 02/09/24 13:35 02/09/24 13:33 02/09/24 13:00 02/09/24 13:00 02/09/24 12:55 02/09/24 12:52 02/09/24 12:50 02/09/24 12:48 02/09/24 12:45 02/09/24 12:44 02/09/24 12:35 02/09/24 12:26 02/09/24 12:25 02/09/24 12:20 02/09/24 12:15 02/09/24 12:00 40 02/09/24 10:46 02/09/24 10:45 02/09/24 10:45 02/09/24 10:40 02/09/24 10:40 02/09/24 10:35 02/09/24 10:35 02/09/24 10:30 02/09/24 10:28 02/09/24 09:53 100 02/09/24 09:17 Mechanical Vent 02/09/24 09:00 02/09/24 09:00 02/09/24 08:41 02/09/24 08:00 Mechanical Vent 40 02/09/24 08:00 40 02/09/24 07:39 02/09/24 07:27 02/09/24 07:18 30 02/09/24 05:56 30 PG Care Time/CCT Total # of Minutes Spent Total Time Spent with Patient: Total time spent is greater than 50% in coordination of care (as documented) at patient's floor/unit and/or counseling patient: Coding Level of Care Code 04091 IN/OBS CONSULT LVL 3,45M Diagnoses Decreased oral intake R63.8
[2024-02-09] MEDS: MIDODRINE HCL 2.5 MG TAB PO SCH (17:40)
--- NOTE | 2024-02-09 23:53 | Communication Note ---
Date of Service: February 09, 2024 Brief Paymetric Note Suleiman is s/p trach and has been accepted at [facility] in [place] Anticipate dc over weekend, he has been more awake and alert, reaffirms plan to stay on an aggressive plan of care with the aim to live as long as possible. [facility] completed FMLA paperwork for him. is SDM Patient has an AD per , she is supposed to provide a copy for EMR scanning. Mark Forged consulted to help with GOC which have been clarified and a dc plan is underway. For now, will sign off and remain available for re engagement as needed. has been provided contact info for our OP office/I have offered to help with ongoing ALS symptom mgt needs if desired. aims to bring pt back to their apartment in [place] with home vent and home health support. No charge submitted. TS 15min Thank you for allowing us to participate in the ongoing care of this patient. Please don't hesitate to call or page with any additional concerns. Elaina Elizalde DNP Palliative Care
[2024-02-10 05:30] LABS: Basophils # (auto) 0.04 K/uL (0.00-0.20); Basophils % (auto) 0.6 %; Eosinophils # (auto) 0.12 K/uL (0.00-0.50); Eosinophils % (auto) 1.8 %; Hematocrit (blood only) 29.4 % (42.0-52.0); Hemoglobin 9.7 g/dl (14.0-18.0); Immature Granulocytes # (auto) 0.01 K/uL (0.01-0.20); Immature Granulocytes % (auto) 0.2 %; Lymphocytes # (auto) 1.62 K/uL (1.20-3.40); Lymphocytes % (auto) 24.4 %; Mean Corpuscular Hemoglobin 29.2 pg (25.0-34.0); Mean Corpuscular Volume 88.6 fL (80.0-100.0); Mean Platelet Volume 10.8 fL (9.4-12.4); Monocytes # (auto) 0.54 K/uL (0.11-0.59); Monocytes % (auto) 8.1 %; Neutrophils # (auto) 4.31 K/uL (1.40-6.50); Neutrophils % (auto) 64.9 %; Platelet Count 290 K/uL (130-400); RDW Coefficient of Variation 12.8 % (11.5-14.5); RDW Standard Deviation 41.4 fL (36.4-46.3); Red Blood Count 3.32 M/uL (4.70-6.10); White Blood Count 6.64 K/ul (4.8-10.8)
[2024-02-10 06:11] LABS: Anion Gap 8 (3-11); Blood Urea Nitrogen 2 mg/dl (6-23); Calcium 7.6 mg/dl (8.6-10.3); Carbon Dioxide 30 mmol/L (21-32); Chloride 100 mmol/L (98-107); Creatinine Clr Calc Pharmacy 421.1 ml/min; Est GFR (African American) > 150.0 ml/min; Est GFR (Non-African American) > 150.0 ml/min; Glucose 78 mg/dl (70-99(Fasting)); Magnesium 1.7 mg/dl (1.7-2.4); Phosphorus 3.7 mg/dl (2.5-4.9); Potassium 3.2 mmol/L (3.5-5.1); Sodium 138 mmol/L (136-145)
[2024-02-10] MEDS: POTASSIUM CHLORIDE 20 MEQ/15 ML UDC PO STA (06:35)
[2024-02-10] MEDS: MAGNESIUM SULFATE / D5W 1 GM/100 ML BAG IV SCH (06:37)
--- NOTE | 2024-02-10 08:20 | XRay Report ---
XR chest 1V portable HISTORY: Intubation. Respiratory failure. COMPARISON: Chest 02/09/2024. FINDINGS: Tracheostomy tube is in good position. Nasogastric tube terminates below the diaphragm. The tip is not included on this study. No pneumothorax. No pleural effusions. Right lower lobe airspace opacity persists. No evidence for pulmonary edema. The heart is normal in size. IMPRESSION: 1. Satisfactory support line placement. 2. Right lower lobe airspace opacity persists. This likely represents a pneumonia and could be due to aspiration ACT 112: Negative or not required by law. Electronically signed by: Eric Renee M.D. 02/10/2024 8:18 AM
--- NOTE | 2024-02-10 09:39 | Critical Care Progress Note ---
Date of Service February 10, 2024 Assessment & Plan (1) Acute hypoxemic respiratory failure: (2) GERD (gastroesophageal reflux disease): (3) ALS (amyotrophic lateral sclerosis): (4) Aspiration into respiratory tract: (5) Pneumonia: (6) History of pulmonary embolism: Plan Assessment: Pt is a 48 yo male with a hx of ALS who is wheelchair bound with quadriplegia, IBS, GERD, ADD, anxiety and depression, and hx DVT and PE who presents to the hospital on 02/04 for several days of worsening SOB and respiratory distress admitted to the ICU for ongoing respiratory distress and aspiration requiring intubation and mechanical ventilation. Critical care indication: Need for mechanical ventilation Need for vasopressor support 24 hour events: No major events. Maintain vasopressors to maintain maps above 65 mmHg. Neurologic Spoke to pt's [facility] neurologist on admission as pt has progressive neurologic disease ALS. Patient status post tracheostomy 02/08/2024. Case management working on placement to LTAC. Continue pain control with scheduled oxycodone and as needed antibiotics. Cardiac Maintain maps above 65 mmHg with as needed norepinephrine. Last echo in our system is 2019 with EF 50-55% with right ventricular and IVC dilation. US negative for DVT and CTA neg for PE. Takes eliquis BID for hx PE/DVT, on lovenox now for prophylaxis. Respiratory Has hx of ALS. On admission, CXR showed RLL opacity and chest CTA shows no PE but patchy opacities in right upper lobe with debris in right lower lobe most consistent with aspiration pneumonia. Patient currently on full vent support via tracheostomy. Unable to be weaned off of ventilator. Treating right lower lobe pneumonia. Status post bronchoscopy x 2 with clearance of mucous. Gastrointestinal GI unable to place PEG tube. General surgery consulted and will reattempt PEG tube placement on Monday if patient remains in the hospital. Reinitiate cont inuous tube feeds. Renal/electrolytes No major issues. Replace electrolytes as needed. Genitourinary No concerns at this time, walters catheter for strict I/O's Endocrine Blood sugars stable. Pharmacy consult for glycemic management. Hematologic Patient with anemia, hemoglobin stable over the last 2 days. Will de-escalate from Protonix 40 twice daily back to the patient's home dose of Prevacid. Infectious disease CTA on admission shows large right lower lobe opacity, seems most consistent with aspiration +/- pneumonia component. Cultures negative thus far. Will de- escalate Zosyn to Unasyn. Integumentary No concerns at this time Lines/access Ultrasound PIV left arm, walters Prophylaxis DVT ppx: home eliquis held, Lovenox restarted. Will likely restart Eliquis tomorrow if no signs of bleeding. GI ppx: P.o. Prevacid Awaiting placement to LTAC. CRITICAL CARE TIME - I have personally spent 38 minutes of critical care time in the direct management of this patient. This is a life/limb threatening event. This includes time spent evaluating patient, direct bedside care, chart review, placing orders, interpretation of diagnostic studies, discussion with consultants, patient, and family members, as well as other required patient management activities. This time is exclusive of all separately billable procedures, and teaching time and separate from and in addition to any other critical care service time. Admission and Anticipated Discharge Date Admission Date: February 06, 2024 Subjective Patient seen and examined. No significant issues overnight. Remains on low- dose Levophed. Review of Systems Review of Systems: Review of systems is somewhat limited due to the patient's tracheostomy status and nonverbal status. Patient denies any major complaints of pain. Physical Exam Physical Exam: General: With trach on ventilator, asleep initially but easily able to be awakened and responsive by head nods HEENT: Normocephalic, atraumatic, Resp: On vent via trach, scattered rhonchi noted throughout lung orozco today improved from yesterday Cardio: Regular rhythm and rhythm, no murmurs GI: Soft and nontender, nondistended, bowel sounds hypoactive Skin: Warm, dry, no rashes on visible skin Results & Data Results & Data Vital Signs (Past 12 Hours) Vital Signs Temp Pulse Resp BP Pulse Ox O2 Del Method FiO2 02/10/24 08:03 36.9 C 96 H 17 100 02/10/24 08:00 30 02/10/24 08:00 108/69 02/10/24 07:49 103/67 02/10/24 07:48 36.9 C 67 14 99 02/10/24 07:45 36.9 C 66 14 98 02/10/24 07:07 61 14 96 30 02/10/24 07:06 36.8 C 62 14 96 02/10/24 06:50 117/70 02/10/24 06:48 36.7 C 92 H 17 100 02/10/24 06:39 36.8 C 65 14 100 02/10/24 06:15 109/66 02/10/24 06:09 36.8 C 64 17 100 02/10/24 06:00 36.9 C 63 17 100 02/10/24 05:30 36.9 C 66 14 100 02/10/24 05:00 37.0 C 63 14 100 02/10/24 04:45 109/72 02/10/24 04:27 36.9 C 78 14 99 02/10/24 04:25 111/73 02/10/24 04:15 144/91 H 02/10/24 04:15 66 14 97 30 02/10/24 04:12 36.9 C 68 14 99 02/10/24 04:03 36.9 C 60 14 99 02/10/24 04:00 30 02/10/24 03:42 36.8 C 61 14 99 02/10/24 03:00 91/56 L 02/10/24 02:45 102/59 L 02/10/24 02:45 36.6 C 59 L 14 100 02/10/24 02:30 91/54 L 02/10/24 02:30 36.8 C 60 14 100 02/10/24 02:19 36.8 C 61 14 86/53 L 99 Mechanical Vent 02/10/24 02:00 36.8 C 57 L 14 100 02/10/24 01:45 83/53 L 02/10/24 00:11 36.9 C 64 14 114/74 99 02/09/24 23:48 66 02/09/24 23:35 37.0 C 67 14 98 02/09/24 23:35 96/61 L 02/09/24 23:33 91 H 22 100 30 02/09/24 23:30 95/64 L 02/09/24 23:25 30 02/09/24 23:24 36.9 C 66 14 126/79 98 02/09/24 22:57 36.9 C 63 14 98 02/09/24 22:55 103/73 02/09/24 22:50 101/64 02/09/24 22:00 37.0 C 65 14 99 02/09/24 22:00 98/63 L Coding Level of Care Code 42472 CRITICAL CARE 1ST 30-74M Diagnoses Acute hypoxemic respiratory failure J96.01 GERD (gastroesophageal reflux disease) K21.9 ALS (amyotrophic lateral sclerosis) G12.21 Aspiration into respiratory tract T17.908A Pneumonia J18.9 History of pulmonary embolism Z86.711
[2024-02-10] MEDS: ENOXAPARIN INJ 40 MG/0.4 ML SYR SQ SCH (10:08)
[2024-02-10] MEDS: MIDODRINE HCL 2.5 MG TAB PO SCH (11:17)
[2024-02-10] MEDS: ATROPINE SULFATE 0.1 MG/ML 10ML SYR IV ONE (11:19)
[2024-02-10] MEDS: HYDROmorphone INJ 1 MG/ML SYRINGE IV PRN (12:54)
[2024-02-10] MEDS: AMPICILLIN/SULBACTAM SOD 3,000 MG in SODIUM CHLOR 0.9% MINI-B 100 ML IV SCH (12:58)
--- NOTE | 2024-02-10 13:48 | Hospitalist Progress Note ---
Date of Service February 10, 2024 Assessment & Plan (1) Aspiration pneumonia: (2) Weakness generalized: Plan 48-year-old male with past medical history significant for ALS, orthostatic hypotension, irritable bowel syndrome, GERD, attention deficit disorder without hyperactivity, history of DVT and PE, depression with anxiety, wheelchair-bound at baseline presenting with shortness of breath for the last few days. Acute Hypoxic respiratory Failure Severe sepsis with septic shock POA RLL collapse Aspiration Pneumonia Pt presenting with SOB CTA chest on admission showed collapse of majority of right lower lobe with concern for pneumonia MRSA nares negative Patient was intubated, on mechanical ventilation in the ICU Underwent bronchoscopy, cultures pending Unable to be extubated in setting of progressive ALS (see below), s/p tracheostomy on 02/07 Continue on Zosyn; follow-up on cultures Was also in septic shock, continue hemodynamic support with vasopressors Goals of Care discussion- pt and desire full code status, tracheostomy, PEG Lower Extremity discoloration Asymptomatic Arterial Doppler with patent arteries on right, pt deferred on left extremity imaging. ALS quadriplegia in the setting of ALS and nonambulatory status On BiPAP while sleeping at home Goals of Care discussion as above -s/p tracheostomy on 02/07 -PEG tube to be placed by GI unsuccessful, surgery consulted for placement -per Surgery, can be attempted at LTAC or on 02/11 if still in house Hx of DVT and PE on Eliquis, currently on hold for trach procedure History of attention deficit disorder without hyperactivity Depression with anxiety continue home meds GERD on omeprazole Neuropathy On gabapentin DVT prophylaxis: Eliquis currently on hold for procedure Diet: OG Tube feeds, plan for PEG placement Disposition: currently in ICU, plan for LTAC Admission and Anticipated Discharge Date Admission Date: February 06, 2024 Subjective pt seen in 104. Nodding yes, no. Denied pain. Review of Systems Review of Systems: All systems reviewed & are unremarkable except as noted in Subjective Physical Exam Physical Exam: General: laying in bed, eyes closed, resting comfortably HEENT: trach in place CV: RRR Resp: Breath sounds clear on anterior chest Abd: soft Extremities: no edema lower extremities Results & Data Results & Data Vital Signs (Past 12 Hours) Vital Signs Temp Pulse Resp BP Pulse Ox O2 Del Method FiO2 02/10/24 11:00 37.1 C 63 14 99 Mechanical Vent 02/10/24 10:54 37.0 C 66 14 98 Mechanical Vent 02/10/24 10:45 126/70 02/10/24 10:21 37.0 C 55 L 14 98 02/10/24 10:19 102/65 02/10/24 10:18 37.0 C 60 14 99 02/10/24 10:00 93/56 L 02/10/24 10:00 36.9 C 59 L 14 98 02/10/24 09:45 36.9 C 57 L 14 97 02/10/24 09:45 89/57 L 02/10/24 09:33 36.9 C 60 14 98 02/10/24 09:30 90/56 L 02/10/24 09:27 36.9 C 53 L 14 97 02/10/24 09:00 36.9 C 63 14 97 02/10/24 08:45 90/55 L 02/10/24 08:45 36.9 C 63 14 98 Mechanical Vent 02/10/24 08:21 77/52 L 02/10/24 08:18 76/47 L 02/10/24 08:15 79/49 L 02/10/24 08:15 36.9 C 60 14 98 Mechanical Vent 02/10/24 08:03 36.9 C 96 H 17 100 02/10/24 08:00 30 02/10/24 08:00 108/69 02/10/24 07:49 103/67 02/10/24 07:48 36.9 C 67 14 99 02/10/24 07:45 36.9 C 66 14 98 02/10/24 07:07 61 14 96 30 02/10/24 07:06 36.8 C 62 14 96 02/10/24 06:50 117/70 02/10/24 06:48 36.7 C 92 H 17 100 02/10/24 06:39 36.8 C 65 14 100 02/10/24 06:15 109/66 02/10/24 06:09 36.8 C 64 17 100 02/10/24 06:00 36.9 C 63 17 100 02/10/24 05:30 36.9 C 66 14 100 02/10/24 05:00 37.0 C 63 14 100 02/10/24 04:45 109/72 02/10/24 04:27 36.9 C 78 14 99 02/10/24 04:25 111/73 02/10/24 04:15 144/91 H 02/10/24 04:15 66 14 97 30 02/10/24 04:12 36.9 C 68 14 99 02/10/24 04:03 36.9 C 60 14 99 02/10/24 04:00 30 02/10/24 03:42 36.8 C 61 14 99 02/10/24 03:00 91/56 L 02/10/24 02:45 102/59 L 02/10/24 02:45 36.6 C 59 L 14 100 02/10/24 02:30 91/54 L 02/10/24 02:30 36.8 C 60 14 100 02/10/24 02:19 36.8 C 61 14 86/53 L 99 Mechanical Vent 02/10/24 02:00 36.8 C 57 L 14 100
[2024-02-10] MEDS: oxyCODONE HCL SOLN 5 MG/5 ML UDC NG PRN (19:28)
[2024-02-11] MEDS: HYDROmorphone INJ 0.5 MG/0.5 ML SYR IV PRN (00:20)
[2024-02-11 04:55] LABS: Basophils # (auto) 0.04 K/uL (0.00-0.20); Basophils % (auto) 0.4 %; Eosinophils % (auto) 1.9 %; Hematocrit (blood only) 33.4 % (42.0-52.0); Hemoglobin 11.1 g/dl (14.0-18.0); Immature Granulocytes # (auto) 0.07 K/uL (0.01-0.20); Immature Granulocytes % (auto) 0.6 %; Lymphocytes # (auto) 2.44 K/uL (1.20-3.40); Lymphocytes % (auto) 22.6 %; Mean Corpuscular Hemoglobin 29.5 pg (25.0-34.0); Mean Corpuscular Hgb Conc 33.2 g/dL (32.0-36.0); Mean Corpuscular Volume 88.8 fL (80.0-100.0); Monocytes # (auto) 1.13 K/uL (0.11-0.59); Monocytes % (auto) 10.5 %; Neutrophils # (auto) 6.93 K/uL (1.40-6.50); Platelet Count 311 K/uL (130-400); RDW Coefficient of Variation 13.2 % (11.5-14.5); RDW Standard Deviation 42.7 fL (36.4-46.3); Red Blood Count 3.76 M/uL (4.70-6.10); White Blood Count 10.81 K/ul (4.8-10.8)
[2024-02-11 05:09] LABS: Anion Gap 5 (3-11); Calcium 8.1 mg/dl (8.6-10.3); Carbon Dioxide 30 mmol/L (21-32); Chloride 101 mmol/L (98-107); Magnesium 1.9 mg/dl (1.7-2.4); Potassium 4.4 mmol/L (3.5-5.1); Sodium 136 mmol/L (136-145)
[2024-02-11 05:13] LABS: iSTAT Allen Test Pass; iSTAT Art Bld Gas pCO2 Correct 44 mmHg (35-46); iSTAT Art Bld Gas pH Corrected 7.472 (7.35-7.45); iSTAT Arterial Blood Gas HCO3 32 meg/L (19-24); iSTAT Arterial Blood Gas pCO2 43 mmHg (35-46); iSTAT Arterial Blood Gas pH 7.48 (7.35-7.45); iSTAT Arterial Blood Gas pO2 59 mmHg (80-95); iSTAT Arterial Blood Gas pO2 C 61; iSTAT Carbon Dioxide 34 mmol/L (24-31); iSTAT FiO2 30 %; iSTAT Hematocrit 31 % (42-52); iSTAT Hemoglobin 10.5 g/dl (14.0-18.0); iSTAT Potassium 3.5 mmol/L (3.3-5.0); iSTAT Site R Radial; iSTAT Sodium 136 mmol/L (135-144)
[2024-02-11 05:24] LABS: Blood Urea Nitrogen 2 mg/dl (6-23); Creatinine Clr Calc Pharmacy 440.9 ml/min; Est GFR (African American) > 150.0 ml/min; Est GFR (Non-African American) > 150.0 ml/min; Glucose 126 mg/dl (70-99(Fasting))
--- NOTE | 2024-02-11 07:19 | Critical Care Progress Note ---
Date of Service February 11, 2024 Assessment & Plan (1) Acute hypoxemic respiratory failure: (2) GERD (gastroesophageal reflux disease): (3) ALS (amyotrophic lateral sclerosis): (4) Aspiration into respiratory tract: (5) Pneumonia: (6) History of pulmonary embolism: Plan Assessment: Pt is a 48 yo male with a hx of ALS who is wheelchair bound with quadriplegia, IBS, GERD, ADD, anxiety and depression, and hx DVT and PE who presents to the hospital on 02/04 for several days of worsening SOB and respiratory distress admitted to the ICU for ongoing respiratory distress and aspiration requiring intubation and mechanical ventilation. 24 hour events: No major events. Maintain vasopressors to maintain maps above 65 mmHg. Neurologic Spoke to pt's [facility] neurologist on admission as pt has progressive neurologic disease ALS. Patient status post tracheostomy 02/08/2024. Continue pain control with scheduled oxycodone and as needed antibiotics. Cardiac --Shock Random cortisol only 13 Does have right lower lobe pneumonia last echo in our system is 2019 with EF 50-55% with right ventricular and IVC dilation. US negative for DVT and CTA neg for PE. Takes eliquis BID for hx PE/DVT, on lovenox now for prophylaxis. Continue with vasopressors to keep MAP greater than 65 Respiratory -- Acute respiratory failure with hypoxia Has hx of ALS. On admission, CXR showed RLL opacity and chest CTA shows no PE but patchy opacities in right upper lobe with debris in right lower lobe most consistent with aspiration pneumonia. S/p tracheostomy Treating right lower lobe pneumonia. Status post bronchoscopy x 2 with clearance of mucous. Bronc culture negative for any bacteria. Is growing Rosalba which is most likely contaminant Gastrointestinal GI unable to place PEG tube. General surgery consulted and will reattempt PEG tube placement on Monday if patient remains in the hospital Renal/electrolytes No major issues. Replace electrolytes as needed. Genitourinary No concerns at this time, walters catheter for strict I/O's Endocrine Continue with ICU hyperglycemia protocol Hematologic -- Normocytic anemia Monitor H&H Infectious disease CTA on admission shows large right lower lobe opacity, seems most consistent with aspiration +/- pneumonia component. Cultures negative thus far. Antibiotics de-escalated to Unasyn on 02/10/2024 Integumentary No concerns at this time --Prophylaxis VTE: Lovenox GI: Lansoprazole Lines: Peripheral Diet: Tube feeds Plan: In/out: -1.3 L, urine output 2950 Patient's random cortisol was only 13 and he has been eating high doses of Levophed I will start the patient on hydrocortisone. Continue with midodrine for the time being. Complete the course of antibiotics for total of 7 days Possible surgical PEG tube placement tomorrow. Hypomagnesemia being replaced I have personally spent 36 minutes of critical care time in the direct management of this patient. This is a life/limb threatening event. This includes time spent evaluating patient, direct bedside care, chart review, placing orders, interpretation of diagnostic studies, discussion with consultants, patient, and family members, as well as other required patient management activities. This time is exclusive of all separately billable procedures, and teaching time and separate from and in addition to any other critical care service time. Please note the above document was generated using voice recognition software. It may contain grammatical, syntax or spelling errors. Admission and Anticipated Discharge Date Admission Date: February 06, 2024 Subjective Patient seen and examined at bedside. No acute distress, notable symptoms overnight Was on 0.14 of Levophed at the time of examination with MAP in the high 80s. I went down on Levophed 2.1 Denied any headache, no abdominal pain, no chest pain. He was oriented to self and answering questions by nodding his head Has been afebrile Tolerating tube feeds Review of Systems 2 Review of Systems: All systems reviewed & are unremarkable except as noted in Subjective Physical Exam 2 Physical Exam: Constitutional: No acute distress HEENT: EOMI, PERRLA Respiratory system: Decreased air entry bilaterally, no wheeze, no rhonchi, positive crackles bilaterally CVS: S1-S2 positive, no murmurs or gallops Abdomen: Soft, nontender, nondistended, positive bowel sounds x4 Extremities: +2 pulses bilaterally radialis/ dorsalis pedis, no cyanosis, +2 pitting edema bilateral lower extremity Neuro: Awake alert oriented self Psych: Flat mood and affect G/U: Positive Walters Skin: no rashes, warm and dry Lymphatic: no cervical or axillary lymphadenopathy Results & Data Results & Data Vital Signs (Past 12 Hours) Vital Signs Temp Pulse Resp BP Pulse Ox O2 Del Method FiO2 02/11/24 06:00 85/57 L 02/11/24 06:00 37.3 C 63 14 97 02/11/24 05:00 37.5 C 72 14 100 02/11/24 04:00 37.4 C 62 14 96 02/11/24 04:00 30 02/11/24 03:09 37.3 C 56 L 14 97/63 L 95 02/11/24 03:00 82/56 L 02/11/24 02:15 37.5 C 58 L 14 96 02/11/24 02:15 60 14 95 30 02/11/24 01:55 61 14 89/55 L 02/11/24 01:19 86/57 L 02/11/24 00:00 70 02/11/24 00:00 108/73 02/11/24 00:00 30 02/10/24 23:00 96/71 L 02/10/24 22:50 75 14 95 30 02/10/24 22:48 37.8 C H 73 14 94 02/10/24 22:30 73 14 98/69 L 95 02/10/24 22:00 37.8 C H 80 14 106/81 94 02/10/24 21:03 37.7 C H 18 91 02/10/24 20:00 37.7 C H 68 15 90 02/10/24 20:00 110/67 02/10/24 20:00 Mechanical Vent 02/10/24 20:00 30 02/10/24 19:32 78 17 97 30 02/10/24 19:30 128/82 02/10/24 19:30 37.7 C H 95 H 16 100 Laboratory Results 02/11/24 04:10 02/11/24 04:10 Coding Level of Care Code 53633 CRITICAL CARE 1ST 30-74M Diagnoses Acute hypoxemic respiratory failure J96.01 GERD (gastroesophageal reflux disease) K21.9 ALS (amyotrophic lateral sclerosis) G12.21 Aspiration into respiratory tract T17.908A Pneumonia J18.9 History of pulmonary embolism Z86.711
[2024-02-11] MEDS: LANSOPRAZOLE 30 MG SOLTAB OG SCH (08:46)
[2024-02-11] MEDS: MAGNESIUM SULFATE / D5W 1 GM/100 ML BAG IV ONE (08:54)
--- NOTE | 2024-02-11 09:28 | XRay Report ---
XR chest 1V portable CLINICAL HISTORY: Resp failure TECHNIQUE: Single frontal radiograph of the chest was obtained. Comparison: Comparison is made to chest radiograph 02/10/2024 FINDINGS: Lines and tubes are stable. The cardiomediastinal silhouette is normal. Right lower lung airspace opa city is slightly improved from prior exam. No evidence of pleural effusion or pneumothorax. IMPRESSION: Right lower lung airspace opacity is somewhat improved from prior exam. ACT 112: Negative or not required by law. Electronically signed by: Keny Cantu M.D. 02/11/2024 9:26 AM
[2024-02-11] MEDS: HYDROCORTISONE SOD 100 MG in SYRINGE 0 ML IV STA (10:08)
--- NOTE | 2024-02-11 12:10 | Surgery Progress Note ---
Date of Service February 11, 2024 Assessment & Plan (1) Weakness generalized: (2) Acute hypoxemic respiratory failure: Plan 48y/o M with progressing ALS, currently has been ventilated on this hospital admission and is also on pressors for HD support. This has not been improving over this weekend. Surgical G-tube was requested after an unsuccessful attempt was made by GI. Last week. The patient is currently HD unstable requiring increased vasopressor support for maintaining BP and has periods of bradycardia. He is not a surgical candidate at this time for an elective procedure. 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 The risk of cardiac arrest on the operating table far outweighs that benefit here. I have discussed this with his over the phone today and she agrees, she is very reasonable. I also discussed this with the patient who also appeared to be in agreement. I think his HD status needs to be closely monitored to see if this will be improving, or whether he will not improve from this to reach an out of acute care setting. He currently is getting tube feeds via an NGT and maybe consider re-visiting an attempt at PICC for longer term TPN access for now if his condition does not continue to deteriorate. Please reconsult surgery if the patient remains admitted here with half-way nutrition needs and becomes HD stable. Admission and Anticipated Discharge Date Admission Date: February 06, 2024 Subjective Patient was seen this am. He continues to tolerate tube feeds via NGT. He remains on pressors with inability to wean down over the weekend and a slightly increased requirement. Remains on ventilator. Physical Exam Constitutional: + ill appearing; not in distress and not diaphoretic Tracheostomy, able to nod in response to questions Respiratory: On a ventilator Neurologic: Quadriplegic Results & Data Vital Signs (Past 12 Hours) Vital Signs Temp Pulse Resp BP Pulse Ox O2 Del Method FiO2 02/11/24 11:33 37.1 C 58 L 16 96 02/11/24 11:30 102/64 02/11/24 11:24 37.0 C 56 L 16 98 02/11/24 11:24 63 17 9 L 30 02/11/24 11:15 37.0 C 63 19 88 L 02/11/24 10:34 95/65 L 02/11/24 10:33 36.8 C 60 16 89 L 02/11/24 10:19 Mechanical Vent 02/11/24 10:00 36.9 C 82 23 78 L 02/11/24 10:00 137/80 02/11/24 09:42 37.0 C 73 23 88 L 02/11/24 09:33 116/82 02/11/24 09:09 37.0 C 53 L 16 89 L 02/11/24 09:03 37.0 C 58 L 16 90 02/11/24 09:00 123/72 02/11/24 08:57 37.0 C 65 19 87 L 02/11/24 08:39 37.0 C 58 L 17 87 L 02/11/24 08:30 30 02/11/24 08:12 37.0 C 87 16 100 02/11/24 08:00 96/59 L 02/11/24 08:00 30 02/11/24 08:00 55 L 16 97 30 02/11/24 07:57 37.0 C 56 L 28 H 98 02/11/24 07:30 58 L 02/11/24 07:30 37.0 C 71 14 97 02/11/24 07:18 37.1 C 62 16 97 02/11/24 07:00 111/66 02/11/24 06:00 85/57 L 02/11/24 06:00 37.3 C 63 14 97 02/11/24 05:00 37.5 C 72 14 100 02/11/24 04:00 37.4 C 62 14 96 02/11/24 04:00 30 02/11/24 03:09 37.3 C 56 L 14 97/63 L 95 02/11/24 03:00 82/56 L 02/11/24 02:15 37.5 C 58 L 14 96 02/11/24 02:15 60 14 95 30 02/11/24 01:55 61 14 89/55 L 02/11/24 01:19 86/57 L Results Complete Blood Count Results: RBC 3.76 M/uL (4.70-6.10) L 02/11/24 WBC 10.81 K/ul (4.8-10.8) H 02/11/24 Hgb 11.1 g/dl (14.0-18.0) L 02/11/24 Hct 33.4 % (42.0-52.0) L 02/11/24 Plt Count 311 K/uL (130-400) 02/11/24 PG Care Time/CCT Total # of Minutes Spent Total Time Spent with Patient: Total time spent is greater than 50% in coordination of care (as documented) at patient's floor/unit and/or counseling patient: [place] [address] SUB INP/OBS CARE 2/35MIN Patient Type Established Diagnoses Weakness generalized R53.1 Acute hypoxemic respiratory failure J96.01
--- NOTE | 2024-02-11 13:56 | Hospitalist Progress Note ---
Date of Service February 11, 2024 Assessment & Plan (1) Aspiration pneumonia: (2) Weakness generalized: Plan 48-year-old male with past medical history significant for ALS, orthostatic hypotension, irritable bowel syndrome, GERD, attention deficit disorder without hyperactivity, history of DVT and PE, depression with anxiety, wheelchair-bound at baseline presenting with shortness of breath for the last few days. Acute Hypoxic respiratory Failure Severe sepsis with septic shock POA RLL collapse Aspiration Pneumonia Pt presenting with SOB CTA chest on admission showed collapse of majority of right lower lobe with concern for pneumonia MRSA nares negative Patient was intubated, on mechanical ventilation in the ICU Underwent bronchoscopy, cultures pending Unable to be extubated in setting of progressive ALS (see below), s/p tracheostomy on 02/07 Continue on Zosyn; follow-up on cultures Was also in septic shock, continue hemodynamic support with vasopressors Goals of Care discussion- pt and desire full code status, tracheostomy, PEG Lower Extremity discoloration Asymptomatic Arterial Doppler with patent arteries on right, pt deferred on left extremity imaging. ALS quadriplegia in the setting of ALS and nonambulatory status On BiPAP while sleeping at home Goals of Care discussion as above -s/p tracheostomy on 02/07 -PEG tube to be placed by GI unsuccessful, surgery consulted for placement -per Surgery, not a surgical candidate at this time. Hx of DVT and PE on Eliquis, currently on hold for procedures History of attention deficit disorder without hyperactivity Depression with anxiety continue home meds GERD on omeprazole Neuropathy On gabapentin DVT prophylaxis: Eliquis currently on hold for procedure Diet: NG Tube feeds, plan for PEG placement Disposition: currently in ICU, plan for LTAC Admission and Anticipated Discharge Date Admission Date: February 06, 2024 Subjective laying in bed asleep trach and feeding tube in place Review of Systems Review of Systems: All systems reviewed & are unremarkable except as noted in Subjective Physical Exam Physical Exam: General: laying in bed, eyes closed, resting comfortably HEENT: trach in place CV: RRR Resp: Breath sounds clear on anterior chest Abd: soft Extremities: no edema lower extremities Results & Data Results & Data Vital Signs (Past 12 Hours) Vital Signs Temp Pulse Resp BP Pulse Ox O2 Del Method FiO2 02/11/24 12:00 30 02/11/24 11:33 37.1 C 58 L 16 96 02/11/24 11:30 102/64 02/11/24 11:24 37.0 C 56 L 16 98 02/11/24 11:24 63 17 9 L 30 02/11/24 11:15 37.0 C 63 19 88 L 02/11/24 10:34 95/65 L 02/11/24 10:33 36.8 C 60 16 89 L 02/11/24 10:19 Mechanical Vent 02/11/24 10:00 36.9 C 82 23 78 L 02/11/24 10:00 137/80 02/11/24 09:42 37.0 C 73 23 88 L 02/11/24 09:33 116/82 02/11/24 09:09 37.0 C 53 L 16 89 L 02/11/24 09:03 37.0 C 58 L 16 90 02/11/24 09:00 123/72 02/11/24 08:57 37.0 C 65 19 87 L 02/11/24 08:39 37.0 C 58 L 17 87 L 02/11/24 08:30 30 02/11/24 08:12 37.0 C 87 16 100 02/11/24 08:00 96/59 L 02/11/24 08:00 30 02/11/24 08:00 55 L 16 97 30 02/11/24 07:57 37.0 C 56 L 28 H 98 02/11/24 07:30 58 L 02/11/24 07:30 37.0 C 71 14 97 02/11/24 07:18 37.1 C 62 16 97 02/11/24 07:00 111/66 02/11/24 06:00 85/57 L 02/11/24 06:00 37.3 C 63 14 97 02/11/24 05:00 37.5 C 72 14 100 02/11/24 04:00 37.4 C 62 14 96 02/11/24 04:00 30 02/11/24 03:09 37.3 C 56 L 14 97/63 L 95 02/11/24 03:00 82/56 L 02/11/24 02:15 37.5 C 58 L 14 96 02/11/24 02:15 60 14 95 30
[2024-02-11] MEDS: LORazepam 0.5 MG in SYRINGE 0.25 ML IV PRN (15:30)
[2024-02-11] MEDS: HYDROCORTISONE SOD 50 MG in SYRINGE 0 ML IV SCH (17:46)
[2024-02-12 04:44] LABS: Basophils # (auto) 0.01 K/uL (0.00-0.20); Basophils % (auto) 0.1 %; Hematocrit (blood only) 30.7 % (42.0-52.0); Hemoglobin 10.3 g/dl (14.0-18.0); Immature Granulocytes # (auto) 0.02 K/uL (0.01-0.20); Immature Granulocytes % (auto) 0.3 %; Lymphocytes # (auto) 0.45 K/uL (1.20-3.40); Lymphocytes % (auto) 6.3 %; Mean Corpuscular Hemoglobin 29.4 pg (25.0-34.0); Mean Corpuscular Hgb Conc 33.6 g/dL (32.0-36.0); Mean Corpuscular Volume 87.7 fL (80.0-100.0); Mean Platelet Volume 10.6 fL (9.4-12.4); Monocytes # (auto) 0.32 K/uL (0.11-0.59); Monocytes % (auto) 4.5 %; Neutrophils # (auto) 6.38 K/uL (1.40-6.50); Neutrophils % (auto) 88.8 %; Platelet Count 343 K/uL (130-400); RDW Coefficient of Variation 13.1 % (11.5-14.5); RDW Standard Deviation 41.1 fL (36.4-46.3); White Blood Count 7.18 K/ul (4.8-10.8)
[2024-02-12 05:07] LABS: Anion Gap 4 (3-11); Blood Urea Nitrogen 3 mg/dl (6-23); Carbon Dioxide 32 mmol/L (21-32); Chloride 102 mmol/L (98-107); Creatinine Clr Calc Pharmacy 428.7 ml/min; Est GFR (African American) > 150.0 ml/min; Est GFR (Non-African American) > 150.0 ml/min; Glucose 180 mg/dl (70-99(Fasting)); Magnesium 1.9 mg/dl (1.7-2.4); Phosphorus 2.4 mg/dl (2.5-4.9); Potassium 3.2 mmol/L (3.5-5.1); Sodium 138 mmol/L (136-145)
[2024-02-12 05:34] LABS: iSTAT Allen Test Pass; iSTAT Art Bld Gas pCO2 Correct 43 mmHg (35-46); iSTAT Art Bld Gas pH Corrected 7.472 (7.35-7.45); iSTAT Arterial Blood Gas HCO3 31 meg/L (19-24); iSTAT Arterial Blood Gas pCO2 44 mmHg (35-46); iSTAT Arterial Blood Gas pH 7.47 (7.35-7.45); iSTAT Arterial Blood Gas pO2 51 mmHg (80-95); iSTAT Arterial Blood Gas pO2 C 50; iSTAT Carbon Dioxide 33 mmol/L (24-31); iSTAT FiO2 30 %; iSTAT Hematocrit 33 % (42-52); iSTAT Hemoglobin 11.2 g/dl (14.0-18.0); iSTAT Potassium 3.1 mmol/L (3.3-5.0); iSTAT Site L Radial; iSTAT Sodium 138 mmol/L (135-144)
--- NOTE | 2024-02-12 08:08 | XRay Report ---
XR chest 1V portable HISTORY: Resp failure COMPARISON: Chest 02/11/2024. FINDINGS: No pneumothorax. The heart is normal in size. Tracheostomy tube and nasogastric tube appear good position. Patchy bibasilar densities persist most pronounced on the right. This favors a pneumo renato and could be due to aspiration. No evidence for pulmonary edema. No acute fractures. IMPRESSION: 1. Bibasilar airspace opacities persist and are consistent with a pneumonia. This could be due to asp iration. 2. Satisfactory support line placement. ACT 112: Negative or not required by law. Electronically signed by: Eric Renee M.D. 02/12/2024 8:06 AM
--- NOTE | 2024-02-12 09:22 | Critical Care Progress Note ---
Date of Service February 12, 2024 Assessment & Plan (1) Acute hypoxemic respiratory failure: (2) GERD (gastroesophageal reflux disease): (3) ALS (amyotrophic lateral sclerosis): (4) Aspiration into respiratory tract: (5) Pneumonia: (6) History of pulmonary embolism: Plan Assessment: Pt is a 48 yo male with a hx of ALS who is wheelchair bound with quadriplegia, IBS, GERD, ADD, anxiety and depression, and hx DVT and PE who presents to the hospital on 02/04 for several days of worsening SOB and respiratory distress admitted to the ICU for ongoing respiratory distress and aspiration requiring intubation and mechanical ventilation. 24 hour events: No major events. Maintain vasopressors to maintain maps above 65 mmHg. Neurologic -ALS. - Patient status post tracheostomy 02/08/2024 Anxiety: -Patient requesting Ativan, stating he is has several acute mental health issues that are going on. Denies long-term use of Ativan. -Ativan half a milligram every 8 hours previously ordered -Lexapro 20 mg every morning -Given possible extended stay may benefit from medication optimization/mental health evaluation -Family attempting to set up communication device Pain: -Transition from Dilaudid to oxycodone hopefully after PEG placement Cardiac --Shock: Resolved off vasoactive's as of 02/11 at 11 AM -Consider de-escalation of hydrocortisone after tomorrow/PEG placement last echo in our system is 2019 with EF 50-55% with right ventricular and IVC dilation. US negative for DVT and CTA neg for PE. Takes eliquis BID for hx PE/DVT diagnosed February 2020, on lovenox now for prophylaxis. Continue with vasopressors to keep MAP greater than 65 Respiratory -- Acute respiratory failure with hypoxia: Improving Has hx of ALS. On admission, CXR showed RLL opacity and chest Treating right lower lobe pneumonia. Status post bronchoscopy x 2 with clearance of mucous. Bronc culture negative for any bacteria. Is growing Rosalba which is most likely contaminant Gastrointestinal GI unable to place PEG tube. General surgery consulted and will reattempt PEG tube placement on Monday. Renal/electrolytes No major issues. Replace electrolytes as needed. Genitourinary No concerns at this time, walters catheter for strict I/O's Endocrine Continue with ICU hyperglycemia protocol Hematologic -- Normocytic anemia Monitor H&H History of VTE and lower extremity in February 2020. -Patient became wheelchair-bound in August 2020, family reports he is essentially paraplegic since that time. Anticoagulation on hold for possible PEG tube placement tomorrow -Would recommend risk stratification for ongoing anticoagulation needs in the setting of chronic immobility Infectious disease CTA on admission shows large right lower lobe opacity, seems most consistent with aspiration +/- pneumonia component. Cultures negative thus far. Antibiotics de-escalated to Unasyn on 02/10/2024 day 6 of 7 --Prophylaxis VTE: Lovenox: On hold GI: Lansoprazole Lines: Peripheral Diet: Tube feeds Disposition: Discussed with social work, has prior authorization for LTAC placement however family does not desire this particular LTAC. I have personally spent 45 minutes of critical care time in the direct management of this patient. This is a life/limb threatening event. This includes time spent evaluating patient, direct bedside care, chart review, placing orders, interpretation of diagnostic studies, discussion with consultants, patient, and family members, as well as other required patient management activities. This time is exclusive of all separately billable procedures, and teaching time and separate from and in addition to any other critical care service time. Admission and Anticipated Discharge Date Admission Date: February 06, 2024 Subjective Is able to speak around trach. Reports pain at trach site and anxiety. Denies any significant belly pain. Physical Exam Physical Exam: General: Alert, grimaces Skin: Warm, dry, Head: Atraumatic Ears, nose, mouth and throat: airway obscured by endotracheal tube Cardiovascular: Normal peripheral perfusion Respiratory: Ventilator settings reviewed Gastrointestinal: Non distended Musculoskeletal: Atrophy consistent with ALS Results & Data Results & Data Vital Signs (Past 12 Hours) Vital Signs Temp Pulse Resp BP Pulse Ox FiO2 02/12/24 08:00 63 16 96 40 02/12/24 06:00 36.8 C 54 L 16 101/64 92 02/12/24 05:35 40 02/12/24 05:30 117/75 02/12/24 05:27 36.8 C 49 L 16 92 02/12/24 05:12 36.8 C 52 L 14 90 02/12/24 04:00 36.7 C 57 L 17 93 02/12/24 04:00 106/64 02/12/24 04:00 30 02/12/24 03:03 36.8 C 59 L 18 89 L 02/12/24 02:39 79 18 90 30 02/12/24 02:15 36.9 C 61 18 89 L 02/12/24 01:06 37.0 C 68 18 94 02/12/24 00:35 100/58 L 02/12/24 00:03 37.1 C 61 19 117/68 89 L 02/12/24 00:00 30 02/11/24 23:00 37.1 C 84 17 95 02/11/24 23:00 116/75 02/11/24 22:43 61 02/11/24 22:38 65 14 96 30 02/11/24 22:03 37.1 C 58 L 14 96 Critical Care Results & Data Vital Signs (Past 12 Hours) Vital Signs Temp Pulse Resp BP Pulse Ox FiO2 02/12/24 08:00 63 16 96 40 02/12/24 06:00 36.8 C 54 L 16 101/64 92 02/12/24 05:35 40 02/12/24 05:30 117/75 02/12/24 05:27 36.8 C 49 L 16 92 02/12/24 05:12 36.8 C 52 L 14 90 02/12/24 04:00 36.7 C 57 L 17 93 02/12/24 04:00 106/64 02/12/24 04:00 30 02/12/24 03:03 36.8 C 59 L 18 89 L 02/12/24 02:39 79 18 90 30 02/12/24 02:15 36.9 C 61 18 89 L 02/12/24 01:06 37.0 C 68 18 94 02/12/24 00:35 100/58 L 02/12/24 00:03 37.1 C 61 19 117/68 89 L 02/12/24 00:00 30 02/11/24 23:00 37.1 C 84 17 95 02/11/24 23:00 116/75 02/11/24 22:43 61 02/11/24 22:38 65 14 96 30 02/11/24 22:03 37.1 C 58 L 14 96 Lab & Micro Results (Past 24 Hours) RBC 3.50 M/uL (4.70-6.10) L 02/12/24 WBC 7.18 K/ul (4.8-10.8) 02/12/24 Hgb 10.3 g/dl (14.0-18.0) L 02/12/24 Hct 30.7 % (42.0-52.0) L 02/12/24 MCV 87.7 fL (80.0-100.0) 02/12/24 MCH 29.4 pg (25.0-34.0) 02/12/24 MCHC 33.6 g/dL (32.0-36.0) 02/12/24 RDW Standard Deviation 41.1 fL (36.4-46.3) 02/12/24 RDW Coefficient of Variation 13.1 % (11.5-14.5) 02/12/24 Plt Count 343 K/uL (130-400) 02/12/24 MPV 10.6 fL (9.4-12.4) 02/12/24 Neutrophils (%) (Auto) 88.8 % 02/12/24 Lymphocytes (%) (Auto) 6.3 % 02/12/24 Monocytes # (Auto) 0.32 K/uL (0.11-0.59) 02/12/24 Eosinophils # (Auto) 0.00 K/uL (0.00-0.50) 02/12/24 Immature Granulocyte % (Auto) 0.3 % 02/12/24 Neutrophils # (Auto) 6.38 K/uL (1.40-6.50) 02/12/24 Lymphocytes # (Auto) 0.45 K/uL (1.20-3.40) L 02/12/24 Monocytes # (Auto) 0.32 K/uL (0.11-0.59) 02/12/24 Eosinophils # (Auto) 0.00 K/uL (0.00-0.50) 02/12/24 Basophils # (Auto) 0.01 K/uL (0.00-0.20) 02/12/24 Immature Granulocyte # (Auto) 0.02 K/uL (0.01-0.20) 4 Na 138 mmol/L (136-145) 02/12/24 K 3.2 mmol/L (3.5-5.1) L 02/12/24 Cl 102 mmol/L (98-107) 02/12/24 CO2 32 mmol/L (21-32) 02/12/24 Anion Gap 4 (3-11) 02/12/24 BUN 3 mg/dl (6-23) L 02/12/24 Creatinine < 0.20 mg/dl (0.6-1.4) L 02/12/24 Estimated GFR ( Amer) > 150.0 ml/min 02/12/24 Estimated GFR (Non-Af Amer) > 150.0 ml/min 02/12/24 BUN/Creatinine Ratio TNP 02/12/24 Glu 180 mg/dl (70-99(Fasting)) H 02/12/24 Ca 8.0 mg/dl (8.6-10.3) L 02/12/24 Phosphorus Level 2.4 mg/dl (2.5-4.9) L 02/12/24 Mg 1.9 mg/dl (1.7-2.4) 02/12/24 04:24 Calcium Level 8.0 mg/dl (8.6-10.3) L 02/12/24 04:24 Ming Test Pass 02/12/24 05:20 Microbiology 02/05/24 21:17 Aerobic Blood Culture - Final Blood No growth in Aerobic bottle after 5 days. Anaerobic Blood Culture - Final No growth in Anaerobic bottle after 5 days. 02/05/24 20:33 Aerobic Blood Culture - Final Blood No growth in Aerobic bottle after 5 days. Anaerobic Blood Culture - Final No growth in Anaerobic bottle after 5 days. Diagnostic Findings (Past 24 Hours) Chest X-Ray 02/11/24 07:00 XR chest 1V portable CLINICAL HISTORY: Resp failure TECHNIQUE: Single frontal radiograph of the chest was obtained. Comparison: Comparison is made to chest radiograph 02/10/2024 FINDINGS: Lines and tubes are stable. The cardiomediastinal silhouette is normal. Right lower lung airspace opacity is slightly improved from prior exam. No evidence of pleural effusion or pneumothorax. IMPRESSION: Right lower lung airspace opacity is somewhat improved from prior exam. ACT 112: Negative or not required by law. Electronically signed by: Keny Cantu M.D. 02/11/2024 9:26 AM Chest X-Ray 02/12/24 07:00 XR chest 1V portable HISTORY: Resp failure COMPARISON: Chest 02/11/2024. FINDINGS: No pneumothorax. The heart is normal in size. Tracheostomy tube and nasogastric tube appear good position. Patchy bibasilar densities persist most pronounced on the right. This favors a pneumonia and could be due to aspiration. No evidence for pulmonary edema. No acute fractures. IMPRESSION: 1. Bibasilar airspace opacities persist and are consistent with a pneumonia. This could be due to aspiration. 2. Satisfactory support line placement. ACT 112: Negative or not required by law. Electronically signed by: Eric Renee M.D. 02/12/2024 8:06 AM I & O Totals 24 Hours 02/11/24 02/12/24 02/13/24 06:59 06:59 06:59 Intake Total 2595.960 / 2595.960 2170.339 / 2170.339 164.133 / 164.133 Output Total 3325 / 3325 2400 / 2400 Balance -729.040 / -729.040 -229.661 / -229.661 164.133 / 164.133 Cumulative 02/05/24 20:21 thru 02/12/24 08:47 Intake Total 03074.822 Output Total 53927 Balance 6876.822 RT Ventilator Mngmt (Last Documented) Ventilator Ordered Settings Ventilator Support Mode Assist Control 02/12/24 08:00 Respiratory Rate 16 02/12/24 08:00 Ventilator Tidal Volume 370 02/12/24 08:00 Setting Minute Ventilation 5.9 02/12/24 08:00 Ventilator Positive Pressure 5 02/08/24 12:00 Support Setting Positive End Expiratory 7 02/12/24 08:00 Pressure Fraction of Inspired Oxygen 40 02/12/24 08:00 Peak Inspiratory Flow 50 02/06/24 23:41 Machine Comment PEEP and FiO2 changes made per 02/12/24 05:35 ABG results. Stefan Slaazarron [employer] CCM aware Ventilator - PT Measurements Respiratory Rate 16 Exhaled Tidal Volume 370 Minute Ventilation 5.9 Peak Inspiratory Airway 18 Pressure Plateau Pressure 16 Respiratory Cycle Inspiratory: 1:3.3 Expiratory Ratio Inspiratory Phase Time 0.80 End-Tidal CO2 39 Static Lung Compliance 41.11 Dynamic Lung Compliance 33.64 Normal Static Lung Compliance 48.00 Patient Measurements Comment trach care completed oral suctioned Coding Level of Care Code 27342 CRITICAL CARE 1ST 30-74M Diagnoses Acute hypoxemic respiratory failure J96.01 GERD (gastroesophageal reflux disease) K21.9 ALS (amyotrophic lateral sclerosis) G12.21 Aspiration into respiratory tract T17.908A Pneumonia J18.9 History of pulmonary embolism Z86.711
[2024-02-12] MEDS: ENOXAPARIN INJ 60 MG/0.6 ML SYR SQ ONE (11:29)
--- NOTE | 2024-02-12 13:49 | Surgery Progress Note ---
Date of Service February 12, 2024 Assessment & Plan (1) Weakness generalized: Plan Surgery may be able to be considered tomorrow if the patient remains HD stable. The surgical team is following up with ICU team on the stability of the patient's condition. Dr. Pitts is taking over for surgical team this week and planning for possible percutaneous G-tube placement, possible open gastrostomy tube insertion pending patient's status in the a.m. Please continue to hold anticoagulation. Do not resume Lovenox in the a.m. Hold tube feeds after midnight. Surgery will follow-up with you. Admission and Anticipated Discharge Date Admission Date: February 06, 2024 Subjective I have seen the patient this am. Hemodynamics seem to be improving. Levophed is off currently and blood pressures are holding. Bradycardia for now and seems to be resolving. Physical Exam Constitutional: Tracheostomy Ill appearing Cachectic Respiratory: On ventilator Results & Data Vital Signs (Past 12 Hours) Vital Signs Temp Pulse Resp BP Pulse Ox O2 Del Method FiO2 02/12/24 12:00 40 02/12/24 11:15 67 18 90 40 02/12/24 11:00 90/56 L 02/12/24 11:00 36.6 C 75 18 93 02/12/24 10:03 36.6 C 69 17 96 02/12/24 09:30 36.5 C 65 15 95 02/12/24 09:30 125/74 02/12/24 09:03 36.6 C 58 L 17 95 02/12/24 08:30 81 14 100 02/12/24 08:30 135/85 02/12/24 08:00 Mechanical Vent 40 02/12/24 08:00 40 02/12/24 08:00 36.5 C 115 H 15 100 02/12/24 08:00 63 16 96 40 02/12/24 07:03 36.7 C 74 19 95 02/12/24 06:30 101/64 02/12/24 06:30 36.8 C 56 L 15 94 02/12/24 06:00 36.8 C 54 L 16 101/64 92 02/12/24 05:35 40 02/12/24 05:30 117/75 02/12/24 05:27 36.8 C 49 L 16 92 02/12/24 05:12 36.8 C 52 L 14 90 02/12/24 04:00 36.7 C 57 L 17 93 02/12/24 04:00 106/64 02/12/24 04:00 30 02/12/24 03:03 36.8 C 59 L 18 89 L 02/12/24 02:39 79 18 90 30 02/12/24 02:15 36.9 C 61 18 89 L PG Care Time/CCT Total # of Minutes Spent Total Time Spent with Patient: Total time spent is greater than 50% in coordination of care (as documented) at patient's floor/unit and/or counseling patient: Coding Level of Care Code 63059 SUB INP/OBS CARE 10/05MIN Diagnoses Weakness generalized R53.1
[2024-02-12] MEDS: LORazepam 0.5 MG in SYRINGE 0.25 ML IV STA (15:05)
--- NOTE | 2024-02-12 15:40 | History & Physical Bridge Note ---
Date of Service February 12, 2024 History & Physical Bridge Note I have examined the patient, reviewed the History & Physical and in the interval since the performance of the History & Physical I have noted the following changes of clinical significance: no changes noted I spoke with pt's as well as Dr. Cano. discussed egd/ped poss open with . discussed risks ( bleeding/infection/injury to other organs/leakage/dvt/pe/mi/cva etc... questions answered. provided no change in status will plan EGD/PEG poss open procedure tomorrow.
--- NOTE | 2024-02-12 16:11 | Hospitalist Progress Note ---
Date of Service February 12, 2024 Assessment & Plan (1) Aspiration pneumonia: (2) Weakness generalized: Plan 48-year-old male with past medical history significant for ALS, orthostatic hypotension, irritable bowel syndrome, GERD, attention deficit disorder without hyperactivity, history of DVT and PE, depression with anxiety, wheelchair-bound at baseline presenting with shortness of breath for the last few days. Acute Hypoxic respiratory Failure Severe sepsis with septic shock POA RLL collapse Aspiration Pneumonia Pt presenting with SOB CTA chest on admission showed collapse of majority of right lower lobe with concern for pneumonia MRSA nares negative Patient was intubated, on mechanical ventilation in the ICU Underwent bronchoscopy, cultures pending Unable to be extubated in setting of progressive ALS (see below), s/p tracheostomy on 02/07 Continue on Zosyn; follow-up on cultures Also in septic shock, continuing hemodynamic support with vasopressors, being weaned Goals of Care discussion- pt and desire full code status, tracheostomy, PEG Lower Extremity discoloration Asymptomatic Arterial Doppler with patent arteries on right, pt deferred on left extremity imaging. ALS quadriplegia in the setting of ALS and nonambulatory status On BiPAP while sleeping at home Goals of Care discussion as above -s/p tracheostomy on 02/07 -PEG tube to be placed by GI unsuccessful, surgery consulted for placement -per Surgery, not a surgical candidate at this time. Hx of DVT and PE on Eliquis, currently on hold for procedures History of attention deficit disorder without hyperactivity Depression with anxiety continue home meds GERD on omeprazole Neuropathy On gabapentin DVT prophylaxis: Eliquis currently on hold for procedure Diet: NG Tube feeds, plan for PEG placement Disposition: currently in ICU, plan for LTAC Admission and Anticipated Discharge Date Admission Date: February 06, 2024 Subjective Pt was seen with at bedside. notes pain. Per nursing had received meds about half hour prior Review of Systems Review of Systems: All systems reviewed & are unremarkable except as noted in Subjective Physical Exam Physical Exam: General: laying in bed, eyes closed, resting comfortably HEENT: trach in place CV: RRR Resp: Breath sounds clear on anterior chest Abd: soft Extremities: no edema lower extremities Results & Data Results & Data Vital Signs (Past 12 Hours) Vital Signs Temp Pulse Resp BP Pulse Ox O2 Del Method FiO2 02/12/24 14:14 132/86 02/12/24 14:09 36.8 C 95 H 17 96 02/12/24 14:06 36.8 C 77 17 95 02/12/24 13:00 105/62 02/12/24 13:00 36.8 C 65 15 93 02/12/24 12:09 36.7 C 66 17 91 02/12/24 12:00 40 02/12/24 11:15 67 18 90 40 02/12/24 11:00 90/56 L 02/12/24 11:00 36.6 C 75 18 93 02/12/24 10:03 36.6 C 69 17 96 02/12/24 09:30 36.5 C 65 15 95 02/12/24 09:30 125/74 02/12/24 09:03 36.6 C 58 L 17 95 02/12/24 08:30 81 14 100 02/12/24 08:30 135/85 02/12/24 08:00 Mechanical Vent 40 02/12/24 08:00 40 02/12/24 08:00 36.5 C 115 H 15 100 02/12/24 08:00 63 16 96 40 02/12/24 07:03 36.7 C 74 19 95 02/12/24 06:30 101/64 02/12/24 06:30 36.8 C 56 L 15 94 02/12/24 06:00 36.8 C 54 L 16 101/64 92 02/12/24 05:35 40 02/12/24 05:30 117/75 02/12/24 05:27 36.8 C 49 L 16 92 02/12/24 05:12 36.8 C 52 L 14 90
[2024-02-13 04:01] LABS: iSTAT Allen Test Pass; iSTAT Art Bld Gas pCO2 Correct 45 mmHg (35-46); iSTAT Art Bld Gas pH Corrected 7.483 (7.35-7.45); iSTAT Arterial Blood Gas HCO3 34 meg/L (19-24); iSTAT Arterial Blood Gas pCO2 45 mmHg (35-46); iSTAT Arterial Blood Gas pH 7.48 (7.35-7.45); iSTAT Arterial Blood Gas pO2 57 mmHg (80-95); iSTAT Arterial Blood Gas pO2 C 56; iSTAT Carbon Dioxide 35 mmol/L (24-31); iSTAT FiO2 40 %; iSTAT Hematocrit 31 % (42-52); iSTAT Hemoglobin 10.5 g/dl (14.0-18.0); iSTAT Site R Radial; iSTAT Sodium 140 mmol/L (135-144)
[2024-02-13 04:49] LABS: Hematocrit (blood only) 33.2 % (42.0-52.0); Hemoglobin 10.8 g/dl (14.0-18.0); Immature Granulocytes # (auto) 0.02 K/uL (0.01-0.20); Immature Granulocytes % (auto) 0.4 %; Lymphocytes # (auto) 0.58 K/uL (1.20-3.40); Lymphocytes % (auto) 11.3 %; Mean Corpuscular Hgb Conc 32.5 g/dL (32.0-36.0); Mean Platelet Volume 10.7 fL (9.4-12.4); Monocytes # (auto) 0.36 K/uL (0.11-0.59); Neutrophils # (auto) 4.17 K/uL (1.40-6.50); Neutrophils % (auto) 81.3 %; Platelet Count 334 K/uL (130-400); RDW Coefficient of Variation 13.2 % (11.5-14.5); RDW Standard Deviation 43.3 fL (36.4-46.3); Red Blood Count 3.73 M/uL (4.70-6.10); White Blood Count 5.13 K/ul (4.8-10.8)
[2024-02-13 04:51] LABS: Anion Gap 4 (3-11); Blood Urea Nitrogen 6 mg/dl (6-23); Calcium 8.6 mg/dl (8.6-10.3); Carbon Dioxide 34 mmol/L (21-32); Chloride 102 mmol/L (98-107); Creatinine Clr Calc Pharmacy 437.7 ml/min; Est GFR (African American) > 150.0 ml/min; Est GFR (Non-African American) > 150.0 ml/min; Glucose 113 mg/dl (70-99(Fasting)); Phosphorus 2.4 mg/dl (2.5-4.9); Potassium 3.4 mmol/L (3.5-5.1); Sodium 140 mmol/L (136-145)
[2024-02-13] MEDS ORDERED: POTASSIUM PHOS 3 MMOL/1 ML INFUSION IV STA (06:13)
[2024-02-13] MEDS: POTASSIUM PHOSPHATE 21 MMOL in SODIUM CHLORIDE 0.9% 500 ML IV ONE (06:31)
--- NOTE | 2024-02-13 08:59 | Critical Care Progress Note ---
Date of Service February 13, 2024 Assessment & Plan (1) Acute hypoxemic respiratory failure: (2) GERD (gastroesophageal reflux disease): (3) ALS (amyotrophic lateral sclerosis): (4) Aspiration into respiratory tract: (5) Pneumonia: (6) History of pulmonary embolism: Plan Assessment: Pt is a 48 yo male with a hx of ALS who is wheelchair bound with quadriplegia, IBS, GERD, ADD, anxiety and depression, and hx DVT and PE who presents to the hospital on 02/04 for several days of worsening SOB and respiratory distress admitted to the ICU for ongoing respiratory distress and aspiration requiring intubation and mechanical ventilation. 24 hour events: No major events. Neurologic -ALS. -Postop day 5 patient status post tracheostomy 02/08/2024 Anxiety: -Ativan -Lexapro 20 mg every morning: This is max dose -Given possible extended stay may benefit from medication optimization/mental health evaluation -Will consult tomorrow if patient does not discharge to LTAC during approved time window per insurance -Communication device set up in room Pain: -Transition from Dilaudid to oxycodone hopefully after PEG placement Cardiac --Shock: Resolved off vasoactive's greater than 24 hours -Consider de-escalation of hydrocortisone after tomorrow/PEG placement last echo in our system is 2019 with EF 50-55% with right ventricular and IVC dilation. US negative for DVT and CTA neg for PE. Takes eliquis BID for hx PE/DVT diagnosed February 2020 Continue with vasopressors to keep MAP greater than 65 Respiratory -- Acute respiratory failure with hypoxia: Improving Has hx of ALS. On admission, CXR showed RLL opacity and chest Treating right lower lobe pneumonia. Status post bronchoscopy x 2 with clearance of mucous. [facility] culture negative for any bacteria. Is growing Rosalba which is most likely contaminant Gastrointestinal GI unable to place PEG tube. General surgery consulted will attempt PEG tube placement today. Renal/electrolytes No major issues. Replace electrolytes as needed. Genitourinary No concerns at this time, walters catheter for strict I/O's Endocrine Continue with ICU hyperglycemia protocol Hematologic -- Normocytic anemia Monitor H&H History of VTE and lower extremity in February 2020. -Patient became wheelchair-bound in August 2020, family reports he is essentially paraplegic since that time. Anticoagulation on hold for possible PEG tube placement tomorrow -Would recommend risk stratification for ongoing anticoagulation needs in the setting of chronic immobility Infectious disease CTA on admission shows large right lower lobe opacity, seems most consistent with aspiration +/- pneumonia component. Cultures negative thus far. Antibiotics de-escalated to Unasyn on 02/10/2024 day 7 of 7 --Prophylaxis VTE: Lovenox: On hold GI: Lansoprazole Lines: Peripheral Diet: Tube feeds on hold for PEG placement Disposition: Discussed with social work, has prior authorization for LTAC placement however family does not desire this particular LTAC. I have personally spent 40 minutes of critical care time in the direct management of this patient. This is a life/limb threatening event. This includes time spent evaluating patient, direct bedside care, chart review, placing orders, interpretation of diagnostic studies, discussion with consultants, patient, and family members, as well as other required patient management activities. This time is exclusive of all separately billable procedures, and teaching time and separate from and in addition to any other critical care service time. Admission and Anticipated Discharge Date Admission Date: February 06, 2024 Subjective Being recovered status post PEG tube placement Physical Exam Physical Exam: General: Alert, being suctioned orally by at bedside Skin: Warm, dry, Head: Atraumatic Ears, nose, mouth and throat: airway obscured by endotracheal tube Cardiovascular: Normal peripheral perfusion Respiratory: Ventilator settings reviewed Gastrointestinal: Non distended Musculoskeletal: Atrophy consistent with ALS Results & Data Results & Data Vital Signs (Past 12 Hours) Vital Signs Temp Pulse Resp BP Pulse Ox O2 Del Method FiO2 02/13/24 07:10 78 15 96 40 02/13/24 06:00 36.4 C L 68 14 115/69 92 Mechanical Vent 02/13/24 05:00 37.2 C 69 14 133/78 90 Mechanical Vent 40 02/13/24 04:01 36.8 C 81 14 137/76 93 Mechanical Vent 40 02/13/24 03:56 40 02/13/24 03:23 19 40 02/13/24 02:30 36.8 C 110 H 16 127/75 92 Mechanical Vent 02/13/24 00:28 135/84 02/13/24 00:27 36.7 C 90 17 96 02/13/24 00:03 36.8 C 64 15 133/75 93 02/13/24 00:00 70 02/13/24 00:00 40 02/12/24 23:03 36.8 C 71 16 95 02/12/24 22:34 95 H 17 70 L 02/12/24 22:03 36.7 C 80 20 99/61 L 94 Critical Care Results & Data Vital Signs (Past 12 Hours) Vital Signs Temp Pulse Resp BP Pulse Ox O2 Del Method FiO2 02/13/24 07:10 78 15 96 40 02/13/24 06:00 36.4 C L 68 14 115/69 92 Mechanical Vent 02/13/24 05:00 37.2 C 69 14 133/78 90 Mechanical Vent 40 02/13/24 04:01 36.8 C 81 14 137/76 93 Mechanical Vent 40 02/13/24 03:56 40 02/13/24 03:23 19 40 02/13/24 02:30 36.8 C 110 H 16 127/75 92 Mechanical Vent 02/13/24 00:28 135/84 02/13/24 00:27 36.7 C 90 17 96 02/13/24 00:03 36.8 C 64 15 133/75 93 02/13/24 00:00 70 02/13/24 00:00 40 02/12/24 23:03 36.8 C 71 16 95 02/12/24 22:34 95 H 17 70 L 02/12/24 22:03 36.7 C 80 20 99/61 L 94 Lab & Micro Results (Past 24 Hours) RBC 3.73 M/uL (4.70-6.10) L 02/13/24 WBC 5.13 K/ul (4.8-10.8) 02/13/24 Hgb 10.8 g/dl (14.0-18.0) L 02/13/24 Hct 33.2 % (42.0-52.0) L 02/13/24 MCV 89.0 fL (80.0-100.0) 02/13/24 MCH 29.0 pg (25.0-34.0) 02/13/24 MCHC 32.5 g/dL (32.0-36.0) 02/13/24 RDW Standard Deviation 43.3 fL (36.4-46.3) 02/13/24 RDW Coefficient of Variation 13.2 % (11.5-14.5) 02/13/24 Plt Count 334 K/uL (130-400) 02/13/24 MPV 10.7 fL (9.4-12.4) 02/13/24 Neutrophils (%) (Auto) 81.3 % 02/13/24 Lymphocytes (%) (Auto) 11.3 % 02/13/24 Monocytes # (Auto) 0.36 K/uL (0.11-0.59) 02/13/24 Eosinophils # (Auto) 0.00 K/uL (0.00-0.50) 02/13/24 Immature Granulocyte % (Auto) 0.4 % 02/13/24 Neutrophils # (Auto) 4.17 K/uL (1.40-6.50) 02/13/24 Lymphocytes # (Auto) 0.58 K/uL (1.20-3.40) L 02/13/24 Monocytes # (Auto) 0.36 K/uL (0.11-0.59) 02/13/24 Eosinophils # (Auto) 0.00 K/uL (0.00-0.50) 02/13/24 Basophils # (Auto) 0.00 K/uL (0.00-0.20) 02/13/24 Immature Granulocyte # (Auto) 0.02 K/uL (0.01-0.20) 4 Na 140 mmol/L (136-145) 02/13/24 K 3.4 mmol/L (3.5-5.1) L 02/13/24 Cl 102 mmol/L (98-107) 02/13/24 CO2 34 mmol/L (21-32) H 02/13/24 Anion Gap 4 (3-11) 02/13/24 BUN 6 mg/dl (6-23) 02/13/24 Creatinine < 0.20 mg/dl (0.6-1.4) L 02/13/24 Estimated GFR ( Amer) > 150.0 ml/min 02/13/24 Estimated GFR (Non-Af Amer) > 150.0 ml/min 02/13/24 BUN/Creatinine Ratio TNP 02/13/24 Glu 113 mg/dl (70-99(Fasting)) H 02/13/24 Ca 8.6 mg/dl (8.6-10.3) 02/13/24 Phosphorus Level 2.4 mg/dl (2.5-4.9) L 02/13/24 Mg 2.0 mg/dl (1.7-2.4) 02/13/24 04:22 Calcium Level 8.6 mg/dl (8.6-10.3) 02/13/24 04:22 Ming Test Pass 02/13/24 03:46 I & O Totals 24 Hours 02/12/24 02/13/24 02/14/24 06:59 06:59 06:59 Intake Total 2170.339 / 2170.339 2253.000 / 2253.000 Output Total 2400 / 2400 1671 / 1671 Balance -229.661 / -229.661 582.000 / 582.000 Cumulative 02/05/24 20:21 thru 02/13/24 06:30 Intake Total 45966.689 Output Total 26109 Balance 7294.689 RT Ventilator Mngmt (Last Documented) Ventilator Ordered Settings Ventilator Support Mode Assist Control 02/13/24 07:10 Respiratory Rate 15 02/13/24 07:10 Ventilator Tidal Volume 370 02/13/24 07:10 Setting Minute Ventilation 5.5 02/13/24 07:10 Ventilator Positive Pressure 7 02/12/24 22:34 Support Setting Positive End Expiratory 7 02/13/24 07:10 Pressure Fraction of Inspired Oxygen 40 02/13/24 07:10 Peak Inspiratory Flow 37 02/13/24 07:10 Machine Comment PEEP and FiO2 changes made per 02/12/24 05:35 ABG results. Stefan Cohron RADIATION THERAPY TECHNICIAN CCM aware Ventilator - PT Measurements Respiratory Rate 15 Exhaled Tidal Volume 370 Minute Ventilation 5.5 Peak Inspiratory Airway 18 Pressure Plateau Pressure 16.8 Respiratory Cycle Inspiratory: 1:4.4 Expiratory Ratio Inspiratory Phase Time 0.80 End-Tidal CO2 38 Static Lung Compliance 37.76 Dynamic Lung Compliance 33.64 Normal Static Lung Compliance 48.00 Patient Measurements Comment trach suctioned, oral suction Coding Level of Care Code 60298 CRITICAL CARE 1ST 30-74M Diagnoses Acute hypoxemic respiratory failure J96.01 GERD (gastroesophageal reflux disease) K21.9 ALS (amyotrophic lateral sclerosis) G12.21 Aspiration into respiratory tract T17.908A Pneumonia J18.9 History of pulmonary embolism Z86.711
[2024-02-13] MEDS ORDERED: ENOXAPARIN 100 MG/1ML SYR SQ SCH (09:00)
[2024-02-13] MEDS: HYDROCORTISONE SOD 50 MG in SYRINGE 0 ML IV ONE (10:29)
[2024-02-13] MEDS: PLASMA-LYTE A 1,000 ML IV SCH ×2 (10:29→11:50)
--- NOTE | 2024-02-13 11:54 | History & Physical Bridge Note ---
Date of Service February 13, 2024 History & Physical Bridge Note I have examined the patient, reviewed the History & Physical and in the interval since the performance of the History & Physical I have noted the following changes of clinical significance: no changes noted
--- NOTE | 2024-02-13 12:48 | Hospitalist Progress Note ---
Date of Service February 13, 2024 Assessment & Plan (1) Aspiration pneumonia: (2) Weakness generalized: Plan 48-year-old male with past medical history significant for ALS, orthostatic hypotension, irritable bowel syndrome, GERD, attention deficit disorder without hyperactivity, history of DVT and PE, depression with anxiety, wheelchair-bound at baseline presenting with shortness of breath for the last few days. Acute Hypoxic respiratory Failure Severe sepsis with septic shock POA RLL collapse Aspiration Pneumonia Pt presenting with SOB CTA chest on admission showed collapse of majority of right lower lobe with concern for pneumonia MRSA nares negative Patient was intubated, on mechanical ventilation in the ICU Underwent bronchoscopy, cultures pending Unable to be extubated in setting of progressive ALS (see below), s/p tracheostomy on 02/07 Continue on Zosyn; follow-up on cultures Also in septic shock, had hemodynamic support with vasopressors, was weaned. Currently on midodrine and IV hydrocortisone for BP support Goals of Care discussion- pt and desire full code status, tracheostomy, PEG Lower Extremity discoloration Asymptomatic Arterial Doppler with patent arteries on right, pt deferred on left extremity imaging. ALS quadriplegia in the setting of ALS and nonambulatory status On BiPAP while sleeping at home Goals of Care discussion as above -s/p tracheostomy on 02/07 -PEG tube to be placed by GI unsuccessful, surgery consulted for placement -per Surgery, not a surgical candidate while on pressors -s/p PEG placement by general Surgery on 02/12 Hx of DVT and PE on Eliquis, currently on hold for procedures History of attention deficit disorder without hyperactivity Depression with anxiety continue home meds GERD on omeprazole Neuropathy On gabapentin DVT prophylaxis: Eliquis currently on hold for procedure Diet: NG Tube feeds, plan for PEG placement Disposition: currently in ICU, plan for LTAC Admission and Anticipated Discharge Date Admission Date: February 06, 2024 Subjective Pt was seen with at bedside. Has system to communicate where he uses his eyes. Denied acute acute concerns. Review of Systems Review of Systems: All systems reviewed & are unremarkable except as noted in Subjective Physical Exam Physical Exam: General: laying in bed HEENT: trach in place CV: RRR Resp: Breath sounds clear on anterior chest Abd: soft Results & Data Results & Data Vital Signs (Past 12 Hours) Vital Signs Temp Pulse Resp BP Pulse Ox O2 Del Method FiO2 02/13/24 12:09 36.9 C 81 19 85 L 02/13/24 12:00 40 02/13/24 11:15 85 22 96 4 02/13/24 11:06 36.7 C 86 18 96 02/13/24 10:30 36.5 C 88 22 93 02/13/24 10:30 132/81 02/13/24 10:06 36.4 C L 63 14 91 02/13/24 09:30 127/75 02/13/24 09:30 36.2 C L 76 18 92 02/13/24 09:27 36.2 C L 79 19 92 02/13/24 09:12 36.3 C L 75 18 92 02/13/24 08:00 Mechanical Vent 40 02/13/24 08:00 40 02/13/24 08:00 36.6 C 63 16 95 02/13/24 08:00 104/64 02/13/24 07:10 78 15 96 40 02/13/24 07:09 36.8 C 64 17 94 02/13/24 06:00 36.4 C L 68 14 115/69 92 Mechanical Vent 02/13/24 05:00 37.2 C 69 14 133/78 90 Mechanical Vent 40 02/13/24 04:01 36.8 C 81 14 137/76 93 Mechanical Vent 40 02/13/24 03:56 40 02/13/24 03:23 19 40 02/13/24 02:30 36.8 C 110 H 16 127/75 92 Mechanical Vent
--- NOTE | 2024-02-13 13:17 | Anesthesiology Consultation ---
Date of Service February 13, 2024 Assessment & Plan Chart Review Chart Review: Acceptable Risk for Surgery and Patient NOT seen in Pre Admission Testing Consults Requested none ASA ASA4 Proposed Anesthesia Anesthesia Type: General History Surgery Operation Date: 02/09/24 16:30 Proposed Procedures p Esophagogastroduodenoscopy with Gastric Tube Placement Dr Solorzano - Shimon Solorzano, Operation Date: 02/13/24 07:00 Proposed Procedures p Endoscopic PEG Tube Placement - Saul Pitts DO s versus Open Gastrostomy Tube Placement - Saul Pitts DO Height/Weight Height: 6 ft 2 in Weight: 71.3 kg Allergies Allergy/AdvReac Type Severity Reaction Status Date / Time tramadol AdvReac Unknown GI Verified 02/05/24 22:52 discomfort Medications Home Medications Medication Instructions Recorded Confirmed Last Taken escitalopram oxalate 20 mg tablet 20 mg PO QAM 01/31/19 02/05/24 02/05/24 omeprazole 20 mg capsule,delayed 20 mg PO QAM 01/31/19 02/05/24 02/05/24 release apixaban 5 mg tablet (Eliquis) 5 mg PO BID 11/19/20 02/05/24 02/05/24 ipratropium 0.5 mg-albuterol 3 mg 3 ml inhalation Q6H PRN WHEEZING 07/25/23 02/05/24 Unknown (2.5 mg base)/3 mL nebulization OR SOB soln ondansetron 4 mg disintegrating 4 mg PO Q6H PRN nausea and 07/25/23 02/05/24 Unknown tablet vomiting #14 tabs ergocalciferol (vitamin D2) 1,250 50,000 unit PO Q7D #7 caps 08/17/23 02/05/24 02/04/24 mcg (50,000 unit) capsule gabapentin 300 mg capsule 300 mg PO TID 11/14/23 02/05/24 02/05/24 mirtazapine 15 mg tablet 15 mg PO HS 11/14/23 02/05/24 02/04/24 clonazepam 0.5 mg tablet 0.25 - 0.5 mg PO HS 02/05/24 02/05/24 02/04/24 dextroamphetamine-amphetamine 15 15 mg PO TID 02/05/24 02/05/24 Unknown mg tablet scopolamine base 1 mg over 3 days 1 patch topical [id number] 02/05/24 02/05/24 02/04/24 transdermal patch Active Medications Generic Name Dose Route Start Last Admin Trade Name Freq PRN Reason Stop Dose Admin Clonazepam 0.5 mg 02/07/24 21:00 02/12/24 20:24 Clonazepam 0.25 Mg Od Tab PO 03/08/24 20:59 0.5 mg HS CESAR Administration Enteral Nutritional Formula 1,000 ml 02/06/24 17:00 02/12/24 11:34 Peptamen 1.5 Harman 1,000 Ml Bag OG 03/07/24 16:59 1,000 ml .See Protocol CESAR Administration Protocol Escitalopram Oxalate 20 mg 02/07/24 09:00 02/13/24 08:25 Escitalopram Oxalate Oral Soln 20 Mg/20 Ml Udp NG 03/08/24 08:59 20 mg QAM CESAR Administration Gabapentin 300 mg 02/06/24 14:00 02/13/24 08:26 Gabapentin 250 Mg/5 Ml 470 Ml Btl PO 03/07/24 13:59 300 mg TID CESAR Administration Hydromorphone HCl 0.5 mg 02/10/24 19:28 02/13/24 12:38 Hydromorphone Inj 0.5 Mg/0.5 Ml Syr IV 02/23/24 14:03 0.5 mg Q6H PRN Administration Severe Pain (Scale 7, 8, 9,10) Hydrocortisone Sodium 1 mls @ 4 mls/min 02/11/24 18:00 02/13/24 09:00 Succinate 50 mg/ Syringe IV 03/12/24 17:59 4 mls/min Q8H CESAR Administration Lorazepam 0.5 mg/ Syringe 0.5 mls @ 2 mls/min 02/11/24 15:08 02/13/24 10:48 IV 03/12/24 15:07 2 mls/min Q8H PRN Administration Anxiety/Agitation Parenteral Electrolytes 1,000 mls @ 100 mls/hr 02/13/24 12:00 02/13/24 11:50 Plasma-Lyte A Ph 7.4 IV 03/14/24 11:59 100 mls/hr .Q10H CESAR Administration Lansoprazole 30 mg 02/07/24 09:00 02/13/24 08:27 Lansoprazole 30 Mg Soltab OG 03/08/24 08:59 30 mg QAM CESAR Administration Midodrine 7.5 mg 02/10/24 12:00 02/13/24 11:50 Midodrine Hcl 2.5 Mg Tab PO 03/11/24 11:59 7.5 mg TID@0800,1200,1700 CESAR Administration Mirtazapine 15 mg 02/06/24 21:00 02/12/24 20:24 Mirtazapine Tab 15 Mg Tab PO 03/07/24 20:59 15 mg HS CESAR Administration Miscellaneous 1 each 02/10/24 08:59 02/13/24 08:25 Remove Transderm-Scop Patch N/A 03/11/24 08:58 1 each Q72H CESAR Administration Oxycodone HCl 5 mg 02/10/24 10:13 02/13/24 08:33 Oxycodone Hcl Soln 5 Mg/5 Ml Udc NG 02/23/24 11:59 5 mg Q6H PRN Administration Moderate Pain (Scale 4, 5, 6) Scopolamine 1 patch 02/07/24 09:00 02/13/24 08:27 Scopolamine 1 Mg/72 Hr Tdsy Patch TD 03/08/24 08:59 1 patch Q3D CESAR Administration Sterile Water 175 ml 02/06/24 17:00 02/13/24 12:28 Tube Feeding Water Flush OG 03/07/24 16:59 Not Given Q4H CESAR NPO Date Last Intake of Fluids: 02/08/24 Time Last Intake of Fluids: 23:50 Date Last Intake of Solids: 02/08/24 Time Last Intake of Solids: 23:59 Past Medical History Medical History Depression (11/28/12) Bronchitis (11/28/12) History of ventilator dependency Acute hypoxemic respiratory failure Acute dyspnea SBO (small bowel obstruction) History of pulmonary embolism ADD (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 GERD (gastroesophageal reflux disease) ALS (amyotrophic lateral sclerosis) Exercise / Class Metabolic Activity IV < 2 Limit ADL/Bedbound Past Family History Family History Father Pulmonary embolism Mother Hypertension Past Surgical History Surgical History Hx of tracheostomy History of vasectomy H/O rhinoplasty S/P left knee arthroscopy Past Anesthesia History No Hx of Anesthesia Complications and No Family Hx of Anesthesia Complications History of PONV No Hx of PONV and No Hx of Motion Sickness Social History Smoking Status: Never smoker Do You Dip or Chew Tobacco: No Hx Alcohol Use: No Alcohol type: hard liquor alcohol intake frequency: holidays/special occasions only Hx Substance Use: No substance use type: does not use Physical Exam Vital Signs Last Vital Signs Temp 36.9 C 02/13/24 12:09 Pulse 81 02/13/24 12:09 Resp 19 02/13/24 12:09 BP 132/81 02/13/24 10:30 Pulse Ox 85 L 02/13/24 12:09 O2 Del Method Mechanical Vent 02/13/24 08:00 O2 Flow Rate 40 02/12/24 19:19 FiO2 40 02/13/24 12:00 Testing Laboratory Results 02/13/24 04:22 02/13/24 04:22 PT 10.8 Seconds (9.0-12.0) 02/07/24 17:09 INR 1.0 (0.9-1.1) 02/07/24 17:09 APTT 31 Seconds (21-31) 02/07/24 17:09 Urine Color Yellow 02/06/24 03:56 Urine Appearance Clear (Clear) 02/06/24 03:56 Urine pH 5.5 (4.5-7.5) 02/06/24 03:56 Ur Specific Hagan > 1.045 (1.000-1.030) H 02/06/24 03:56 Urine Protein Negative (Negative) 02/06/24 03:56 Urine Glucose (UA) Negative (Negative) 02/06/24 03:56 Urine Ketones Negative (Negative) 02/06/24 03:56 Urine Nitrite Negative (Negative) 02/06/24 03:56 Ur Leukocyte Esterase Negative (Negative) 02/06/24 03:56 Urine WBC (Auto) 0-5 /hpf (0-5) 02/06/24 03:56 Urine RBC (Auto) >20 /hpf (0-2) H 02/06/24 03:56 U Hyaline Cast (Auto) 0-2 /lpf (0-2) 02/06/24 03:56 U Epithel Cells (Auto) 0-2 /hpf (0-2) 02/06/24 03:56 Urine Bacteria (Auto) None Seen (None Seen) 02/06/24 03:56 02/05/24 21:17 Aerobic Blood Culture - Final Blood No growth in Aerobic bottle after 5 days. Anaerobic Blood Culture - Final No growth in Anaerobic bottle after 5 days. 02/05/24 20:33 Aerobic Blood Culture - Final Blood No growth in Aerobic bottle after 5 days. Anaerobic Blood Culture - Final No growth in Anaerobic bottle after 5 days. 02/06/24 11:40 Fungal Smear - Final Bronch Wash,Right Lower Lobe Fungal Culture - Preliminary Rosalba albicans/dubliniensis 02/06/24 11:40 Gram Stain - Final Bronch Wash,Right Lower Lobe Bronchial Culture - Final Light normal toro. 02/06/24 11:40 Acid Fast Bacilli Smear - Final Ba Lavage,Right Lower Lobe 02/13/24 12:05 POC Glucose 106 H Electrocardiogram Date: 02/13/24 Findings: + NSR @ (@ 64 w SA) Chest X-Ray Date: 02/12/24 Findings: + infiltrate (bibasilar airspaceopacities) and + other (NGT/Trach tube in place) Echocardiogram Date: 02/15/20 EF: 50% LV Function: normal RWMA: + none [id number] dilated;RV Sys pressure 40-50 Torr;Flattened septum,c/w RV pressure overload
[2024-02-13] MEDS ORDERED: MIDAZOLAM HCL 1 MG/ML 2ML VIAL ONE (14:44)
[2024-02-13] MEDS ORDERED: fentaNYL citrate PF 100 MCG/2 ML VIAL IV PRN (14:45)
[2024-02-13] MEDS ORDERED: FLUMAZENIL 0.1 MG/1 ML 10 ML VIAL IV PRN (14:45)
[2024-02-13] MEDS ORDERED: ONDANSETRON INJ 2 MG/ML 2 ML VIAL IV PRN (14:45)
[2024-02-13] MEDS ORDERED: ATROPINE SULFATE 0.1 MG/ML 10ML SYR IV PRN (14:45)
[2024-02-13] MEDS ORDERED: NALOXONE HCL 0.4 MG/1 ML VIAL/CARP IV PRN (14:45)
[2024-02-13] MEDS ORDERED: ePHEDrine sulfate 50 MG/ML AMP IV PRN (14:45)
[2024-02-13] MEDS ORDERED: PROMETHAZINE HCL 6.25 MG in SODIUM CHLORIDE 0.9% 50 ML IV PRN (14:45)
[2024-02-13] MEDS: ceFAZolin 2000MG 2,000 MG/15 ML SYR IV ONE (15:24)
[2024-02-13] MEDS ORDERED: ceFAZolin 330 MG/ML 1 GM VIAL ONE (15:34)
--- NOTE | 2024-02-13 16:06 | Operative Report ---
[facility] Post Operative Report Pre & Post Diagnosis Operation Date: 02/13/24 07:00 Pre-Op Diagnosis: Need for feeding tube. Post-Op Diagnosis: Need for feeding tube. I identified the patient and participated in the time-out.: Yes Procedure Operation Date: 02/13/24 07:00 Actual Procedures p Esophagogastroduodenoscopy, Endoscopic percutaneous endoscopic gastrostomy placement - Saul Pitts DO Surgeon Saul Pitts DO Day Trader n/a Estimated Blood Loss 3 Findings Consistent with Post-Op Diagnosis Specimens none Description of Procedure After informed consent was obtained the patient was brought from the intensive care unit directly to the operating room. He already had a tracheostomy in place. He was moved on to the OR table. General anesthetic was applied. The abdomen was then shaved and sterilely prepped and draped. I then performed an EGD. A lubricated gastroscope and inserted into the oropharynx and the proximal esophagus without difficulty. Keeping the lumen in view at all times the scope was passed down into the stomach through the pylorus and the first second third portion of the duodenum. The scope was withdrawn back in the distal stomach. I was able to transilluminate through the anterior abdominal wall from the epigastrium to the left upper quadrant. At this point I put on sterile gloves. I made a small incision directly over the light. I then advanced an 18-gauge needle with a vascular sheath into the lumen of the stomach on the first pass. I remove the needle. I passed the blue guidewire into the lumen of the stomach. I then went back to the gastroscope. I advanced a snare and grasped the blue guidewire was able to pull it out through the oropharynx. I connected it to a 24 Arabic gastrostomy tube. I then pulled the wire out through the anterior abdominal wall bringing the feeding tube with it. I then placed the external bumper as well as feeding adapters and clamp. I then reperformed the gastroscope to verify tube position. This sat at about 3 cm and was in the distal aspect of the stomach. The stomach was decompressed. The nasogastric tube was removed as was the gastroscope. The patient was awakened and transferred back to the intensive care unit in guarded condition. I attest to the content of the Intraoperative Record and any orders documented therein. Any exceptions are noted below.
[2024-02-13] MEDS ORDERED: ONDANSETRON INJ 2 MG/ML 2 ML VIAL ONE (16:18)
[2024-02-13] MEDS ORDERED: PHENYLEPHRINE 100MCG/ML 10ML SYR IV ONE (16:18)
[2024-02-13] MEDS ORDERED: PROPOFOL IV EMULSION 10 MG/ML 20 ML VIAL IV ONE (16:18)
[2024-02-13] MEDS ORDERED: ROCURONIUM BROMIDE 10 MG/ML 5 ML VIAL IV ONE (16:18)
[2024-02-13] MEDS: ONDANSETRON INJ 2 MG/ML 2 ML VIAL IV PRN (16:49)
--- NOTE | 2024-02-13 17:02 | Anesthesiology Progress Note ---
Date of Service February 13, 2024 Anesthesia Post Procedure Vital Signs Vital Signs: Temp Pulse Pulse Pulse Resp BP BP 02/13/24 16:20 97.3 F L 77 14 142/83 H 02/13/24 16:19 96 H 14 02/13/24 16:10 97.3 F L 90 90 14 139/88 02/13/24 16:00 02/13/24 16:00 97.3 F L 68 14 110/68 02/13/24 14:30 98.4 F 81 16 02/13/24 14:30 118/70 02/13/24 14:18 98.2 F 82 16 02/13/24 13:33 98.6 F 86 22 105/64 02/13/24 13:30 98.4 F 68 16 105/64 02/13/24 13:06 98.4 F 69 14 02/13/24 13:00 98.4 F 70 131/80 02/13/24 12:30 98.4 F 75 16 02/13/24 12:30 130/83 02/13/24 12:30 98.4 F 81 130/83 02/13/24 12:09 98.4 F 81 19 02/13/24 12:00 98.4 F 83 16 126/83 02/13/24 12:00 02/13/24 11:30 98.2 F 88 16 152/102 H 02/13/24 11:15 85 22 02/13/24 11:06 98.1 F 86 18 02/13/24 11:00 97.9 F 81 16 129/83 02/13/24 10:30 97.7 F 88 22 02/13/24 10:30 132/81 02/13/24 10:06 97.5 F L 63 14 02/13/24 10:00 97.3 F L 80 16 133/80 02/13/24 09:30 127/75 02/13/24 09:30 97.2 F L 76 18 02/13/24 09:27 97.2 F L 79 19 02/13/24 09:12 97.3 F L 75 18 02/13/24 08:30 97.7 F 88 16 120/81 02/13/24 08:00 02/13/24 08:00 02/13/24 08:00 97.9 F 63 16 02/13/24 08:00 104/64 02/13/24 07:30 97.9 F 89 16 116/76 02/13/24 07:10 78 15 02/13/24 07:09 98.2 F 64 17 02/13/24 07:00 98.2 F 68 16 80/54 L 02/13/24 06:00 97.5 F L 68 14 115/69 02/13/24 05:00 99.0 F 69 14 133/78 02/13/24 04:01 98.2 F 81 14 137/76 02/13/24 03:56 02/13/24 03:23 19 02/13/24 02:30 98.2 F 110 H 16 127/75 02/13/24 00:28 135/84 02/13/24 00:27 98.1 F 90 17 02/13/24 00:03 98.2 F 64 15 133/75 02/13/24 00:00 70 02/13/24 00:00 02/12/24 23:03 98.2 F 71 16 02/12/24 22:34 95 H 17 02/12/24 22:03 98.1 F 80 20 99/61 L 02/12/24 20:15 98.1 F 79 17 02/12/24 20:04 97 H 20 02/12/24 20:00 02/12/24 20:00 02/12/24 19:19 65 14 99/65 L 02/12/24 19:06 98.2 F 65 15 78/50 L 02/12/24 18:00 98.6 F 69 15 02/12/24 18:00 88/55 L 02/12/24 17:06 98.4 F 67 16 93/56 L Pulse Ox O2 Del Method O2 Flow Rate FiO2 02/13/24 16:20 94 Mechanical Vent 30 02/13/24 16:19 96 30 02/13/24 16:10 100 Mechanical Vent 30 02/13/24 16:00 30 02/13/24 16:00 100 Mechanical Vent 40 02/13/24 14:30 99 02/13/24 14:30 02/13/24 14:18 96 02/13/24 13:33 97 Room Air 02/13/24 13:30 98 Mechanical Vent 40 02/13/24 13:06 99 02/13/24 13:00 99 Mechanical Vent 40 02/13/24 12:30 85 L 02/13/24 12:30 02/13/24 12:30 91 Mechanical Vent 40 02/13/24 12:09 85 L 02/13/24 12:00 96 Mechanical Vent 02/13/24 12:00 40 02/13/24 11:30 94 Mechanical Vent 40 02/13/24 11:15 96 4 02/13/24 11:06 96 02/13/24 11:00 94 Mechanical Vent 40 02/13/24 10:30 93 02/13/24 10:30 02/13/24 10:06 91 02/13/24 10:00 92 Mechanical Vent 40 02/13/24 09:30 02/13/24 09:30 92 02/13/24 09:27 92 02/13/24 09:12 92 02/13/24 08:30 97 Mechanical Vent 40 02/13/24 08:00 Mechanical Vent 40 02/13/24 08:00 40 02/13/24 08:00 95 02/13/24 08:00 02/13/24 07:30 91 Mechanical Vent 40 02/13/24 07:10 96 40 02/13/24 07:09 94 02/13/24 07:00 92 Mechanical Vent 40 02/13/24 06:00 92 Mechanical Vent 02/13/24 05:00 90 Mechanical Vent 40 02/13/24 04:01 93 Mechanical Vent 40 02/13/24 03:56 40 02/13/24 03:23 40 02/13/24 02:30 92 Mechanical Vent 02/13/24 00:28 02/13/24 00:27 96 02/13/24 00:03 93 02/13/24 00:00 02/13/24 00:00 40 02/12/24 23:03 95 02/12/24 22:34 70 L 02/12/24 22:03 94 02/12/24 20:15 98 02/12/24 20:04 100 40 02/12/24 20:00 Mechanical Vent 02/12/24 20:00 40 02/12/24 19:19 96 Mechanical Vent 40 02/12/24 19:06 96 02/12/24 18:00 94 02/12/24 18:00 02/12/24 17:06 93 Pain Intensity Neck: Pain Intensity: 0 Transfer of Care Handoff Completed per policy Notes Patient Amnestic to Procedure: Yes Nausea / Vomiting: adequately controlled Pain: adequately controlled Airway Patency, RR, SpO2: stable & adequate BP & HR: stable & adequate Hydration State: stable & adequate Anesthetic Complications: no major complications apparent Notes: patient sedated upon arrival to ICU, vent dependent
[2024-02-13] MEDS: ACETAMINOPHEN 1,000 MG/100 ML VIAL IV PRN (19:40)
[2024-02-14] MEDS: ALBUMIN 5% 250 ML IV ONE (00:56)
[2024-02-14] MEDS ORDERED: STAT IV Infusion **Titration per Protocol STA (03:08)
[2024-02-14] MEDS: NOREPINEPHRINE/D5W 4 MG/250 ML PLCT IV SCH (03:21)
[2024-02-14 04:13] LABS: iSTAT Allen Test Pass; iSTAT Art Bld Gas pCO2 Correct 41 mmHg (35-46); iSTAT Art Bld Gas pH Corrected 7.492 (7.35-7.45); iSTAT Arterial Blood Gas HCO3 32 meg/L (19-24); iSTAT Arterial Blood Gas pCO2 42 mmHg (35-46); iSTAT Arterial Blood Gas pH 7.49 (7.35-7.45); iSTAT Arterial Blood Gas pO2 44 mmHg (80-95); iSTAT Arterial Blood Gas pO2 C 43; iSTAT Carbon Dioxide 33 mmol/L (24-31); iSTAT FiO2 30 %; iSTAT Hematocrit 26 % (42-52); iSTAT Hemoglobin 8.8 g/dl (14.0-18.0); iSTAT Potassium 2.8 mmol/L (3.3-5.0); iSTAT Site L Radial; iSTAT Sodium 140 mmol/L (135-144)
[2024-02-14 05:05] LABS: Hematocrit (blood only) 30.2 % (42.0-52.0); Hemoglobin 9.8 g/dl (14.0-18.0); Immature Granulocytes # (auto) 0.02 K/uL (0.01-0.20); Immature Granulocytes % (auto) 0.4 %; Lymphocytes # (auto) 0.57 K/uL (1.20-3.40); Lymphocytes % (auto) 10.9 %; Mean Corpuscular Hemoglobin 29.1 pg (25.0-34.0); Mean Corpuscular Hgb Conc 32.5 g/dL (32.0-36.0); Mean Corpuscular Volume 89.6 fL (80.0-100.0); Mean Platelet Volume 10.6 fL (9.4-12.4); Monocytes # (auto) 0.43 K/uL (0.11-0.59); Monocytes % (auto) 8.2 %; Neutrophils # (auto) 4.23 K/uL (1.40-6.50); Neutrophils % (auto) 80.5 %; Platelet Count 387 K/uL (130-400); RDW Coefficient of Variation 13.6 % (11.5-14.5); RDW Standard Deviation 43.9 fL (36.4-46.3); Red Blood Count 3.37 M/uL (4.70-6.10); White Blood Count 5.25 K/ul (4.8-10.8)
[2024-02-14 05:29] LABS: Anion Gap 8 (3-11); Blood Urea Nitrogen 5 mg/dl (6-23); Calcium 8.2 mg/dl (8.6-10.3); Carbon Dioxide 31 mmol/L (21-32); Chloride 104 mmol/L (98-107); Creatinine Clr Calc Pharmacy 455.6 ml/min; Est GFR (African American) > 150.0 ml/min; Est GFR (Non-African American) > 150.0 ml/min; Glucose 99 mg/dl (70-99(Fasting)); Phosphorus 3.5 mg/dl (2.5-4.9); Sodium 143 mmol/L (136-145)
[2024-02-14] MEDS: POTASSIUM CHLORIDE / WTR 10 MEQ/100 ML PLCT IV SCH (06:49)
--- NOTE | 2024-02-14 08:10 | XRay Report ---
XR chest 1V portable HISTORY: Resp failure COMPARISON: Chest 02/12/2024. FINDINGS: Patchy bibasilar densities have slightly improved. There are trace bilateral pleural effusi ons. The heart is normal in size. A percutaneous gastrostomy tube is noted. A tracheostomy tube appea rs in good position. No pneumothorax. No evidence for pulmonary edema. No acute fractures identified. IMPRESSION: 1. Satisfactory support line placement. 2. Patchy bibasilar densities have slightly improved. ACT 112: Negative or not required by law. Electronically signed by: Eric Renee M.D. 02/14/2024 8:08 AM
--- NOTE | 2024-02-14 10:01 | Critical Care Progress Note ---
Date of Service February 14, 2024 Assessment & Plan (1) Acute hypoxemic respiratory failure: (2) GERD (gastroesophageal reflux disease): (3) ALS (amyotrophic lateral sclerosis): (4) Aspiration into respiratory tract: (5) Pneumonia: (6) History of pulmonary embolism: Plan Assessment: Pt is a 48 yo male with a hx of ALS who is wheelchair bound with quadriplegia, IBS, GERD, ADD, anxiety and depression, and hx DVT and PE who presents to the hospital on 02/04 for several days of worsening SOB and respiratory distress admitted to the ICU for ongoing respiratory distress and aspiration requiring intubation and mechanical ventilation. 24 hour events: No major events. Neurologic -ALS. -Postop day 6 patient status post tracheostomy 02/08/2024: Discontinue sutures as he is having intermittent pain at tracheostomy site -Consider tracheostomy tube change tomorrow Anxiety: -Ativan: Transition from IV to enteral today -Increased Lexapro from 20 mg every morning to 30 per psychiatry recommendation -Decrease Remeron from 15 to 7.5 -Adjunctive olanzapine 5 mg every morning -Clonazepam half milligram nightly: Home medication Pain: -Transition from Dilaudid to oxycodone hopefully after PEG placement Neurontin 300 mg 3 times daily: Home medication Cardiac --Shock: Resolved last echo in our system is 2019 with EF 50-55% with right ventricular and IVC dilation. US negative for DVT and CTA neg for PE. Takes eliquis BID for hx PE/DVT diagnosed February 2020 -Hypotension/dysautonomia: Midodrine 10 mg 3 times daily Respiratory -- Acute respiratory failure with hypoxia: Improving Has hx of ALS. On admission, CXR showed RLL opacity and chest Treating right lower lobe pneumonia. Status post bronchoscopy x 2 with clearance of mucous. -Appears to be entering chronic respiratory failure secondary to neuromuscular disease Reviewed ventilator settings, decrease rate to 12 SIMV mode [facility] culture negative for any bacteria. Is growing Rosalba which is most likely contaminant Gastrointestinal Postop day 1 PEG tube placement by general surgery Renal/electrolytes No major issues. Replace electrolytes as needed. Genitourinary No concerns at this time, discontinue Jean Baptiste catheter transition to condom cath -Patient previously used diapers Endocrine Weaning hydrocortisone 50 mg from every 8 to every 12 starting tomorrow Hematologic -- Normocytic anemia Superficial thrombophlebitis diagnosed 02/14/2024 History of VTE and lower extremity in February 2020. -Patient became wheelchair-bound in August 2020, family reports he is essentially paraplegic since that time. -Studies indicate increased risk of VTE in the setting of ALS however it is not clear whether that increased risk continues with time from initial diagnosis/chronic immobility -Given the patient has superficial thrombophlebitis I feel it is prudent to continue anticoagulation given there are no obvious contraindications of major bleeding or gastrointestinal hemorrhage -Eliquis 5 mg twice daily Infectious disease Completed 7 days of effective therapy for aspiration pneumonia --Prophylaxis VTE: Lovenox: Eliquis GI: Lansoprazole Lines: Peripheral Diet: Tube feeds to resume if tolerating wants to continuous goal would consider transition to bolus feedings Disposition: Stable for LTAC disposition Admission and Anticipated Discharge Date Admission Date: February 06, 2024 Results & Data Results & Data Vital Signs (Past 12 Hours) Vital Signs Temp Pulse Resp BP Pulse Ox O2 Del Method FiO2 02/14/24 07:17 136 H 22 100 50 02/14/24 06:11 37 C 69 14 91/56 L 100 Mechanical Vent 50 02/14/24 05:06 37.0 C 98 H 16 96 02/14/24 05:00 103/67 02/14/24 04:30 117/68 02/14/24 04:30 36.9 C 79 16 98 02/14/24 04:00 36.7 C 72 16 112/66 99 02/14/24 04:00 36.8 C 71 16 130/81 97 Mechanical Vent 50 02/14/24 04:00 30 02/14/24 03:40 69 16 95 50 02/14/24 03:06 36.8 C 77 15 88/54 L 85 L 02/14/24 03:03 72 77/51 L 02/14/24 03:01 74/47 L 02/14/24 03:00 36.8 C 74 14 92 02/14/24 03:00 69/48 L 02/14/24 02:00 36.7 C 87 14 128/73 94 02/14/24 01:01 37.2 C 72 14 85/53 L 97 02/14/24 00:15 37.2 C 76 14 86/56 L 97 Mechanical Vent 30 02/14/24 00:15 30 02/14/24 00:00 108 H 02/13/24 23:40 93 H 16 97 30 02/13/24 22:00 37.2 C 98 H 14 120/78 93 Mechanical Vent 30 Coding Level of Care Code 29978 SUB INP/OBS CARE 3/50MIN Diagnoses Acute hypoxemic respiratory failure J96.01 GERD (gastroesophageal reflux disease) K21.9 ALS (amyotrophic lateral sclerosis) G12.21 Aspiration into respiratory tract T17.908A Pneumonia J18.9 History of pulmonary embolism Z86.711 Comment [id number] with [id number]
[2024-02-14] MEDS: OLANZapine ZYDIS 5 MG ORALLY DIS. TAB PO SCH (10:08)
[2024-02-14] MEDS: MIDODRINE HCL 10 MG TAB PO SCH (10:09)
[2024-02-14] MEDS: POTASSIUM CHLORIDE 20 MEQ/15 ML UDC PO STA (10:11)
--- NOTE | 2024-02-14 13:19 | Surgery Progress Note ---
Date of Service February 14, 2024 Assessment & Plan (1) Decreased oral intake: Plan: no issues s/p placement. ok to use will sign off/call if any issues. Admission and Anticipated Discharge Date Admission Date: February 06, 2024 Subjective pt seen. some pain at g-tube site. no drainage. Physical Exam Physical Exam: alert. g-tube in place. no drainage. Results & Data Vital Signs (Past 12 Hours) Vital Signs Temp Pulse Resp BP Pulse Ox O2 Del Method FiO2 02/14/24 10:48 82 21 100 50 02/14/24 07:17 136 H 22 100 50 02/14/24 06:11 37 C 69 14 91/56 L 100 Mechanical Vent 50 02/14/24 05:06 37.0 C 98 H 16 96 02/14/24 05:00 103/67 02/14/24 04:30 117/68 02/14/24 04:30 36.9 C 79 16 98 02/14/24 04:00 36.7 C 72 16 112/66 99 02/14/24 04:00 36.8 C 71 16 130/81 97 Mechanical Vent 50 02/14/24 04:00 30 02/14/24 03:40 69 16 95 50 02/14/24 03:06 36.8 C 77 15 88/54 L 85 L 02/14/24 03:03 72 77/51 L 02/14/24 03:01 74/47 L 02/14/24 03:00 36.8 C 74 14 92 02/14/24 03:00 69/48 L 02/14/24 02:00 36.7 C 87 14 128/73 94 PG Care Time/CCT Total # of Minutes Spent Total Time Spent with Patient: Total time spent is greater than 50% in coordination of care (as documented) at patient's floor/unit and/or counseling patient: Coding Level of Care Code 29103 Post Operative Follow-Up Diagnoses Decreased oral intake R63.8
--- NOTE | 2024-02-14 13:57 | Psychiatric Consultation ---
Date of Consultation February 14, 2024 Impression / Recommendations Impression Unable to ascertain psychiatric diagnosis due to patient's limited interview ability. The primary issue appears to be anxious ruminations likely situational in nature. Stable sleep reported. Overall, I spent a total of 40 minutes with this case including review of chart records, nursing report, direct evaluation of the patient at bedside, counseling the patient, discussion of the patient with the hospitalist provider, discussion with the psychiatric liason during clinical rounds, and documentation in the electronic health record. (1) Anxiety: (2) Decreased oral intake: (3) Dyspnea and respiratory abnormalities: Plan Given that he has been on Escitalopram for 8 years and if on the same 20 mg dose for that period, he may benefit from an increase to 30 mg daily. Mirtazapine has a dose dependent relationship for targeting sleep and appetite symptoms and he may benefit from a reduction to 7.5 mg at bedtime. He reported good anxiety control with as needed lorazepam and will recommend to continue the same dose. Would recommend to continue olanzapine 5 mg daily as an effective adjunct agent to his SSRI. Psych History Identifying Data Alberto Moffett is a 48-year-old white male history of ALS, IBS, GERD, ADD who presents with acute respiratory failure, intubated and transferred to the ICU. Psychiatry consulted for medication optimization for anxiety and depression. Chief Complaint Medication management History of Present Illness Chart review: Patient is currently taking mirtazapine 15 mg at bedtime, escitalopram 20 mg daily, clonazepam 0.5 mg at bedtime, olanzapine 5 mg daily, and lorazepam as needed. Patient is in severe pain and unable to operate his communication device. His is in the room and patient gives permission to conduct the interview t hrough her. reports his ALS was initially slowly progressive and they were in shock to see such rapid deterioration. Patient has had ALS for the last 8 years. 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 Patient has a mother in [place]. Patient has a daughter of 17 years of age from a different marriage and has full custody. Reports he has been treated with antidepressant therapy for the last 15 years; he switched his antidepressant to Lexapro 8 years ago. Patient rates his medication as effective. Psychiatric medication initially started years back when patient experienced vertigo symptoms and felt it was related to anxiety. Current complaint is excessive anxious ruminations occurring throughout the day. On simple yes or no questioning the patient repo rts sleeping well with the current medication regimen and that his lorazepam as needed is effective. Confirms collateral information from his . He denies suicidal ideation. Allergies Allergy/AdvReac Type Severity Reaction Status Date / Time tramadol AdvReac Unknown GI Verified 02/05/24 22:52 discomfort Home Medications Medication Instructions Recorded Confirmed Type escitalopram oxalate 20 mg tablet 20 mg PO QAM 01/31/19 02/05/24 History omeprazole 20 mg capsule,delayed 20 mg PO QAM 01/31/19 02/05/24 History release apixaban 5 mg tablet (Eliquis) 5 mg PO BID 11/19/20 02/05/24 History ipratropium 0.5 mg-albuterol 3 mg 3 ml inhalation Q6H PRN WHEEZING 07/25/23 02/05/24 History (2.5 mg base)/3 mL nebulization OR SOB soln ondansetron 4 mg disintegrating 4 mg PO Q6H PRN nausea and 07/25/23 02/05/24 Rx tablet vomiting #14 tabs ergocalciferol (vitamin D2) 1,250 50,000 unit PO Q7D #7 caps 08/17/23 02/05/24 Rx mcg (50,000 unit) capsule gabapentin 300 mg capsule 300 mg PO TID 11/14/23 02/05/24 History mirtazapine 15 mg tablet 15 mg PO HS 11/14/23 02/05/24 History clonazepam 0.5 mg tablet 0.25 - 0.5 mg PO HS 02/05/24 02/05/24 History dextroamphetamine-amphetamine 15 15 mg PO TID 02/05/24 02/05/24 History mg tablet scopolamine base 1 mg over 3 days 1 patch topical [id number] 02/05/24 02/05/24 History transdermal patch Patient History Medical History Depression (11/28/12) Bronchitis (11/28/12) History of ventilator dependency Acute hypoxemic respiratory failure Acute dyspnea SBO (small bowel obstruction) History of pulmonary embolism ADD (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 GERD (gastroesophageal reflux disease) ALS (amyotrophic lateral sclerosis) Surgical History Hx of tracheostomy History of vasectomy H/O rhinoplasty S/P left knee arthroscopy Family History Father Pulmonary embolism Mother Hypertension Social History Smoking Status: Never smoker Second Hand Exposure: No; Do You Dip or Chew Tobacco: No; Tobacco Cessation Education Requested by Patient: No Hx Alcohol Use: No Hx Substance Use: No Preferred Language: Lao Communication Ability: 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 Beliefs That Will Affect Care: None marital status: Current Living Situation: Spouse current occupational status: employed Other Information That Helps Us Care for You: No Feels Safe at Home: Yes Safety Concerns: Feels Safe At This Time Assistive Devices: CPAP, Mechanical Lift, Scooter/Electric Scooter and Other Physical Exam Mental Examination: in icu bed, tracheostomy Appearance: Disheveled Eye Contact: Fleeting Contact Motor Behavior: Restless Affect: Anxious Thought Content: Intact Hallucinations: None Insight: Fair Judgement: Fair Vital Signs (Past 24 Hours): Last Vital Signs Temp 37 C 02/14/24 06:11 Pulse 82 02/14/24 10:48 Resp 21 02/14/24 10:48 BP 91/56 L 02/14/24 06:11 Pulse Ox 100 02/14/24 10:48 O2 Del Method Mechanical Vent 02/14/24 06:11 O2 Flow Rate 40 02/12/24 19:19 FiO2 50 02/14/24 10:48 Results & Data (PSY) Medications Administered Clonazepam (Clonazepam 0.25 Mg Od Tab) 0.5 mg PO HS CESAR Stop: 03/08/24 20:59 Last Admin: 02/13/24 21:26 Dose: 0.5 mg Documented By: Admin: 02/12/24 20:24 Dose: 0.5 mg Documented By: Admin: 02/11/24 19:48 Dose: 0.5 mg Documented By: Admin: 02/10/24 21:48 Dose: 0.5 mg Documented By: Admin: 02/09/24 21:01 Dose: 0.5 mg Documented By: Admin: 02/08/24 21:05 Dose: 0.5 mg Documented By: Admin: 02/07/24 20:26 Dose: 0.5 mg Documented By: SG Enteral Nutritional Formula (Peptamen 1.5 Harman 1,000 Ml Bag) 1,000 ml OG .See Protocol CESAR; Protocol Stop: 03/07/24 16:59 Last Admin: 02/12/24 11:34 Dose: 1,000 ml Documented By: Admin: 02/11/24 15:09 Dose: 1,000 ml Documented By: Admin: 02/10/24 11:00 Dose: 1,000 ml Documented By: Admin: 02/08/24 10:32 Dose: 1,000 ml Documented By: LD Escitalopram Oxalate (Escitalopram Oxalate Oral Soln 20 Mg/20 Ml Udp) 20 mg NG QAM [facility] Stop: 03/08/24 08:59 Last Admin: 02/14/24 10:09 Dose: 20 mg Documented By: Admin: 02/13/24 08:25 Dose: 20 mg Documented By: Admin: 02/12/24 08:02 Dose: 20 mg Documented By: Admin: 02/11/24 08:45 Dose: 20 mg Documented By: Admin: 02/10/24 07:35 Dose: 20 mg Documented By: Admin: 02/07/24 08:54 Dose: 20 mg Documented By: ANDRE Gabapentin (Gabapentin 250 Mg/5 Ml 470 Ml Btl) 300 mg PO TID [facility] Stop: 03/07/24 13:59 Last Admin: 02/14/24 10:14 Dose: 300 mg Documented By: Admin: 02/13/24 21:00 Dose: Not Given Documented By: Admin: 02/13/24 13:33 Dose: Not Given Documented By: Admin: 02/13/24 08:26 Dose: 300 mg Documented By: Admin: 02/12/24 20:24 Dose: 300 mg Documented By: Admin: 02/12/24 14:41 Dose: 300 mg Documented By: SERGIOG(2) Admin: 02/12/24 08:03 Dose: 300 mg Documented By: Admin: 02/11/24 19:50 Dose: 300 mg Documented By: Admin: 02/11/24 14:02 Dose: 300 mg Documented By: Admin: 02/11/24 08:47 Dose: 300 mg Documented By: Admin: 02/10/24 21:49 Dose: 300 mg Documented By: Admin: 02/10/24 12:59 Dose: 300 mg Documented By: Admin: 02/10/24 07:37 Dose: 300 mg Documented By: Admin: 02/09/24 21:01 Dose: 300 mg Documented By: Admin: 02/09/24 13:21 Dose: 300 mg Documented By: Admin: 02/09/24 12:01 Dose: Not Given Documented By: Admin: 02/08/24 21:05 Dose: 300 mg Documented By: Admin: 02/08/24 13:35 Dose: 300 mg Documented By: Admin: 02/08/24 08:37 Dose: 300 mg Documented By: Admin: 02/07/24 20:26 Dose: 300 mg Documented By: Admin: 02/07/24 13:51 Dose: 300 mg Documented By: Admin: 02/07/24 08:56 Dose: 300 mg Documented By: Admin: 02/06/24 20:39 Dose: 300 mg Documented By: Admin: 02/06/24 14:13 Dose: 300 mg Documented By: WRS Hydromorphone HCl (Hydromorphone Inj 0.5 Mg/0.5 Ml Syr) 0.5 mg IV Q6H PRN PRN Reason: Severe Pain (Scale 7, 8, 9,10) Stop: 02/23/24 14:03 Last Admin: 02/14/24 12:55 Dose: 0.5 mg Documented By: Admin: 02/14/24 05:15 Dose: 0.5 mg Documented By: Admin: 02/13/24 23:07 Dose: 0.5 mg Documented By: Admin: 02/13/24 16:44 Dose: 0.5 mg Documented By: Admin: 02/13/24 12:38 Dose: 0.5 mg Documented By: Admin: 02/13/24 05:08 Dose: 0.5 mg Documented By: Admin: 02/12/24 22:50 Dose: 0.5 mg Documented By: Admin: 02/12/24 14:41 Dose: 0.5 mg Documented By: SANJAY(2) Admin: 02/12/24 05:04 Dose: 0.5 mg Documented By: Admin: 02/11/24 19:47 Dose: 0.5 mg Documented By: Admin: 02/11/24 00:20 Dose: 0.5 mg Documented By: SANJAY Hydrocortisone Sodium (Succinate 50 mg/ Syringe) 1 mls @ 4 mls/min IV Q8H CESAR Stop: 03/12/24 17:59 Last Admin: 02/14/24 10:14 Dose: 4 mls/min Documented By: Admin: 02/14/24 02:03 Dose: 4 mls/min Documented By: Admin: 02/13/24 17:37 Dose: 4 mls/min Documented By: Admin: 02/13/24 09:00 Dose: 4 mls/min Documented By: Admin: 02/13/24 02:08 Dose: 4 mls/min Documented By: Admin: 02/12/24 17:06 Dose: 4 mls/min Documented By: SANJAY(2) Admin: 02/12/24 09:50 Dose: 4 mls/min Documented By: Admin: 02/12/24 02:30 Dose: 4 mls/min Documented By: Admin: 02/11/24 17:46 Dose: 4 mls/min Documented By: MONIK Lorazepam 0.5 mg/ Syringe 0.5 mls @ 2 mls/min IV Q8H PRN PRN Reason: Anxiety/Agitation Stop: 03/12/24 15:07 Last Admin: 02/14/24 02:03 Dose: 2 mls/min Documented By: Admin: 02/13/24 17:50 Dose: 2 mls/min Documented By: Admin: 02/13/24 10:48 Dose: 2 mls/min Documented By: Admin: 02/13/24 02:59 Dose: 2 mls/min Documented By: Admin: 02/12/24 09:49 Dose: 2 mls/min Documented By: Admin: 02/11/24 23:09 Dose: 2 mls/min Documented By: ESHuong Admin: 02/11/24 15:30 Dose: 2 mls/min Documented By: MONIK Acetaminophen (Ofirmev) 1,000 mg in 100 mls @ 400 mls/hr IV Q8H PRN PRN Reason: Pain Stop: 02/16/24 19:18 Last Infusion: 02/14/24 08:21 Dose: Infused Documented By: Admin: 02/14/24 08:06 Dose: 400 mls/hr Documented By: Infusion: 02/13/24 19:55 Dose: Infused Documented By: Admin: 02/13/24 19:40 Dose: 400 mls/hr Documented By: ESG Norepinephrine Bitartrate (Levophed/D5w) 4 mg in 250 mls @ 13.369 mls/hr IV .[id number] CESAR; Protocol Stop: 03/15/24 03:14 Last Titration: 02/14/24 07:08 Dose: 0.05 mcg/kg/min, 13.4 mls/hr Documented By: ESG Co-signed By: ANDRE Titration: 02/14/24 06:05 Dose: 0.05 mcg/kg/min, 13.4 mls/hr Documented By: Titration: 02/14/24 05:36 Dose: 0.03 mcg/kg/min, 8 mls/hr Documented By: Admin: 02/14/24 03:21 Dose: 0.05 mcg/kg/min, 13.4 mls/hr Documented By: ESG Co-signed By: BEBE Lansoprazole (Lansoprazole 30 Mg Soltab) 30 mg OG QAM [facility] Stop: 03/08/24 08:59 Last Admin: 02/14/24 10:11 Dose: 30 mg Documented By: Admin: 02/13/24 08:27 Dose: 30 mg Documented By: Admin: 02/12/24 08:02 Dose: 30 mg Documented By: Admin: 02/11/24 08:46 Dose: 30 mg Documented By: MONIK Midodrine (Midodrine Hcl 10 Mg Tab) 10 mg PO TID@0800,1200,1700 [facility] Stop: 03/15/24 09:59 Last Admin: 02/14/24 10:09 Dose: 10 mg Documented By: ANDRE Mirtazapine (Mirtazapine Tab 15 Mg Tab) 15 mg PO HS [facility] Stop: 03/07/24 20:59 Last Admin: 02/13/24 21:00 Dose: Not Given Documented By: Admin: 02/12/24 20:24 Dose: 15 mg Documented By: Admin: 02/11/24 19:48 Dose: 15 mg Documented By: Admin: 02/10/24 21:48 Dose: 15 mg Documented By: Admin: 02/09/24 21:01 Dose: 15 mg Documented By: Admin: 02/08/24 21:05 Dose: 15 mg Documented By: Admin: 02/07/24 20:26 Dose: 15 mg Documented By: Admin: 02/06/24 20:39 Dose: 15 mg Documented By: SG Miscellaneous (Remove Transderm-Scop Patch) 1 each N/A Q72H [facility] Stop: 03/11/24 08:58 Last Admin: 02/13/24 08:25 Dose: 1 each Documented By: Admin: 02/10/24 07:35 Dose: 1 each Documented By: MONIK Olanzapine (Olanzapine Zydis 5 Mg Orally Dis. Tab) [facility] [place]: 03/15/24 09:14 Last Admin: 02/14/24 10:08 Dose: 5 mg Documented By: ANDRE Ondansetron HCl (Ondansetron Inj 2 Mg/Ml 2 Ml Vial) 4 mg IV Q6H PRN PRN Reason: Nausea Stop: 03/07/24 03:12 Last Admin: 02/13/24 16:49 Dose: 4 mg Documented By: LISA Oxycodone HCl (Oxycodone Hcl Soln 5 Mg/5 Ml Udc) 5 mg NG Q6H PRN PRN Reason: Moderate Pain (Scale 4, 5, 6) Stop: 02/23/24 11:59 Last Admin: 02/14/24 10:14 Dose: 5 mg Documented By: Admin: 02/13/24 08:33 Dose: 5 mg Documented By: Admin: 02/12/24 17:06 Dose: 5 mg Documented By: SANJAY(2) Admin: 02/12/24 11:40 Dose: 5 mg Documented By: Admin: 02/12/24 01:59 Dose: 5 mg Documented By: Admin: 02/11/24 11:39 Dose: 5 mg Documented By: Admin: 02/11/24 05:24 Dose: 5 mg Documented By: Admin: 02/10/24 19:28 Dose: 5 mg Documented By: SANJAY Scopolamine (Scopolamine 1 Mg/72 Hr Tdsy Patch) 1 patch TD Q3D CESAR Stop: 03/08/24 08:59 Last Admin: 02/13/24 08:27 Dose: 1 patch Documented By: Admin: 02/10/24 07:36 Dose: 1 patch Documented By: Admin: 02/07/24 08:54 Dose: 1 patch Documented By: ANDRE Sterile Water (Tube Feeding Water Flush) 175 ml OG Q4H CESAR Stop: 03/07/24 16:59 Last Admin: 02/14/24 10:11 Dose: 175 ml Documented By: Admin: 02/14/24 05:21 Dose: Not Given Documented By: Admin: 02/14/24 01:08 Dose: Not Given Documented By: Admin: 02/13/24 19:17 Dose: Not Given Documented By: Admin: 02/13/24 16:45 Dose: Not Given Documented By: Admin: 02/13/24 12:28 Dose: Not Given Documented By: Admin: 02/13/24 09:00 Dose: Not Given Documented By: Admin: 02/13/24 06:21 Dose: Not Given Documented By: Admin: 02/13/24 00:34 Dose: Not Given Documented By: Admin: 02/12/24 20:24 Dose: 175 ml Documented By: Admin: 02/12/24 14:44 Dose: 175 ml Documented By: ESG(2) Admin: 02/12/24 14:15 Dose: Not Given Documented By: ESG(2) Admin: 02/12/24 08:04 Dose: 175 ml Documented By: Admin: 02/12/24 05:05 Dose: 175 ml Documented By: Admin: 02/12/24 01:47 Dose: 175 ml Documented By: Admin: 02/11/24 19:49 Dose: 175 ml Documented By: Admin: 02/11/24 17:46 Dose: 175 ml Documented By: Admin: 02/11/24 11:35 Dose: 175 ml Documented By: Admin: 02/11/24 08:46 Dose: 175 ml Documented By: Admin: 02/11/24 05:10 Dose: 175 ml Documented By: Admin: 02/11/24 01:05 Dose: 175 ml Documented By: Admin: 02/10/24 21:35 Dose: 175 ml Documented By: Admin: 02/10/24 18:13 Dose: 175 ml Documented By: Admin: 02/10/24 12:55 Dose: 175 ml Documented By: Admin: 02/10/24 11:18 Dose: 175 ml Documented By: Admin: 02/10/24 08:22 Dose: Not Given Documented By: Admin: 02/10/24 05:03 Dose: Not Given Documented By: Admin: 02/10/24 01:44 Dose: Not Given Documented By: Admin: 02/09/24 21:50 Dose: Not Given Documented By: Admin: 02/09/24 17:41 Dose: Not Given Documented By: Admin: 02/09/24 11:57 Dose: Not Given Documented By: Admin: 02/09/24 09:45 Dose: Not Given Documented By: Admin: 02/09/24 04:48 Dose: Not Given Documented By: Admin: 02/09/24 00:16 Dose: 175 ml Documented By: Admin: 02/08/24 21:05 Dose: 175 ml Documented By: Admin: 02/08/24 17:09 Dose: 175 ml Documented By: Admin: 02/08/24 13:39 Dose: 175 ml Documented By: Admin: 02/07/24 08:55 Dose: 175 ml Documented By: Admin: 02/07/24 05:01 Dose: 175 ml Documented By: Admin: 02/06/24 23:59 Dose: 175 ml Documented By: Admin: 02/06/24 20:39 Dose: 175 ml Documented By: Admin: 02/06/24 17:55 Dose: Not Given Documented By: W[place] [address] IN/OBS CONSULT LVL 3,45M Patient Type New History Problem Focused Exam Problem Focused Medical Decision Making Moderate Complexity Diagnoses Anxiety F41.9 Decreased oral intake R63.8 Dyspnea and respiratory abnormalities R06.00; R06.89 Time Spent (min) 45
--- NOTE | 2024-02-14 14:41 | Ultrasound Report ---
LEFT UPPER EXTREMITY VENOUS DOPPLER HISTORY: Left arm swelling. r/o dvt s/p PICC COMPARISON STUDY: None. FINDINGS: The left internal jugular vein is patent. There is normal flow within the left subclavian v ein. There is normal flow and compressibility within the left axillary, basilic, brachial, radial, an d ulnar veins. Near occlusive thrombus within the left cephalic vein measuring 4.8 cm in length at th e antecubital fossa. IMPRESSION: 1. No DVT within the left upper extremity. 2. Near occlusive thrombus within the left cephalic vein at the antecubital fossa consistent with a s uperficial thrombophlebitis. ACT 112: Negative or not required by law. Electronically signed by: Eric Renee M.D. 02/14/2024 2:40 PM
--- NOTE | 2024-02-14 16:46 | Hospitalist Progress Note ---
Date of Service February 14, 2024 Assessment & Plan (1) Aspiration pneumonia: (2) Weakness generalized: Plan 48-year-old male with past medical history significant for ALS, orthostatic hypotension, irritable bowel syndrome, GERD, attention deficit disorder without hyperactivity, history of DVT and PE, depression with anxiety, wheelchair-bound at baseline presenting with shortness of breath for the last few days. Acute Hypoxic respiratory Failure Severe sepsis with septic shock POA RLL collapse Aspiration Pneumonia Pt presenting with SOB CTA chest on admission showed collapse of majority of right lower lobe with concern for pneumonia MRSA nares negative Patient was intubated, on mechanical ventilation in the ICU Underwent bronchoscopy-bronchial washing showed many polys and few gram positive cocci in the culture-negative, fungal culture preliminary Rosalba albicans Unable to be extubated in setting of progressive ALS (see below), s/p tracheostomy on 02/07 Continue on Zosyn; follow-up on cultures-negative so far Septic shock Also in septic shock, had hemodynamic support with vasopressors, was weaned. Currently on midodrine and IV hydrocortisone for BP support Goals of Care discussion- pt and desire full code status, tracheostomy, PEG Remains critical but stable Lower Extremity discoloration Asymptomatic Arterial Doppler with patent arteries on right, pt deferred on left extremity imaging. ALS quadriplegia in the setting of ALS and nonambulatory status On BiPAP while sleeping at home Goals of Care discussion as above -s/p tracheostomy on 02/07 -PEG tube to be placed by GI unsuccessful, surgery consulted for placement -per Surgery, not a surgical candidate while on pressors -s/p PEG placement by general Surgery on 02/12 Started on PEG tube feeding Hx of DVT and PE on Eliquis, currently on hold for procedures History of attention deficit disorder without hyperactivity Depression with anxiety continue home meds GERD on omeprazole Neuropathy On gabapentin DVT prophylaxis: Eliquis currently on hold for procedure Diet: NG Tube feeds, plan for PEG placement Disposition: currently in ICU, plan for LTAC Admission and Anticipated Discharge Date Admission Date: February 06, 2024 Subjective 02/14/2024 The patient was seen and examined in ICU He has been complaining of back pain and renal angles Has moderate shortness of breath at rest with profuse secretions Denies any chest pain and/or palpitation Review of Systems Review of Systems: Unobtainable due to cognitive status Physical Exam Physical Exam: Lying in bed with acute distress due to shortness of breath and pain Constitutional: + ill appearing and average body habitus Eyes: PERRL, conjunctivae normal, anicteric sclerae ENMT: external ear and nose normal, oropharynx normal Neck: trachea midline, no thyromegaly Respiratory: + respiratory distress Auscultation: + diminished lung sounds and + crackles (Bibasilar crackles and transmitted sounds) Cardiovascular: Rate/Rhythm: regular rate and regular rhythm; not tachycardic Heart Sounds: normal S1 and normal S2; no murmur Extremities: + edema (1+ edema bilaterally) Gastrointestinal (Abdomen): Inspection/Auscultation: normal bowel sounds; abdomen not distended Percussion/Palpation: abdomen soft; abdomen nontender Musculoskeletal: Quadriplegic without any acute arthritis in any of the joints Neurologic: Quadriplegia secondary to ALS Lymphatic: no cervical or axillary lymphadenopathy Results & Data Results & Data Vital Signs (Past 12 Hours) Vital Signs Temp Pulse Resp BP Pulse Ox O2 Del Method FiO2 02/14/24 16:25 74 02/14/24 16:00 50 02/14/24 15:04 80 20 100 50 02/14/24 15:00 104/61 02/14/24 14:57 36.9 C 67 16 100 02/14/24 14:00 89/55 L 02/14/24 14:00 37.2 C 71 16 100 02/14/24 13:06 37.2 C 78 16 100 02/14/24 13:00 110/70 02/14/24 12:57 37.2 C 76 19 99 02/14/24 12:00 37.2 C 88 16 99 02/14/24 12:00 50 02/14/24 11:45 117/78 02/14/24 11:39 37.2 C 85 16 94 02/14/24 11:12 37.1 C 80 16 98 02/14/24 11:00 129/85 02/14/24 10:54 37.1 C 82 16 98 02/14/24 10:48 82 21 100 50 02/14/24 10:21 37.0 C 80 16 100 02/14/24 09:03 36.7 C 97 H 16 100 02/14/24 08:00 36.7 C 84 16 100 02/14/24 08:00 50 02/14/24 07:30 131/85 02/14/24 07:30 Mechanical Vent 50 02/14/24 07:17 136 H 22 100 50 02/14/24 07:12 36.8 C 76 16 100 02/14/24 07:00 136/83 02/14/24 06:11 37 C 69 14 91/56 L 100 Mechanical Vent 50 02/14/24 05:06 37.0 C 98 H 16 96 02/14/24 05:00 103/67 Laboratory Results Short CBC 02/14/24 Range/Units 04:39 WBC 5.25 (4.8-10.8) K/ul Hgb 9.8 L (14.0-18.0) g/dl Hct 30.2 L (42.0-52.0) % Plt Count 387 (130-400) K/uL BMP 02/14/24 04:39 Sodium 143 Potassium 3.0 L Chloride 104 Carbon Dioxide 31 BUN 5 L Creatinine < 0.20 L Glucose 99 Calcium 8.2 L Medications Administered Current Inpatient Medications Albuterol (Albut/Ipratrop 3mg/0.5mg Neb 3 Ml Vial) 3 ml INH Q6H PRN; Protocol PRN Reason: WHEEZING OR SOB Stop: 03/07/24 03:12 Apixaban (Apixaban 5 Mg Tablet) 5 mg PO BID [facility] Stop: 03/15/24 20:59 Clonazepam (Clonazepam 0.25 Mg Od Tab) 0.5 mg PO HS [facility] Stop: 03/08/24 20:59 Last Admin: 02/13/24 21:26 Dose: 0.5 mg Enteral Nutritional Formula (Peptamen 1.5 Harman 1,000 Ml Bag) 1,000 ml OG .See Protocol [facility]; Protocol Stop: 03/07/24 16:59 Last Admin: 02/12/24 11:34 Dose: 1,000 ml Escitalopram Oxalate (Escitalopram Oxalate Oral Soln 5 Mg/5 Ml) 30 mg NG QAM [facility] Stop: 03/16/24 08:59 Gabapentin (Gabapentin 250 Mg/5 Ml 470 Ml Btl) 300 mg PO TID [facility] Stop: 03/07/24 13:59 Last Admin: 02/14/24 14:59 Dose: 300 mg Hydrocortisone Sodium (Succinate 50 mg/ Syringe) 1 mls @ 4 mls/min IV Q8H [facility] Stop: 02/15/24 02:00 Last Admin: 02/14/24 10:14 Dose: 4 mls/min Acetaminophen (Ofirmev) 1,000 mg in 100 mls @ 400 mls/hr IV Q8H PRN PRN Reason: Pain Stop: 02/16/24 19:18 Last Infusion: 02/14/24 08:21 Dose: Infused Norepinephrine Bitartrate (Levophed/D5w) 4 mg in 250 mls @ 0 mls/hr IV .Q0M [facility]; Protocol Stop: 03/15/24 03:14 Last Titration: 02/14/24 12:00 Dose: 0 mcg/kg/min, 0 mls/hr Hydrocortisone Sodium (Succinate 50 mg/ Syringe) 1 mls @ 4 mls/min IV Q12 [facility] Stop: 03/16/24 08:59 Lansoprazole (Lansoprazole 30 Mg Soltab) 30 mg OG QAM [facility] Stop: 03/08/24 08:59 Last Admin: 02/14/24 10:11 Dose: 30 mg Lorazepam (Lorazepam 0.5 Mg Tab) 0.5 mg PO Q8H PRN PRN Reason: Anxiety Stop: 03/15/24 14:49 Midodrine (Midodrine Hcl 10 Mg Tab) 10 mg PO TID@0800,1200,1700 [facility] Stop: 03/15/24 09:59 Last Admin: 02/14/24 14:59 Dose: 10 mg Mirtazapine (Mirtazapine Tab 15 Mg Tab) 7.5 mg PO HS [facility] Stop: 03/15/24 20:59 Miscellaneous (Remove Transderm-Scop Patch) 1 each N/A Q72H [facility] Stop: 03/11/24 08:58 Last Admin: 02/13/24 08:25 Dose: 1 each Olanzapine (Olanzapine Zydis 5 Mg Orally Dis. Tab) 5 mg PO QAM [facility] Stop: 03/15/24 09:14 Last Admin: 02/14/24 10:08 Dose: 5 mg Ondansetron HCl (Ondansetron Inj 2 Mg/Ml 2 Ml Vial) 4 mg IV Q6H PRN PRN Reason: Nausea Stop: 03/07/24 03:12 Last Admin: 02/13/24 16:49 Dose: 4 mg Oxycodone HCl (Oxycodone Hcl Soln 5 Mg/5 Ml Udc) 5 mg NG Q6H PRN PRN Reason: Moderate Pain (Scale 4, 5, 6) Stop: 02/23/24 11:59 Last Admin: 02/14/24 10:14 Dose: 5 mg Oxycodone HCl (Oxycodone Hcl Soln 5 Mg/5 Ml Udc) 10 mg PO Q8H PRN PRN Reason: Pain Stop: 02/28/24 15:07 Potassium Chloride (Potassium Chloride 20 Meq/15 Ml Udc) 40 meq PO ONCE ONE Stop: 02/14/24 17:01 Scopolamine (Scopolamine 1 Mg/72 Hr Tdsy Patch) 1 patch TD Q3D [facility] Stop: 03/08/24 08:59 Last Admin: 02/13/24 08:27 Dose: 1 patch Sterile Water (Tube Feeding Water Flush) 175 ml OG Q4H [facility] Stop: 03/07/24 16:59 Last Admin: 02/14/24 13:00 Dose: 175 ml
[2024-02-14] MEDS: POTASSIUM CHLORIDE 20 MEQ/15 ML UDC PO ONE (17:21)
[2024-02-14] MEDS: oxyCODONE HCL SOLN 5 MG/5 ML UDC PO PRN (17:22)
[2024-02-14] MEDS: APIXABAN 5 MG TABLET PO SCH (20:34)
[2024-02-14] MEDS: MIRTAZAPINE TAB 15 MG TAB PO SCH (20:35)
[2024-02-14] MEDS: LORazepam 0.5 MG TAB PO PRN (21:37)
--- NOTE | 2024-02-14 22:55 | Electrocardiogram Report ---
Test Reason : Blood Pressure : / mmHG Vent. Rate : 064 BPM Atrial Rate : 064 BPM P-R Int : 124 ms QRS Dur : 086 ms QT Int : 424 ms P-R-T Axes : 059 078 082 degrees QTc Int : 437 ms Normal sinus rhythm with sinus arrhythmia Normal ECG When compared with ECG of 05-FEB-2024 20:33, T wave inversion now evident in Anterior leads QT has lengthened Confirmed by Rakesh Morris ([id number]) on 02/14/2024 10:55:00 PM Referred By: REFERRED SELF Confirmed By:Rakesh Morris
[2024-02-15] MEDS: traZODone HCL 50 MG TAB PO ONE (04:24)
[2024-02-15 05:27] LABS: Hematocrit (blood only) 29.4 % (42.0-52.0); Hemoglobin 9.5 g/dl (14.0-18.0); Immature Granulocytes # (auto) 0.02 K/uL (0.01-0.20); Immature Granulocytes % (auto) 0.3 %; Lymphocytes # (auto) 0.55 K/uL (1.20-3.40); Mean Corpuscular Hemoglobin 29.5 pg (25.0-34.0); Mean Corpuscular Hgb Conc 32.3 g/dL (32.0-36.0); Mean Corpuscular Volume 91.3 fL (80.0-100.0); Mean Platelet Volume 10.8 fL (9.4-12.4); Monocytes # (auto) 0.57 K/uL (0.11-0.59); Monocytes % (auto) 8.3 %; Neutrophils # (auto) 5.76 K/uL (1.40-6.50); Neutrophils % (auto) 83.4 %; Platelet Count 310 K/uL (130-400); RDW Coefficient of Variation 13.7 % (11.5-14.5); RDW Standard Deviation 45.6 fL (36.4-46.3); Red Blood Count 3.22 M/uL (4.70-6.10)
[2024-02-15 05:44] LABS: Anion Gap 2 (3-11); Blood Urea Nitrogen 7 mg/dl (6-23); Calcium 8.5 mg/dl (8.6-10.3); Carbon Dioxide 31 mmol/L (21-32); Chloride 104 mmol/L (98-107); Creatinine Clr Calc Pharmacy 470.3 ml/min; Est GFR (African American) > 150.0 ml/min; Est GFR (Non-African American) > 150.0 ml/min; Glucose 126 mg/dl (70-99(Fasting)); Lipase 22 U/L (11-82); Phosphorus 3.2 mg/dl (2.5-4.9); Potassium 4.1 mmol/L (3.5-5.1); Sodium 137 mmol/L (136-145)
[2024-02-15] MEDS: HYDROCORTISONE SOD 50 MG in SYRINGE 0 ML IV SCH (09:00)
--- NOTE | 2024-02-15 10:13 | Critical Care Progress Note ---
Date of Service February 15, 2024 Assessment & Plan (1) Acute hypoxemic respiratory failure: (2) GERD (gastroesophageal reflux disease): (3) ALS (amyotrophic lateral sclerosis): (4) Aspiration into respiratory tract: (5) Pneumonia: (6) History of pulmonary embolism: Plan Assessment: Pt is a 48 yo male with a hx of ALS who is wheelchair bound with quadriplegia, IBS, GERD, ADD, anxiety and depression, and hx DVT 24 hour events: No major events. Neurologic -ALS. -Postop day 7 patient status post tracheostomy 02/08/2024 -Tracheostomy changed today Anxiety: -Ativan: Transition from IV to enteral on 02/13 -Increased Lexapro from 20 mg every morning to 30 per psychiatry recommendation on 02/13 -Decrease Remeron from 15 to 7.5 on 02/13 -Adjunctive olanzapine 5 mg every morning on 02/13 -Clonazepam half milligram nightly: Home medication Pain: -Transition from Dilaudid to oxycodone hopefully after PEG placement Neurontin 300 mg 3 times daily: Home medication Cardiac --Shock: Resolved last echo in our system is 2019 with EF 50-55% with right ventricular and IVC dilation. US negative for DVT and CTA neg for PE. Takes eliquis BID for hx PE/DVT diagnosed February 2020 -Hypotension/dysautonomia: Midodrine 10 mg 3 times daily Respiratory -- Acute respiratory failure with hypoxia: Improving Has hx of ALS. On admission, CXR showed RLL opacity and chest Treating right lower lobe pneumonia. Status post bronchoscopy x 2 with clearance of mucous. -Appears to be entering chronic respiratory failure secondary to neuromuscular disease Reviewed ventilator settings, decrease rate to 12 SIMV mode -CPAP trials today [facility] culture negative for any bacteria. Is growing Rosalba which is most likely contaminant Gastrointestinal Postop day 2 PEG tube placement by general surgery Renal/electrolytes No major issues. Replace electrolytes as needed. Genitourinary No concerns at this time, discontinue Jean Baptiste catheter transition to condom cath -Patient previously used diapers Endocrine Weaning hydrocortisone 50 mg twice daily for 2 more doses then discontinue Hematologic -- Normocytic anemia Superficial thrombophlebitis diagnosed 02/14/2024 History of VTE and lower extremity in February 2020. -Patient became wheelchair-bound in August 2020, family reports he is essentially paraplegic since that time. -Studies indicate increased risk of VTE in the setting of ALS however it is not clear whether that increased risk continues with time from initial diagnosis/chronic immobility -Given the patient has superficial thrombophlebitis I feel it is prudent to continue anticoagulation given there are no obvious contraindications of major bleeding or GI hemorrhage -Eliquis 5 mg twice daily Infectious disease Completed 7 days of effective therapy for aspiration pneumonia --Prophylaxis VTE: Lovenox: Eliquis GI: Lansoprazole: Not home med however on systemic anticoagulation, recent PEG tube placement would continue at this time Lines: Peripheral Diet: Tube feeds can transition to bolus feedings Disposition: Stable for LTAC disposition Admission and Anticipated Discharge Date Admission Date: February 06, 2024 Subjective No overnight events. Social work updated me that there is another prior Auth and patient is anticipated to have bed placement at preferred facility in the next 24 to 48 hours. Physical Exam Physical Exam: General: Alert, being suctioned orally by at bedside Skin: Warm, dry, Head: Atraumatic Ears, nose, mouth and throat: airway obscured by endotracheal tube Cardiovascular: Normal peripheral perfusion Respiratory: Ventilator settings reviewed Gastrointestinal: Non distended Musculoskeletal: Atrophy consistent with ALS Results & Data Results & Data Vital Signs (Past 12 Hours) Vital Signs Pulse Resp BP Pulse Ox O2 Del Method O2 Flow Rate FiO2 02/15/24 07:35 77 16 99 30 02/15/24 06:41 74 15 101/58 L 100 Mechanical Vent 30 02/15/24 06:06 68 13 100 Mechanical Vent 30 02/15/24 06:00 112/69 02/15/24 05:57 74 14 96 02/15/24 05:36 71 13 98 Mechanical Vent 30 02/15/24 05:30 92/56 L Mechanical Vent 02/15/24 05:18 69 13 98 02/15/24 04:30 74 14 97 Mechanical Vent 02/15/24 04:30 106/66 02/15/24 04:00 106 H 15 119/71 100 Mechanical Vent 30 02/15/24 04:00 30 02/15/24 03:19 84 18 100 30 02/15/24 03:03 70 21 100 02/15/24 02:06 62 19 100 02/15/24 01:30 96/64 L 02/15/24 01:18 73 19 100 02/15/24 00:06 66 16 100 Mechanical Vent 40 02/15/24 00:00 40 02/14/24 23:15 64 02/14/24 23:00 66 17 100 Mechanical Vent 40 02/14/24 22:56 66 14 100 40 02/14/24 22:12 73 21 100 Critical Care Results & Data Vital Signs (Past 12 Hours) Vital Signs Pulse Resp BP Pulse Ox O2 Del Method FiO2 02/15/24 10:52 81 22 91 40 02/15/24 07:35 77 16 99 30 02/15/24 06:41 74 15 101/58 L 100 Mechanical Vent 30 02/15/24 06:06 68 13 100 Mechanical Vent 30 02/15/24 06:00 112/69 02/15/24 05:57 74 14 96 02/15/24 05:36 71 13 98 Mechanical Vent 30 02/15/24 05:30 92/56 L Mechanical Vent 02/15/24 05:18 69 13 98 02/15/24 04:30 74 14 97 Mechanical Vent 02/15/24 04:30 106/66 02/15/24 04:00 106 H 15 119/71 100 Mechanical Vent 30 02/15/24 04:00 30 02/15/24 03:19 84 18 100 30 02/15/24 03:03 70 21 100 Lab & Micro Results (Past 24 Hours) RBC 3.22 M/uL (4.70-6.10) L 02/15/24 WBC 6.90 K/ul (4.8-10.8) 02/15/24 Hgb 9.5 g/dl (14.0-18.0) L 02/15/24 Hct 29.4 % (42.0-52.0) L 02/15/24 MCV 91.3 fL (80.0-100.0) 02/15/24 MCH 29.5 pg (25.0-34.0) 02/15/24 MCHC 32.3 g/dL (32.0-36.0) 02/15/24 RDW Standard Deviation 45.6 fL (36.4-46.3) 02/15/24 RDW Coefficient of Variation 13.7 % (11.5-14.5) 02/15/24 Plt Count 310 K/uL (130-400) 02/15/24 MPV 10.8 fL (9.4-12.4) 02/15/24 Neutrophils (%) (Auto) 83.4 % 02/15/24 Lymphocytes (%) (Auto) 8.0 % 02/15/24 Monocytes # (Auto) 0.57 K/uL (0.11-0.59) 02/15/24 Eosinophils # (Auto) 0.00 K/uL (0.00-0.50) 02/15/24 Immature Granulocyte % (Auto) 0.3 % 02/15/24 Neutrophils # (Auto) 5.76 K/uL (1.40-6.50) 02/15/24 Lymphocytes # (Auto) 0.55 K/uL (1.20-3.40) L 02/15/24 Monocytes # (Auto) 0.57 K/uL (0.11-0.59) 02/15/24 Eosinophils # (Auto) 0.00 K/uL (0.00-0.50) 02/15/24 Basophils # (Auto) 0.00 K/uL (0.00-0.20) 02/15/24 Immature Granulocyte # (Auto) 0.02 K/uL (0.01-0.20) 4 Na 137 mmol/L (136-145) 02/15/24 K 4.1 mmol/L (3.5-5.1) 02/15/24 Cl 104 mmol/L (98-107) 02/15/24 CO2 31 mmol/L (21-32) 02/15/24 Anion Gap 2 (3-11) L 02/15/24 BUN 7 mg/dl (6-23) 02/15/24 Creatinine < 0.20 mg/dl (0.6-1.4) L 02/15/24 Estimated GFR ( Amer) > 150.0 ml/min 02/15/24 Estimated GFR (Non-Af Amer) > 150.0 ml/min 02/15/24 BUN/Creatinine Ratio TNP 02/15/24 Glu 126 mg/dl (70-99(Fasting)) H 02/15/24 Ca 8.5 mg/dl (8.6-10.3) L 02/15/24 Phosphorus Level 3.2 mg/dl (2.5-4.9) 02/15/24 Mg 2.0 mg/dl (1.7-2.4) 02/15/24 04:56 Calcium Level 8.5 mg/dl (8.6-10.3) L 02/15/24 04:56 I & O Totals 24 Hours 02/14/24 02/15/24 02/16/24 06:59 06:59 06:59 Intake Total 4249.350 / 4249.350 1502.683 / 1502.683 Output Total 905 / 905 150 / 150 225 / 225 Balance 3344.350 / 3344.350 1352.683 / 1352.683 -225 / -225 Cumulative 02/05/24 20:21 thru 02/15/24 11:41 Intake Total 20533.722 Output Total 49984 Balance 22283.722 RT Ventilator Mngmt (Last Documented) Ventilator Ordered Settings Ventilator Support Mode Assist Control 02/15/24 10:52 Respiratory Rate 22 02/15/24 10:52 Ventilator Tidal Volume 370 02/15/24 10:52 Setting Minute Ventilation 8.0 02/15/24 10:52 Ventilator Positive Pressure 7 02/13/24 16:00 Support Setting Positive End Expiratory 8 02/15/24 10:52 Pressure Fraction of Inspired Oxygen 40 02/15/24 10:52 Peak Inspiratory Flow 37 02/13/24 16:19 Machine Comment FiO2 weaned to 30% 02/13/24 16:19 Ventilator - PT Measurements Respiratory Rate 22 Exhaled Tidal Volume 367 Minute Ventilation 8.0 Peak Inspiratory Airway 22 Pressure Plateau Pressure 20 Respiratory Cycle Inspiratory: 1:2.1 Expiratory Ratio Inspiratory Phase Time 0.8 End-Tidal CO2 29 Static Lung Compliance 30.58 Dynamic Lung Compliance 26.21 Normal Static Lung Compliance 47.00 Patient Measurements Comment Per discussion in rounds w/ Dr. Cano, RT attempted SBT w/ pt at this time. Pt started at 10/+8. After several minutes, pt became tachypnic, diaphoretic, hypoxic and had increased WOB. RT increased PS to increase support for pt's breathing, however he continued to not tolerate the wean. FiO2 was required up to 50%. Pt placed back in full support at this time. RN aware. FiO2 was able to be weaned down to 40%. Will continue to wean FiO2 as tolerated. Coding Level of Care Code 59031 SUB INP/OBS CARE 3/50MIN Diagnoses Acute hypoxemic respiratory failure J96.01 GERD (gastroesophageal reflux disease) K21.9 ALS (amyotrophic lateral sclerosis) G12.21 Aspiration into respiratory tract T17.908A Pneumonia J18.9 History of pulmonary embolism Z86.711
[2024-02-15] MEDS: ESCITALOPRAM OXALATE ORAL SOLN 5 MG/5 ML NG SCH (10:40)
[2024-02-15] MEDS: BANATROL TF 60 ML LIQUID PKT PEG SCH (11:30)
--- NOTE | 2024-02-15 12:58 | Hospitalist Progress Note ---
Date of Service February 15, 2024 Assessment & Plan (1) Aspiration pneumonia: (2) Weakness generalized: Plan 48-year-old male with past medical history significant for ALS, orthostatic hypotension, irritable bowel syndrome, GERD, attention deficit disorder without hyperactivity, history of DVT and PE, depression with anxiety, wheelchair-bound at baseline presenting with shortness of breath for the last few days. 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 Currently on midodrine and IV hydrocortisone for BP support Goals of Care discussion- pt and desire full code status, tracheostomy, PEG Remains critical but stable Continue on Zosyn; follow-up on cultures-negative so far Remains hemodynamically stable without any fever Lower Extremity discoloration Asymptomatic Arterial Doppler with patent arteries on right, pt deferred on left extremity imaging. ALS quadriplegia in the setting of ALS and nonambulatory status On BiPAP while sleeping at home Goals of Care discussion as above -s/p tracheostomy on 02/07 -PEG tube to be placed by GI unsuccessful, surgery consulted for placement -per Surgery, not a surgical candidate while on pressors -s/p PEG placement by general Surgery on 02/12 Started on PEG tube feeding-has been tolerating well Hx of DVT and PE on Eliquis, currently on hold for procedures History of attention deficit disorder without hyperactivity Depression with anxiety continue home meds GERD on omeprazole Neuropathy On gabapentin DVT prophylaxis: Eliquis currently on hold for procedure Diet: NG Tube feeds, plan for PEG placement Disposition: currently in ICU, plan for LTAC Admission and Anticipated Discharge Date Admission Date: February 06, 2024 Subjective 02/14/2024 The patient was seen and examined in ICU He has been complaining of back pain and renal angles Has moderate shortness of breath at rest with profuse secretions Denies any chest pain and/or palpitation 02/15/2024 The patient was seen and examined in ICU in presence of the He has been feeling much better Decreasing shortness of breath, decreasing secretions, decreasing pain Remains hemodynamically stable Review of Systems Review of Systems: Other (Has Tracheotomy tube in situ) Physical Exam Physical Exam: Lying in bed with acute distress due to shortness of breath and pain Constitutional: + ill appearing and average body habitus Eyes: PERRL, conjunctivae normal, anicteric sclerae ENMT: external ear and nose normal, oropharynx normal Neck: trachea midline, no thyromegaly (Tracheotomy tube in place) Respiratory: + respiratory distress Auscultation: + diminished lung sounds and + crackles (Bibasilar crackles and transmitted sounds) Cardiovascular: Rate/Rhythm: regular rate and regular rhythm; not tachycardic Heart Sounds: normal S1 and normal S2; no murmur Extremities: + edema (1+ edema bilaterally) Gastrointestinal (Abdomen): Inspection/Auscultation: normal bowel sounds; abdomen not distended Percussion/Palpation: abdomen soft; abdomen nontender Musculoskeletal: Has ALS with quadriplegia Neurologic: Nonverbal due to tracheostomy tube. Quadriplegic Lymphatic: no cervical or axillary lymphadenopathy Results & Data Results & Data Vital Signs (Past 12 Hours) Vital Signs Pulse Resp BP Pulse Ox O2 Del Method FiO2 02/15/24 10:52 81 22 91 40 02/15/24 07:35 77 16 99 30 02/15/24 06:41 74 15 101/58 L 100 Mechanical Vent 02/15/24 06:06 68 13 100 Mechanical Vent 02/15/24 06:00 112/69 02/15/24 05:57 74 14 96 02/15/24 05:36 71 13 98 Mechanical Vent 02/15/24 05:30 92/56 L Mechanical Vent 02/15/24 05:18 69 13 98 02/15/24 04:30 74 14 97 Mechanical Vent 02/15/24 04:30 106/66 02/15/24 04:00 106 H 15 119/71 100 Mechanical Vent 30 02/15/24 04:00 30 02/15/24 03:19 84 18 100 30 02/15/24 03:03 70 21 100 02/15/24 02:06 62 19 100 02/15/24 01:30 96/64 L 02/15/24 01:18 73 19 100 Laboratory Results Short CBC 02/15/24 Range/Units 04:56 WBC 6.90 (4.8-10.8) K/ul Hgb 9.5 L (14.0-18.0) g/dl Hct 29.4 L (42.0-52.0) % Plt Count 310 (130-400) K/uL BMP 02/15/24 04:56 Sodium 137 Potassium 4.1 D Chloride 104 Carbon Dioxide 31 BUN 7 Creatinine < 0.20 L Glucose 126 H Calcium 8.5 L Medications Administered Current Inpatient Medications Albuterol (Albut/Ipratrop 3mg/0.5mg Neb 3 Ml Vial) 3 ml INH Q6H PRN; Protocol PRN Reason: WHEEZING OR SOB Stop: 03/07/24 03:12 Apixaban (Apixaban 5 Mg Tablet) 5 mg PO BID CESAR Stop: 03/15/24 20:59 Last Admin: 02/15/24 10:37 Dose: 5 mg Banana Based Medical Food (Banatrol Tf 60 Ml Liquid Pkt) 60 ml PEG BID CESAR Stop: 03/16/24 10:29 Clonazepam (Clonazepam 0.25 Mg Od Tab) 0.5 mg PO HS [facility]ESAR Stop: 03/08/24 20:59 Last Admin: 02/14/24 20:35 Dose: 0.5 mg Enteral Nutritional Formula (Peptamen 1.5 Harman 1,000 Ml Bag) 1,000 ml OG .See Protocol CESAR; Protocol Stop: 03/07/24 16:59 Last Admin: 02/14/24 12:00 Dose: 1,000 ml Escitalopram Oxalate (Escitalopram Oxalate Oral Soln 5 Mg/5 Ml) 30 mg NG QAM [facility] Stop: 03/16/24 08:59 Last Admin: 02/15/24 10:40 Dose: 30 mg Gabapentin (Gabapentin 250 Mg/5 Ml 470 Ml Btl) 300 mg PO TID CESAR Stop: 03/07/24 13:59 Last Admin: 02/14/24 20:35 Dose: 300 mg Acetaminophen (Ofirmev) 1,000 mg in 100 mls @ 400 mls/hr IV Q8H PRN PRN Reason: Pain Stop: 02/16/24 19:18 Last Infusion: 02/14/24 18:54 Dose: Infused Hydrocortisone Sodium (Succinate 50 mg/ Syringe) 1 mls @ 4 mls/min IV Q12 [facility] Stop: 02/15/24 21:01 Lansoprazole (Lansoprazole 30 Mg Soltab) 30 mg OG QAM [facility] Stop: 03/08/24 08:59 Last Admin: 02/15/24 10:37 Dose: 30 mg Lorazepam (Lorazepam 0.5 Mg Tab) 0.5 mg PO Q8H PRN PRN Reason: Anxiety Stop: 03/15/24 14:49 Last Admin: 02/15/24 10:43 Dose: 0.5 mg Midodrine (Midodrine Hcl 10 Mg Tab) 10 mg PO TID@0800,1200,1700 [facility] Stop: 03/15/24 09:59 Last Admin: 02/15/24 10:38 Dose: 10 mg Mirtazapine (Mirtazapine Tab 15 Mg Tab) 7.5 mg PO HS [facility] Stop: 03/15/24 20:59 Last Admin: 02/14/24 20:35 Dose: 7.5 mg Miscellaneous (Remove Transderm-Scop Patch) 1 each N/A Q72H [facility] Stop: 03/11/24 08:58 Last Admin: 02/13/24 08:25 Dose: 1 each Olanzapine (Olanzapine Zydis 5 Mg Orally Dis. Tab) 5 mg PO QAM [facility] Stop: 03/15/24 09:14 Last Admin: 02/15/24 10:39 Dose: 5 mg Ondansetron HCl (Ondansetron Inj 2 Mg/Ml 2 Ml Vial) 4 mg IV Q6H PRN PRN Reason: Nausea Stop: 03/07/24 03:12 Last Admin: 02/13/24 16:49 Dose: 4 mg Oxycodone HCl (Oxycodone Hcl Soln 5 Mg/5 Ml Udc) 5 mg NG Q6H PRN PRN Reason: Moderate Pain (Scale 4, 5, 6) Stop: 02/23/24 11:59 Last Admin: 02/15/24 10:43 Dose: 5 mg Oxycodone HCl (Oxycodone Hcl Soln 5 Mg/5 Ml Udc) 10 mg PO Q8H PRN PRN Reason: Pain Stop: 02/28/24 15:07 Last Admin: 02/15/24 03:51 Dose: 10 mg Scopolamine (Scopolamine 1 Mg/72 Hr Tdsy Patch) 1 patch TD Q3D [facility] Stop: 03/08/24 08:59 Last Admin: 02/13/24 08:27 Dose: 1 patch Sterile Water (Tube Feeding Water Flush) 175 ml OG Q4H [facility] Stop: 03/07/24 16:59 Last Admin: 02/15/24 10:41 Dose: 175 ml
--- NOTE | 2024-02-15 14:59 | Procedure Note ---
Procedure Note Date of Service February 15, 2024 Note Procedure Date: Noted above Procedure: tracheostomy change Pre-procedure Diagnosis: Tracheostomy management Post-procedure Diagnosis: same as above Prior to Procedure: Attending Staff: Gulshan Cano DO The identity of the patient was confirmed and a bedside time out was performed. Description of Procedure: Patient was evaluated and required a tracheostomy tube change. The patient was position in the usual fashion. A leak test was performed on the new tracheostomy tube, and successfully passed. The tracheostomy ties were loosened. The cuff was deflated and the old 8 tracheostomy tube with removed without difficultly. The new 8 Shiley tracheostomy tube was inserted into the tracheal opening, obturator removed, and connected to the ventilator. Chest rise was bilateral. Bilateral breath sounds were heard without air sounds in the abdomen, and end- tidal CO2 measurement was positive. Complications: Patient tolerated the procedure well without complications. Findings: not applicable Specimens: not applicable Estimated blood loss: Zero Coding CPT Codes Pulmonary/Thoracic - Pulmonary and Thoracic: 71876 Tracheotomy tube change prior to Fistula ([id number]) [facility] [place] Procedure Codes (Charges) Pulmonary/Thoracic Procedure 1: Pulmonary and Thoracic: 02470 Tracheotomy tube change prior to Fistula
[2024-02-15] MEDS: fentaNYL citrate PF 100 MCG/2 ML VIAL ONE (15:00)
[2024-02-15] MEDS: fentaNYL citrate PF 100 MCG/2 ML VIAL IV STA (15:29)
--- NOTE | 2024-02-16 08:28 | Critical Care Progress Note ---
Date of Service February 16, 2024 Assessment & Plan (1) Acute hypoxemic respiratory failure: (2) GERD (gastroesophageal reflux disease): (3) ALS (amyotrophic lateral sclerosis): (4) Aspiration into respiratory tract: (5) Pneumonia: (6) History of pulmonary embolism: Plan Assessment: Pt is a 48 yo male with a hx of ALS who is wheelchair bound with quadriplegia, IBS, GERD, ADD, anxiety and depression, and hx DVT 24 hour events: No major events. Neurologic -ALS. -Postop day 8 patient status post tracheostomy 02/08/2024 -Tracheostomy changed 02/15/2024 Anxiety: -Ativan: Transition from IV to enteral on 02/13 -Increased Lexapro from 20 mg every morning to 30 per psychiatry recommendation on 02/13 -Decrease Remeron from 15 to 7.5 on 02/13 -Adjunctive olanzapine 5 mg every morning on 02/13 -Clonazepam half milligram nightly: Home medication Pain: -Transition from OG oxycodone as needed for pain Neurontin 300 mg 3 times daily: Home medication Cardiac --Shock: Resolved last echo in our system is 2019 with EF 50-55% with right ventricular and IVC dilation. US negative for DVT and CTA neg for PE. Takes eliquis BID for hx PE/DVT diagnosed February 2020 -Hypotension/dysautonomia: Midodrine 10 mg 3 times daily Respiratory -- Acute respiratory failure with hypoxia: Improving Has hx of ALS. On admission, CXR showed RLL opacity and chest Treating right lower lobe pneumonia. Status post bronchoscopy x 2 with clearance of mucous. -Appears to be entering chronic respiratory failure secondary to neuromuscular disease Reviewed ventilator settings, decrease rate to 12 SIMV mode -CPAP trials today [facility] culture negative for any bacteria. Is growing Rosalba which is most likely contaminant Gastrointestinal Postop day 3 PEG tube placement by general surgery Renal/electrolytes No major issues. Replace electrolytes as needed. Genitourinary No concerns at this time, discontinue Jean Baptiste catheter transition to condom cath -Patient previously used diapers Endocrine Hydrocortisone for relative adrenal insufficiency discontinued today Hematologic -- Normocytic anemia Superficial thrombophlebitis diagnosed 02/14/2024 History of VTE and lower extremity in February 2020. -Patient became wheelchair-bound in August 2020, family reports he is essentially paraplegic since that time. -Studies indicate increased risk of VTE in the setting of ALS however it is not clear whether that increased risk continues with time from initial diagnosis/chronic immobility -Given the patient has superficial thrombophlebitis I feel it is prudent to continue anticoagulation given there are no obvious contraindications of major bleeding or GI hemorrhage -Eliquis 5 mg twice daily Infectious disease Completed 7 days of effective therapy for aspiration pneumonia --Prophylaxis VTE: Lovenox: Eliquis GI: Lansoprazole: Not home med, however, on systemic anticoagulation, recent PEG tube placement, and now 100% vent dependency: Would continue at this time, could consider discontinuation in the near future Lines: Peripheral Diet: Tube feeds can transition to bolus feedings Disposition: Stable for LTAC disposition Admission and Anticipated Discharge Date Admission Date: February 06, 2024 Subjective No overnight events Physical Exam Physical Exam: General: Alert, no obvious distress Skin: Warm, dry, Head: Atraumatic Ears, nose, mouth and throat: Tracheostomy tube clean dry intact and secured with trach ties Cardiovascular: Normal peripheral perfusion Respiratory: Ventilator settings reviewed Gastrointestinal: Non distended, PEG tube present Musculoskeletal: Atrophy consistent with ALS Results & Data Results & Data Vital Signs (Past 12 Hours) Vital Signs Temp Pulse Resp BP Pulse Ox O2 Del Method FiO2 02/16/24 05:09 36.6 C 66 15 95/62 L 99 Mechanical Vent 02/16/24 05:03 62 15 100 02/16/24 04:33 73 15 100 02/16/24 04:12 64 14 100 30 02/16/24 04:09 73 15 100 Mechanical Vent 30 02/16/24 04:00 30 02/16/24 03:30 92/58 L 02/16/24 03:30 64 13 100 02/16/24 03:00 66 12 99 02/16/24 03:00 91/54 L Mechanical Vent 30 02/16/24 02:30 100/61 Mechanical Vent 30 02/16/24 02:30 64 12 100 02/16/24 02:12 64 13 100 02/16/24 01:03 74 18 100 Mechanical Vent 02/16/24 00:30 99/62 L 02/16/24 00:30 68 22 100 02/16/24 00:00 100/66 02/16/24 00:00 72 22 100 Mechanical Vent 30 02/16/24 00:00 30 02/15/24 23:16 78 14 98 30 02/15/24 23:00 74 19 99 02/15/24 23:00 101/59 L 02/15/24 22:03 76 15 99 02/15/24 21:30 75 18 96 Mechanical Vent 30 02/15/24 21:30 113/68 02/15/24 21:09 75 16 97 02/15/24 20:30 72 02/15/24 20:30 Mechanical Vent 30 Critical Care Results & Data Vital Signs (Past 12 Hours) Vital Signs Temp Pulse Resp BP Pulse Ox O2 Del Method FiO2 02/16/24 05:09 36.6 C 66 15 95/62 L 99 Mechanical Vent 30 02/16/24 05:03 62 15 100 02/16/24 04:33 73 15 100 02/16/24 04:12 64 14 100 30 02/16/24 04:09 73 15 100 Mechanical Vent 30 02/16/24 04:00 30 02/16/24 03:30 92/58 L 02/16/24 03:30 64 13 100 02/16/24 03:00 66 12 99 02/16/24 03:00 91/54 L Mechanical Vent 30 02/16/24 02:30 100/61 Mechanical Vent 30 02/16/24 02:30 64 12 100 02/16/24 02:12 64 13 100 02/16/24 01:03 74 18 100 Mechanical Vent 02/16/24 00:30 99/62 L 02/16/24 00:30 68 22 100 02/16/24 00:00 100/66 02/16/24 00:00 72 22 100 Mechanical Vent 02/16/24 00:00 30 02/15/24 23:16 78 14 98 30 02/15/24 23:00 74 19 99 02/15/24 23:00 101/59 L 02/15/24 22:03 76 15 99 02/15/24 21:30 75 18 96 Mechanical Vent 30 02/15/24 21:30 113/68 02/15/24 21:09 75 16 97 02/15/24 20:30 72 02/15/24 20:30 Mechanical Vent 30 Lab & Micro Results (Past 24 Hours) No Data to Display No Data to Display No Data to Display I & O Totals 24 Hours 02/15/24 02/16/24 02/17/24 06:59 06:59 06:59 Intake Total 1502.683 / 1502.683 150 / 150 Output Total 150 / 150 1200 / 1200 Balance 1352.683 / 1352.683 -1050 / -1050 Cumulative 02/05/24 20:21 thru 02/16/24 06:30 Intake Total 32484.722 Output Total 90466 Balance 40960.722 RT Ventilator Mngmt (Last Documented) Ventilator Ordered Settings Ventilator Support Mode Assist Control 02/16/24 04:12 Respiratory Rate 15 02/16/24 05:09 Ventilator Tidal Volume 370 02/16/24 04:12 Setting Minute Ventilation 4.8 02/16/24 04:12 Ventilator Positive Pressure 7 02/13/24 16:00 Support Setting Positive End Expiratory 8 02/16/24 04:12 Pressure Fraction of Inspired Oxygen 30 02/16/24 05:09 Peak Inspiratory Flow 37 02/13/24 16:19 Machine Comment FiO2 titrated back down to 30% at 02/15/24 14:55 this time. Ventilator - PT Measurements Respiratory Rate 15 Exhaled Tidal Volume 370 Minute Ventilation 4.8 Peak Inspiratory Airway 17 Pressure Plateau Pressure 14.7 Respiratory Cycle Inspiratory: 1:4.9 Expiratory Ratio Inspiratory Phase Time 0.8 End-Tidal CO2 40 Static Lung Compliance 55.22 Dynamic Lung Compliance 41.11 Normal Static Lung Compliance 48.00 Patient Measurements Comment RT assisted Dr. Cano w/ trach change at this time. Dr. Cano placed new size 8.0 Shiley Flex in patient. During exchange, stoma appeared intact and asymptomatic. Post-procedure, B/S were auscultated equal bilaterally and patient had equal chest rise. After trach change, trach care was completed. Pt tolerated well. Coding Level of Care Code 86254 SUB INP/OBS CARE 3/50MIN Diagnoses Acute hypoxemic respiratory failure J96.01 GERD (gastroesophageal reflux disease) K21.9 ALS (amyotrophic lateral sclerosis) G12.21 Aspiration into respiratory tract T17.908A Pneumonia J18.9 History of pulmonary embolism Z86.711
--- NOTE | 2024-02-16 10:49 | Hospitalist Progress Note ---
Date of Service February 16, 2024 Assessment & Plan (1) Aspiration pneumonia: (2) Weakness generalized: Plan 48-year-old male with past medical history significant for ALS, orthostatic hypotension, irritable bowel syndrome, GERD, attention deficit disorder without hyperactivity, history of DVT and PE, depression with anxiety, wheelchair-bound at baseline presenting with shortness of breath for the last few days. Acute Hypoxic respiratory Failure-status post tracheostomy on 02/08/2024 with a change of tracheostomy tube on 02/15/2024 Severe sepsis with septic shock POA RLL collapse Aspiration Pneumonia Pt presenting with SOB CTA chest on admission showed collapse of majority of right lower lobe with concern for pneumonia MRSA nares negative Patient was intubated, on mechanical ventilation in the ICU Underwent bronchoscopy-bronchial washing showed many polys and few gram positive cocci in the culture-negative, fungal culture preliminary Rosalba albicans Unable to be extubated in setting of progressive ALS (see below), s/p tracheostomy on 02/07 Management of tracheostomy as per in urology surgeon-will have the tube changed tomorrow Clinically much better and awaiting LTAC placement in [place] Septic shock Also in septic shock, had hemodynamic support with vasopressors, was weaned. Currently on midodrine and IV hydrocortisone for BP support Goals of Care discussion- pt and desire full code status, tracheostomy, PEG Remains critical but stable Continue on Zosyn; follow-up on cultures-negative so far Remains hemodynamically stable without any fever Completed 7 days course of antibiotic for aspiration pneumonia and sepsis Will continue midodrine for low blood pressure Lower Extremity discoloration Asymptomatic Arterial Doppler with patent arteries on right, pt deferred on left extremity imaging. ALS- quadriplegia in the setting of ALS and nonambulatory status On BiPAP while sleeping at home Goals of Care discussion as above -s/p tracheostomy on 02/07 -PEG tube to be placed by GI unsuccessful, surgery consulted for placement -per Surgery, not a surgical candidate while on pressors -s/p PEG placement by general Surgery on 02/12 Started on PEG tube feeding-has been tolerating well Hx of DVT and PE on Eliquis, currently on hold for procedures History of attention deficit disorder without hyperactivity Depression with anxiety continue home meds Appreciate psychiatric input and recommendation and will continue medications as per psychiatric recommendation GERD on omeprazole Neuropathy On gabapentin DVT prophylaxis: Eliquis currently on hold for procedure Diet: NG Tube feeds, plan for PEG placement Disposition: currently in ICU, plan for LTAC Will be discharged to LTAC facility today Admission and Anticipated Discharge Date Admission Date: February 06, 2024 Subjective 02/14/2024 The patient was seen and examined in ICU He has been complaining of back pain and renal angles Has moderate shortness of breath at rest with profuse secretions Denies any chest pain and/or palpitation 02/15/2024 The patient was seen and examined in ICU in presence of the He has been feeling much better Decreasing shortness of breath, decreasing secretions, decreasing pain Remains hemodynamically stable 02/16/2024 The patient was seen and examined in ICU He has been stable and is off pressors Blood pressure remains the lower side Does not have any acute distress at rest Review of Systems Review of Systems: Other (Status post tracheostomy) Physical Exam Physical Exam: Lying in bed with acute distress due to shortness of breath and pain Constitutional: + ill appearing and average body habitus Eyes: PERRL, conjunctivae normal, anicteric sclerae ENMT: external ear and nose normal, oropharynx normal Neck: trachea midline, no thyromegaly (Tracheotomy tube in place) Respiratory: + respiratory distress Auscultation: + diminished lung sounds and + crackles (Bibasilar crackles and transmitted sounds) Cardiovascular: Rate/Rhythm: regular rate and regular rhythm; not tachycardic Heart Sounds: normal S1 and normal S2; no murmur Extremities: + edema (1+ edema bilaterally) Gastrointestinal (Abdomen): Inspection/Auscultation: normal bowel sounds; abdomen not distended Percussion/Palpation: abdomen soft; abdomen nontender Musculoskeletal: No acute arthritis involving any of the joint Neurologic: Alert and awake. Nonverbal with tracheostomy status, quadriplegia from ALS Lymphatic: no cervical or axillary lymphadenopathy Results & Data Results & Data Vital Signs (Past 12 Hours) Vital Signs Temp Pulse Resp BP Pulse Ox O2 Del Method FiO2 02/16/24 10:11 77 17 93 30 02/16/24 05:09 36.6 C 66 15 95/62 L 99 Mechanical Vent 30 02/16/24 05:03 62 15 100 02/16/24 04:33 73 15 100 02/16/24 04:12 64 14 100 30 02/16/24 04:09 73 15 100 Mechanical Vent 30 02/16/24 04:00 30 02/16/24 03:30 92/58 L 02/16/24 03:30 64 13 100 02/16/24 03:00 66 12 99 02/16/24 03:00 91/54 L Mechanical Vent 30 02/16/24 02:30 100/61 Mechanical Vent 30 02/16/24 02:30 64 12 100 02/16/24 02:12 64 13 100 02/16/24 01:03 74 18 100 Mechanical Vent 30 02/16/24 00:30 99/62 L 02/16/24 00:30 68 22 100 02/16/24 00:00 100/66 02/16/24 00:00 72 22 100 Mechanical Vent 30 02/16/24 00:00 30 02/15/24 23:16 78 14 98 30 02/15/24 23:00 74 19 99 02/15/24 23:00 101/59 L Medications Administered Current Inpatient Medications Albuterol (Albut/Ipratrop 3mg/0.5mg Neb 3 Ml Vial) 3 ml INH Q6H PRN; Protocol PRN Reason: WHEEZING OR SOB Stop: 03/07/24 03:12 Apixaban (Apixaban 5 Mg Tablet) 5 mg PO BID [facility] Stop: 03/15/24 20:59 Last Admin: 02/16/24 07:46 Dose: 5 mg Banana Based Medical Food (Banatrol Tf 60 Ml Liquid Pkt) 60 ml PEG BID [facility] Stop: 03/16/24 10:29 Last Admin: 02/16/24 07:47 Dose: 60 ml Clonazepam (Clonazepam 0.25 Mg Od Tab) 0.5 mg PO HS [facility] Stop: 03/08/24 20:59 Last Admin: 02/15/24 22:00 Dose: 0.5 mg Enteral Nutritional Formula (Peptamen 1.5 Harman 1,000 Ml Bag) 1,000 ml OG .See Protocol [facility]; Protocol Stop: 03/07/24 16:59 Last Admin: 02/16/24 01:08 Dose: 1,000 ml Escitalopram Oxalate (Escitalopram Oxalate Oral Soln 5 Mg/5 Ml) 30 mg NG QAM [facility] Stop: 03/16/24 08:59 Last Admin: 02/16/24 07:46 Dose: 30 mg Gabapentin (Gabapentin 250 Mg/5 Ml 470 Ml Btl) 300 mg PO TID [facility] Stop: 03/07/24 13:59 Last Admin: 02/16/24 07:50 Dose: 300 mg Acetaminophen (Ofirmev) 1,000 mg in 100 mls @ 400 mls/hr IV Q8H PRN PRN Reason: Pain Stop: 02/16/24 19:18 Last Infusion: 02/14/24 18:54 Dose: Infused Lansoprazole (Lansoprazole 30 Mg Soltab) 30 mg OG QAM [facility] Stop: 03/08/24 08:59 Last Admin: 02/16/24 07:46 Dose: 30 mg Lorazepam (Lorazepam 0.5 Mg Tab) 0.5 mg PO Q8H PRN PRN Reason: Anxiety Stop: 03/15/24 14:49 Last Admin: 02/16/24 00:09 Dose: 0.5 mg Midodrine (Midodrine Hcl 10 Mg Tab) 10 mg PO TID@0800,1200,1700 [facility] Stop: 03/15/24 09:59 Last Admin: 02/16/24 07:46 Dose: 10 mg Mirtazapine (Mirtazapine Tab 15 Mg Tab) 7.5 mg PO HS [facility] Stop: 03/15/24 20:59 Last Admin: 02/15/24 22:00 Dose: 7.5 mg Miscellaneous (Remove Transderm-Scop Patch) 1 each N/A Q72H [facility] Stop: 03/11/24 08:58 Last Admin: 02/16/24 07:47 Dose: 1 each Olanzapine (Olanzapine Zydis 5 Mg Orally Dis. Tab) 5 mg PO QAM [facility] Stop: 03/15/24 09:14 Last Admin: 02/16/24 07:47 Dose: 5 mg Ondansetron HCl (Ondansetron Inj 2 Mg/Ml 2 Ml Vial) 4 mg IV Q6H PRN PRN Reason: Nausea Stop: 03/07/24 03:12 Last Admin: 02/13/24 16:49 Dose: 4 mg Oxycodone HCl (Oxycodone Hcl Soln 5 Mg/5 Ml Udc) 5 mg NG Q6H PRN PRN Reason: Moderate Pain (Scale 4, 5, 6) Stop: 02/23/24 11:59 Last Admin: 02/16/24 02:23 Dose: 5 mg Oxycodone HCl (Oxycodone Hcl Soln 5 Mg/5 Ml Udc) 10 mg PO Q8H PRN PRN Reason: Pain Stop: 02/28/24 15:07 Last Admin: 02/16/24 07:45 Dose: 10 mg Scopolamine (Scopolamine 1 Mg/72 Hr Tdsy Patch) 1 patch TD Q3D [facility] Stop: 03/08/24 08:59 Last Admin: 02/16/24 07:48 Dose: 1 patch Sterile Water (Tube Feeding Water Flush) 175 ml OG Q4H [facility] Stop: 03/07/24 16:59 Last Admin: 02/16/24 07:48 Dose: 175 ml
--- NOTE | 2024-02-16 12:24 | Discharge Summary ---
Date of Service February 16, 2024 Admission HPI Per Admitting Provider 48-year-old male with past medical history significant for orthostatic hypotension, irritable bowel syndrome, GERD, ALS, attention deficit disorder without hyperactivity, history of DVT and PE, depression with anxiety who lives at home with his and wheelchair-bound comes in because of shortness of breath going on for last few days. States having a lot of mucus. Denies any fevers. States eats regular food. Denies any headache. No runny nose or sore throat. Patient is somewhat struggling to answer the questions but answering appropriately. Denies chest pain currently. Denies nausea. Denies abdominal pain. States micturating okay. Moving bowels okay. Patient was hypoxic to EMS and Currently requiring 5 L oxygen. Past medical history. As mentioned above. Past surgical history. Circumcision. Graft rib cartilage to face. Knee arthroscopy. Rhinoplasty. Appendectomy. Revision of ulnar nerve at elbow left side. Vasectomy. Social history. . No smoking. Alcohol rare. No drug use Family history. Father had blood clot. Depression. Mother had hypertension. Maternal grandfather had mouth cancer. Stroke. Maternal grandmother had hypertension. Paternal grandfather had AR. Admission Exam Per Admitting Provider Physical Exam: General- Not in acute distress Head- atraumatic Eyes- PERRL ENT- oropharynx dry Lungs- clear to auscultation no wheezing or crackles. Heart- regular rhythm; no murmur, no gallop. Abdomen- sluggish bowel sounds, soft, nontender, no distension. Extremities- mild pretibial edema, b/l feet cold and mild bluish coloration seen. Feet non tender. Neuro- alert, oriented x 3; PERRL, no facial palsy; no dysarthria; not able to move extremities. Principal Diagnosis Acute hypoxic respiratory failure status post tracheostomy, ALS with quadriplegia, aspiration pneumonia, anxiety Discharge Exam Lying in bed with acute distress due to shortness of breath and pain Constitutional + ill appearing and average body habitus Eyes PERRL, conjunctivae normal, anicteric sclerae ENMT external ear and nose normal, oropharynx normal Neck trachea midline, no thyromegaly (Tracheotomy tube in place) Respiratory + respiratory distress Auscultation: + diminished lung sounds and + crackles (Bibasilar crackles and transmitted sounds) Cardiovascular Rate/Rhythm: regular rate and regular rhythm; not tachycardic Heart Sounds: normal S1 and normal S2; no murmur Extremities: + edema (1+ edema bilaterally) Gastrointestinal (Abdomen) Inspection/Auscultation: normal bowel sounds; abdomen not distended Percussion/Palpation: abdomen soft; abdomen nontender Lymphatic no cervical or axillary lymphadenopathy Discharge Data Allergies Allergy/AdvReac Type Severity Reaction Status Date / Time tramadol AdvReac Unknown GI Verified 02/05/24 22:52 discomfort Consultations 02/05/24 22:54 ED Decision to Admit Stat 02/06/24 08:00 Consult Pulmonology Routine 02/06/24 12:47 Consult Palliative Care Routine 02/08/24 09:32 Consult Gastroenterology Routine 02/09/24 10:17 Consult General Surgery Routine 02/14/24 09:12 Consult Psychiatry Routine 02/16/24 11:11 Burn CD for patient Stat Procedures Performed Operation Date: 02/13/24 07:00 Actual Procedures p Esophagogastroduodenoscopy, Endoscopic percutaneous endoscopic gastrostomy placement - Saul Pitts, Ordered Studies 02/05/24 21:36 CT for pulmonary embolism PE [CT angio chest PE protocol] Stat 02/06/24 03:24 US doppler leg [US arterial duplex LE BI] Urgent 02/14/24 12:24 US venous doppler UE LT Routine Hospital Course (1) Aspiration pneumonia: (2) Weakness generalized: Plan 48-year-old male with past medical history significant for ALS, orthostatic hypotension, irritable bowel syndrome, GERD, attention deficit disorder without hyperactivity, history of DVT and PE, depression with anxiety, wheelchair-bound at baseline presenting with shortness of breath for the last few days. Acute Hypoxic respiratory Failure-status post tracheostomy on 02/08/2024 with a change of tracheostomy tube on 02/15/2024 Severe sepsis with septic shock POA RLL collapse Aspiration Pneumonia Pt presenting with SOB CTA chest on admission showed collapse of majority of right lower lobe with concern for pneumonia MRSA nares negative Patient was intubated, on mechanical ventilation in the ICU Underwent bronchoscopy-bronchial washing showed many polys and few gram positive cocci in the culture-negative, fungal culture preliminary Rosalba albicans Unable to be extubated in setting of progressive ALS (see below), s/p tracheostomy on 02/07 Management of tracheostomy as per in drywall installer-will have the tube changed tomorrow Clinically much better and awaiting LTAC placement in [place] Septic shock Also in septic shock, had hemodynamic support with vasopressors, was weaned. Currently on midodrine and IV hydrocortisone for BP support Goals of Care discussion- pt and desire full code status, tracheostomy, PEG Remains critical but stable Continue on Zosyn; follow-up on cultures-negative so far Remains hemodynamically stable without any fever Completed 7 days course of antibiotic for aspiration pneumonia and sepsis Will continue midodrine for low blood pressure Lower Extremity discoloration Asymptomatic Arterial Doppler with patent arteries on right, pt deferred on left extremity imaging. ALS- quadriplegia in the setting of ALS and nonambulatory status On BiPAP while sleeping at home Goals of Care discussion as above -s/p tracheostomy on 02/07 -PEG tube to be placed by GI unsuccessful, surgery consulted for placement -per Surgery, not a surgical candidate while on pressors -s/p PEG placement by general Surgery on 02/12 Started on PEG tube feeding-has been tolerating well Hx of DVT and PE on Eliquis, currently on hold for procedures History of attention deficit disorder without hyperactivity Depression with anxiety continue home meds Appreciate psychiatric input and recommendation and will continue medications as per psychiatric recommendation GERD on omeprazole Neuropathy On gabapentin DVT prophylaxis: Eliquis currently on hold for procedure Diet: NG Tube feeds, plan for PEG placement Disposition: currently in ICU, plan for LTAC Will be discharged to LTAC facility today Total Time Total Time Spent Total Time Spent (In Minutes): 45 minutes Discharge Plan Discharge Items Patient Disposition: Transfer to LTAC Reason For Visit: SOB, PNEUMONIA Discharge Diagnosis: Acute hypoxic respiratory failure status post tracheostomy, ALS with quadriplegia, aspiration pneumonia, anxiety Activity: As commented below Activity Comment: Needs assistance with ADL S Non-emergency contact: Primary Care Provider Call non-emergency contact if: you have any medication questions and your symptoms worsen Follow-up/Referrals: Saul Pitts DO [Surgeon] - Keith Cross MD [Primary Care Provider] - Diet: Other - See Diet Comment Diet Comment: PEG tube feeding Addtl Attending Provider Instructions: Please take precautions to avoid falls Tracheostomy care as per respiratory therapist Will need assistance with ADL's Below are the current in-hospital medications that he was receiving: He has been getting his medications through the PEG( though mentioned PO) Current Inpatient Medications Albuterol (Albut/Ipratrop 3mg/0.5mg Neb 3 Ml Vial) 3 ml INH Q6H PRN; Protocol PRN Reason: WHEEZING OR SOB Stop: 03/07/24 03:12 Apixaban (Apixaban 5 Mg Tablet) 5 mg PO BID [facility] Stop: 03/15/24 20:59 Last Admin: 02/16/24 07:46 Dose: 5 mg Banana Based Medical Food (Banatrol Tf 60 Ml Liquid Pkt) 60 ml PEG BID [facility] Stop: 03/16/24 10:29 Last Admin: 02/16/24 07:47 Dose: 60 ml Clonazepam (Clonazepam 0.25 Mg Od Tab) 0.5 mg PO HS [facility] Stop: 03/08/24 20:59 Last Admin: 02/15/24 22:00 Dose: 0.5 mg Enteral Nutritional Formula (Peptamen 1.5 Harman 1,000 Ml Bag) 1,000 ml OG .See Protocol [facility]; Protocol Stop: 03/07/24 16:59 Last Admin: 02/16/24 01:08 Dose: 1,000 ml Escitalopram Oxalate (Escitalopram Oxalate Oral Soln 5 Mg/5 Ml) 30 mg NG QAM [facility] Stop: 03/16/24 08:59 Last Admin: 02/16/24 07:46 Dose: 30 mg Gabapentin (Gabapentin 250 Mg/5 Ml 470 Ml Btl) 300 mg PO TID [facility] Stop: 03/07/24 13:59 Last Admin: 02/16/24 07:50 Dose: 300 mg Acetaminophen (Ofirmev) 1,000 mg in 100 mls @ 400 mls/hr IV Q8H PRN PRN Reason: Pain Stop: 02/16/24 19:18 Last Infusion: 02/14/24 18:54 Dose: Infused Lansoprazole (Lansoprazole 30 Mg Soltab) 30 mg OG QAM [facility] Stop: 03/08/24 08:59 Last Admin: 02/16/24 07:46 Dose: 30 mg Lorazepam (Lorazepam 0.5 Mg Tab) 0.5 mg PO Q8H PRN PRN Reason: Anxiety Stop: 03/15/24 14:49 Last Admin: 02/16/24 00:09 Dose: 0.5 mg Midodrine (Midodrine Hcl 10 Mg Tab) 10 mg PO TID@0800,1200,1700 [facility] Stop: 03/15/24 09:59 Last Admin: 02/16/24 07:46 Dose: 10 mg Mirtazapine (Mirtazapine Tab 15 Mg Tab) 7.5 mg PO HS [facility] Stop: 03/15/24 20:59 Last Admin: 02/15/24 22:00 Dose: 7.5 mg Miscellaneous (Remove Transderm-Scop Patch) 1 each N/A Q72H [facility] Stop: 03/11/24 08:58 Last Admin: 02/16/24 07:47 Dose: 1 each Olanzapine (Olanzapine Zydis 5 Mg Orally Dis. Tab) 5 mg PO QAM [facility] Stop: 03/15/24 09:14 Last Admin: 02/16/24 07:47 Dose: 5 mg Ondansetron HCl (Ondansetron Inj 2 Mg/Ml 2 Ml Vial) 4 mg IV Q6H PRN PRN Reason: Nausea Stop: 03/07/24 03:12 Last Admin: 02/13/24 16:49 Dose: 4 mg Oxycodone HCl (Oxycodone Hcl Soln 5 Mg/5 Ml Udc) 5 mg NG Q6H PRN PRN Reason: Moderate Pain (Scale 4, 5, 6) Stop: 02/23/24 11:59 Last Admin: 02/16/24 02:23 Dose: 5 mg Oxycodone HCl (Oxycodone Hcl Soln 5 Mg/5 Ml Udc) 10 mg PO Q8H PRN PRN Reason: Pain Stop: 02/28/24 15:07 Last Admin: 02/16/24 07:45 Dose: 10 mg Scopolamine (Scopolamine 1 Mg/72 Hr Tdsy Patch) 1 patch TD Q3D [facility] Stop: 03/08/24 08:59 Last Admin: 02/16/24 07:48 Dose: 1 patch Sterile Water (Tube Feeding Water Flush) 175 ml OG Q4H [facility] Stop: 03/07/24 16:59 Last Admin: 02/16/24 07:48 Dose: 175 ml Addtl Real Estate Administrator Provider Instructions: Assessment and plan by the drywall installer: Assessment: Pt is a 48 yo male with a hx of ALS who is wheelchair bound with quadriplegia, IBS, GERD, ADD, anxiety and depression, and hx DVT 24 hour events: No major events. Neurologic -ALS. -Postop day 8 patient status post tracheostomy 02/08/2024 -Tracheostomy changed 02/15/2024 Anxiety: -Ativan: Transition from IV to enteral on 02/13 -Increased Lexapro from 20 mg every morning to 30 per psychiatry recommendation on 02/13 -Decrease Remeron from 15 to 7.5 on 02/13 -Adjunctive olanzapine 5 mg every morning on 02/13 -Clonazepam half milligram nightly: Home medication Pain: -Transition from OG oxycodone as needed for pain Neurontin 300 mg 3 times daily: Home medication Cardiac --Shock: Resolved last echo in our system is 2019 with EF 50-55% with right ventricular and IVC dilation. US negative for DVT and CTA neg for PE. Takes eliquis BID for hx PE/DVT diagnosed February 2020 -Hypotension/dysautonomia: Midodrine 10 mg 3 times daily Respiratory -- Acute respiratory failure with hypoxia: Improving Has hx of ALS. On admission, CXR showed RLL opacity and chest Treating right lower lobe pneumonia. Status post bronchoscopy x 2 with clearance of mucous. -Appears to be entering chronic respiratory failure secondary to neuromuscular disease Reviewed ventilator settings, decrease rate to 12 SIMV mode -CPAP trials today Bron culture negative for any bacteria. Is growing Rosalba which is most likely contaminant Gastrointestinal Postop day 3 PEG tube placement by general surgery Renal/electrolytes No major issues. Replace electrolytes as needed. Genitourinary No concerns at this time, discontinue Jean Baptiste catheter transition to condom cath -Patient previously used diapers Endocrine Hydrocortisone for relative adrenal insufficiency discontinued today Hematologic -- Normocytic anemia Superficial thrombophlebitis diagnosed 02/14/2024 History of VTE and lower extremity in February 2020. -Patient became wheelchair-bound in August 2020, family reports he is essentially paraplegic since that time. -Studies indicate increased risk of VTE in the setting of ALS however it is not clear whether that increased risk continues with time from initial diagnosis/chronic immobility -Given the patient has superficial thrombophlebitis I feel it is prudent to continue anticoagulation given there are no obvious contraindications of major bleeding or GI hemorrhage -Eliquis 5 mg twice daily Infectious disease Completed 7 days of effective therapy for aspiration pneumonia --Prophylaxis VTE: Lovenox: Eliquis GI: Lansoprazole: Not home med, however, on systemic anticoagulation, recent PEG tube placement, and now 100% vent dependency: Would continue at this time, could consider discontinuation in the near future Lines: Peripheral Diet: Tube feeds can transition to bolus feedings Disposition: Stable for LTAC disposition Pending Studies at Discharge: No Stand-Alone Forms: My [facility] Skilled Items Patient informed of condition?: Yes DNR: No Discharge Level of Care: Other Communicable Disease: No Discharge Prognosis: Stable Lines: Peripheral IV Urinary Catheter: Yes Medications and DC Order Prescriptions: Continued omeprazole 20 mg capsule,delayed release(DR/EC) 20 mg PO QAM escitalopram oxalate 20 mg tablet 20 mg PO QAM ipratropium-albuterol 0.5 mg-3 mg(2.5 mg base)/3 mL solution for nebulization 3 ml INHALATION Q6H PRN (Reason: WHEEZING OR SOB) ondansetron 4 mg tablet,disintegrating 4 mg PO Q6H PRN (Reason: nausea and vomiting) Qty: 14 0RF Eliquis 5 mg tablet 5 mg PO BID ergocalciferol (vitamin D2) 1,250 mcg (50,000 unit) Capsule 50,000 unit PO Q7D Qty: 7 0RF Rx Instructions: Sun gabapentin 300 mg capsule 300 mg PO TID mirtazapine 15 mg tablet 15 mg PO HS scopolamine base 1 mg over 3 days patch 3 day 1 patch topical [id number] clonazepam 0.5 mg tablet 0.25 - 0.5 mg PO HS dextroamphetamine-amphetamine 15 mg tablet 15 mg PO TID Discharge Orders: Discharge Order (Routine); Ordered 02/16/24 Ordered By: Samuel Piedra Admission Data Admit Date/Time: 02/06/24 01:56 Attending Provider: Samuel Piedra Admit Provider: Brien Lewis Primary Care Provider: Keith Cross Other Providers: Brien Lewis; Rodrick Burroughs; Elaina Elizalde; Arnulfo Wang; Shimon Solorzano; Dyan Rivas; Celeste Cohen; Mimi Vazquez; Dinah Montenegro; Kalpana Loya; Chris Burr; Ankit Montana; Ethel Galo; Devin Grace; Kellie Davis; Elvira Anthony; Andressa Cohen; Peggy Brooks; Kathy Morales; Trini Gates; Evelio Diallo; Cong Martell; Kandace Posadas; Ernie Rodriguez Jr; Riley Hutchinson; Darryl Balderrama; Martin Martinez; Saul Pitts; Ernie Esqueda; Frances Maldonado; Brandon Baltazar; Jacinto Leal; Ozzy Springer; Leandro Quesada; Katherine Louis; Ernie Harvey; Lee Reed Jr; Annabel Matthew; Yen Betts; Jerrell Pena Other Interventions: Discharge Summary Assessment (RN) Last Done: 02/16/24 12:12
== END 2024-02-16 13:15 | DRG 4 ==
LOC: ED 20:28 → 2E 02-06 01:56 → SUATTDRO 02-06 01:56 → 2E 02-06 03:11 → 1E 02-06 09:07
DX: G12.21 Amyotrophic lateral sclerosis; J98.11 Atelectasis; J69.0 Pneumonitis due to inhalation of food and vomit; K58.9 Irritable bowel syndrome, unspecified; I80.8 Phlebitis and thrombophlebitis of other sites; Z86.16 Personal history of COVID-19; Z79.01 Long term (current) use of anticoagulants; F90.9 Attention-deficit hyperactivity disorder, unspecified type; Z88.5 Allergy status to narcotic agent; Z99.3 Dependence on wheelchair; G62.9 Polyneuropathy, unspecified; Z86.711 Personal history of pulmonary embolism; F41.9 Anxiety disorder, unspecified; Z86.718 Personal history of other venous thrombosis and embolism; J96.01 Acute respiratory failure with hypoxia; G82.50 Quadriplegia, unspecified; E87.29 Other acidosis; D64.9 Anemia, unspecified; R65.21 Severe sepsis with septic shock; E87.1 Hypo-osmolality and hyponatremia; A41.9 Sepsis, unspecified organism; F32.9 Major depressive disorder, single episode, unspecified; J96.02 Acute respiratory failure with hypercapnia

== ENCOUNTER 2024-03-27 23:10 | Inpatient (IN) ==
--- NOTE | 2024-03-27 23:31 | Emergency Department Note ---
History of Present Illness General Chief complaint: Respiratory Problems Stated complaint: TRACH, CAREGIVER WORRIED ABOUT DESATING Time Seen by Provider: 03/27/24 23:13 History of Present Illness This 48-year-old gentleman with past medical history significant for orthostatic hypotension, irritable bowel syndrome, GERD, ALS, attention deficit disorder without hyperactivity, history of DVT and PE, depression trached who was just discharged home today from long-term care facility presents the ER complaining of chest pain that has not resolved. is concerned as she is worried about not having all the proper equipment and no home health nurse until tomorrow. EMS was at their house twice. EMS states vitals are stable. Patient has no chest pain now. Patient denies fevers, abdominal pain, or any other medical complaints. Home Medications Medication Instructions Recorded Confirmed Type apixaban 5 mg tablet (Eliquis) 5 mg feeding tube BID 11/19/20 03/28/24 History ipratropium 0.5 mg-albuterol 3 mg 3 ml inhalation BID 07/25/23 03/28/24 History (2.5 mg base)/3 mL nebulization soln gabapentin 300 mg capsule 600 mg feeding tube TID 11/14/23 03/28/24 History clonazepam 0.5 mg tablet 0.5 mg feeding tube TID PRN Anxiety 02/05/24 03/28/24 History scopolamine base 1 mg over 3 days 1 patch topical [id number] 02/05/24 03/28/24 History transdermal patch Pantoprazole/Sodium Bicarb 40 mg feeding tube QAM 03/28/24 03/28/24 History albuterol sulfate 2.5 mg/3 mL 2.5 mg inhalation Q6H PRN 03/28/24 03/28/24 History (0.083 %) solution for nebulization Shortness Of Breath Or Wheezing atropine 1 % eye drops 1 drp buccal TID 03/28/24 03/28/24 History clonazepam 1 mg tablet 0.75 mg feeding tube TID 03/28/24 03/28/24 History escitalopram oxalate 10 mg tablet 30 mg feeding tube QAM 03/28/24 03/28/24 History (Lexapro) fentanyl 25 mcg/hr transdermal 1 patch transdermal Q72H 03/28/24 03/28/24 History patch furosemide 20 mg tablet (Lasix) 20 mg feeding tube DAILY 03/28/24 03/28/24 History melatonin 3 mg tablet 3 mg feeding tube HS 03/28/24 03/28/24 History midodrine 10 mg tablet 10 mg PO TID 03/28/24 03/28/24 History mirtazapine 7.5 mg tablet 7.5 mg feeding tube HS 03/28/24 03/28/24 History olanzapine 5 mg tablet 5 mg feeding tube DAILY 03/28/24 03/28/24 History oxycodone 5 mg tablet 7.5 mg feeding tube Q4H PRN Pain, 03/28/24 03/28/24 History Moderate potassium bicarbonate-citric acid 25 meq feeding tube DAILY 03/28/24 03/28/24 History 25 mEq effervescent tablet Allergies Allergy/AdvReac Type Severity Reaction Status Date / Time tramadol AdvReac Intermediate GI Verified 03/27/24 23:50 discomfort Past Med/Surg History Problem List (Updated 03/28/24 @ 02:33 by Cathie Ponce PA-C) Anxiety Decreased oral intake Palliative care by specialist Advanced care planning/counseling discussion Weakness generalized Dyspnea and respiratory abnormalities Aspiration pneumonia (Acute) Acute hypercapnic respiratory failure Aspiration into respiratory tract Sepsis (Acute) Pneumonia (Acute) Pneumonia Acute hypoxemic respiratory failure (Acute) Vitamin D deficiency Neuropathy Sepsis Abdominal pain (Acute) Weakness (Acute) COVID-19 (Acute) COVID-19 Fatigue after COVID-19 vaccination (Acute) Pulmonary nodule Acute saddle pulmonary embolism Medical History Depression (11/28/12) Bronchitis (11/28/12) History of ventilator dependency Acute hypoxemic respiratory failure Acute dyspnea SBO (small bowel obstruction) History of pulmonary embolism ADD (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 GERD (gastroesophageal reflux disease) ALS (amyotrophic lateral sclerosis) Surgical History H/O esophagogastroduodenoscopy (02/13/24) Esophagogastroduodenoscopy, Endoscopic percutaneous endoscopic gastrostomy placement - aSul Pitts, DO Hx of tracheostomy History of vasectomy H/O rhinoplasty S/P left knee arthroscopy Family History Father Pulmonary embolism Mother Hypertension Social History Smoking Status: Never smoker Second Hand Exposure: No; Do You Dip or Chew Tobacco: No; Hx Alcohol Use: No Hx Substance Use: No Preferred Language: Armenian Communication Ability: Impaired Crew Dispatcher Required: No Beliefs That Will Affect Care: None marital status: Current Living Situation: Spouse current occupational status: employed Feels Safe at Home: Yes Assistive Devices: CPAP, Mechanical Lift, Scooter/Electric Scooter and Other Review of Systems A total of 10 systems reviewed and were otherwise negative Physical Exam Vital Signs Vital Signs - 24 hr 03/27/24 23:27 03/27/24 23:27 03/27/24 23:27 Temperature 36.9 C Temperature Source Oral Pulse Rate 101 H Pulse Rate from SpO2 Sensor Pulse Rhythm Respiratory Rate 18 Respiratory Effort / Characteristics Non-Labored Spontaneous Non-Labored Spontaneous Respiratory Depth Normal Normal Respiratory Pattern Regular Regular Blood Pressure Blood Pressure Mean Blood Pressure Position Lying Pulse Oximetry 99 Oxygen Delivery Method Trach Collar Ambu-Bag Ambu-Bag Oxygen Flow Rate 7 7 7 Sepsis Recent Fever Within 48 Hours No Sepsis New/Unexplained Change in Mental Status N/A Sepsis Action Taken by Nursing No Action Required 03/27/24 23:30 03/27/24 23:39 03/28/24 00:00 Temperature Temperature Source Pulse Rate 102 H 103 H 92 H Pulse Rate from SpO2 Sensor 92 H Pulse Rhythm Regular Respiratory Rate 20 18 Respiratory Effort / Characteristics Respiratory Depth Respiratory Pattern Blood Pressure 110/71 Blood Pressure Mean 82 Blood Pressure Position Pulse Oximetry 99 100 Oxygen Delivery Method Ambu-Bag Room Air Oxygen Flow Rate 7 Sepsis Recent Fever Within 48 Hours Sepsis New/Unexplained Change in Mental Status Sepsis Action Taken by Nursing 03/28/24 01:00 03/28/24 01:33 03/28/24 02:06 Temperature Temperature Source Pulse Rate 92 H 96 H 99 H Pulse Rate from SpO2 Sensor 92 H 97 H 99 H Pulse Rhythm Respiratory Rate 20 14 21 Respiratory Effort / Characteristics Respiratory Depth Respiratory Pattern Blood Pressure 89/69 L 125/81 109/70 Blood Pressure Mean 74 95 83 Blood Pressure Position Pulse Oximetry 93 99 97 Oxygen Delivery Method Trach Collar Trach Collar Trach Collar Oxygen Flow Rate 3 3 3 Sepsis Recent Fever Within 48 Hours Sepsis New/Unexplained Change in Mental Status Sepsis Action Taken by Nursing VITALS: Vitals are noted on the nurse's note and reviewed by myself. Vital signs stable. GENERAL: White male quadriplegic trached pulse ox 100%, in no acute distress, nondiaphoretic SKIN: Capillary reflex less than 2 seconds. HEENT: Normocephalic. PERRLA. EOMI. Nares patent. Mucous membranes moist. Neck is supple without nuchal rigidity. HEART: Regular rate and rhythm LUNGS: Clear to auscultation bilaterally without wheezes, rales or rhonchi. No retractions or accessory muscle use. ABDOMEN: Positive bowel sounds x 4. Normal tympanic percussion. Soft, PEG tube placed, nontender, without masses or organomegaly. Rangel sign negative. No guarding or rebound tenderness. no CVA tenderness MUSCULOSKELETAL: No gross musculoskeletal defects. NEURO: Patient was alert and oriented to person place and time. Course Administered Medications Sodium Chloride (Nss) 1,000 mls @ 999 mls/hr IV .Q1H1M ONE Stop: 03/28/24 02:54 Last Admin: 03/28/24 02:26 Dose: 999 mls/hr Documented By: АЛЕКСАНДР Vancomycin HCl 1,500 mg/ (Sodium Chloride) 530 mls @ 200 mls/hr IV NOW ONE Stop: 03/28/24 04:33 Last Admin: 03/28/24 02:26 Dose: 200 mls/hr Documented By: АЛЕКСАНДР Discontinued Medications Piperacillin Sod/Tazobactam Sod (Zosyn) 4.5 gm in 100 mls @ 200 mls/hr IV NOW ONE Stop: 03/28/24 01:13 Last Admin: 03/28/24 02:25 Dose: 200 mls/hr Documented By: АЛЕКСАНДР Ioversol (Optiray 320 125ml) 125 ml IV ONCE ONE Stop: 03/28/24 01:30 Last Admin: 03/28/24 01:29 Dose: 117 ml Documented By: LAMIN Lorazepam (Lorazepam 1 Mg/1 Ml Syr Ed Inj Use) 0.5 mg IV ONE STA Stop: 03/27/24 23:56 Last Admin: 03/28/24 00:01 Dose: 0.5 mg Documented By: АЛЕКСАНДР Medical Decision Making Medical Records Attestation: I reviewed the patient's medical records. Home Medications Current Medication List: was personally reviewed by me Laboratory Data Attestation: I reviewed the patient's lab results. 03/27/24 23:47 03/27/24 23:47 Lab Results 03/27/24 03/28/24 Range/Units 23:47 01:39 WBC 17.44 H (4.8-10.8) K/ul RBC 3.85 L (4.70-6.10) M/uL Hgb 10.5 L (14.0-18.0) g/dl Hct 33.9 L (42.0-52.0) % MCV 88.1 (80.0-100.0) fL MCH 27.3 (25.0-34.0) pg MCHC 31.0 L (32.0-36.0) g/dL RDW Std Deviation 45.1 (36.4-46.3) fL RDW Coeff of Hussain 14.0 (11.5-14.5) % Plt Count 297 (130-400) K/uL MPV 11.3 (9.4-12.4) fL Immature Gran % (Auto) 0.6 % Neut % (Auto) 93.2 % Lymph % (Auto) 2.4 % Hartley % (Auto) 3.6 % Eos % (Auto) 0.0 % Baso % (Auto) 0.2 % Neut # (Auto) 16.28 H (1.40-6.50) K/uL Lymph # (Auto) 0.41 L (1.20-3.40) K/uL Hartley # (Auto) 0.62 H (0.11-0.59) K/uL Eos # (Auto) 0.00 (0.00-0.50) K/uL Baso # (Auto) 0.03 (0.00-0.20) K/uL Immature Gran # (Auto) 0.10 (0.01-0.20) K/uL Sodium 136 (136-145) mmol/L Potassium 3.5 (3.5-5.1) mmol/L Chloride 96 L (98-107) mmol/L Carbon Dioxide 32 (21-32) mmol/L Anion Gap 8 (3-11) BUN 13 (6-23) mg/dl Creatinine < 0.20 L (0.6-1.4) mg/dl Est Cr Clr Drug Dosing 477.9 ml/min Est GFR ( Amer) > 150.0 ml/min Est GFR (Non-Af Amer) > 150.0 ml/min BUN/Creatinine Ratio TNP Glucose 146 H (70-99(Fasting)) mg/dl Lactate 0.8 (0.4-2.0) mmol/L Calcium 9.2 (8.6-10.3) mg/dl Total Bilirubin 0.5 (0.2-1.0) mg/dl AST 23 (13-39) U/L ALT 22 (7-52) U/L Alkaline Phosphatase 99 (34-104) U/L Troponin I High Sens 11.2 (0-20) pg/ml Total Protein 7.5 (6.0-8.3) gm/dl Albumin 3.5 (3.4-5.0) gm/dl Globulin 4.0 (2.5-4.0) gm/dl Albumin/Globulin Ratio 0.9 (0.9-2) Lipase 10 L (11-82) U/L Imaging Data Attestation: I personally reviewed and interpreted this imaging study as follows: Radiologist's Impression: Chest CTA 03/28/24 00:28 Exam(s): CTA CHEST IV Amt: 118 ML OPTIRAY 320 EXAM: CT Angiography Chest With Intravenous Contrast CLINICAL HISTORY: Reason for exam: PE, ALS, SOB. TECHNIQUE: Axial computed tomographic angiography images of the chest with intravenous contrast. CTDI is 20.33 mGy and DLP is 625.93 mGy-cm. Automated exposure control was utilized for the study. A dose lowering technique was utilized adhering to the principles of ALARA. MIP reconstructed images were created and reviewed. COMPARISON: No relevant prior studies available. FINDINGS: Pulmonary arteries: Unremarkable. No acute pulmonary embolism. Aorta: No acute findings. No thoracic aortic aneurysm. Lungs: Extensive bilateral dependent aspiration pneumonia, LEFT greater than RIGHT. Bilateral para-pneumonic effusions. No mass. Pleural space: Unremarkable. No significant effusion. No pneumothorax. Heart: Unremarkable. No cardiomegaly. No significant pericardial effusion. No evidence of RV dysfunction. Bones/joints: No acute fracture. No dislocation. Soft tissues: Gynecomastia. Lymph nodes: Unremarkable. No enlarged lymph nodes. Liver: Hepatic steatosis. Tubes, lines and devices: Midline tracheostomy tube. IMPRESSION: 1. No acute pulmonary embolism. 2. Extensive bilateral dependent aspiration pneumonia, LEFT greater than RIGHT. Bilateral para-pneumonic effusions. Electronically signed by: Chriss Barkley MD 03/28/24 01:43 AM MDM Narrative Prior records/ancillary studies reviewed. Triage Nursing notes reviewed. Additional history obtained from EMS and family. The patient's history was concerning for chest pain. Differential diagnosis: Etiologies such as cardiac ischemia, aortic dissection, pulmonary embolism, pneumonia, pneumothorax, musculoskeletal, infections, pericarditis, myocarditis, esophageal rupture, gastrointestinal, as well as others were entertained. Physical examination: As above. ER treatment provided: An order was placed for continuous cardiac monitoring. The monitor shows a rate of 60-100 with a sinus rhythm per my interpretation. Patient was given Zosyn and vancomycin On reassessment the patient felt better. Diagnostic interpretation by me: The electrocardiogram was negative for pathologic change. Ordered for chest pain I think arrhythmia is unlikely. EKG shows normal sinus rhythm with no interval abnormalities such as QT prolongation or WPW. There are no findings to suggest Brugada syndrome. Cardiac monitoring in the emergency department reveals no tachycardic or bradycardic dysrhythmia. Hypertrophic cardiomyopathy was considered but there are no clear historical elements pointing toward this. EKG is not suggestive. The QRS voltage is not extremely large and there are no suggestive Q waves. The labs Independently Interpreted by myself revealed leukocytosis, negative lactic, blood cultures pending Imaging studies: Chest x-ray with pneumonia per my independent interpretation, concerning for aspiration CTA as above HEART SCORE: Hx: high/mod/low suspicion: 0 ECG: ST depression/nonspecific changes/normal: 0 Age: Greater than 65/45-64/less than 45: 1 Risk factors: (Hypertension, hyperlipidemia, diabetes, coronary disease, tobacco use, cocaine use): 1 Troponin: Greater than 2 times normal limits/1-2 times normal limits/normal: 0 Total: 2 Consultation: A consultation was placed with the hospitalist. The case was discussed and diagnostics were reviewed. The patient was evaluated in the ER for further treatment. Exam and history seem consistent with aspiration pneumonia. Patient was started on IV antibiotics. Blood cultures are pending. Negative lactic. Medicine was consulted and the case was discussed. Patient was admitted to the medical service. By the evaluation outlined above emergent etiologies such as cardiac ischemia, aortic dissection, pulmonary embolism, pneumothorax, pericarditis, myocarditis, gastrointestinal, as well as others were deemed relatively unlikely. The pt informed about the findings as listed above. All questions were answered and pleased with the treatment. The chart was completed utilizing [employer] Speech voice recognition software. Grammatical errors, random word insertions, pronoun errors, and incomplete sentences are an occassional consequence of this system due to software limitations, ambient noise, and hardware issues. Any formal questions or concerns about the content, text, or information contained within the body of this dictation should be directly addressed to the physician certified teacher assistant for clarification. Impression & Plan Aspiration pneumonia Discharge Plan Visit Data Chief Complaint: Respiratory Problems Stated Complaint: TRACH, CAREGIVER WORRIED ABOUT DESATING ED Provider: Jose Raymond ED Midlevel Provider: Cathie Ponce Discharge Problem: Aspiration pneumonia Patient Disposition: Admitted As Inpatient Condition: Fair Forms Stand Alone Forms: [facility] Prescriptions Prescriptions: No Action ipratropium-albuterol 0.5 mg-3 mg(2.5 mg base)/3 mL solution for nebulization 3 ml INHALATION BID Eliquis 5 mg tablet 5 mg feeding tube BID gabapentin 300 mg capsule 600 mg feeding tube TID scopolamine base 1 mg over 3 days patch 3 day 1 patch topical [id number] clonazepam 0.5 mg tablet 0.5 mg feeding tube TID PRN (Reason: Anxiety) albuterol sulfate 2.5 mg /3 mL (0.083 %) Solution For Nebulization 2.5 mg INHALATION Q6H PRN (Reason: Shortness Of Breath Or Wheezing) olanzapine 5 mg Tablet 5 mg feeding tube DAILY clonazepam 1 mg Tablet 0.75 mg feeding tube TID melatonin 3 mg Tablet 3 mg feeding tube HS furosemide [Lasix] 20 mg Tablet 20 mg feeding tube DAILY fentanyl 25 mcg/hr Patch 72 Hour 1 patch TRANSDERMAL Q72H atropine 1 % Drops 1 drp BUCCAL TID potassium bicarb-citric acid 25 mEq Tablet, Effervescent 25 meq feeding tube DAILY oxycodone 5 mg Tablet 7.5 mg feeding tube Q4H PRN (Reason: Pain, Moderate) midodrine 10 mg Tablet 10 mg PO TID Rx Instructions: do not give last dose of day after 6PM or within 4 hrs of bedtime escitalopram oxalate [Lexapro] 10 mg Tablet 30 mg feeding tube QAM mirtazapine 7.5 mg Tablet 7.5 mg feeding tube HS Pantoprazole/Sodium Bicarb 40 mg feeding tube QAM Rx Instructions: STRENGTH 2 MG/ 1 ML---TAKE 40 MG/20 ML Referrals Referrals: Keith Cross MD [Primary Care Provider] - Discharge Problem: Aspiration pneumonia Qualifiers: Aspiration pneumonia type: unspecified Laterality: bilateral Lung location: u nspecified part of lung Qualified Code(s): J69.0 - Pneumonitis due to inhalation of food and vomit
[2024-03-28] MEDS: LORazepam 1 MG/1 ML SYR ED Inj Use IV STA (00:01)
[2024-03-28 00:07] LABS: Hematocrit (blood only) 33.9 % (42.0-52.0); Hemoglobin 10.5 g/dl (14.0-18.0); Mean Corpuscular Hemoglobin 27.3 pg (25.0-34.0); Mean Corpuscular Volume 88.1 fL (80.0-100.0); Mean Platelet Volume 11.3 fL (9.4-12.4); Platelet Count 297 K/uL (130-400); RDW Standard Deviation 45.1 fL (36.4-46.3); Red Blood Count 3.85 M/uL (4.70-6.10); White Blood Count 17.44 K/ul (4.8-10.8)
[2024-03-28 00:20] LABS: Alanine Aminotransferase 22 U/L (7-52); Albumin Globulin Ratio 0.9 (0.9-2); Albumin Level 3.5 gm/dl (3.4-5.0); Alkaline Phosphatase 99 U/L (34-104); Anion Gap 8 (3-11); Aspartate Aminotransferase 23 U/L (13-39); Bilirubin,Total 0.5 mg/dl (0.2-1.0); Blood Urea Nitrogen 13 mg/dl (6-23); Calcium 9.2 mg/dl (8.6-10.3); Carbon Dioxide 32 mmol/L (21-32); Chloride 96 mmol/L (98-107); Creatinine Clr Calc Pharmacy 477.9 ml/min; Est GFR (African American) > 150.0 ml/min; Est GFR (Non-African American) > 150.0 ml/min; Glucose 146 mg/dl (70-99(Fasting)); Lipase 10 U/L (11-82); Potassium 3.5 mmol/L (3.5-5.1); Sodium 136 mmol/L (136-145); Total Protein 7.5 gm/dl (6.0-8.3)
[2024-03-28 00:26] LABS: Troponin I High Sensitivity 11.2 pg/ml (0-20)
[2024-03-28 00:47] LABS: Basophils # (auto) 0.03 K/uL (0.00-0.20); Basophils % (auto) 0.2 %; Immature Granulocytes % (auto) 0.6 %; Lymphocytes # (auto) 0.41 K/uL (1.20-3.40); Lymphocytes % (auto) 2.4 %; Monocytes # (auto) 0.62 K/uL (0.11-0.59); Monocytes % (auto) 3.6 %; Neutrophils # (auto) 16.28 K/uL (1.40-6.50); Neutrophils % (auto) 93.2 %
[2024-03-28] MEDS: OPTIRAY 320 125ml IV ONE (01:29)
--- NOTE | 2024-03-28 01:44 | CT Scan Report ---
Exam(s): CTA CHEST IV Amt: 118 ML OPTIRAY 320 EXAM: CT Angiography Chest With Intravenous Contrast CLINICAL HISTORY: Reason for exam: PE, ALS, SOB. TECHNIQUE: Axial computed tomographic angiography images of the chest with intravenous contrast. CTDI is 20.33 mGy and DLP is 625.93 mGy-cm. Automated exposure control was utilized for the study. A dose lowering technique was utilized adhering to the principles of ALARA. MIP reconstructed images were created and reviewed. COMPARISON: No relevant prior studies available. FINDINGS: Pulmonary arteries: Unremarkable. No acute pulmonary embolism. Aorta: No acute findings. No thoracic aortic aneurysm. Lungs: Extensive bilateral dependent aspiration pneumonia, LEFT greater than RIGHT. Bilateral para-pneumonic effusions. No mass. Pleural space: Unremarkable. No significant effusion. No pneumothorax. Heart: Unremarkable. No cardiomegaly. No significant pericardial effusion. No evidence of RV dysfunction. Bones/joints: No acute fracture. No dislocation. Soft tissues: Gynecomastia. Lymph nodes: Unremarkable. No enlarged lymph nodes. Liver: Hepatic steatosis. Tubes, lines and devices: Midline tracheostomy tube. IMPRESSION: 1. No acute pulmonary embolism. 2. Extensive bilateral dependent aspiration pneumonia, LEFT greater than RIGHT. Bilateral para-pneumonic effusions. Electronically signed by: Chriss Barkely MD 03/28/24 01:43 AM
[2024-03-28] MEDS ORDERED: VANCOMYCIN CONSULT ACTIVE PRN (01:55)
[2024-03-28] MEDS: PIPERACILLIN/TAZOBACTAM 4.5 GM/100 ML BAG IV ONE (02:25)
[2024-03-28] MEDS: SODIUM CHLORIDE 0.9% 1,000 ML IV ONE ×2 (02:26→05:07)
[2024-03-28] MEDS: VANCOMYCIN HCL 1,500 MG in SODIUM CHLORIDE 0.9% 500 ML IV ONE (02:26)
[2024-03-28] MEDS: HYDROmorphone INJ 0.5 MG/0.5 ML SYR IV STA (02:50)
[2024-03-28] MEDS ORDERED: LORazepam 1 MG/1 ML SYR ED Inj Use IV STA (03:14)
[2024-03-28] MEDS: ACETAMINOPHEN 1,000 MG/100 ML VIAL IV STA (03:22)
[2024-03-28] MEDS: LORazepam 0.25 MG in SYRINGE 0.125 ML IV STA (03:22)
--- NOTE | 2024-03-28 03:27 | Emergency Department Note ---
ED Visit Note I was consulted by the Advanced Practice Provider. I personally made/approved the management plan and take responsibility for the patient management. I performed a substantive portion of the visit. This .
--- NOTE | 2024-03-28 05:32 | History & Physical Report ---
Date of Service March 28, 2024 Assessment & Plan (1) Pneumonia: Plan: 48-year-old male with past medical history significant for orthostatic hypotension, irritable bowel syndrome, GERD, ALS, attention deficit disorder without hyperactivity, history of DVT and PE, depression with anxiety who lives at home with his and wheelchair-bound who was recently in the hospital end of January with septic shock and right lower lung collapse and aspiration pneumonia and acute hypoxic respiratory failure s/p intubation and tracheostomy on 02/08/24 as he was unable to be extubated in setting of progressive ALS and and s/p PEG tube placement and did ok and was was discharged to LTAC in [place] and was discharged home from LTAC yesterday and after coming home complained of chest pain and also suction machine was not working and everything was not set up properly and got worried and brought him here. Currently no chest pain. Blood pressure somewhat soft. Has a lot of cough. Was feeling a lot of anxiety and required Ativan. Somewhat drowsy. But able to answer with nodding head and in the room helped with H&P. As per no fevers. No nausea/ vomiting. Currently nutrition is from PEG tube. As per at LTAC swallow evaluation was done but patient did not do good and was advised everything by PEG tube. Somewhat constipated. Micturating okay. No abdominal pain. pneumonia CT scan showing no PE, extensive bilateral dependent aspiration pneumonia left greater than right. Bilateral parapneumonic effusions. Received IV Vanco and Zosyn in the ER which will be continued follow cultures lactic acid ok. pulmonary consult continue home nebs close monitor orthostatic hypotension getting fluids on midodrine anxiety continue home clonazepam history of DVT and PE on Eliquis history of ADHD without hyperactivity depression with anxiety continue home meds neuropathy on gabapentin diet currently on tube feeds will consult nutrition ALS quadriplegia in the setting of ALS and nonambulatory status BiPAP while sleeping at home s/p trach currently on vent GERD PPI DVT prophylaxis on Eliquis disposition telemetry full code. History of Present Illness Chief Complaint: Chest pain, pneumonia Primary Care Provider: Keith Cross MD 48-year-old male with past medical history significant for orthostatic hypotension, irritable bowel syndrome, GERD, ALS, attention deficit disorder without hyperactivity, history of DVT and PE, depression with anxiety who lives at home with his and wheelchair-bound who was recently in the hospital end of January with septic shock and right lower lung collapse and aspiration pneumonia and acute hypoxic respiratory failure s/p intubation and tracheostomy on 02/08/24 as he was unable to be extubated in setting of progressive ALS and and s/p PEG tube placement and did ok and was was discharged to LT in [place] and was discharged home from LT yesterday and after coming home complained of chest pain and also suction machine was not working and everything was not set up properly and got worried and brought him here. Currently no chest pain. Blood pressure somewhat soft. Has a lot of cough. Was feeling a lot of anxiety and required Ativan. Somewhat drowsy. But able to answer with nodding head and in the room helped with H&P. As per no fevers. No nausea/ vomiting. Currently nutrition is from PEG tube. As per at LTAC swallow evaluation was done but patient did not do good and was advised everything by PEG tube. Somewhat constipated. Micturating okay. No abdominal pain. Past medical history. As mentioned above. Past surgical history. Circumcision. Graft rib cartilage to face. Knee arthroscopy. Rhinoplasty. Appendectomy. Revision of ulnar nerve at elbow left side. Vasectomy. Tracheostomy Social history. . No smoking. Alcohol rare. No drug use Family history. Father had blood clot. Depression. Mother had hypertension. Maternal grandfather had mouth cancer. Stroke. Maternal grandmother had hypertension. Paternal grandfather had [place]. Allergies Allergy/AdvReac Type Severity Reaction Status Date / Time tramadol AdvReac Intermediate GI Verified 03/27/24 23:50 discomfort Home Medications Medication Instructions Recorded Confirmed Type apixaban 5 mg tablet (Eliquis) 5 mg feeding tube BID 11/19/20 03/28/24 History ipratropium 0.5 mg-albuterol 3 mg 3 ml inhalation BID 07/25/23 03/28/24 History (2.5 mg base)/3 mL nebulization soln gabapentin 300 mg capsule 600 mg feeding tube TID 11/14/23 03/28/24 History clonazepam 0.5 mg tablet 0.5 mg feeding tube TID PRN Anxiety 02/05/24 03/28/24 History scopolamine base 1 mg over 3 days 1 patch topical [id number] 02/05/24 03/28/24 History transdermal patch Pantoprazole/Sodium Bicarb 40 mg feeding tube QAM 03/28/24 03/28/24 History albuterol sulfate 2.5 mg/3 mL 2.5 mg inhalation Q6H PRN 03/28/24 03/28/24 History (0.083 %) solution for nebulization Shortness Of Breath Or Wheezing atropine 1 % eye drops 1 drp buccal TID 03/28/24 03/28/24 History clonazepam 1 mg tablet 0.75 mg feeding tube TID 03/28/24 03/28/24 History escitalopram oxalate 10 mg tablet 30 mg feeding tube QAM 03/28/24 03/28/24 History (Lexapro) fentanyl 25 mcg/hr transdermal 1 patch transdermal Q72H 03/28/24 03/28/24 History patch furosemide 20 mg tablet (Lasix) 20 mg feeding tube DAILY 03/28/24 03/28/24 History melatonin 3 mg tablet 3 mg feeding tube HS 03/28/24 03/28/24 History midodrine 10 mg tablet 10 mg PO TID 03/28/24 03/28/24 History mirtazapine 7.5 mg tablet 7.5 mg feeding tube HS 03/28/24 03/28/24 History olanzapine 5 mg tablet 5 mg feeding tube DAILY 03/28/24 03/28/24 History oxycodone 5 mg tablet 7.5 mg feeding tube Q4H PRN Pain, 03/28/24 03/28/24 History Moderate potassium bicarbonate-citric acid 25 meq feeding tube DAILY 03/28/24 03/28/24 H istory 25 mEq effervescent tablet Past Med/Surg History Problem List (Updated 03/28/24 @ 09:17 by Rodrick Burroughs MD) Tracheostomy dependence Bilateral pleural effusion Anxiety Decreased oral intake Palliative care by specialist Advanced care planning/counseling discussion Weakness generalized Dyspnea and respiratory abnormalities Aspiration pneumonia (Acute) Acute hypercapnic respiratory failure Aspiration into respiratory tract Sepsis (Acute) Pneumonia (Acute) Pneumonia Acute hypoxemic respiratory failure (Acute) Vitamin D deficiency Neuropathy Sepsis Abdominal pain (Acute) Weakness (Acute) COVID-19 (Acute) COVID-19 Fatigue after COVID-19 vaccination (Acute) Pulmonary nodule Acute saddle pulmonary embolism Medical History Depression (11/28/12) Bronchitis (11/28/12) History of ventilator dependency Acute hypoxemic respiratory failure Acute dyspnea SBO (small bowel obstruction) History of pulmonary embolism ADD (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 GERD (gastroesophageal reflux disease) ALS (amyotrophic lateral sclerosis) Surgical History H/O esophagogastroduodenoscopy (02/13/24) Esophagogastroduodenoscopy, Endoscopic percutaneous endoscopic gastrostomy placement - Saul Pitts, DO Hx of tracheostomy History of vasectomy H/O rhinoplasty S/P left knee arthroscopy Family History Father Pulmonary embolism Mother Hypertension Social History Smoking Status: Never smoker Second Hand Exposure: No; Do You Dip or Chew Tobacco: No; Tobacco Cessation Education Requested by Patient: No Hx Alcohol Use: No Hx Substance Use: No Preferred Language: Malian Communication Ability: Impaired Communication Ability Comment: ALS Associate Programmer Required: No Beliefs That Will Affect Care: None marital status: Current Living Situation: Spouse current occupational status: employed Other Information That Helps Us Care for You: No Feels Safe at Home: Yes Safety Concerns: Feels Safe At This Time Assistive Devices: Wheelchair Review of Systems Review of Systems: All systems reviewed & are unremarkable except as noted in HPI & below Physical Exam Physical Exam: General- Not in distress. Head- atraumatic Eyes- PERRL,. ENT- oropharynx clear Neck- supple, no JVD,Trach site no drainage or erythema seen Lungs- clear to auscultation no wheezing or crackles. Heart- regular rhythm; no murmur, no gallop. Abdomen- normal bowel sounds, soft, nontender, no distension. Peg tube site no drainage or erythema seen. Extremities- no pretibial edema, no erythema seen Neuro- alert, oriented ;answering with moving head or moving lips, PERRL, no facial palsy; Results & Data Results & Data Vital Signs (Past 12 Hours) Vital Signs Temp Pulse Pulse Resp BP Pulse Ox O2 Del Method 03/28/24 05:06 80 21 85/60 L 95 Mechanical Vent 03/28/24 05:00 83 20 78/56 L 97 Mechanical Vent 03/28/24 04:30 80 16 72/48 L 95 Mechanical Vent 03/28/24 04:30 81 23 72/48 L 95 Mechanical Vent 03/28/24 04:03 87 03/28/24 04:00 84 16 72/49 L 95 Mechanical Vent 03/28/24 03:00 88 16 95/64 L 96 Mechanical Vent 03/28/24 02:06 99 H 21 109/70 97 Mechanical Vent 03/28/24 01:33 96 H 14 125/81 99 Mechanical Vent 03/28/24 01:00 92 H 20 89/69 L 93 Mechanical Vent 03/28/24 00:00 92 H 18 110/71 100 Mechanical Vent 03/27/24 23:39 103 H 03/27/24 23:30 102 H 20 99 Ambu-Bag 03/27/24 23:27 106 H 99 Ambu-Bag 03/27/24 23:27 Ambu-Bag 03/27/24 23:27 36.9 C 101 H 18 99 Ambu-Bag 03/27/24 23:27 Trach Collar O2 Flow Rate 03/28/24 05:06 3 03/28/24 05:00 3 03/28/24 04:30 3 03/28/24 04:30 3 03/28/24 04:03 03/28/24 04:00 3 03/28/24 03:00 3 03/28/24 02:06 3 03/28/24 01:33 3 03/28/24 01:00 3 03/28/24 00:00 03/27/24 23:39 03/27/24 23:30 7 03/27/24 23:27 7 03/27/24 23:27 7 03/27/24 23:27 7 03/27/24 23:27 7 Diagnostic Findings Laboratory Results WBC 17.44 K/ul (4.8-10.8) H 03/27/24 23:47 RBC 3.85 M/uL (4.70-6.10) L 03/27/24 23:47 Hgb 10.5 g/dl (14.0-18.0) L 03/27/24 23:47 Hct 33.9 % (42.0-52.0) L 03/27/24 23:47 MCV 88.1 fL (80.0-100.0) 03/27/24 23:47 MCH 27.3 pg (25.0-34.0) 03/27/24 23:47 MCHC 31.0 g/dL (32.0-36.0) L 03/27/24 23:47 RDW Std Deviation 45.1 fL (36.4-46.3) 03/27/24 23:47 RDW Coeff of Hussain 14.0 % (11.5-14.5) 03/27/24 23:47 Plt Count 297 K/uL (130-400) 03/27/24 23:47 MPV 11.3 fL (9.4-12.4) 03/27/24 23:47 Immature Gran % (Auto) 0.6 % 03/27/24 23:47 Neut % (Auto) 93.2 % 03/27/24 23:47 Lymph % (Auto) 2.4 % 03/27/24 23:47 [place] % (Auto) 3.6 % 03/27/24 23:47 Eos % (Auto) 0.0 % 03/27/24 23:47 Baso % (Auto) 0.2 % 03/27/24 23:47 Neut # (Auto) 16.28 K/uL (1.40-6.50) H 03/27/24 23:47 Lymph # (Auto) 0.41 K/uL (1.20-3.40) L 03/27/24 23:47 [place] # (Auto) 0.62 K/uL (0.11-0.59) H 03/27/24 23:47 Eos # (Auto) 0.00 K/uL (0.00-0.50) 03/27/24 23:47 Baso # (Auto) 0.03 K/uL (0.00-0.20) 03/27/24 23:47 Immature Gran # (Auto) 0.10 K/uL (0.01-0.20) 03/27/24 23:47 Sodium 136 mmol/L (136-145) 03/27/24 23:47 Potassium 3.5 mmol/L (3.5-5.1) 03/27/24 23:47 Chloride 96 mmol/L (98-107) L 03/27/24 23:47 Carbon Dioxide 32 mmol/L (21-32) 03/27/24 23:47 Anion Gap 8 (3-11) 03/27/24 23:47 BUN 13 mg/dl (6-23) 03/27/24 23:47 Creatinine < 0.20 mg/dl (0.6-1.4) L 03/27/24 23:47 Est Cr Clr Drug Dosing 477.9 ml/min 03/27/24 23:47 Est GFR ( Amer) > 150.0 ml/min 03/27/24 23:47 Est GFR (Non-Af Amer) > 150.0 ml/min 03/27/24 23:47 BUN/Creatinine Ratio TNP 03/27/24 23:47 Glucose 146 mg/dl (70-99(Fasting)) H 03/27/24 23:47 Lactate 0.8 mmol/L (0.4-2.0) 03/28/24 01:39 Calcium 9.2 mg/dl (8.6-10.3) 03/27/24 23:47 Total Bilirubin 0.5 mg/dl (0.2-1.0) 03/27/24 23:47 AST 23 U/L (13-39) 03/27/24 23:47 ALT 22 U/L (7-52) 03/27/24 23:47 Alkaline Phosphatase 99 U/L (34-104) 03/27/24 23:47 Troponin I High Sens 11.2 pg/ml (0-20) 03/27/24 23:47 Total Protein 7.5 gm/dl (6.0-8.3) 03/27/24 23:47 Albumin 3.5 gm/dl (3.4-5.0) 03/27/24 23:47 Globulin 4.0 gm/dl (2.5-4.0) 03/27/24 23:47 Albumin/Globulin Ratio 0.9 (0.9-2) 03/27/24 23:47 Lipase 10 U/L (11-82) L 03/27/24 23:47 Impressions Chest CTA 03/28/24 00:28 Exam(s): CTA CHEST IV Amt: 118 ML OPTIRAY 320 EXAM: CT Angiography Chest With Intravenous Contrast CLINICAL HISTORY: Reason for exam: PE, ALS, SOB. TECHNIQUE: Axial computed tomographic angiography images of the chest with intravenous contrast. CTDI is 20.33 mGy and DLP is 625.93 mGy-cm. Automated exposure control was utilized for the study. A dose lowering technique was utilized adhering to the principles of ALARA. MIP reconstructed images were created and reviewed. COMPARISON: No relevant prior studies available. FINDINGS: Pulmonary arteries: Unremarkable. No acute pulmonary embolism. Aorta: No acute findings. No thoracic aortic aneurysm. Lungs: Extensive bilateral dependent aspiration pneumonia, LEFT greater than RIGHT. Bilateral para-pneumonic effusions. No mass. Pleural space: Unremarkable. No significant effusion. No pneumothorax. Heart: Unremarkable. No cardiomegaly. No significant pericardial effusion. No evidence of RV dysfunction. Bones/joints: No acute fracture. No dislocation. Soft tissues: Gynecomastia. Lymph nodes: Unremarkable. No enlarged lymph nodes. Liver: Hepatic steatosis. Tubes, lines and devices: Midline tracheostomy tube. IMPRESSION: 1. No acute pulmonary embolism. 2. Extensive bilateral dependent aspiration pneumonia, LEFT greater than RIGHT. Bilateral para-pneumonic effusions. Electronically signed by: Chriss Barkley MD 03/28/24 01:43 AM ECG Additional Comments: ECG. Sinus tachycardia rate of 102. Possible left atrial enlargement. No acute ST changes seen. Code Status & VTE Plan VTE Prophylaxis Plan VTE Prophylaxis will be ordered: Yes
[2024-03-28] MEDS ORDERED: clonazePAM 0.5 MG TAB PO PRN (06:49)
[2024-03-28] MEDS ORDERED: ALBUTEROL 0.083% NEBU SOLN 3 ML VIAL INH PRN (06:49)
[2024-03-28] MEDS ORDERED: NITROGLYCERIN SL 0.4 MG/TAB TAB SL PRN (06:49)
--- NOTE | 2024-03-28 06:51 | XRay Report ---
XR chest 1V portable CLINICAL HISTORY: Chest pain, nonspecific TECHNIQUE: Single frontal radiograph of the chest was obtained. Comparison: Comparison is made to chest radiograph 02/14/2024 FINDINGS: Tracheostomy tube is seen. The cardiomediastinal silhouette is normal. There is an airspace opacity i n the left lower lobe. No evidence of pleural effusion or pneumothorax. IMPRESSION: Airspace opacity in the left lower lobe may represent atelectasis, pneumonia, and/or aspiration. ACT 112: Negative or not required by law. Electronically signed by: Keny Cantu M.D. 03/28/2024 6:50 AM
[2024-03-28] MEDS ORDERED: TPN/PPN CONSULT PHARMACY PRN (07:17)
[2024-03-28] MEDS: ALBUT/IPRATROP 3MG/0.5MG NEB 3 ML VIAL INH SCH (07:38)
[2024-03-28] MEDS: TPN/PPN CONSULT PHARMACY STA (07:43)
[2024-03-28] MEDS: oxyCODONE HCL IR 5 MG TAB (IMMEDIATE RELEASE) PEG PRN (07:54)
[2024-03-28] MEDS: SODIUM CHLORIDE 0.9% 1,000 ML IV SCH ×2 (07:54→13:45)
[2024-03-28] MEDS: fentaNYL 25 MCG/HR TDSY TD SCH (07:59)
[2024-03-28 08:14] LABS: Basophils # (auto) 0.03 K/uL (0.00-0.20); Basophils % (auto) 0.2 %; Eosinophils # (auto) 0.02 K/uL (0.00-0.50); Eosinophils % (auto) 0.2 %; Hematocrit (blood only) 26.9 % (42.0-52.0); Hemoglobin 8.3 g/dl (14.0-18.0); Immature Granulocytes # (auto) 0.05 K/uL (0.01-0.20); Immature Granulocytes % (auto) 0.4 %; Lymphocytes # (auto) 0.93 K/uL (1.20-3.40); Lymphocytes % (auto) 7.6 %; Mean Corpuscular Hemoglobin 27.2 pg (25.0-34.0); Mean Corpuscular Hgb Conc 30.9 g/dL (32.0-36.0); Mean Corpuscular Volume 88.2 fL (80.0-100.0); Mean Platelet Volume 11.6 fL (9.4-12.4); Monocytes # (auto) 0.85 K/uL (0.11-0.59); Monocytes % (auto) 6.9 %; Neutrophils # (auto) 10.42 K/uL (1.40-6.50); Neutrophils % (auto) 84.7 %; Platelet Count 257 K/uL (130-400); RDW Coefficient of Variation 13.9 % (11.5-14.5); RDW Standard Deviation 44.5 fL (36.4-46.3); Red Blood Count 3.05 M/uL (4.70-6.10)
[2024-03-28 08:38] LABS: Anion Gap 7 (3-11); Blood Urea Nitrogen 13 mg/dl (6-23); Calcium 8.8 mg/dl (8.6-10.3); Carbon Dioxide 28 mmol/L (21-32); Chloride 102 mmol/L (98-107); Creatinine Clr Calc Pharmacy 474.7 ml/min; Est GFR (African American) > 150.0 ml/min; Est GFR (Non-African American) > 150.0 ml/min; Glucose 102 mg/dl (70-99(Fasting)); Magnesium 1.8 mg/dl (1.7-2.4); Potassium 3.1 mmol/L (3.5-5.1); Sodium 137 mmol/L (136-145); Troponin I High Sensitivity 5.6 pg/ml (0-20)
[2024-03-28] MEDS: PIPERACILLIN/TAZOBACTAM 4.5 GM in DEXTROSE 5% MINI-B 100 ML IV SCH (08:59)
[2024-03-28] MEDS: SCOPOLAMINE 1 MG/72 HR TDSY PATCH TD SCH (09:00)
[2024-03-28] MEDS: APIXABAN 5 MG TABLET PO SCH (09:00)
[2024-03-28] MEDS: CHECK fentaNYL PATCH PLACEMENT SCH (09:00)
[2024-03-28] MEDS: CHECK SCOPOLAMINE PATCH PLACEMENT SCH (09:00)
[2024-03-28] MEDS: OLANZapine 5 MG TABLET PO SCH (09:01)
[2024-03-28] MEDS: MIDODRINE HCL 10 MG TAB PO SCH (09:01)
[2024-03-28] MEDS: ATROPINE SULFATE 1% OP SOLN 5 ML BTL OP SCH (09:01)
[2024-03-28] MEDS: ESCITALOPRAM OXALATE 10 MG TAB PO SCH (09:01)
[2024-03-28] MEDS: LANSOPRAZOLE 30 MG SOLTAB NG SCH (09:02)
[2024-03-28] MEDS: GABAPENTIN 300 MG CAP PO SCH (09:02)
--- NOTE | 2024-03-28 09:18 | Pulmonary Consultation ---
Date of Consultation March 28, 2024 Assessment & Plan (1) Aspiration pneumonia: Patient at risk for recurrent aspiration pneumonia due to poor cough mechanism from ALS. Will start percussive vest therapy 4 times a day and hypertonic saline twice daily. Continue frequent suctioning. Start CoughAssist 4 times daily. Obtain sputum culture. Agree with antibiotics at this time. Possible bronchoscopy tomorrow morning if unable to clear secretions with the above-mentioned modalities. Aspiration pneumonia type: unspecified Laterality: bilateral Lung location: unspecified part of lung Qualified Code(s): J69.0 - Pneumonitis due to inhalation of food and vomit (2) Bilateral pleural effusion: Discontinue IV fluids. Suspect element of low oncotic pressure leading to dependent pleural effusions bilaterally. (3) ALS (amyotrophic lateral sclerosis): Recommend palliative care consultation for ongoing discussions regarding goals of care as the patient remains full code. (4) GERD (gastroesophageal reflux disease): Recommend continued antireflux medications. (5) Tracheostomy dependence: Patient is fully dependent on ventilator and tracheostomy. Will continue ventilator. Plan Thanks for the consult. Will follow. Patient's was at bedside and updated. History of Present Illness Reason for Consultation: Bibasilar pneumonia in ALS patient who is chronically vented Attending Physician: Samuel Piedra MD History of Present Illness 48-year-old male who was recently discharged from this hospital 02/16/2024 due to right lower lobe aspiration pneumonia. He underwent placement of a tracheostomy due to acute on chronic respiratory failure. He was ultimately discharged to an LTAC in [place] and was then discharged from LTAC 2 nights ago. At home he was having ongoing chest pain and shortness of breath. His family was having trouble with his suction machine and equipment. He was admitted to the hospital due to worsening respiratory failure and had an x-ray which revealed bibasilar infiltrates. CT scan did not reveal any evidence of PE. Bilateral aspiration pneumonia was seen left, left greater than right. Small bilateral effusions were seen as well. Patient is currently on Zosyn. MRSA screen was negative on admission. Allergies Allergy/AdvReac Type Severity Reaction Status Date / Time tramadol AdvReac Intermediate GI Verified 03/27/24 23:50 discomfort Home Medications Medication Instructions Recorded Confirmed Type apixaban 5 mg tablet (Eliquis) 5 mg feeding tube BID 11/19/20 03/28/24 History ipratropium 0.5 mg-albuterol 3 mg 3 ml inhalation BID 07/25/23 03/28/24 History (2.5 mg base)/3 mL nebulization soln gabapentin 300 mg capsule 600 mg feeding tube TID 11/14/23 03/28/24 History clonazepam 0.5 mg tablet 0.5 mg feeding tube TID PRN Anxiety 02/05/24 03/28/24 History scopolamine base 1 mg over 3 days 1 patch topical [id number] 02/05/24 03/28/24 History transdermal patch Pantoprazole/Sodium Bicarb 40 mg feeding tube QAM 03/28/24 03/28/24 History albuterol sulfate 2.5 mg/3 mL 2.5 mg inhalation Q6H PRN 03/28/24 03/28/24 History (0.083 %) solution for nebulization Shortness Of Breath Or Wheezing atropine 1 % eye drops 1 drp buccal TID 03/28/24 03/28/24 History clonazepam 1 mg tablet 0.75 mg feeding tube TID 03/28/24 03/28/24 History escitalopram oxalate 10 mg tablet 30 mg feeding tube QAM 03/28/24 03/28/24 History (Lexapro) fentanyl 25 mcg/hr transdermal 1 patch transdermal Q72H 03/28/24 03/28/24 History patch furosemide 20 mg tablet (Lasix) 20 mg feeding tube DAILY 03/28/24 03/28/24 History melatonin 3 mg tablet 3 mg feeding tube HS 03/28/24 03/28/24 History midodrine 10 mg tablet 10 mg PO TID 03/28/24 03/28/24 History mirtazapine 7.5 mg tablet 7.5 mg feeding tube HS 03/28/24 03/28/24 History olanzapine 5 mg tablet 5 mg feeding tube DAILY 03/28/24 03/28/24 History oxycodone 5 mg tablet 7.5 mg feeding tube Q4H PRN Pain, 03/28/24 03/28/24 History Moderate potassium bicarbonate-citric acid 25 meq feeding tube DAILY 03/28/24 03/28/24 History 25 mEq effervescent tablet Patient History Medical History Depression (11/28/12) Bronchitis (11/28/12) History of ventilator dependency Acute hypoxemic respiratory failure Acute dyspnea SBO (small bowel obstruction) History of pulmonary embolism ADD (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 GERD (gastroesophageal reflux disease) ALS (amyotrophic lateral sclerosis) Surgical History H/O esophagogastroduodenoscopy (02/13/24) Esophagogastroduodenoscopy, Endoscopic percutaneous endoscopic gastrostomy placement - Saul Pitts, Hx of tracheostomy History of vasectomy H/O rhinoplasty S/P left knee arthroscopy Family History Father Pulmonary embolism Mother Hypertension Social History Smoking Status: Never smoker Second Hand Exposure: No; Do You Dip or Chew Tobacco: No; Tobacco Cessation Education Requested by Patient: No Hx Alcohol Use: No Hx Substance Use: No Preferred Language: French Communication Ability: Impaired Communication Ability Comment: ALS Electronic Test Technician Required: No Beliefs That Will Affect Care: None marital status: Current Living Situation: Spouse current occupational status: employed Other Information That Helps Us Care for You: No Feels Safe at Home: Yes Safety Concerns: Feels Safe At This Time Assistive Devices: Mechanical Lift Review of Systems Review of Systems: All systems reviewed & are unremarkable except as noted in HPI & below Physical Exam Physical Exam: Constitutional: Patient appears to be of their stated age. Patient is in no apparent distress. Patient is well-developed. Eyes: Pupils are equal round and reactive to light. Conjunctivae are normal. Anicteric sclera. Ears nose, mouth and throat: Tracheostomy in place. Neck: Trachea is midline. Visual inspection is normal. Respiratory: Coarse rhonchi bilaterally. Cardiovascular: Regular rate and rhythm. No murmurs. No edema. Gastrointestinal: Normal bowel sounds, soft, nontender and nondistended. No hepatosplenomegaly noted. Musculoskeletal: No cyanosis. Patient is able to move all extremities. Strength is 5 out of 5 in the upper and lower extremities. Skin: No rashes, warm dry and intact. Neurologic: No obvious focal neurological deficits seen. Psychiatric: Alert and oriented x3 with a euthymic affect. Results & Data Results & Data Vital Signs (Past 12 Hours) Vital Signs Temp Pulse Pulse Resp BP BP Pulse Ox 03/28/24 07:56 80 18 98 03/28/24 06:45 36.8 C 82 101/68 98 03/28/24 06:30 03/28/24 06:30 36.6 C 77 22 98/62 L 94 03/28/24 06:00 74 16 75/47 L 96 03/28/24 05:58 36.9 C 73 16 77/49 L 96 03/28/24 05:06 80 21 85/60 L 95 03/28/24 05:00 83 20 78/56 L 97 03/28/24 04:30 80 16 72/48 L 95 03/28/24 04:30 81 23 72/48 L 95 03/28/24 04:03 87 03/28/24 04:00 84 16 72/49 L 95 03/28/24 03:00 88 16 95/64 L 96 03/28/24 02:06 99 H 21 109/70 97 03/28/24 01:33 96 H 14 125/81 99 03/28/24 01:00 92 H 20 89/69 L 93 03/28/24 00:00 92 H 18 110/71 100 03/27/24 23:39 103 H 03/27/24 23:30 102 H 20 99 03/27/24 23:27 106 H 99 03/27/24 23:27 03/27/24 23:27 36.9 C 101 H 18 99 03/27/24 23:27 O2 Del Method O2 Flow Rate 03/28/24 07:56 Mechanical Vent 3 03/28/24 06:45 BiPAP 3 03/28/24 06:30 BiPAP 3 03/28/24 06:30 CPAP 3 03/28/24 06:00 Mechanical Vent 3 03/28/24 05:58 Mechanical Vent 3 03/28/24 05:06 Mechanical Vent 3 03/28/24 05:00 Mechanical Vent 3 03/28/24 04:30 Mechanical Vent 3 03/28/24 04:30 Mechanical Vent 3 03/28/24 04:03 03/28/24 04:00 Mechanical Vent 3 03/28/24 03:00 Mechanical Vent 3 03/28/24 02:06 Mechanical Vent 3 03/28/24 01:33 Mechanical Vent 3 03/28/24 01:00 Mechanical Vent 3 03/28/24 00:00 Mechanical Vent 03/27/24 23:39 03/27/24 23:30 Ambu-Bag 7 03/27/24 23:27 Ambu-Bag 7 03/27/24 23:27 Ambu-Bag 7 03/27/24 23:27 Ambu-Bag 7 03/27/24 23:27 Trach Collar 7 PG Care Time/CCT Total # of Minutes Spent Total Time Spent with Patient: Total time spent is greater than 50% in coordination of care (as documented) at patient's floor/unit and/or counseling patient: Coding Level of Care Code 85541 IN/OBS CONSULT LVL 4,60M Diagnoses Aspiration pneumonia J69.0 Aspiration pneumonia type: unspecified Laterality: bilateral Lung location: unspecified part of lung Bilateral pleural effusion J90 ALS (amyotrophic lateral sclerosis) G12.21 GERD (gastroesophageal reflux disease) K21.9 Tracheostomy dependence Z93.0
[2024-03-28] MEDS: clonazePAM 0.25 MG OD TAB PO SCH (09:24)
--- NOTE | 2024-03-28 09:30 | Electrocardiogram Report ---
Test Reason : Blood Pressure : / mmHG Vent. Rate : 102 BPM Atrial Rate : 102 BPM P-R Int : 168 ms QRS Dur : 094 ms QT Int : 354 ms P-R-T Axes : 078 069 084 degrees QTc Int : 461 ms Sinus tachycardia Possible Left atrial enlargement Borderline ECG When compared with ECG of 13-FEB-2024 10:20, Vent. rate has increased BY 38 BPM Confirmed by Tushar Madden ([id number]) on 03/28/2024 9:30:43 AM Referred By: REFERRED SELF Confirmed By:Tushar Madden
--- OUTSIDE RECORDS SUMMARY | 2024-03-28 10:19 | External Medical Summary | Summary of Care ---
Author Name Unknown Organization [facility] Address [address] [place] [address] Phone [phone] Care Team Providers Care Marine Fireman Name Role Phone Keith Cross MD Primary Care Provider [phone] Reason for Referral * Evaluate & Treat - Unlimited Visits (Within 10 days (routine)) - Pending Review Specialty Diagnoses / Procedures Referred By Anamika maciel Referred To Contact Physical Therapy / Physical Medicine And Rehab Diagnoses Benign paroxysmal positional vertigo due to bilateral vestibular disorder Keith Cross MD [address] [place] [address] Referral ID Status Reason Start Date Expiration Date Visits Requested Visits Authorized [id number] Pending Review Specialty Services Required 12/19/[phone] Question Answer Referral Priority Within 10 days (routine) Where should this appointment be scheduled? External Comments Vestibular PT Reason for Visit * Reason Onset Date Comments Order Request 12/19/2023 Encounter Details Date Type Department Care Team (Late st Contact Info) Description 12/19/2023 Telephone Family Practice [facility] [address] [place] [address] Keith Cross MD [address] [place] [address] Order Request Allergies Active Allergy Reactions Criticality Noted Date Comments Tramadol Hcl 12/08/2011 Gi upset documented as of this encounter (statuses as of 03/19/2024) Medications Medication Sig Dispensed Refills Start Date End Date Status escitalopram (LEXAPRO) 10 MG Tablet Take 2 Tablets by mouth in the morning. 04/28/2016 Active Amphetamine-Dextr oamphetamine 30 MG Tablet Take 20 mg by mouth in the morning and 20 mg before bedtime. 30mg in the morning and 30 mg at lunch. Active Multiple Vitamins-Minerals (MULTIVITAMIN ADULT) TABS Take by mouth. Active Mirtazapine 30 MG Oral Tablet Take [...] 120 Capsule 5 06/19/2023 Active Neomycin-Polymyxi n-HC 3.5-38702-2 Otic Solution Administer 4 Drops into ears in the morning and 4 Drops at noon and 4 Drops before bedtime. To affected ear, for 10 days.. 10 mL 1 06/19/2023 Active Ondansetron HCl 4 MG Oral Tablet Take 1 Tablet by mouth every 6 hours as needed for Nausea. 30 Tablet 08/18/2023 Active polyethylene glycol 3350 119 gram OR POWD Take 119 g by mouth once. Active Hyoscyamine Sulfate ER 0.375 MG Oral Tablet Extended Release 12 Hour (Levbid) TAKE 1 TABLET BY MOUTH 2 TIMES A DAY NEEDED FOR CRAMPING OR ABDOMINAL PAIN. DO NOT CUT, CRUSH, OR CHEW 60 Tablet 2 09/05/2023 Active Scopolamine 1 MG/3DAYS Transdermal Patch 72 Hour (Transderm Scop) Place 1 Patch over 72 hours topically on the skin every 3 days. 10 Patch 12 11/14/2023 Active LORazepam 1 MG Oral Tablet (Ativan) Take 1 Tablet by mouth every 6 hours as needed for Anxiety. 11/21/2023 Active Bisacodyl 10 MG Rectal Suppository (Dulcolax) Administer 1 Suppository into the rectum daily as needed for Constipation. Do not use for more than 1 week. 20 Suppository 1 11/27/2023 Active diazePAM 2 MG Oral Tablet (Valium)Indicatio ns:Benign paroxysmal 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 30 Tablet 12/12/2023 Active documented as of this encounter (statuses as of 03/19/2024) Active Problems Problem Noted Date Diagnosed Date Depression with anxiety 06/16/2023 Personal history of DVT (deep vein thrombosis) 0 04/09/2021 History of pulmonary embolism 04/09/2021 ALS (amyotrophic lateral sclerosis) 05/02/2016 Orthostatic hypotension 12/18/2015 GERD (gastroesophageal reflux disease) 6 Irritable bowel syndrome with diarrhea 1 Attention deficit disorder without hyperactivity documented as of this encounter (statuses as of 03/19/2024) Resolved Problems Problem Noted Date Diagnosed Date [...] as of this encounter (statuses as of 03/19/2024) Immunizations Name Administration Dates Next Due COVID-19 [...] 07/24/2014,07/05/2012,06/25/2011,06/11,05/26/2009 TDAP (age 10 and older)(Boostrix) 09/27/2018 TDAP, Age 7 and older, IM (Adacel) 01/30/2009 documented as of this encounter Social [...] money to get more. Never true 11/27/2023 Childcare Answer Date Recorded Do you feel overwhelmed with taking care of a child, family member or friend? No 11/27/2023 Does your family need help f inding childcare? (Household - for ages 0-17 years) Not on file 11/27/2023 Clothing Answer Date Recorded Have you been unable to get clothing when it was really needed? No 11/27/2023 Is your family able to get c lothes or diapers when needed? (Household - for ages 0-17 years) Not on file 11/27/2023 Personal Safety Answer Date Recorded Do you feel unsafe or have concerns for your saf ety? No 11/27/2023 Do you have concerns for you r family's safety? (Household - for ages 0-17 years) Not on file 11/27/2023 Utilities Answer Date Recorded Do you have trouble paying y our heating, water, or electric bill? No 11/27/2023 Is your family able to pay t he heat, water, or electric bill? (Household - for ages 0-17 years) Not on file 11/27/2023 Does your family have access to good internet? (Household - for ages 0-17 years) Not on file 11/27/2023 Employment Status Answer Date Recorded Are you unemployed or without regular income? No 11/27/2023 Does the household have a re gular source of income? (Household - for ages 0-17 years) Not on file 11/27/2023 Social Connections Answer Date Recorded How often do you feel lonely or isolated from th ose around you? Never 11/27/2023 Financial Resource Strain Answer Date R ecorded Do you have any trouble payi ng for your medications, or do you think you might in the future? No 11/27/2023 Does your family have troubl e paying for medicine? (Household - for ages 0-17 years) Not on file 11/27/2023 Transportation Needs Answer Date Record ed READ ONLY Do you have troubl e getting a ride to medical visits or work? Never True 11/27/2023 Does your family have a hard time getting a ride to doctors visits? (Household - for ages 0-17 years) Not on file 11/27/2023 Has lack of transportation k ept you from medical appointments, meetings, work, or from getting things needed for daily living? Check all that apply. (Adult - for ages 18 years and over) Not on file 11/27/2023 Do you (or your family) have trouble finding or paying for a ride (transportation)? (Household - for ages 0-17 years) Not on file 11/27/2023 Housing Stability Answer Date Recorded Do you currently live in a s helter or have no steady place to sleep at night? No 11/27/2023 READ ONLY Do you think you a re at risk of becoming homeless? No 11/27/2023 Does your family worry about paying for your home or becoming homeless? (Household - for ages 0-17 years) Not on file 0 11/27/2023 Are you homeless or worried that you might be in the future? (Adult - for ages 18 years and over) Not on file Are you (or your family) nag eless or worried that you might be in the future? (Household - for ages 0-17 years) Not on file Food Insecurity Answer Date Recorded Do you need food for this week? No 11/27/2023 Are you able to get enough f ood for your family? (Household - for ages 0-17 years) Not on file 11/27/2023 Does your family need food t his week? (Household - for ages 0-17 years) Not on file 11/27/2023 Do you always have enough fo od for your family? (Household - for ages 0-17 years) Not on file 11/27/2023 Sex and Gender Information Value Date Recorded Sex Assigned at Male 01/03/2019 10:21 AM EDT Gender Identity Male 01/03/2019 10:21 AM EDT Sexual Orientation Straight 01/03/2019 10 :21 AM EDT Job Start Date Occupation Industry Not on file Not on file Not on file documented as of this encounter Miscellaneous Notes * Telephone Encounter - Hawa Mcmahan LPN - 12/19/2023 6:28 PM EDT Faxed PT order as requested * Telephone Encounter - Roseanne Ordonez OSA - 12/19/2023 8:09 AM EDT An order was requested for this patient. Name of Requesting Provider: ALBERTINA Giordano, from [facility] Order Requested: orders for PT evaluation and Huyen Maneuver Diagnosis/Reason for Request: patient diagnosis of ALS and vertigo If order request is for Mammogram: Is the patient having any breast symptoms? N/A Is there a chance of ? N/A Has the patient had any breast problems in the past? NA What location AND department does the patient wish to have their order completed at? [facility] Fax Number, if applicable: [phone] Attn: Pasquale Tran OT If the caller is not a current patient, please advise the patient to call their current PCP to havethe order's prior to being seen in our office. The patient was informed that our providers would not order anything (medication, labs, etc.) prior to being seen. documented in this encounter Plan of Treatment Upcoming Encounters Date Type Department Care Team (Late st Contact Info) Description 03/25/2024 10:00 AM EDT Office Visit [facility] [address] [facility] [place] [address] Rachna De La Cruz CRNP [facility] [place] [address] 03/25/2024 2:20 PM EDT Office Visit Pulmonary Medicine, [facility] [address] [facility] [place] [address] Baljit Baldwin MD [address] [place] [address] 06/17/2024 9:00 AM EDT Office Visit [facility] [address] [facility] [place] [address] Keith Cross MD [address] [facility] [place] [address] Scheduled Referrals Name Type Priority Associated Diagnoses Orde r Schedule PHYSICAL THERAPY REFERRAL OP Referral Within 10 days (routine) Benign paroxysmal positional vertigo due to bilateral vestibular disorder Ordered: 12/19/2023 Health Maintenance Due Date Last Done Comments Hepatitis B Vaccine (1 of 3 - 19+ 3-dose series) 1994 Lipid Panel 11/07/2017 11/07/2012 Cologuard 2020 Colonoscopy 2020 Colorectal Cancer Screening 2020 Fecal Occult Blood Test 2020 Sigmoidoscopy 2020 Depression Monitoring 02/25/2021 02/26/2020 COVID-19 Vaccine ( season) 2023 09/01/2021, 02/01/2021, 12/28/2020 Influenza Vaccine (FLU shot) (#1) 2024 06/16/2023, 07/26/2022, 07/26/2022, Additional history exists DTaP,Tdap,and Td Vaccines (3 - Td or Tdap) 09/27/2028 09/27/2018, 01/30/2009 Hepatitis C Screening Completed 04/16/2016 Pneumococcal Vaccine: Pediatrics (0 to 5 Years) and At-Risk Patients (6 to 64 Years) Aged Out 12/26/2016 No longer eligible based on patient's age to complete this topic HPV (Gardasil) Vaccine Aged Out No lo nger eligible based on patient's age to complete this topic MENINGOCOCCAL (MENACTRA/MENVEO) Aged Out No longer eligible based on patient's age to complete this topic documented as of this encounter Medical Devices Implanted Type Area Supervisor Display Fabrication Device Identifier Shelf Expiration Date Model / Serial / Lot Graft Bone Cartilage Costl 6cm - [id number] Implanted:Qty: 1 on 06/22/2016 by Any Tovar MD at [facility] N/A: Nose [employer] 04/16/2021 [id number] / / documented as of this encounter Visit Diagnoses Diagnosis Benign paroxysmal positional vertigo due to bilateral vestibular disorder- Primary documented in this encounter Advance Directives * Full Code (Latest Code Status on File) Date Activated Date Inactivated Comments 07/24/2015 7:58 AM 07/24/2015 3:54 PM This order reflects the patients wishes and were consensually agreed upon. Care Teams Marine Fireman Relationship Specialty Start Date End Date Keith Cross MD [address] [place] [address] PCP - General Family Medicine 03/23/21 documented as of this encounter
--- OUTSIDE RECORDS SUMMARY | 2024-03-28 10:19 | External Medical Summary | Summary of Care ---
Author Name Unknown Organization [facility] Address [address] [place] [address] Phone [phone] Care Team Providers Care Horticulturalist Name Role Phone Jaclyn Gamboa MD Primary Care Provider [phone] Reason for Visit * Reason Comments eRx-Medication Refill Encounter Details Date Type Department Care Team (Late st Contact Info) Description 03/02/2024 Refill Family Practice [facility] [address] [facility] [place] [address] Jaclyn Gamboa MD [address] [facility] [place] [address] Gastroesophageal reflux disease without esophagitis Allergies Active Allergy Reactions Criticality Noted Date Comments Tramadol Hcl 12/08/2011 Gi upset documented as of this encounter (statuses as of 03/03/2024) Medications Medication Sig Dispensed Refills Start Date End Date Status escitalopram (LEXAPRO) 10 MG Tablet Take 2 Tablets by mouth in the morning. 6 Active Amphetamine-Dext roamphetamine 30 MG Tablet Take 20 mg by mouth in the morning and 20 mg before bedtime. 30mg in the morning and 30 mg at lunch. Active Multiple Vitamins-Mineral s (MULTIVITAMIN ADULT) TABS Take by mouth. Active Mirtazapine 30 MG Oral Tablet Take 1 Tablet by mouth at bedtime. 30 Tab 5 0 Active clonazePAM 0.5 MG Oral Tablet (KlonoPIN) Take 1 Tablet (0.5 mg) by mouth every night at bedtime. 90 Tablet 1 11/07/202 2 Active Additional Information Patient taking differently: 0.25 mgOral QHS, Reported on 08/23/2023 Dicyclomine HCl 10 MG Oral Capsule (Bentyl) TAKE 1 CAPSULE BY MOUTH FOUR TIMES DAILY NEEDED NEEDED FOR DIARRHEA AND ABDOMINAL PAIN 120 Capsule 5 3 Active Neomycin-Polymyx in-HC 3.5-31882-8 Otic Solution Administer 4 Drops into ears in the morning and 4 Drops at noon and 4 Drops before bedtime. To affected ear, for 10 days.. 10 mL 1 3 Active Ondansetron HCl 4 MG Oral Tablet Take 1 Tablet by mouth every 6 hours as needed for Nausea. 30 Tablet 3 Active polyethylene glycol 3350 119 gram OR POWD Take 119 g by mouth once. Active Hyoscyamine Sulfate ER 0.375 MG Oral Tablet Extended Release 12 Hour (Levbid) TAKE 1 TABLET BY MOUTH 2 TIMES A DAY NEEDED FOR CRAMPING OR ABDOMINAL PAIN. DO NOT CUT, CRUSH, OR CHEW 60 Tablet 2 3 Active Scopolamine 1 MG/3DAYS Transdermal Patch 72 Hour (Transderm Scop) Place 1 Patch over 72 hours topically on the skin every 3 days. 10 Patch 12 4 Active LORazepam 1 MG Oral Tablet (Ativan) Take 1 Tablet by mouth every 6 hours as needed for Anxiety. 4 Active Bisacodyl 10 MG Rectal Suppository (Dulcolax) Administer 1 Suppository into the rectum daily as needed for Constipation. Do not use for more than 1 week. 20 Suppository 1 4 Active diazePAM 2 MG Oral Tablet (Valium)Indicati ons:Benign paroxysmal 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 30 Tablet 4 Active Vitamin D (Ergocalciferol) 73733 UNIT Oral Capsule Take 1 Capsule by mouth once a week. 12 Capsule 4 Active Apixaban 5 MG Oral Tablet (Eliquis) TAKE 1 TABLET BY MOUTH TWO TIMES DAILY 180 Tablet 4 Active Gabapentin 300 MG Oral Capsule (Neurontin) TAKE 1 CAPSULE BY MOUTH EVERY MORNING, TAKE 1 CAPSULE AT NOON AND TAKE 1 CAPSULE BY MOUTH AT BEDTIME 90 Capsule 5 05/28/202 4 Active Omeprazole 20 MG Oral Capsule Delayed Release (PriLOSEC)Indica tions:Gastroesop hageal reflux disease without esophagitis TAKE 1 CAPSULE BY MOUTH EVERY MORNING 90 Capsule 1 4 Active Omeprazole 20 MG Oral Capsule Delayed Release (PriLOSEC)Indica tions:Gastroesop hageal reflux disease without esophagitis TAKE 1 CAPSULE BY MOUTH EVERY MORNING 90 Capsule 1 4 03/03/20 24 Discontinued documented as of this encounter (statuses as of 03/03/2024) Active Problems Problem Noted Date Diagnosed Date Depression with anxiety 06/16/2023 Personal history of DVT (deep vein thrombosis) 0 04/09/2021 History of pulmonary embolism 04/09/2021 ALS (amyotrophic lateral sclerosis) 05/02/2016 Orthostatic hypotension 12/18/2015 GERD (gastroesophageal reflux disease) 6 Irritable bowel syndrome with diarrhea 1 Attention deficit disorder without hyperactivity documented as of this encounter (statuses as of 03/03/2024) Resolved Problems Problem Noted Date Diagnosed Date [...] as of this encounter (statuses as of 03/03/2024) Immunizations Name Administration Dates Next Due COVID-19 [...] on file Are you (or your family) ang eless or worried that you might be [...] encounter Miscellaneous Notes * Telephone Encounter - Santos Pa RPh - 03/03/2024 5:28 AM EDT Signed Prescriptions: Disp Refills Omeprazole 20 MG Oral Capsule Delayed Rele*90 Cap*1 Sig: TAKE 1 CAPSULE BY MOUTH EVERY MORNINGAuthorizing Provider: JACLYN GAMBOA User: SANTOS PA * Telephone Encounter - Santos Pa RPh - 03/03/2024 5:27 AM EDT Per refill protocol patient needs magnesium and vitamin B-12 labs on file within the past 2 years while using PPIs. Lab work ordered. Patient may obtain with next routine labs. Thank you, Santos Pa PharmD, [place] Clinical Pharmacist [facility] 03/03/24 5:28 AM [phone] documented in this encounter Plan of Treatment Upcoming Encounters Date Type Department Care Team (Late st Contact Info) Description 06/17/2024 9:00 AM EDT Office Visit [facility] [address] [place] [address] Jaclyn Gamboa MD [address] [place] [address] Health Maintenance Due Date Last Done Comments [...] this encounter Medical Devices Implanted Type Area Test Center Administrator Device Identifier Shelf Expiration Date Model / Serial / Lot Graft Bone Cartilage Costl 6cm - [id number] Implanted:Qty: 1 on 06/22/2016 [place] [facility] [place] Nose [employer] 04/16/2021 [id number] / / documented as of this encounter Visit Diagnoses Diagnosis Gastroesophageal reflux disease without esophagitis Esophageal reflux documented in this encounter Advance Directives * Full Code (Latest Code Status on File) Date Activated Date Inactivated Comments 07/24/2015 7:58 AM 07/24/2015 3:54 PM This order reflects the patients wishes and were consensually agreed upon. Care Teams Horticulturalist Relationship Specialty Start Date End Date Jaclyn Gamboa MD [address] [facility] [place] [address] PCP - General Family Medicine 03/23/21 documented as of this encounter
--- OUTSIDE RECORDS SUMMARY | 2024-03-28 10:20 | External Medical Summary | Summary of Care ---
Author Name Unknown Organization [facility] Address [address] [place] [address] Phone [phone] Care Team Providers Care Claims Analyst Name Role Phone Keith Cross MD Primary Care Provider [phone] Encounter Details Date Type Department Care Team (Late st Contact Info) Description 02/12/2024 Orders Only Family Practice [facility] [address] [place] [facility] [place] [address] Keith Cross MD [address] [place] [address] Allergies Active Allergy Reactions Criticality Noted Date Comments Tramadol Hcl 12/08/2011 Gi upset documented as of this encounter (statuses as of 02/12/2024) Medications Medication Sig Dispensed Refills Start Date [...] 120 Capsule 5 06/19/2023 Active Neomycin-Polymyxi n-HC 3.5-62472-1 Otic Solution Administer 4 Drops into ears [...] EVERY MORNING 90 Capsule 1 09/14/2023 Active Scopolamine 1 MG/3DAYS Transdermal Patch 72 [...] for Other (dizziness). 30 Tablet 12/12/2023 Active Vitamin D (Ergocalciferol) 26844 UNIT Oral Capsule Take 1 Capsule by mouth once a week. 12 Capsule 12/26/2023 Active Apixaban 5 MG Oral Tablet (Eliquis) TAKE 1 TABLET BY MOUTH TWO TIMES DAILY 180 Tablet 01/25/2024 Active Gabapentin 300 MG Oral Capsule (Neurontin) TAKE 1 CAPSULE BY MOUTH EVERY MORNING, TAKE 1 CAPSULE AT NOON AND TAKE 1 CAPSULE BY MOUTH AT BEDTIME 90 Capsule 5 02/06/2024 Active documented as of this encounter (statuses as of 02/12/2024) Active Problems Problem Noted Date Diagnosed Date Depression with anxiety 06/16/2023 Personal history of DVT (deep vein thrombosis) 0 04/09/2021 History of pulmonary embolism 04/09/2021 ALS (amyotrophic lateral sclerosis) 05/02/2016 Orthostatic hypotension 12/18/2015 GERD (gastroesophageal reflux disease) 6 Irritable bowel syndrome with diarrhea 1 Attention deficit disorder without hyperactivity documented as of this encounter (statuses as of 02/12/2024) Resolved Problems Problem Noted Date Diagnosed Date [...] as of this encounter (statuses as of 02/12/2024) Immunizations Name Administration Dates Next Due COVID-19 [...] Care Team (Late st Contact Info) Description 02/14/2024 9:00 AM EDT Office Visit [facility] [address] [place] [address] Monica Morillo, PT [address] [place] [address] 06/17/2024 9:00 AM EDT Office Visit Family Practice [facility] [address] [place] [place] [address] Keith Cross MD [address] [place] [address] Health Maintenance Due Date Last Done Comments Hepatitis B (1 of 3 - 19+ 3-dose series) 1994 Lipid Panel 11/07/2017 11/07/2012 Cologuard 2020 Colonoscopy 2020 Colorectal Cancer Screening 2020 Fecal Occult Blood Test 2020 Sigmoidoscopy 2020 COVID-19 Vaccine ( - season) 2023 09/01/2021, 02/01/2021, 12/28/2020 DTaP,Tdap,and Td [...] this encounter Medical Devices Implanted Type Area Teller Coordinator Device Identifier Shelf Expiration Date Model / Serial / Lot Graft Bone Cartilage Costl 6cm - [id number] Implanted:Qty: 1 on 06/22/2016 by Any Tovar MD at [place] [facility] [place]/A: Nose [employer] 04/16/2021 [id number] / / documented as of this encounter Procedures Procedure Name Priority Date/Time Associated Diagnosis Comments UPPER ENDOSCOPY, OUTSIDE PROCEDURE Routine 02/09/2024 documented in this encounter Results * UPPER ENDOSCOPY, OUTSIDE PROCEDURE (02/09/2024) 02/09/2024 Shimon Solorzano DO GASTRO UPPER OUTSIDE LAB (SEE SCANNED REPORT) documented in this encounter Advance Directives * Full Code (Latest Code Status on File) Date Activated Date Inactivated Comments 07/24/2015 7:58 AM 07/24/2015 3:54 PM This order reflects the patients wishes and were consensually agreed upon. Care Teams Claims Analyst Relationship Specialty Start Date End Date Keith Cross MD [address] [place] [address] PCP - General Family Medicine 03/23/21 documented as of this encounter
--- OUTSIDE RECORDS SUMMARY | 2024-03-28 10:20 | External Medical Summary | Summary of Care ---
Author Name Unknown Organization [facility] Address [address] [place] [address] Phone [phone] Care Team Providers Care Fagoting Machine Operator Name Role Phone Jaclyn Gamboa MD Primary Care Provider [phone] Reason for Visit * Reason Comments eRx-Medication Refill Encounter Details Date Type Department Care Team (Late st Contact Info) Description 02/03/2024 Refill Family Practice [facility] [address] [place] [address] Jaclyn Gamboa MD [address] [place] [address] Allergies Active Allergy Reactions Criticality Noted Date Comments Tramadol Hcl 12/08/2011 Gi upset documented as of this encounter (statuses as of 02/06/2024) Medications Medication Sig Dispensed Refills Start Date [...] 120 Capsule 5 3 Active Neomycin-Polymyx in-HC 3.5-49142-1 Otic Solution Administer 4 Drops into ears [...] 30 Tablet 4 Active Vitamin D (Ergocalciferol) 75596 UNIT Oral Capsule Take 1 Capsule by mouth once a week. 12 Capsule 4 Active Apixaban 5 MG Oral Tablet (Eliquis) TAKE 1 TABLET BY MOUTH TWO TIMES DAILY 180 Tablet 4 Active Gabapentin 300 MG Oral Capsule (Neurontin) TAKE 1 CAPSULE BY MOUTH EVERY MORNING, TAKE 1 CAPSULE AT NOON AND TAKE 1 CAPSULE BY MOUTH AT BEDTIME 90 Capsule 5 4 Active Gabapentin 300 MG Oral Capsule (Neurontin) Take 1 Capsule by mouth in the morning and 1 Capsule at noon and 1 Capsule before bedtime. 90 Capsule 5 3 02/06/20 24 Discontinued documented as of this encounter (statuses as of 02/06/2024) Active Problems Problem Noted Date Diagnosed Date Depression with anxiety 06/16/2023 Personal history of DVT (deep vein thrombosis) 0 04/09/2021 History of pulmonary embolism 04/09/2021 ALS (amyotrophic lateral sclerosis) 05/02/2016 Orthostatic hypotension 12/18/2015 GERD (gastroesophageal reflux disease) 6 Irritable bowel syndrome with diarrhea 1 Attention deficit disorder without hyperactivity documented as of this encounter (statuses as of 02/06/2024) Resolved Problems Problem Noted Date Diagnosed Date [...] as of this encounter (statuses as of 02/06/2024) Immunizations Name Administration Dates Next Due COVID-19 [...] Telephone Encounter - Jaclyn Gamboa MD - 02/06/2024 11:30 AM EDTSigned Prescriptions: Disp Refills Gabapentin 300 MG Oral Capsule (Neurontin) 90 Cap*5 Sig: TAKE 1 CAPSULE BY MOUTH EVERY MORNING, TAKE 1 CAPSULE AT NOON AND TAKE 1 CAPSULE BY MOUTH AT BEDTIME Authorizing Provider: JACLYN GAMBOA * Telephone Encounter - Carolyn Abdullahi LPN - 02/06/2024 10:32 AM EDTPending Prescriptions: Disp Refills Gabapentin 300 MG Oral Capsule [Pharmacy M*90 Cap*5 Sig: TAKE 1 CAPSULE BY MOUTH EVERY MORNING, TAKE 1 CAPSULE AT NOON AND TAKE 1 CAPSULE BY MOUTH AT BEDTIME * Telephone Encounter - Carolyn Abdullahi LPN - 02/06/2024 10:31 AM EDT Did you pend patient's preferred pharmacy and medication before forwarding?yes Pharmacy: [facility] [id number] [place] Pending Prescriptions: Disp Refills Gabapentin 300 MG Oral Capsule (Neurontin*90 Cap*5 Sig: TAKE 1 CAPSULE BY MOUTH EVERY MORNING, TAKE 1 CAPSULE AT NOON AND TAKE 1 CAPSULE BY MOUTH AT BEDTIME Last Visit: 08/23/2023 (in office), 11/27/2023 (telemedicine) Next Visit: 06/17/2024 If no future appointments scheduled, and last appointment is greater than a year ago, please schedule patient for a follow-up appointment Last date the medication was ordered: 08/23/2024 Is this request for a controlled substance?No [...] 09:32 AM ALT 47 09/17/2019 03:35 PM * Telephone Encounter - LexaGloria - 02/03/2024 1:49 PM EDTPending Prescriptions: Disp Refills Gabapentin 300 MG Oral Capsule [Pharmacy M*90 Cap*5 Sig: TAKE 1CAPSULE BY MOUTH EVERY MORNING, TAKE 1 CAPSULE AT NOON AND TAKE 1 CAPSULE BY MOUTH AT BEDTIME------- documented in this encounter Plan of Treatment Upcoming Encounters Date Type Department Care Team (Late st Contact Info) Description 02/14/2024 9:00 AM EDT Office Visit [facility] [address] [place] [address] Monica Morillo, PT [address] [place] [address] 06/17/2024 9:00 AM EDT Office Visit Family Practice [facility] [address] [place] [address] Jaclyn Gamboa MD [address] [place] [address] Health Maintenance Due Date Last Done Comments [...] this encounter Medical Devices Implanted Type Area School Age Program Associate Device Identifier Shelf Expiration Date Model / Serial / Lot Graft Bone Cartilage Costl 6cm - [id number] Implanted:Qty: 1 on 06/22/2016 by Any Tovar MD at [place] [facility] [place] N/A: Nose [employer] 04/16/2021 [id number] / / documented as of this encounter Advance Directives * Full Code (Latest Code Status on File) Date Activated Date Inactivated Comments 07/24/2015 7:58 AM 07/24/2015 3:54 PM This order reflects the patients wishes and were consensually agreed upon. Care Teams Fagoting Machine Operator Relationship Specialty Start Date End Date Jaclyn Gamboa MD [address] [facility] [place] [address] PCP - General Family Medicine 03/23/21 documented as of this encounter
--- OUTSIDE RECORDS SUMMARY | 2024-03-28 10:20 | External Medical Summary | Summary of Care ---
Author Name Unknown Organization [facility] Address [address] [place] [address] Phone [phone] Care Team Providers Care Plastic Sheets Supervisor Name Role Phone Keith Cross MD Primary Care Provider [phone] Reason for Visit * Reason Onset Date Comments Appointment 11/23/2023 Encounter Details Date Type Department Care Team (Late st Contact Info) Description 11/23/2023 Telephone Family Practice [facility] [address] [facility] [place] [address] Keith Cross MD [address] [facility] [place] [place] [address] Appointment Allergies Active Allergy Reactions Criticality Noted Date Comments Tramadol Hcl 12/08/2011 Gi upset documented as of this encounter (statuses as of 02/22/2024) Medications Medication Sig Dispensed Refills Start Date End Date Status escitalopram (LEXAPRO) 10 MG Tablet Take 2 Tablets by mouth in the morning. 04/28/2016 Active Amphetamine-Dextro amphetamine 30 MG Tablet [...] 120 Capsule 5 06/19/2023 Active Neomycin-Polymyxin -HC 3.5-53506-5 Otic Solution Administer 4 Drops into ears [...] hours as needed for Anxiety. 11/21/2023 Active documented as of this encounter (statuses as of 02/22/2024) Active Problems Problem Noted Date Diagnosed Date Depression with anxiety 06/16/2023 Personal history of DVT (deep vein thrombosis) 0 04/09/2021 History of pulmonary embolism 04/09/2021 ALS (amyotrophic lateral sclerosis) 05/02/2016 Orthostatic hypotension 12/18/2015 GERD (gastroesophageal reflux disease) 6 Irritable bowel syndrome with diarrhea 1 Attention deficit disorder without hyperactivity documented as of this encounter (statuses as of 02/22/2024) Resolved Problems Problem Noted Date Diagnosed Date [...] as of this encounter (statuses as of 02/22/2024) Immunizations Name Administration Dates Next Due COVID-19 [...] encounter Miscellaneous Notes * Telephone Encounter - Stefan Lyles OSA - 11/23/2023 12:47 PM EDT Called and spoke to pt's , HD visit is switched to video and they are aware. * Telephone Encounter - Jewel Jerry OSA - 11/23/2023 11:56 AM EDT Pt's calling for pt. Pt would like his 11/26 at 11:[address] Cross made into a video visit. Pt has ALS and also has an occupational therapist coming around the same time that day. He thinkit will be too much moving around for him to come into office, too. Please call to confirm this can be done at [phone]. Thank you. documented in this encounter Plan of Treatment Upcoming Encounters Date Type Department Care Team (Late st Contact Info) Description 06/17/2024 9:00 AM EDT Office Visit Family Practice [facility] [address] [place] [address] Keith Cross MD [address] [place] [address] Health Maintenance Due Date Last Done Comments Hepatitis B (1 of 3 - 19+ 3-dose series) 1994 Lipid Panel 11/07/2017 11/07/2012 Cologuard 2020 Colonoscopy 2020 Colorectal Cancer Screening 2020 Fecal Occult Blood Test 2020 Sigmoidoscopy 2020 Depression Monitoring 02/25/2021 02/26/2020 COVID-19 Vaccine (4 - season) 2023 09/01/2021, 02/01/2021, 12/28/2020 DTaP,Tdap,and [...] this encounter Medical Devices Implanted Type Area Booky Device Identifier Shelf Expiration Date Model / Serial / Lot Graft Bone Cartilage Costl 6cm - [id number] Implanted:Qty: 1 on 06/22/2016 by Any Tovar MD at [place] [facility] [place] N/A: Nose [employer] 04/16/2021 [id number] / / documented as of this encounter Advance Directives * Full Code (Latest Code Status on File) Date Activated Date Inactivated Comments 07/24/2015 7:58 AM 07/24/2015 3:54 PM This order reflects the patients wishes and were consensually agreed upon. Care Teams Plastic Sheets Supervisor Relationship Specialty Start Date End Date Keith Cross MD [address] [facility] [place] [address] PCP - General Family Medicine 03/23/21 documented as of this encounter
--- OUTSIDE RECORDS SUMMARY | 2024-03-28 10:20 | External Medical Summary | Summary of Care ---
Author Name Unknown Organization [facility] Address [address] [place] [address] Phone [phone] Care Team Providers Care Farm Crew Member Name Role Phone Keith Cross MD Primary Care Provider [phone] Reason for Visit * Reason Onset Date Comments Hospital Follow-Up 02/19/2024 MARI Encounter Details Date Type Department Care Team (Late st Contact Info) Description 02/19/2024 Telephone Family Practice [facility] [address] [place] [facility] [place] [address] Keith Cross MD [address] [facility] [place] [address] Hospital Follow-Up (MARI) Allergies Active Allergy Reactions Criticality Noted Date Comments Tramadol Hcl 12/08/2011 Gi upset documented as of this encounter (statuses as of 02/19/2024) Medications Medication Sig Dispensed Refills Start Date [...] 120 Capsule 5 06/19/2023 Active Neomycin-Polymyxi n-HC 3.5-57456-5 Otic Solution Administer 4 Drops into ears [...] 30 Tablet 12/12/2023 Active Vitamin D (Ergocalciferol) 38734 UNIT Oral Capsule Take 1 Capsule by [...] as of this encounter (statuses as of 02/19/2024) Active Problems Problem Noted Date Diagnosed Date Depression with anxiety 06/16/2023 Personal history of DVT (deep vein thrombosis) 0 04/09/2021 History of pulmonary embolism 04/09/2021 ALS (amyotrophic lateral sclerosis) 05/02/2016 Orthostatic hypotension 12/18/2015 GERD (gastroesophageal reflux disease) 6 Irritable bowel syndrome with diarrhea 1 Attention deficit disorder without hyperactivity documented as of this encounter (statuses as of 02/19/2024) Resolved Problems Problem Noted Date Diagnosed Date [...] medical exam 11/07/2012 020 Overview: Sees Dr Nicole--[facility] Screening for cardiovascular condition 11/07/2012 05/22/2015 Nausea [...] as of this encounter (statuses as of 02/19/2024) Immunizations Name Administration Dates Next Due COVID-19 [...] Miscellaneous Notes * Telephone Encounter - Celeste Myers RN - 02/19/2024 8:20 AM EDT Transitions of Care Note Reason for Referral: Recent Admission Phone visit for follow up: Inpatient Hospitalization Admitted to: [facility], Date: 02/06/2024 Discharged to: [facility], Date: 02/16/2024 MARI call not indicated due to patient transferred to [facility] in [place]. documented in this encounter Plan of Treatment Upcoming Encounters Date Type Department Care Team (Late st Contact Info) Description 06/17/2024 9:00 AM EDT Office Visit [address] [place] [address] Keith Cross MD [address] [place] [address] Health Maintenance Due Date Last Done Comments [...] this encounter Medical Devices Implanted Type Area Computer Networker Device Identifier Shelf Expiration Date Model / Serial / Lot Graft Bone Cartilage Costl 6cm - [id number] Implanted:Qty: 1 on 06/22/2016 by Any Tovar MD at OR [facility] [place] N/A: Nose [employer] 04/16/2021 [id number] / / documented as of this encounter Advance Directives * Full Code (Latest Code Status on File) Date Activated Date Inactivated Comments 07/24/2015 7:58 AM 07/24/2015 3:54 PM This order reflects the patients wishes and were consensually agreed upon. Care Teams Farm Crew Member Relationship Specialty Start Date End Date Keith Cross MD [address] [place] [address] PCP - General Family Medicine 03/23/21 documented as of this encounter
--- OUTSIDE RECORDS SUMMARY | 2024-03-28 10:20 | External Medical Summary | Summary of Care ---
Author Name Unknown Organization [facility] Address [address] [place] [address] Phone [phone] Care Team Providers Care Pier Worker Name Role Phone Keith Cross MD Primary Care Provider [phone] Encounter Details Date Type Department Care Team (Late st Contact Info) Description 02/06/2024 Orders Only Family Practice [facility] [address] [place] [facility] [place] [address] Keith Cross MD [address] [facility] [place] [address] Allergies Active Allergy Reactions Criticality Noted Date [...] 120 Capsule 5 06/19/2023 Active Neomycin-Polymyxi n-HC 3.5-22105-5 Otic Solution Administer 4 Drops into ears [...] Take 119 g by mouth once. Active Gabapentin 300 MG Oral Capsule (Neurontin) [...] 30 Tablet 12/12/2023 Active Vitamin D (Ergocalciferol) 04976 UNIT Oral Capsule Take 1 Capsule by mouth once a week. 12 Capsule 12/26/2023 Active Apixaban 5 MG Oral Tablet (Eliquis) TAKE 1 TABLET BY MOUTH TWO TIMES DAILY 180 Tablet 01/25/2024 Active documented as of this encounter (statuses [...] Description 02/14/2024 9:00 AM EDT Office Visit [facility] [address] [place] [address] Monica Morillo, PT [address] [place] [address] 06/17/2024 9:00 AM EDT Office Visit Family Practice [facility] [address] [place] [address] Keith Cross MD [address] [place] [address] Health Maintenance Due Date Last Done Comments [...] this encounter Medical Devices Implanted Type Area Can Bander Operator Device Identifier Shelf Expiration Date Model / Serial / Lot Graft Bone Cartilage Costl 6cm - [id number] Implanted:Qty: 1 on 06/22/2016 by Any Tovar MD at OR [facility] [place] N/A: Nose [employer] 04/16/2021 [id number] / / documented as of this encounter Procedures Procedure Name Priority Date/Time Associated Diagnosis Comments OUTSIDE LAB-CORONAVIRUS (COVID-19) Routine 02/05/2024 documented in this encounter Results * OUTSIDE LAB-CORONAVIRUS (COVID-19) (02/05/2024) [id number] DE LAB NOT DETECTED NOT DETECTED OUTSIDE LAB (SEE SCANNED REPORT) 02/05/2024 History Per Patient LABORATORY OUTSIDE LAB (SEE SCANNED REPORT) documented in this encounter Advance Directives * Full Code (Latest Code Status on File) Date Activated Date Inactivated Comments 07/24/2015 7:58 AM 07/24/2015 3:54 PM This order reflects the patients wishes and were consensually agreed upon. Care Teams Pier Worker Relationship Specialty Start Date End Date Keith Cross MD [address] [place] [address] PCP - General Family Medicine 03/23/21 documented as of this encounter
[2024-03-28] MEDS: TUBE FEEDING WATER FLUSH PEG SCH (11:17)
[2024-03-28] MEDS: POTASSIUM CHLORIDE PWD 20 MEQ PACK GT SCH (11:18)
[2024-03-28] MEDS: NUTREN LIQD 2.0 1,000 ML BAG PEG SCH (11:24)
[2024-03-28] MEDS: ALBUT/IPRATROP 3MG/0.5MG NEB 3 ML VIAL NEB PRN (14:33)
--- NOTE | 2024-03-28 16:06 | Hospitalist Progress Note ---
Date of Service March 28, 2024 Assessment & Plan (1) Acute hypoxemic respiratory failure: Plan: 48-year-old male with past medical history significant for orthostatic hypotension, irritable bowel syndrome, GERD, ALS, attention deficit disorder without hyperactivity, history of DVT and PE, depression with anxiety who lives at home with his and wheelchair-bound who was recently in the hospital end of January with septic shock and right lower lung collapse and aspiration pneumonia and acute hypoxic respiratory failure s/p intubation and tracheostomy on 02/08/24 as he was unable to be extubated in setting of progressive ALS and and s/p PEG tube placement and did ok and was was discharged to LTAC in [place] and was discharged home from LTAC yesterday and after coming home complained of chest pain and also suction machine was not working and everything was not set up properly and got worried and brought him here. Currently no chest pain. Blood pressure somewhat soft. Has a lot of cough. Was feeling a lot of anxiety and required Ativan. Somewhat drowsy. But able to answer with nodding head and in the room helped with H&P. As per no fevers. No nausea/ vomiting. Currently nutrition is from PEG tube. As per at LTAC swallow evaluation was done but patient did not do good and was advised everything by PEG tube. Somewhat constipated. Micturating okay. No abdominal pain. Aspiration pneumonia CT scan showing no PE, extensive bilateral dependent aspiration pneumonia left greater than right. Bilateral parapneumonic effusions. Received IV Vanco and Zosyn in er blood and sputum cultures are pending MRSA screen is negative and vancomycin has been discontinued appreciate pulmonary input and recommendation will continue with intravenous Zosyn for now likely to go for bronchoscopy tomorrow depending on clinical condition clinically little better has had palliative care encounter during his last admission and we will try to get another palliative opinion during this time Hypotension orthostatic hypotension received cautious amount of intravenous fluid will hold any fluid because of the bilateral pleural effusion has been on midodrine and will continue History of ADHD without hyperactivity depression with anxiety Anxiety and depression has had psychiatric evaluation during last admission will continue home clonazepam History of DVT and PE on Eliquis Nutritional status currently on tube feeds will consult nutrition GERD PPI DVT prophylaxis on Eliquis Disposition telemetry Full code. (2) Aspiration pneumonia: Plan: as above (3) ALS (amyotrophic lateral sclerosis): Plan: ALS with quadriplegia in and nonambulatory status BiPAP while sleeping at home s/p trach currently on vent (4) Tracheostomy dependence: Plan: on ventilatory support (5) Bilateral pleural effusion: (6) Quadriplegia: (7) Depression: Admission and Anticipated Discharge Date Admission Date: March 28, 2024 Subjective 03/28/2024 The patient was seen and examined in ICU he has significant complicated medical conditions including ALS and status post tracheostomy he was discharged from the LTAC facility in [place] 2 nights before was admitted with worsening respiratory failure and difficult to manage at home has been feeling little better since admission denies any acute distress during my examination Review of Systems Review of Systems: Unobtainable due to cognitive status and Other Physical Exam Physical Exam: lying in bed without any acute distress Constitutional: + ill appearing and + thin Eyes: PERRL, conjunctivae normal, anicteric sclerae ENMT: external ear and nose normal, oropharynx normal Neck: tracheostomy status Respiratory: + respiratory distress Auscultation: + diminished lung sounds and + crackles ( occasional crackles at the bases) Cardiovascular: Rate/Rhythm: regular rate and regular rhythm; not tachycardic Heart Sounds: normal S1 and normal S2; no murmur Extremities: + edema ( 1+ edema bilaterally) Gastrointestinal (Abdomen): Inspection/Auscultation: normal bowel sounds; abdomen not distended Percussion/Palpation: abdomen soft; abdomen nontender status post PEG tube Musculoskeletal: quadriplegic with flexural deformities involving the extremities Neurologic: alert and awake. nonverbal and quadriplegic Lymphatic: no cervical or axillary lymphadenopathy Results & Data Results & Data Vital Signs (Past 12 Hours) Vital Signs Temp Pulse Pulse Resp BP BP Pulse Ox 03/28/24 15:14 81 24 96 03/28/24 13:09 36.4 C 80 17 97/56 L 98 03/28/24 12:26 82/43 L 03/28/24 12:00 74 22 82/45 L 92 03/28/24 11:00 77 17 92/53 L 95 03/28/24 10:03 74 29 H 91/55 L 93 03/28/24 09:00 74 16 82/53 L 94 03/28/24 08:00 77 19 98/66 L 100 03/28/24 08:00 75 07/18/24 07:56 80 18 98 03/28/24 07:30 03/28/24 07:09 79 19 101/68 100 03/28/24 06:45 36.8 C 82 101/68 98 03/28/24 06:30 03/28/24 06:30 36.6 C 77 22 98/62 L 94 03/28/24 06:00 74 16 75/47 L 96 03/28/24 05:58 36.9 C 73 16 77/49 L 96 03/28/24 05:06 80 21 85/60 L 95 03/28/24 05:00 83 20 78/56 L 97 03/28/24 04:30 80 16 72/48 L 95 03/28/24 04:30 81 23 72/48 L 95 03/28/24 04:03 87 03/28/24 04:00 84 16 72/49 L 95 O2 Del Method O2 Flow Rate 03/28/24 15:14 Mechanical Vent 4 03/28/24 13:09 03/28/24 12:26 03/28/24 12:00 03/28/24 11:00 03/28/24 10:03 03/28/24 09:00 03/28/24 08:00 03/28/24 08:00 03/28/24 07:56 Mechanical Vent 3 03/28/24 07:30 BiPAP 03/28/24 07:09 03/28/24 06:45 BiPAP 3 03/28/24 06:30 BiPAP 3 03/28/24 06:30 CPAP 3 03/28/24 06:00 Mechanical Vent 3 03/28/24 05:58 Mechanical Vent 3 03/28/24 05:06 Mechanical Vent 3 03/28/24 05:00 Mechanical Vent 3 03/28/24 04:30 Mechanical Vent 3 03/28/24 04:30 Mechanical Vent 3 03/28/24 04:03 03/28/24 04:00 Mechanical Vent 3 Laboratory Results Short CBC 03/27/24 03/28/24 Range/Units 23:47 07:58 WBC 17.44 H 12.30 H (4.8-10.8) K/ul Hgb 10.5 L 8.3 L (14.0-18.0) g/dl Hct 33.9 L 26.9 L (42.0-52.0) % Plt Count 297 257 (130-400) K/uL BMP 03/27/24 03/28/24 23:47 07:58 Sodium 136 137 Potassium 3.5 3.1 L Chloride 96 L 102 Carbon Dioxide 32 28 BUN 13 13 Creatinine < 0.20 L < 0.20 L Glucose 146 H 102 H Calcium 9.2 8.8 Liver Function 03/27/24 Range/Units 23:47 Total Bilirubin 0.5 (0.2-1.0) mg/dl AST 23 (13-39) U/L ALT 22 (7-52) U/L Alkaline Phosphatase 99 (34-104) U/L Albumin 3.5 (3.4-5.0) gm/dl Medications Administered Current Inpatient Medications Albuterol (Albuterol 0.083% Nebu Soln 3 Ml Vial) 2.5 mg INH Q6H PRN; Protocol PRN Reason: Shortness Of Breath Or Wheezing Stop: 04/27/24 06:48 Albuterol (Albut/Ipratrop 3mg/0.5mg Neb 3 Ml Vial) 3 ml INH BIDR [facility]; Protocol Stop: 04/27/24 08:59 Last Admin: 03/28/24 07:38 Dose: 3 ml Albuterol (Albut/Ipratrop 3mg/0.5mg Neb 3 Ml Vial) 3 ml NEB Q4H PRN; Protocol PRN Reason: Shortness Of Breath Or Wheezing Stop: 04/27/24 06:48 Last Admin: 03/28/24 14:33 Dose: 3 ml Apixaban (Apixaban 5 Mg Tablet) 5 mg PO BID [facility] Stop: 04/27/24 08:59 Last Admin: 03/28/24 09:00 Dose: 5 mg Atropine Sulfate (Atropine Sulfate 1% Op Soln 5 Ml Btl) 1 drops OP TID [facility] Stop: 04/27/24 08:59 Last Admin: 03/28/24 13:34 Dose: 1 drops Clonazepam (Clonazepam 0.25 Mg Od Tab) 0.75 mg PO TID [facility] Stop: 04/27/24 08:59 Last Admin: 03/28/24 13:32 Dose: 0.75 mg Clonazepam (Clonazepam 0.5 Mg Tab) 0.5 mg PO TID PRN PRN Reason: Anxiety Stop: 04/27/24 06:48 Escitalopram Oxalate (Escitalopram Oxalate 10 Mg Tab) 30 mg PO QAM [facility] Stop: 04/27/24 08:59 Last Admin: 03/28/24 09:01 Dose: 30 mg Famotidine (Famotidine 20 Mg Tab) 20 mg PO HS [facility] Stop: 04/27/24 20:59 Fentanyl (Fentanyl 25 Mcg/Hr Tdsy) 1 patch TD Q72H [facility] Stop: 04/11/24 07:29 Last Admin: 03/28/24 07:59 Dose: 1 patch Gabapentin (Gabapentin 300 Mg Cap) 600 mg PO TID [facility] Stop: 04/27/24 08:59 Last Admin: 03/28/24 13:32 Dose: 600 mg Piperacillin Sod/Tazobactam (Sod 4.5 gm/ Dextrose) 100 mls @ 25 mls/hr IV Q8H [facility]; Protocol Stop: 04/04/24 07:59 Last Infusion: 03/28/24 13:09 Dose: Infused Lansoprazole (Lansoprazole 30 Mg Soltab) 30 mg NG QAM [facility] Stop: 04/27/24 08:59 Last Admin: 03/28/24 09:02 Dose: 30 mg Melatonin (Melatonin 3 Mg Tab) 3 mg PO [facility] Stop: 04/27/24 20:59 Midodrine (Midodrine Hcl 10 Mg Tab) 10 mg PO TID@0800,1200,1700 [facility] Stop: 04/27/24 08:59 Last Admin: 03/28/24 11:23 Dose: 10 mg Mirtazapine (Mirtazapine Tab 15 Mg Tab) 7.5 mg PO [facility] Stop: 04/27/24 20:59 Miscellaneous (Fentanyl Patch Remove & Waste) 1 each N/A Q3D [facility] Stop: 04/27/24 07:28 Last Admin: 03/28/24 07:58 Dose: 1 each Miscellaneous (Check Fentanyl Patch Placement) 1 each N/A QS [facility] Stop: 04/27/24 07:59 Last Admin: 03/28/24 09:00 Dose: 1 each Miscellaneous (Remove Transderm-Scop Patch) 1 each N/A Q72H [facility] Stop: 04/27/24 07:58 Last Admin: 03/28/24 07:59 Dose: 1 each Miscellaneous (Check Scopolamine Patch Placement) 1 each N/A QS [facility] Stop: 04/27/24 07:59 Last Admin: 03/28/24 09:00 Dose: 1 each Nitroglycerin (Nitroglycerin Sl 0.4 Mg/Tab Tab) 0.4 mg SL Q5M PRN PRN Reason: Chest Pain Stop: 04/27/24 06:48 Nutritional Formula (Nutren Liqd 2.0 1,000 Ml Bag) 1,000 ml PEG .See Protocol [facility]; Protocol Stop: 04/27/24 10:44 Last Admin: 03/28/24 11:24 Dose: 1,000 ml Olanzapine (Olanzapine 5 Mg Tablet) 5 mg PO DAILY [facility] Stop: 04/27/24 08:59 Last Admin: 03/28/24 09:01 Dose: 5 mg Oxycodone HCl (Oxycodone Hcl Ir 5 Mg Tab (Immediate Release)) 7.5 mg PEG Q4H PRN PRN Reason: Pain, Moderate Stop: 04/11/24 06:48 Last Admin: 03/28/24 13:32 Dose: 7.5 mg Potassium Chloride (Potassium Chloride Pwd 20 Meq Pack) 20 meq GT DAILY [facility] Stop: 04/27/24 10:14 Last Admin: 03/28/24 11:18 Dose: 20 meq Scopolamine (Scopolamine 1 Mg/72 Hr Tdsy Patch) 1 patch TD Q3D@0800 [facility] Stop: 04/27/24 07:59 Last Admin: 03/28/24 09:00 Dose: 1 patch Sodium Chloride (Sodium Chlor 7% 4 Ml Neb) 4 ml NEB BIDR [facility] Stop: 04/27/24 18:59 Sterile Water (Tube Feeding Water Flush) 30 ml PEG Q4H [facility] Stop: 04/27/24 10:44 Last Admin: 03/28/24 15:24 Dose: 30 ml (2) Aspiration pneumonia Aspiration pneumonia type: unspecified Laterality: bilateral Lung location: unspecified part of lung Qualified Code(s): J69.0 - Pneumonitis due to inhalation of food and vomit
[2024-03-28] MEDS: ALBUMIN 5% 250 ML IV ONE ×2 (16:37→22:52)
[2024-03-28] MEDS: SODIUM CHLOR 7% 4 ML NEB NEB SCH (20:06)
[2024-03-28] MEDS: MELATONIN 3 MG TAB PO SCH (20:54)
[2024-03-28] MEDS: MIRTAZAPINE TAB 15 MG TAB PO SCH (20:55)
[2024-03-28] MEDS ORDERED: FAMOTIDINE 20 MG TAB PO SCH (21:00)
[2024-03-28] MEDS: FAMOTIDINE 20 MG TAB PO SCH (21:31)
[2024-03-29] MEDS: fentaNYL citrate PF 100 MCG/2 ML VIAL IM ONE (11:30)
[2024-03-29] MEDS: MIDAZOLAM HCL 5 MG/ML 2ML VIAL IV STA (11:30)
--- NOTE | 2024-03-29 14:46 | XRay Report ---
[facility] SINGLE VIEW CHEST CLINICAL HISTORY: Follow-up pleural effusions. FINDINGS: 2 AP, portable, upright chest radiographs are compared to study dated 03/27/2024 and correla sruthi with chest CT dated 03/28/2024. The examination is degraded by portable technique and patient rota tion. A tracheostomy is in place. The cardiomediastinal silhouette is unremarkable. Chronic intersti tial thickening is similar to previous. There are layering pleural effusions with bibasilar consolida tion. No pneumothorax is seen. The skeletal structures are osteopenic. The bony thorax is grossly int act. IMPRESSION: 1. There are layering pleural effusions with bibasilar consolidation. The appearance favors pneumonia /aspiration pneumonitis. Clinical correlation will be required and radiographic follow-up to resoluti on is recommended. 2. A tracheostomy is in place. ACT 112: Negative or not required by law. Electronically signed by: Jose Ellington M.D. 03/29/2024 10:16 AM
--- NOTE | 2024-03-29 15:31 | Procedure Note ---
Procedure Note: Bronchoscopy Procedure verbal consent obtained from patient. time out performed prior to procedure. bilateral washing completed of lower lobes via tracheostomy. thick mucous suctioned out of lower lobes. washings sent for cultures and cell counts. [facility] [place] Codes (Charges) Pulmonary/Thoracic Procedure 1: Pulmonary and Thoracic: 63603 Dx bronchoscopy/wash
[2024-03-29 18:01] LABS: Albumin Level 3.1 gm/dl (3.4-5.0); Anion Gap 7 (3-11); Bilirubin,Total 0.4 mg/dl (0.2-1.0); Calcium 8.9 mg/dl (8.6-10.3); Carbon Dioxide 28 mmol/L (21-32); Chloride 102 mmol/L (98-107); Potassium 3.1 mmol/L (3.5-5.1); Sodium 137 mmol/L (136-145)
[2024-03-29 18:04] LABS: Alanine Aminotransferase 15 U/L (7-52); Aspartate Aminotransferase 14 U/L (13-39); Glucose 86 mg/dl (70-99(Fasting))
[2024-03-29 18:05] LABS: Albumin Globulin Ratio 1.1 (0.9-2); Alkaline Phosphatase 63 U/L (34-104); Globulin 2.9 gm/dl (2.5-4.0)
[2024-03-29] MEDS: MIDAZOLAM HCL 5 MG/ML 2ML VIAL ONE (18:16)
[2024-03-29] MEDS: fentaNYL citrate PF 100 MCG/2 ML VIAL ONE (18:17)
[2024-03-29 18:40] LABS: Blood Urea Nitrogen 11 mg/dl (6-23); Creatinine Clr Calc Pharmacy 474.7 ml/min; Est GFR (African American) > 150.0; Est GFR (Non-African American) > 150.0
[2024-03-29 19:18] LABS: Magnesium 1.7 mg/dl (1.7-2.4)
[2024-03-29 21:05] LABS: Basophils # (auto) 0.04 K/uL (0.00-0.20); Basophils % (auto) 0.6 %; Eosinophils # (auto) 0.12 K/uL (0.00-0.50); Eosinophils % (auto) 1.7 %; Hematocrit (blood only) 24.3 % (42.0-52.0); Hemoglobin 7.8 g/dl (14.0-18.0); Immature Granulocytes # (auto) 0.03 K/uL (0.01-0.20); Immature Granulocytes % (auto) 0.4 %; Lymphocytes # (auto) 0.88 K/uL (1.20-3.40); Lymphocytes % (auto) 12.7 %; Mean Corpuscular Hgb Conc 32.1 g/dL (32.0-36.0); Mean Corpuscular Volume 87.1 fL (80.0-100.0); Monocytes # (auto) 0.64 K/uL (0.11-0.59); Monocytes % (auto) 9.3 %; Neutrophils % (auto) 75.3 %; Platelet Count 227 K/uL (130-400); RDW Coefficient of Variation 13.7 % (11.5-14.5); RDW Standard Deviation 43.6 fL (36.4-46.3); Red Blood Count 2.79 M/uL (4.70-6.10); White Blood Count 6.91 K/ul (4.8-10.8)
[2024-03-29 21:10] LABS: Echinocytes 1+
[2024-03-30 02:21] LABS: Fluid Mono/Macrophage 10 %; Lymphocyte Body Fluid Man 1 %; Neutrophil Body Fluid Man 89 %
[2024-03-30 04:55] LABS: Anion Gap 7 (3-11); Blood Urea Nitrogen 10 mg/dl (6-23); Calcium 8.8 mg/dl (8.6-10.3); Carbon Dioxide 29 mmol/L (21-32); Chloride 102 mmol/L (98-107); Creatinine Clr Calc Pharmacy 474.7 ml/min; Est GFR (African American) > 150.0 ml/min; Est GFR (Non-African American) > 150.0 ml/min; Glucose 120 mg/dl (70-99(Fasting)); Potassium 3.1 mmol/L (3.5-5.1); Sodium 138 mmol/L (136-145)
[2024-03-30] MEDS: POTASSIUM CHLORIDE 20 MEQ/15 ML UDC PEG STA (08:43)
--- NOTE | 2024-03-30 09:28 | XRay Report ---
XR chest 1V portable CLINICAL HISTORY: pneumonia TECHNIQUE: Single frontal radiograph of the chest was obtained. Comparison: Comparison is made to chest radiograph 03/29/2024 FINDINGS: Tracheostomy tube is seen. The cardiomediastinal silhouette is normal. Bilateral lower lung predomina nt airspace opacities are seen. No evidence of pleural effusion or pneumothorax. IMPRESSION: Bilateral lower lung predominant airspace opacities which may represent atelectasis, pneumonia, and/o r aspiration. ACT 112: Negative or not required by law. Electronically signed by: Keny Cantu M.D. 03/30/2024 9:26 AM
[2024-03-30] MEDS ORDERED: SCOPOLAMINE 1 MG/72 HR TDSY PATCH TD SCH (10:30)
[2024-03-30] MEDS: ALBUT/IPRATROP 3MG/0.5MG NEB 3 ML VIAL NEB SCH ×2 (11:22→20:22)
--- NOTE | 2024-03-30 11:50 | Pulmonology Progress Note ---
Date of Service March 30, 2024 Assessment & Plan (1) Aspiration pneumonia: Plan: Patient at risk for recurrent aspiration pneumonia due to poor cough mechanism from ALS. Continue percussive vest therapy 4 times a day and hypertonic saline twice daily. Continue frequent suctioning. Continue CoughAssist 4 times daily. Sputum cultures from 03/28/2024 with "moderate normal toro". Bronchoscopy cultures pending. Bronc washing the negative on Gram stain. Suspect negative cultures due to previous antibiotic use. Patient most definitely with bilateral aspiration pneumonia. Would recommend 3 weeks total of antibiotics. Can consider transitioning to Augmentin once discharged as long as cultures negative. Status post bronchoscopy 03/29/2024. Aspiration pneumonia type: unspecified Laterality: bilateral Lung location: unspecified part of lung Qualified Code(s): J69.0 - Pneumonitis due to inhalation of food and vomit (2) Bilateral pleural effusion: Plan: Discontinue IV fluids. Suspect element of low oncotic pressure leading to dependent pleural effusions bilaterally. (3) ALS (amyotrophic lateral sclerosis): Plan: Recommend palliative care consultation for ongoing discussions regarding goals of care as the patient remains full code. (4) GERD (gastroesophageal reflux disease): Plan: Recommend continued antireflux medications. (5) Tracheostomy dependence: Plan: Patient is fully dependent on ventilator and tracheostomy. Will continue ventilator. Plan Thanks for the consult. Will follow. Admission and Anticipated Discharge Date Admission Date: March 28, 2024 Subjective Patient seen examined. Resting comfortably. Feels better today than yesterday. Minimal O2 requirements. Remains on ventilator settings as previous. Review of Systems Review of Systems: All systems reviewed & are unremarkable except as noted in HPI & below Physical Exam Physical Exam: Constitutional: Patient appears to be of their stated age. Patient is in no apparent distress. Patient is well-developed. Eyes: Pupils are equal round and reactive to light. Conjunctivae are normal. Anicteric sclera. Ears nose, mouth and throat: Tracheostomy in place. Neck: Trachea is midline. Visual inspection is normal. Respiratory: Coarse rhonchi bilaterally. Cardiovascular: Regular rate and rhythm. No murmurs. No edema. Gastrointestinal: Normal bowel sounds, soft, nontender and nondistended. No hepatosplenomegaly noted. Musculoskeletal: No cyanosis. Patient is able to move all extremities. Strength is 5 out of 5 in the upper and lower extremities. Skin: No rashes, warm dry and intact. Neurologic: No obvious focal neurological deficits seen. Psychiatric: Alert and oriented x3 with a euthymic affect. Results & Data Results & Data Vital Signs (Past 12 Hours) Vital Signs Temp Pulse Pulse Resp BP BP Pulse Ox 03/30/24 08:50 37 C 68 17 98/63 L 96 03/30/24 08:00 91 H 03/30/24 07:18 82 20 96 03/30/24 02:39 36.6 C 73 14 88/51 L 81/50 L 97 03/30/24 00:59 98 03/30/24 00:00 80 O2 Del Method O2 Flow Rate 03/30/24 08:50 Other 03/30/24 08:00 03/30/24 07:18 Mechanical Vent 3 03/30/24 02:39 Mechanical Vent 03/30/24 00:59 Mechanical Vent 3 03/30/24 00:00 PG Care Time/CCT Total # of Minutes Spent Total Time Spent with Patient: Total time spent is greater than 50% in coordination of care (as documented) at patient's floor/unit and/or counseling patient: Coding Level of Care Code 39108 SUB INP/OBS CARE 2/35MIN Diagnoses Aspiration pneumonia J69.0 Aspiration pneumonia type: unspecified Laterality: bilateral Lung location: unspecified part of lung Bilateral pleural effusion J90 ALS (amyotrophic lateral sclerosis) G12.21 GERD (gastroesophageal reflux disease) K21.9 Tracheostomy dependence Z93.0
--- NOTE | 2024-03-30 12:06 | Hospitalist Progress Note ---
Date of Service March 30, 2024 Assessment & Plan (1) Acute hypoxemic respiratory failure: Plan: 48-year-old male with past medical history significant for orthostatic hypotension, irritable bowel syndrome, GERD, ALS, attention deficit disorder without hyperactivity, history of DVT and PE, depression with anxiety who lives at home with his and wheelchair-bound who was recently in the hospital end of January with septic shock and right lower lung collapse and aspiration pneumonia and acute hypoxic respiratory failure s/p intubation and tracheostomy on 02/08/24 as he was unable to be extubated in setting of progressive ALS and and s/p PEG tube placement and did ok and was was discharged to LT[facility] in [place] and was discharged home from LTAC yesterday and after coming home complained of chest pain and also suction machine was not working and everything was not set up properly and got worried and brought him here. Currently no chest pain. Blood pressure somewhat soft. Has a lot of cough. Was feeling a lot of anxiety and required Ativan. Somewhat drowsy. But able to answer with nodding head and in the room helped with H&P. As per no fevers. No nausea/ vomiting. Currently nutrition is from PEG tube. As per at LTAC swallow evaluation was done but patient did not do good and was advised everything by PEG tube. Somewhat constipated. Micturating okay. No abdominal pain. Aspiration pneumonia CT scan showing no PE, extensive bilateral dependent aspiration pneumonia left greater than right. Bilateral parapneumonic effusions. Received IV Vanco and Zosyn in er blood and sputum cultures are pending MRSA screen is negative and vancomycin has been discontinued appreciate pulmonary input and recommendation will continue with intravenous Zosyn for now likely to go for bronchoscopy tomorrow depending on clinical condition has had limited bronchoscopy yesterday and the lab urgent did not show any significant growth a few of the tests like AFB and fungal cultures are pending sputum and blood cultures are negative so far likely to be on Augmentin on discharge to finish the course of antibiotic Hypotension orthostatic hypotension received cautious amount of intravenous fluid will hold any fluid because of the bilateral pleural effusion has been on midodrine and will continue blood pressure has been on the lower side at 98/63 ALS- quadriplegia in the setting of ALS and nonambulatory status On BiPAP while sleeping at home Goals of Care discussion as above -s/p tracheostomy on 02/07 -PEG tube to be placed by GI unsuccessful, surgery consulted for placement -per Surgery, not a surgical candidate while on pressors -s/p PEG placement by general Surgery on 02/12 has been tolerating PEG tube feeding History of ADHD without hyperactivity depression with anxiety Anxiety and depression has had psychiatric evaluation during last admission will continue home clonazepam no acute issues with delirium History of DVT and PE on Eliquis Nutritional status currently on tube feeds will consult nutrition GERD PPI DVT prophylaxis on Eliquis Disposition telemetry Full code. will discuss with the and likely discharge in a day or 2 (2) Aspiration pneumonia: Plan: as above (3) ALS (amyotrophic lateral sclerosis): Plan: ALS with quadriplegia in and nonambulatory status BiPAP while sleeping at home s/p trach currently on vent (4) Tracheostomy dependence: Plan: on ventilatory support (5) Bilateral pleural effusion: (6) Quadriplegia: (7) Depression: Admission and Anticipated Discharge Date Admission Date: March 28, 2024 Subjective 03/28/2024 The patient was seen and examined in ICU he has significant complicated medical conditions including ALS and status post tracheostomy he was discharged from the LTAC facility in [place] 2 nights before was admitted with worsening respiratory failure and difficult to manage at home has been feeling little better since admission denies any acute distress during my examination 03/30/2024 the patient was seen and examined on 03/29/2024 and the progress note as in the paper chart the patient was seen and examined in ICU he is a status post bronchoscopy with clinical improvement of his condition he denies any significant symptoms and seems to be at his baseline Review of Systems Review of Systems: all systems reviewed and are unremarkable except as noted below Physical Exam Physical Exam: lying in bed without any acute distress Constitutional: + ill appearing and + thin Eyes: PERRL, conjunctivae normal, anicteric sclerae ENMT: external ear and nose normal, oropharynx normal Respiratory: + respiratory distress Auscultation: + diminished lung sounds and + crackles ( occasional crackles at the bases) Cardiovascular: Rate/Rhythm: regular rate and regular rhythm; not tachycardic Heart Sounds: normal S1 and normal S2; no murmur Extremities: + edema ( 1+ edema bilaterally) Gastrointestinal (Abdomen): Inspection/Auscultation: normal bowel sounds; abdomen not distended Percussion/Palpation: abdomen soft; abdomen nontender Neurologic: he is quadriplegic and nonverbal secondary to ALS Lymphatic: no cervical or axillary lymphadenopathy Results & Data Results & Data Vital Signs (Past 12 Hours) Vital Signs Temp Pulse Pulse Resp BP BP Pulse Ox 03/30/24 08:50 37 C 68 17 98/63 L 96 03/30/24 08:00 91 H 03/30/24 07:18 82 20 96 03/30/24 02:39 36.6 C 73 14 88/51 L 81/50 L 97 03/30/24 00:59 98 03/30/24 00:00 80 O2 Del Method O2 Flow Rate 03/30/24 08:50 Other 03/30/24 08:00 03/30/24 07:18 Mechanical Vent 3 03/30/24 02:39 Mechanical Vent 03/30/24 00:59 Mechanical Vent 3 03/30/24 00:00 Laboratory Results Short CBC 03/29/24 Range/Units 04:58 WBC 6.91 (4.8-10.8) K/ul Hgb 7.8 L (14.0-18.0) g/dl Hct 24.3 L (42.0-52.0) % Plt Count 227 (130-400) K/uL BMP 03/29/24 03/30/24 04:53 04:19 Sodium 137 138 Potassium 3.1 L 3.1 L Chloride 102 102 Carbon Dioxide 28 29 BUN 11 10 Creatinine < 0.20 L < 0.20 L Glucose 86 120 H Calcium 8.9 8.8 Liver Function 03/29/24 Range/Units 04:53 Total Bilirubin 0.4 (0.2-1.0) mg/dl AST 14 (13-39) U/L ALT 15 (7-52) U/L Alkaline Phosphatase 63 (34-104) U/L Albumin 3.1 L (3.4-5.0) gm/dl Medications Administered Current Inpatient Medications Albuterol (Albut/Ipratrop 3mg/0.5mg Neb 3 Ml Vial) 3 ml NEB BIDR [facility]; Protocol Stop: 04/29/24 18:59 Apixaban (Apixaban 5 Mg Tablet) 5 mg PO BID [facility] Stop: 04/27/24 08:59 Last Admin: 03/28/24 09:00 Dose: 5 mg Atropine Sulfate (Atropine Sulfate 1% Op Soln 5 Ml Btl) 1 drops OP TID [facility] Stop: 04/27/24 08:59 Last Admin: 03/30/24 09:11 Dose: 1 drops Clonazepam (Clonazepam 0.25 Mg Od Tab) 0.75 mg PO TID [facility] Stop: 04/27/24 08:59 Last Admin: 03/30/24 08:43 Dose: 0.75 mg Clonazepam (Clonazepam 0.5 Mg Tab) 0.5 mg PO TID PRN PRN Reason: Anxiety Stop: 04/27/24 06:48 Escitalopram Oxalate (Escitalopram Oxalate 10 Mg Tab) 30 mg PO QAM [facility] Stop: 04/27/24 08:59 Last Admin: 03/30/24 08:39 Dose: 30 mg Famotidine (Famotidine 20 Mg Tab) 20 mg PO HS [facility] Stop: 04/27/24 20:59 Last Admin: 03/29/24 20:10 Dose: 20 mg Fentanyl (Fentanyl 25 Mcg/Hr Tdsy) 1 patch TD Q72H [facility] Stop: 04/11/24 07:29 Last Admin: 03/28/24 07:59 Dose: 1 patch Gabapentin (Gabapentin 300 Mg Cap) 600 mg PO TID [facility] Stop: 04/27/24 08:59 Last Admin: 03/30/24 08:39 Dose: 600 mg Piperacillin Sod/Tazobactam (Sod 4.5 gm/ Dextrose) 100 mls @ 25 mls/hr IV Q8H [facility]; Protocol Stop: 04/04/24 07:59 Last Admin: 03/30/24 08:38 Dose: 25 mls/hr Lansoprazole (Lansoprazole 30 Mg Soltab) 30 mg NG QAM [facility] Stop: 04/27/24 08:59 Last Admin: 03/30/24 08:39 Dose: 30 mg Melatonin (Melatonin 3 Mg Tab) 3 mg PO HS [facility] Stop: 04/27/24 20:59 Last Admin: 03/29/24 20:10 Dose: 3 mg Midodrine (Midodrine Hcl 10 Mg Tab) 10 mg PO TID@0800,1200,1700 [facility] Stop: 04/27/24 08:59 Last Admin: 03/30/24 08:38 Dose: 10 mg Mirtazapine (Mirtazapine Tab 15 Mg Tab) 7.5 mg PO HS [facility] Stop: 04/27/24 20:59 Last Admin: 03/29/24 20:09 Dose: 7.5 mg Miscellaneous (Fentanyl Patch Remove & Waste) 1 each N/A Q3D [facility] Stop: 04/27/24 07:28 Last Admin: 03/28/24 07:58 Dose: 1 each Miscellaneous (Check Fentanyl Patch Placement) 1 each N/A QS [facility] Stop: 04/27/24 07:59 Last Admin: 03/30/24 08:40 Dose: 1 each Miscellaneous (Check Scopolamine Patch Placement) 1 each N/A QS [facility] Stop: 04/29/24 15:59 Miscellaneous (Remove Transderm-Scop Patch) 1 each N/A Q72H [facility] Stop: 05/03/24 10:44 Nitroglycerin (Nitroglycerin Sl 0.4 Mg/Tab Tab) 0.4 mg SL Q5M PRN PRN Reason: Chest Pain Stop: 04/27/24 06:48 Nutritional Formula (Nutren Liqd 2.0 1,000 Ml Bag) 1,000 ml PEG .See Protocol [facility]; Protocol Stop: 04/27/24 10:44 Last Admin: 03/28/24 11:24 Dose: 1,000 ml Oxycodone HCl (Oxycodone Hcl Ir 5 Mg Tab (Immediate Release)) 7.5 mg PEG Q4H PRN PRN Reason: Pain, Moderate Stop: 04/11/24 06:48 Last Admin: 03/30/24 01:09 Dose: 7.5 mg Potassium Chloride (Potassium Chloride Pwd 20 Meq Pack) 20 meq GT DAILY [facility] Stop: 04/27/24 10:14 Last Admin: 03/30/24 08:39 Dose: 20 meq Scopolamine (Scopolamine 1 Mg/72 Hr Tdsy Patch) 1 patch TD Q72H [facility] Stop: 04/30/24 10:29 Sodium Chloride (Sodium Chlor 7% 4 Ml Neb) 4 ml NEB BIDR [facility] Stop: 04/29/24 18:59 Sterile Water (Tube Feeding Water Flush) 30 ml PEG Q4H [facility] Stop: 04/27/24 10:44 Last Admin: 03/30/24 11:22 Dose: 30 ml (2) Aspiration pneumonia Aspiration pneumonia type: unspecified Laterality: bilateral Lung location: unspecified part of lung Qualified Code(s): J69.0 - Pneumonitis due to inhalation of food and vomit
[2024-03-30] MEDS: CHECK SCOPOLAMINE PATCH PLACEMENT SCH (16:02)
[2024-03-30] MEDS: SODIUM CHLOR 7% 4 ML NEB NEB SCH (20:07)
[2024-03-31] MEDS: MICONAZOLE NITRATE POWDER 85 GM EXT PRN (04:50)
--- NOTE | 2024-03-31 07:31 | Critical Care Progress Note ---
Date of Service March 31, 2024 Assessment & Plan (1) Aspiration pneumonia: (2) Bilateral pleural effusion: (3) ALS (amyotrophic lateral sclerosis): (4) GERD (gastroesophageal reflux disease): (5) Tracheostomy dependence: Plan -- Aspiration pneumonia Status post bronchoscopy 03/29/2024. Patient at risk for recurrent aspiration pneumonia due to poor cough mechanism from ALS. Continue percussive vest therapy 4 times a day and hypertonic saline twice daily. Continue frequent suctioning. Continue CoughAssist 4 times daily. Sputum cultures from 03/28/2024 with "moderate normal toro". S/p bronchoscopy 03/29/2024, bronchoscopy cultures negative to date Suspect negative cultures due to previous antibiotic use. Would recommend full 10-21 days of antibiotics. Can consider Augmentin --Trach dependent Patient is fully dependent on ventilator and tracheostomy. Will continue ventilator. -- Bilateral pleural effusion Small Strict in and out Plan: Continue with antibiotics. Would recommend antibiotics for total duration of 14-21 days Recommended getting a chest x-ray after the course of antibiotics is done. Currently on BiPAP 24/04. He is saturating well. Increasing BiPAP could be tolerated the patient says that he is not getting enough air. Potassium and magnesium being replaced Was discussed with Dr Piedra and RT Please note the above document was generated using voice recognition software. It may contain grammatical, syntax or spelling errors.Any formal questions or concerns about the content, text or information contained within the body of this dictation should be directly addressed to the provider for clarification. Admission and Anticipated Discharge Date Admission Date: March 28, 2024 Subjective Patient seen and examined at bedside. No acute distress, no adverse events overnight He was on the vent. Systolic blood pressure was in the 90s. Saturating 100% on the vent Did complain of mild headache, no abdominal pain He stated that his breathing is still not back to his baseline Has been using CoughAssist and bringing up clear phlegm. Review of Systems 2 Review of Systems: All systems reviewed & are unremarkable except as noted in Subjective Physical Exam 2 Physical Exam: Constitutional: No acute distress HEENT: EOMI, PERRLA, positive trach Respiratory system: Decreased air entry bilaterally, no wheeze, no rhonchi, positive crackles bilaterally CVS: S1-S2 positive, no murmurs or gallops Abdomen: Soft, nontender, nondistended, positive bowel sounds x4 Extremities: +2 pulses bilaterally radialis/ dorsalis pedis, no cyanosis, +1 pitting edema bilateral lower extremity Neuro: Awake alert oriented x3 Psych: Normal mood and affect G/U: Positive for Skin: no rashes, warm and dry Lymphatic: no cervical or axillary lymphadenopathy Results & Data Results & Data Vital Signs (Past 12 Hours) Vital Signs Temp Pulse Pulse Resp BP Pulse Ox O2 Del Method 03/31/24 04:06 72 16 94 03/31/24 03:39 69 14 97 03/31/24 03:06 83 25 H 98 03/31/24 03:00 37.0 C 86/52 L 03/31/24 02:36 71 17 97 03/31/24 02:30 69 24 97 03/31/24 02:00 72 19 98 03/31/24 01:33 72 19 97 03/31/24 01:00 70 12 98 03/31/24 00:48 71 14 97 03/31/24 00:22 91/57 L 03/31/24 00:22 37.3 C 91/57 L 03/31/24 00:21 78 24 99 03/31/24 00:00 71 14 97 03/31/24 00:00 74 03/30/24 23:30 70 14 98 03/30/24 23:00 76 16 97 03/30/24 22:33 74 14 97 03/30/24 22:09 77 22 97 03/30/24 21:52 106 H 100 Mechanical Vent 03/30/24 21:30 101 H 35 H 100 03/30/24 21:25 129/83 03/30/24 21:25 129/83 03/30/24 21:25 129/83 03/30/24 21:09 41 L 24 84 L 03/30/24 21:03 77 17 100 03/30/24 20:36 89 26 H 100 03/30/24 20:09 73 20 100 Mechanical Vent 03/30/24 20:04 100/67 03/30/24 20:00 75 15 100 Mechanical Vent 03/30/24 20:00 BiPAP 03/30/24 19:39 82 21 100 O2 Flow Rate 03/31/24 04:06 03/31/24 03:39 03/31/24 03:06 03/31/24 03:00 03/31/24 02:36 03/31/24 02:30 03/31/24 02:00 03/31/24 01:33 03/31/24 01:00 03/31/24 00:48 03/31/24 00:22 03/31/24 00:22 03/31/24 00:21 03/31/24 00:00 03/31/24 00:00 03/30/24 23:30 03/30/24 23:00 03/30/24 22:33 03/30/24 22:09 03/30/24 21:52 3 03/30/24 21:30 03/30/24 21:25 03/30/24 21:25 03/30/24 21:25 03/30/24 21:09 03/30/24 21:03 03/30/24 20:36 03/30/24 20:09 3 03/30/24 20:04 03/30/24 20:00 3 03/30/24 20:00 03/30/24 19:39 Laboratory Results 03/31/24 07:41 03/31/24 07:41 Coding Level of Care Code 64886 SUB INP/OBS CARE 3/50MIN Diagnoses Aspiration pneumonia J69.0 Aspiration pneumonia type: unspecified Laterality: bilateral Lung location: unspecified part of lung Bilateral pleural effusion J90 ALS (amyotrophic lateral sclerosis) G12.21 GERD (gastroesophageal reflux disease) K21.9 Tracheostomy dependence Z93.0 (1) Aspiration pneumonia Aspiration pneumonia type: unspecified Laterality: bilateral Lung location: unspecified part of lung Qualified Code(s): J69.0 - Pneumonitis due to inhalation of food and vomit
[2024-03-31 08:04] LABS: Basophils # (auto) 0.03 K/uL (0.00-0.20); Basophils % (auto) 0.6 %; Eosinophils # (auto) 0.21 K/uL (0.00-0.50); Eosinophils % (auto) 4.2 %; Hematocrit (blood only) 25.4 % (42.0-52.0); Hemoglobin 7.7 g/dl (14.0-18.0); Immature Granulocytes # (auto) 0.02 K/uL (0.01-0.20); Immature Granulocytes % (auto) 0.4 %; Lymphocytes # (auto) 1.06 K/uL (1.20-3.40); Lymphocytes % (auto) 20.9 %; Mean Corpuscular Hemoglobin 26.8 pg (25.0-34.0); Mean Corpuscular Hgb Conc 30.3 g/dL (32.0-36.0); Mean Corpuscular Volume 88.5 fL (80.0-100.0); Mean Platelet Volume 11.7 fL (9.4-12.4); Monocytes # (auto) 0.44 K/uL (0.11-0.59); Monocytes % (auto) 8.7 %; Neutrophils % (auto) 65.2 %; Platelet Count 261 K/uL (130-400); RDW Coefficient of Variation 13.9 % (11.5-14.5); RDW Standard Deviation 45.1 fL (36.4-46.3); Red Blood Count 2.87 M/uL (4.70-6.10); White Blood Count 5.06 K/ul (4.8-10.8)
[2024-03-31 08:29] LABS: RBC Morphology Unremarkable
[2024-03-31 09:04] LABS: Alanine Aminotransferase 15 U/L (7-52); Alkaline Phosphatase 82 U/L (34-104); Anion Gap 5 (3-11); Aspartate Aminotransferase 13 U/L (13-39); Bilirubin,Total 0.2 mg/dl (0.2-1.0); Blood Urea Nitrogen 10 mg/dl (6-23); Calcium 8.9 mg/dl (8.6-10.3); Carbon Dioxide 32 mmol/L (21-32); Chloride 103 mmol/L (98-107); Creatinine Clr Calc Pharmacy 500.9 ml/min; Est GFR (African American) > 150.0 ml/min; Est GFR (Non-African American) > 150.0 ml/min; Glucose 138 mg/dl (70-99(Fasting)); Magnesium 1.7 mg/dl (1.7-2.4); Phosphorus 3.9 mg/dl (2.5-4.9); Potassium 3.5 mmol/L (3.5-5.1); Sodium 140 mmol/L (136-145)
[2024-03-31] MEDS: POTASSIUM CHLORIDE 20 MEQ/15 ML UDC PO STA (10:37)
[2024-03-31] MEDS: MAGNESIUM SULFATE / D5W 1 GM/100 ML BAG IV SCH (10:37)
[2024-03-31] MEDS: SCOPOLAMINE 1 MG/72 HR TDSY PATCH TD SCH (10:38)
--- NOTE | 2024-03-31 13:41 | Hospitalist Progress Note ---
Date of Service March 31, 2024 Assessment & Plan (1) Acute hypoxemic respiratory failure: Plan: 48-year-old male with past medical history significant for orthostatic hypotension, irritable bowel syndrome, GERD, ALS, attention deficit disorder without hyperactivity, history of DVT and PE, depression with anxiety who lives at home with his and wheelchair-bound who was recently in the hospital end of January with septic shock and right lower lung collapse and aspiration pneumonia and acute hypoxic respiratory failure s/p intubation and tracheostomy on 02/08/24 as he was unable to be extubated in setting of progressive ALS and and s/p PEG tube placement and did ok and was was discharged to LTAC in [place] and was discharged home from LTAC yesterday and after coming home complained of chest pain and also suction machine was not working and everything was not set up properly and got worried and brought him here. Currently no chest pain. Blood pressure somewhat soft. Has a lot of cough. Was feeling a lot of anxiety and required Ativan. Somewhat drowsy. But able to answer with nodding head and in the room helped with H&P. As per no fevers. No nausea/ vomiting. Currently nutrition is from PEG tube. As per at LTAC swallow evaluation was done but patient did not do good and was advised everything by PEG tube. Somewhat constipated. Micturating okay. No abdominal pain. Aspiration pneumonia CT scan showing no PE, extensive bilateral dependent aspiration pneumonia left greater than right. Bilateral parapneumonic effusions. Received IV Vanco and Zosyn in er blood and sputum cultures are pending MRSA screen is negative and vancomycin has been discontinued appreciate pulmonary input and recommendation will continue with intravenous Zosyn for now likely to go for bronchoscopy tomorrow depending on clinical condition has had limited bronchoscopy yesterday and the lab urgent did not show any significant growth a few of the tests like AFB and fungal cultures are pending sputum and blood cultures are negative so far Remains medically stable with minimal shortness of breath at rest Will change antibiotic to Augmentin through the PEG tube to finish a course of 2 to 3 weeks in total Likely discharge tomorrow or day after Hypotension orthostatic hypotension received cautious amount of intravenous fluid will hold any fluid because of the bilateral pleural effusion has been on midodrine and will continue blood pressure has been on the lower side at 98/63 ALS- quadriplegia in the setting of ALS and nonambulatory status On BiPAP while sleeping at home Goals of Care discussion as above -s/p tracheostomy on 02/07 -PEG tube to be placed by GI unsuccessful, surgery consulted for placement -per Surgery, not a surgical candidate while on pressors -s/p PEG placement by general Surgery on 02/12 has been tolerating PEG tube feeding History of ADHD without hyperactivity depression with anxiety Anxiety and depression has had psychiatric evaluation during last admission will continue home clonazepam no acute issues with delirium History of DVT and PE on Eliquis Nutritional status currently on tube feeds will consult nutrition GERD PPI DVT prophylaxis on Eliquis Disposition telemetry Full code. will discuss with the and likely discharge in a day or 2 Discussed with the in detail (2) Aspiration pneumonia: Plan: as above (3) ALS (amyotrophic lateral sclerosis): Plan: ALS with quadriplegia in and nonambulatory status BiPAP while sleeping at home s/p trach currently on vent (4) Tracheostomy dependence: Plan: on ventilatory support (5) Bilateral pleural effusion: (6) Quadriplegia: (7) Depression: Admission and Anticipated Discharge Date Admission Date: March 28, 2024 Subjective 03/28/2024 The patient was seen and examined in ICU he has significant complicated medical conditions including ALS and status post tracheostomy he was discharged from the LTAC facility in [place] 2 nights before was admitted with worsening respiratory failure and difficult to manage at home has been feeling little better since admission denies any acute distress during my examination 03/30/2024 the patient was seen and examined on 03/29/2024 and the progress note as in the paper chart the patient was seen and examined in ICU he is a status post bronchoscopy with clinical improvement of his condition he denies any significant symptoms and seems to be at his baseline 03/31/2024 The patient was seen and examined in ICU in presence of the He has been stable and complains to have minimal shortness of breath at rest Feels that he is not as his baseline yet Denies any other significant symptoms Review of Systems Review of Systems: all systems reviewed and are unremarkable except as noted below Physical Exam Physical Exam: lying in bed without any acute distress Constitutional: + ill appearing and + thin Eyes: PERRL, conjunctivae normal, anicteric sclerae ENMT: external ear and nose normal, oropharynx normal Respiratory: + respiratory distress Auscultation: + diminished lung sounds and + crackles ( occasional crackles at the bases) Cardiovascular: Rate/Rhythm: regular rate and regular rhythm; not tachycardic Heart Sounds: normal S1 and normal S2; no murmur Extremities: + edema ( 1+ edema bilaterally) Gastrointestinal (Abdomen): Inspection/Auscultation: normal bowel sounds; abdomen not distended Percussion/Palpation: abdomen soft; abdomen nontender Neurologic: Quadriplegia with status post right colostomy tube in situ and PEG tube in situ too Lymphatic: no cervical or axillary lymphadenopathy Results & Data Results & Data Vital Signs (Past 12 Hours) Vital Signs Temp Pulse Resp BP BP Pulse Ox O2 Del Method 03/31/24 13:00 75 20 99 03/31/24 12:33 77 15 98 03/31/24 12:27 80 21 99 03/31/24 11:33 65 16 97 03/31/24 11:15 69 20 97 03/31/24 10:50 89/61 L 03/31/24 10:48 89/61 L 03/31/24 10:48 89/61 L 03/31/24 10:48 89/61 L 03/31/24 10:45 69 16 99 03/31/24 10:03 83 17 99 03/31/24 09:36 80 20 100 03/31/24 09:03 74 16 100 03/31/24 09:00 Trach Collar 03/31/24 08:44 90/58 L 03/31/24 08:44 90/58 L 03/31/24 08:44 90/58 L 03/31/24 08:42 83 21 100 03/31/24 08:30 84 16 100 03/31/24 08:06 88 22 100 03/31/24 07:48 82 14 98 BiPAP 03/31/24 07:36 75 15 99 03/31/24 07:06 80 31 H 97 03/31/24 06:36 72 16 97 03/31/24 06:06 72 14 97 03/31/24 05:36 77 18 97 03/31/24 05:00 93 H 14 97 03/31/24 04:45 81 17 95 03/31/24 04:06 72 16 94 03/31/24 03:39 69 14 97 03/31/24 03:06 83 25 H 98 03/31/24 03:00 37.0 C 86/52 L 03/31/24 02:36 71 17 97 03/31/24 02:30 69 24 97 03/31/24 02:00 72 19 98 O2 Flow Rate 03/31/24 13:00 03/31/24 12:33 03/31/24 12:27 03/31/24 11:33 03/31/24 11:15 03/31/24 10:50 03/31/24 10:48 03/31/24 10:48 03/31/24 10:48 03/31/24 10:45 03/31/24 10:03 03/31/24 09:36 03/31/24 09:03 03/31/24 09:00 03/31/24 08:44 03/31/24 08:44 03/31/24 08:44 03/31/24 08:42 03/31/24 08:30 03/31/24 08:06 03/31/24 07:48 3 03/31/24 07:36 03/31/24 07:06 03/31/24 06:36 03/31/24 06:06 03/31/24 05:36 03/31/24 05:00 03/31/24 04:45 03/31/24 04:06 03/31/24 03:39 03/31/24 03:06 03/31/24 03:00 03/31/24 02:36 03/31/24 02:30 03/31/24 02:00 Laboratory Results Short CBC 03/31/24 Range/Units 07:41 WBC 5.06 (4.8-10.8) K/ul Hgb 7.7 L (14.0-18.0) g/dl Hct 25.4 L (42.0-52.0) % Plt Count 261 (130-400) K/uL BMP 03/31/24 07:41 Sodium 140 Potassium 3.5 Chloride 103 Carbon Dioxide 32 BUN 10 Creatinine < 0.20 L Glucose 138 H Calcium 8.9 Liver Function 03/31/24 Range/Units 07:41 Total Bilirubin 0.2 (0.2-1.0) mg/dl AST 13 (13-39) U/L ALT 15 (7-52) U/L Alkaline Phosphatase 82 (34-104) U/L Albumin 3.0 L (3.4-5.0) gm/dl Medications Administered Current Inpatient Medications Albuterol (Albut/Ipratrop 3mg/0.5mg Neb 3 Ml Vial) 3 ml NEB BIDR [facility]; Protocol Stop: 04/29/24 18:59 Last Admin: 03/31/24 07:34 Dose: 3 ml Apixaban (Apixaban 5 Mg Tablet) 5 mg PO BID [facility] Stop: 04/27/24 08:59 Last Admin: 03/31/24 08:04 Dose: 5 mg Atropine Sulfate (Atropine Sulfate 1% Op Soln 5 Ml Btl) 1 drops OP TID [facility] Stop: 04/27/24 08:59 Last Admin: 03/31/24 13:04 Dose: Not Given Clonazepam (Clonazepam 0.25 Mg Od Tab) 0.75 mg PO TID [facility] Stop: 04/27/24 08:59 Last Admin: 03/31/24 13:33 Dose: 0.75 mg Clonazepam (Clonazepam 0.5 Mg Tab) 0.5 mg PO TID PRN PRN Reason: Anxiety Stop: 04/27/24 06:48 Escitalopram Oxalate (Escitalopram Oxalate 10 Mg Tab) 30 mg PO QAM [facility] Stop: 04/27/24 08:59 Last Admin: 03/31/24 08:04 Dose: 30 mg Famotidine (Famotidine 20 Mg Tab) 20 mg PO HS [facility] Stop: 04/27/24 20:59 Last Admin: 03/30/24 20:58 Dose: 20 mg Fentanyl (Fentanyl 25 Mcg/Hr Tdsy) 1 patch TD Q72H [facility] Stop: 04/11/24 07:29 Last Admin: 03/31/24 08:08 Dose: 1 patch Gabapentin (Gabapentin 300 Mg Cap) 600 mg PO TID [facility] Stop: 04/27/24 08:59 Last Admin: 03/31/24 13:33 Dose: 600 mg Piperacillin Sod/Tazobactam (Sod 4.5 gm/ Dextrose) 100 mls @ 25 mls/hr IV Q8H [facility]; Protocol Stop: 04/04/24 07:59 Last Admin: 03/31/24 08:05 Dose: 25 mls/hr Magnesium Sulfate/Dextrose (Magnesium Sulfate / D5w) 1 gm in 100 mls @ 50 mls/hr IV Q2H [facility] Stop: 03/31/24 16:29 Last Admin: 03/31/24 13:04 Dose: 50 mls/hr Lansoprazole (Lansoprazole 30 Mg Soltab) 30 mg NG QAM [facility] Stop: 04/27/24 08:59 Last Admin: 03/31/24 08:04 Dose: 30 mg Melatonin (Melatonin 3 Mg Tab) 3 mg PO HS [facility] Stop: 04/27/24 20:59 Last Admin: 03/30/24 20:52 Dose: 3 mg Miconazole Nitrate (Miconazole Nitrate Powder 85 Gm) 1 appln EXT PRN PRN PRN Reason: Affected Skin Folds Stop: 04/30/24 04:00 Last Admin: 03/31/24 04:50 Dose: 1 appln Midodrine (Midodrine Hcl 10 Mg Tab) 10 mg PO TID@0800,1200,1700 [facility] Stop: 04/27/24 08:59 Last Admin: 03/31/24 13:04 Dose: 10 mg Mirtazapine (Mirtazapine Tab 15 Mg Tab) 7.5 mg PO HS [facility] Stop: 04/27/24 20:59 Last Admin: 03/30/24 20:50 Dose: 7.5 mg Miscellaneous (Fentanyl Patch Remove & Waste) 1 each N/A Q3D [facility] Stop: 04/27/24 07:28 Last Admin: 03/31/24 08:08 Dose: 1 each Miscellaneous (Check Fentanyl Patch Placement) 1 each N/A QS [facility] Stop: 04/27/24 07:59 Last Admin: 03/31/24 08:09 Dose: 1 each Miscellaneous (Check Scopolamine Patch Placement) 1 each N/A QS [facility] Stop: 04/29/24 15:59 Last Admin: 03/31/24 08:08 Dose: 1 each Miscellaneous (Remove Transderm-Scop Patch) 1 each N/A Q72H [facility] Stop: 05/03/24 10:44 Nitroglycerin (Nitroglycerin Sl 0.4 Mg/Tab Tab) 0.4 mg SL Q5M PRN PRN Reason: Chest Pain Stop: 04/27/24 06:48 Nutritional Formula (Nutren Liqd 2.0 1,000 Ml Bag) 1,000 ml PEG .See Protocol [facility]; Protocol Stop: 04/27/24 10:44 Last Admin: 03/28/24 11:24 Dose: 1,000 ml Oxycodone HCl (Oxycodone Hcl Ir 5 Mg Tab (Immediate Release)) 7.5 mg PEG Q4H PRN PRN Reason: Pain, Moderate Stop: 04/11/24 06:48 Last Admin: 03/31/24 13:33 Dose: 7.5 mg Potassium Chloride (Potassium Chloride Pwd 20 Meq Pack) 20 meq GT DAILY [facility] Stop: 04/27/24 10:14 Last Admin: 03/31/24 08:03 Dose: 20 meq Scopolamine (Scopolamine 1 Mg/72 Hr Tdsy Patch) 1 patch TD Q72H [facility] Stop: 04/30/24 10:29 Last Admin: 03/31/24 10:38 Dose: 1 patch Sodium Chloride (Sodium Chlor 7% 4 Ml Neb) 4 ml NEB BIDR [facility] Stop: 04/29/24 18:59 Last Admin: 03/31/24 07:34 Dose: 4 ml Sterile Water (Tube Feeding Water Flush) 30 ml PEG Q4H [facility] Stop: 04/27/24 10:44 Last Admin: 03/31/24 10:38 Dose: 30 ml (2) Aspiration pneumonia Aspiration pneumonia type: unspecified Laterality: bilateral Lung location: unspecified part of lung Qualified Code(s): J69.0 - Pneumonitis due to inhalation of food and vomit
[2024-03-31] MEDS: AMOXICILLIN/CLAVULANATE SUSP 400/57 MG 5 ML UDP GT SCH (20:58)
[2024-03-31] MEDS ORDERED: AMOXICILLIN/CLAVULANATE SUSP 400/57 MG 5 ML UDP PO SCH (21:00)
[2024-04-01 05:20] LABS: Basophils # (auto) 0.04 K/uL (0.00-0.20); Basophils % (auto) 0.7 %; Eosinophils # (auto) 0.43 K/uL (0.00-0.50); Eosinophils % (auto) 7.9 %; Hematocrit (blood only) 26.3 % (42.0-52.0); Immature Granulocytes # (auto) 0.01 K/uL (0.01-0.20); Immature Granulocytes % (auto) 0.2 %; Lymphocytes # (auto) 1.06 K/uL (1.20-3.40); Lymphocytes % (auto) 19.5 %; Mean Corpuscular Hgb Conc 30.4 g/dL (32.0-36.0); Mean Corpuscular Volume 88.9 fL (80.0-100.0); Mean Platelet Volume 11.8 fL (9.4-12.4); Monocytes % (auto) 9.2 %; Neutrophils % (auto) 62.5 %; Platelet Count 302 K/uL (130-400); RDW Coefficient of Variation 14.3 % (11.5-14.5); RDW Standard Deviation 46.2 fL (36.4-46.3); Red Blood Count 2.96 M/uL (4.70-6.10); White Blood Count 5.44 K/ul (4.8-10.8)
[2024-04-01 05:38] LABS: Anion Gap 3 (3-11); Blood Urea Nitrogen 10 mg/dl (6-23); Calcium 8.9 mg/dl (8.6-10.3); Carbon Dioxide 33 mmol/L (21-32); Chloride 104 mmol/L (98-107); Creatinine Clr Calc Pharmacy 465.8 ml/min; Est GFR (African American) > 150.0 ml/min; Est GFR (Non-African American) > 150.0 ml/min; Glucose 108 mg/dl (70-99(Fasting)); Magnesium 2.1 mg/dl (1.7-2.4); Phosphorus 4.3 mg/dl (2.5-4.9); Potassium 4.1 mmol/L (3.5-5.1); Sodium 140 mmol/L (136-145)
--- NOTE | 2024-04-01 07:00 | Pulmonology Progress Note ---
Date of Service April 01, 2024 Assessment & Plan (1) Aspiration pneumonia: Aspiration pneumonia type: unspecified Laterality: bilateral L salima location: unspecified part of lung Qualified Code(s): J69.0 - Pneumonitis due to inhalation of food and vomit (2) Bilateral pleural effusion: (3) ALS (amyotrophic lateral sclerosis): (4) GERD (gastroesophageal reflux disease): (5) Tracheostomy dependence: Plan -- Aspiration pneumonia Status post bronchoscopy 03/29/2024. Patient at risk for recurrent aspiration pneumonia due to poor cough mechanism from ALS. Continue percussive vest therapy 4 times a day and hypertonic saline twice daily. Continue frequent suctioning. Continue CoughAssist 4 times daily. Sputum cultures from 03/28/2024 with "moderate normal toro". S/p bronchoscopy 03/29/2024, bronchoscopy cultures negative to date Suspect negative cultures due to previous antibiotic use. Would recommend full 10-21 days of antibiotics. Can consider Augmentin --Trach dependent Patient is fully dependent on ventilator and tracheostomy. Will continue ventilator. -- Bilateral pleural effusion Small Strict in and out Plan: Chest x-ray from today shows persistent bilateral lower opacities, mild haziness right costophrenic angle, likely representing small pleural effusion Will give 20 mg of Lasix today Continue antibiotics for total duration of 14-21 days Currently on BiPAP 24/04. He is saturating well. Was discussed with Dr Piedra and RT Please note the above document was generated using voice recognition software. It may contain grammatical, syntax or spelling errors.Any formal questions or concerns about the content, text or information contained within the body of this dictation should be directly addressed to the provider for clarification. Admission and Anticipated Discharge Date Admission Date: March 28, 2024 Subjective Patient seen and examined at bedside. No acute distress, no adverse events overnight He was getting chest PT with a bed at the time of examination Stated that he is feeling better. Denies any chest pain, has been coughing up with the help of complexes. Tolerating home vent without any issues Has been afebrile Tolerating tube feeds Review of Systems 2 Review of Systems: All systems reviewed & are unremarkable except as noted in Subjective Physical Exam 2 Physical Exam: Constitutional: No acute distress HEENT: EOMI, PERRLA, positive trach Respiratory system: Decreased air entry bilaterally, no wheeze, no rhonchi, positive crackles bilaterally CVS: S1-S2 positive, no murmurs or gallops Abdomen: Soft, nontender, nondistended, positive bowel sounds x4, positive PEG Extremities: +2 pulses bilaterally radialis/ dorsalis pedis, no cyanosis, +1 pitting edema bilateral lower extremity Neuro: Awake alert oriented x3 Psych: Normal mood and affect G/U: Positive for Skin: no rashes, warm and dry Lymphatic: no cervical or axillary lymphadenopathy Results & Data Results & Data Vital Signs (Past 12 Hours) Vital Signs Temp Pulse Pulse Resp BP Pulse Ox O2 Del Method 04/01/24 04:36 67 19 97 04/01/24 04:15 73 19 98 04/01/24 03:37 36.5 C 90/54 L 04/01/24 03:36 77 21 97 04/01/24 03:30 70 16 97 04/01/24 03:03 69 16 96 04/01/24 02:33 70 19 97 04/01/24 02:03 68 14 97 04/01/24 02:00 83/50 L 04/01/24 01:48 69 14 97 04/01/24 01:03 67 17 97 04/01/24 00:36 65 16 96 04/01/24 00:21 98 Mechanical Vent 04/01/24 00:12 67 23 96 03/31/24 23:53 36.5 C 104/66 03/31/24 23:40 84/53 L 03/31/24 23:40 84/53 L 03/31/24 23:40 84/53 L 03/31/24 23:40 84/53 L 03/31/24 23:39 66 14 97 03/31/24 23:36 65 13 97 03/31/24 23:01 68 03/31/24 23:00 65 15 97 03/31/24 22:36 65 16 96 03/31/24 22:20 BiPAP 03/31/24 22:00 68 18 97 03/31/24 21:54 68 14 98 03/31/24 21:06 82 23 100 03/31/24 20:42 80 21 100 03/31/24 20:00 37.6 C H 64 19 93/55 L 100 BiPAP 03/31/24 19:47 66 18 97 Mechanical Vent O2 Flow Rate 04/01/24 04:36 04/01/24 04:15 04/01/24 03:37 04/01/24 03:36 04/01/24 03:30 04/01/24 03:03 04/01/24 02:33 04/01/24 02:03 04/01/24 02:00 04/01/24 01:48 04/01/24 01:03 04/01/24 00:36 04/01/24 00:21 3 04/01/24 00:12 03/31/24 23:53 03/31/24 23:40 03/31/24 23:40 03/31/24 23:40 03/31/24 23:40 03/31/24 23:39 03/31/24 23:36 03/31/24 23:01 03/31/24 23:00 03/31/24 22:36 03/31/24 22:20 3 03/31/24 22:00 03/31/24 21:54 03/31/24 21:06 03/31/24 20:42 03/31/24 20:00 3 03/31/24 19:47 3 Laboratory Results 04/01/24 04:40 04/01/24 04:40 PG Care Time/CCT Total # of Minutes Spent Total Time Spent with Patient: Total time spent is greater than 50% in coordination of care (as documented) at patient's floor/unit and/or counseling patient: Coding Level of Care Code 13104 SUB INP/OBS CARE 2/35MIN Diagnoses Aspiration pneumonia J69.0 Aspiration pneumonia type: unspecified Laterality: bilateral Lung location: unspecified part of lung Bilateral pleural effusion J90 ALS (amyotrophic lateral sclerosis) G12.21 GERD (gastroesophageal reflux disease) K21.9 Tracheostomy dependence Z93.0
[2024-04-01] MEDS: FUROSEMIDE INJ 20 MG/2 ML VIAL IV ONE (08:08)
--- NOTE | 2024-04-01 08:27 | XRay Report ---
XR chest 1V portable HISTORY: Shortness of breath. f/u COMPARISON: Chest 03/30/2024. FINDINGS: No pneumothorax. Tracheostomy tube appears in good position. The heart is normal in size. B ibasilar airspace opacities persist. No evidence for pulmonary edema. No acute fractures. A gastrosto my tube is noted. IMPRESSION: No change in the bibasilar airspace opacities. ACT 112: Negative or not required by law. Electronically signed by: Eric Renee M.D. 04/01/2024 8:25 AM
--- NOTE | 2024-04-01 17:01 | Hospitalist Progress Note ---
Date of Service April 01, 2024 Assessment & Plan (1) Acute hypoxemic respiratory failure: Plan: 48-year-old male with past medical history significant for orthostatic hypotension, irritable bowel syndrome, GERD, ALS, attention deficit disorder without hyperactivity, history of DVT and PE, depression with anxiety who lives at home with his and wheelchair-bound who was recently in the hospital end of January with septic shock and right lower lung collapse and aspiration pneumonia and acute hypoxic respiratory failure s/p intubation and tracheostomy on 02/08/24 as he was unable to be extubated in setting of progressive ALS and and s/p PEG tube placement and did ok and was was discharged to LTAC in [place] and was discharged home from LTAC yesterday and after coming home complained of chest pain and also suction machine was not working and everything was not set up properly and got worried and brought him here. Currently no chest pain. Blood pressure somewhat soft. Has a lot of cough. Was feeling a lot of anxiety and required Ativan. Somewhat drowsy. But able to answer with nodding head and in the room helped with H&P. As per no fevers. No nausea/ vomiting. Currently nutrition is from PEG tube. As per at LTAC swallow evaluation was done but patient did not do good and was advised everything by PEG tube. Somewhat constipated. Micturating okay. No abdominal pain. Aspiration pneumonia CT scan showing no PE, extensive bilateral dependent aspiration pneumonia left greater than right. Bilateral parapneumonic effusions. Received IV Vanco and Zosyn in er blood and sputum cultures are pending MRSA screen is negative and vancomycin has been discontinued appreciate pulmonary input and recommendation will continue with intravenous Zosyn for now likely to go for bronchoscopy tomorrow depending on clinical condition has had limited bronchoscopy yesterday and the lab urgent did not show any significant growth a few of the tests like AFB and fungal cultures are pending sputum and blood cultures are negative so far Remains medically stable with minimal shortness of breath at rest Will change antibiotic to Augmentin through the PEG tube to finish a course of 2 to 3 weeks in total Likely discharge tomorrow or day after Remains medically stable without any apparent distress Seems to be at his baseline to be discharged home He will be discharged home tomorrow Hypotension orthostatic hypotension received cautious amount of intravenous fluid will hold any fluid because of the bilateral pleural effusion has been on midodrine and will continue blood pressure has been on the lower side at 98/63 Blood pressure remains on the lower side and the patient remains asymptomatic ALS- quadriplegia in the setting of ALS and nonambulatory status On BiPAP while sleeping at home Goals of Care discussion as above -s/p tracheostomy on 02/07 -PEG tube to be placed by GI unsuccessful, surgery consulted for placement -per Surgery, not a surgical candidate while on pressors -s/p PEG placement by general Surgery on 02/12 has been tolerating PEG tube feeding No change with his home PEG tube feeding will be made History of ADHD without hyperactivity depression with anxiety Anxiety and depression has had psychiatric evaluation during last admission will continue home clonazepam no acute issues with delirium History of DVT and PE on Eliquis Nutritional status currently on tube feeds will consult nutrition GERD PPI DVT prophylaxis on Eliquis Disposition telemetry Full code. will discuss with the and likely discharge in a day or 2 Discussed with the in detail (2) Aspiration pneumonia: Plan: as above (3) ALS (amyotrophic lateral sclerosis): Plan: ALS with quadriplegia in and nonambulatory status BiPAP while sleeping at home s/p trach currently on vent (4) Tracheostomy dependence: Plan: on ventilatory support (5) Bilateral pleural effusion: (6) Quadriplegia: (7) Depression: Admission and Anticipated Discharge Date Admission Date: March 28, 2024 Subjective 03/28/2024 The patient was seen and examined in ICU he has significant complicated medical conditions including ALS and status post tracheostomy he was discharged from the LTAC facility in [place] 2 nights before was admitted with worsening respiratory failure and difficult to manage at home has been feeling little better since admission denies any acute distress during my examination 03/30/2024 the patient was seen and examined on 03/29/2024 and the progress note as in the paper chart the patient was seen and examined in ICU he is a status post bronchoscopy with clinical improvement of his condition he denies any significant symptoms and seems to be at his baseline 03/31/2024 The patient was seen and examined in ICU in presence of the He has been stable and complains to have minimal shortness of breath at rest Feels that he is not as his baseline yet Denies any other significant symptoms 04/01/2024 Patient was seen and examined in ICU He has been stable and denies any significant symptoms Tolerating J-tube feeding and antibiotic through the J-tube Denies any fever and or chills, no increasing shortness of breath Likely discharge tomorrow Review of Systems Review of Systems: all systems reviewed and are unremarkable except as noted below Physical Exam Physical Exam: lying in bed without any acute distress Constitutional: + ill appearing and + thin Eyes: PERRL, conjunctivae normal, anicteric sclerae ENMT: external ear and nose normal, oropharynx normal Respiratory: + respiratory distress Auscultation: + diminished lung sounds and + crackles ( occasional crackles at the bases) Cardiovascular: Rate/Rhythm: regular rate and regular rhythm; not tachycardic Heart Sounds: normal S1 and normal S2; no murmur Extremities: + edema ( 1+ edema bilaterally) Gastrointestinal (Abdomen): Inspection/Auscultation: normal bowel sounds; abdomen not distended Percussion/Palpation: abdomen soft; abdomen nontender Neurologic: Nonverbal, status post tracheostomy, quadriplegia secondary to ALS Lymphatic: no cervical or axillary lymphadenopathy Results & Data Results & Data Vital Signs (Past 12 Hours) Vital Signs Temp Pulse Pulse Resp BP Pulse Ox O2 Del Method 04/01/24 11:51 36.5 C 76 22 81/57 L 100 BiPAP, Mechanical Vent 04/01/24 08:01 80 21 100 Mechanical Vent 04/01/24 08:00 89/60 L 04/01/24 08:00 BiPAP, Mechanical Vent, Trach Collar 04/01/24 08:00 76 O2 Flow Rate 04/01/24 11:51 3 04/01/24 08:01 3 04/01/24 08:00 04/01/24 08:00 3 04/01/24 08:00 Laboratory Results Short CBC 04/01/24 Range/Units 04:40 WBC 5.44 (4.8-10.8) K/ul Hgb 8.0 L (14.0-18.0) g/dl Hct 26.3 L (42.0-52.0) % Plt Count 302 (130-400) K/uL BMP 04/01/24 04:40 Sodium 140 Potassium 4.1 Chloride 104 Carbon Dioxide 33 H BUN 10 Creatinine < 0.20 L Glucose 108 H Calcium 8.9 Medications Administered Current Inpatient Medications Albuterol (Albut/Ipratrop 3mg/0.5mg Neb 3 Ml Vial) 3 ml NEB BIDR [facility]; Protocol Stop: 04/29/24 18:59 Last Admin: 04/01/24 08:00 Dose: 3 ml Amoxicillin/Clavulanate Potassium (Amoxicillin/Clavulanate Susp 400/57 Mg 5 Ml Udp) 800 mg GT BID [facility]; Protocol Stop: 04/07/24 20:59 Last Admin: 04/01/24 08:08 Dose: 800 mg Apixaban (Apixaban 5 Mg Tablet) 5 mg PO BID [facility] Stop: 04/27/24 08:59 Last Admin: 04/01/24 08:05 Dose: 5 mg Atropine Sulfate (Atropine Sulfate 1% Op Soln 5 Ml Btl) 1 drops OP TID [facility] Stop: 04/27/24 08:59 Last Admin: 04/01/24 14:20 Dose: 1 drops Clonazepam (Clonazepam 0.25 Mg Od Tab) 0.75 mg PO TID [facility] Stop: 04/27/24 08:59 Last Admin: 04/01/24 14:21 Dose: 0.75 mg Clonazepam (Clonazepam 0.5 Mg Tab) 0.5 mg PO TID PRN PRN Reason: Anxiety Stop: 04/27/24 06:48 Escitalopram Oxalate (Escitalopram Oxalate 10 Mg Tab) 30 mg PO QAM [facility] Stop: 04/27/24 08:59 Last Admin: 04/01/24 08:05 Dose: 30 mg Famotidine (Famotidine 20 Mg Tab) 20 mg PO HS [facility] Stop: 04/27/24 20:59 Last Admin: 03/31/24 20:37 Dose: 20 mg Fentanyl (Fentanyl 25 Mcg/Hr Tdsy) 1 patch TD Q72H [facility] Stop: 04/11/24 07:29 Last Admin: 03/31/24 08:08 Dose: 1 patch Gabapentin (Gabapentin 300 Mg Cap) 600 mg PO TID [facility] Stop: 04/27/24 08:59 Last Admin: 04/01/24 14:20 Dose: 600 mg Lansoprazole (Lansoprazole 30 Mg Soltab) 30 mg NG QAM [facility] Stop: 04/27/24 08:59 Last Admin: 04/01/24 08:05 Dose: 30 mg Melatonin (Melatonin 3 Mg Tab) 3 mg PO HS [facility] Stop: 04/27/24 20:59 Last Admin: 03/31/24 20:37 Dose: 3 mg Miconazole Nitrate (Miconazole Nitrate Powder 85 Gm) 1 appln EXT PRN PRN PRN Reason: Affected Skin Folds Stop: 04/30/24 04:00 Last Admin: 03/31/24 20:41 Dose: 1 appln Midodrine (Midodrine Hcl 10 Mg Tab) 10 mg PO TID@0800,1200,1700 [facility] Stop: 04/27/24 08:59 Last Admin: 04/01/24 11:16 Dose: 10 mg Mirtazapine (Mirtazapine Tab 15 Mg Tab) 7.5 mg PO HS [facility] Stop: 04/27/24 20:59 Last Admin: 03/31/24 20:37 Dose: 7.5 mg Miscellaneous (Fentanyl Patch Remove & Waste) 1 each N/A Q3D [facility] Stop: 04/27/24 07:28 Last Admin: 03/31/24 08:08 Dose: 1 each Miscellaneous (Check Fentanyl Patch Placement) 1 each N/A QS [facility] Stop: 04/27/24 07:59 Last Admin: 04/01/24 08:04 Dose: 1 each Miscellaneous (Check Scopolamine Patch Placement) 1 each N/A QS [facility] Stop: 04/29/24 15:59 Last Admin: 04/01/24 08:04 Dose: 1 each Miscellaneous (Remove Transderm-Scop Patch) 1 each N/A Q72H [facility] Stop: 05/03/24 10:44 Nitroglycerin (Nitroglycerin Sl 0.4 Mg/Tab Tab) 0.4 mg SL Q5M PRN PRN Reason: Chest Pain Stop: 04/27/24 06:48 Nutritional Formula (Nutren Liqd 2.0 1,000 Ml Bag) 1,000 ml PEG .See Protocol [facility]; Protocol Stop: 04/27/24 10:44 Last Admin: 03/28/24 11:24 Dose: 1,000 ml Oxycodone HCl (Oxycodone Hcl Ir 5 Mg Tab (Immediate Release)) 7.5 mg PEG Q4H PRN PRN Reason: Pain, Moderate Stop: 04/11/24 06:48 Last Admin: 04/01/24 11:16 Dose: 7.5 mg Potassium Chloride (Potassium Chloride Pwd 20 Meq Pack) 20 meq GT DAILY [facility] Stop: 04/27/24 10:14 Last Admin: 04/01/24 08:06 Dose: 20 meq Scopolamine (Scopolamine 1 Mg/72 Hr Tdsy Patch) 1 patch TD Q72H [facility] Stop: 04/30/24 10:29 Last Admin: 03/31/24 10:38 Dose: 1 patch Sodium Chloride (Sodium Chlor 7% 4 Ml Neb) 4 ml NEB BIDR [facility] Stop: 04/29/24 18:59 Last Admin: 04/01/24 08:01 Dose: 4 ml Sterile Water (Tube Feeding Water Flush) 30 ml PEG Q4H [facility] Stop: 04/27/24 10:44 Last Admin: 04/01/24 14:22 Dose: 30 ml (2) Aspiration pneumonia Aspiration pneumonia type: unspecified Laterality: bilateral Lung location: unspecified part of lung Qualified Code(s): J69.0 - Pneumonitis due to inhalation of food and vomit
--- NOTE | 2024-04-02 07:21 | Pulmonology Progress Note ---
Date of Service April 02, 2024 Assessment & Plan (1) Aspiration pneumonia: Aspiration pneumonia type: unspecified Laterality: bilateral L salima location: unspecified part of lung Qualified Code(s): J69.0 - Pneumonitis due to inhalation of food and vomit (2) Bilateral pleural effusion: (3) ALS (amyotrophic lateral sclerosis): (4) GERD (gastroesophageal reflux disease): (5) Tracheostomy dependence: Plan -- Aspiration pneumonia Status post bronchoscopy 03/29/2024. Patient at risk for recurrent aspiration pneumonia due to poor cough mechanism from ALS. Continue percussive vest therapy 4 times a day and hypertonic saline twice daily. Continue frequent suctioning. Continue CoughAssist 4 times daily. Sputum cultures from 03/28/2024 with "moderate normal toro". S/p bronchoscopy 03/29/2024, bronchoscopy cultures negative to date Suspect negative cultures due to previous antibiotic use. Would recommend full 10-21 days of antibiotics. Can consider Augmentin --Trach dependent Patient is fully dependent on ventilator and tracheostomy. Will continue ventilator. -- Bilateral pleural effusion Small Strict in and out Plan: Give another dose of lasix 20 mg today Continue antibiotics for total duration of 14 -21days Currently on BiPAP 24/04. He is saturating well. Was discussed with RT Please note the above document was generated using voice recognition software. It may contain grammatical, syntax or spelling errors.Any formal questions or concerns about the content, text or information contained within the body of this dictation should be directly addressed to the provider for clarification. Admission and Anticipated Discharge Date Admission Date: March 28, 2024 Subjective Patient seen and examined at bedside. No acute distress, no adverse events overnight. Patient's MAP is in the 70s at the time of examination He stated that he is feeling better when it comes to his breathing As per the RT the phlegm is mostly clear. No hemoptysis He denied any chest pain, no abdominal pain No nausea or vomiting Review of Systems 2 Review of Systems: All systems reviewed & are unremarkable except as noted in Subjective Physical Exam 2 Physical Exam: Constitutional: No acute distress HEENT: EOMI, PERRLA, positive trach Respiratory system: Decreased air entry bilaterally, no wheeze, no rhonchi, positive crackles bilaterally CVS: S1-S2 positive, no murmurs or gallops Abdomen: Soft, nontender, nondistended, positive bowel sounds x4, positive PEG Extremities: +2 pulses bilaterally radialis/ dorsalis pedis, no cyanosis, +1 pitting edema bilateral lower extremity Neuro: Awake alert oriented x3 Psych: Normal mood and affect G/U: Condom walters Skin: no rashes, warm and dry Lymphatic: no cervical or axillary lymphadenopathy Results & Data Results & Data Vital Signs (Past 12 Hours) Vital Signs Temp Pulse Resp BP BP Pulse Ox O2 Del Method 04/02/24 06:00 83 21 99 04/02/24 06:00 112/67 04/02/24 04:12 73 21 95 04/02/24 04:00 92/54 L 04/02/24 04:00 37.2 C 04/02/24 03:48 73 18 95 04/02/24 00:00 76 04/02/24 00:00 36.8 C 04/01/24 23:33 108/64 04/01/24 23:29 74 22 95 04/01/24 21:18 101/60 04/01/24 20:44 100/61 04/01/24 20:00 37.1 C 100/61 04/01/24 20:00 74 21 100 04/01/24 19:30 Mechanical Vent, Trach Collar O2 Flow Rate 04/02/24 06:00 04/02/24 06:00 04/02/24 04:12 04/02/24 04:00 04/02/24 04:00 04/02/24 03:48 04/02/24 00:00 04/02/24 00:00 04/01/24 23:33 04/01/24 23:29 04/01/24 21:18 04/01/24 20:44 04/01/24 20:00 04/01/24 20:00 04/01/24 19:30 3 Laboratory Results 04/01/24 04:40 04/01/24 04:40 PG Care Time/CCT Total # of Minutes Spent Total Time Spent with Patient: Total time spent is greater than 50% in coordination of care (as documented) at patient's floor/unit and/or counseling patient: Coding Level of Care Code 58271 SUB INP/OBS CARE 2/35MIN Diagnoses Aspiration pneumonia J69.0 Aspiration pneumonia type: unspecified Laterality: bilateral Lung location: unspecified part of lung Bilateral pleural effusion J90 ALS (amyotrophic lateral sclerosis) G12.21 GERD (gastroesophageal reflux disease) K21.9 Tracheostomy dependence Z93.0
[2024-04-02] MEDS: clonazePAM 0.5 MG TAB PO SCH (08:31)
[2024-04-02] MEDS: clonazePAM 0.25 MG OD TAB PO SCH (08:31)
[2024-04-02] MEDS: FUROSEMIDE INJ 20 MG/2 ML VIAL IV ONE (08:33)
--- NOTE | 2024-04-02 08:36 | Hospitalist Progress Note ---
Date of Service April 02, 2024 Assessment & Plan (1) Acute hypoxemic respiratory failure: Plan: 48-year-old male with past medical history significant for orthostatic hypotension, irritable bowel syndrome, GERD, ALS, attention deficit disorder without hyperactivity, history of DVT and PE, depression with anxiety who lives at home with his and wheelchair-bound who was recently in the hospital end of January with septic shock and right lower lung collapse and aspiration pneumonia and acute hypoxic respiratory failure s/p intubation and tracheostomy on 02/08/24 as he was unable to be extubated in setting of progressive ALS and and s/p PEG tube placement and did ok and was was discharged to LTAC in [place] and was discharged home from LTAC yesterday and after coming home complained of chest pain and also suction machine was not working and everything was not set up properly and got worried and brought him here. Currently no chest pain. Blood pressure somewhat soft. Has a lot of cough. Was feeling a lot of anxiety and required Ativan. Somewhat drowsy. But able to answer with nodding head and in the room helped with H&P. As per no fevers. No nausea/ vomiting. Currently nutrition is from PEG tube. As per at LTAC swallow evaluation was done but patient did not do good and was advised everything by PEG tube. Somewhat constipated. Micturating okay. No abdominal pain. Aspiration pneumonia CT scan showing no PE, extensive bilateral dependent aspiration pneumonia left greater than right. Bilateral parapneumonic effusions. Received IV Vanco and Zosyn in er blood and sputum cultures are pending MRSA screen is negative and vancomycin has been discontinued appreciate pulmonary input and recommendation will continue with intravenous Zosyn for now likely to go for bronchoscopy tomorrow depending on clinical condition has had limited bronchoscopy yesterday and the lab urgent did not show any significant growth a few of the tests like AFB and fungal cultures are pending sputum and blood cultures are negative so far Remains medically stable with minimal shortness of breath at rest Will change antibiotic to Augmentin through the PEG tube to finish a course of 2 to 3 weeks in total Likely discharge tomorrow or day after Remains medically stable without any apparent distress Seems to be at his baseline to be discharged home Discussed with the in detail and also discussed with the patient about going home today He remains medically stable and wanted to be discharged Hypotension orthostatic hypotension received cautious amount of intravenous fluid will hold any fluid because of the bilateral pleural effusion has been on midodrine and will continue blood pressure has been on the lower side at 98/63 Blood pressure remains on the lower side and the patient remains asymptomatic Blood pressure noted to be normal at 118/66 ALS- quadriplegia in the setting of ALS and nonambulatory status On BiPAP while sleeping at home Goals of Care discussion as above -s/p tracheostomy on 02/07 -PEG tube to be placed by GI unsuccessful, surgery consulted for placement -per Surgery, not a surgical candidate while on pressors -s/p PEG placement by general Surgery on 02/12 has been tolerating PEG tube feeding No change with his home PEG tube feeding will be made History of ADHD without hyperactivity depression with anxiety Anxiety and depression has had psychiatric evaluation during last admission will continue home clonazepam no acute issues with delirium He was advised to get the medications from prior prescriber History of DVT and PE on Eliquis Nutritional status currently on tube feeds will consult nutrition GERD PPI DVT prophylaxis on Eliquis Disposition telemetry Full code. will discuss with the and likely discharge in a day or 2 Discussed with the in detail He will be discharged (2) Aspiration pneumonia: Plan: as above (3) ALS (amyotrophic lateral sclerosis): Plan: ALS with quadriplegia in and nonambulatory status BiPAP while sleeping at home s/p trach currently on vent (4) Tracheostomy dependence: Plan: on ventilatory support (5) Bilateral pleural effusion: (6) Quadriplegia: (7) Depression: Admission and Anticipated Discharge Date Admission Date: March 28, 2024 Subjective 03/28/2024 The patient was seen and examined in ICU he has significant complicated medical conditions including ALS and status post tracheostomy he was discharged from the LTAC facility in [place] 2 nights before was admitted with worsening respiratory failure and difficult to manage at home has been feeling little better since admission denies any acute distress during my examination 03/30/2024 the patient was seen and examined on 03/29/2024 and the progress note as in the paper chart the patient was seen and examined in ICU he is a status post bronchoscopy with clinical improvement of his condition he denies any significant symptoms and seems to be at his baseline 03/31/2024 The patient was seen and examined in ICU in presence of the He has been stable and complains to have minimal shortness of breath at rest Feels that he is not as his baseline yet Denies any other significant symptoms 04/01/2024 Patient was seen and examined in ICU He has been stable and denies any significant symptoms Tolerating J-tube feeding and antibiotic through the J-tube Denies any fever and or chills, no increasing shortness of breath Likely discharge tomorrow 04/02/2024 The patient was seen and examined in ICU in presence of the He has been feeling much better and remains medically stable to be discharged Denies any significant symptoms Physical Exam Physical Exam: lying in bed without any acute distress Constitutional: + ill appearing and + thin Eyes: PERRL, conjunctivae normal, anicteric sclerae ENMT: external ear and nose normal, oropharynx normal Respiratory: + respiratory distress Auscultation: + diminished lung sounds and + crackles ( occasional crackles at the bases) Cardiovascular: Rate/Rhythm: regular rate and regular rhythm; not tachycardic Heart Sounds: normal S1 and normal S2; no murmur Extremities: + edema ( 1+ edema bilaterally) Gastrointestinal (Abdomen): Inspection/Auscultation: normal bowel sounds; abdomen not distended Percussion/Palpation: abdomen soft; abdomen nontender Lymphatic: no cervical or axillary lymphadenopathy Results & Data Results & Data Vital Signs (Past 12 Hours) Vital Signs Temp Pulse Pulse Resp BP Pulse Ox O2 Del Method 04/02/24 07:31 83 19 99 Mechanical Vent 04/02/24 06:00 83 21 99 04/02/24 06:00 112/67 04/02/24 04:12 73 21 95 04/02/24 04:00 92/54 L 04/02/24 04:00 37.2 C 04/02/24 03:48 73 18 95 04/02/24 00:00 76 04/02/24 00:00 36.8 C 04/01/24 23:33 108/64 04/01/24 23:29 74 22 95 04/01/24 21:18 101/60 04/01/24 20:44 100/61 O2 Flow Rate 04/02/24 07:31 3 04/02/24 06:00 04/02/24 06:00 04/02/24 04:12 04/02/24 04:00 04/02/24 04:00 04/02/24 03:48 04/02/24 00:00 04/02/24 00:00 04/01/24 23:33 04/01/24 23:29 04/01/24 21:18 04/01/24 20:44 (2) Aspiration pneumonia Aspiration pneumonia type: unspecified Laterality: bilateral Lung location: unspecified part of lung Qualified Code(s): J69.0 - Pneumonitis due to inhalation of food and vomit
--- NOTE | 2024-04-03 11:34 | Discharge Summary ---
Date of Service April 03, 2024 Admission HPI Per Admitting Provider 48-year-old male with past medical history significant for orthostatic hypotension, irritable bowel syndrome, GERD, ALS, attention deficit disorder without hyperactivity, history of DVT and PE, depression with anxiety who lives at home with his and wheelchair-bound who was recently in the hospital end of January with septic shock and right lower lung collapse and aspiration pneumonia and acute hypoxic respiratory failure s/p intubation and tracheostomy on 02/08/24 as he was unable to be extubated in setting of progressive ALS and and s/p PEG tube placement and did ok and was was discharged to LTAC in [place] and was discharged home from LT yesterday and after coming home complained of chest pain and also suction machine was not working and everything was not set up properly and got worried and brought him here. Currently no chest pain. Blood pressure somewhat soft. Has a lot of cough. Was feeling a lot of anxiety and required Ativan. Somewhat drowsy. But able to answer with nodding head and in the room helped with H&P. As per no fevers. No nausea/ vomiting. Currently nutrition is from PEG tube. As per at LTAC swallow evaluation was done but patient did not do good and was advised everything by PEG tube. Somewhat constipated. Micturating okay. No abdominal pain. Past medical history. As mentioned above. Past surgical history. Circumcision. Graft rib cartilage to face. Knee arthroscopy. Rhinoplasty. Appendectomy. Revision of ulnar nerve at elbow left side. Vasectomy. Tracheostomy Social history. . No smoking. Alcohol rare. No drug use Family history. Father had blood clot. Depression. Mother had hypertension. Maternal grandfather had mouth cancer. Stroke. Maternal grandmother had hypertension. Paternal grandfather had UT. Admission Exam Per Admitting Provider hysical Exam: General- Not in distress. Head- atraumatic Eyes- PERRL,. ENT- oropharynx clear Neck- supple, no JVD,Trach site no drainage or erythema seen Lungs- clear to auscultation no wheezing or crackles. Heart- regular rhythm; no murmur, no gallop. Abdomen- normal bowel sounds, soft, nontender, no distension. Peg tube site no drainage or erythema seen. Extremities- no pretibial edema, no erythema seen Neuro- alert, oriented ;answering with moving head or moving lips, PERRL, no facial palsy; Principal Diagnosis Acute hypoxic respiratory failure, aspiration pneumonia, quadriplegia with ALS Discharge Exam lying in bed without any acute distress Constitutional + ill appearing and + thin Eyes PERRL, conjunctivae normal, anicteric sclerae ENMT external ear and nose normal, oropharynx normal Respiratory + respiratory distress Auscultation: + diminished lung sounds and + crackles ( occasional crackles at the bases) Cardiovascular Rate/Rhythm: regular rate and regular rhythm; not tachycardic Heart Sounds: normal S1 and normal S2; no murmur Extremities: + edema ( 1+ edema bilaterally) Gastrointestinal (Abdomen) Inspection/Auscultation: normal bowel sounds; abdomen not distended Percussion/Palpation: abdomen soft; abdomen nontender Lymphatic no cervical or axillary lymphadenopathy Discharge Data Allergies Allergy/AdvReac Type Severity Reaction Status Date / Time tramadol AdvReac Intermediate GI Verified 03/27/24 23:50 discomfort Consultations 03/28/24 00:51 ED Decision to Admit Stat 03/28/24 08:00 Consult Pulmonology Routine Ordered Studies 03/28/24 00:28 CT angio chest PE protocol Stat Hospital Course (1) Acute hypoxemic respiratory failure: 48-year-old male with past medical history significant for orthostatic hypotension, irritable bowel syndrome, GERD, ALS, attention deficit disorder without hyperactivity, history of DVT and PE, depression with anxiety who lives at home with his and wheelchair-bound who was recently in the hospital end of January with septic shock and right lower lung collapse and aspiration pneumonia and acute hypoxic respiratory failure s/p intubation and tracheostomy on 01/11 as he was unable to be extubated in setting of progressive ALS and and s/p PEG tube placement and did ok and was was discharged to LTAC in [place] and was discharged home from LTAC yesterday and after coming home complained of chest pain and also suction machine was not working and everything was not set up properly and got worried and brought him here. Currently no chest pain. Blood pressure somewhat soft. Has a lot of cough. Was feeling a lot of anxiety and required Ativan. Somewhat drowsy. But able to answer with nodding head and in the room helped with H&P. As per no fevers. No nausea/ vomiting. Currently nutrition is from PEG tube. As per at LTAC swallow evaluation was done but patient did not do good and was advised everything by PEG tube. Somewhat constipated. Micturating okay. No abdominal pain. Aspiration pneumonia CT scan showing no PE, extensive bilateral dependent aspiration pneumonia left greater than right. Bilateral parapneumonic effusions. Received IV Vanco and Zosyn in er blood and sputum cultures are pending MRSA screen is negative and vancomycin has been discontinued appreciate pulmonary input and recommendation will continue with intravenous Zosyn for now likely to go for bronchoscopy tomorrow depending on clinical condition has had limited bronchoscopy yesterday and the lab urgent did not show any s ignificant growth a few of the tests like AFB and fungal cultures are pending sputum and blood cultures are negative so far Remains medically stable with minimal shortness of breath at rest Will change antibiotic to Augmentin through the PEG tube to finish a course of 2 to 3 weeks in total Likely discharge tomorrow or day after Remains medically stable without any apparent distress Seems to be at his baseline to be discharged home Discussed with the in detail and also discussed with the patient about going home today He remains medically stable and wanted to be discharged Hypotension orthostatic hypotension received cautious amount of intravenous fluid will hold any fluid because of the bilateral pleural effusion has been on midodrine and will continue blood pressure has been on the lower side at 98/63 Blood pressure remains on the lower side and the patient remains asymptomatic Blood pressure noted to be normal at 118/66 ALS- quadriplegia in the setting of ALS and nonambulatory status On BiPAP while sleeping at home Goals of Care discussion as above -s/p tracheostomy on 02/07 -PEG tube to be placed by GI unsuccessful, surgery consulted for placement -per Surgery, not a surgical candidate while on pressors -s/p PEG placement by general Surgery on 02/12 has been tolerating PEG tube feeding No change with his home PEG tube feeding will be made History of ADHD without hyperactivity depression with anxiety Anxiety and depression has had psychiatric evaluation during last admission will continue home clonazepam no acute issues with delirium He was advised to get the medications from prior prescriber History of DVT and PE on Eliquis Nutritional status currently on tube feeds will consult nutrition GERD PPI DVT prophylaxis on Eliquis Disposition telemetry Full code. 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 (5) Bilateral pleural effusion: (6) Quadriplegia: (7) Depression: Total Time Total Time Spent Total Time Spent (In Minutes): 45 minutes Discharge Plan Discharge Items Patient Disposition: Home - Self-Care Reason For Visit: PNEUMONIA, HYPOTENSION Discharge Diagnosis: Acute hypoxic respiratory failure, aspiration pneumonia, quadriplegia with ALS Condition on Discharge: Fair Activity: As commented below Activity Comment: Needs assistance with ADL S Non-emergency contact: Primary Care Provider Call non-emergency contact if: you have any medication questions and your symptoms worsen Follow-up/Referrals: Keith Cross MD [Primary Care Provider] - (Date & Time 04/08/2024 10:00 AM Provider Rachna De La Cruz CRNP Department Family [facility] ) Diet: Other - See Diet Comment Diet Comment: Continue feeding through PEG tube Addtl Attending Provider Instructions: Please take precautions to avoid falls Finish the course of antibiotic as advised Take precautions to avoid aspiration while giving feeding Pending Studies at Discharge: No Stand-Alone Forms: My [facility] [employer], Smoking Cessation Medications and DC Order Prescriptions: New amoxicillin-pot clavulanate 400-57 mg/5 mL Suspension For Reconstitution 10 ml G-tube BID Qty: 280 0RF Continued ipratropium-albuterol 0.5 mg-3 mg(2.5 mg base)/3 mL solution for nebulization 3 ml INHALATION BID Eliquis 5 mg tablet 5 mg feeding tube BID gabapentin 300 mg capsule 600 mg feeding tube TID scopolamine base 1 mg over 3 days patch 3 day 1 patch topical [id number] clonazepam 0.5 mg tablet 0.5 mg feeding tube TID PRN (Reason: Anxiety) albuterol sulfate 2.5 mg /3 mL (0.083 %) Solution For Nebulization 2.5 mg INHALATION Q6H PRN (Reason: Shortness Of Breath Or Wheezing) olanzapine 5 mg Tablet 5 mg feeding tube DAILY clonazepam 1 mg Tablet 0.75 mg feeding tube TID melatonin 3 mg Tablet 3 mg feeding tube HS furosemide [Lasix] 20 mg Tablet 20 mg feeding tube DAILY fentanyl 25 mcg/hr Patch 72 Hour 1 patch TRANSDERMAL Q72H atropine 1 % Drops 1 drp BUCCAL TID potassium bicarb-citric acid 25 mEq Tablet, Effervescent 25 meq feeding tube DAILY oxycodone 5 mg Tablet 7.5 mg feeding tube Q4H PRN (Reason: Pain, Moderate) midodrine 10 mg Tablet 10 mg PO TID Rx Instructions: do not give last dose of day after 6PM or within 4 hrs of bedtime mirtazapine 7.5 mg Tablet 7.5 mg feeding tube HS Pantoprazole/Sodium Bicarb 40 mg feeding tube QAM Rx Instructions: STRENGTH 2 MG/ 1 ML---TAKE 40 MG/20 ML escitalopram oxalate [Lexapro] 10 mg Tablet 30 mg feeding tube QAM Qty: 90 0RF Discharge Orders: Discharge Order (Routine); Ordered 04/02/24 Ordered By: Samuel Piedra Admission Data Admit Date/Time: 03/28/24 05:25 Attending Provider: Samuel Piedra Admit Provider: Brien Lewis Primary Care Provider: Keith Cross Other Providers: Brien Lewis; Rodrick Burroughs; [facility],Home Healthcare; [facility],Referral Center Other Interventions: Discharge Summary Assessment (RN) Last Done: 04/02/24 09:05
== END 2024-04-02 10:03 | disposition home or self-care (01) | DRG 177 ==
LOC: ED 23:10 → 1E 03-28 05:25

== ENCOUNTER 2024-04-20 05:23 | Inpatient (IN) ==
--- OUTSIDE RECORDS SUMMARY | 2024-04-20 05:28 | External Medical Summary | Summary of Care ---
Author Name Unknown Organization [facility] Address [address] [place] [address] Phone [phone] Care Team Providers Care Prepper Name Role Phone Keith Cross MD Primary Care Provider [phone] Reason for Visit * Reason Onset Date Comments Letter Requests 03/29/2024 Encounter Details Date Type Department Care Team (Late st Contact Info) Description 03/29/[address] [address] Kaylie Peraza, RN Letter Requests Allergies Active Allergy Reactions Criticality Noted Date Comments Lactose 08/15/2023 Other Reaction(s): Diarrhea Tramadol Hcl 12/08/2011 Gi upset documented as of this encounter (statuses as of 04/19/2024) Medications Medication Sig Dispensed Refills Start Date End Date Status Multiple Vitamins-Mineral s (MULTIVITAMIN ADULT) TABS Take [...] 120 Capsule 5 06/19/2023 Active Neomycin-Polymyx in-HC 3.5-00475-3 Otic Solution Administer 4 Drops into ears [...] for Other (dizziness). 30 Tablet 12/12/2023 Active Apixaban 5 MG Oral Tablet (Eliquis) TAKE 1 TABLET BY MOUTH TWO TIMES DAILY 180 Tablet 01/25/2024 Active Gabapentin 300 MG Oral Capsule (Neurontin) TAKE 1 CAPSULE BY MOUTH EVERY MORNING, TAKE 1 CAPSULE AT NOON AND TAKE 1 CAPSULE BY MOUTH AT BEDTIME 90 Capsule 5 02/06/2024 Active Omeprazole 20 MG Oral Capsule Delayed Release (PriLOSEC)Indica tions:Gastroesop hageal reflux disease without esophagitis TAKE 1 CAPSULE BY MOUTH EVERY MORNING 90 Capsule 1 03/03/2024 Active escitalopram (LEXAPRO) 10 MG Tablet Take 2 Tablets by mouth in the morning. 04/28/2016 4 Discontinu ed(Dischar ged) Amphetamine-Dext roamphetamine 30 MG Tablet Take 20 mg by mouth in the morning and 20 mg before bedtime. 30mg in the morning and 30 mg at lunch. 4 Discontinu ed(Medicat ion List Clean Up) Vitamin D (Ergocalciferol) 26595 UNIT Oral Capsule Take 1 Capsule by mouth once a week. 12 Capsule 12/26/2023 4 Discontinu ed(Refill) documented as of this encounter (statuses as of 04/19/2024) Active Problems Problem Noted Date Diagnosed Date Depression with anxiety 06/16/2023 Personal history of DVT (deep vein thrombosis) 0 04/09/2021 History of pulmonary embolism 04/09/2021 ALS (amyotrophic lateral sclerosis) 05/02/2016 Orthostatic hypotension 12/18/2015 GERD (gastroesophageal reflux disease) 6 Irritable bowel syndrome with diarrhea 1 Attention deficit disorder without hyperactivity documented as of this encounter (statuses as of 04/19/2024) Resolved Problems Problem Noted Date Diagnosed Date [...] as of this encounter (statuses as of 04/19/2024) Immunizations Name Administration Dates Next Due COVID-19 [...] encounter Miscellaneous Notes * Telephone Encounter - Kaylie Peraza, RN - 03/29/2024 3:25 PM EDT Provider to address: Patient requesting letter to continue FMLA and a letter with diagnosis and history so that he can receive 24 hour nursing care. Letter pended. Reason for Call: Letter Requests Contact: Telephone Call Contact Type: Information Provider In-Basket: No Outcome: Called patient for MARI call due to recent discharge from [facility] in [place]. Spoke with patient spouse, Aydee. Pt has trach, is vented and PEG tube. He was discharged home 03/27, but is now admitted to [facility] for bilateral pneumonia. Pt is requesting FMLA continuation letter as his is about to and also a letter showing diagnosis and condition so she can establish 24 hour nursing care. is unable to access [employer] due to global IT outage, so requesting that letters be emailed to [email or web address] ( explained that policy prohibits this) or if we can call her when letters could be picked up at clinic. Aydee [phone] Admitted to: [facility] [place], Date: 02/16/24 Discharged to: Home, Date: 03/27/24 Diagnosis driving hospitalization: Respiratory Insufficiency Face to face time spent with Patient (minutes): 0 Total Time including non face to face (minutes): 30 documented in this encounter Plan of Treatment Upcoming Encounters Date Type Department Care Team (Late st Contact Info) Description 04/25/2024 11:20 AM EDT Office Visit Pulmonary Medicine, [facility] [address] [place] [address] Baljit Baldwin MD [address] [place] [address] 06/17/2024 9:00 AM EDT Telemedicine Family Practice [facility] [address] [place] [address] Keith Cross MD [address] [place] [id number] Health Maintenance Due Date Last Done Comments [...] Patients (6 to 64 Years) Aged Out 04/12/2024, 12/26/2016 No longer eligibl e based on patient's age to complete this topic HPV (Gardasil) Vaccine Aged Out No lo nger eligible based on patient's age to complete this topic MENINGOCOCCAL (MENACTRA/MENVEO) Aged Out No longer eligible based on patient's age to complete this topic documented as of this encounter Medical Devices Implanted Type Area Director Of Nursing Device Identifier Shelf Expiration Date Model / Serial / Lot Graft Bone Cartilage Costl 6cm - [id number] Implanted:Qty: 1 on 06/22/2016 by Any T[place]ar [place] [facility] [place]: Nose [employer] 04/16/2021 [id number] / / documented as of this encounter Advance Directives * Full Code (Latest Code Status on File) Date Activated Date Inactivated Comments 07/24/2015 7:58 AM 07/24/2015 3:54 PM This order reflects the patients wishes and were consensually agreed upon. Care Teams Prepper Relationship Specialty Start Date End Date Keith Cross MD [address] [place] [address] PCP - General Family Medicine 03/23/21 documented as of this encounter
--- OUTSIDE RECORDS SUMMARY | 2024-04-20 05:28 | External Medical Summary | Continuity of Care Document ---
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) - 04/10/24 Discharge Disposition: Home or Self Care Attending Physician: MD Matos Xiaowei Referring Physician: MD Cross Anthony J Allergies, Adverse Reactions, Alerts Substance Criticality Severity Reaction Reaction Severity Status Ultram gi upset Active Immunizations Given and Recorded Vaccine Date Status Refusal Reason pneumococcal 23-valent vaccine 12/26/16 Given Medications albuterol 0.083% for nebulization Start: 04/10/24 6:25:00 PM EDT, 3 mL, NEB, q6h, PRN: as needed for wheezing Start Date: 04/10/24 Status: Ordered albuterol-ipratropium 2.5 mg-0.5 mg/3 mL inhalation solution Start: 04/10/24 6:26:00 PM EDT, 3 mL, inhaled, q6h, PRN: as needed for shortness of breath or wheezing Start Date: 04/10/24 Status: Ordered amphetamine-dextroamphetamine 15 mg oral tablet Start: 04/10/24 6:29:00 PM EDT, 1 tab, PO, tid, Refills: 0 Start Date: 04/10/24 Status: Ordered atropine 1% ophthalmic solution Start: 04/10/24 6:25:00 PM EDT, 2 drop, SL, qid, PRN: secretions Start Date: 04/10/24 Status: Ordered clonazePAM 0.5 mg oral tablet Start: 04/10/24 6:25:00 PM EDT, 2 tab, PO, tid Start Date: 04/10/24 Status: Ordered Eliquis 5 mg oral tablet Start: 04/10/24 6:24:00 PM EDT, 1 tab, PO, bid Start Date: 04/10/24 Status: Ordered ergocalciferol 1.25 mg (50,000 intl units) oral capsule Start: 04/10/24 6:25:00 PM EDT, 1 cap, PO, q7days Start Date: 04/10/24 Status: Ordered fentaNYL 25 mcg/hr transdermal film, extended release Start: 04/10/24 6:25:00 PM EDT, 1 patch, topical, q72h, Refills: 0 Start Date: 04/10/24 Status: Ordered furosemide 20 mg oral tablet Start: 04/10/24 6:26:00 PM EDT, 1 tab, PO, Daily Start Date: 04/10/24 Status: Ordered gabapentin 300 mg oral capsule Start: 04/10/24 6:24:00 PM EDT, 2 cap, PO, tid Start Date: 04/10/24 Status: Ordered glycopyrrolate 1 mg oral tablet Start: 04/10/24 6:24:00 PM EDT, 1 tab, PO, tid Start Date: 04/10/24 Status: Ordered Lexapro Start: 05/31/17 12:30:00 PM EDT, 30 mg =, PO, Daily Start Date: 05/31/17 Status: Ordered magnesium oxide 400 mg (241.3 mg elemental magnesium) oral tablet Start: 10/25/23 3:11:00 PM EST, 1 tab, PO, Daily, Disp# 30 tab, Refills: 5, Pharmacy: [id number] Start Date: 10/25/23 Stop Date: 04/22/24 Status: Ordered midodrine 10 mg oral tablet Start: 04/10/24 6:27:00 PM EDT, 1 tab, PO, tid Start Date: 04/10/24 Status: Ordered mirtazapine 7.5 mg oral tablet Start: 04/10/24 6:27:00 PM EDT, 1 tab, PO, qhs Start Date: 04/10/24 Status: Ordered OLANZapine 5 mg oral tablet Start: 04/10/24 6:27:00 PM EDT, 1 tab, PO, Daily Start Date: 04/10/24 Status: Ordered omeprazole 20 mg oral delayed release capsule Start: 04/10/24 6:24:00 PM EDT, 1 cap, PO, Daily Start Date: 04/10/24 Status: Ordered oxyCODONE 5 mg oral tablet Start: 04/10/24 6:27:00 PM EDT, 0.5 tab, PO, q4h, Refills: 0, PRN: as needed for pain Start Date: 04/10/24 Status: Ordered Potassium Chloride (Tkj-Wwel-Ded M20) 20 mEq oral tablet, extended release Start: 04/10/24 6:28:00 PM EDT Start Date: 04/10/24 Status: Ordered scopolamine 1 mg/72 hr transdermal film, extended release Start: 04/10/24 6:28:00 PM EDT Start Date: 04/10/24 Status: Ordered Problem List Condition Confirmation Course Effective Dates Status Health St atus Informant Amyotrophic lateral sclerosis Confirmed Active IBS (irritable bowel syndrome) Confirmed Active Muscle cramps Confirmed Active High risk medications (not anticoagulants) long-term use Confirmed Active Acid reflux Confirmed Active Tachycardia Confirmed Active Depression Confirmed Active Diagnosis Diagnosis Type Effective Dates Health Status Clinical Service Informant 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 Discharge Diagnosis 04/10/24 Non-Specified Procedures Procedure Date Related Diagnosis Body Site Status Rhinoplasty 06/2016 Completed Appendectomy 12/2012 Completed Surgery 1 08/2011 Completed Procedure 2 Completed 1ulnar nerve relocation- left 2ongrown toe nail removal Social History Social History Type Response Smoking Status Never smoked cigaret nguyễn Sex Male Sex Representation Male (finding) Patient Care team information Care Team Personnel Name: MD Cross Anthony J Position: Referring DIRECT Member Role: Primary Care Provider Address: [address] [address] [place] Care Team Related Persons Name: ROLANDO PEMBERTON
--- OUTSIDE RECORDS SUMMARY | 2024-04-20 05:28 | External Medical Summary | Continuity of Care Document ---
Author Name Unknown Organization [place] [address] [address] Address [address] [facility] [address] [place] [phone] Care Team Providers Care Planning Coordinator Name Role Phone Keith Cross Primary Care Physician [phone] [facility] [id number] Date(s): 04/10/24 - 04/10/24 [place] [address] [address] [facility] [place] [address] [facility], [address], Entr[address] [place] [phone] Discharge Disposition: Home or Self Care Attending Physician: MD Oswaldo, Stanford Bedoya Referring Physician: MD Peoples James Allergies, Adverse Reactions, Alerts Substance Criticality Severity [...] Daily, Disp# 30 tab, Refills: 5, Pharmacy: [id number] Start Date: 10/25/23 Stop [...] Start Date: 04/10/24 Status: Ordered Potassium Chloride (Bek-Kztb-Ybb M20) 20 mEq oral tablet, extended release [...] DIRECT Member Role: Primary Care Provider Address: [address] [address] [place] Care Team Related Persons Name: ROLANDO PEMBERTON
--- OUTSIDE RECORDS SUMMARY | 2024-04-20 05:28 | External Medical Summary | Summary of Care ---
Author Name Unknown Organization [facility] Address [address] [place] [address] Phone [phone] Care Team Providers Care Helicopter Officer Name Role Phone Jaclyn Cross MD Primary Care Provider [phone] Reason for Referral * Medication Prior Authorization - Closed Specialty Diagnoses / Procedures Referred By Anamika maciel Referred To Contact Diagnoses ALS (amyotrophic lateral sclerosis) (HCC) Jaclyn Cross MD [address] [place] [address] Referral ID Status Reason Start Date Expiration Date Visits Re quested Visits Authorized [id number] Closed 999 999 * Medication Prior Authorization - Closed Specialty Diagnoses / Procedures Referred By Anamika maciel Referred To Contact Diagnoses ALS (amyotrophic lateral sclerosis) (HCC) Jaclyn Cross MD [address] [place] [address] Referral ID Status Reason Start Date Expiration Date Visits Re quested Visits Authorized [id number] Closed 999 999 Reason for Visit * Reason Onset Date Comments Med Request 04/08/2024 Encounter Details Date Type Department Care Team (Late st Contact Info) Description 04/08/2024 Telephone Family Practice [facility] [address] [place] [address] Jaclyn Cross MD [address] [place] [address] Med Request Allergies Active Allergy Reactions Criticality Noted Date Comments Tramadol Hcl 12/08/2011 Gi upset documented as of this encounter (statuses as of 04/09/2024) Medications Medication Sig Dispensed Refills Start Date End Date Status Multiple Vitamins-Minerals (MULTIVITAMIN ADULT) TABS Take by [...] ABDOMINAL PAIN 120 Capsule 5 3 Active Neomycin-Polymyxin -HC 3.5-83891-9 Otic Solution Administer 4 Drops into ears [...] 4 Active diazePAM 2 MG Oral Tablet (Valium)Indication s:Benign paroxysmal 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 30 Tablet 4 Active Apixaban 5 MG Oral Tablet (Eliquis) TAKE 1 TABLET BY MOUTH TWO TIMES DAILY 180 Tablet 4 Active Gabapentin 300 MG Oral Capsule (Neurontin) TAKE 1 CAPSULE BY MOUTH EVERY MORNING, TAKE 1 CAPSULE AT NOON AND TAKE 1 CAPSULE BY MOUTH AT BEDTIME 90 Capsule 5 4 Active Omeprazole 20 MG Oral Capsule Delayed Release (PriLOSEC)Indicati ons:Gastroesophage al reflux disease without esophagitis TAKE 1 CAPSULE BY MOUTH EVERY MORNING 90 Capsule 1 4 Active Vitamin D (Ergocalciferol) 80335 UNIT Oral Capsule Take 1 Capsule by mouth once a week. 12 Capsule 4 Active fentaNYL 25 MCG/HR Transdermal Patch 72 Hour (Duragesic)Indicat ions:ALS (amyotrophic lateral sclerosis) ([facility]) Place 1 Patch topically on the skin every 3 days. 10 Patch 4 Active oxyCODONE HCl 7.5 MG Oral TabletIndications: ALS (amyotrophic lateral sclerosis) ([facility]) Administer 7.5 mg into PEG tube every 8 hours as needed for Pain, Breakthrough. 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 30 Tablet 4 Active escitalopram (LEXAPRO) 10 MG Tablet Take 2 Tablets by mouth in the morning. 6 04/09/20 24 Discontinu ed(Dischar ged) Amphetamine-Dextro amphetamine 30 MG Tablet Take 20 mg by mouth in the morning and 20 mg before bedtime. 30mg in the morning and 30 mg at lunch. 04/09/20 24 Discontinu ed(Medicat ion List Clean Up) Amphetamine-Dextro amphetamine 20 MG Oral Tablet (Adderall) Take 1 Tablet by mouth in the morning and 1 Tablet at noon and 1 Tablet before bedtime. 4 04/09/20 24 Discontinu ed(Refill) fentaNYL 25 MCG/HR Transdermal Patch 72 Hour (Duragesic) Place 1 Patch topically on the skin. 4 04/09/20 24 Discontinu ed(Refill) oxyCODONE HCl 7.5 MG Oral Tablet 7.5 mg. 4 04/09/20 24 Discontinu ed(Refill) documented as of this encounter (statuses as of 04/09/2024) Active Problems Problem Noted Date Diagnosed Date Depression with anxiety 06/16/2023 Personal history of DVT (deep vein thrombosis) 0 04/09/2021 History of pulmonary embolism 04/09/2021 ALS (amyotrophic lateral sclerosis) 05/02/2016 Orthostatic hypotension 12/18/2015 GERD (gastroesophageal reflux disease) 6 Irritable bowel syndrome with diarrhea 1 Attention deficit disorder without hyperactivity documented as of this encounter (statuses as of 04/09/2024) Resolved Problems Problem Noted Date Diagnosed Date [...] as of this encounter (statuses as of 04/09/2024) Immunizations Name Administration Dates Next Due COVID-19 [...] for ages 0-17 years) Not on file 03 / Food Insecurity Answer Date Recorded Do you [...] as of this encounter Miscellaneous Notes * Addendum Note - Jaclyn Cross MD - 04/09/2024 6:37 PM EDTAddended by: JACLYN CROSS on: 04/09/2024 06:37 PM Modules accepted: Orders * Addendum Note - Rj Mcmahan LPN - 04/09/2024 6:29 PM EDTAddended by: RJ MCMAHAN on: 04/09/2024 06:29 PM Modules accepted: Orders * Telephone Encounter - Rj Mcmahan LPN - 04/09/2024 6:17 PM EDT Spoke with pts , advised of message below. Hospital follow up scheduled to coordinate care. Pts states pt will be out of pain control medication prior to appt for hospital follow up Pt does have appt with ALS provider in [place] tomorrow. Pended medications needed in interim * Telephone Encounter - Jaclyn Cross MD - 04/09/2024 5:43 PM EDT Let's get him in for his scheduled appointment and we can sort ALL of the confusion out at that time. * Addendum Note - Rj Mcmahan LPN - 04/09/2024 5:39 PM EDTAddended by: RJ MCMAHAN on: 04/09/2024 05:39 PM Modules accepted: Orders * Telephone Encounter - Elvira Hopson LPN - 04/09/2024 5:30 PM EDT Several encounters.. Yarely Wick, wire harness assembler Community Liaison Officer SignedYesterday Copy Patients spouse calling requesting the following medication below that is listed as "Historical". The following information was provided: Medication Name: Amphetamine -dextroamphetamin Strength: 20 mg Directions: Take 20 mg in the morning and at lunch Preferred Quantity: 60 Previous Prescriber: Dr. Cheema Preferred Pharmacy: [facility] [id number] Please review and approve if appropriate. Thank you, Yarely Wick Planning Manager [facility] ([facility]) 04/08/2024,8:06 AM Patients spouse is requesting a letter of description for short term disability benefits describingthe nature of his hospitalizations, and history of illnesses, and is being currently treated from home. 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 Patients spouse is also requesting dates of hospitalizations and releases. Subject line: Claim #[id number]. 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 Patient states that someone is going to call the office for an order Thank you, Yarely Wick Planning Manager [facility] ([facility]) 04/08/2024,8:38 AM * Telephone Encounter - Yarely Wick PHARM Tech - 04/08/2024 8:20 AM EDT Patients spouse calling requesting refills for Clonazepam 0.5 mg Take 1/2 tab via peg tube for anxiety or insomnia, Clonazepam 1 mg 3 times daily as needed for anxiety, Midodrine 10 mg 3 times daily,lorazepam 5 mg via peg tube in the morning, Oxycodone 7.5 mg every 4 hours or as needed via peg tube, pantoprazole 2 mg via peg tube in the am, Lansoprazole delayed release 30 via peg tube once in the morning, potassium bicarbonate 25 mg in the am via peg tube . Upon chart review, medication was last prescribed by hospital. Pt did schedule a hospital follow up visit. Please advise if you wish to continue this therapy for the patient. Thank you, Yarely Wick Planning Manager [facility] ([facility]) 04/08/2024,8:20 AM documented in this encounter Plan of Treatment Upcoming Encounters Date Type Department Care Team (Late st Contact Info) Description 04/15/2024 10:00 AM EDT Office Visit [facility] [address] [place] [address] Rachna De La Cruz CRNP 132 [facility] [place] [address] 04/18/2024 11:20 AM EDT Office Visit Pulmonary Medicine, [facility] [address] [place] [address] Baljit Baldwin MD [address] [place] [address] 06/17/2024 9:00 AM EDT Office Visit [facility] [address] [place] [address] Jaclyn Cross MD [address] [place] [address] Health Maintenance Due Date Last Done Comments [...] - Td or Tdap) 09/27/2028 09/27/2018, 01/30/2009 HIV Screening Completed 04/16/2016 Hepatitis C Screening Completed 04/16/2016 Pneumococcal Vaccine: [...] this encounter Medical Devices Implanted Type Area Rag Cutting Machine Feeder Device Identifier Shelf Expiration Date Model / Serial / Lot Graft Bone Cartilage Costl 6cm - [id number] Implanted:Qty: 1 on 06/22/2016 by Any Tovar MD at [place] [facility] [place] N/A: Nose [employer] 04/16/2021 [id number] / / documented as of this encounter Visit Diagnoses Diagnosis ALS (amyotrophic lateral sclerosis) (HCC)- Primary Amyotrophic lateral sclerosis Attention deficit disorder without hyperactivity Attention deficit disorder without mention of hyperactivity documented in this encounter Advance Directives * Full Code (Latest Code Status on File) Date Activated Date Inactivated Comments 07/24/2015 7:58 AM 07/24/2015 3:54 PM This order reflects the patients wishes and were consensually agreed upon. Care Teams Helicopter Officer Relationship Specialty Start Date End Date Jaclyn Cross MD [address] [place] [address] PCP - General Family Medicine 03/23/21 documented as of this encounter
--- OUTSIDE RECORDS SUMMARY | 2024-04-20 05:28 | External Medical Summary | Summary of Care ---
Author Name Unknown Organization [facility] Address [address] [place] [address] Phone [phone] Care Team Providers Care Seam Hammerer Name Role Phone Keith Cross MD Primary Care Provider [phone] Reason for Visit * Reason Onset Date Comments Med Request 04/08/2024 Encounter Details Date Type Department Care Team (Late st Contact Info) Description 04/08/2024 Telephone Family Practice [facility] [address] [employer] [facility] [place] [address] Keith Cross MD [address] [place] [place] [address] Med Request Allergies Active Allergy Reactions Criticality Noted Date Comments Tramadol Hcl 12/08/2011 Gi upset documented as of this encounter (statuses as of 04/09/2024) Medications Medication Sig Dispensed Refills Start Date End Date Status escitalopram (LEXAPRO) 10 MG Tablet Take 2 Tablets by mouth in the morning. 04/28/2016 Active Multiple Vitamins-Mineral s (MULTIVITAMIN ADULT) TABS [...] 120 Capsule 5 06/19/2023 Active Neomycin-Polymyx in-HC 3.5-11200-3 Otic Solution Administer 4 Drops into ears [...] EVERY MORNING 90 Capsule 1 03/03/2024 Active Vitamin D (Ergocalciferol) 89936 UNIT Oral Capsule Take 1 Capsule by mouth once a week. 12 Capsule 2024 Active Amphetamine-Dext roamphetamine 30 MG Tablet Take 20 mg by mouth in the morning and 20 mg before bedtime. 30mg in the morning and 30 mg at lunch. 4 Discontinu ed(Medicat ion List Clean Up) documented as of this encounter (statuses as [...] encounter Miscellaneous Notes * Addendum Note - Hawa Johnson LPN - 04/09/2024 5:39 PM EDTAddended by: HAWA JOHNSON M on: 04/09/2024 05:39 PM Modules accepted: Orders * Telephone Encounter - Elvira Hopson LPN - 04/09/2024 5:30 PM EDT Several encounters.. Yarely Wick, factory manager Industrial Therapist SignedYesterday Copy Patients spouse calling requesting the following medication below that is listed as "Historical". The following information was provided: Medication Name: Amphetamine -dextroamphetamin Strength: 20 mg Directions: Take 20 mg in the morning and at lunch Preferred Quantity: 60 Previous Prescriber: Dr. Cheema Preferred Pharmacy: [facility] [id number] [place] Please review and approve if appropriate. Thank you, Yarely Wick Robotics Technologist [facility] ([facility]) 04/08/2024,8:06 AM Patients spouse is requesting a letter of description for short term disability benefits describingthe nature of his hospitalizations, and history of illnesses, and is being currently treated from home. 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 Patients spouse is also requesting dates of hospitalizations and releases. Subject line: Claim #[id number]. 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 Patient states that someone is going to call the office for an order Thank you, Yarely Wick Robotics Technologist [facility] ([facility]) 04/08/2024,8:38 AM * Telephone Encounter - Yarely Wick, factory manager - 04/08/2024 8:20 AM EDT Patients spouse [...] for the patient. Thank you, Yarely Wick Robotics Technologist [facility]) 04/08/2024,8:20 AM documented in this encounter Plan of Treatment Upcoming Encounters Date Type Department Care Team (Late st Contact Info) Description 04/15/2024 10:00 AM EDT Office Visit Family Practice [facility] [address] [place] [address] Rachna De La Cruz CRNP [address] [place] [address] 04/18/2024 11:20 AM EDT Office Visit Pulmonary Medicine, [facility] [address] [facility] [place] [address] Baljit Baldwin MD [address] [place] [address] 06/17/2024 9:00 AM EDT Office Visit Family Practice [facility] [address] [facility] [place] [address] Keith Cross MD [address] [place] [address] Health Maintenance Due Date Last Done Comments [...] this encounter Medical Devices Implanted Type Area Woodworker Device Identifier Shelf Expiration Date Model / Serial / Lot Graft Bone Cartilage Costl 6cm - [id number] Implanted:Qty: 1 on 06/22/2016 by Any Tovar MD at [place] [facility] [place] N/A: Nose [employer] 04/16/2021 [id number] / / documented as of this encounter Advance Directives * Full Code (Latest Code Status on File) Date Activated Date Inactivated Comments 07/24/2015 7:58 AM 07/24/2015 3:54 PM This order reflects the patients wishes and were consensually agreed upon. Care Teams Seam Hammerer Relationship Specialty Start Date End Date Keith Cross MD 132 [facility] [place] [address] PCP - General Family Medicine 03/23/21 documented as of this encounter
--- OUTSIDE RECORDS SUMMARY | 2024-04-20 05:28 | External Medical Summary | Summary of Care ---
Author Name Unknown Organization [facility] Address [address] [place] [address] Phone [phone] Care Team Providers Care Glove Tagger Name Role Phone Keith Cross MD Primary Care Provider [phone] Reason for Visit * Reason Onset Date Comments Med Request 04/08/2024 Encounter Details Date Type Department Care Team (Late st Contact Info) Description 04/08/2024 Telephone Family Practice [facility] [address] [email or web address] [facility] [place] [address] Keith Cross MD [address] [place] [address] Med Request Allergies Active Allergy Reactions [...] 120 Capsule 5 06/19/2023 Active Neomycin-Polymyx in-HC 3.5-27135-7 Otic Solution Administer 4 Drops into ears [...] Capsule 1 03/03/2024 Active Vitamin D (Ergocalciferol) 58657 UNIT Oral Capsule Take 1 Capsule by mouth once a week. 12 Capsule 2024 Active Amphetamine-Dext roamphetamine 20 MG Oral Tablet (Adderall) Take 1 Tablet by mouth in the morning and 1 Tablet at noon and 1 Tablet before bedtime. 01/19/2024 Active fentaNYL 25 MCG/HR Transdermal Patch 72 Hour (Duragesic) Place 1 Patch topically on the skin. 03/28/2024 4 Active oxyCODONE HCl 7.5 MG Oral Tablet 7.5 mg. 03/27/2024 Active escitalopram (LEXAPRO) 10 MG Tablet Take 2 Tablets by mouth in the morning. 04/28/2016 4 Discontinu ed(Remi schroeder) Amphetamine-Dext roamphetamine 30 MG Tablet Take 20 [...] encounter Miscellaneous Notes * Addendum Note - Rj Mcmahan LPN [...] does have appt with ALS provider in [place] tomorrow. Pended medications needed in interim * Telephone Encounter - Keith Cross MD - 04/09/2024 5:43 PM EDT [...] 5:30 PM EDT Several encounters.. Yarely Wick, road mixer operator Case Hardener SignedYesterday Copy Patients spouse calling requesting the following medication below that is listed as "Historical". The following information was provided: Medication Name: Amphetamine -dextroamphetamin Strength: 20 mg Directions: Take 20 mg in the morning and at lunch Preferred Quantity: 60 Previous Prescriber: Dr. Cheema Preferred Pharmacy: [facility] [id number] [place] Please review and approve if appropriate. Thank you, Yarely Wick Cloth Desizing Range Tender [facility] ([facility]) 04/08/2024,8:06 AM Patients spouse is requesting a letter of description for short term disability benefits describingthe nature of his hospitalizations, and history of illnesses, and is being currently treated from home. 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 Patients spouse is also requesting dates of hospitalizations and releases. Subject line: Claim #[id number]. 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 Patient states that someone is going to call the office for an order Thank you, Yarely Wick Cloth Desizing Range Tender [facility]) 04/08/2024,8:38 AM * Telephone Encounter - Yarely Wick, road mixer operator - 04/08/2024 8:20 AM EDT Patients spouse [...] for the patient. Thank you, Yarely Wick Cloth Desizing Range Tender [facility]) 04/08/2024,8:20 AM documented in this encounter Plan of Treatment Upcoming Encounters Date Type Department Care Team (Late st Contact Info) Description 04/15/2024 10:00 AM EDT Office Visit [facility] 132 [facility] [place] [address] Rachna De La Cruz CRNP 132 [facility] [place] [address] 04/18/2024 11:20 AM EDT Office Visit Pulmonary Medicine, [facility] 132 [facility] [place] [address] Baljit Baldwin MD [address] [place] [address] 06/17/2024 9:00 AM EDT Office Visit [facility] [address] [place] [address] Keith Cross MD [address] [place] [address] Health Maintenance Due Date Last Done Comments [...] this encounter Medical Devices Implanted Type Area Materials Manager Device Identifier Shelf Expiration Date Model / Serial / Lot Graft Bone Cartilage Costl 6cm - [id number] Implanted:Qty: 1 on 06/22/2016 by Any Tovar MD at OR [facility] [place] N/A: Nose [employer] 04/16/2021 [id number] / / documented as of this encounter Advance Directives * Full Code (Latest Code Status on File) Date Activated Date Inactivated Comments 07/24/2015 7:58 AM 07/24/2015 3:54 PM This order reflects the patients wishes and were consensually agreed upon. Care Teams Glove Tagger Relationship Specialty Start Date End Date Keith Cross MD [address] [place] [address] PCP - General Family Medicine 03/23/21 documented as of this encounter
--- OUTSIDE RECORDS SUMMARY | 2024-04-20 05:28 | External Medical Summary | Summary of Care ---
Author Name Unknown Organization [facility] Address [address] [place] [address] Phone [phone] Care Team Providers Care City Tax Auditor Name Role Phone Keith Cross MD Primary Care Provider +1 [phone] Reason for Visit * Reason Onset Date Comments Med Request 04/08/2024 Encounter Details Date Type Department Care Team (Late st Contact Info) Description 04/08/[address] [facility] [address] [facility] [place] [address] Keith Cross MD [address] [place] [facility] [place] [address] Med Request Allergies Active Allergy Reactions [...] 120 Capsule 5 06/19/2023 Active Neomycin-Polymyx in-HC 3.5-77629-3 Otic Solution Administer 4 Drops into ears [...] Capsule 1 03/03/2024 Active Vitamin D (Ergocalciferol) 26427 UNIT Oral Capsule Take 1 Capsule by mouth once a week. 12 Capsule 2024 Active escitalopram (LEXAPRO) 10 MG Tablet Take [...] encounter Miscellaneous Notes * Telephone Encounter - Keith Cross MD - 04/09/2024 5:43 PM EDT Let's get him in for his scheduled appointment and we can sort ALL of the confusion out at that time. * Addendum Note - Rj Johnson LPN - 04/09/2024 5:39 PM EDTAddended by: RJ JOHNSON on: 04/09/2024 05:39 PM Modules accepted: Orders * Telephone Encounter - Elvira Hopson LPN - 04/09/2024 5:30 PM EDT Several encounters.. Yarely Wick, motor vehicle or caravan salesperson Custom Tailor SignedYesterday Copy Patients spouse calling requesting the following medication below that is listed as "Historical". The following information was provided: Medication Name: Amphetamine -dextroamphetamin Strength: 20 mg Directions: Take 20 mg in the morning and at lunch Preferred Quantity: 60 Previous Prescriber: Dr. Cheema [facility]erred Pharmacy: [facility] [id number] [place] Please review and approve if appropriate. Thank you, Yarely Wick Supply Person I [facility] ([facility]) 04/08/2024,8:06 AM Patients spouse is requesting a letter of description for short term disability benefits describingthe nature of his hospitalizations, and history of illnesses, and is being currently treated from home. 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 Patients spouse is also requesting dates of hospitalizations and releases. Subject line: Claim #[id number]. 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 Patient states that someone is going to call the office for an order Thank you, Yarely Wick Supply Person I [facility] ([facility]) 04/08/2024,8:38 AM * Telephone Encounter - Yarely Wick motor vehicle or caravan salesperson - 04/08/2024 8:20 AM EDT Patients spouse [...] for the patient. Thank you, Yarely Wick Supply Person I [facility] ([facility]) 04/08/2024,8:20 AM documented in this encounter Plan of Treatment Upcoming Encounters Date Type Department Care Team (Late st Contact Info) Description 04/15/2024 10:00 AM EDT Office Visit [facility] [address] [facility] [place] [address] Rachna De La Cruz CRNP [address] [place] [address] 04/18/2024 11:20 AM EDT Office Visit Pulmonary Medicine, [facility] [place] [address] Baljit Baldwin MD [address] [place] [address] 06/17/2024 9:00 AM EDT Office Visit [facility] [address] [place] [address] Keith Cross MD [address] [facility] [place] [address] Health Maintenance Due Date Last Done Comments [...] this encounter Medical Devices Implanted Type Area Underpresser Hand Device Identifier Shelf Expiration Date Model / Serial / Lot Graft Bone Cartilage Costl 6cm - [id number] Implanted:Qty: 1 on 06/22/2016 by [place] Tovar [place] [facility] [place]A: Nose [employer] 04/16/2021 [id number] / / documented as of this encounter Advance Directives * Full Code (Latest Code Status on File) Date Activated Date Inactivated Comments 07/24/2015 7:58 AM 07/24/2015 3:54 PM This order reflects the patients wishes and were consensually agreed upon. Care Teams City Tax Auditor Relationship Specialty Start Date End Date Keith Cross MD 132 [facility] [place] [address] PCP - General Family Medicine 03/23/21 documented as of this encounter
--- OUTSIDE RECORDS SUMMARY | 2024-04-20 05:28 | External Medical Summary | Summary of Care ---
Author Name Unknown Organization [facility] Address [address] [place] [address] Phone [phone] Care Team Providers Care Intelligence Senior Sergeant Name Role Phone Keith Cross MD Primary Care Provider [phone] Reason for Visit * Reason Onset Date Comments Medication Refill 04/17/2024 Encounter Details Date Type Department Care Team (Late st Contact Info) Description 04/17/[address] [facility] [address] [facility] [place] [address] Keith Cross MD [address] [facility] [address] ALS (amyotrophic lateral sclerosis) ([facility]) Allergies Active Allergy Reactions Criticality Noted Date Comments Lactose 08/15/2023 Other Reaction(s): Diarrhea Tramadol Hcl 12/08/2011 Gi upset documented as of this encounter (statuses as of 04/17/2024) Medications Medication Sig Dispensed Refills Start Date [...] ABDOMINAL PAIN 120 Capsule 5 06/19/2023 Active Neomycin-Polymyxin- HC 3.5-28308-5 Otic Solution Administer 4 Drops into ears [...] 11/27/2023 Active diazePAM 2 MG Oral Tablet (Valium)Indications :Benign paroxysmal positional vertigo due to bilateral vestibular [...] Omeprazole 20 MG Oral Capsule Delayed Release (PriLOSEC)Indicatio ns:Gastroesophageal reflux disease without esophagitis TAKE 1 CAPSULE BY MOUTH EVERY MORNING 90 Capsule 1 03/03/2024 Active Vitamin D (Ergocalciferol) 21152 UNIT Oral Capsule Take 1 Capsule by mouth once a week. 12 Capsule 2024 Active Furosemide 20 MG Oral Tablet (Lasix) Administer 1 Tablet into PEG tube in the morning. 90 Tablet 3 04/08/2024 Active fentaNYL 25 MCG/HR Transdermal Patch 72 Hour (Duragesic)Indicati ons:ALS (amyotrophic lateral sclerosis) ([facility]) Place 1 Patch topically on the skin every 3 days. 10 Patch 04/09/2024 Active oxyCODONE HCl 7.5 MG Oral TabletIndications:A LS (amyotrophic lateral sclerosis) ([facility]) Administer 7.5 mg into PEG tube every 8 hours as needed for Pain, Breakthrough. 30 Tablet 04/09/2024 Active Amphetamine-Dextroa mphetamine 20 MG Oral Tablet (Adderall)Indicatio ns:Attention deficit disorder without hyperactivity Administer 1 Tablet into PEG tube in the morning and 1 Tablet at noon and 1 Tablet before bedtime. 30 Tablet 04/09/2024 Active Escitalopram Oxalate 20 MG Oral Tablet (Lexapro) Administer 1 Tablet into PEG tube in the morning. 90 Tablet 3 04/16/2024 Active Potassium Bicarbonate 25 MEQ Oral Tablet Effervescent (Klor-Con/Ef) Take 1 Tablet by mouth in the morning. 90 Tablet 3 04/16/2024 Active Lansoprazole 15 MG Oral Capsule Delayed Release (Prevacid) Take 1 Capsule by mouth in the morning. 30 minutes before the first meal of the day. 30 Capsule 11 04/16/2024 Active clonazePAM 1 MG Oral Tablet (KlonoPIN) Take 1 Tablet by mouth 3 times a day as needed for Anxiety. 30 Tablet 04/16/2024 Active documented as of this encounter (statuses as of 04/17/2024) Active Problems Problem Noted Date Diagnosed Date Depression with anxiety 06/16/2023 Personal history of DVT (deep vein thrombosis) 0 04/09/2021 History of pulmonary embolism 04/09/2021 ALS (amyotrophic lateral sclerosis) 05/02/2016 Orthostatic hypotension 12/18/2015 GERD (gastroesophageal reflux disease) 6 Irritable bowel syndrome with diarrhea 1 Attention deficit disorder without hyperactivity documented as of this encounter (statuses as of 04/17/2024) Resolved Problems Problem Noted Date Diagnosed Date [...] as of this encounter (statuses as of 04/17/2024) Immunizations Name Administration Dates Next Due COVID-19 mRNA, LNP-s, No Pre serve, 2-Dose Series (Moderna) 02/01/2021,12/28/2020 COVID-19 mRNA, LNP-s, No Pre serve, 2-Dose Series (Pfizer) 09/01/2021 Pneumococcal Conjugate Vacci ne, 20-valent (Nruiorw52) 04/12/2024 Pneumococcal Polysaccharide PPV23 (Pneumovax) 12/26/2016 Season Influenza, [...] 11:20 AM EDT Office Visit Pulmonary Medicine, [address] [place] [address] Baljit Baldwin MD [address] [place] [address] 06/17/2024 9:00 AM EDT Telemedicine Family Practice [facility] [address] [place] [address] Keith Cross MD [address] [place] [address] Health Maintenance Due Date Last Done Comments [...] this encounter Medical Devices Implanted Type Area Therapeutic Specialist Device Identifier Shelf Expiration Date Model / Serial / Lot Graft Bone Cartilage Costl 6cm - [id number] Implanted:Qty: 1 on 06/22/2016 by Any Tovar MD at [facility] N/A: Nose [employer] 04/16/2021 [id number] / / documented as of this encounter Visit Diagnoses Diagnosis ALS (amyotrophic lateral sclerosis) (HCC) Amyotrophic lateral sclerosis documented in this encounter Advance Directives * Full Code (Latest Code Status on File) Date Activated Date Inactivated Comments 07/24/2015 7:58 AM 07/24/2015 3:54 PM This order reflects the patients wishes and were consensually agreed upon. Care Teams Intelligence Senior Sergeant Relationship Specialty Start Date End Date Keith Cross MD [address] [place] [address] PCP - General Family Medicine 03/23/21 documented as of this encounter
--- OUTSIDE RECORDS SUMMARY | 2024-04-20 05:28 | External Medical Summary | Summary of Care ---
Author Name Unknown Organization [facility] Address [address] [place] [address] Phone [phone] Care Team Providers Care Silo Man Name Role Phone Jaclyn Gamboa MD Primary Care Provider [phone] Reason for Visit * Reason Onset Date Comments Med Request 04/08/2024 Encounter Details Date Type Department Care Team (Late st Contact Info) Description 04/08/2024 Telephone Family Practice [facility] [address] [facility] [place] [address] Jaclyn Gamboa MD [address] [facility] [place] [address] Med Request Allergies Active Allergy Reactions [...] 120 Capsule 5 06/19/2023 Active Neomycin-Polymyx in-HC 3.5-08805-8 Otic Solution Administer 4 Drops into ears [...] Capsule 1 03/03/2024 Active Vitamin D (Ergocalciferol) 66271 UNIT Oral Capsule Take 1 Capsule by mouth once a week. 12 Capsule 2024 Active Escitalopram Oxalate 20 MG Oral Tablet (Lexapro) Administer 1 Tablet into PEG tube in the morning. 90 Tablet 3 04/09/2024 Active escitalopram (LEXAPRO) 10 MG Tablet Take [...] Miscellaneous Notes * Addendum Note - Jaclyn Gamboa MD - 04/09/2024 5:42 PM EDTAddended by: JACLYN GAMBOA on: 04/09/2024 05:42 PM Modules accepted: Orders * Addendum Note - Rj Johnson LPN - 04/09/2024 5:17 PM EDTAddended by: RJ JOHNSON on: 04/09/2024 05:17 PM Modules accepted: Orders * Telephone Encounter - Yarely Wick, banquet houseperson - 04/08/2024 8:12 AM EDT Patients EC calling to request a refill on Lexapro. Medication was last prescribed by Dr Piedra but patient is asking if PCP can take over the medication. Medication is Lexapro 20 mg. Take 1 1/2 tabs in the am Please advise if this is appropriate and send to [id number] [address] [address] [place] if agreeable. Thank you, Yarely Wick Prosthodontist/Educator I [facility] ([facility]) 04/08/2024,8:12 AM documented in this encounter Plan of Treatment Upcoming Encounters Date Type Department Care Team (Late st Contact Info) Description 04/15/2024 10:00 AM EDT Office Visit [facility] [address] [place] [address] Rachna De La Cruz CRNP [address] [place] [address] 04/18/2024 11:20 AM EDT Office Visit Pulmonary Medicine, [facility] [address] [place] [address] Baljit Baldwin MD [address] [place] [facility] [place] [address] 06/17/2024 9:00 AM EDT Office Visit [facility] [address] [place] [address] Jaclyn Gamboa MD [address] [place] [address] Health Maintenance Due Date Last Done Comments [...] this encounter Medical Devices Implanted Type Area Venue Attendant Device Identifier Shelf Expiration Date Model / Serial / Lot Graft Bone Cartilage Costl 6cm - [id number] Implanted:Qty: 1 on 06/22/2016 by Any Tovar MD at [place] [facility] [place] N/A: Nose [employer] 04/16/2021 [id number] / / documented as of this encounter Advance Directives * Full Code (Latest Code Status on File) Date Activated Date Inactivated Comments 07/24/2015 7:58 AM 07/24/2015 3:54 PM This order reflects the patients wishes and were consensually agreed upon. Care Teams Silo Man Relationship Specialty Start Date End Date Jaclyn Gamboa MD 132 [facility] [place] [address] PCP - General Family Medicine 03/23/21 documented as of this encounter
--- OUTSIDE RECORDS SUMMARY | 2024-04-20 05:29 | External Medical Summary | Summary of Care ---
Author Name Unknown Organization [facility] Address [address] [place] [address] Phone [phone] Care Team Providers Care Meat Apprentice Name Role Phone Keith Cross MD Primary Care Provider [phone] [phone] Reason for Visit * Reason Onset Date Comments Med Request 04/08/2024 Encounter Details Date Type Department Care Team (Late st Contact Info) Description 04/08/2024 Telephone Family Practice [facility] [address] [facility] [place] [address] Keith Cross MD [address] [place] [facility] [address] Med Request Allergies Active Allergy Reactions [...] 120 Capsule 5 06/19/2023 Active Neomycin-Polymyxi n-HC 3.5-09659-0 Otic Solution Administer 4 Drops into ears [...] Capsule 1 03/03/2024 Active Vitamin D (Ergocalciferol) 02133 UNIT Oral Capsule Take 1 Capsule by mouth once a week. 12 Capsule 2024 Active documented as of this encounter (statuses [...] Note - Hawa Johnson LPN - 04/09/2024 5:17 PM EDTAddended by: HAWA JOHNSON on: 04/09/2024 05:17 PM Modules accepted: Orders * Telephone Encounter - Yarely Wick software engineer sales - 04/08/2024 8:12 AM EDT Patients EC calling to request a refill on Lexapro. Medication was last prescribed by Dr Piedra but patient is asking if PCP can take over the medication. Medication is Lexapro 20 mg. Take 1 1/2 tabs in the am Please advise if this is appropriate and send to [id number] [address] [place] if agreeable. Thank you, Yarely Wick Tilting Head Band Sawyer I [facility] ([facility]) 04/08/2024,8:12 AM documented in this encounter Plan of Treatment Upcoming Encounters Date Type Department Care Team (Late st Contact Info) Description 04/15/2024 10:00 AM EDT Office Visit Family Practice [facility] [address] [place] [address] Rachna De La Cruz CRNP [address] [place] [address] 04/18/2024 11:20 AM EDT Office Visit Pulmonary Medicine, [facility] [address] [place] [address] Baljit Baldwin MD [address] [place] [address] 06/17/2024 9:00 AM EDT Office Visit Family Practice [facility] [address] [place] [address] Keith Cross MD [address] [place] [address] Health Maintenance Due Date Last Done Comments [...] this encounter Medical Devices Implanted Type Area Wire Border Assembler Device Identifier Shelf Expiration Date Model / Serial / Lot Graft Bone Cartilage Costl 6cm - [id number] Implanted:Qty: 1 on 06/22/2016 by Any Tovar MD at [place] [facility] [place] N/A: Nose [employer] 04/16/2021 [id number] / / documented as of this encounter Advance Directives * Full Code (Latest Code Status on File) Date Activated Date Inactivated Comments 07/24/2015 7:58 AM 07/24/2015 3:54 PM This order reflects the patients wishes and were consensually agreed upon. Care Teams Meat Apprentice Relationship Specialty Start Date End Date Keith Cross MD [address] [place] [address] PCP - General Family Medicine 03/23/21 documented as of this encounter
--- OUTSIDE RECORDS SUMMARY | 2024-04-20 05:29 | External Medical Summary | Summary of Care ---
Author Name Unknown Organization [facility] Address [address] [place] [address] Phone [phone] Care Team Providers Care Clerk Telegraph Service Name Role Phone Kieth Cross MD Primary Care Provider [phone] [phone] Reason for Visit * Reason Onset Date Comments FYI 04/08/2024 Encounter Details Date Type Department Care Team (Late st Contact Info) Description 04/08/2024 Telephone Family Practice [facility] [address] [facility] [facility] [place] [address] Keith Cross MD [address] [place] [address] FYI Allergies Active Allergy Reactions Criticality [...] 120 Capsule 5 06/19/2023 Active Neomycin-Polymyxi n-HC 3.5-73768-5 Otic Solution Administer 4 Drops into ears [...] Capsule 1 03/03/2024 Active Vitamin D (Ergocalciferol) 04214 UNIT Oral Capsule Take 1 Capsule by [...] encounter Miscellaneous Notes * Telephone Encounter - Yarely Wick plant maintenance technician - 04/08/2024 8:31 AM EDT Patients spouse is requesting a letter of description for short term disability benefits describingthe nature of his hospitalizations, and history of illnesses, and is being currently treated from home. Patient plans to return to outreach and education social worker. Patients spouse is also requesting dates of hospitalizations and releases. Subject line: Claim #[id number]. Email is [email or web address] Fax number : Please mention any limitation or restrictions please state patient is to outreach and education social worker Patient spouse is also requesting script for Benetrol 2 ounces as needed via peg tube. Patient states that someone is going to call the office for an order Thank you, Yarely Wick Depilatory Painter I [facility] ([facility]) 04/08/2024,8:38 AM documented in this encounter Plan of Treatment Upcoming Encounters Date Type Department Care Team (Late st Contact Info) Description 04/15/2024 10:00 AM EDT Office Visit [facility] [address] [place] [address] Rachna De La Cruz CRNP [address] [place] [address] 04/18/2024 11:20 AM EDT Office Visit Pulmonary Medicine, [facility] [address] [place] [address] Baljit Baldwin MD [address] [place] [address] 06/17/2024 9:00 AM EDT Office Visit Family Practice [facility] [address] [place] [address] Keith Cross MD [address] [place] [address] Health Maintenance Due Date Last Done Comments [...] this encounter Medical Devices Implanted Type Area Search Engine Optimization Manager Device Identifier Shelf Expiration Date Model / Serial / Lot Graft Bone Cartilage Costl 6cm - [id number] Implanted:Qty: 1 on 06/22/2016 by Any Tovar MD at [place] [facility] [place] N/A: Nose [employer] 04/16/2021 [id number] / / documented as of this encounter Advance Directives * Full Code (Latest Code Status on File) Date Activated Date Inactivated Comments 07/24/2015 7:58 AM 07/24/2015 3:54 PM This order reflects the patients wishes and were consensually agreed upon. Care Teams Clerk Telegraph Service Relationship Specialty Start Date End Date Keith Cross MD 132 [facility] [place] [address] PCP - General Family Medicine 03/23/21 documented as of this encounter
--- OUTSIDE RECORDS SUMMARY | 2024-04-20 05:29 | External Medical Summary | Summary of Care ---
Author Name Unknown Organization [facility] Address [address] [place] [address] Phone [phone] Care Team Providers Care Manager Corporate Marketing Name Role Phone Keith Cross MD Primary Care Provider [phone] [phone] Reason for Visit * Reason Onset Date Comments Medication Refill 04/08/2024 Encounter Details Date Type Department Care Team (Late st Contact Info) Description 04/08/2024 Telephone Family Practice [facility] [address] [place] [address] Keith Cross MD [address] [place] [address] Medication Refill Allergies Active Allergy Reactions Criticality Noted Date [...] 120 Capsule 5 06/19/2023 Active Neomycin-Polymyxi n-HC 3.5-97742-7 Otic Solution Administer 4 Drops into ears [...] Capsule 1 03/03/2024 Active Vitamin D (Ergocalciferol) 68444 UNIT Oral Capsule Take 1 Capsule by [...] Notes * Telephone Encounter - Yarely Wick PHARM Tech - 04/08/2024 8:06 AM EDT Patients spouse calling requesting the following medication below that is listed as "Historical". The following information was provided: Medication Name: Amphetamine -dextroamphetamin Strength: 20 mg Directions: Take 20 mg in the morning and at lunch Preferred Quantity: 60 Previous Prescriber: Dr. Cheema Preferred Pharmacy: [facility] [id number] [place] Please review and approve if appropriate. Thank you, Yarely Wick Oyster Grader I [facility] ([facility]) 04/08/2024,8:06 AM documented in this encounter Plan of Treatment Upcoming Encounters Date Type Department Care Team (Late st Contact Info) Description 04/15/2024 10:00 AM EDT Office Visit Family Practice [facility] [address] [place] [address] Rachna De La Cruz CRNP [address] [place] [address] 04/18/2024 11:20 AM EDT Office Visit Pulmonary Medicine, [facility] [address] [place] [address] NicolasaBaljit montano MD [address] [place] [address] 06/17/2024 9:00 AM EDT Office Visit Family Practice [facility] [address] [place] [address] Keith Cross MD [address] [place] [address] Health Maintenance Due Date Last Done Comments [...] this encounter Medical Devices Implanted Type Area Timber Rider Device Identifier Shelf Expiration Date Model / Serial / Lot Graft Bone Cartilage Costl 6cm - [id number] Implanted:Qty: 1 on 06/22/2016 by Any T[place] [facility] [place]A: Nose [employer] 04/16/2021 [id number] / / documented as of this encounter Advance Directives * Full Code (Latest Code Status on File) Date Activated Date Inactivated Comments 07/24/2015 7:58 AM 07/24/2015 3:54 PM This order reflects the patients wishes and were consensually agreed upon. Care Teams Manager Corporate Marketing Relationship Specialty Start Date End Date Keith Cross MD [address] [place] [address] PCP - General Family Medicine 03/23/21 documented as of this encounter
--- OUTSIDE RECORDS SUMMARY | 2024-04-20 05:29 | External Medical Summary | Summary of Care ---
Author Name Unknown Organization [facility] Address [address] [place] [address] Phone [phone] Care Team Providers Care Auto Design Detailer Name Role Phone Keith Cross MD Primary Care Provider [phone] Reason for Visit * Reason Onset Date Comments FYI 04/08/2024 Encounter Details Date Type Department Care Team (Late st Contact Info) Description 04/08/2024 Telephone Family Practice [facility] 132 [employer] [facility] [place] [address] Keith Cross MD [address] [place] [facility] [place] [address] FYI Allergies Active Allergy Reactions Criticality [...] 120 Capsule 5 06/19/2023 Active Neomycin-Polymyxi n-HC 3.5-09388-8 Otic Solution Administer 4 Drops into ears [...] Capsule 1 03/03/2024 Active Vitamin D (Ergocalciferol) 87573 UNIT Oral Capsule Take 1 Capsule by [...] encounter Miscellaneous Notes * Telephone Encounter - Elvira Hopson LPN - 04/09/2024 5:32 PM EDT Copied into 1 encounter. * Telephone Encounter - Yarely Wick pipe fitter fire sprinkler systems - 04/08/2024 8:31 AM EDT Patients spouse is requesting a letter of description for short term disability benefits describingthe nature of his hospitalizations, and history of illnesses, and is being currently treated from home. Patient plans to return to public health social worker. Patients spouse is also requesting dates of hospitalizations and releases. Subject line: Claim #[id number]. Email is [email or web address] Fax number : Please mention any limitation or restrictions please state patient is to public health social worker Patient spouse is also requesting script for Benetrol 2 ounces as needed via peg tube. Patient states that someone is going to call the office for an order Thank you, Yaerly Wick Campground Manager I [facility] ([facility]) 04/08/2024,8:38 AM documented in this encounter Plan of Treatment Upcoming Encounters Date Type Department Care Team (Late st Contact Info) Description 04/15/2024 10:00 AM EDT Office [facility] [place] [address] Rachna De La Cruz CRNP [address] [place] [address] 04/18/2024 11:20 AM EDT Office Visit Pulmonary Medicine, [facility] 132 [facility] [place] [address] Baljit Baldwin MD [address] [facility] [address] 06/17/2024 9:00 AM EDT Office Visit Family Practice [facility] [place] [address] Keith Cross MD [address] [place] [address] Health Maintenance Due Date Last Done Comments [...] this encounter Medical Devices Implanted Type Area Prepared Foods Team Leader Device Identifier Shelf Expiration Date Model / Serial / Lot Graft Bone Cartilage Costl 6cm - [id number] Implanted:Qty: 1 on 06/22/2016 by Any Tovar MD at OR [facility] [place] N/A: Nose [employer] 04/16/2021 [id number] / / documented as of this encounter Advance Directives * Full Code (Latest Code Status on File) Date Activated Date Inactivated Comments 07/24/2015 7:58 AM 07/24/2015 3:54 PM This order reflects the patients wishes and were consensually agreed upon. Care Teams Auto Design Detailer Relationship Specialty Start Date End Date Keith Cross MD 132 [facility] [place] [address] PCP - General Family Medicine 03/23/21 documented as of this encounter
--- OUTSIDE RECORDS SUMMARY | 2024-04-20 05:29 | External Medical Summary | Summary of Care ---
Author Name Unknown Organization [facility] Address [address] [place] [address] Phone [phone] Care Team Providers Care Learning And Development Analyst Name Role Phone Keith Cross MD Primary Care Provider [phone] Reason for Visit * Reason Onset Date Comments Med Request 04/08/2024 Encounter Details Date Type Department Care Team (Late st Contact Info) Description 04/08/2024 Telephone Family Practice [facility] 132 [employer] [facility] [place] [address] Keith Cross MD [address] [facility] [place] [address] Med Request Allergies Active Allergy Reactions [...] 120 Capsule 5 06/19/2023 Active Neomycin-Polymyxi n-HC 3.5-99014-1 Otic Solution Administer 4 Drops into ears [...] Capsule 1 03/03/2024 Active Vitamin D (Ergocalciferol) 15517 UNIT Oral Capsule Take 1 Capsule by [...] encounter Miscellaneous Notes * Telephone Encounter - Emiliana RICK Felix - 04/09/2024 5:30 PM EDT Several encounters.. Yarely Wick, universal banker Law Tutor SignedYesterday Copy Patients spouse calling requesting the following medication below that is listed as "Historical". The following information was provided: Medication Name: Amphetamine -dextroamphetamin Strength: 20 mg Directions: Take 20 mg in the morning and at lunch Preferred Quantity: 60 Previous Prescriber: Dr. Cheema Preferred Pharmacy: [facility] [id number] [place] Please review and approve if appropriate. Thank you, Yarely Wick Cnc Operator Machinist I [facility] ([facility]) 04/08/2024,8:06 AM Patients spouse is requesting a letter of description for short term disability benefits describingthe nature of his hospitalizations, and history of illnesses, and is being currently treated from home. Patient plans to return to material preparation worker. Patients spouse is also requesting dates of hospitalizations and releases. Subject line: Claim #[id number]. Email is [email or web address] Fax number : Please mention any limitation or restrictions please state patient is to material preparation worker Patient spouse is also requesting script for Benetrol 2 ounces as needed via peg tube. Patient states that someone is going to call the office for an order Thank you, Yarely Wick Cnc Operator Machinist I [facility] ([facility]) 04/08/2024,8:38 AM * Telephone Encounter - Yarely Wick universal banker - 04/08/2024 8:20 AM EDT Patients spouse [...] for the patient. Thank you, Yarely Wick Cnc Operator Machinist [facility] ([facility]) 04/08/2024,8:20 AM documented in this encounter Plan of Treatment Upcoming Encounters Date Type Department Care Team (Late st Contact Info) Description 04/15/2024 10:00 AM EDT Office Visit [facility] [address] [place] [address] Rachna De La Cruz CRNP 132 [facility] [place] [address] 04/18/2024 11:20 AM EDT Office Visit Pulmonary Medicine, [facility] [address] [place] [address] Baljit Baldwin MD [address] [place] [address] 06/17/2024 9:00 AM EDT Office Visit [facility] [address] [place] [address] Keith Cross MD 132 [place] [address] Health Maintenance Due Date Last Done Comments [...] this encounter Medical Devices Implanted Type Area Agriculture Sales Account Manager Device Identifier Shelf Expiration Date Model / Serial / Lot Graft Bone Cartilage Costl 6cm - [id number] Implanted:Qty: 1 on 06/22/2016 by Any Tovar MD at OR [facility] [place] N/A: Nose [employer] 04/16/2021 [id number] / / documented as of this encounter Advance Directives * Full Code (Latest Code Status on File) Date Activated Date Inactivated Comments 07/24/2015 7:58 AM 07/24/2015 3:54 PM This order reflects the patients wishes and were consensually agreed upon. Care Teams Learning And Development Analyst Relationship Specialty Start Date End Date Keith Cross MD 132 [place] [address] PCP - General Family Medicine 03/23/21 documented as of this encounter
--- OUTSIDE RECORDS SUMMARY | 2024-04-20 05:29 | External Medical Summary | Summary of Care ---
Author Name Unknown Organization [facility] Address [address] [place] [address] Phone [phone] Care Team Providers Care Rug Dyer Helper Name Role Phone Keith Cross MD Primary Care Provider [phone] [phone] Reason for Visit * Reason Onset Date Comments Medication Refill 04/08/2024 Encounter Details Date Type Department Care Team (Late st Contact Info) Description 04/08/2024 Telephone Family Practice [facility] 132 [employer] [place] [address] Keith Cross MD [address] [place] [facility] [address] Medication Refill Allergies Active Allergy Reactions [...] 120 Capsule 5 06/19/2023 Active Neomycin-Polymyxi n-HC 3.5-50536-0 Otic Solution Administer 4 Drops into ears [...] Capsule 1 03/03/2024 Active Vitamin D (Ergocalciferol) 24689 UNIT Oral Capsule Take 1 Capsule by [...] Hopson LPN - 04/09/2024 5:30 PM EDT Addressed in 1 encounter * Telephone Encounter - Yarely Wick sample collector - 04/08/2024 8:06 AM EDT Patients spouse calling requesting the following medication below that is listed as "Historical". The following information was provided: Medication Name: Amphetamine -dextroamphetamin Strength: 20 mg Directions: Take 20 mg in the morning and at lunch Preferred Quantity: 60 Previous Prescriber: Dr. Cheema Preferred Pharmacy: [facility] [id number] [place] Please review and approve if appropriate. Thank you, Yarely Wick Crap Game Box Person I [facility] ([facility]) 04/08/2024,8:06 AM documented in this encounter Plan of Treatment Upcoming Encounters Date Type Department Care Team (Late st Contact Info) Description 04/15/2024 10:00 AM EDT Office Visit Family Practice [facility] 132 [place] [address] Rachna De La Cruz CRNP [address] [place] [address] 04/18/2024 11:20 AM EDT Office Visit Pulmonary Medicine, [facility] [address] [place] [address] Baljit Baldwin MD [address] [place] [address] 06/17/2024 9:00 AM EDT Office Visit Family Practice [facility] [address] [place] [address] Keith Cross MD [address] [place] [address] Health Maintenance Due Date Last Done Comments Hepatitis B Vaccine (1 of 3 - 19+ 3-dose series) 1994 Lipid Panel 11/07/2017 11/07/2012 Cologuard 2020 Colonoscopy 2020 Colorectal Cancer Screening 2020 Fecal Occult Blood Test 2020 Sigmoidoscopy 2020 Depression Monitoring 02/25/2021 02/26/2020 COVID-19 Vaccine (2022- season) 2023 09/01/2021, 02/01/2021, 12/28/2020 Influenza Vaccine [...] this encounter Medical Devices Implanted Type Area Ethical Hacker Device Identifier Shelf Expiration Date Model / Serial / Lot Graft Bone Cartilage Costl 6cm - [id number] Implanted:Qty: 1 on 06/22/2016 by Any Tovar MD at [place] [facility] [place] N/A: Nose [employer] 04/16/2021 [id number] / / documented as of this encounter Advance Directives * Full Code (Latest Code Status on File) Date Activated Date Inactivated Comments 07/24/2015 7:58 AM 07/24/2015 3:54 PM This order reflects the patients wishes and were consensually agreed upon. Care Teams Rug Dyer Helper Relationship Specialty Start Date End Date Keith Cross MD [address] [place] [address] PCP - General Family Medicine 03/23/21 documented as of this encounter
--- OUTSIDE RECORDS SUMMARY | 2024-04-20 05:30 | External Medical Summary | Summary of Care ---
Author Name Unknown Organization [facility] Address [address] [place] [address] Phone [phone] Care Team Providers Care Data Center Technician Name Role Phone Keith Cross MD Primary Care Provider [phone] Reason for Visit * Reason Onset Date Comments FYI 04/08/2024 Encounter Details Date Type Department Care Team (Late st Contact Info) Description 04/08/[address] [facility] 132 [employer] [facility] [place] [address] Keith Cross MD [address] [place] [facility] [place] [address] FYI Allergies Active Allergy Reactions Criticality Noted Date Comments Tramadol Hcl 12/08/2011 Gi upset documented as of this encounter (statuses as of 04/08/2024) Medications Medication Sig Dispensed Refills Start Date [...] 120 Capsule 5 06/19/2023 Active Neomycin-Polymyxi n-HC 3.5-19257-9 Otic Solution Administer 4 Drops into ears [...] Capsule 1 03/03/2024 Active Vitamin D (Ergocalciferol) 79888 UNIT Oral Capsule Take 1 Capsule by mouth once a week. 12 Capsule 2024 Active documented as of this encounter (statuses as of 04/08/2024) Active Problems Problem Noted Date Diagnosed Date Depression with anxiety 06/16/2023 Personal history of DVT (deep vein thrombosis) 0 04/09/2021 History of pulmonary embolism 04/09/2021 ALS (amyotrophic lateral sclerosis) 05/02/2016 Orthostatic hypotension 12/18/2015 GERD (gastroesophageal reflux disease) 6 Irritable bowel syndrome with diarrhea 1 Attention deficit disorder without hyperactivity documented as of this encounter (statuses as of 04/08/2024) Resolved Problems Problem Noted Date Diagnosed Date [...] as of this encounter (statuses as of 04/08/2024) Immunizations Name Administration Dates Next Due COVID-19 [...] Notes * Telephone Encounter - Yarely Wick dural mechanic - 04/08/2024 8:31 AM EDT Patients spouse is requesting a letter of description for short term disability benefits describingthe nature of his hospitalizations, and history of illnesses, and is being currently treated from home. 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 Patients spouse is also requesting dates of hospitalizations and releases. Subject line: Claim #[id number]. Email is [email or web address] Fax number : Please mention any limitation or restrictions please state patient is to food service worker hospital Patient spouse is also requesting script for Benetrol 2 ounces as needed via peg tube. Patient states that someone is going to call the office for an order Thank you, Yarely Wick Truck Terminal Manager I [facility] ([facility]) 04/08/2024,8:38 AM documented in this encounter Plan of Treatment Upcoming Encounters Date Type Department Care Team (Late st Contact Info) Description 04/09/2024 1:00 PM EDT Office Visit Pulmonary Medicine, [facility] [address] [place] [address] Baljit Baldwin MD [address] [facility] [place] [address] 04/15/2024 10:00 AM EDT Office Visit [facility] [address] [place] [address] Rachna De La Cruz CRNP [address] [place] [address] 06/17/2024 9:00 AM EDT Office Visit [facility] [address] [place] [address] Keith Cross MD [address] [place] [address] Health Maintenance Due Date Last Done Comments [...] this encounter Medical Devices Implanted Type Area Data Sme Device Identifier Shelf Expiration Date Model / Serial / Lot Graft Bone Cartilage Costl 6cm - [id number] Implanted:Qty: 1 on 06/22/2016 by Any Tovar MD at OR [facility] [place] N/A: Nose [employer] 04/16/2021 [id number] / / documented as of this encounter Advance Directives * Full Code (Latest Code Status on File) Date Activated Date Inactivated Comments 07/24/2015 7:58 AM 07/24/2015 3:54 PM This order reflects the patients wishes and were consensually agreed upon. Care Teams Data Center Technician Relationship Specialty Start Date End Date Keith Cross MD 132 [facility] [place] [address] PCP - General Family Medicine 03/23/21 documented as of this encounter
--- OUTSIDE RECORDS SUMMARY | 2024-04-20 05:30 | External Medical Summary | Summary of Care ---
Author Name Unknown Organization [facility] Address [address] [place] [address] Phone [phone] Care Team Providers Care Air Traffic Controller Name Role Phone Keith Cross MD Primary Care Provider [phone] Reason for Visit * Reason Onset Date Comments Medication Refill 04/08/2024 Encounter Details Date Type Department Care Team (Late st Contact Info) Description 04/08/2024 Telephone Family Practice [facility] 132 [facility] [place] [address] Keith Cross MD [address] [facility] [place] [address] Medication Refill Allergies Active Allergy Reactions [...] 120 Capsule 5 06/19/2023 Active Neomycin-Polymyxi n-HC 3.5-00081-4 Otic Solution Administer 4 Drops into ears [...] Capsule 1 03/03/2024 Active Vitamin D (Ergocalciferol) 01732 UNIT Oral Capsule Take 1 Capsule by [...] Notes * Telephone Encounter - Yarely Wick cash accounting clerk - 04/08/2024 8:06 AM EDT Patients spouse calling requesting the following medication below that is listed as "Historical". The following information was provided: Medication Name: Amphetamine -dextroamphetamin Strength: 20 mg Directions: Take 20 mg in the morning and at lunch Preferred Quantity: 60 Previous Prescriber: Dr. Cheema Preferred Pharmacy: [facility] [id number] [place] Please review and approve if appropriate. Thank you, Yarely Wick Motion Picture Projectionist Apprentice I [facility] ([facility]) 04/08/2024,8:06 AM documented in this encounter Plan of Treatment Upcoming Encounters Date Type Department Care Team (Late st Contact Info) Description 04/09/2024 1:00 PM EDT Office Visit Pulmonary Medicine, [facility] [address] [place] [place] [address] Baljit Baldwin MD [address] [facility] [place] [id number] 04/15/2024 10:00 AM EDT Office Visit Family Practice [facility] [address] [place] [address] Rachna De La Cruz CRNP [address] [place] [address] 06/17/2024 9:00 AM EDT Office Visit Family [facility] [address] [place] [address] Keith Cross MD [address] [place] [id number] Health Maintenance Due Date Last Done Comments [...] this encounter Medical Devices Implanted Type Area Instrument Panel Assembler Device Identifier Shelf Expiration Date Model / Serial / Lot Graft Bone Cartilage Costl 6cm - [id number] Implanted:Qty: 1 on 06/22/2016 by Any Tovar MD at [place] [facility] [place] N/A: Nose [employer] 04/16/2021 [id number] / / documented as of this encounter Advance Directives * Full Code (Latest Code Status on File) Date Activated Date Inactivated Comments 07/24/2015 7:58 AM 07/24/2015 3:54 PM This order reflects the patients wishes and were consensually agreed upon. Care Teams Air Traffic Controller Relationship Specialty Start Date End Date Keith Cross MD 132 [place] [address] PCP - General Family Medicine 03/23/21 documented as of this encounter
--- OUTSIDE RECORDS SUMMARY | 2024-04-20 05:30 | External Medical Summary | Summary of Care ---
Author Name Unknown Organization [facility] Address [address] [place] [address] Phone [phone] Care Team Providers Care Natural Resource Economist Name Role Phone Keith Cross MD Primary Care Provider [phone] Reason for Visit * Reason Onset Date Comments Med Request 04/08/2024 Encounter Details Date Type Department Care Team (Late st Contact Info) Description 04/08/2024 Telephone Family Practice [facility] 132 [employer] [facility] [place] [address] Keith Cross MD [address] [place] [place] [address] Med Request Allergies Active Allergy Reactions [...] 120 Capsule 5 06/19/2023 Active Neomycin-Polymyxi n-HC 3.5-35319-9 Otic Solution Administer 4 Drops into ears [...] Capsule 1 03/03/2024 Active Vitamin D (Ergocalciferol) 80972 UNIT Oral Capsule Take 1 Capsule by [...] Notes * Telephone Encounter - Yarely Wick chronometer adjuster - 04/08/2024 8:12 AM EDT Patients EC calling to request a refill on Lexapro. Medication was last prescribed by Dr Piedra but patient is asking if PCP can take over the medication. Medication is Lexapro 20 mg. Take 1 1/2 tabs in the am Please advise if this is appropriate and send to [facility] [id number] [place].- [place] if agreeable. Thank you, Yarely Wick Manager Qa I [facility] ([facility]) 04/08/2024,8:12 AM documented in this encounter Plan of Treatment Upcoming Encounters Date Type Department Care Team (Late st Contact Info) Description 04/09/2024 1:00 PM EDT Office Visit Pulmonary Medicine, [facility] 132 [place] [address] Baljit Baldwin MD [address] [place] [address] 04/15/2024 10:00 AM EDT Office Visit Family Practice [facility] [address] [place] [place] [address] Rachna De La Cruz CRNP [address] [place] [address] 06/17/2024 9:00 AM EDT Office Visit Family [facility] [address] [place] [address] Keith Cross MD [address] [place] [address] Health Maintenance Due Date Last Done Comments [...] this encounter Medical Devices Implanted Type Area Oriental Rug Repairer Device Identifier Shelf Expiration Date Model / Serial / Lot Graft Bone Cartilage Costl 6cm - [id number] Implanted:Qty: 1 on 06/22/2016 by Any Tovar MD [place] [facility] [place]/A: Nose [employer] 04/16/2021 [id number] / / documented as of this encounter Advance Directives * Full Code (Latest Code Status on File) Date Activated Date Inactivated Comments 07/24/2015 7:58 AM 07/24/2015 3:54 PM This order reflects the patients wishes and were consensually agreed upon. Care Teams Natural Resource Economist Relationship Specialty Start Date End Date Keith Cross MD [address] [place] [address] PCP - General Family Medicine 03/23/21 documented as of this encounter
--- OUTSIDE RECORDS SUMMARY | 2024-04-20 05:30 | External Medical Summary | Summary of Care ---
Author Name Unknown Organization [facility] Address [address] [place] [address] Phone [phone] Care Team Providers Care Waxer Operator Name Role Phone Jaclyn Gamboa MD Primary Care Provider +1 [phone] Reason for Visit * Reason Onset Date Comments Medication Refill 04/03/2024 Encounter Details Date Type Department Care Team (Late st Contact Info) Description 04/03/2024 Refill Family Practice [facility] [address] [facility] [place] [id number] Jaclyn Gamboa MD [address] [facility] [place] [address] Allergies Active Allergy Reactions Criticality Noted Date Comments Tramadol Hcl 12/08/2011 Gi upset documented as of this encounter (statuses as of 2024) Medications Medication Sig Dispensed Refills Start Date End Date Status escitalopram (LEXAPRO) 10 MG Tablet Take 2 Tablets by mouth in the morning. 04/28/2016 Active Amphetamine-Dext roamphetamine 30 MG Tablet [...] 120 Capsule 5 06/19/2023 Active Neomycin-Polymyx in-HC 3.5-38344-6 Otic Solution Administer 4 Drops into ears [...] Capsule 1 03/03/2024 Active Vitamin D (Ergocalciferol) 93961 UNIT Oral Capsule Take 1 Capsule by mouth once a week. 12 Capsule 2024 Active Vitamin D (Ergocalciferol) 39028 UNIT Oral Capsule Take 1 Capsule by mouth once a week. 12 Capsule 04/03/2024 4 Discontinu ed(Refill) documented as of this encounter (statuses as of 2024) Active Problems Problem Noted Date Diagnosed Date Depression with anxiety 06/16/2023 Personal history of DVT (deep vein thrombosis) 0 04/09/2021 History of pulmonary embolism 04/09/2021 ALS (amyotrophic lateral sclerosis) 05/02/2016 Orthostatic hypotension 12/18/2015 GERD (gastroesophageal reflux disease) 6 Irritable bowel syndrome with diarrhea 1 Attention deficit disorder without hyperactivity documented as of this encounter (statuses as of 2024) Resolved Problems Problem Noted Date Diagnosed Date [...] as of this encounter (statuses as of 2024) Immunizations Name Administration Dates Next Due COVID-19 [...] Telephone Encounter - Jaclyn Gamboa MD - 2024 1:41 PM EDTSigned Prescriptions: Disp Refills Vitamin D (Ergocalciferol) 35553 UNIT Oral*12 Cap*0 Sig: Take 1 Capsule by mouth once a week. Authorizing Provider: JACLYN GAMBOA * Telephone Encounter - Carolyn Abdullahi LPN - 2024 7:36 AM EDTPending Prescriptions: Disp Refills Vitamin D (Ergocalciferol) 33865 UNIT Oral*12 Cap*0 Sig: Take 1 Capsule by mouth once a week. * Telephone Encounter - Aria Patricio OSA - 04/03/2024 3:38 PM EDT Did you pend patient's preferred pharmacy and medication before forwarding?no Pharmacy: [id number] [address] [place] Pending Prescriptions: Disp Refills Vitamin D (Ergocalciferol) 63454 UNIT Ora*12 Cap*0 Sig: Take 1 Capsule by mouth once a week. Last Visit: 08/23/2023 (in office), 11/27/2023 (telemedicine) Next Visit: 04/08/2024 If no future appointments scheduled, and last appointment is greater than a year ago, please schedule patient for a follow-up appointment Last date the medication was ordered: [id number] Is this request for a controlled substance?No [...] Team (Late st Contact Info) Description 04/08/2024 10:00 AM EDT Office Visit Family Practice [facility] [address] [place] [address] Rachna De La Cruz CRNP [address] [place] [address] 04/09/2024 1:00 PM EDT Office Visit Pulmonary Medicine, [facility] [address] [place] [address] Baljit Baldwin MD [address] [place] [address] 06/17/2024 9:00 AM EDT Office Visit Family Practice [facility] [address] [place] [address] Jaclyn Gamboa MD [address] [place] [address] Health Maintenance Due Date Last Done Comments [...] this encounter Medical Devices Implanted Type Area Coffee Break Attendant Device Identifier Shelf Expiration Date Model / Serial / Lot Graft Bone Cartilage Costl 6cm - [id number] Implanted:Qty: 1 on 06/22/2016 by Any Tovar MD at OR [facility] [place] N/A: Nose [employer] 04/16/2021 [id number] / / documented as of this encounter Advance Directives * Full Code (Latest Code Status on File) Date Activated Date Inactivated Comments 07/24/2015 7:58 AM 07/24/2015 3:54 PM This order reflects the patients wishes and were consensually agreed upon. Care Teams Waxer Operator Relationship Specialty Start Date End Date Jaclyn Gamboa MD [address] [place] [address] PCP - General Family Medicine 03/23/21 documented as of this encounter
--- OUTSIDE RECORDS SUMMARY | 2024-04-20 05:30 | External Medical Summary | Summary of Care ---
Author Name Unknown Organization [facility] Address [address] [place] [address] Phone [phone] Care Team Providers Care Hydraulic Press Tender Name Role Phone Keith Cross MD Primary Care Provider [phone] Reason for Visit * Reason Onset Date Comments Med Request 04/08/2024 Encounter Details Date Type Department Care Team (Late st Contact Info) Description 04/08/2024 Telephone Family Practice [facility] [address] [employer] [facility] [place] [address] Keith Cross MD [address] [place] [facility] [place] [address] Med Request Allergies Active Allergy [...] 120 Capsule 5 06/19/2023 Active Neomycin-Polymyxi n-HC 3.5-63806-0 Otic Solution Administer 4 Drops into ears [...] Capsule 1 03/03/2024 Active Vitamin D (Ergocalciferol) 37062 UNIT Oral Capsule Take 1 Capsule by [...] Notes * Telephone Encounter - Yarely Wick surgery assistant - 04/08/2024 8:20 AM EDT Patients spouse [...] for the patient. Thank you, Yarely Wick Tube Puller I [facility] ([facility]) 04/08/2024,8:20 AM documented in this encounter Plan of Treatment Upcoming Encounters Date Type Department Care Team (Late st Contact Info) Description 04/15/2024 10:00 AM EDT Office Visit Family [facility] [address] [place] [address] Rachna De La Cruz CRNP [address] [place] [address] 04/18/2024 11:20 AM EDT Office Visit [facility]monary Medicine, [facility] [place] [address] Baljit Baldwin MD [address] [place] [address] 06/17/2024 9:00 AM EDT Office Visit Family Practice [facility] [address] [address] Keith Cross MD [address] [place] [address] Health Maintenance Due Date Last Done Comments [...] encounter Medical Devices Implanted Type Area Manager Mobility Device Identifier Shelf Expiration Date Model / Serial / Lot Graft Bone Cartilage Costl 6cm - [id number] Implanted:Qty: 1 on 06/22/2016 by Any Tovar MD [place] [facility] [place] N/A: Nose [employer] 04/16/2021 [id number] / / documented as of this encounter Advance Directives * Full Code (Latest Code Status on File) Date Activated Date Inactivated Comments 07/24/2015 7:58 AM 07/24/2015 3:54 PM This order reflects the patients wishes and were consensually agreed upon. Care Teams Hydraulic Press Tender Relationship Specialty Start Date End Date Keith Cross MD [facility] [place] [address] PCP - General Family Medicine 03/23/21 documented as of this encounter
--- OUTSIDE RECORDS SUMMARY | 2024-04-20 05:30 | External Medical Summary | Summary of Care ---
Author Name Unknown Organization [facility] Address [address] [place] [address] Phone [phone] Care Team Providers Care Knowledge Analyst Name Role Phone Keith Cross MD Primary Care Provider [phone] Encounter Details Date Type Department Care Team (Late st Contact Info) Description 04/08/2024 Orders Only Outcomes Research Department [address] [place] [address] Cathie Danielle CHRA [employer] [facility] Other*[id number] Allergies Active Allergy Reactions Criticality Noted Date [...] 120 Capsule 5 06/19/2023 Active Neomycin-Polymyxi n-HC 3.5-20704-6 Otic Solution Administer 4 Drops into ears [...] Capsule 1 03/03/2024 Active Vitamin D (Ergocalciferol) 50930 UNIT Oral Capsule Take 1 Capsule by [...] Description 04/08/2024 10:00 AM EDT Office Visit [facility] [address] [place] [address] Rachna De La Cruz CRNP [address] [place] [address] 04/09/2024 1:00 PM EDT Office Visit Pulmonary Medicine, [facility] 132 [facility] [place] [address] Baljit Baldwin MD [address] [place] [address] 06/17/2024 9:00 AM EDT Office Visit [facility] [address] [place] [address] Keith Cross MD [address] [place] [address] Scheduled Orders Name Type Priority Associated Diagnoses Orde r Schedule MYCODE INITIAL ADULT Lab Routine [employer] Other*[id number] Expected: 04/08/2024 (Approximate), Expires: 04/28/2025 Health Maintenance Due Date Last Done Comments [...] this encounter Medical Devices Implanted Type Area Elementary Tutor Device Identifier Shelf Expiration Date Model / Serial / Lot Graft Bone Cartilage Costl 6cm - [id number] Implanted:Qty: 1 on 06/22/2016 by Any Tovar MD at OR [facility] [place] N/A: Nose [employer] 04/16/2021 [id number] / / documented as of this encounter Visit Diagnoses Diagnosis [employer] [facility] Other*[id number] documented in this encounter Advance Directives * Full Code (Latest Code Status on File) Date Activated Date Inactivated Comments 07/24/2015 7:58 AM 07/24/2015 3:54 PM This order reflects the patients wishes and were consensually agreed upon. Care Teams Knowledge Analyst Relationship Specialty Start Date End Date Keith Cross MD [address] [place] [address] PCP - General Family Medicine 03/23/21 documented as of this encounter
--- OUTSIDE RECORDS SUMMARY | 2024-04-20 05:30 | External Medical Summary | Summary of Care ---
Author Name Unknown Organization [facility] Address [address] [place] [address] Phone [phone] Care Team Providers Care Digital Project Coordinator Name Role Phone Keith Cross MD Primary Care Provider [phone] [phone] Reason for Visit * Reason Onset Date Comments Medication Refill 04/08/2024 Encounter Details Date Type Department Care Team (Late st Contact Info) Description 04/08/2024 Telephone Family Practice [facility] [address] [email or web address] [place] [address] Keith Cross MD [address] [facility] [place] [address] Medication Refill Allergies Active Allergy Reactions [...] 120 Capsule 5 06/19/2023 Active Neomycin-Polymyxi n-HC 3.5-39413-8 Otic Solution Administer 4 Drops into ears [...] Capsule 1 03/03/2024 Active Vitamin D (Ergocalciferol) 46223 UNIT Oral Capsule Take 1 Capsule by [...] - Yarely Wick PHARM Tech - 04/08/2024 8:14 AM EDT Patients spouse requesting refills for Furosemide 20 mg. Upon chart review, medication is listed asdiscontinued, with discontinuation reason as "none". Please advise if you wish to continue this therapy for the patient. Thank you, Yarely Wick Api Developer I [facility] ([facility]) 04/08/2024,8:15 AM documented in this encounter Plan of Treatment Upcoming Encounters Date Type Department Care Team (Late st Contact Info) Description 04/09/2024 1:00 PM EDT Office Visit Pulmonary Medicine, [facility] [address] [place] [address] Baljit Baldwin MD [address] [facility] [place] [address] 04/15/2024 10:00 AM EDT Office Visit Family Practice [facility] [address] [place] [address] Rachna De La Cruz CRNP [address] [place] [address] 06/17/2024 9:00 AM EDT Office Visit Family Practice [facility] [address] [place] [address] Keith Cross MD [address] [place] [address] Health Maintenance Due Date Last Done Comments [...] this encounter Medical Devices Implanted Type Area Storage Battery Tester Device Identifier Shelf Expiration Date Model / Serial / Lot Graft Bone Cartilage Costl 6cm - [id number] Implanted:Qty: 1 on 06/22/2016 by Any Tovar MD at [place] [facility] [place] N/A: Nose [employer] 04/16/2021 [id number] / / documented as of this encounter Advance Directives * Full Code (Latest Code Status on File) Date Activated Date Inactivated Comments 07/24/2015 7:58 AM 07/24/2015 3:54 PM This order reflects the patients wishes and were consensually agreed upon. Care Teams Digital Project Coordinator Relationship Specialty Start Date End Date Keith Cross MD [address] [place] [address] PCP - General Family Medicine 03/23/21 documented as of this encounter
--- OUTSIDE RECORDS SUMMARY | 2024-04-20 05:30 | External Medical Summary | Summary of Care ---
Author Name Unknown Organization [facility] Address [address] [place] [address] Phone [phone] Care Team Providers Care Deli Associate Name Role Phone Keith Cross MD Primary Care Provider [phone] [phone] Reason for Visit * Reason Onset Date Comments Medication Refill 04/08/2024 Encounter Details Date Type Department Care Team (Late st Contact Info) Description 04/08/2024 Refill Family Practice [facility] [address] [facility] [place] [address] Keith Cross MD [address] [facility] [place] [id number] Allergies Active Allergy Reactions Criticality Noted Date [...] 120 Capsule 5 06/19/2023 Active Neomycin-Polymyxi n-HC 3.5-59300-2 Otic Solution Administer 4 Drops into ears [...] Capsule 1 03/03/2024 Active Vitamin D (Ergocalciferol) 59143 UNIT Oral Capsule Take 1 Capsule by mouth once a week. 12 Capsule 2024 Active Furosemide 20 MG Oral Tablet (Lasix) 1 Tablet in the morning. 03/27/2024 Active documented as of this encounter (statuses [...] encounter Miscellaneous Notes * Addendum Note - Zora De Leon LPN - 04/08/2024 3:27 PM EDTAddended by: ZORA DE LEON on: 04/08/2024 03:27 PM Modules accepted: Orders * Telephone Encounter - Zora De Leon LPN - 04/08/2024 3:26 PM EDT Pended med per requested-- please advise * Telephone Encounter - Yarely Wick adjunct communications faculty member - 04/08/2024 8:14 AM EDT Patients spouse requesting refills for Furosemide 20 mg. Upon chart review, medication is listed asdiscontinued, with discontinuation reason as "none". Please advise if you wish to continue this therapy for the patient. Thank you, Yarely Wick Active Directory Systems Administrator I [facility] ([facility]) 04/08/2024,8:15 AM documented in this encounter Plan of Treatment Upcoming Encounters Date Type Department Care Team (Late st Contact Info) Description 04/09/2024 1:00 PM EDT Office Visit Pulmonary Medicine, [facility] [address] [facility] [place] [address] Baljit Baldwin MD [address] [place] [address] 04/15/2024 10:00 AM EDT Office Visit [facility] [address] [facility] [place] [address] Rachna De La Cruz CRNP [address] [place] [address] 06/17/2024 9:00 AM EDT Office Visit [facility] [address] [place] [address] Keith Cross MD [address] [facility] [place] [address] Health Maintenance Due Date Last Done Comments [...] this encounter Medical Devices Implanted Type Area Interventional Cardiologist Device Identifier Shelf Expiration Date Model / Serial / Lot Graft Bone Cartilage Costl 6cm - [id number] Implanted:Qty: 1 on 06/22/2016 by Any Tovar MD at [facility] N/A: Nose [employer] 04/16/2021 [id number] / / documented as of this encounter Advance Directives * Full Code (Latest Code Status on File) Date Activated Date Inactivated Comments 07/24/2015 7:58 AM 07/24/2015 3:54 PM This order reflects the patients wishes and were consensually agreed upon. Care Teams Deli Associate Relationship Specialty Start Date End Date Keith Cross MD [address] [facility] [place] [address] PCP - General Family Medicine 03/23/21 documented as of this encounter
--- OUTSIDE RECORDS SUMMARY | 2024-04-20 05:30 | External Medical Summary | Summary of Care ---
Author Name Unknown Organization [facility] Address [address] [place] [address] Phone [phone] Care Team Providers Care Personal Loan Specialist Name Role Phone Keith Cross MD Primary Care Provider [phone] [phone] Reason for Visit * Reason Onset Date Comments Medication Refill 04/08/2024 Encounter Details Date Type Department Care Team (Late st Contact Info) Description 04/08/2024 Refill Family Practice [facility] [address] [place] [facility] [place] [address] Keith Cross MD [address] [facility] [place] [id number] Allergies Active Allergy Reactions Criticality Noted Date [...] 120 Capsule 5 06/19/2023 Active Neomycin-Polymyxi n-HC 3.5-47214-3 Otic Solution Administer 4 Drops into ears [...] Capsule 1 03/03/2024 Active Vitamin D (Ergocalciferol) 31660 UNIT Oral Capsule Take 1 Capsule by mouth once a week. 12 Capsule 2024 Active Furosemide 20 MG Oral Tablet (Lasix) Administer 1 Tablet into PEG tube in the morning. 90 Tablet 3 04/08/2024 Active documented as of this encounter (statuses [...] encounter Miscellaneous Notes * Telephone Encounter - Rosario Reddy CPhT - 04/08/2024 7:59 AM EDT Pt calling refills medication Pt phone not working well called dropped for there second time. Thank you, Rosario Reddy CPhT Senior Care Provider II Centralized Clinical Pharmacy Services ([facility]PS) (Formerly Telepharmacy) 04/08/2024,8:00 AM documented in this encounter Plan of Treatment Upcoming Encounters Date Type Department Care Team (Late st Contact Info) Description 04/09/2024 1:00 PM EDT Office Visit Pulmonary Medicine, [facility] [address] [facility] [place] [address] Baljit Baldwin MD [address] [facility] [place] [address] 04/15/2024 10:00 AM EDT Office Visit Family Practice [facility] [address] [place] [address] Rachna De La Cruz CRNP 132 [facility] [place] [address] 06/17/2024 9:00 AM EDT Office Visit Family Practice [facility] [address] [place] [address] Keith Cross MD [address] [place] [address] Health Maintenance Due Date Last Done Comments [...] encounter Medical Devices Implanted Type Area Building Trades Instructor Device Identifier Shelf Expiration Date Model / Serial / Lot Graft Bone Cartilage Costl 6cm - [id number] Implanted:Qty: 1 on 06/22/2016 [place]ar [place] [facility] [place]: Nose [employer] 04/16/2021 [id number] / / documented as of this encounter Advance Directives * Full Code (Latest Code Status on File) Date Activated Date Inactivated Comments 07/24/2015 7:58 AM 07/24/2015 3:54 PM This order reflects the patients wishes and were consensually agreed upon. Care Teams Personal Loan Specialist Relationship Specialty Start Date End Date Keith Cross MD [address] [place] [address] PCP - General Family Medicine 03/23/21 documented as of this encounter
--- OUTSIDE RECORDS SUMMARY | 2024-04-20 05:30 | External Medical Summary | Summary of Care ---
Author Name Unknown Organization [facility] Address [address] [place] [address] Phone [phone] Care Team Providers Care Head Start Teacher Name Role Phone Keith Cross MD Primary Care Provider [phone] [phone] Reason for Visit * Reason Onset Date Comments Med Request 04/08/2024 Encounter Details Date Type Department Care Team (Late st Contact Info) Description 04/08/2024 Telephone Family Practice [facility] [address] [facility] [place] [address] Keith Cross MD [address] [facility] [place] [address] Med Request Allergies Active Allergy Reactions [...] 120 Capsule 5 06/19/2023 Active Neomycin-Polymyxi n-HC 3.5-62799-3 Otic Solution Administer 4 Drops into ears [...] Capsule 1 03/03/2024 Active Vitamin D (Ergocalciferol) 31459 UNIT Oral Capsule Take 1 Capsule by [...] Notes * Telephone Encounter - Yarely Wick batching operator - 04/08/2024 8:20 AM EDT Patients [...] for the patient. Thank you, Yarely Wick Pulp Grinder And Blender I [facility] Pharm[facility] ([facility]) 04/08/2024,8:20 AM documented in this encounter Plan of Treatment Upcoming Encounters Date Type Department Care Team (Late st Contact Info) Description 04/09/2024 1:00 PM EDT Office Visit Pulmonary Medicine, [address] [place] [address] Baljit Baldwin MD [address] [facility] [place] [address] 04/15/2024 10:00 AM EDT Office Visit [facility] [address] [place] [address] Rachna De La Cruz CRNP [address] [place] [address] 06/17/2024 9:00 AM EDT Office Visit [facility] [address] [place] [address] Keith Cross MD [address] [facility] [place] [address] Health Maintenance Due Date Last Done Comments [...] this encounter Medical Devices Implanted Type Area Leadership Program Internship Device Identifier Shelf Expiration Date Model / Serial / Lot Graft Bone Cartilage Costl 6cm - [id number] Implanted:Qty: 1 on 06/22/2016 by Any Tovar MD at [place] [facility] [place]/A: Nose [employer] 04/16/2021 [id number] / / documented as of this encounter Advance Directives * Full Code (Latest Code Status on File) Date Activated Date Inactivated Comments 07/24/2015 7:58 AM 07/24/2015 3:54 PM This order reflects the patients wishes and were consensually agreed upon. Care Teams Head Start Teacher Relationship Specialty Start Date End Date Keith Cross MD 132 [facility] [place] [address] PCP - General Family Medicine 03/23/21 documented as of this encounter
--- OUTSIDE RECORDS SUMMARY | 2024-04-20 05:31 | External Medical Summary | Summary of Care ---
Author Name Unknown Organization [facility] Address [address] [place] [address] Phone [phone] Care Team Providers Care Water Project Engineer Name Role Phone Keith Cross MD Primary Care Provider [phone] Reason for Visit * Reason Onset Date Comments Hospital Follow-Up 03/28/2024 MARI Encounter Details Date Type Department Care Team (Late st Contact Info) Description 03/28/[address] [address] Kaylie Peraza, RN Hospital Follow-Up (MARI/) Allergies Active Allergy Reactions Criticality Noted Date Comments Tramadol Hcl 12/08/2011 Gi upset documented as of this encounter (statuses as of 03/29/2024) Medications Medication Sig Dispensed Refills Start Date [...] 120 Capsule 5 06/19/2023 Active Neomycin-Polymyxi n-HC 3.5-47823-0 Otic Solution Administer 4 Drops into ears [...] 30 Tablet 12/12/2023 Active Vitamin D (Ergocalciferol) 54845 UNIT Oral Capsule Take 1 Capsule by [...] EVERY MORNING 90 Capsule 1 03/03/2024 Active documented as of this encounter (statuses as of 03/29/2024) Active Problems Problem Noted Date Diagnosed Date Depression with anxiety 06/16/2023 Personal history of DVT (deep vein thrombosis) 0 04/09/2021 History of pulmonary embolism 04/09/2021 ALS (amyotrophic lateral sclerosis) 05/02/2016 Orthostatic hypotension 12/18/2015 GERD (gastroesophageal reflux disease) 6 Irritable bowel syndrome with diarrhea 1 Attention deficit disorder without hyperactivity documented as of this encounter (statuses as of 03/29/2024) Resolved Problems Problem Noted Date Diagnosed Date [...] as of this encounter (statuses as of 03/29/2024) Immunizations Name Administration Dates Next Due COVID-19 [...] Miscellaneous Notes * Telephone Encounter - Kaylie Peraza RN - 03/29/2024 3:10 PM EDT Transitions of Care Note Reason for Referral:Recent Admission Phone visit for follow up: MARI Admitted to: [facility], Date: 02/16/24 Discharged to: Home, Date: 03/27/24 Diagnosis driving hospitalization: Respiratory Insufficiency Source/Contact: Spouse Called and spoke to spouse, Nellie. Patient is currently admitted to [facility] for bilateral pneumonia. * Telephone Encounter - Kaylie Peraza, RN - 03/28/2024 1:26 PM EDT Transitions of Care Note Reason for Referral:Recent Admission Phone visit for follow up: MARI Admitted to: [facility], Date: 02/16/24 Discharged to: Home, Date: 03/27/24 Diagnosis driving hospitalization: Respiratory Insufficiency LVMM for patient to return call for hospital followup MARI call. If patient calls back to the clinicplease obtain best time and number to reach patient or they can call me directly at [phone] with any questions or concerns. Please route to Kaylie Peraza RN. Thank you documented in this encounter Plan of Treatment Upcoming Encounters Date Type Department Care Team (Late st Contact Info) Description 04/08/2024 10:00 AM EDT Office Visit [address] [place] [address] Rachna De La Cruz CRNP [address] [place] [address] 04/09/2024 1:00 PM EDT Office Visit Pulmonary Medicine, [facility] [address] [place] [address] Baljit Baldwin MD [address] [place] [address] 06/17/2024 9:00 AM EDT Office Visit Family Practice [facility] [address] [place] [address] Keith Cross MD [address] [place] [address] Health Maintenance Due Date Last Done Comments [...] this encounter Medical Devices Implanted Type Area Crutcher Helper Device Identifier Shelf Expiration Date Model / Serial / Lot Graft Bone Cartilage Costl 6cm - [id number] Implanted:Qty: 1 on 06/22/2016 by Any Tovar [place] [facility] [place]: Nose [employer] 04/16/2021 [id number] / / documented as of this encounter Advance Directives * Full Code (Latest Code Status on File) Date Activated Date Inactivated Comments 07/24/2015 7:58 AM 07/24/2015 3:54 PM This order reflects the patients wishes and were consensually agreed upon. Care Teams Water Project Engineer Relationship Specialty Start Date End Date Keith Cross MD [address] [facility] [place] [address] PCP - General Family Medicine 03/23/21 documented as of this encounter
--- OUTSIDE RECORDS SUMMARY | 2024-04-20 05:31 | External Medical Summary | Summary of Care ---
Author Name Unknown Organization [facility] Address [address] [place] [address] Phone [phone] Care Team Providers Care Manager Respiratory Care Name Role Phone Keith Cross MD Primary Care Provider [phone] Reason for Visit * Reason Onset Date Comments Hospital Follow-Up 03/28/2024 MARI Encounter Details Date Type Department Care Team (Late st Contact Info) Description 03/28/[address] [address] Kaylie Peraza, RN Hospital Follow-Up (MARI/) Allergies Active Allergy Reactions Criticality Noted Date Comments Tramadol Hcl 12/08/2011 Gi upset documented as of this encounter (statuses as of 03/28/2024) Medications Medication Sig Dispensed Refills Start Date [...] 120 Capsule 5 06/19/2023 Active Neomycin-Polymyxi n-HC 3.5-13517-7 Otic Solution Administer 4 Drops into ears [...] 30 Tablet 12/12/2023 Active Vitamin D (Ergocalciferol) 36056 UNIT Oral Capsule Take 1 Capsule by [...] as of this encounter (statuses as of 03/28/2024) Active Problems Problem Noted Date Diagnosed Date Depression with anxiety 06/16/2023 Personal history of DVT (deep vein thrombosis) 0 04/09/2021 History of pulmonary embolism 04/09/2021 ALS (amyotrophic lateral sclerosis) 05/02/2016 Orthostatic hypotension 12/18/2015 GERD (gastroesophageal reflux disease) 6 Irritable bowel syndrome with diarrhea 1 Attention deficit disorder without hyperactivity documented as of this encounter (statuses as of 03/28/2024) Resolved Problems Problem Noted Date Diagnosed Date [...] as of this encounter (statuses as of 03/28/2024) Immunizations Name Administration Dates Next Due COVID-19 [...] visit for follow up: MARI Admitted to: [facility], Date: 02/16/24 Discharged to: Home, Date: 03/27/24 Diagnosis driving hospitalization: Respiratory Insufficiency LVMM for patient to return call for hospital followup MARI call. If patient calls back to the clinicplease obtain best time and number to reach patient or they can call me directly at [phone] with any questions or concerns. Please route to Kaylie Peraza, RN. Thank you documented in this encounter Plan of Treatment Upcoming Encounters Date Type Department Care Team (Late st Contact Info) Description 04/08/2024 10:00 AM EDT Office Visit Family Practice [facility] 132 [facility] [place] [address] Rachna De La Cruz CRNP 132 [facility] [place] [address] 04/09/2024 1:00 PM EDT Office Visit Pulmonary Medicine, [facility] [address] [facility] [place] [address] Baljit Baldwin [facility] [address] [facility] [place] [address] 06/17/2024 9:00 AM EDT Office Visit Family Practice [facility] [address] [place] [address] Keith Cross MD [address] [place] [address] Health Maintenance Due Date Last Done Comments [...] this encounter Medical Devices Implanted Type Area Consumer Services Consultant Device Identifier Shelf Expiration Date Model / Serial / Lot Graft Bone Cartilage Costl 6cm - [id number] Implanted:Qty: 1 on 06/22/2016 by Any Tovar MD at OR [facility] [place] N/A: Nose [employer] 04/16/2021 [id number] / / documented as of this encounter Advance Directives * Full Code (Latest Code Status on File) Date Activated Date Inactivated Comments 07/24/2015 7:58 AM 07/24/2015 3:54 PM This order reflects the patients wishes and were consensually agreed upon. Care Teams Manager Respiratory Care Relationship Specialty Start Date End Date Keith Cross MD [address] [place] [address] PCP - General Family Medicine 03/23/21 documented as of this encounter
--- OUTSIDE RECORDS SUMMARY | 2024-04-20 05:31 | External Medical Summary | Summary of Care ---
Author Name Unknown Organization [facility] Address [address] [place] [address] Phone [phone] Care Team Providers Care Condenser Operator Name Role Phone Keith Cross MD Primary Care Provider [phone] Reason for Visit * Reason Onset Date Comments Hospital Follow-Up 04/03/2024 [facility] 2nd attempt Encounter Details Date Type Department Care Team (Late st Contact Info) Description 04/03/2024 Telephone Ancillary [facility] [address] [place] [address] Silvia Correa, FARHAT Hospital Follow-Up ([facility] 2nd attempt) Allergies Active Allergy Reactions Criticality Noted Date [...] 120 Capsule 5 06/19/2023 Active Neomycin-Polymyxi n-HC 3.5-18753-9 Otic Solution Administer 4 Drops into ears [...] encounter Miscellaneous Notes * Telephone Encounter - Silvia Correa RN - 04/03/2024 1:42 PM EDT Attempted Phone Call Second Attempt Call Outcome Left Voicemail/Message - left [employer] message * Telephone Encounter - Silvia Correa RN - 04/03/2024 11:17 AM EDT Transitions of Care Note Reason for Referral:Recent Admission Phone visit for follow up: MARI Admitted to: [facility], Date: 03/27 Discharged to: Home, Date: 04/02 Diagnosis driving hospitalization: Pneumonia Attempted Phone Call First Attempt Call Outcome Left Voicemail/Message documented in this encounter Plan of Treatment Upcoming Encounters Date Type Department Care Team (Late st Contact Info) Description 04/08/2024 10:00 AM EDT [facility] [place] [address] Rachna De La Cruz CRNP [address] [place] [address] 04/09/2024 1:00 PM EDT Office Visit Pulmonary Medicine, [facility] [place] [address] Baljit Baldwin MD [address] [place] [address] 06/17/2024 9:00 AM EDT Office Visit Family Practice [facility] [address] [place] [address] Keith Cross MD [address] [place] [address] Health Maintenance Due Date Last Done Comments [...] encounter Medical Devices Implanted Type Area Senior Product Engineer Device Identifier Shelf Expiration Date Model / Serial / Lot Graft Bone Cartilage Costl 6cm - [id number] Implanted:Qty: 1 on 06/22/2016 by Ayn Tovar MD at [place] [facility] [place] N/A: Nose [employer] 04/16/2021 [id number] / / documented as of this encounter Advance Directives * Full Code (Latest Code Status on File) Date Activated Date Inactivated Comments 07/24/2015 7:58 AM 07/24/2015 3:54 PM This order reflects the patients wishes and were consensually agreed upon. Care Teams Condenser Operator Relationship Specialty Start Date End Date Keith Cross MD [address] [place] [address] PCP - General Family Medicine 03/23/21 documented as of this encounter
--- OUTSIDE RECORDS SUMMARY | 2024-04-20 05:31 | External Medical Summary | Summary of Care ---
Author Name Unknown Organization [facility] Address [address] [place] [address] Phone [phone] Care Team Providers Care Aircraft Fuselage Framer Name Role Phone Jaclyn Gamboa MD Primary Care Provider [phone] Reason for Visit * Reason Onset Date Comments Medication Refill 04/03/2024 Encounter Details Date Type Department Care Team (Late st Contact Info) Description 04/03/2024 Refill Family Practice [facility] [address] [facility] [place] [id number] Jaclyn Gamboa MD [address] [place] [facility] [place] [address] Allergies Active Allergy Reactions Criticality Noted Date Comments Tramadol Hcl 12/08/2011 Gi upset documented as of this encounter (statuses as of 04/03/2024) Medications Medication Sig Dispensed Refills Start Date [...] 120 Capsule 5 06/19/2023 Active Neomycin-Polymyx in-HC 3.5-90569-4 Otic Solution Administer 4 Drops into ears [...] Capsule 1 03/03/2024 Active Vitamin D (Ergocalciferol) 32175 UNIT Oral Capsule Take 1 Capsule by mouth once a week. 12 Capsule 04/03/2024 Active Vitamin D (Ergocalciferol) 02945 UNIT Oral Capsule Take 1 Capsule by mouth once a week. 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 Authorizing Provider: JACLYN GAMBOA * Telephone Encounter - Kiki Vaughan MED ASSIST - 04/03/2024 2:34 PM EDT Pending Prescriptions: Disp Refills Vitamin D (Ergocalciferol) 04037 UNIT Oral*12 Cap*0 Sig: Take 1 Capsule by mouth once a week. * Telephone Encounter - Conchis Balderas OSA - 04/03/2024 11:58 AM EDT Did you pend patient's preferred pharmacy and medication before forwarding?yes Pharmacy: [id number] [address] [place] Pending Prescriptions: Disp Refills Vitamin D (Ergocalciferol) 94367 UNIT Ora*12 Cap*0 Sig: Take 1 Capsule by mouth once a week. Last Visit: 08/23/2023 (in office), 11/27/2023 (telemedicine) Next Visit: 04/08/2024 If no future appointments scheduled, and last appointment is greater than a year ago, please schedule patient for a follow-up appointment Last date the medication was ordered: 12.26.23 Is this request for a controlled substance?No [...] 10:00 AM EDT Office Visit Family Practice [facility] [address] [place] [address] Rachna De La Cruz CRNP [address] [place] [address] 04/09/2024 1:00 PM EDT Office Visit Pulmonary Medicine, [facility] [address] [place] [address] Baljit Baldwin MD [address] [place] [address] 06/17/2024 9:00 AM EDT Office Visit Family Practice [facility] [place] [address] Jaclyn Gamboa MD [address] [place] [address] Health Maintenance Due Date Last Done Comments [...] this encounter Medical Devices Implanted Type Area Seam Rubbing Machine Operator Device Identifier Shelf Expiration Date Model / Serial / Lot Graft Bone Cartilage Costl 6cm - [id number] Implanted:Qty: 1 on 06/22/2016 by Any Tovar [place] [facility] [place] Nose [employer] 04/16/2021 [id number] / / documented as of this encounter Advance Directives * Full Code (Latest Code Status on File) Date Activated Date Inactivated Comments 07/24/2015 7:58 AM 07/24/2015 3:54 PM This order reflects the patients wishes and were consensually agreed upon. Care Teams Aircraft Fuselage Framer Relationship Specialty Start Date End Date Jaclyn Gamboa MD [address] [facility] [place] [address] PCP - General Family Medicine 03/23/21 documented as of this encounter
[2024-04-20 06:34] LABS: Basophils # (auto) 0.03 K/uL (0.00-0.20); Basophils % (auto) 0.6 %; Eosinophils # (auto) 0.15 K/uL (0.00-0.50); Eosinophils % (auto) 3.2 %; Hematocrit (blood only) 32.3 % (42.0-52.0); Hemoglobin 10.3 g/dl (14.0-18.0); Immature Granulocytes # (auto) 0.01 K/uL (0.01-0.20); Immature Granulocytes % (auto) 0.2 %; Lymphocytes # (auto) 0.86 K/uL (1.20-3.40); Lymphocytes % (auto) 18.2 %; Mean Corpuscular Hemoglobin 26.5 pg (25.0-34.0); Mean Corpuscular Hgb Conc 31.9 g/dL (32.0-36.0); Mean Platelet Volume 11.4 fL (9.4-12.4); Monocytes # (auto) 0.31 K/uL (0.11-0.59); Monocytes % (auto) 6.6 %; Neutrophils # (auto) 3.36 K/uL (1.40-6.50); Neutrophils % (auto) 71.2 %; Platelet Count 291 K/uL (130-400); RDW Coefficient of Variation 15.2 % (11.5-14.5); Red Blood Count 3.89 M/uL (4.70-6.10); White Blood Count 4.72 K/ul (4.8-10.8)
[2024-04-20] MEDS: SODIUM CHLORIDE 0.9% 500 ML IV ONE ×2 (06:35→10:21)
--- NOTE | 2024-04-20 06:39 | Emergency Department Note ---
Impression & Plan Tachycardia, ALS (amyotrophic lateral sclerosis), Acute UTI, Anemia ED Provider Note NAME: CRIS STEEN AGE: 49 SEX: M : 1975 ARRIVES VIA: Ambulance INFORMANT: [ems, nursing, ] ED PROVIDER(S): [Jose Solano MD] CHIEF COMPLAINT: Shortness of breath HISTORY OF PRESENT ILLNESS: The patient is a 49-year-old male with ALS. He has a tracheostomy, condom catheter, PEG tube. The patient for the last few days has been having some increased secretions via his tracheostomy. Today, he was more short of breath and was asking to come to the hospital. As per his , there has been no fever. She did notice a blood clot in his urine recently. He has occasionally complained of some abdominal upset. As per his , when respiratory addressed his tracheostomy here at the hospital, the secretions were cleared and he seemed to improve. PMHx/PSHx/Social Hx: See Below PHYSICAL EXAM: GENERAL: Patient is in no acute distress. HEENT: No acute trauma, normocephalic atraumatic, mucous membranes moist, no nasal congestion. NECK: No stridor, no adenopathy, tracheostomy in place. LUNGS: Coarse breath sounds bilaterally, no wheezing. No obvious respiratory distress. HEART: Very mildly tachycardic, regular rhythm, no murmurs. ABDOMEN: Soft, nontender, no peritonitis. There is a feeding tube in the left upper quadrant. EXTREMITIES: No cyanosis. There is atrophy of upper and lower extremity musculature. NEUROLOGIC: Easily arousable. No real movement of his upper or lower extremities. SKIN: No jaundice, no diaphoresis. Groin: Condom catheter in place with some dark/cloudy urine in the Jean Baptiste bag. DIFFERENTIAL DIAGNOSIS: UTI, bronchitis, pneumonia, aspiration, viral illness, dehydration, electrolyte imbalance, has. EMERGENCY DEPARTMENT PROCEDURES: MEDICAL DECISION MAKING: There is no leukocytosis. The patient does have a mild anemia however, this is baseline looking back at previous testing. There was a normal platelet count. There was no renal failure or significant electrolyte abnormality. No concerning liver enzyme elevation. No evidence for pancreatitis. ECG shows a sinus rhythm, no obvious ischemia. Cardiac enzyme testing x 1 is not consistent with acute cardiac injury. Urinalysis does show findings of infection. Respiratory bio fire was negative. Chest x-ray shows some basilar congestion which appears chronic. On exam, the patient was mildly tachycardic. He was not in significant distress. The patient was seen by respiratory therapy upon arrival, they were able to clear and suction the tracheostomy, he seemed improved afterwards. Patient received a liter of IV saline for hydration. He was given IV ceftriaxone as antibiotic coverage. He was given a 1 hour DuoNeb. Given the ALS history, given his tachycardia, his change in behavior outpatient, the UTI findings, I do think a hospital stay would be warranted. The patient is at risk for significant worsening of his condition outpatient. I spoke with the patient and his , I did speak with case management, the on- call hospitalist was consulted. Prior/Outside records/notes reviewed: Today's EMS notes describing his presentation and transport to this hospital. ECG per my interpretation: Indication was shortness of breath. The ECG shows a normal sinus rhythm with a rate of 90. There is some baseline artifact and nonspecific ST change. There is no ST elevation, no PVCs. The QTc is 425. Continuous Cardiac Monitoring per my interpretation: An order was placed for continuous cardiac monitoring. The monitor shows a rate of 103 with sinus tachycardia. Imaging/x-ray results per my interpretation: Chest x-ray shows some bibasilar congestion similar to previous films, no CHF or obvious focal pneumonia. Chronic Medical/Social conditions affecting care: ALS with tracheostomy and PEG tube. Care/Management discussed with: Case management, the on-call hospitalist. Level of care consideration(s): After review of the information above and other included data: --I believe the patient requires escalation of care to admission Critical Care Note: I have personally spent 43 minutes of critical care time in the direct management of this patient. This includes bedside care, interpretation of diagnostic studies, and testing, discussion with consultants, patient, and family members, and other required patient management activities. This 43 minutes is in excess of all separately billable procedures. DISPOSITION: Admission Past Med/Surg History Problem List (Updated 04/20/24 @ 10:09 by Jose Solano MD) Anemia (Acute) Acute UTI (Acute) ALS (amyotrophic lateral sclerosis) (Acute) Tachycardia (Acute) Depression (11/28/12) Quadriplegia ALS (amyotrophic lateral sclerosis) Tracheostomy dependence Bilateral pleural effusion Anxiety Decreased oral intake Palliative care by specialist Advanced care planning/counseling discussion Weakness generalized Dyspnea and respiratory abnormalities Aspiration pneumonia (Acute) Acute hypercapnic respiratory failure Aspiration into respiratory tract Sepsis (Acute) Pneumonia (Acute) Pneumonia Acute hypoxemic respiratory failure (Acute) Vitamin D deficiency Neuropathy Sepsis Abdominal pain (Acute) Weakness (Acute) COVID-19 (Acute) COVID-19 Fatigue after COVID-19 vaccination (Acute) Pulmonary nodule Acute saddle pulmonary embolism Medical History Bronchitis (11/28/12) History of ventilator dependency Acute hypoxemic respiratory failure Acute dyspnea SBO (small bowel obstruction) History of pulmonary embolism ADD (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 GERD (gastroesophageal reflux disease) Surgical History H/O esophagogastroduodenoscopy (02/13/24) Esophagogastroduodenoscopy, Endoscopic percutaneous endoscopic gastrostomy placement - [facility], Hx of tracheostomy History of vasectomy H/O rhinoplasty S/P left knee arthroscopy Family History Father Pulmonary embolism Mother Hypertension Social History Smoking Status: Never smoker Second Hand Exposure: No; Do You Dip or Chew Tobacco: No; Hx Alcohol Use: No Hx Substance Use: No Preferred Language: Libyan Communication Ability: Impaired Communication Ability Comment: ALS Handkerchief Sample Clerk Required: No Beliefs That Will Affect Care: None marital status: Current Living Situation: Spouse current occupational status: employed Feels Safe at Home: Yes Assistive Devices: Mechanical Lift Allergies Allergies Allergy/AdvReac Type Severity Reaction Status Date / Time tramadol AdvReac Intermediate GI Verified 03/27/24 23:50 discomfort Home Meds Home Medications Medication Instructions Recorded Confirmed apixaban 5 mg tablet (Eliquis) 5 mg feeding tube BID 11/19/20 03/28/24 ipratropium 0.5 mg-albuterol 3 mg 3 ml inhalation BID 07/25/23 03/28/24 (2.5 mg base)/3 mL nebulization soln gabapentin 300 mg capsule 600 mg feeding tube TID 11/14/23 03/28/24 clonazepam 0.5 mg tablet 0.5 mg feeding tube TID PRN Anxiety 02/05/24 03/28/24 scopolamine base 1 mg over 3 days 1 patch topical [id number] 02/05/24 03/28/24 transdermal patch Pantoprazole/Sodium Bicarb 40 mg feeding tube QAM 03/28/24 03/28/24 albuterol sulfate 2.5 mg/3 mL 2.5 mg inhalation Q6H PRN 03/28/24 03/28/24 (0.083 %) solution for nebulization Shortness Of Breath Or Wheezing atropine 1 % eye drops 1 drp buccal TID 03/28/24 03/28/24 clonazepam 1 mg tablet 0.75 mg feeding tube TID 03/28/24 03/28/24 fentanyl 25 mcg/hr transdermal 1 patch transdermal Q72H 03/28/24 03/28/24 patch furosemide 20 mg tablet (Lasix) 20 mg feeding tube DAILY 03/28/24 03/28/24 melatonin 3 mg tablet 3 mg feeding tube HS 03/28/24 03/28/24 midodrine 10 mg tablet 10 mg PO TID 03/28/24 03/28/24 mirtazapine 7.5 mg tablet 7.5 mg feeding tube HS 03/28/24 03/28/24 olanzapine 5 mg tablet 5 mg feeding tube DAILY 03/28/24 03/28/24 oxycodone 5 mg tablet 7.5 mg feeding tube Q4H PRN Pain, 03/28/24 03/28/24 Moderate potassium bicarbonate-citric acid 25 meq feeding tube DAILY 03/28/24 03/28/24 25 mEq effervescent tablet Previous Rx's Medication Instructions Recorded amoxicillin 400 mg-potassium 10 ml G-tube BID #280 mL 04/01/24 clavulanate 57 mg/5 mL oral suspension escitalopram oxalate 10 mg tablet 30 mg (3 x 10 mg) feeding tube QAM 04/02/24 (Lexapro) #90 tabs Results & Data (ED) Vital Signs Vital Signs - 24 hr 04/20/24 05:27 04/20/24 05:33 04/20/24 05:33 Temperature 36.9 C Temperature Source Oral Pulse Rate 108 H 103 H Pulse Rate [Apical] Pulse Rhythm Regular Pulse Rhythm [Apical] Pulse Strength Normal Pulse Strength [Apical] Respiratory Rate 17 Respiratory Effort / Characteristics Non-Labored Spontaneous Respiratory Depth Normal Normal Respiratory Pattern Regular Blood Pressure 118/79 Blood Pressure [Right Arm] Blood Pressure Mean 92 Blood Pressure Mean [Right Arm] Blood Pressure Position [Right Arm] Pulse Oximetry 90 Oxygen Delivery Method Mechanical Vent Trach Collar Oxygen Flow Rate Sepsis Recent Fever Within 48 Hours No Sepsis New/Unexplained Change in Mental Status No Sepsis Action Taken by Nursing No Action Required 04/20/24 05:33 04/20/24 05:33 04/20/24 05:58 Temperature 36.9 C Temperature Source Oral Pulse Rate 107 H Pulse Rate [Apical] 103 H Pulse Rhythm Irregular Pulse Rhythm [Apical] Regular Pulse Strength Pulse Strength [Apical] Normal Respiratory Rate 17 16 Respiratory Effort / Characteristics Non-Labored Spontaneous Respiratory Depth Normal Respiratory Pattern Regular Blood Pressure Blood Pressure [Right Arm] 118/79 Blood Pressure Mean Blood Pressure Mean [Right Arm] 92 Blood Pressure Position [Right Arm] Pulse Oximetry 90 96 Oxygen Delivery Method Mechanical Vent Trach Collar Mechanical Vent Trach Collar Mechanical Vent Trach Collar Oxygen Flow Rate Sepsis Recent Fever Within 48 Hours Sepsis New/Unexplained Change in Mental Status Sepsis Action Taken by Nursing 04/20/24 06:48 04/20/24 07:29 04/20/24 09:00 Temperature Temperature Source Pulse Rate Pulse Rate [Apical] 81 85 99 H Pulse Rhythm Pulse Rhythm [Apical] Regular Regular Pulse Strength Pulse Strength [Apical] Normal Normal Respiratory Rate 17 20 18 Respiratory Effort / Characteristics Non-Labored Spontaneous Spontaneous Non-Labored Respiratory Depth Normal Normal Respiratory Pattern Regular Regular Blood Pressure Blood Pressure [Right Arm] 98/75 L 99/73 L Blood Pressure Mean Blood Pressure Mean [Right Arm] 82 81 Blood Pressure Position [Right Arm] Lying Pulse Oximetry 97 100 100 Oxygen Delivery Method Mechanical Vent Mechanical Vent Trach Collar Oxygen Flow Rate 4 Sepsis Recent Fever Within 48 Hours Sepsis New/Unexplained Change in Mental Status Sepsis Action Taken by Usp Medications Current Medication List: was personally reviewed by me Laboratory Data Attestation: I reviewed the patient's lab results. 04/20/24 06:12 04/20/24 06:12 Lab Results 04/20/24 04/20/24 04/20/24 Range/Units 06:12 06:39 06:46 WBC 4.72 L (4.8-10.8) K/ul RBC 3.89 L (4.70-6.10) M/uL Hgb 10.3 L (14.0-18.0) g/dl Hct 32.3 L (42.0-52.0) % MCV 83.0 (80.0-100.0) fL MCH 26.5 (25.0-34.0) pg MCHC 31.9 L (32.0-36.0) g/dL RDW Std Deviation 46.0 (36.4-46.3) fL RDW Coeff of Hussain 15.2 H (11.5-14.5) % Plt Count 291 (130-400) K/uL MPV 11.4 (9.4-12.4) fL Immature Gran % (Auto) 0.2 % Neut % (Auto) 71.2 % Lymph % (Auto) 18.2 % [place] % (Auto) 6.6 % Eos % (Auto) 3.2 % Baso % (Auto) 0.6 % Neut # (Auto) 3.36 (1.40-6.50) K/uL Lymph # (Auto) 0.86 L (1.20-3.40) K/uL [place] # (Auto) 0.31 (0.11-0.59) K/uL Eos # (Auto) 0.15 (0.00-0.50) K/uL Baso # (Auto) 0.03 (0.00-0.20) K/uL Immature Gran # (Auto) 0.01 (0.01-0.20) K/uL Sodium 137 (136-145) mmol/L Potassium 3.7 (3.5-5.1) mmol/L Chloride 97 L (98-107) mmol/L Carbon Dioxide 32 (21-32) mmol/L Anion Gap 8 (3-11) BUN 15 (6-23) mg/dl Creatinine < 0.20 L (0.6-1.4) mg/dl Est Cr Clr Drug Dosing 461.4 ml/min Est GFR ( Amer) > 150.0 ml/min Est GFR (Non-Af Amer) > 150.0 ml/min BUN/Creatinine Ratio TNP Glucose 103 H (70-99(Fasting)) mg/dl Calcium 9.6 (8.6-10.3) mg/dl Magnesium 2.0 (1.7-2.4) mg/dl Total Bilirubin 0.3 (0.2-1.0) mg/dl AST 19 (13-39) U/L ALT 15 (7-52) U/L Alkaline Phosphatase 90 (34-104) U/L Troponin I High Sens 2.6 (0-20) pg/ml Total Protein 7.7 (6.0-8.3) gm/dl Albumin 3.9 (3.4-5.0) gm/dl Globulin 3.8 (2.5-4.0) gm/dl Albumin/Globulin Ratio 1.0 (0.9-2) Lipase 11 (11-82) U/L Urine Color Yellow Urine Appearance Cloudy A (Clear) Urine pH 6.0 (4.5-7.5) Ur Specific [place] 1.016 (1.000-1.030) Urine Protein Negative (Negative) Urine Glucose (UA) Negative (Negative) Urine Ketones Negative (Negative) Urine Blood Trace H (Negative) Urine Nitrite Positive A (Negative) Urine Bilirubin Negative (Negative) Urine Urobilinogen Negative (Negative) Ur Leukocyte Esterase 3+ H (Negative) Urine WBC (Auto) >50 H (0-5) /hpf Urine RBC (Auto) 6-10 H (0-2) /hpf U Hyaline Cast (Auto) 3-5 H (0-2) /lpf U Epithel Cells (Auto) 3-5 H (0-2) /hpf Urine Bacteria (Auto) 4+ H (None Seen) Calcium Oxalate Crystal Present A (None Prsent) Uric Acid Crystals Present A (None Prsent) Granular Casts Present A (None Prsent) /lpf Adenovirus (PCR) Not Detected (NotDetected) B. pertussis DNA (PCR) Not Detected (NotDetected) B.parapertussis DNA PCR Not Detected (NotDetected) C. pneumoniae DNA (PCR) Not Detected (NotDetected) Coronavirus OC43 (PCR) Not Detected (NotDetected) Coronavirus HKU1 (PCR) Not Detected (NotDetected) Coronavirus 229E (PCR) Not Detected (NotDetected) SARS-CoV-2 (PCR) Not Detected (NotDetected) Coronavirus NL63 (PCR) Not Detected (NotDetected) Human Metapneumovir PCR Not Detected (NotDetected) Influenza Type A (PCR) Not Detected (NotDetected) Influenza Type B (PCR) Not Detected (NotDetected) M. pneumoniae (PCR) Not Detected (NotDetected) Parainfluenza 1 (PCR) Not Detected (NotDetected) Parainfluenza 2 (PCR) Not Detected (NotDetected) Parainfluenza 3 (PCR) Not Detected (NotDetected) Parainfluenza 4 (PCR) Not Detected (NotDetected) RSV (PCR) Not Detected (NotDetected) Entero/Rhino (PCR) Not Detected (NotDetected) Administered Medications Discontinued Medications Albuterol (Albut/Ipratrop 3mg/0.5mg Neb 3 Ml Vial) 3 ml NEB NOW STA; Protocol Stop: 04/20/24 06:35 Last Admin: 04/20/24 07:07 Dose: 3 ml Documented By: ACE Albuterol (Albut/Ipratrop 3mg/0.5mg Neb 3 Ml Vial) 12 ml NEB ONE ONE; Protocol Stop: 04/20/24 07:25 Last Admin: 04/20/24 08:37 Dose: Not Given Documented By: EPIFANIO Sodium Chloride (Nss) 500 mls @ 999 mls/hr IV .Q31M ONE Stop: 04/20/24 06:57 Last Infusion: 04/20/24 08:00 Dose: Infused Documented By: Admin: 04/20/24 06:35 Dose: 999 mls/hr Documented By: DEXTER Ceftriaxone Sodium (Rocephin) 2,000 mg in 50 mls @ 100 mls/hr IV NOW STA Stop: 04/20/24 09:13 Last Admin: 04/20/24 09:45 Dose: 100 mls/hr Documented By: SHAY Imaging Data Radiologist's Impression: Chest X-Ray 04/20/24 05:56 XR chest 1V portable CLINICAL HISTORY: Chest pain, nonspecific COMPARISON STUDY: Chest CT March 28, 2024. Chest radiograph April 01, 2024. FINDINGS: Tracheostomy tube is in place. There is no pneumothorax. No definite pleural effusions are identified. There are persistent bibasilar airspace opacities, similar to prior exam. Cardiomediastinal silhouette is stable. No evidence for pulmonary edema. IMPRESSION: No significant change in bibasilar opacities suggestive of pneumonia or aspiration pneumonitis. ACT 112: Negative or not required by law. Electronically signed by: Jules Cameron M.D. 04/20/2024 7:32 AM Discharge Plan Visit Data Chief Complaint: Shortness of Breath/Dyspnea Stated Complaint: SOB, Trach Problems, Chest Pain ED Provider: Jose Solano Discharge Problem: Tachycardia, ALS (amyotrophic lateral sclerosis), Acute UTI, Anemia Patient Disposition: Admitted As Inpatient Condition: Fair Forms Stand Alone Forms: [facility], Important Visit Information Prescriptions Prescriptions: No Action ipratropium-albuterol 0.5 mg-3 mg(2.5 mg base)/3 mL solution for nebulization 3 ml INHALATION BID Eliquis 5 mg tablet 5 mg feeding tube BID gabapentin 300 mg capsule 600 mg feeding tube TID scopolamine base 1 mg over 3 days patch 3 day 1 patch topical [id number] clonazepam 0.5 mg tablet 0.5 mg feeding tube TID PRN (Reason: Anxiety) albuterol sulfate 2.5 mg /3 mL (0.083 %) Solution For Nebulization 2.5 mg INHALATION Q6H PRN (Reason: Shortness Of Breath Or Wheezing) olanzapine 5 mg Tablet 5 mg feeding tube DAILY clonazepam 1 mg Tablet 0.75 mg feeding tube TID melatonin 3 mg Tablet 3 mg feeding tube HS furosemide [Lasix] 20 mg Tablet 20 mg feeding tube DAILY fentanyl 25 mcg/hr Patch 72 Hour 1 patch TRANSDERMAL Q72H atropine 1 % Drops 1 drp BUCCAL TID potassium bicarb-citric acid 25 mEq Tablet, Effervescent 25 meq feeding tube DAILY oxycodone 5 mg Tablet 7.5 mg feeding tube Q4H PRN (Reason: Pain, Moderate) midodrine 10 mg Tablet 10 mg PO TID Rx Instructions: do not give last dose of day after 6PM or within 4 hrs of bedtime mirtazapine 7.5 mg Tablet 7.5 mg feeding tube HS Pantoprazole/Sodium Bicarb 40 mg feeding tube QAM Rx Instructions: STRENGTH 2 MG/ 1 ML---TAKE 40 MG/20 ML amoxicillin-pot clavulanate 400-57 mg/5 mL Suspension For Reconstitution 10 ml G-tube BID Qty: 280 0RF escitalopram oxalate [Lexapro] 10 mg Tablet 30 mg feeding tube QAM Qty: 90 0RF Referrals Referrals: Keith Cross MD [Primary Care Provider] - Discharge Problem: Anemia Qualifiers: Anemia type: unspecified type Qualified Code(s): D64.9 - Anemia, unspecified
[2024-04-20 06:51] LABS: Alanine Aminotransferase 15 U/L (7-52); Albumin Level 3.9 gm/dl (3.4-5.0); Alkaline Phosphatase 90 U/L (34-104); Anion Gap 8 (3-11); Aspartate Aminotransferase 19 U/L (13-39); Bilirubin,Total 0.3 mg/dl (0.2-1.0); Blood Urea Nitrogen 15 mg/dl (6-23); Calcium 9.6 mg/dl (8.6-10.3); Carbon Dioxide 32 mmol/L (21-32); Chloride 97 mmol/L (98-107); Creatinine Clr Calc Pharmacy 461.4 ml/min; Est GFR (African American) > 150.0 ml/min; Est GFR (Non-African American) > 150.0 ml/min; Globulin 3.8 gm/dl (2.5-4.0); Glucose 103 mg/dl (70-99(Fasting)); Lipase 11 U/L (11-82); Potassium 3.7 mmol/L (3.5-5.1); Sodium 137 mmol/L (136-145); Total Protein 7.7 gm/dl (6.0-8.3)
[2024-04-20 07:00] LABS: Troponin I High Sensitivity 2.6 pg/ml (0-20)
[2024-04-20] MEDS: ALBUT/IPRATROP 3MG/0.5MG NEB 3 ML VIAL NEB STA (07:07)
--- NOTE | 2024-04-20 07:33 | XRay Report ---
XR chest 1V portable CLINICAL HISTORY: Chest pain, nonspecific COMPARISON STUDY: Chest CT March 28, 2024. Chest radiograph April 01, 2024. FINDINGS: Tracheostomy tube is in place. There is no pneumothorax. No definite pleural effusions are identified. There are persistent bibasilar airspace opacities, similar to prior exam. Cardiomediastin al silhouette is stable. No evidence for pulmonary edema. IMPRESSION: No significant change in bibasilar opacities suggestive of pneumonia or aspiration pneum onitis. ACT 112: Negative or not required by law. Electronically signed by: Jules Cameron M.D. 04/20/2024 7:32 AM
[2024-04-20 08:15] LABS: Appearance Urine Cloudy (Clear); Bacteria Urine Automated 4+ (None Seen); Bilirubin Urine Negative (Negative); Blood Urine Trace (Negative); Color Urine Yellow; Glucose Urine UA Negative (Negative); Ketones Urine Negative (Negative); Leukocyte Esterase Urine 3+ (Negative); Nitrite Urine Positive (Negative); Protein Urine Negative (Negative); Specific Gravity Urine 1.016 (1.000-1.030); Urobilinogen Urine Negative (Negative); WBC Urine Automated >50 /hpf (0-5)
[2024-04-20 08:16] LABS: Adenovirus PCR Not Detected (NotDetected); Bordetella parapertussis PCR Not Detected (NotDetected); Bordetella pertussis PCR Not Detected (NotDetected); Chlamydia pneumoniae PCR Not Detected (NotDetected); Coronavirus 229E PCR Not Detected (NotDetected); Coronavirus CoV-2 (COVID19)PCR Not Detected (NotDetected); Coronavirus HKU1 PCR Not Detected (NotDetected); Coronavirus NL63 PCR Not Detected (NotDetected); Coronavirus OC43PCR Not Detected (NotDetected); Human Metapneumovirus PCR Not Detected (NotDetected); Influenza A PCR Not Detected (NotDetected); Influenza B PCR Not Detected (NotDetected); Mycoplasma pneumoniae PCR Not Detected (NotDetected); Parainfluenza Virus 1 PCR Not Detected (NotDetected); Parainfluenza Virus 2 PCR Not Detected (NotDetected); Parainfluenza Virus 3 PCR Not Detected (NotDetected); Parainfluenza Virus 4 PCR Not Detected (NotDetected); Respiratory Syncytial VirusPCR Not Detected (NotDetected); Rhinovirus/Enterovirus PCR Not Detected (NotDetected)
[2024-04-20 08:27] LABS: Calcium Oxalate Crystals Urine Present (None Prsent); Uric Acid Crystals Urine Present (None Prsent)
[2024-04-20 08:28] LABS: Granular Casts Urine Present /lpf (None Prsent)
[2024-04-20] MEDS: ALBUT/IPRATROP 3MG/0.5MG NEB 3 ML VIAL NEB ONE (08:37)
--- NOTE | 2024-04-20 08:52 | Electrocardiogram Report ---
Test Reason : Blood Pressure : */* mmHG Vent. Rate : 90 BPM Atrial Rate : 90 BPM P-R Int : 160 ms QRS Dur : 80 ms QT Int : 348 ms P-R-T Axes : 88 74 94 degrees QTcB Int : 425 ms Normal sinus rhythm Minor Nonspecific T wave abnormality Lateral leads Abnormal ECG When compared with ECG of 27-Mar-2024 23:45, No significant change Confirmed by Keith Sanz ([id number]) on 04/20/2024 8:51:43 AM Referred By: Confirmed By: Keith Sanz
[2024-04-20] MEDS: cefTRIAXone SODIUM 2,000 MG/50 ML BAG IV STA (09:45)
--- NOTE | 2024-04-20 10:17 | History & Physical Report ---
Date of Service April 20, 2024 Assessment & Plan (1) Sepsis: (2) Acute UTI: (3) Acute on chronic hypoxic respiratory failure: (4) ALS (amyotrophic lateral sclerosis): (5) Quadriplegia: (6) Tracheostomy dependence: (7) Bilateral pleural effusion: (8) Ventilator dependent: Plan Patient 49-year-old gentleman acutely ill with suspected sepsis from urinary tract infection and possibly chronic aspiration exacerbating his chronic respiratory failure. Patient is at high risk for further decompensation and organ failure requires hospital level care and intervention. Care for in the ICU Consult instructor dancing Continue ventilator support Empiric antibiotics for urinary tract infection CTA of the chest to further evaluate these chronic bibasilar infiltrates, effusions and rule out PE Continue other home medications as prescribed Monitor cultures at bedside and updated plan of care Communication with instructor dancing plan to admit ICU Respiratory for continued trach care History of Present Illness Chief Complaint: Shortness of breath, chest pain, clot in urine, decline Primary Care Provider: Keith Cross MD Patient is a 49-year-old gentleman with ALS on chronic ventilator, PEG tube feedings and recurrent hospitalizations. He recently been in the hospital for an aspiration pneumonia. Came to the emergency room with above complaints. In the emergency room urinalysis was suggestive of urinary tract infection. He did require significant suctioning of the large amount of mucus and this did seem to improve his respiratory status. Patient was a little tachycardic. Appears that he is chronically hypotensive and the fact that he is on midodrine and did not receive his medications yet today however due to his overall condition was referred for evaluation for admission. Time my evaluation patient states that his chest pain and shortness of breath is completely resolved. His is at the bedside and essentially all the history is obtained from her. She is a primary caregiver and does a great job of taking care of him at home. She reports that earlier in the week did have a clot in his urine. Also noted that his urine was a little bit more concentrated and dark. Did not have a significant odor that she noticed. He does wear a condom catheter but does not have an inserted Jean Baptiste catheter chronically. And started noticing some increased sputum but it is not dark in color is not bloody. He has not had any fevers at home. However overnight started with shortness of breath and chest pain which prompted evaluation in the emergency room. Patient all states states has been having some abdominal discomfort intermittently still tolerating his tube feeds but not his full feeds as as may be normally he does. His states that he seems to have improved after he completed the antibiotics from his recent hospitalization stressed over the last couple days these few things h ave turned up. His states that he did have some constipation in the week which resolved with treatment with MiraLAX no blood in the stool. No vomiting. Has not needed increased amounts of oxygen that she knows of. They are very consistent with doing his chest therapies and suctioning and trach care. Allergies Allergy/AdvReac Type Severity Reaction Status Date / Time tramadol AdvReac Intermediate GI Verified 03/27/24 23:50 discomfort Home Medications Medication Instructions Recorded Confirmed Type apixaban 5 mg tablet (Eliquis) 5 mg feeding tube BID 11/19/20 03/28/24 History ipratropium 0.5 mg-albuterol 3 mg 3 ml inhalation BID 07/25/23 03/28/24 History (2.5 mg base)/3 mL nebulization soln gabapentin 300 mg capsule 600 mg feeding tube TID 11/14/23 03/28/24 History clonazepam 0.5 mg tablet 0.5 mg feeding tube TID PRN Anxiety 02/05/24 03/28/24 History scopolamine base 1 mg over 3 days 1 patch topical [id number] 02/05/24 03/28/24 History transdermal patch Pantoprazole/Sodium Bicarb 40 mg feeding tube QAM 03/28/24 03/28/24 History albuterol sulfate 2.5 mg/3 mL 2.5 mg inhalation Q6H PRN 03/28/24 03/28/24 History (0.083 %) solution for nebulization Shortness Of Breath Or Wheezing atropine 1 % eye drops 1 drp buccal TID 03/28/24 03/28/24 History clonazepam 1 mg tablet 0.75 mg feeding tube TID 03/28/24 03/28/24 History fentanyl 25 mcg/hr transdermal 1 patch transdermal Q72H 03/28/24 03/28/24 History patch furosemide 20 mg tablet (Lasix) 20 mg feeding tube DAILY 03/28/24 03/28/24 History melatonin 3 mg tablet 3 mg feeding tube HS 03/28/24 03/28/24 History midodrine 10 mg tablet 10 mg PO TID 03/28/24 03/28/24 History mirtazapine 7.5 mg tablet 7.5 mg feeding tube HS 03/28/24 03/28/24 History olanzapine 5 mg tablet 5 mg feeding tube DAILY 03/28/24 03/28/24 History oxycodone 5 mg tablet 7.5 mg feeding tube Q4H PRN Pain, 03/28/24 03/28/24 History Moderate potassium bicarbonate-citric acid 25 meq feeding tube DAILY 03/28/24 03/28/24 History 25 mEq effervescent tablet amoxicillin 400 mg-potassium 10 ml G-tube BID #280 mL 04/01/24 Rx clavulanate 57 mg/5 mL oral suspension escitalopram oxalate 10 mg tablet 30 mg (3 x 10 mg) feeding tube QAM 04/02/24 Rx (Lexapro) #90 tabs Past Med/Surg History Problem List (Updated 04/20/24 @ 10:15 by Bobo Zazueta DO) Ventilator dependent Acute on chronic hypoxic respiratory failure Anemia (Acute) Acute UTI (Acute) ALS (amyotrophic lateral sclerosis) (Acute) Tachycardia (Acute) Depression (11/28/12) Quadriplegia ALS (amyotrophic lateral sclerosis) Tracheostomy dependence Bilateral pleural effusion Anxiety Decreased oral intake Palliative care by specialist Advanced care planning/counseling discussion Weakness generalized Dyspnea and respiratory abnormalities Aspiration pneumonia (Acute) Acute hypercapnic respiratory failure Aspiration into respiratory tract Sepsis (Acute) Pneumonia (Acute) Pneumonia Acute hypoxemic respiratory failure (Acute) Vitamin D deficiency Neuropathy Sepsis Abdominal pain (Acute) Weakness (Acute) COVID-19 (Acute) COVID-19 Fatigue after COVID-19 vaccination (Acute) Pulmonary nodule Acute saddle pulmonary embolism Medical History Depression (11/28/12) Bronchitis (11/28/12) History of ventilator dependency Acute hypoxemic respiratory failure Acute dyspnea SBO (small bowel obstruction) History of pulmonary embolism ADD (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 GERD (gastroesophageal reflux disease) ALS (amyotrophic lateral sclerosis) Surgical History H/O esophagogastroduodenoscopy (02/13/24) Esophagogastroduodenoscopy, Endoscopic percutaneous endoscopic gastrostomy placement - Saul Pitts Hx of tracheostomy History of vasectomy H/O rhinoplasty S/P left knee arthroscopy Family History Father Pulmonary embolism Mother Hypertension Social History Smoking Status: Never smoker Second Hand Exposure: No; Do You Dip or Chew Tobacco: No; Hx Alcohol Use: No Hx Substance Use: No Preferred Language: Martiniquais Communication Ability: Impaired Communication Ability Comment: 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 Sclera clear, Neck: Tracheostomy in place, clean, on chronic ventilator Lungs: Decreased breath sounds, some coarse rhonchi at bases, no wheezes CV: S1-S2, regular, slightly tachycardic Abdomen: Soft, nontender, nondistended, PEG tube in place, site clean and dry Extremities: No significant edema Musculoskeletal: No significant joint tenderness Neuro: Generalized weakness and deficits associated with ALS Psych: Cooperative, normal mood Results & Data Results & Data Vital Signs (Past 12 Hours) Vital Signs Temp Pulse Pulse Resp BP BP Pulse Ox 04/20/24 09:00 99 H 18 99/73 L 100 04/20/24 07:29 85 20 100 04/20/24 06:48 81 17 98/75 L 97 04/20/24 05:58 107 H 16 96 04/20/24 05:33 36.9 C 103 H 17 118/79 90 04/20/24 05:33 04/20/24 05:33 36.9 C 103 H 17 118/79 90 04/20/24 05:27 108 H O2 Del Method O2 Flow Rate 04/20/24 09:00 Trach Collar 04/20/24 07:29 Mechanical Vent 4 04/20/24 06:48 Mechanical Vent 04/20/24 05:58 Mechanical Vent, Trach Collar 04/20/24 05:33 Mechanical Vent, Trach Collar 04/20/24 05:33 Mechanical Vent, Trach Collar 04/20/24 05:33 Mechanical Vent, Trach Collar 04/20/24 05:27 Diagnostic Findings Reviewed imaging, laboratory and diagnostic studies. Pertinent findings as below. Personally reviewed chest x-ray some chronic bibasilar infiltrates Personally reviewed EKG, sinus rhythm, no acute ST-T wave changes, heart rate 90 Urinalysis reviewed, significant bacteria, nitrates and leukocyte esterase Respiratory viral panel negative WBCs 4.7, hemoglobin 10.3, platelets 291 Code Status & VTE Plan VTE Prophylaxis Plan VTE Prophylaxis will be ordered: Yes
[2024-04-20] MEDS: OPTIRAY 320 125ml IV ONE (10:20)
--- NOTE | 2024-04-20 10:32 | CT Scan Report ---
CT ANGIOGRAPHY OF THE CHEST, PULMONARY EMBOLUS PROTOCOL CLINICAL HISTORY: Respiratory distress. Evaluate for pulmonary embolus. COMPARISON STUDY: Chest CT March 28, 2024. Chest radiograph performed earlier today. TECHNIQUE: Following IV administration of 88 mL of Optiray, helical axial images of the chest were ob tained utilizing the pulmonary embolus protocol. Maximal intensity projections and sagittal and vignesh nal reformats were viewed on an independent 3D workstation. IV contrast was administered without com plication. Automated exposure control was utilized for the study. A dose lowering technique was uti lized adhering to the principles of ALARA. CT DOSE: 558.34 mGy.cm FINDINGS: No pulmonary emboli are identified. There is no thoracic aortic dissection. Size of the he art is normal. There is no pericardial effusion. Tracheostomy tube is in place. There are secretions within the trachea, above the balloon. There are extensive secretions within the bilateral lower lobe bronchi, left greater than right. Left lower lobe bronchi are entirely opacified. Similar findings w ere present on prior CT as well. Extensive left lower lobe airspace opacity persists. This has slight ly decreased in extent since prior exam. There is mild subpleural right lower lobe opacity, improved since prior CT. There is no pneumothorax. Moderate right and small left pleural effusions are similar to prior CT. A few tree-in-bud nodules within the upper lobes are present. There is no thoracic lymp hadenopathy. Gastrostomy tube is incidentally noted. IMPRESSION: 1. No pulmonary emboli identified. 2. Extensive left lower lobe consolidation, slightly decreased since prior exam. This favors aspirati on pneumonitis or pneumonia. Interval decrease in right lower lobe subpleural opacity which could ref lect aspiration pneumonitis, pneumonia or atelectasis. Extensive bilateral lower lobe secretions, gre ater on the left. 3. Moderate right and small left pleural effusions, unchanged. ACT 112: Negative or not required by law. Electronically signed by: Jules Cameron M.D. 04/20/2024 10:30 AM
--- NOTE | 2024-04-20 11:38 | Critical Care Consultation ---
Date of Consultation April 20, 2024 Assessment & Plan (1) Aspiration pneumonia: Patient at risk for recurrent aspiration pneumonia due to poor cough mechanism from ALS. Will start percussive vest therapy 4 times a day and hypertonic saline twice daily. Continue frequent suctioning. Start CoughAssist 4 times daily. Start Zosyn. Will bronch today for airway clearance and cultures. and patient consent to bronch and sedation with ketamine for procedure. (2) Bilateral pleural effusion: Discontinue IV fluids. Suspect element of low oncotic pressure leading to dependent pleural effusions bilaterally. (3) ALS (amyotrophic lateral sclerosis): Recommend palliative care consultation for ongoing discussions regarding goals of care as the patient remains full code. (4) GERD (gastroesophageal reflux disease): Recommend continued antireflux medications. (5) Tracheostomy dependence: Patient is fully dependent on ventilator and tracheostomy. Will continue ventilator. (6) Complicated UTI (urinary tract infection): Condom cath present currently. Will replace with indwelling walters and recheck urine. Plan Thanks for the consult. Will follow. Patient's was at bedside and updated. History of Present Illness Reason for Consultation: Recurrent pneumonia and UTI with sepsis History of Present Illness 49-year-old male well-known to me with history of ALS on chronic ventilator, PEG tube and recurrent hospitalizations due to pneumonia presenting to the ER. Patient has been afebrile at home. The noted a blood clot in his urine recently and he had a UA in the ER which revealed signs of a possible urinary tract infection. CT of the chest in the ER also revealed bilateral lower lobe infiltrates and bilateral effusions. Labs were largely unremarkable except for mild anemia which is actually improved compared to baseline. Patient is hemodynamically stable at present. Allergies Allergy/AdvReac Type Severity Reaction Status Date / Time tramadol AdvReac Intermediate GI Verified 03/27/24 23:50 discomfort Home Medications Medication Instructions Recorded Confirmed Type apixaban 5 mg tablet (Eliquis) 5 mg feeding tube BID 11/19/20 03/28/24 History ipratropium 0.5 mg-albuterol 3 mg 3 ml inhalation BID 07/25/23 03/28/24 History (2.5 mg base)/3 mL nebulization soln gabapentin 300 mg capsule 600 mg feeding tube TID 11/14/23 03/28/24 History clonazepam 0.5 mg tablet 0.5 mg feeding tube TID PRN Anxiety 02/05/24 03/28/24 History scopolamine base 1 mg over 3 days 1 patch topical [id number] 02/05/24 03/28/24 History transdermal patch Pantoprazole/Sodium Bicarb 40 mg feeding tube QAM 03/28/24 03/28/24 History albuterol sulfate 2.5 mg/3 mL 2.5 mg inhalation Q6H PRN 03/28/24 03/28/24 History (0.083 %) solution for nebulization Shortness Of Breath Or Wheezing atropine 1 % eye drops 1 drp buccal TID 03/28/24 03/28/24 History clonazepam 1 mg tablet 0.75 mg feeding tube TID 03/28/24 03/28/24 History fentanyl 25 mcg/hr transdermal 1 patch transdermal Q72H 03/28/24 03/28/24 History patch furosemide 20 mg tablet (Lasix) 20 mg feeding tube DAILY 03/28/24 03/28/24 History melatonin 3 mg tablet 3 mg feeding tube HS 03/28/24 03/28/24 History midodrine 10 mg tablet 10 mg PO TID 03/28/24 03/28/24 History mirtazapine 7.5 mg tablet 7.5 mg feeding tube HS 03/28/24 03/28/24 History olanzapine 5 mg tablet 5 mg feeding tube DAILY 03/28/24 03/28/24 History oxycodone 5 mg tablet 7.5 mg feeding tube Q4H PRN Pain, 03/28/24 03/28/24 History Moderate potassium bicarbonate-citric acid 25 meq feeding tube DAILY 03/28/24 03/28/24 History 25 mEq effervescent tablet amoxicillin 400 mg-potassium 10 ml G-tube BID #280 mL 04/01/24 Rx clavulanate 57 mg/5 mL oral suspension escitalopram oxalate 10 mg tablet 30 mg (3 x 10 mg) feeding tube QAM 04/02/24 Rx (Lexapro) #90 tabs Patient History Medical History Bronchitis (11/28/12) History of ventilator dependency Acute hypoxemic respiratory failure Acute dyspnea SBO (small bowel obstruction) History of pulmonary embolism ADD (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 GERD (gastroesophageal reflux disease) Surgical History H/O esophagogastroduodenoscopy (02/13/24) Esophagogastroduodenoscopy, Endoscopic percutaneous endoscopic gastrostomy placement - Saul Pitts, DO Hx of tracheostomy History of vasectomy H/O rhinoplasty S/P left knee arthroscopy Family History Father Pulmonary embolism Mother Hypertension Social History Smoking Status: Never smoker Second Hand Exposure: No; Do You Dip or Chew Tobacco: No; Hx Alcohol Use: No Hx Substance Use: No Preferred Language: Welsh Communication Ability: Impaired Communication Ability Comment: 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 Patient is in no apparent distress. Patient is well-developed. Eyes: Pupils are equal round and reactive to light. Conjunctivae are normal. Anicteric sclera. Ears nose, mouth and throat: Tracheostomy in place. Neck: Trachea is midline. Visual inspection is normal. Respiratory: Coarse rhonchi bilaterally. Cardiovascular: Regular rate and rhythm. No murmurs. No edema. Gastrointestinal: Normal bowel sounds, soft, nontender and nondistended. No hepatosplenomegaly noted. Musculoskeletal: No cyanosis. Patient is able to move all extremities. Strength is 5 out of 5 in the upper and lower extremities. Skin: No rashes, warm dry and intact. Neurologic: No obvious focal neurological deficits seen. Psychiatric: Alert and oriented x3 with a euthymic affect. Results & Data Results & Data Vital Signs (Past 12 Hours) Vital Signs Temp Pulse Pulse Resp BP BP Pulse Ox 04/20/24 10:51 100 H 19 107/71 99 04/20/24 09:00 99 H 18 99/73 L 100 04/20/24 07:29 85 20 100 04/20/24 06:48 81 17 98/75 L 97 04/20/24 05:58 107 H 16 96 04/20/24 05:33 36.9 C 103 H 17 118/79 90 04/20/24 05:33 04/20/24 05:33 36.9 C 103 H 17 118/79 90 04/20/24 05:27 108 H O2 Del Method O2 Flow Rate 04/20/24 10:51 Mechanical Vent 3 04/20/24 09:00 Trach Collar 04/20/24 07:29 Mechanical Vent 4 04/20/24 06:48 Mechanical Vent 04/20/24 05:58 Mechanical Vent, Trach Collar 04/20/24 05:33 Mechanical Vent, Trach Collar 04/20/24 05:33 Mechanical Vent, Trach Collar 04/20/24 05:33 Mechanical Vent, Trach Collar 04/20/24 05:27 Coding Level of Care Code 88609 IN/OBS CONSULT LVL 5,80M Diagnoses Aspiration pneumonia J69.0 Aspiration pneumonia type: unspecified Laterality: bilateral Lung location: unspecified part of lung Bilateral pleural effusion J90 ALS (amyotrophic lateral sclerosis) G12.21 GERD (gastroesophageal reflux disease) K21.9 Tracheostomy dependence Z93.0 Complicated UTI (urinary tract infection) N39.0 (1) Aspiration pneumonia Aspiration pneumonia type: unspecified Laterality: bilateral Lung location: unspecified part of lung Qualified Code(s): J69.0 - Pneumonitis due to inhalation of food and vomit
[2024-04-20] MEDS ORDERED: STAT IV/IM STA (11:47)
[2024-04-20] MEDS: ALBUT/IPRATROP 3MG/0.5MG NEB 3 ML VIAL NEB SCH (11:55)
[2024-04-20] MEDS: ALBUT/IPRATROP 3MG/0.5MG NEB 3 ML VIAL ONE (11:58)
[2024-04-20] MEDS ORDERED: NUTREN LIQD 2.0 1,000 ML BAG PEG SCH (12:30)
--- NOTE | 2024-04-20 12:36 | Procedure Note ---
Procedure Note Date of Service April 20, 2024 PREOPERATIVE DIAGNOSIS: Recurrent aspiration pneumonia POSTOPERATIVE DIAGNOSIS: Recurrent aspiration pneumonia PROCEDURE PERFORMED: Flexible fiberoptic bronchoscopy with bronchial washings from the left lower lobe COMPLICATIONS: None. INDICATION: Clear mucous plugging and obtain cultures PROCEDURE: Written consent was obtained from the patient's and a verbal consent was obtained from the patient given his ALS. Timeout performed immediately prior to the procedure. Patient was premedicated with 50 mcg of fentanyl and 75 mg of ketamine. Patient was on mechanical ventilation throughout the procedure. Bronchoscope was inserted via the tracheostomy. Trachea and kun appeared normal. Bilateral tracheobronchial tree inspection was performed. Thick mucoid secretions were noted in the bilateral lower lobes. Washings were performed of the left lower lobe and fluid was aspirated back. This fluid was sent for culture and further analysis. Further washings were performed in the left and right lower lobes to clear the mucous plugs. No bleeding was encountered. The scope was withdrawn. The patient tolerated the procedure well. Recommendations: Likely will proceed with additional bronchoscopy tomorrow for further clearance of airways of mucous plugs. Follow culture data from the left lower lobe washings. [facility] [place] Codes (Charges) Pulmonary/Thoracic Procedure 1: Pulmonary and Thoracic: 12306 Dx bronchoscopy/wash Coding CPT Codes Pulmonary/Thoracic - Pulmonary and Thoracic: 95978 Dx bronchoscopy/wash ([id number]) Additional Codes Date of Service ([email or web address])
[2024-04-20] MEDS ORDERED: cefTRIAXone SODIUM 1,000 MG/50 ML BAG IV SCH (12:42)
[2024-04-20] MEDS ORDERED: ALUMINUM/MAGNESIUM SUSP 30 ML UDC PEG PRN (12:42)
[2024-04-20] MEDS ORDERED: PATIENT'S OWN ENTERAL FEEDING PEG SCH (12:42)
[2024-04-20] MEDS ORDERED: POLYETHYLENE (MIRALAX) 17 GM PACK PEG PRN (12:42)
[2024-04-20] MEDS ORDERED: SCOPOLAMINE 1 MG/72 HR TDSY PATCH TD SCH (12:42)
[2024-04-20] MEDS ORDERED: ACETAMINOPHEN 325 MG TAB PEG PRN (12:42)
[2024-04-20] MEDS ORDERED: clonazePAM 0.5 MG TAB PO PRN (12:42)
[2024-04-20] MEDS: fentaNYL citrate PF 100 MCG/2 ML VIAL ONE (12:44)
[2024-04-20] MEDS: KETAMINE HCL IV ONE (12:45)
[2024-04-20] MEDS: ALBUT/IPRATROP 3MG/0.5MG NEB 3 ML VIAL INH SCH (12:48)
[2024-04-20] MEDS: MIDODRINE HCL 10 MG TAB PO SCH ×2 (12:55→17:52)
[2024-04-20] MEDS ORDERED: AZITHROMYCIN SUSP 200 MG/5 ML GT SCH (13:30)
[2024-04-20] MEDS: TUBE FEEDING WATER FLUSH PEG SCH (14:16)
[2024-04-20] MEDS: PIPERACILLIN/TAZOBACTAM 4.5 GM in DEXTROSE 5% MINI-B 100 ML IV STA (14:16)
[2024-04-20] MEDS: OLANZapine 5 MG TABLET PO SCH (14:18)
[2024-04-20] MEDS: ESCITALOPRAM OXALATE 10 MG TAB PO SCH (14:19)
[2024-04-20] MEDS: APIXABAN 5 MG TABLET PO SCH (14:19)
[2024-04-20] MEDS: ATROPINE SULFATE 1% OP SOLN 5 ML BTL OPL SCH (14:20)
[2024-04-20] MEDS: SCOPOLAMINE 1 MG TDSY TD SCH (14:30)
[2024-04-20] MEDS ORDERED: ONDANSETRON INJ 2 MG/ML 2 ML VIAL IV PRN (14:36)
[2024-04-20] MEDS: fentaNYL citrate PF 100 MCG/2 ML VIAL IV STA (14:46)
[2024-04-20] MEDS: clonazePAM 1 MG TAB PO SCH (14:48)
[2024-04-20] MEDS: LANSOPRAZOLE 30 MG SOLTAB PEG SCH (14:48)
[2024-04-20] MEDS: ACETAMINOPHEN SUSP 325 MG/10.15 ML UDC ONE (14:48)
[2024-04-20] MEDS: POTASSIUM CHLORIDE 20 MEQ/15 ML UDC PEG SCH (14:48)
[2024-04-20] MEDS: guaiFENesin SUGAR FREE 100 MG/5 ML UDC GT SCH (14:49)
[2024-04-20] MEDS: GABAPENTIN 300 MG CAP PO SCH (14:49)
[2024-04-20] MEDS: CHECK SCOPOLAMINE PATCH PLACEMENT SCH (17:22)
[2024-04-20] MEDS: fentaNYL 25 MCG/HR TDSY TD SCH (17:30)
[2024-04-20] MEDS: CHECK fentaNYL PATCH PLACEMENT SCH (17:51)
[2024-04-20] MEDS: ICU Protocol for HYPERglycemia SCH (18:02)
[2024-04-20] MEDS: ICU ELECTROLYTE REPLACEMENT PROTOCOL SCH (18:08)
[2024-04-20] MEDS: PIPERACILLIN/TAZOBACTAM 4.5 GM in DEXTROSE 5% MINI-B 100 ML IV SCH (18:21)
[2024-04-20] MEDS: SODIUM CHLOR 7% 4 ML NEB NEB SCH (19:18)
[2024-04-20] MEDS: ALBUTEROL 0.083% NEBU SOLN 3 ML VIAL INH PRN (19:18)
[2024-04-20] MEDS: MIRTAZAPINE TAB 15 MG TAB PO SCH (20:17)
[2024-04-20] MEDS: MELATONIN 3 MG TAB PO SCH (20:17)
[2024-04-20] MEDS: PLASMA-LYTE A 1,000 ML IV ONE (22:42)
[2024-04-21 04:24] LABS: iSTAT Allen Test Pass; iSTAT Art Bld Gas pCO2 Correct 46 mmHg (35-46); iSTAT Art Bld Gas pH Corrected 7.425 (7.35-7.45); iSTAT Arterial Blood Gas HCO3 30 meg/L (19-24); iSTAT Arterial Blood Gas pCO2 47 mmHg (35-46); iSTAT Arterial Blood Gas pH 7.42 (7.35-7.45); iSTAT Arterial Blood Gas pO2 134 mmHg (80-95); iSTAT Arterial Blood Gas pO2 C 132; iSTAT Carbon Dioxide 32 mmol/L (24-31); iSTAT FiO2 30 %; iSTAT Hematocrit 25 % (42-52); iSTAT Hemoglobin 8.5 g/dl (14.0-18.0); iSTAT Potassium 3.4 mmol/L (3.3-5.0); iSTAT Site R Radial; iSTAT Sodium 138 mmol/L (135-144)
[2024-04-21 04:52] LABS: Hematocrit (blood only) 29.2 % (42.0-52.0); Mean Corpuscular Hemoglobin 26.2 pg (25.0-34.0); Mean Corpuscular Hgb Conc 30.8 g/dL (32.0-36.0); Mean Corpuscular Volume 84.9 fL (80.0-100.0); Platelet Count 204 K/uL (130-400); RDW Coefficient of Variation 15.2 % (11.5-14.5); RDW Standard Deviation 46.9 fL (36.4-46.3); Red Blood Count 3.44 M/uL (4.70-6.10); White Blood Count 6.16 K/ul (4.8-10.8)
[2024-04-21 05:11] LABS: Anion Gap 5 (3-11); Blood Urea Nitrogen 12 mg/dl (6-23); Calcium 9.3 mg/dl (8.6-10.3); Carbon Dioxide 32 mmol/L (21-32); Chloride 100 mmol/L (98-107); Creatinine Clr Calc Pharmacy 477.8 ml/min; Est GFR (African American) > 150.0 ml/min; Est GFR (Non-African American) > 150.0 ml/min; Glucose 93 mg/dl (70-99(Fasting)); Phosphorus 3.9 mg/dl (2.5-4.9); Potassium 3.5 mmol/L (3.5-5.1); Sodium 137 mmol/L (136-145)
--- NOTE | 2024-04-21 07:20 | XRay Report ---
XR chest 1V portable CLINICAL HISTORY: Respiratory failure. COMPARISON STUDY: Chest radiograph and chest CT April 20, 2024. FINDINGS: Tracheostomy tube is in place. There is no pneumothorax. Small to moderate right and small left pleural effusions persist. Bibasilar opacities persist. Cardiomediastinal silhouette is stable. There is no evidence for pulmonary edema. IMPRESSION: 1. Persistent bibasilar opacities which favor pneumonia or aspiration pneumonitis. 2. Small to moderate right and small left pleural effusions, unchanged. ACT 112: Negative or not required by law. Electronically signed by: Jules Cameron M.D. 04/21/2024 7:18 AM
[2024-04-21] MEDS: oxyCODONE HCL IR 5 MG TAB (IMMEDIATE RELEASE) PO PRN (07:25)
[2024-04-21] MEDS: POTASSIUM CHLORIDE / WTR 10 MEQ/100 ML PLCT IV SCH (07:26)
[2024-04-21] MEDS: MAGNESIUM SULFATE / D5W 1 GM/100 ML BAG IV SCH (07:26)
[2024-04-21] MEDS: ACETAMINOPHEN SUSP 325 MG/10.15 ML UDC PO PRN (07:58)
--- NOTE | 2024-04-21 09:15 | Hospitalist Progress Note ---
Date of Service April 21, 2024 Assessment & Plan (1) Sepsis: (2) Acute on chronic hypoxic respiratory failure: (3) Mucus plugging of bronchi: (4) Acute UTI: (5) Chronic pulmonary aspiration: (6) ALS (amyotrophic lateral sclerosis): (7) Quadriplegia: (8) Tracheostomy dependence: (9) Bilateral pleural effusion: Plan: Right greater than left (10) Ventilator dependent: Plan Patient remains critically ill with still significant amount of secretions, still risk for worsening sepsis symptoms. Requires hospital level care and interventions including procedures and specialty evaluation and interventions. Reviewed ad taker plan, anticipate repeat bronchoscopy today Continue antibiotics cover both possible pulmonary and urinary tract infection Continue feedings as coordinated and recommended by dietitian Continue ventilator support Continue aggressive secretion mobilization, chest physiotherapy, mucolytic's Defer to ad taker/pulmonary's recommendations on whether patient would benefit from thoracentesis Monitor cultures Admission and Anticipated Discharge Date Admission Date: April 20, 2024 Subjective Patient reports has had a good night. No acute issues overnight reported by nursing. Patient anticipating repeat bronchoscopy today Physical Exam Physical Exam: Constitutional: Alert HEENT: Mucous membranes moist., Tracheostomy in place, vent dependent Lungs: Decreased breath sounds, some coarse rhonchi CV: S1-S2, regular Abdomen: Soft, nontender, nondistended, PEG tube in place Extremities: No significant edema Neuro: Significant weakness and quadriplegia associated with ALS Psych: Cooperative, normal mood Results & Data Results & Data Vital Signs (Past 12 Hours) Vital Signs Temp Pulse Pulse Resp BP Pulse Ox O2 Del Method 04/21/24 08:33 79 14 98 04/21/24 08:00 86/58 L 04/21/24 08:00 86/58 L 04/21/24 07:57 79 14 100 04/21/24 07:39 97 H 18 97 04/21/24 07:12 71 14 100 04/21/24 07:12 73 18 100 Mechanical Vent 04/21/24 07:00 82/52 L 04/21/24 06:51 79 14 100 04/21/24 06:42 68 14 100 04/21/24 06:01 89/59 L 04/21/24 06:01 89/59 L 04/21/24 06:00 36.8 C 04/21/24 05:51 78 14 100 04/21/24 05:22 81/49 L 08/11/24 05:22 81/49 L 04/21/24 05:21 78 14 100 04/21/24 05:03 71 14 100 04/21/24 04:51 69 14 100 04/21/24 04:03 73 14 99 04/21/24 04:02 86/52 L 04/21/24 04:00 04/21/24 04:00 36.7 C 04/21/24 03:54 69 14 100 04/21/24 03:26 89/57 L 04/21/24 03:15 74 14 100 04/21/24 03:12 73 14 100 04/21/24 03:00 68 14 100 04/21/24 02:09 81/51 L 04/21/24 02:06 73 14 99 04/21/24 02:00 79 16 100 04/21/24 02:00 36.8 C 04/21/24 01:35 81/45 L 04/21/24 01:30 76 14 100 04/21/24 01:03 80 14 100 04/21/24 00:39 74 14 100 04/21/24 00:23 68 14 98 Mechanical Vent 04/21/24 00:09 68 14 99 04/21/24 00:00 77/43 L 04/21/24 00:00 71 04/21/24 00:00 04/21/24 00:00 36.7 C 04/20/24 23:51 70 14 99 04/20/24 23:00 70 14 98 04/20/24 23:00 83/48 L 04/20/24 23:00 83/48 L 04/20/24 23:00 83/48 L 04/20/24 22:18 69 14 97 04/20/24 22:00 36.8 C O2 Flow Rate FiO2 04/21/24 08:33 04/21/24 08:00 04/21/24 08:00 04/21/24 07:57 04/21/24 07:39 04/21/24 07:12 04/21/24 07:12 4 04/21/24 07:00 04/21/24 06:51 04/21/24 06:42 04/21/24 06:01 04/21/24 06:01 04/21/24 06:00 04/21/24 05:51 04/21/24 05:22 04/21/24 05:22 04/21/24 05:21 04/21/24 05:03 04/21/24 04:51 04/21/24 04:03 04/21/24 04:02 04/21/24 04:00 30 04/21/24 04:00 04/21/24 03:54 04/21/24 03:26 04/21/24 03:15 04/21/24 03:12 04/21/24 03:00 04/21/24 02:09 04/21/24 02:06 04/21/24 02:00 04/21/24 02:00 04/21/24 01:35 04/21/24 01:30 04/21/24 01:03 04/21/24 00:39 04/21/24 00:23 4 04/21/24 00:09 04/21/24 00:00 04/21/24 00:00 04/21/24 00:00 30 04/21/24 00:00 04/20/24 23:51 04/20/24 23:00 04/20/24 23:00 04/20/24 23:00 04/20/24 23:00 04/20/24 22:18 04/20/24 22:00 Diagnostic Findings Reviewed imaging, laboratory and diagnostic studies. Pertinent findings as below. Personally reviewed chest CT, bilateral pleural effusions right greater than left, mucous plugging and consolidation BMP and CBC stable Echocardiogram shows normal ejection fraction 55% with right ventricular dilatation and but normal function Reviewed bronchoscopy report from yesterday Reviewed ABG Urine culture pending Sputum culture reviewed
[2024-04-21] MEDS ORDERED: fentaNYL citrate PF 100 MCG/2 ML VIAL IV PRN (10:53)
[2024-04-21] MEDS ORDERED: STAT IV/IM STA (10:53)
--- NOTE | 2024-04-21 11:53 | Procedure Note ---
Procedure Note: Bronchoscopy Procedure Bronchoscopy: Consent was obtained from the patient verbally and from the patient's in written form. Timeout performed immediately prior to the procedure. Patient was administered ketamine and fentanyl prior to the procedure. He was on 100% ventilation mode. Bronchoscope was inserted via the tracheostomy. Bilateral tracheobronchial tree inspection was performed. Thick mucus was noted emanating from the bilateral lower lobes which were suctioned free. I did notice a small area of granulation tissue at the medial aspect of the left mainstem bronchus which was biopsied with forcep biopsies x 2. Hemostasis was achieved. The bronchoscope was then withdrawn and the patient tolerated the procedure well. Follow pathology results from the granulomatous appearing tissue in the left mainstem bronchus. [facility] [place] Procedure Codes (Charges) Pulmonary/Thoracic Procedure 1: Pulmonary and Thoracic: 57332 Bronchoscopy w bronchial or endobronchial bx Procedure 2: Pulmonary and Thoracic: 04083 Bronchoscopy, reclear airway
[2024-04-21] MEDS: KETAMINE HCL IV ONE (12:17)
[2024-04-22 04:49] LABS: Basophils # (auto) 0.04 K/uL (0.00-0.20); Basophils % (auto) 0.7 %; Eosinophils # (auto) 0.24 K/uL (0.00-0.50); Eosinophils % (auto) 4.3 %; Hemoglobin 8.3 g/dl (14.0-18.0); Immature Granulocytes # (auto) 0.01 K/uL (0.01-0.20); Immature Granulocytes % (auto) 0.2 %; Lymphocytes # (auto) 1.03 K/uL (1.20-3.40); Lymphocytes % (auto) 18.5 %; Mean Corpuscular Hemoglobin 25.9 pg (25.0-34.0); Mean Corpuscular Hgb Conc 30.7 g/dL (32.0-36.0); Mean Corpuscular Volume 84.1 fL (80.0-100.0); Monocytes # (auto) 0.44 K/uL (0.11-0.59); Monocytes % (auto) 7.9 %; Neutrophils % (auto) 68.4 %; Platelet Count 231 K/uL (130-400); RDW Coefficient of Variation 15.4 % (11.5-14.5); RDW Standard Deviation 46.9 fL (36.4-46.3); Red Blood Count 3.21 M/uL (4.70-6.10); White Blood Count 5.56 K/ul (4.8-10.8)
[2024-04-22 04:55] LABS: Anion Gap 6 (3-11); Blood Urea Nitrogen 8 mg/dl (6-23); Calcium 8.8 mg/dl (8.6-10.3); Carbon Dioxide 30 mmol/L (21-32); Chloride 100 mmol/L (98-107); Creatinine Clr Calc Pharmacy 480.3 ml/min; Est GFR (African American) > 150.0 ml/min; Est GFR (Non-African American) > 150.0 ml/min; Glucose 122 mg/dl (70-99(Fasting)); Magnesium 1.9 mg/dl (1.7-2.4); Phosphorus 3.7 mg/dl (2.5-4.9); Potassium 3.5 mmol/L (3.5-5.1); Sodium 136 mmol/L (136-145)
[2024-04-22] MEDS: MAGNESIUM OXIDE 400 MG TAB NG SCH (06:38)
[2024-04-22] MEDS: POTASSIUM CHLORIDE 20 MEQ/15 ML UDC NG SCH (06:38)
--- NOTE | 2024-04-22 07:09 | XRay Report ---
XR chest 1V portable CLINICAL HISTORY: Resp failure TECHNIQUE: Single frontal radiograph of the chest was obtained. Comparison: Comparison is made to chest radiograph 04/21/2024 FINDINGS: Tracheostomy tube is seen. The cardiomediastinal silhouette is normal. Bibasilar opacities are again seen likely representing atelectasis or aspiration, similar to prior exam. Small pleural effusions ca nnot be excluded. IMPRESSION: Stable bibasilar airspace opacities and likely small bilateral pleural effusions. ACT 112: Negative or not required by law. Electronically signed by: Keny Cantu M.D. 04/22/2024 7:08 AM
[2024-04-22 08:48] VITALS: TEMP 98.4
--- NOTE | 2024-04-22 10:00 | Critical Care Progress Note ---
Date of Service April 22, 2024 Assessment & Plan (1) Aspiration pneumonia: Plan: Patient at risk for recurrent aspiration pneumonia due to poor cough mechanism from ALS. Will start percussive vest therapy 4 times a day. Continue frequent suctioning. Start CoughAssist 4 times daily. Patient has CoughAssist at home, they will be bringing it in and has been trained to confirm effectiveness. He is effective with a CoughAssist in the hospital. Discontinuing Robitussin and nebs given patient requires CoughAssist -I feel this is more reflective of mucoid impaction versus aspiration pneumonitis (2) Bilateral pleural effusion: Plan: Discontinue IV fluids. Suspect element of low oncotic pressure leading to dependent pleural effusions bilaterally. (3) ALS (amyotrophic lateral sclerosis): Plan: Progression of disease as patient has now become chronically vent dependent over the last 3 months (4) GERD (gastroesophageal reflux disease): Plan: Recommend continued antireflux medications. (5) Tracheostomy dependence: Plan: Patient is fully dependent on ventilator and tracheostomy. Will continue ventilator. (6) Complicated UTI (urinary tract infection): Plan: No white count, grew 3 organisms, was on short course of antibiotics I do not feel there is an active clinical infection at this time. Discontinue Jean Baptiste, continue condom cath (7) Anticoagulant long-term use: Plan: On 5 mg apixaban will delineate indication and dosing Plan Stable for downgrade out of ICU versus discharge home Follow-up with PCP at end of week or start of next week Patient's was at bedside and updated. Admission and Anticipated Discharge Date Admission Date: April 20, 2024 Subjective No events overnight. Feels improved Physical Exam Physical Exam: General: Alert. nontoxic. Skin: Warm, dry, Head: Atraumatic Ears, nose, mouth and throat: airway patent, tracheostomy in place with cuff up Cardiovascular: Normal peripheral perfusion Respiratory: no respiratory distress Gastrointestinal: Non distended Musculoskeletal: No deformity Results & Data Results & Data Vital Signs (Past 12 Hours) Vital Signs Temp Pulse Pulse Resp BP BP BP 04/22/24 08:48 36.9 C 04/22/24 08:11 83/55 L 04/22/24 08:09 74 14 04/22/24 08:00 72 14 04/22/24 08:00 80/53 L 04/22/24 08:00 67 04/22/24 07:27 04/22/24 07:06 21 04/22/24 07:06 88 21 04/22/24 07:00 74 14 04/22/24 07:00 92/61 L 04/22/24 06:45 84/55 L 04/22/24 06:45 84/55 L 04/22/24 06:42 69 14 04/22/24 06:30 66 14 04/22/24 06:00 65 14 04/22/24 06:00 76/48 L 04/22/24 06:00 76/48 L 04/22/24 06:00 71 14 84/55 L 04/22/24 05:30 67 14 04/22/24 05:00 64 14 04/22/24 05:00 78/51 L 04/22/24 05:00 78/51 L 04/22/24 05:00 65 14 78/51 L 04/22/24 04:36 73 14 04/22/24 04:18 85 17 04/22/24 04:16 91/56 L 04/22/24 04:16 91/56 L 04/22/24 04:00 72/47 L 04/22/24 04:00 37.0 C 72 21 91/56 L 04/22/24 04:00 36.5 C 77 18 133/79 04/22/24 03:54 66 14 04/22/24 03:30 73 14 04/22/24 03:03 73 14 04/22/24 03:00 82/44 L 04/22/24 03:00 74 14 82/44 L 04/22/24 02:57 73 14 04/22/24 02:48 72 14 04/22/24 02:03 67 14 04/22/24 02:00 75/51 L 04/22/24 02:00 75/51 L 04/22/24 02:00 37 C 66 14 75/41 L 04/22/24 01:51 73 12 04/22/24 01:50 75 18 04/22/24 01:36 68 14 04/22/24 01:00 79/51 L 04/22/24 01:00 60 16 87/58 L 04/22/24 00:33 61 14 04/22/24 00:24 63 14 04/22/24 00:00 76/47 L 04/22/24 00:00 76/47 L 04/22/24 00:00 36.8 C 64 14 04/22/24 00:00 61 04/21/24 23:48 61 14 04/21/24 23:33 61 14 04/21/24 23:06 81/56 L 04/21/24 23:06 81/56 L 04/21/24 23:02 73/47 L 04/21/24 23:02 73/47 L 04/21/24 23:02 73/47 L 04/21/24 23:00 37 C 66 14 81/56 L 04/21/24 22:57 61 17 04/21/24 22:48 62 15 04/21/24 22:00 69 14 04/21/24 22:00 93/59 L 04/21/24 22:00 04/21/24 22:00 37.0 C 65 14 93/59 L Pulse Ox O2 Del Method O2 Flow Rate FiO2 04/22/24 08:48 04/22/24 08:11 BiPAP 04/22/24 08:09 100 04/22/24 08:00 100 04/22/24 08:00 04/22/24 08:00 04/22/24 07:27 BiPAP 4 04/22/24 07:06 04/22/24 07:06 100 Mechanical Vent 4 04/22/24 07:00 100 04/22/24 07:00 04/22/24 06:45 04/22/24 06:45 04/22/24 06:42 100 04/22/24 06:30 100 04/22/24 06:00 100 04/22/24 06:00 04/22/24 06:00 04/22/24 06:00 100 BiPAP 4 04/22/24 05:30 100 04/22/24 05:00 100 04/22/24 05:00 04/22/24 05:00 04/22/24 05:00 100 BiPAP 4 04/22/24 04:36 100 04/22/24 04:18 92 04/22/24 04:16 04/22/24 04:16 04/22/24 04:00 04/22/24 04:00 100 Mechanical Vent 4 04/22/24 04:00 94 Room Air 04/22/24 03:54 97 04/22/24 03:30 99 04/22/24 03:03 99 04/22/24 03:00 04/22/24 03:00 99 BiPAP 4 04/22/24 02:57 99 04/22/24 02:48 100 04/22/24 02:03 100 04/22/24 02:00 04/22/24 02:00 04/22/24 02:00 100 BiPAP 4 04/22/24 01:51 100 04/22/24 01:50 100 Mechanical Vent 4 04/22/24 01:36 100 04/22/24 01:00 04/22/24 01:00 100 BiPAP 4 04/22/24 00:33 100 04/22/24 00:24 100 04/22/24 00:00 04/22/24 00:00 04/22/24 00:00 100 BiPAP 4 04/22/24 00:00 04/21/24 23:48 100 04/21/24 23:33 100 04/21/24 23:06 04/21/24 23:06 04/21/24 23:02 04/21/24 23:02 04/21/24 23:02 04/21/24 23:00 100 BiPAP 4 04/21/24 22:57 100 04/21/24 22:48 100 04/21/24 22:00 04/21/24 22:00 04/21/24 22:00 Nasal Cannula, BiPAP 4 04/21/24 22:00 100 BiPAP 4 Critical Care Results & Data Vital Signs (Past 12 Hours) Vital Signs Temp Pulse Pulse Resp BP BP BP 04/22/24 08:48 36.9 C 04/22/24 08:11 83/55 L 04/22/24 08:09 74 14 04/22/24 08:00 72 14 04/22/24 08:00 80/53 L 04/22/24 08:00 67 04/22/24 07:27 04/22/24 07:06 21 04/22/24 07:06 88 21 04/22/24 07:00 74 14 04/22/24 07:00 92/61 L 04/22/24 06:45 84/55 L 04/22/24 06:45 84/55 L 04/22/24 06:42 69 14 04/22/24 06:30 66 14 04/22/24 06:00 65 14 04/22/24 06:00 76/48 L 04/22/24 06:00 76/48 L 04/22/24 06:00 71 14 84/55 L 04/22/24 05:30 67 14 04/22/24 05:00 64 14 04/22/24 05:00 78/51 L 04/22/24 05:00 78/51 L 04/22/24 05:00 65 14 78/51 L 04/22/24 04:36 73 14 04/22/24 04:18 85 17 04/22/24 04:16 91/56 L 04/22/24 04:16 91/56 L 04/22/24 04:00 72/47 L 04/22/24 04:00 37.0 C 72 21 91/56 L 04/22/24 04:00 36.5 C 77 18 133/79 04/22/24 03:54 66 14 04/22/24 03:30 73 14 04/22/24 03:03 73 14 04/22/24 03:00 82/44 L 04/22/24 03:00 74 14 82/44 L 04/22/24 02:57 73 14 04/22/24 02:48 72 14 04/22/24 02:03 67 14 04/22/24 02:00 75/51 L 04/22/24 02:00 75/51 L 04/22/24 02:00 37 C 66 14 75/41 L 04/22/24 01:51 73 12 04/22/24 01:50 75 18 04/22/24 01:36 68 14 04/22/24 01:00 79/51 L 04/22/24 01:00 60 16 87/58 L 04/22/24 00:33 61 14 04/22/24 00:24 63 14 04/22/24 00:00 76/47 L 04/22/24 00:00 76/47 L 04/22/24 00:00 36.8 C 64 14 04/22/24 00:00 61 Pulse Ox O2 Del Method O2 Flow Rate FiO2 04/22/24 08:48 04/22/24 08:11 BiPAP 04/22/24 08:09 100 04/22/24 08:00 100 04/22/24 08:00 08/12/24 08:00 04/22/24 07:27 BiPAP 4 04/22/24 07:06 04/22/24 07:06 100 Mechanical Vent 4 04/22/24 07:00 100 04/22/24 07:00 04/22/24 06:45 04/22/24 06:45 04/22/24 06:42 100 04/22/24 06:30 100 04/22/24 06:00 100 04/22/24 06:00 04/22/24 06:00 04/22/24 06:00 100 BiPAP 4 04/22/24 05:30 100 04/22/24 05:00 100 04/22/24 05:00 04/22/24 05:00 04/22/24 05:00 100 BiPAP 4 04/22/24 04:36 100 04/22/24 04:18 92 04/22/24 04:16 04/22/24 04:16 04/22/24 04:00 04/22/24 04:00 100 Mechanical Vent 4 04/22/24 04:00 94 Room Air 04/22/24 03:54 97 04/22/24 03:30 99 04/22/24 03:03 99 04/22/24 03:00 04/22/24 03:00 99 BiPAP 4 04/22/24 02:57 99 04/22/24 02:48 100 04/22/24 02:03 100 04/22/24 02:00 04/22/24 02:00 04/22/24 02:00 100 BiPAP 4 04/22/24 01:51 100 04/22/24 01:50 100 Mechanical Vent 4 04/22/24 01:36 100 04/22/24 01:00 04/22/24 01:00 100 BiPAP 4 04/22/24 00:33 100 04/22/24 00:24 100 04/22/24 00:00 04/22/24 00:00 04/22/24 00:00 100 BiPAP 4 04/22/24 00:00 Lab & Micro Results (Past 24 Hours) RBC 3.21 M/uL (4.70-6.10) L 04/22/24 WBC 5.56 K/ul (4.8-10.8) 04/22/24 Hgb 8.3 g/dl (14.0-18.0) L 04/22/24 Hct 27.0 % (42.0-52.0) L 04/22/24 MCV 84.1 fL (80.0-100.0) 04/22/24 MCH 25.9 pg (25.0-34.0) 04/22/24 MCHC 30.7 g/dL (32.0-36.0) L 04/22/24 RDW Standard Deviation 46.9 fL (36.4-46.3) H 04/22/24 RDW Coefficient of Variation 15.4 % (11.5-14.5) H 04/22/24 Plt Count 231 K/uL (130-400) 04/22/24 MPV 12.0 fL (9.4-12.4) 04/22/24 Neutrophils (%) (Auto) 68.4 % 04/22/24 Lymphocytes (%) (Auto) 18.5 % 04/22/24 Monocytes # (Auto) 0.44 K/uL (0.11-0.59) 04/22/24 Eosinophils # (Auto) 0.24 K/uL (0.00-0.50) 04/22/24 Immature Granulocyte % (Auto) 0.2 % 04/22/24 Neutrophils # (Auto) 3.80 K/uL (1.40-6.50) 04/22/24 Lymphocytes # (Auto) 1.03 K/uL (1.20-3.40) L 04/22/24 Monocytes # (Auto) 0.44 K/uL (0.11-0.59) 04/22/24 Eosinophils # (Auto) 0.24 K/uL (0.00-0.50) 04/22/24 Basophils # (Auto) 0.04 K/uL (0.00-0.20) 04/22/24 Immature Granulocyte # (Auto) 0.01 K/uL (0.01-0.20) 4 Na 136 mmol/L (136-145) 04/22/24 K 3.5 mmol/L (3.5-5.1) 04/22/24 Cl 100 mmol/L (98-107) 04/22/24 CO2 30 mmol/L (21-32) 04/22/24 Anion Gap 6 (3-11) 04/22/24 BUN 8 mg/dl (6-23) 04/22/24 Creatinine < 0.20 mg/dl (0.6-1.4) L 04/22/24 Estimated GFR ( Amer) > 150.0 ml/min 04/22/24 Estimated GFR (Non-Af Amer) > 150.0 ml/min 04/22/24 BUN/Creatinine Ratio TNP 04/22/24 Glu 122 mg/dl (70-99(Fasting)) H 04/22/24 Ca 8.8 mg/dl (8.6-10.3) 04/22/24 Phosphorus Level 3.7 mg/dl (2.5-4.9) 04/22/24 Mg 1.9 mg/dl (1.7-2.4) 04/22/24 04:21 Calcium Level 8.8 mg/dl (8.6-10.3) 04/22/24 04:21 Microbiology 04/20/24 Unknown Gram Stain - Final Bronch Chesaning, Left Lower Lobe Bronchial Culture - Preliminary Moderate normal toro present, final report to follow. 04/20/24 06:39 Urine Culture - Preliminary Urine,Straight Cath Three types of organisms present, all high counts. Repeat collection recommended. No further identifications or sensitivities to follow. Diagnostic Findings (Past 24 Hours) Chest X-Ray 04/22/24 07:00 XR chest 1V portable CLINICAL HISTORY: Resp failure TECHNIQUE: Single frontal radiograph of the chest was obtained. Comparison: Comparison is made to chest radiograph 04/21/2024 FINDINGS: Tracheostomy tube is seen. The cardiomediastinal silhouette is normal. Bibasilar opacities are again seen likely representing atelectasis or aspiration, similar to prior exam. Small pleural effusions cannot be excluded. IMPRESSION: Stable bibasilar airspace opacities and likely small bilateral pleural effusions. ACT 112: Negative or not required by law. Electronically signed by: Keny Cantu M.D. 04/22/2024 7:08 AM I & O Totals 24 Hours 04/21/24 04/22/24 04/23/24 06:59 06:59 06:59 Intake Total 2250 / 2250 1853.333 / 1853.333 108 / 108 Output Total 1970 1385 / 1385 525 / 525 Balance 279 / 279 468.333 / 468.333 -417 / -417 Cumulative 04/20/24 05:16 thru 04/22/24 10:00 Intake Total 4211.333 Output Total 3881 Balance 330.333 RT Ventilator Mngmt (Last Documented) Ventilator Ordered Settings Ventilator Support Mode CPAP 04/21/24 04:00 Respiratory Rate 14 04/22/24 08:09 Ventilator Tidal Volume 510 04/21/24 12:00 Setting Minute Ventilation 7.1 04/22/24 07:06 Ventilator Positive Pressure 14 04/22/24 07:06 Support Setting Positive End Expiratory 8 04/22/24 07:06 Pressure Fraction of Inspired Oxygen 4 04/22/24 05:00 Inspiratory Pressure 14 04/20/24 19:58 Machine Comment Home settings PAC.SV RR 14, 14/8 04/20/24 19:58 30% Ventilator - PT Measurements Respiratory Rate 14 Exhaled Tidal Volume 517 Minute Ventilation 7.1 Peak Inspiratory Airway 20 Pressure Respiratory Cycle Inspiratory: 1:3.2 Expiratory Ratio Inspiratory Phase Time 1 End-Tidal CO2 40 Dynamic Lung Compliance 43.08 Normal Static Lung Compliance 48.00 Patient Measurements Comment Trach care completed cough assist Coding Level of Care Code 45055 SUB INP/OBS CARE 3/50MIN Diagnoses Aspiration pneumonia J69.0 Aspiration pneumonia type: unspecified Laterality: bilateral Lung location: unspecified part of lung Bilateral pleural effusion J90 ALS (amyotrophic lateral sclerosis) G12.21 GERD (gastroesophageal reflux disease) K21.9 Tracheostomy dependence Z93.0 Complicated UTI (urinary tract infection) N39.0 Anticoagulant long-term use Z79.01 (1) Aspiration pneumonia Aspiration pneumonia type: unspecified Laterality: bilateral Lung location: unspecified part of lung Qualified Code(s): J69.0 - Pneumonitis due to inhalation of food and vomit
--- NOTE | 2024-04-22 11:21 | Discharge Summary ---
Discharge Summary Date of Service April 22, 2024 Principal Dx & Hospital Course #1 = Principal Diagnosis (1) Acute on chronic hypoxic respiratory failure: (2) Mucus plugging of bronchi: (3) Chronic pulmonary aspiration: (4) ALS (amyotrophic lateral sclerosis): (5) Quadriplegia: (6) Tracheostomy dependence: (7) Bilateral pleural effusion: Right greater than left (8) Ventilator dependent: Plan Patient 49-year-old gentleman ventilator dependent with chronic tracheostomy due to ALS presented to the emergency room with increasing shortness of breath and chest pain concern for sepsis due to pneumonia and possible UTI. Patient was admitted to the hospital. CT of the chest was performed. CT ruled out a pulmonary embolism but did show extensive mucous plugging and postobstructive atelectasis. Gas Appliance Adjuster/pulmonary consultation was obtained. They evaluated the patient and recommended bronchoscopy. Underwent bronchoscopy with lavage of mucous plugging on 04/20/2024 and 04/21/2024. Patient had significant improvement in his respiratory status. Chest pain resolved. Urine culture did not grow any significant growth and urinary tract infection was ruled out. Sputum culture did not grow any significant growth and pneumonia was ruled out. Antibiotics were discontinued. Blood cultures did not grow any significant bacteria. On the day of discharge she was on his usual ventilation. His demonstrated good knowledge of the CoughAssist and how to continue to try and mobilize his secretions. He was discharged home with his usual care. Notes For Next Care Provider Will need ongoing support for his multiple medical issues. Encouraging secretion mobilization Medication Changes From Visit None Admission HPI Per Admitting Provider Patient is a 49-year-old gentleman with ALS on chronic ventilator, PEG tube feedings and recurrent hospitalizations. He recently been in the hospital for an aspiration pneumonia. Came to the emergency room with above complaints. In the emergency room urinalysis was suggestive of urinary tract infection. He did require significant suctioning of the large amount of mucus and this did seem to improve his respiratory status. Patient was a little tachycardic. Appears that he is chronically hypotensive and the fact that he is on midodrine and did not receive his medications yet today however due to his overall condition was referred for evaluation for admission. Time my evaluation patient states that his chest pain and shortness of breath is completely resolved. His is at the bedside and essentially all the history is obtained from her. She is a primary caregiver and does a great job of taking care of him at home. She reports that earlier in the week did have a clot in his urine. Also noted that his urine was a little bit more concentrated and dark. Did not have a significant odor that she noticed. He does wear a condom catheter but does not have an inserted Jean Baptiste catheter chronically. And started noticing some increased sputum but it is not dark in color is not bloody. He has not had any fevers at home. However overnight started with shortness of breath and chest pain which prompted evaluation in the emergency room. Patient all states states has been having some abdominal discomfort intermittently still tolerating his tube feeds but not his full feeds as as may be normally he does. His states that he seems to have improved after he completed the antibiotics from his recent hospitalization stressed over the last couple days these few things have turned up. His states that he did have some constipation in the week which resolved with treatment with MiraLAX no blood in the stool. No vomiting. Has not needed increased amounts of oxygen that she knows of. They are very consistent with doing his chest therapies and suctioning and trach care. Admission Exam Per Admitting Provider See H&P Discharge Exam Constitutional: Alert, no distress, nontoxic HEENT: Mucous membranes moist. Trach site clean and intact Lungs: Decreased breath sounds, improved airflow through lower lobes, improved rhonchi CV: S1-S2, regular Abdomen: Soft, nontender, nondistended, PEG site clean and dry Extremities: No significant edema Neuro: No new deficits, chronic deficits associated with his ALS Psych: Cooperative, normal mood Updated Medication List Medication Instructions Recorded Confirmed Type apixaban 5 mg tablet (Eliquis) 5 mg feeding tube BID 11/19/20 03/28/24 History ipratropium 0.5 mg-albuterol 3 mg 3 ml inhalation BID 07/25/23 03/28/24 History (2.5 mg base)/3 mL nebulization soln gabapentin 300 mg capsule 600 mg feeding tube TID 11/14/23 03/28/24 History clonazepam 0.5 mg tablet 0.5 mg feeding tube TID PRN Anxiety 02/05/24 03/28/24 History scopolamine base 1 mg over 3 days 1 patch topical [id number] 02/05/24 03/28/24 History transdermal patch Pantoprazole/Sodium Bicarb 40 mg feeding tube QAM 03/28/24 03/28/24 History albuterol sulfate 2.5 mg/3 mL 2.5 mg inhalation Q6H PRN 03/28/24 03/28/24 History (0.083 %) solution for nebulization Shortness Of Breath Or Wheezing atropine 1 % eye drops 1 drp buccal TID 03/28/24 03/28/24 History clonazepam 1 mg tablet 0.75 mg feeding tube TID 03/28/24 03/28/24 History fentanyl 25 mcg/hr transdermal 1 patch transdermal Q72H 03/28/24 03/28/24 History patch furosemide 20 mg tablet (Lasix) 20 mg feeding tube DAILY 03/28/24 03/28/24 History melatonin 3 mg tablet 3 mg feeding tube HS 03/28/24 03/28/24 History midodrine 10 mg tablet 10 mg PO TID 03/28/24 03/28/24 History mirtazapine 7.5 mg tablet 7.5 mg feeding tube HS 03/28/24 03/28/24 History olanzapine 5 mg tablet 5 mg feeding tube DAILY 03/28/24 03/28/24 History oxycodone 5 mg tablet 7.5 mg feeding tube Q4H PRN Pain, 03/28/24 03/28/24 History Moderate potassium bicarbonate-citric acid 25 meq feeding tube DAILY 03/28/24 03/28/24 History 25 mEq effervescent tablet amoxicillin 400 mg-potassium 10 ml G-tube BID #280 mL 04/01/24 Rx clavulanate 57 mg/5 mL oral suspension escitalopram oxalate 10 mg tablet 30 mg (3 x 10 mg) feeding tube QAM 04/02/24 Rx (Lexapro) #90 tabs Hospital Stay Data Consultations 04/20/24 12:42 Consult Gas Appliance Adjuster Routine Diagnostic Imagining Performed Reviewed imaging, laboratory and diagnostic studies. Pertinent findings as below. CTA chest negative for PE, significant mucous plugging, chronic bilateral pleural effusion Blood culture no growth to date Urine culture no growth to date BMP and CBC overall stable for the patient at baseline 04/20/24 09:20 CT angio chest PE protocol Stat Pending Results Patient Have Any Pending Studies at Discharge: No Discharge Instructions Given to Patient (Per Discharging Provider) Continue to do chest physiotherapy and CoughAssist at home Home Health Attestation I certify that this patient is under my care and that I, or a physicians respiratory equipment assistant working with me, had a face to-face encounter that meets the home health [id number] encounter requirements with this patient. The encounter with the patient was in whole, or in part, for the following medical condition, which is the primary reason for home health care (list medical condition): I certify that, based on my findings, the following services are medically necessary home health services: My clinical findings support the need for the above services because: Further, I certify that my clinical findings support that this patient is homebound (i.e. absences from home require considerable and taxing effort and are for medical reasons or yarsanism services or infrequently or of short dura tion when for other reasons) because: Certification for Home Health Services: Based on the above findings, I certify that this patient is confined to the home and needs intermittent longterm care, physical therapy and/or speech therapy or continues to need occupational therapy. The patient is under my care, and I have initiated the establishment of the plan of care. This patient will be followed by a physician who will periodically review the plan of care. Total Time Total Time Spent Total Time Spent (In Minutes): 40
[2024-04-22] MEDS ORDERED: fentaNYL 25 MCG/HR TDSY TD STA (12:36)
[2024-04-22 12:52] VITALS: RESP 19; O2SAT 98
[2024-04-22 13:24] VITALS: BP 83/55; PULSE 68
[2024-04-22] MEDS ORDERED: CHECK fentaNYL PATCH PLACEMENT SCH (16:00)
== END 2024-04-22 14:09 | disposition home health service (06) | DRG 871 ==
LOC: ED 05:23 → 1E 10:05